=== PATIENT | female | born 1960 | race African-American/Black ===

== ENCOUNTER → 2020-07-08 13:52 | Outpatient (BNVA) | payer MEDICARE, SELFPAY | PROVIDERS: PCP Family Medicine; Referring Provider Family Medicine; Visit Provider Anesthesiology | DX: G89.4 Chronic pain syndrome (principal); M48.062 Spinal stenosis, lumbar region with neurogenic claudication; Z79.891 Long term (current) use of opiate analgesic | CPT/HCPCS: 99213 ==

== ENCOUNTER 2020-07-09 13:00 | Outpatient (RCR) | payer MEDICARE, SELFPAY ==
--- NOTE | 2020-07-09 13:33 | MHC.PT.OD ---
[facility] [place] [facility] [place] [facility] [employer] [facility] [address] Betzy Almanza [address] [phone] F: [phone] F: [phone] F: [phone] F: [phone] Physical Therapy Daily Note Diagnosis: Date of Surgery: Date of Evaluation: 07/07/20 Treatments to Date: 12 Cancellations to Date: No Shows to Date: Authorized Visits: 16 Insurance End Date: Precautions/ Contraindications:IE: PATIENT IS A 59 Y/O FEMALE WITH C/O OF DIFFICULTY WALKING AND POOR BALANCE. PATIENT DOES HAVE HX OF LEFT CVA WITH RIGHT SIDE WEAKNESS. 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 PATIENT DOES WEAR LET SHOE FOAM ORTHOSIS TO ADDRESS 1ST MTP WEIGHT SHIFT WELL A CUSTOM J BRACE WITH MEDIAL/LATERAL STABILITY. PATIENT LIVES AT HOME WITH ROOMMATE ON A 3RD FLOOR, WITH ELEVATOR ACCESS. PATIENT IS CURRENTLY WALKING WITH FWW FOR AMBULATION UP TO COMMUNITY DISTANCE WITH DIFFICULTY OF 500 FEET. PRIOR WALKING WITH SINGLE POINT CANE. PATIENT ALSO REPORTS HX OF FALLS. Subjective: PATIENT REPORTS BEING COMPLIANT WITH HEP AND WALKING PROGRAM AT HOME WITH HELP OF ELECTRONICS RECYCLER. PATIENT DOES REPORT PAIN DOES CHANGE IN FREQUENCY BUT IS MANAGED WITH USE OF MEDICATIONS AND ACTIVITY MANAGEMENT. PATIENT REPORTS HAVING FITTED FOR SHOES TO ADDRESS DIABETES. PATIENT DOES REPORT SHE HAS SEEN IMPROVEMENT WITH ADL'S WITH USE OF FWW AND ENERGY CONSERVATION TECHNIQUES. Pain Score: 7 Pain Location: LUMBAR Objective Flowsheet: Tests & Measures HIP GIRDLE MMT: ABDUCTION: 4-/5 BILATERAL ADDUCTION: 4/5 IR: RIGHT 4/5 LEFT 4-/5 ER: RIGHT 4/5 LEFT 4-/5 PATIENT ABLE TO WALK DISTANCE OF 100 FEET WITH REST BREAKS AND USE OF FWW KNEE EXTENSORS: 4+/5 BILATERAL KNEE FLEXORS: 4+/5 BILATERAL Exercises REVIEW AND PATIENT AND MATERIALS RECYCLER EDUCATION OF DISCHARGE PLAN OF CARE. D/C ASSESMENT Modalities TENS (LUMBAR, 100 PPS, 0 RAMP, 4.5 MA) Assessment: PATIENT PRESENTS WITHSAFE USE OF FWW WITH WALKING AND TRANSFERS. OVERALL IMPROVEMENT OF CORE CONTROL AND LE IS PRESENT ALLOWING FOR IMPROVED STATIC BALANCE AND STEPPING STRATEGIES OF 50%. PATIENT WILL BENEFIT FROM MOTORIZED SCOOTER FOR AMBULATION OF > 150 DUE TO FATIGUE, DECREASED PROPIOCEPTION AND DECREASED SENSATION. PT Plan: DYNAMIC STABILITY, BALANCE PROGRESSION, GAIT TRAINING, LE STRENGTHENING, INCREASED AROM, TE, MAN, TA, NR, GAIT, MODALITIES PRN Discharge Today? Yes Short Term Goals: 1. MET ( RIGHT: 10 LEFT: 9) 2. INDEPENDENT WITH HEP Radiagraph Operator Goals: 1. PATIENT WILL TOLERATE 15 MINUTES OF STANDING WITH USE OF FWW PRN (80% MET) 2. PATIENT WILL PRESENT WITH HEEL STRIKE ON LEFT FOOT 25% OF GAIT CYCLE. (MET WITH USE FWW) 3. INCREASE MMT TO LE BY 1 MM GRADE TO ASSIST WITH TRANSFERS AND GAIT (MET 4-/5) 4. PATIENT WILL PRESENT WITH 50% STEPPING STRATEGIES WITH WEIGHT SHIFT (MET) 5. PATIENT WILL PRESENT WITH SYMMETRICAL WEIGHT SHIFT THROUGH GAIT CYCLE 6. DECREASE PAIN AT WORST TO 5/10 (NOT MET) 7. INCREASE ACTIVITY TOLERANCE TO 20 MINUTES TO ASSIST WITH ADLS (75% MET) 8. PATIENT WILL BE ABLE TO TOLERATE AMBULATION OF COMMUNITY DISTANCES WITH PROPER AND SAFE USE OF AD
--- NOTE | 2020-07-09 13:42 | MHC.PT.DC ---
[facility] [place] [facility] [place] Office [place] Office [address] Betzy Almanza [address] [phone] F: [phone] F: [phone] F: [phone] F: [phone] Physical Therapy Discharge Report Diagnosis: LOWER BACK PAIN AND DIFFICULTY WITH WALKING Date of Surgery: Date of Evaluation: 04/28/20 Date of Discharge: 07/09/20 Treatments to Date: 12 Cancellations to Date: 3 No Shows to Date: Discharge Status: Independent with HEP Discharge Summary: PATIENT REPORTS BEING COMPLIANT WITH HEP AND WALKING PROGRAM AT HOME WITH HELP OF SOCIAL WORK ASSISTANT. PATIENT DOES REPORT PAIN DOES CHANGE IN FREQUENCY BUT IS MANAGED WITH USE OF MEDICATIONS AND ACTIVITY MANAGEMENT. PATIENT REPORTS HAVING FITTED FOR SHOES TO ADDRESS DIABETES. PATIENT DOES REPORT SHE HAS SEEN IMPROVEMENT WITH ADL'S WITH USE OF FWW AND ENERGY CONSERVATION TECHNIQUES. PATIENT TO CONTINUE WITH HEP TO MAINTAIN AND FURTHER PROGRESS STATUS. WILL WARRANT USE OF MOTORIZED SCOOTER FOR COMMUNITY DISTANCES. Please sign and return to therapist. Thank you for your referral.
== END 2020-07-30 08:40 | disposition other institution (70) ==
LOC: HO.PTWFD 13:00
PROVIDERS: PCP Family Medicine; Visit Provider Family Medicine
DX: R29.898 Other symptoms and signs involving the musculoskeletal system (principal); R26.81 Unsteadiness on feet; M79.606 Pain in leg, unspecified
CPT/HCPCS: 97014; 97110

== ENCOUNTER 2020-07-14 15:07 | Outpatient (REF) | payer MEDICARE, SELFPAY ==
--- NOTE | 2020-07-14 15:15 | MR_ITS ---
EXAMINATION: MR LUMBAR SPINE WITHOUT CONTRAST CLINICAL INFORMATION: Spinal stenosis. Neurogenic claudication. COMPARISON: No relevant prior imaging. TECHNIQUE: MRI of the lumbar spine was obtained using routine sequences without contrast. FINDINGS: There is transitional anatomy at the lumbosacral junction with partial lumbarization of S1. There is slight grade 1 anterolisthesis of L3 on L4 related to facet degenerative changes at this level. Alignment is otherwise normal. Vertebral heights are preserved. No acute bone marrow signal changes. There are mild type II degenerative endplate changes at L5-S1. Bone marrow signal intensity is otherwise unremarkable. There is slight loss of intervertebral disc height and T2 signal intensity at L5-S1. Disc desiccation at multiple additional levels. The tip of the conus medullaris is located at L1-L2. No mass effect on the conus. Visualized distal cord signal intensity is normal. At L1-L2 the annular contour is normal. No canal or neuroforaminal compromise. At L2-L3 the annular contour is normal. Bilateral facet degenerative change. No canal stenosis. No mass effect on the traversing or foraminal nerve root. At L2-L3 there is a pseudodisc bulge. Advanced facet degenerative change. Mild canal stenosis. No mass effect on the traversing or foraminal nerve root. At L4-L5 there is a diffusely bulging disc. Advanced bilateral facet degenerative change. Mild canal stenosis. No mass effect on the traversing or foraminal nerve roots. At L5-S1 there is a broad shallow right central protrusion superimposed upon a bulging disc that causes indentation of the thecal sac. Bilateral facet degenerative change. No canal stenosis. Partial effacement of perineural fat with no more than mild mass effect on the left L5 foraminal nerve roots. Limited visualization the retroperitoneal anatomy reveals no abnormal finding. Psoas and paraspinal muscle groups are symmetric. IMPRESSION: There is transitional spinal anatomy at the lumbosacral junction with partial lumbarization of S1. There is multilevel degenerative spondylosis of the lumbar spine with slight grade 1 anterolisthesis of L3 on L4. There is mild canal stenosis at L3-L4 and L4-L5. Otherwise no canal compromise. A bulging disc in conjunction with facet degenerative change at L5-S1 causes no more than mild mass effect on the left L5 foraminal nerve root.
== END 2020-07-14 15:08 | disposition home or self-care (01) ==
LOC: HO.MRI 15:07
PROVIDERS: Visit Provider Anesthesiology
DX: M48.062 Spinal stenosis, lumbar region with neurogenic claudication (principal)
CPT/HCPCS: 72148

== ENCOUNTER → 2020-07-31 12:34 | Outpatient (BNVA) | payer MEDICARE, SELFPAY | PROVIDERS: PCP Family Medicine; Referring Provider Family Medicine; Visit Provider Dietitian, Registered | DX: Z76.89 Persons encountering health services in other specified circumstances (principal) ==

== ENCOUNTER → 2020-08-06 13:51 | Outpatient (BNVA) | payer MEDICARE, SELFPAY | PROVIDERS: PCP Family Medicine; Referring Provider Family Medicine; Visit Provider Nurse Practitioner Gerontology | DX: E11.42 Type 2 diabetes mellitus with diabetic polyneuropathy (principal); E11.22 Type 2 diabetes mellitus with diabetic chronic kidney disease; I12.9 Hypertensive chronic kidney disease with stage 1 through stage 4 chronic kidney disease, or unspecified chronic kidney disease; N18.4 Chronic kidney disease, stage 4 (severe); Z79.4 Long term (current) use of insulin; E78.5 Hyperlipidemia, unspecified | CPT/HCPCS: 82947; 99212 ==

== ENCOUNTER → 2020-08-10 13:07 | Outpatient (BNVA) | payer MEDICARE, SELFPAY | PROVIDERS: PCP Family Medicine; Visit Provider Anesthesiology | DX: G89.4 Chronic pain syndrome (principal); M48.062 Spinal stenosis, lumbar region with neurogenic claudication; Z79.891 Long term (current) use of opiate analgesic | CPT/HCPCS: 99212 ==

== ENCOUNTER → 2020-09-16 13:54 | Outpatient (BNVA) | payer MEDICARE, SELFPAY | PROVIDERS: PCP Family Medicine; Visit Provider Dietitian, Registered | DX: Z76.89 Persons encountering health services in other specified circumstances (principal) ==

== ENCOUNTER → 2020-09-21 14:26 | Outpatient (BNVA) | payer MEDICARE, SELFPAY | PROVIDERS: PCP Family Medicine; Visit Provider Nurse Practitioner Gerontology | DX: Z13.89 Encounter for screening for other disorder (principal) | CPT/HCPCS: Q3014 ==

== ENCOUNTER 2020-09-28 12:26 | Outpatient (REF) | payer MEDICARE, SELFPAY ==
[2020-09-28 13:27] LABS: Basophils Absolute Auto 0.1 X10*3/uL (0.0-0.2); Basophils Percent Auto 0.5 % (0-2); Eosinophils Absolute Auto 0.3 X10*3/uL (0.0-0.4); Eosinophils Percent Auto 3.1 % (0-4); Hematocrit 26.8 % (37-47); Hemoglobin 8.4 g/dl (12.0-16.0); Imm Gran Abs Auto 0.04 X10*3/uL (0.00-0.03); Imm Gran Pct Auto 0.4 % (0.0-0.4); Immature Retic Fraction 37.4 % (3.0-15.9); Lymphocytes Absolute Auto 1.3 X10*3/uL (1.2-4.9); Lymphocytes Percent Auto 13.2 % (20-40); MANUAL DIFF FLAG SCAN; Mean Corpuscular HGB Conc 31.3 g/dl (31.0-35.0); Mean Corpuscular Volume 89.3 fL (80-98); Mean Platelet Volume 11.2 fL (9.4-12.3); Monocytes Absolute Auto 0.6 X10*3/uL (0.1-1.2); Monocytes Percent Auto 5.9 % (2-11); NRBC Pct Auto 0.2 /100WBC (0.0-0.2); Neutrophils Absolute Auto 7.5 X10*3/uL (2.0-8.3); Neutrophils Percent Auto 76.9 % (45-73); Platelet Count 299 X10*3/uL (160-400); Red Cell Distribution Width 20.9 % (11.0-16.0); Retic HGB Equivalent 31.3 pg (30.0-35.0); Reticulocyte Percent 5.9 % (0.5-1.8); Reticulocytes Absolute 0.176 X10*6/uL (0.026-0.095); SCAN SMEAR FLAG 1; White Blood Count 9.7 X10*3/uL (4.8-10.8)
[2020-09-28 13:53] LABS: Alanine Aminotransferase 13 U/L (0-31); Albumin Level 3.8 g/dL (3.5-5.0); Alkaline Phosphatase 101 U/L (39-117); Anion Gap 14 (12-20); Aspartate Amino Transferase 11 U/L (5-31); Bilirubin Total 0.3 mg/dL (0.0-1.0); Blood Urea Nitrogen 34 mg/dL (9-16); Calcium 8.8 mg/dL (8.4-10.2); Carbon Dioxide 27 mmol/L (22-29); Chloride 104 mmol/L (96-108); Estimated Glomerular Filt Rate 28; Glucose Random 251 mg/dL (60-115); Iron 64 mcg/dL (30-160); Percent Iron Saturation 27 % (15-50); Potassium 4.2 mmol/l (3.3-5.1); Sodium 141 mmol/L (135-145); Total Iron Binding Capacity 238 mcg/dL (228-428); Total Protein 6.7 g/dL (6.5-8.0); Unsaturated Iron Binding 174 ug/dL
[2020-09-28 13:59] LABS: B Type Natriuretic Peptide 273 pg/mL (<100)
[2020-09-28 14:08] LABS: SLIDE REVIEW VERIFIED
[2020-09-28 14:14] LABS: Ferritin 220 ng/mL (10-250)
[2020-09-28 14:30] LABS: Folate 8.7 ng/mL (> or = 4.0); Vitamin B12 456 pg/mL (200-900)
[2020-09-29 14:05] LABS: Microalbum/Creatinine Ratio Ur 27.9 ug/mg cr
[2020-10-03 14:13] LABS: Fructosamine 351 umol/L (205-285)
== END 2020-09-28 12:27 | disposition home or self-care (01) ==
LOC: HO.WFDLDS 12:26
PROVIDERS: Nurse Practitioner Gerontology; Visit Provider Family Medicine
DX: I50.9 Heart failure, unspecified (principal); D64.9 Anemia, unspecified; N17.9 Acute kidney failure, unspecified; E11.22 Type 2 diabetes mellitus with diabetic chronic kidney disease; E11.42 Type 2 diabetes mellitus with diabetic polyneuropathy
CPT/HCPCS: 36415; 80053; 82043; 82607; 82728; 82746; 82985; 83540; 83880; 85025; 85045

== ENCOUNTER 2020-09-29 | Outpatient (REF) | payer MEDICARE, SELFPAY | END 2020-09-29 00:01 | disposition home or self-care (01) | LOC: HO.LNP | PROVIDERS: Visit Provider Family Medicine | DX: Z13.89 Encounter for screening for other disorder (principal) ==

== ENCOUNTER 2020-10-09 12:10 | Outpatient (REF) | payer MEDICARE, SELFPAY ==
[2020-10-09 13:53] LABS: MANUAL DIFF FLAG NO
[2020-10-09 13:59] LABS: Basophils Absolute Auto 0.1 X10*3/uL (0.0-0.2); Basophils Percent Auto 0.5 % (0-2); Eosinophils Absolute Auto 0.3 X10*3/uL (0.0-0.4); Eosinophils Percent Auto 2.9 % (0-4); Hematocrit 28.8 % (37-47); Hemoglobin 8.6 g/dl (12.0-16.0); Imm Gran Abs Auto 0.05 X10*3/uL (0.00-0.03); Imm Gran Pct Auto 0.5 % (0.0-0.4); Lymphocytes Absolute Auto 1.6 X10*3/uL (1.2-4.9); Lymphocytes Percent Auto 15.7 % (20-40); Mean Corpuscular HGB Conc 29.9 g/dl (31.0-35.0); Mean Corpuscular Hemoglobin 27.9 pg (27.0-33.0); Mean Corpuscular Volume 93.5 fL (80-98); Mean Platelet Volume 11.1 fL (9.4-12.3); Monocytes Absolute Auto 0.8 X10*3/uL (0.1-1.2); Monocytes Percent Auto 7.6 % (2-11); Neutrophils Absolute Auto 7.4 X10*3/uL (2.0-8.3); Neutrophils Percent Auto 72.8 % (45-73); Platelet Count 346 X10*3/uL (160-400); Red Blood Count 3.08 X10*6/uL (4.20-5.50); Red Cell Distribution Width 21.2 % (11.0-16.0); White Blood Count 10.1 X10*3/uL (4.8-10.8)
[2020-10-09 14:29] LABS: Anion Gap 12 (12-20); Blood Urea Nitrogen 22 mg/dL (9-16); Calcium 8.5 mg/dL (8.4-10.2); Carbon Dioxide 28 mmol/L (22-29); Chloride 102 mmol/L (96-108); Estimated Glomerular Filt Rate 31; Glucose Random 192 mg/dL (60-115); Potassium 4.6 mmol/l (3.3-5.1); Sodium 137 mmol/L (135-145)
[2020-10-09 14:34] LABS: B Type Natriuretic Peptide 205 pg/mL (<100)
== END 2020-10-09 12:11 | disposition home or self-care (01) ==
LOC: HO.WFDLDS 12:10
PROVIDERS: Visit Provider Family Medicine
DX: I50.9 Heart failure, unspecified (principal); N17.9 Acute kidney failure, unspecified; D64.9 Anemia, unspecified
CPT/HCPCS: 36415; 80048; 83880; 85025

== ENCOUNTER → 2020-11-02 12:37 | Outpatient (BNVA) | payer MEDICARE, SELFPAY | PROVIDERS: PCP Family Medicine; Visit Provider Nurse Practitioner Gerontology | DX: Z13.89 Encounter for screening for other disorder (principal) | CPT/HCPCS: Q3014 ==

== ENCOUNTER → 2020-12-16 11:25 | Outpatient (BNVA) | payer MEDICARE, SELFPAY | PROVIDERS: PCP Family Medicine; Visit Provider Dietitian, Registered ==

== ENCOUNTER 2020-12-22 11:47 | Outpatient (REF) | payer MEDICARE, SELFPAY ==
[2020-12-23 08:36] LABS: HBsAGNum1 0.15 S/CO (0.00-0.99); HIV AB/AG Nonreactive (Nonreactive); HIV Num 1 0.06 S/CO (0.00-0.99); Hepatitis B Surface Antigen Negative (Negative)
[2020-12-23 08:45] LABS: Syphilis Screen Nonreactive (Nonreactive)
[2020-12-23 09:02] LABS: ~HepC Num1 0.11 S/CO (0.00-0.79); ~Hepatitis C Antibody Nonreactive (Nonreactive)
== END 2020-12-22 11:48 | disposition home or self-care (01) ==
LOC: HO.WFDLDS 11:47
PROVIDERS: Visit Provider Obstetrics & Gynecology
DX: Z11.3 Encounter for screening for infections with a predominantly sexual mode of transmission (principal); Z11.4 Encounter for screening for human immunodeficiency virus [HIV]
CPT/HCPCS: 36415; 86780; 86803; 87340; 87389

== ENCOUNTER 2021-01-01 12:19 | Outpatient (RCR) | payer MEDICARE, SELFPAY | END 2021-01-01 13:29 | disposition other institution (70) | LOC: HO.PTWFD 12:19 | PROVIDERS: Visit Provider Family Medicine | DX: S29.012A Strain of muscle and tendon of back wall of thorax, initial encounter (principal) ==

== ENCOUNTER 2021-01-07 10:24 | Outpatient (RCR) | payer MEDICARE, SELFPAY | END 2021-02-04 08:42 | disposition other institution (70) | LOC: HO.PTWFD 10:24 | PROVIDERS: Visit Provider Family Medicine | DX: S29.012A Strain of muscle and tendon of back wall of thorax, initial encounter (principal) | CPT/HCPCS: 97163; 97530 ==

== ENCOUNTER → 2021-02-08 11:11 | Outpatient (BNVA) | payer MEDICARE, SELFPAY | PROVIDERS: PCP Family Medicine; Visit Provider Nurse Practitioner Gerontology | DX: E11.42 Type 2 diabetes mellitus with diabetic polyneuropathy (principal); E11.22 Type 2 diabetes mellitus with diabetic chronic kidney disease; I12.9 Hypertensive chronic kidney disease with stage 1 through stage 4 chronic kidney disease, or unspecified chronic kidney disease; N18.9 Chronic kidney disease, unspecified; E78.5 Hyperlipidemia, unspecified | CPT/HCPCS: Q3014 ==

== ENCOUNTER → 2021-02-09 10:50 | Outpatient (BNVA) | payer MEDICARE, SELFPAY | PROVIDERS: PCP Family Medicine; Visit Provider Nurse Practitioner Family | DX: G47.30 Sleep apnea, unspecified (principal) | CPT/HCPCS: Q3014 ==

== ENCOUNTER 2021-02-12 13:52 | Outpatient (REF) | payer MEDICARE, SELFPAY ==
[2021-02-12 14:31] LABS: MANUAL DIFF FLAG NO
[2021-02-12 14:37] LABS: Basophils Percent Auto 0.4 % (0-2); Eosinophils Absolute Auto 0.4 X10*3/uL (0.0-0.4); Hematocrit 29.1 % (37-47); Imm Gran Abs Auto 0.04 X10*3/uL (0.00-0.03); Imm Gran Pct Auto 0.5 % (0.0-0.4); Lymphocytes Absolute Auto 1.5 X10*3/uL (1.2-4.9); Lymphocytes Percent Auto 20.7 % (20-40); Mean Corpuscular HGB Conc 30.9 g/dl (31.0-35.0); Mean Corpuscular Hemoglobin 27.3 pg (27.0-33.0); Mean Corpuscular Volume 88.2 fL (80-98); Monocytes Absolute Auto 0.6 X10*3/uL (0.1-1.2); Monocytes Percent Auto 8.3 % (2-11); Neutrophils Absolute Auto 4.9 X10*3/uL (2.0-8.3); Neutrophils Percent Auto 65.1 % (45-73); Platelet Count 381 X10*3/uL (160-400); Red Cell Distribution Width 16.4 % (11.0-16.0); White Blood Count 7.5 X10*3/uL (4.8-10.8)
[2021-02-12 14:44] LABS: Estimated Average Glucose 183 mg/dL; Hemoglobin A1C 149.6718 umol/L
[2021-02-12 14:58] LABS: Cholesterol 106 mg/dL; HDL Cholesterol 50 mg/dL; LDL Cholesterol Calculated 28 mg/dl; Triglycerides 142 mg/dL
[2021-02-12 15:22] LABS: Erythrocyte Sedimentation Rate 70 MM/HR (0-20)
[2021-02-13 14:07] LABS: CRP High Sensitivity >10.0 mg/L
[2021-02-16 05:12] LABS: Fructosamine 424 umol/L (205-285)
== END 2021-02-12 13:53 | disposition home or self-care (01) ==
LOC: HO.LAB 13:52
PROVIDERS: PCP Family Medicine; Visit Provider Nurse Practitioner Gerontology
DX: S29.012A Strain of muscle and tendon of back wall of thorax, initial encounter (principal); E11.42 Type 2 diabetes mellitus with diabetic polyneuropathy; E11.22 Type 2 diabetes mellitus with diabetic chronic kidney disease; N18.9 Chronic kidney disease, unspecified
CPT/HCPCS: 36415; 80061; 82985; 83036; 85025; 85652; 86141

== ENCOUNTER → 2021-03-24 12:50 | Outpatient (BNVA) | payer MEDICARE, SELFPAY | PROVIDERS: PCP Family Medicine; Visit Provider Dietitian, Registered | DX: E11.22 Type 2 diabetes mellitus with diabetic chronic kidney disease (principal); N18.4 Chronic kidney disease, stage 4 (severe); Z79.4 Long term (current) use of insulin | CPT/HCPCS: 97803 ==

== ENCOUNTER → 2021-04-02 12:56 | Outpatient (BNVA) | payer MEDICARE, SELFPAY | PROVIDERS: PCP Family Medicine; Visit Provider Nurse Practitioner Gerontology | DX: E11.65 Type 2 diabetes mellitus with hyperglycemia (principal); E11.22 Type 2 diabetes mellitus with diabetic chronic kidney disease; E11.21 Type 2 diabetes mellitus with diabetic nephropathy; E11.42 Type 2 diabetes mellitus with diabetic polyneuropathy; I12.9 Hypertensive chronic kidney disease with stage 1 through stage 4 chronic kidney disease, or unspecified chronic kidney disease; N18.9 Chronic kidney disease, unspecified; E78.5 Hyperlipidemia, unspecified; E66.09 Other obesity due to excess calories; Z68.33 Body mass index [BMI] 33.0-33.9, adult; Z88.8 Allergy status to other drugs, medicaments and biological substances; Z79.4 Long term (current) use of insulin; Z79.899 Other long term (current) drug therapy | CPT/HCPCS: 82947; 99212 ==

== ENCOUNTER 2021-05-04 11:17 | Outpatient (REF) | payer OTHER, SELFPAY ==
--- NOTE | ~2021-05-04 | XR_ITS ---
EXAMINATION: XR HAND, RIGHT XR HAND, LEFT CLINICAL INFORMATION: Elevated ESR. COMPARISON: None TECHNIQUE: 3 views each hand. FINDINGS: LEFT HAND: There is mild reduction of the PIP and DIP joint space. The MCP joint space is normal. There are no bony erosive changes, fracture or dislocation. There is mild soft tissue swelling of the PIP joint 2nd through 5th digits. RIGHT HAND: There is mild reduction in the PIP and DIP joint space. The MCP joint space is maintained. There is no visible acute fracture, dislocation or subluxation. No bony erosive changes. There is mild soft tissue swelling of the PIP joints 2nd through 5th digits. XR/XR hand LT min 3V IMPRESSION: Bilateral mild degenerative arthritic changes PIP and DIP joints. No osteopenia. No bony erosive changes. Mild soft tissue swelling PIP joints 2nd through 5th digits of both hands.
--- NOTE | ~2021-05-04 | XR_ITS ---
EXAMINATION: XR HAND, RIGHT XR HAND, LEFT CLINICAL INFORMATION: Elevated ESR. COMPARISON: None TECHNIQUE: 3 views each hand. FINDINGS: LEFT HAND: There is mild reduction of the PIP and DIP joint space. The MCP joint space is normal. There are no bony erosive changes, fracture or dislocation. There is mild soft tissue swelling of the PIP joint 2nd through 5th digits. RIGHT HAND: There is mild reduction in the PIP and DIP joint space. The MCP joint space is maintained. There is no visible acute fracture, dislocation or subluxation. No bony erosive changes. There is mild soft tissue swelling of the PIP joints 2nd through 5th digits. XR/XR hand RT min 3V IMPRESSION: Bilateral mild degenerative arthritic changes PIP and DIP joints. No osteopenia. No bony erosive changes. Mild soft tissue swelling PIP joints 2nd through 5th digits of both hands.
== END 2021-05-04 11:18 | disposition home or self-care (01) ==
LOC: HO.XRAY 11:17
PROVIDERS: PCP Family Medicine; Visit Provider Student in an Organized Health Care Education/Training Program
DX: R79.82 Elevated C-reactive protein (CRP) (principal); R70.0 Elevated erythrocyte sedimentation rate
CPT/HCPCS: 73130; 99202

== ENCOUNTER → 2021-05-11 10:37 | Outpatient (BNVA) | payer OTHER, SELFPAY | PROVIDERS: PCP Family Medicine; Visit Provider Nurse Practitioner Family | CPT/HCPCS: Q3014 ==

== ENCOUNTER 2021-05-14 13:31 | Outpatient (REF) | payer OTHER, SELFPAY ==
[2021-05-14 14:50] LABS: Anion Gap 13 (12-20); Blood Urea Nitrogen 26 mg/dL (9-16); Calcium 9.5 mg/dL (8.4-10.2); Carbon Dioxide 27 mmol/L (22-29); Chloride 100 mmol/L (96-108); Estimated Glomerular Filt Rate 26; Phosphorus 3.1 mg/dL (2.7-4.5); Potassium 4.3 mmol/L (3.3-5.1); Sodium 136 mmol/L (135-145)
[2021-05-14 15:13] LABS: Vitamin D 25-OH Total 18.7 ng/mL (>30)
[2021-05-17 13:01] LABS: Calcium (PTHI) 9.2 mg/dL (8.6-10.4); PTHI 167 pg/mL (14-64)
== END 2021-05-14 13:32 | disposition home or self-care (01) ==
LOC: HO.LAB 13:31
PROVIDERS: Absent Provider Internal Medicine Nephrology; PCP Family Medicine; Visit Provider Student in an Organized Health Care Education/Training Program
DX: I12.9 Hypertensive chronic kidney disease with stage 1 through stage 4 chronic kidney disease, or unspecified chronic kidney disease (principal); D63.1 Anemia in chronic kidney disease; N18.4 Chronic kidney disease, stage 4 (severe)
CPT/HCPCS: 36415; 80051; 82306; 82310; 82565; 83970; 84100; 84520

== ENCOUNTER → 2021-05-21 10:25 | Outpatient (BNVA) | payer OTHER, SELFPAY | PROVIDERS: Visit Provider Student in an Organized Health Care Education/Training Program ==

== ENCOUNTER → 2021-07-20 10:32 | Outpatient (BNVA) | payer OTHER, SELFPAY | PROVIDERS: PCP Family Medicine; Visit Provider Nurse Practitioner Gerontology | DX: Z13.89 Encounter for screening for other disorder (principal) | CPT/HCPCS: Q3014 ==

== ENCOUNTER 2021-08-31 10:36 | Outpatient (REF) | payer OTHER, SELFPAY ==
[2021-08-31 11:09] LABS: MANUAL DIFF FLAG NO
[2021-08-31 11:49] LABS: Basophils Percent Auto 0.5 % (0-2); Eosinophils Absolute Auto 0.2 X10*3/uL (0.0-0.4); Hematocrit 33.2 % (37.0-47.0); Imm Gran Abs Auto 0.02 X10*3/uL (0.00-0.03); Imm Gran Pct Auto 0.3 % (0.0-0.4); Lymphocytes Absolute Auto 1.4 X10*3/uL (1.2-4.9); Lymphocytes Percent Auto 18.4 % (20-40); Mean Corpuscular HGB Conc 30.1 g/dl (31.0-35.0); Mean Corpuscular Hemoglobin 24.6 pg (27.0-33.0); Mean Corpuscular Volume 81.6 fL (80.0-98.0); Mean Platelet Volume 10.8 fL (9.4-12.3); Monocytes Absolute Auto 0.6 X10*3/uL (0.1-1.2); Monocytes Percent Auto 8.1 % (2-11); Neutrophils Absolute Auto 5.2 x10*3/uL (2.0-8.3); Neutrophils Percent Auto 69.7 % (45-73); Platelet Count 337 X10*3/uL (160-400); Red Blood Count 4.07 X10*6/uL (4.20-5.50); Red Cell Distribution Width 26.1 % (11.0-16.0); White Blood Count 7.4 X10*3/uL (4.8-10.8)
[2021-08-31 12:15] LABS: Iron 40 mcg/dL (30-160); Percent Iron Saturation 13 % (15-50); Total Iron Binding Capacity 300 mcg/dL (228-428); Unsaturated Iron Binding 260 ug/dL
[2021-08-31 12:22] LABS: Alanine Aminotransferase 10 U/L (0-31); Albumin Level 3.9 g/dL (3.5-5.0); Alkaline Phosphatase 96 U/L (39-117); Anion Gap 17 (12-20); Aspartate Amino Transferase 10 U/L (5-31); Bilirubin Total 0.5 mg/dL (0.0-1.0); Blood Urea Nitrogen 28 mg/dL (9-16); C Reactive Protein 1.75 mg/dL (< or = 0.50); Calcium 9.7 mg/dL (8.4-10.2); Carbon Dioxide 24 mmol/L (22-29); Chloride 102 mmol/L (96-108); Estimated Glomerular Filt Rate 21; Glucose Random 160 mg/dL (60-115); Potassium 3.8 mmol/L (3.3-5.1); Rheumatoid Factor < 15.0 IU/mL (<15.0); Sodium 139 mmol/L (135-145); Total Protein 7.1 g/dL (6.5-8.0)
[2021-08-31 12:29] LABS: Erythrocyte Sedimentation Rate 40 MM/HR (0-20)
[2021-08-31 12:37] LABS: Vitamin D 25-OH Total 35.2 ng/mL (>30)
[2021-09-01 13:41] LABS: Calcium (PTHI) 9.3 mg/dL (8.6-10.4); PTHI 118 pg/mL (14-64)
[2021-09-02 13:53] LABS: Prot Elec - Albumin 3.7 g/dL (3.8-4.8); Prot Elec - Alpha1 0.4 g/dL (0.2-0.3); Prot Elec - Alpha2 0.9 g/dL (0.5-0.9); Prot Elec - Beta 1 0.4 g/dL (0.4-0.6); Prot Elec - Beta 2 0.4 g/dL (0.2-0.5); Prot Elec - Gamma 1.2 g/dL (0.8-1.7)
[2021-09-02 23:31] LABS: Cyclic Citrullinated Peptide <16 UNITS
[2021-09-07 15:51] LABS: IgA 294 mg/dL (47-310); IgG 1360 mg/dL (600-1640); IgM 69 mg/dL (50-300)
== END 2021-08-31 10:37 | disposition home or self-care (01) ==
LOC: HO.LAB 10:36
PROVIDERS: Student in an Organized Health Care Education/Training Program; PCP Family Medicine; Visit Provider Internal Medicine Nephrology
DX: I12.9 Hypertensive chronic kidney disease with stage 1 through stage 4 chronic kidney disease, or unspecified chronic kidney disease (principal); N18.30 Chronic kidney disease, stage 3 unspecified; E11.22 Type 2 diabetes mellitus with diabetic chronic kidney disease; D63.1 Anemia in chronic kidney disease; R70.0 Elevated erythrocyte sedimentation rate; R79.82 Elevated C-reactive protein (CRP)
CPT/HCPCS: 36415; 80053; 82306; 82784; 83540; 83970; 84100; 84165; 85025; 85652; 86140; 86200; 86334; 86431

== ENCOUNTER → 2021-09-28 11:41 | Outpatient (REF) | payer OTHER, SELFPAY ==
[2021-09-28 15:00] LABS: Influenza A PCR NEGATIVE (Negative); Influenza B PCR NEGATIVE (Negative); Resp Syncy Virus RNA Qual PCR NEGATIVE (Negative); SARS COV2 PCR INHOUSE NEGATIVE (Negative)
== END ==
LOC: HO.SL 11:41
PROVIDERS: Hospitalist; PCP Family Medicine; Visit Provider Nurse Practitioner Family
DX: G47.33 Obstructive sleep apnea (adult) (pediatric) (principal); J06.9 Acute upper respiratory infection, unspecified; J02.8 Acute pharyngitis due to other specified organisms; B97.89 Other viral agents as the cause of diseases classified elsewhere; I50.9 Heart failure, unspecified; D64.9 Anemia, unspecified; N17.9 Acute kidney failure, unspecified; E11.22 Type 2 diabetes mellitus with diabetic chronic kidney disease; E11.42 Type 2 diabetes mellitus with diabetic polyneuropathy; Z20.822 Contact with and (suspected) exposure to COVID-19
CPT/HCPCS: 0241U; 99211

== ENCOUNTER → 2021-10-04 14:04 | Outpatient (BNVA) | payer OTHER, SELFPAY | PROVIDERS: PCP Family Medicine; Visit Provider Dietitian, Registered | DX: E11.22 Type 2 diabetes mellitus with diabetic chronic kidney disease (principal); I12.9 Hypertensive chronic kidney disease with stage 1 through stage 4 chronic kidney disease, or unspecified chronic kidney disease; N18.4 Chronic kidney disease, stage 4 (severe) | CPT/HCPCS: 97803 ==

== ENCOUNTER 2021-10-12 10:37 | Outpatient (REF) | payer OTHER, SELFPAY ==
[2021-10-12 12:05] LABS: Estimated Average Glucose 148 mg/dL; Hemoglobin A1c % 6.8 %
[2021-10-12 12:18] LABS: Alanine Aminotransferase 10 U/L (0-31); Albumin Level 3.9 g/dL (3.5-5.0); Alkaline Phosphatase 93 U/L (39-117); Anion Gap 16 (12-20); Aspartate Amino Transferase 8 U/L (5-31); Bilirubin Total 0.6 mg/dL (0.0-1.0); Blood Urea Nitrogen 19 mg/dL (9-16); Calcium 9.5 mg/dL (8.4-10.2); Carbon Dioxide 25 mmol/L (22-29); Chloride 105 mmol/L (96-108); Estimated Glomerular Filt Rate 26; Glucose Fasting 156 mg/dL (60-99); Potassium 3.9 mmol/L (3.3-5.1); Sodium 142 mmol/L (135-145); Total Protein 7.5 g/dL (6.5-8.0)
== END 2021-10-12 10:38 | disposition home or self-care (01) ==
LOC: HO.WFDLDS 10:37
PROVIDERS: Visit Provider Family Medicine
DX: Z00.00 Encounter for general adult medical examination without abnormal findings (principal); R73.01 Impaired fasting glucose
CPT/HCPCS: 36415; 80053; 83036

== ENCOUNTER 2022-03-23 12:04 | Outpatient (REF) | payer OTHER, SELFPAY ==
[2022-03-23 13:56] LABS: Alanine Aminotransferase 7 U/L (0-31); Albumin Level 3.7 g/dL (3.5-5.0); Alkaline Phosphatase 137 U/L (39-117); Anion Gap 13 (12-20); Aspartate Amino Transferase 7 U/L (5-31); Bilirubin Total 0.5 mg/dL (0.0-1.0); Blood Urea Nitrogen 26 mg/dL (9-16); Calcium 9.2 mg/dL (8.4-10.2); Carbon Dioxide 25 mmol/L (22-29); Chloride 105 mmol/L (96-108); Estimated Glomerular Filt Rate 21; Glucose Random 161 mg/dL (60-115); Potassium 3.7 mmol/L (3.3-5.1); Sodium 139 mmol/L (135-145)
[2022-03-23 14:32] LABS: B Type Natriuretic Peptide 210 pg/mL (<100)
== END 2022-03-23 12:05 | disposition home or self-care (01) ==
LOC: HO.WFDLDS 12:04
PROVIDERS: Visit Provider Family Medicine
DX: N18.4 Chronic kidney disease, stage 4 (severe) (principal); I50.9 Heart failure, unspecified
CPT/HCPCS: 36415; 80053; 83880

== ENCOUNTER 2022-04-27 | Outpatient (REF) | payer OTHER, SELFPAY | END 2022-04-27 00:01 | disposition home or self-care (01) | LOC: HO.LNP | PROVIDERS: Visit Provider Family Medicine | DX: I11.0 Hypertensive heart disease with heart failure (principal); I50.9 Heart failure, unspecified; L73.2 Hidradenitis suppurativa | CPT/HCPCS: 87071; 87077; 87186; 87205 ==

== ENCOUNTER 2022-05-11 10:59 | Outpatient (REF) | payer OTHER, SELFPAY ==
[2022-05-11 13:40] LABS: MANUAL DIFF FLAG NO
[2022-05-11 13:45] LABS: Basophils Absolute Auto 0.1 X10*3/uL (0.0-0.2); Eosinophils Absolute Auto 0.2 X10*3/uL (0.0-0.4); Eosinophils Percent Auto 3.3 % (0-4); Imm Gran Abs Auto 0.01 X10*3/uL (0.00-0.03); Imm Gran Pct Auto 0.2 % (0.0-0.4); Lymphocytes Absolute Auto 1.1 X10*3/uL (1.2-4.9); Lymphocytes Percent Auto 20.9 % (20-40); Mean Corpuscular Hemoglobin 25.9 pg (27.0-33.0); Mean Corpuscular Volume 83.6 fL (80.0-98.0); Mean Platelet Volume 11.7 fL (9.4-12.3); Monocytes Absolute Auto 0.5 X10*3/uL (0.1-1.2); Monocytes Percent Auto 9.3 % (2-11); Neutrophils Absolute Auto 3.4 x10*3/uL (2.0-8.3); Neutrophils Percent Auto 65.3 % (45-73); Platelet Count 390 X10*3/uL (160-400); Red Blood Count 3.47 X10*6/uL (4.20-5.50); Red Cell Distribution Width 15.7 % (11.0-16.0); White Blood Count 5.2 X10*3/uL (4.8-10.8)
[2022-05-11 14:22] LABS: Alanine Aminotransferase 9 U/L (0-31); Albumin Level 3.5 g/dL (3.5-5.0); Alkaline Phosphatase 116 U/L (39-117); Anion Gap 13 (12-20); Aspartate Amino Transferase 12 U/L (5-31); Bilirubin Total 0.4 mg/dL (0.0-1.0); Blood Urea Nitrogen 34 mg/dL (9-16); Carbon Dioxide 23 mmol/L (22-29); Chloride 103 mmol/L (96-108); Estimated Glomerular Filt Rate 19; Glucose Random 218 mg/dL (60-115); Potassium 4.3 mmol/L (3.3-5.1); Sodium 135 mmol/L (135-145); Total Protein 6.8 g/dL (6.5-8.0)
[2022-05-11 14:35] LABS: B Type Natriuretic Peptide 156 pg/mL (<100)
== END 2022-05-11 11:00 | disposition home or self-care (01) ==
LOC: HO.WFDLDS 10:59
PROVIDERS: Visit Provider Family Medicine
DX: Z00.00 Encounter for general adult medical examination without abnormal findings (principal); L73.2 Hidradenitis suppurativa; I50.9 Heart failure, unspecified
CPT/HCPCS: 36415; 80053; 83880; 85025

== ENCOUNTER 2022-06-13 12:53 | Outpatient (REF) | payer OTHER, SELFPAY | END 2022-06-13 12:54 | disposition home or self-care (01) | LOC: HO.LNP 12:53 | PROVIDERS: Visit Provider Family Medicine | DX: L73.9 Follicular disorder, unspecified (principal); Z22.322 Carrier or suspected carrier of Methicillin resistant Staphylococcus aureus | CPT/HCPCS: 87071; 87077; 87186; 87205 ==

== ENCOUNTER → 2022-08-12 09:46 | Outpatient (BNVA) | payer OTHER, SELFPAY | PROVIDERS: PCP Family Medicine; Visit Provider Nurse Practitioner Family | DX: G47.33 Obstructive sleep apnea (adult) (pediatric) (principal); Z99.89 Dependence on other enabling machines and devices | CPT/HCPCS: 99202 ==

== ENCOUNTER → 2022-12-12 10:42 | Outpatient (BNVA) | payer OTHER, SELFPAY | PROVIDERS: PCP Family Medicine; Visit Provider Nurse Practitioner Family | DX: G47.33 Obstructive sleep apnea (adult) (pediatric) (principal); R40.0 Somnolence; Z99.89 Dependence on other enabling machines and devices | CPT/HCPCS: 99212 ==

== ENCOUNTER 2023-04-17 13:49 | Outpatient (AMB) | payer OTHER, SELFPAY ==
--- NOTE | 2023-04-17 13:57 | A.OFFPC_ITS ---
Vital Signs 04/17/23 14:00 Height 5 ft 6 in Weight 217 lb BMI 35.0 BP 138/72 Blood Pressure Location Lt brachial Position Sitting Pulse 80 Pulse Source Pulse Oximeter Pulse Oximetry (%) 100 Oxygen Delivery Method Room Air Intake Visit Reasons: f/u chronic conditions Intake Note: Patient is here to follow up on chronic conditions and complains of left foot swelling. Patient would like to talk about [employer] system. Allergies baclofen Allergy (Severe, Verified 04/17/23 14:02) can't move sulfacetamide Allergy (Severe, Verified 04/17/23 14:02) tongue swelling sulfur Allergy (Severe, Verified 04/17/23 14:02) tongue swelling Medication List - Last Reconciled 04/17/23 by Tommie Suarez MD acetaminophen 650 mg (2 x 325 mg) PO Q8H PRN albuterol sulfate 90 mcg/actuation (Ventolin HFA) 2 puffs PO QID PRN ammonium lactate 12% 1 appl topical BID 30 days aspirin 81 mg PO DAILY atorvastatin 40 mg PO DAILY blood sugar diagnostic (FreeStyle Lite Strips) USE DIRECTED TO TEST BLOOD SUGAR THREE TIMES DAILY blood-glucose meter (FreeStyle Cheshire Lite kit) As directed 3x/day bumetanide 0.75 mg (1.5 x 0.5 mg) PO DAILY 90 days bumetanide 2 mg (2 x 1 mg) PO DAILY 30 days bupropion HCl 150 mg PO QAM calcitriol 0.25 mcg PO DAILY cariprazine (Vraylar) 1.5 mg PO DAILY cariprazine (Vraylar) 1.5 mg PO DAILY 30 days carvedilol 6.25 mg PO BID clopidogrel 75 mg PO DAILY 90 days docusate sodium (Colace) 100 mg PO TID PRN 30 days dulaglutide (Trulicity) 4.5 mg (0.5 mL) subcut QWEEK epoetin sally (Procrit) 2,000 units IV 3XW ergocalciferol (vitamin D2) 1,250 mcg PO QWEEK famotidine 40 mg PO DAILY 90 days fluticasone propion-salmeterol 250-50 mcg/dose (Advair Diskus) 1 ea PO BID 30 days gabapentin 100 mg PO BID hydralazine 50 mg PO TID 30 days insulin aspart U-100 (Novolog FlexPen U-100 Insulin aspart) 8 units (0.08 mL) subcut DAILY 30 days insulin glargine (Lantus Solostar U-100 Insulin) 33 units (0.33 mL) subcut QAM 30 days isosorbide mononitrate ER 30 mg PO DAILY lactulose 20 grams (30 mL) PO DAILY PRN 1 month lurasidone (Latuda) 20 mg PO DAILY magnesium hydroxide (Dulcolax (magnesium hydroxide)) 5 mL PO DAILY PRN 30 days miscellaneous medical supply Disposable Absorbent Pads DX: Urinary incontinence As directed, 2 per night, duration 999 days, 30 day supply montelukast 10 mg PO DAILY pantoprazole 20 mg PO DAILY 90 days venlafaxine ER 225 mg PO DAILY Tobacco use date assessed: 02/01/23 Dental Screening Dental Screen Date: 04/17/23 Did you have a dental visit in the last 12 months?: Yes Did you have a dental problem in the last 6 months where you did not have access to dental care?: No Was dental information given to patient?: No HPI f/u chronic conditions HPI Details 62 y/o female presents to f/u chronic conditions such as diabetes, CHF and renal failure. Had increased her Lantus to 28 units as she was having some elevated morning blood sugars. Further increased Lantus to 30 units. A1c today 04/17/23 is 8.2% which has worsened. She also has complaints of L foot swelling. HPI Comments History of Present Illness Details Documentation assistance for Tommie Suarez MD, was provided by Sanjiv Nguyen,? Networking Administrator on 04/17/2023 2:44 PM MAYI. I, Dr. Suarez, have read, observed, and verified documentation.? [facility] Medical History Chronic kidney disease, stage 4 (severe) Chronic pain syndrome Chronic, continuous use of opioids CVA (cerebral vascular accident) Essential hypertension Hyperlipidemia LDL goal <70 Myocardial infarction Obesity due to excess calories Sleep apnea Spinal stenosis, lumbar region with neurogenic claudication Type 2 diabetes mellitus with diabetic polyneuropathy Surgical History History of abdominoplasty History of rotator cuff surgery Hx of toe surgery Status post breast reduction Family History Father No problems noted. Mother Diabetes Hypertension Sister No problems noted. Sister No problems noted. Son No problems noted. Social History Household Members: Friend(s) Household Members Other:: roomate Housing: Apartment Alcohol intake: never Patient Tobacco Use Status: Former Tobacco user Quit Date: 2019 Tobacco use type: Cigarette Cigarette Packs Per Day: 0.5 e-Cigarette/Vaping Use: Never Used Second Hand Smoke Exposure: No Advance Directives Date on File: 07/07/20 service: No Current occupational status: disabled Current occupational exposures/hazards: No Cognitive needs: No Hearing needs: No Vision needs: No Questionnaire Thrive Questionnaire Date Thrive assessed: 05/19/21 BRITT-7 AMB Questionnaire BRITT-7 Date BRITT - 7 assessed: 05/19/21 Source: Developed by Drs. Andre Hilario, Kasey Patel, Jose Rausch and colleagues, with an educational micha from [employer]. Physical exam (Primary Care) Vital Signs: Last Vital Signs Pulse 80 04/17/23 14:00 BP 138/72 04/17/23 14:00 Pulse Ox 100 04/17/23 14:00 Oxygen Delivery Method Room Air 04/17/23 14:00 BMI result Body Mass Index 35.0 Tobacco/Smoking Status: Tobacco use Status Tobacco use date assessed 02/01/23 04/17/23 13:59 Patient Tobacco Use Status Former Tobacco user 04/17/23 13:59 Tobacco use type Cigarette 04/17/23 13:59 e-Cigarette/Vaping Use Never Used 04/17/23 13:59 Thrive Assessment: Date of Thrive Assessment Date Thrive assessed 05/19/21 04/17/23 13:59 Results AMB Hemoglobin A1c AMB Hemoglobin A1c 8.2 % Last Edit by Kamryn Armenta CMA on 04/17/23 14:41 Assessment and Plan Assessment & Plan (1) Type 2 diabetes mellitus with diabetic chronic kidney disease: Code(s): E11.22 - Type 2 diabetes mellitus with diabetic chronic kidney disease Qualifiers: Diabetes mellitus termite treater helper insulin use: with jail use Plan: A1c worsened at a 8.2%. Goal is less than 7.0% Increase Lantus to 33 units daily and continue NovoLog with meals Will get her back in a month. Will likely need further adjustments. She had been doing better on a [employer] system. Referring her to the nurse navigator for additional diabetic teaching and to look in to further use of Jazmine continuous use monitoring Also has appointment with Nephrology a week from Monday (2) Essential hypertension: Code(s): I10 - Essential (primary) hypertension Plan: Fairly well controlled. Continue current medication (3) CHF (congestive heart failure): Code(s): I50.9 - Heart failure, unspecified Plan: Lungs are clear She is on carvedilol and bumetanide Continue current medication regimen Follow-up with Cardiology as recommended (4) Swelling of left foot: Code(s): M79.89 - Other specified soft tissue disorders Plan: Lower extremity swelling on the left which does not improve when foot is elevated or she is sleeping Checking D-dimer to rule out DVT Elevate leg Orders: Orders AMB Hemoglobin A1c Today Z13.9 - Encounter for screening, unspecified US venous duplex LE LT Today M79.89 - Other specified soft tissue disorders Referrals Nurse Navigator Referral E11.42 - Type 2 diabetes mellitus with diabetic polyneuropathy Medications: Changed From insulin aspart U-100 (Novolog FlexPen U-100 Insulin aspart) with dinner 8 units (0.08 mL) subcut DAILY 15 mL 1RF E11.42 - Type 2 diabetes mellitus with diabetic polyneuropathy To insulin aspart U-100 (Novolog FlexPen U-100 Insulin aspart) 4, 8 or 14 Units as directed, with meals 8 units (0.08 mL) subcut DAILY 15 mL 1RF 30 days E11.42 - Type 2 diabetes mellitus with diabetic polyneuropathy From insulin glargine (Lantus Solostar U-100 Insulin) 30 units (0.3 mL) subcut QAM 30 days 9 mL 6RF E11.42 - Type 2 diabetes mellitus with diabetic polyneuropathy To insulin glargine (Lantus Solostar U-100 Insulin) 33 units (0.33 mL) subcut QAM 12 mL 6RF 30 days E11.42 - Type 2 diabetes mellitus with diabetic polyneuropathy Coding Level of Care Code Est Pt Level 4 (13546) Diagnoses Type 2 diabetes mellitus with diabetic chronic kidney disease E11.22 Diabetes mellitus jail insulin use: with jail use Essential hypertension I10 CHF (congestive heart failure) I50.9 Swelling of left foot M79.89
[2023-04-17 14:00] VITALS: BP 138/72; PULSE 80; O2SAT 100; BMI 35.0
== END 2023-04-17 14:56 | disposition home or self-care (01) ==
PROVIDERS: Visit Provider Family Medicine
DX: E11.22 Type 2 diabetes mellitus with diabetic chronic kidney disease (principal); I13.0 Hypertensive heart and chronic kidney disease with heart failure and stage 1 through stage 4 chronic kidney disease, or unspecified chronic kidney disease; I50.9 Heart failure, unspecified; N18.4 Chronic kidney disease, stage 4 (severe); M79.89 Other specified soft tissue disorders
CPT/HCPCS: 83036; 99214

== ENCOUNTER 2023-04-18 13:44 | Outpatient (REF) | payer OTHER, SELFPAY ==
--- NOTE | ~2023-04-18 | US_ITS ---
EXAMINATION: US VENOUS ULTRASOUND WITH DOPPLER LOWER EXTREMITY, LEFT CLINICAL INFORMATION: Swelling of the left foot COMPARISON: None available. TECHNIQUE: Ultrasound of the deep veins is performed from the hip to the calf with compression sonography and color and pulse Doppler assessment. Spectral analysis with color-flow imaging is performed. FINDINGS: There is normal venous compression and respiratory variation and augmented flow. The visualized common femoral vein, superficial femoral vein, profunda femoral vein, popliteal vein, and the trifurcation region shows no evidence of deep venous thrombosis. There is no significant popliteal fossa cyst. If the patient's symptoms persist, followup ultrasound in 5 days 7 days might be of value to exclude proximal propagation from a non-visualized calf vein. US/US venous duplex LE IMPRESSION: No DVT demonstrated in the left lower extremity.
== END 2023-04-18 13:45 | disposition home or self-care (01) ==
LOC: HO.US 13:44
PROVIDERS: PCP Family Medicine; Visit Provider Family Medicine
DX: R60.0 Localized edema (principal)
CPT/HCPCS: 93971

== ENCOUNTER 2023-04-19 10:37 | Outpatient (AMB) | payer OTHER, SELFPAY ==
--- NOTE | 2023-04-19 10:46 | A.OFFVIS_ITS ---
Intake Vital Signs 04/19/23 11:01 BP 112/60 Blood Pressure Location Lt brachial Position Sitting Pulse 80 Pulse Source Pulse Oximeter Pulse Oximetry (%) 100 Oxygen Delivery Method Room Air Intake Visit Reasons: 4m f/u Obstructive sleep apnea-Confirmed Intake Note: F/U for JOHN, asking for new supplies for cpap Major Sales Associate Required: No Allergies baclofen Allergy (Severe, Verified 04/19/23 10:48) can't move sulfacetamide Allergy (Severe, Verified 04/19/23 10:48) tongue swelling sulfur Allergy (Severe, Verified 04/19/23 10:48) tongue swelling HPI HPI Comments History of Present Illness Details 62 y/o female patient presents for follow up of JOHN on CPAP. She states that she restarted using CPAP with new mask. New mask does not leak and she sleeps better with new mask. She using CPAP on an off, keep forgetting using it. The CPAP compliance and therapy response (01/18/23-04/17/23) reviewed with the patient. The usage days 36 days, the average usage hours 6 hrs 30 min. She is on CPAP at [id number], the AHI was 8.6/hr. Pt continues to endorse frequent arousals, and non refreshing sleep. She takes a nap 2-3 hours daily. Pt states that she is not physically active, mostly stays in bed during the day time. [facility] Medical History Chronic kidney disease, stage 4 (severe) Chronic pain syndrome Chronic, continuous use of opioids CVA (cerebral vascular accident) Essential hypertension Hyperlipidemia LDL goal <70 Myocardial infarction Obesity due to excess calories Sleep apnea Spinal stenosis, lumbar region with neurogenic claudication Type 2 diabetes mellitus with diabetic polyneuropathy Surgical History History of abdominoplasty History of rotator cuff surgery Hx of toe surgery Status post breast reduction Family History Father No problems noted. Mother Diabetes Hypertension Sister No problems noted. Sister No problems noted. Son No problems noted. Social History Household Members: Friend(s) Household Members Other:: roomate Housing: Apartment Alcohol intake: never Patient Tobacco Use Status: Former Tobacco user Quit Date: 2019 Tobacco use type: Cigarette Cigarette Packs Per Day: 0.5 e-Cigarette/Vaping Use: Never Used Second Hand Smoke Exposure: No Advance Directives Date on File: 07/07/20 service: No Current occupational status: disabled Current occupational exposures/hazards: No Cognitive needs: No Hearing needs: No Vision needs: No Review of Systems Const All systems reviewed & are unremarkable except as noted in HPI and below ENT Reports Normal hearing present Neuro Reports Normal hearing present Physical Exam Vital Signs: Last Vital Signs Pulse 80 04/19/23 11:01 BP 112/60 04/19/23 11:01 Pulse Ox 100 04/19/23 11:01 Oxygen Delivery Method Room Air 04/19/23 11:01 Const General: cooperative Nutritional Appearance: obese Orientation/consciousness: patient oriented x3 HEENT Throat: Yes other (mallampati grade 4) Neck Neck: Yes full ROM and Yes supple Resp Effort & Inspection: normal respiratory effort and able to speak in complete sentences Neuro General: patient oriented x3 and moves all extremities Cranial nerves: Yes Bilaterally intact EOM present, Yes Normal facial strength present, Yes Midline tongue present, Yes Symmetric palate elevation present, Yes Normal hearing present, Yes Ability to bilaterally rotate head present and Yes Ability to bilaterally elevate shoulders present Cognition (Neuro): normal cognition Gait exam (Neuro): Assisted gait required Gait assisted method: walker Psych Appearance: grossly normal Speech and movement: Slowed movement present (Neuro) Affect: normal affect Attitude: cooperative Assessment & Plan Assessment & Plan (1) Daytime sleepiness: Code(s): R40.0 - Somnolence (2) Obstructive sleep apnea: Comment: (Oct 2017): AHI 14/hr, REM AHI 31/hr, O2 nelida 81%, PLMS 7.4/hr, PLMS arousal index 1.8/hr. Code(s): G47.33 - Obstructive sleep apnea (adult) (pediatric) Plan CPAP pressure changed to [id number]. Stressed compliance, use CPAP every night and more than 4 hours. Advised patient to increase physical activity during daytime. Sleep hygiene education provided. Advised patient to have routine sleep schedule, avoid taking nap. Coding Level of Care Code Est Pt Level 3 (92584) Diagnoses Daytime sleepiness R40.0 Obstructive sleep apnea G47.33
[2023-04-19 11:01] VITALS: BP 112/60; PULSE 80; O2SAT 100
== END 2023-04-19 11:19 | disposition home or self-care (01) ==
PROVIDERS: Visit Provider Nurse Practitioner Family
DX: R40.0 Somnolence (principal); G47.33 Obstructive sleep apnea (adult) (pediatric)
CPT/HCPCS: 99213

== ENCOUNTER → 2023-04-19 10:37 | Outpatient (BNVA) | payer OTHER, SELFPAY | PROVIDERS: Visit Provider Nurse Practitioner Family | DX: G47.33 Obstructive sleep apnea (adult) (pediatric) (principal); R40.0 Somnolence | CPT/HCPCS: 99212 ==

== ENCOUNTER 2023-06-16 14:28 | Outpatient (REF) | payer OTHER, SELFPAY ==
--- NOTE | ~2023-06-16 | MM_ITS ---
EXAMINATION: MM SCREENING DIGITAL BREAST TOMOSYNTHESIS, BILATERAL CLINICAL INFORMATION: Screening. Asymptomatic. The patient has a history of prior bilateral breast reduction. COMPARISON: Mammography: No prior imaging is available for comparison despite attempts to obtain. TECHNIQUE: Digital breast tomosynthesis is performed in both the craniocaudal and mediolateral oblique views along with computer-aided detection (CAD). Synthesized 2D images are generated from the tomosynthesis. FINDINGS: There are scattered areas of fibroglandular density (ACR BI-RADS breast composition Category b). There are no significant masses, abnormal calcifications, or other abnormalities. Post reduction architectural changes are present in each breast. Bilateral benign coarse calcifications are also present in each breast. These are likely related to breast reduction. MM/MM tomosynthesis screening BI IMPRESSION: No mammographic evidence of malignancy. ASSESSMENT: BI-RADS BI-RADS 2 - Benign Findings RECOMMENDATION: Routine annual mammography screening. 1 year F/U This examination should not preclude the clinical evaluation of a suspicious palpable abnormality. This patient's information was entered into a reminder system with a target due date for their next mammogram.
== END 2023-06-16 14:29 | disposition home or self-care (01) ==
LOC: HO.MAMMO 14:28
PROVIDERS: Visit Provider Family Medicine
DX: Z12.31 Encounter for screening mammogram for malignant neoplasm of breast (principal)
CPT/HCPCS: 77063; 77067

== ENCOUNTER → 2023-06-16 15:00 | Outpatient (BNV) | payer OTHER, SELFPAY | PROVIDERS: Visit Provider Radiology Diagnostic Radiology | DX: Z12.31 Encounter for screening mammogram for malignant neoplasm of breast (principal) | CPT/HCPCS: 77063; 77067 ==

== ENCOUNTER → 2023-06-21 12:28 | Outpatient (REF) | payer OTHER, SELFPAY | LOC: HO.SL 12:28 | PROVIDERS: PCP Family Medicine; Visit Provider Nurse Practitioner Family | DX: G47.33 Obstructive sleep apnea (adult) (pediatric) (principal) | CPT/HCPCS: 95806 ==

== ENCOUNTER → 2023-06-21 13:24 | Outpatient (BNV) | payer OTHER, SELFPAY | PROVIDERS: PCP Family Medicine; Visit Provider Psychiatry & Neurology Neurology | DX: R06.83 Snoring (principal) | CPT/HCPCS: 95806 ==

== ENCOUNTER 2023-06-22 13:43 | Outpatient (AMB) | payer OTHER, SELFPAY ==
--- NOTE | 2023-06-22 13:51 | A.OFFPC_ITS ---
Vital Signs 06/22/23 13:52 Height 5 ft 6 in Weight 220 lb BMI 35.5 BP 128/68 Pulse 82 Pulse Source Pulse Oximeter Pulse Oximetry (%) 100 Oxygen Delivery Method Room Air Intake Visit Reasons: f/u diabetes and chronic conditions Intake Note: Patient is here for follow up on diabetes, and would like an order for bed pads. Patient would like to talk about physical therapy, and pain medication for her legs. She states tylenol does not help. Allergies baclofen Allergy (Severe, Verified 06/22/23 13:58) can't move sulfacetamide Allergy (Severe, Verified 06/22/23 13:58) tongue swelling sulfur Allergy (Severe, Verified 06/22/23 13:58) tongue swelling Medication List - Last Reconciled 06/22/23 by Tommie Suarez MD acetaminophen 650 mg (2 x 325 mg) PO Q8H PRN albuterol sulfate 90 mcg/actuation (Ventolin HFA) 2 puffs PO QID PRN aspirin 81 mg PO DAILY atorvastatin 40 mg PO DAILY blood sugar diagnostic (FreeStyle Lite Strips) USE DIRECTED TO TEST BLOOD SUGAR THREE TIMES DAILY blood-glucose meter (FreeStyle [place] Lite kit) As directed 3x/day bumetanide 2 mg (2 x 1 mg) PO DAILY 30 days bumetanide 2 mg PO BID bupropion HCl 150 mg PO QAM calcitriol 0.25 mcg PO DAILY cariprazine (Vraylar) 1.5 mg PO DAILY cariprazine (Vraylar) 1.5 mg PO DAILY 30 days carvedilol 6.25 mg PO BID clopidogrel 75 mg PO DAILY 90 days docusate sodium (Colace) 100 mg PO TID PRN 30 days dulaglutide (Trulicity) 4.5 mg (0.5 mL) subcut QWEEK dulaglutide (Trulicity) 4.5 mg subcut QWEEK epoetin sally (Procrit) 2,000 units IV 3XW ergocalciferol (vitamin D2) 1,250 mcg PO QWEEK famotidine 40 mg PO DAILY 90 days gabapentin 100 mg PO BID hydralazine 50 mg PO TID 30 days hydralazine 25 mg PO BID insulin aspart U-100 (Novolog FlexPen U-100 Insulin aspart) 8 units (0.08 mL) subcut DAILY 30 days insulin glargine (Lantus Solostar U-100 Insulin) 33 units (0.33 mL) subcut QAM 30 days isosorbide mononitrate ER 30 mg PO DAILY magnesium hydroxide (Dulcolax (magnesium hydroxide)) 5 mL PO DAILY PRN 30 days miscellaneous medical supply Disposable Absorbent Pads DX: Urinary incontinence As directed, 2 per night, duration 999 days, 30 day supply montelukast 10 mg PO DAILY pantoprazole 20 mg PO DAILY 90 days pen needle, diabetic As directed 4 times a day, 90 day supply venlafaxine ER 225 mg PO DAILY Tobacco use date assessed: 06/22/23 HPI f/u diabetes and chronic conditions HPI Details 62 y/o female presents to f/u diabetes a nd chronic conditions. Last A1c 04/17/23 was 8.2%. She reports morning blood sugars have been in the 200s. She reports R leg pain which started this month. [facility] Medical History Chronic kidney disease, stage 4 (severe) Chronic pain syndrome Chronic, continuous use of opioids CVA (cerebral vascular accident) Essential hypertension Hyperlipidemia LDL goal <70 Myocardial infarction Obesity due to excess calories Sleep apnea Spinal stenosis, lumbar region with neurogenic claudication Type 2 diabetes mellitus with diabetic polyneuropathy Surgical History History of abdominoplasty History of rotator cuff surgery Hx of toe surgery Status post breast reduction Family History Father No problems noted. Mother Diabetes Hypertension Sister No problems noted. Sister No problems noted. Son No problems noted. Social History Household Members: Friend(s) Household Members Other:: roomate Housing: Apartment Alcohol intake: never Patient Tobacco Use Status: Former Tobacco user Quit Date: 2019 Tobacco use type: Cigarette Cigarette Packs Per Day: 0.5 e-Cigarette/Vaping Use: Never Used Second Hand Smoke Exposure: No Advance Directives Date on File: 07/07/20 service: No Current occupational status: disabled Current occupational exposures/hazards: No Cognitive needs: No Hearing needs: No Vision needs: No Questionnaire Thrive Questionnaire Date Thrive assessed: 05/19/21 BRITT-7 AMB Questionnaire BRITT-7 Date BRITT - 7 assessed: 05/19/21 Source: Developed by Drs. Andre Hilario, Kasey Patel, Jose Rausch and colleagues, with an educational micha from [employer]. Review of Systems Const Denies chills, Denies fatigue, Denies fever(s), Denies headache(s) and Denies weakness ENT Denies dizziness and Denies headache(s) Card Denies dyspnea Resp Denies cough, Denies dyspnea, Denies wheezing and Denies other (shortness of breath) Musc Details: R leg pain Denies numbness and Denies tingling Neuro Denies dizziness, Denies headache(s), Denies numbness, Denies tingling and Denies weakness Psych Denies anxiety and Denies depression Endo Denies fatigue Aller/Immun Denies wheezing Physical exam (Primary Care) Vital Signs: Last Vital Signs Pulse 82 06/22/23 13:52 BP 128/68 06/22/23 13:52 Pulse Ox 100 06/22/23 13:52 Oxygen Delivery Method Room Air 06/22/23 13:52 BMI result Body Mass Index 35.5 Tobacco/Smoking Status: Tobacco use Status Tobacco use date assessed 06/22/23 06/22/23 13:59 Patient Tobacco Use Status Former Tobacco user 06/22/23 13:59 Tobacco use type Cigarette 06/22/23 13:59 e-Cigarette/Vaping Use Never Used 06/22/23 13:59 Thrive Assessment: Date of Thrive Assessment Date Thrive assessed 05/19/21 06/22/23 13:59 Const General: well developed; No acute distress Nutritional Appearance: well nourished Orientation/consciousness: patient oriented x3 HENMT Head: Yes normocephalic and Yes atraumatic Eyes General: appearance normal, both eyes and all related structures Pupils: Equal, round and reactive pupils present EOM: EOMs intact bilaterally Resp Effort & Inspection: normal respiratory effort Neuro General: patient oriented x3 and gait normal Cranial nerves: Yes Equal, round and reactive pupils present Psych Affect: normal affect Assessment and Plan Assessment & Plan (1) Type 2 diabetes mellitus with diabetic chronic kidney disease: Code(s): E11.22 - Type 2 diabetes mellitus with diabetic chronic kidney disease Qualifiers: Diabetes mellitus intermediate card tender insulin use: with fci use Plan: A1c had been high at last check in I increased her Lantus to 33 units q.h.s. She notes that her morning blood sugars are still between 200 and to 10 Will increase Lantus from 33 units q.h.s. to 36 units q.h.s. and continue her other medications as prescribed. (2) Leg pain: Code(s): M79.606 - Pain in leg, unspecified Plan: Patient has posterior right knee and thigh pain. Had previously had posterior left knee pain and ultrasound showed no DVT. Location of pain is directly at posterior hamstring muscles and not over femoral veins No cords palpated No calf swelling Doubt DVT. This appears to be a muscle strain. Ordered D-dimer to out thromboembolic cause. If positive, patient agrees she will need an ultrasound. She can also use diclofenac gel for leg pain and start physical therapy. Orders: Orders PT Evaluation and Treatment Today M79.606 - Pain in leg, unspecified Medications: New diclofenac sodium 1% apply to single elbow, wrist or hand; for hand includes palm/fingers/back of hand 4 grams topical TID PRN 100 grams 2RF pain 30 days Refilled blood sugar diagnostic (FreeStyle Lite Strips) USE DIRECTED TO TEST BLOOD SUGAR THREE TIMES DAILY 300 ea 10RF E11.65 - Type 2 diabetes mellitus with hyperglycemia, Z79.4 - long-term (current) use of insulin Coding Level of Care Code Est Pt Level 3 (13017) Diagnoses Type 2 diabetes mellitus with diabetic chronic kidney disease E11.22 Diabetes mellitus intermediate card tender insulin use: with intermediate card tender use Leg pain M79.606
[2023-06-22 13:52] VITALS: BP 128/68; PULSE 82; O2SAT 100; BMI 35.5
== END 2023-06-22 14:56 | disposition home or self-care (01) ==
PROVIDERS: PCP Family Medicine; Visit Provider Family Medicine
DX: E11.22 Type 2 diabetes mellitus with diabetic chronic kidney disease (principal); M79.606 Pain in leg, unspecified; N18.4 Chronic kidney disease, stage 4 (severe)
CPT/HCPCS: 99213

== ENCOUNTER 2023-07-06 10:18 | Outpatient (REF) | payer OTHER, SELFPAY | END 2023-07-06 10:19 | disposition home or self-care (01) | LOC: HO.WFDLDS 10:18 | PROVIDERS: Visit Provider Family Medicine | DX: Z00.00 Encounter for general adult medical examination without abnormal findings (principal); I50.9 Heart failure, unspecified | CPT/HCPCS: 36415; 80053; 83880; 85025 ==

== ENCOUNTER 2023-10-12 14:31 | Outpatient (AMB) | payer OTHER, SELFPAY ==
[2023-10-12 14:43] VITALS: BP 142/80; PULSE 91; O2SAT 98; BMI 36.2
--- NOTE | 2023-10-12 14:43 | HO.NEPHOV_ITS ---
HPI HPI Comments History of Present Illness Details I had the delight of seeing Ms. Cutler in the office in follow-up of her chronic kidney disease, hypertension and anemia. She denies any headache, visual disturbance, nausea, vomiting, diarrhea, chest pain, shortness of breath, worsening pedal edema or urinary symptoms. She denies any uremic symptoms. She claims to have her blood sugars better but was unsure about her readings lately. She had been getting Procrit in the past. She denies taking any hron-oof-ydjploa medications. She is on lipid-lowering agents. Her blood pressure control has not been optimal. She finds it difficult to lie flat in the bed due to breathing issues. She has not had any recent blood work. [facility] Medical History Chronic kidney disease, stage 4 (severe) Chronic pain syndrome Chronic, continuous use of opioids CVA (cerebral vascular accident) Essential hypertension Hyperlipidemia LDL goal <70 Myocardial infarction Obesity due to excess calories Sleep apnea Spinal stenosis, lumbar region with neurogenic claudication Type 2 diabetes mellitus with diabetic polyneuropathy Surgical History History of rotator cuff surgery History of abdominoplasty Status post breast reduction Hx of toe surgery Family History Father No problems noted. Mother Diabetes Hypertension Sister No problems noted. Sister No problems noted. Son No problems noted. Social History Household Members: Friend(s) Household Members Other:: roomate Housing: Apartment Alcohol intake: never Patient Tobacco Use Status: Former Tobacco user Quit Date: 2019 Tobacco use type: Cigarette Cigarette Packs Per Day: 0.5 e-Cigarette/Vaping Use: Never Used Second Hand Smoke Exposure: No Advance Directives Date on File: 07/07/20 service: No Current occupational status: disabled Current occupational exposures/hazards: No Cognitive needs: No Hearing needs: No Vision needs: No Vital Signs 10/12/23 14:43 Height 5 ft 6 in Weight 224 lb BMI 36.2 BP 142/80 H Blood Pressure Location Lt brachial Position Sitting Pulse 91 Pulse Source Pulse Oximeter Pulse Oximetry (%) 98 Oxygen Delivery Method Room Air Physical Exam Vital Signs: Last Vital Signs Pulse 91 10/12/23 14:43 BP 142/80 H 10/12/23 14:43 Pulse Ox 98 10/12/23 14:43 Oxygen Delivery Method Room Air 10/12/23 14:43 BMI result Body Mass Index 36.2 Const General: comfortable and no acute distress Orientation/consciousness: patient oriented x3 HEENT Head: Yes normocephalic Mouth: Normal oral and palatal mucosa present Eyes EOM: EOMs intact bilaterally Neck Neck: Yes supple Resp Auscultation: diminished lung sounds Cardio Jugular venous distension: no JVD Rate: regular rate GI Palpation (GI): Soft to palpation Auscultation: normal bowel sounds General: Yes no CVA tenderness Back/Spine/Pelvis Back: no CVA tenderness Skin General skin exam: no rashes or lesions noted Neuro General: patient oriented x3 and moves all extremities Extrem General: Yes no pedal edema Assessment & Plan Assessment & Plan (1) Chronic kidney disease, stage 4 (severe): Code(s): N18.4 - Chronic kidney disease, stage 4 (severe) (2) Type 2 diabetes mellitus with diabetic chronic kidney disease: Code(s): E11.22 - Type 2 diabetes mellitus with diabetic chronic kidney disease Qualifiers: Diabetes mellitus supervisor intermediates insulin use: with supervisor intermediates use Chronic kidney disease stage: stage 4 (severe) Qualified Code(s): E11.22 - Type 2 diabetes mellitus with diabetic chronic kidney disease; N18.4 - Chronic kidney disease, stage 4 (severe); 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 She had not been tolerating ALEJO-inhibitor but is on hydralazine and Imdur. Her previous renal ultrasound had shown thinning of renal cortex. She had extensive workup done which did not show any other etiology for her CKD. I increased her Imdur to 60 mg daily. She should continue on her current dose of diuretics. She should cut back sodium in the diet. She had iron deficiency and had received Venofer in the past. She also had been on Procrit. She has history of secondary hyperparathyroidism of renal origin. She had been on vitamin-D and calcitriol. I ordered all the follow-up blood work and shall arrange intravenous iron and or Procrit based on the lab data. If her GFR permits she will be a great candidate for his SGLT 2 inhibitor. Answered all questions. Follow-up given. Orders: Orders Calcium 10/12/23 N18.4 - Chronic kidney disease, stage 4 (severe) Phosphorus 10/12/23 N18.4 - Chronic kidney disease, stage 4 (severe) Complete Blood Count Auto Diff 10/12/23 N18.4 - Chronic kidney disease, stage 4 (severe) IRON PROFILE 10/12/23 N18.4 - Chronic kidney disease, stage 4 (severe) Ferritin 10/12/23 N18.4 - Chronic kidney disease, stage 4 (severe) Creatinine 10/12/23 N18.4 - Chronic kidney disease, stage 4 (severe) Blood Urea Nitrogen 10/12/23 N18.4 - Chronic kidney disease, stage 4 (severe) Electrolytes 10/12/23 N18.4 - Chronic kidney disease, stage 4 (severe) Parathyroid Hormone Intact 10/12/23 N18.4 - Chronic kidney disease, stage 4 (severe) Medications: Changed From isosorbide mononitrate ER 30 mg PO DAILY To isosorbide mononitrate ER 60 mg (2 x 30 mg) PO DAILY 60 tabs 3RF Coding Level of Care Code Est Pt Level 4 (41502) Diagnoses Chronic kidney disease, stage 4 (severe) N18.4 Type 2 diabetes mellitus with stage 4 chronic kidney disease, with long-term current use of insulin E11.22; N18.4; Z79.4 Diabetes mellitus supervisor intermediates insulin use: with mcfp use Chronic kidney disease stage: stage 4 (severe) Essential hypertension I10 Anemia in stage 4 chronic kidney disease N18.4; D63.1 Chronic kidney disease stage: stage 4 (severe) Secondary hyperparathyroidism (of renal origin) N25.81 Results Reviewed Nephrology Results: Hgb 10.2 g/dl (12.0-16.0) L 07/06/23 WBC 6.8 X10*3/uL (4.8-10.8) 07/06/23 Plt Count 371 X10*3/uL (160-400) 07/06/23 Sodium 135 mmol/L (135-145) 07/06/23 Potassium 3.6 mmol/L (3.3-5.1) 07/06/23 Chloride 98 mmol/L (96-108) 07/06/23 Carbon Dioxide 23 mmol/L (22-29) 07/06/23 BUN 29 mg/dL (9-16) H 07/06/23 Creatinine 2.55 mg/dL (0.5-1.4) H 07/06/23 Calcium 8.9 mg/dL (8.4-10.2) 07/06/23
== END 2023-10-12 15:20 | disposition home or self-care (01) ==
PROVIDERS: PCP Family Medicine; Visit Provider Internal Medicine Nephrology
DX: I12.9 Hypertensive chronic kidney disease with stage 1 through stage 4 chronic kidney disease, or unspecified chronic kidney disease (principal); N18.4 Chronic kidney disease, stage 4 (severe); E11.22 Type 2 diabetes mellitus with diabetic chronic kidney disease; Z79.4 Long term (current) use of insulin; D63.1 Anemia in chronic kidney disease; N25.81 Secondary hyperparathyroidism of renal origin
CPT/HCPCS: 99214

== ENCOUNTER → 2023-10-12 14:31 | Outpatient (BNVA) | payer OTHER, SELFPAY | PROVIDERS: PCP Family Medicine; Visit Provider Internal Medicine Nephrology | DX: E11.22 Type 2 diabetes mellitus with diabetic chronic kidney disease (principal); I12.9 Hypertensive chronic kidney disease with stage 1 through stage 4 chronic kidney disease, or unspecified chronic kidney disease; N18.4 Chronic kidney disease, stage 4 (severe); D63.1 Anemia in chronic kidney disease; Z79.4 Long term (current) use of insulin; N25.81 Secondary hyperparathyroidism of renal origin | CPT/HCPCS: 99212 ==

== ENCOUNTER 2023-10-27 11:16 | Outpatient (AMB) | payer OTHER, SELFPAY ==
--- NOTE | 2023-10-27 11:26 | MHC.PC.OV ---
Vital Signs 10/27/23 11:27 Height 5 ft 6 in BMI Reason not done Patient refused/unable BP 165/75 H Pulse 72 Pulse Source Pulse Oximeter Pulse Oximetry (%) 96 Oxygen Delivery Method Room Air Intake Visit Reasons: f/u diabetes and chronic conditions Intake Note: Patient is here to follow up on diabetes and is complaining of fluid build up today. Allergies baclofen Allergy (Severe, Verified 10/27/23 11:28) can't move sulfacetamide Allergy (Severe, Verified 10/27/23 11:28) tongue swelling sulfur Allergy (Severe, Verified 10/27/23 11:28) tongue swelling Tobacco use date assessed: 06/22/23 HPI f/u diabetes and chronic conditions HPI Details Patient?presents?to?follow-up?diabetes?and?hypertension. She?notes?that?she?is?having?chest?congestion?and?some?orthopnea.??She?notes?increased?weight?and?increase?fluid?in?her?feet?and?ankles. 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 A1c?today?8.0 Taking?Lantus?and?NovoLog?as?prescribed She?also?notes?bright?red?blood?per?rectum?on?[facility] Medical History Chronic kidney disease, stage 4 (severe) Chronic pain syndrome Chronic, continuous use of opioids CVA (cerebral vascular accident) Essential hypertension Hyperlipidemia LDL goal <70 Myocardial infarction Obesity due to excess calories Sleep apnea Spinal stenosis, lumbar region with neurogenic claudication Type 2 diabetes mellitus with diabetic polyneuropathy Surgical History History of rotator cuff surgery History of abdominoplasty Status post breast reduction Hx of toe surgery Family History Father No problems noted. Mother Diabetes Hypertension Sister No problems noted. Sister No problems noted. Son No problems noted. Social History Household Members: Friend(s) Household Members Other:: roomate Housing: Apartment Alcohol intake: never Patient Tobacco Use Status: Former Tobacco user Quit Date: 2019 Tobacco use type: Cigarette Cigarette Packs Per Day: 0.5 e-Cigarette/Vaping Use: Never Used Second Hand Smoke Exposure: No Advance Directives Date on File: 07/07/20 service: No Current occupational status: disabled Current occupational exposures/hazards: No Cognitive needs: No Hearing needs: No Vision needs: No Questionnaire Thrive Questionnaire Date Thrive assessed: 05/19/21 BRITT-7 AMB Questionnaire BRITT-7 Date BRITT - 7 assessed: 05/19/21 Source: Developed by Drs. Andre Hilario, Kasey Patel, Jose Rausch and colleagues, with an educational micha from [employer]. Review of Systems Const Denies chills, Denies fatigue, Denies fever(s), Denies headache(s) and Denies weakness ENT Denies dizziness and Denies headache(s) Card Denies chest pain, Denies lightheadedness, Denies dyspnea and Denies other (Palpitations) Resp Details: Chest?congestion,?orthopnea Denies cough, Denies dyspnea, Denies wheezing and Denies other ( shortness of breath) GI Details: Bright?red?blood?per?rectum?on?TTP Musc Denies numbness and Denies tingling Neuro Denies dizziness, Denies headache(s), Denies numbness, Denies tingling, Denies paresthesias and Denies weakness Psych Denies anxiety and Denies depression Endo Denies fatigue Maximino/Lymph Details: Lower?extremity?edema Aller/Immun Denies wheezing Physical exam (Primary Care) Vital Signs: Last Vital Signs Pulse 72 10/27/23 11:27 BP 165/75 H 10/27/23 11:27 Pulse Ox 96 10/27/23 11:27 Oxygen Delivery Method Room Air 10/27/23 11:27 Tobacco/Smoking Status: Tobacco use Status Tobacco use date assessed 06/22/23 10/27/23 11:29 Patient Tobacco Use Status Former Tobacco user 10/27/23 11:29 Tobacco use type Cigarette 10/27/23 11:29 e-Cigarette/Vaping Use Never Used 10/27/23 11:29 Thrive Assessment: Date of Thrive Assessment Date Thrive assessed 05/19/21 10/27/23 11:29 Assessment and Plan Assessment & Plan (1) Type 2 diabetes mellitus with diabetic polyneuropathy: Code(s): E11.42 - Type 2 diabetes mellitus with diabetic polyneuropathy Plan: A1c?8.0?and?goal?is?less?than?7.0% Increase?Lantus?to?40?units?daily?and?continue?NovoLog Patient?has?had?difficulty?getting?her?blood?sugars?under?control.??Will?refer?to?endocrinology (2) Anemia: Code(s): D64.9 - Anemia, unspecified Plan: History?of?anemia?and?she?has?rectal?bleeding. 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.??Referred?to?Cardiology?at[place] [place] (5) Edema: Code(s): R60.9 - Edema, unspecified Plan: As?above (6) Rectal bleeding: Code(s): K62.5 - Hemorrhage of anus and rectum Plan: Keep?stools?soft Referred?to?GI Check?CBC Orders: Orders XR chest 2V Today I50.9 - Heart failure, unspecified AMB Hemoglobin A1c Today Z13.9 - Encounter for screening, unspecified Complete Blood Count Auto Diff Today D64.9 - Anemia, unspecified, Z00.00 - Encounter for general adult medical examination without abnormal findings B Type Natriuretic Peptide Today I50.9 - Heart failure, unspecified Comprehensive Met. Panel Today I50.9 - Heart failure, unspecified Referrals Cardiology Referral I50.9 - Heart failure, unspecified Gastroenterology Referral K62.5 - Hemorrhage of anus and rectum Endocrinology Referral E11.22 - Type 2 diabetes mellitus with diabetic chronic kidney disease, N18.4 - Chronic kidney disease, stage 4 (severe), Z79.4 - [facility] (current) use of insulin Medications: New polyethylene glycol 3350 (Miralax) 17 grams PO DAILY 14 days 14 ea 0RF Changed From insulin glargine (Lantus Solostar U-100 Insulin) 33 units (0.33 mL) subcut QAM 30 days 12 mL 6RF E11. - Type 2 diabetes mellitus with diabetic polyneuropathy To insulin glargine (Lantus Solostar U-100 Insulin) 40 units (0.4 mL) subcut QAM 12 mL 6RF 30 days E11. - Type 2 diabetes mellitus with diabetic polyneuropathy Refilled bumetanide 2 mg PO BID 60 tabs 3RF E11. - Type 2 diabetes mellitus with diabetic chronic kidney disease, I50.9 - Heart failure, unspecified Coding Level of Care Code Est Pt Level 4 (21808) Diagnoses Type 2 diabetes mellitus with diabetic polyneuropathy E11 Anemia D64.9 Acute kidney injury N17.9 CHF (congestive heart failure) I50.9 Edema R60.9 Rectal bleeding K62.5
[2023-10-27 11:27] VITALS: BP 165/75; PULSE 72; O2SAT 96
== END 2023-10-27 12:46 | disposition home or self-care (01) ==
PROVIDERS: PCP Family Medicine; Visit Provider Family Medicine
DX: E11.42 Type 2 diabetes mellitus with diabetic polyneuropathy (principal); D64.9 Anemia, unspecified; N17.9 Acute kidney failure, unspecified; I50.9 Heart failure, unspecified; R60.9 Edema, unspecified; K62.5 Hemorrhage of anus and rectum
CPT/HCPCS: 99214

== ENCOUNTER 2023-10-27 12:30 | Outpatient (REF) | payer OTHER, SELFPAY ==
[2023-10-27 14:25] LABS: MANUAL DIFF FLAG NO
[2023-10-27 14:51] LABS: Basophils Absolute Auto 0.1 X10*3/uL (0.0-0.2); Basophils Percent Auto 0.6 % (0-2); Eosinophils Absolute Auto 0.2 X10*3/uL (0.0-0.4); Eosinophils Percent Auto 1.7 % (0-4); Hematocrit 29.2 % (37.0-47.0); Hemoglobin 9.2 g/dl (12.0-16.0); Imm Gran Abs Auto 0.05 X10*3/uL (0.00-0.03); Imm Gran Pct Auto 0.5 % (0.0-0.4); Lymphocytes Absolute Auto 0.7 X10*3/uL (1.2-4.9); Lymphocytes Percent Auto 6.9 % (20-40); Mean Corpuscular HGB Conc 31.5 g/dl (31.0-35.0); Mean Corpuscular Hemoglobin 27.5 pg (27.0-33.0); Mean Corpuscular Volume 87.2 fL (80.0-98.0); Mean Platelet Volume 12.2 fL (9.4-12.3); Monocytes Absolute Auto 0.8 X10*3/uL (0.1-1.2); Monocytes Percent Auto 7.5 % (2-11); Neutrophils Absolute Auto 8.6 x10*3/uL (2.0-8.3); Neutrophils Percent Auto 82.8 % (45-73); Platelet Count 312 X10*3/uL (160-400); Red Blood Count 3.35 X10*6/uL (4.20-5.50); Red Cell Distribution Width 14.9 % (11.0-16.0); White Blood Count 10.4 X10*3/uL (4.8-10.8)
[2023-10-27 15:10] LABS: B Type Natriuretic Peptide 336 pg/mL (<100)
[2023-10-27 15:13] LABS: Parathyroid Hormone Intact 293.5 pg/mL (8.7-77.1)
[2023-10-27 15:15] LABS: Alanine Aminotransferase 9 U/L (0-31); Albumin Level 3.2 g/dL (3.5-5.0); Alkaline Phosphatase 123 U/L (39-117); Anion Gap 13 (12-20); Aspartate Amino Transferase 9 U/L (5-31); Bilirubin Total 0.6 mg/dL (0.0-1.0); Blood Urea Nitrogen 21 mg/dL (9-16); Calcium 8.7 mg/dL (8.4-10.2); Carbon Dioxide 21 mmol/L (22-29); Chloride 109 mmol/L (96-108); Estimated Glomerular Filt Rate 21; Glucose Random 193 mg/dL (60-115); Iron 21 mcg/dL (30-160); Percent Iron Saturation 11 % (15-50); Phosphorus 2.2 mg/dL (2.7-4.5); Potassium 4.2 mmol/L (3.3-5.1); Sodium 139 mmol/L (135-145); Total Iron Binding Capacity 195 mcg/dL (228-428); Total Protein 6.8 g/dL (6.5-8.0); Unsaturated Iron Binding 174 ug/dL
[2023-10-27 15:32] LABS: Ferritin 40 ng/mL (10-250)
== END 2023-10-27 12:31 | disposition home or self-care (01) ==
LOC: HO.WFDLDS 12:30
PROVIDERS: Internal Medicine Nephrology; Visit Provider Family Medicine
DX: Z00.00 Encounter for general adult medical examination without abnormal findings (principal); N18.4 Chronic kidney disease, stage 4 (severe); I50.9 Heart failure, unspecified; D64.9 Anemia, unspecified
CPT/HCPCS: 36415; 80053; 82728; 83540; 83880; 83970; 84100; 85025

== ENCOUNTER 2023-11-09 13:21 | Outpatient (AMB) | payer OTHER, SELFPAY ==
[2023-11-09 13:36] VITALS: BP 140/72; PULSE 89; O2SAT 97; BMI 35.1
--- NOTE | 2023-11-09 13:36 | HO.NEPHOV_ITS ---
HPI HPI Comments History of Present Illness Details I had the delight of seeing Ms. Cutler in the office in follow-up of her chronic kidney disease, hypertension and anemia. She denies any headache, visual disturbance, nausea, vomiting, diarrhea, chest pain, shortness of breath, worsening pedal edema or urinary symptoms. She denies any uremic symptoms. She claims to have her blood sugars better . She had been getting Procrit in the past. She denies taking any sage-mrh-kwhbbiv medications. She is on lipid- lowering agents. Her blood pressure control has not been optimal. [facility] Medical History Chronic kidney disease, stage 4 (severe) Chronic pain syndrome Chronic, continuous use of opioids CVA (cerebral vascular accident) Essential hypertension Hyperlipidemia LDL goal <70 Myocardial infarction Obesity due to excess calories Sleep apnea Spinal stenosis, lumbar region with neurogenic claudication Type 2 diabetes mellitus with diabetic polyneuropathy Surgical History History of rotator cuff surgery History of abdominoplasty Status post breast reduction Hx of toe surgery Family History Father No problems noted. Mother Diabetes Hypertension Sister No problems noted. Sister No problems noted. Son No problems noted. Social History Household Members: Friend(s) Household Members Other:: roomate Housing: Apartment Alcohol intake: never Patient Tobacco Use Status: Former Tobacco user Quit Date: 2019 Tobacco use type: Cigarette Cigarette Packs Per Day: 0.5 e-Cigarette/Vaping Use: Never Used Second Hand Smoke Exposure: No Advance Directives Date on File: 07/07/20 service: No Current occupational status: disabled Current occupational exposures/hazards: No Cognitive needs: No Hearing needs: No Vision needs: No Vital Signs 11/09/23 13:36 Height 5 ft 6 in Weight 217 lb 6 oz BMI 35.1 BP 140/72 H Blood Pressure Location Lt brachial Position Sitting Pulse 89 Pulse Source Pulse Oximeter Pulse Oximetry (%) 97 Oxygen Delivery Method Room Air Physical Exam Vital Signs: Last Vital Signs Pulse 89 11/09/23 13:36 BP 140/72 H 11/09/23 13:36 Pulse Ox 97 11/09/23 13:36 Oxygen Delivery Method Room Air 11/09/23 13:36 BMI result Body Mass Index 35.1 Const General: comfortable and no acute distress Orientation/consciousness: patient oriented x3 HEENT Head: Yes normocephalic Mouth: Normal oral and palatal mucosa present Eyes EOM: EOMs intact bilaterally Neck Neck: Yes supple Resp Auscultation: clear to auscultation bilaterally Cardio Jugular venous distension: no JVD Rate: regular rate GI Palpation (GI): Soft to palpation Auscultation: normal bowel sounds General: Yes no CVA tenderness Back/Spine/Pelvis Back: no CVA tenderness Skin General skin exam: no rashes or lesions noted Neuro General: patient oriented x3 and moves all extremities Extrem General: Yes no pedal edema Assessment & Plan Assessment & Plan (1) Secondary hyperparathyroidism (of renal origin): Code(s): N25.81 - Secondary hyperparathyroidism of renal origin (2) Anemia in chronic kidney disease: Code(s): N18.9 - Chronic kidney disease, unspecified; D63.1 - Anemia in chronic kidney disease Qualifiers: Chronic kidney disease stage: stage 4 (severe) Qualified Code(s): N18.4 - Chronic kidney disease, stage 4 (severe); D63.1 - Anemia in chronic kidney disease (3) Chronic kidney disease, stage 4 (severe): Code(s): N18.4 - Chronic kidney disease, stage 4 (severe) (4) Essential hypertension: Code(s): I10 - Essential (primary) hypertension Plan 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 She had not been tolerating ALEJO-inhibitor but is on hydralazine and Imdur. Her previous renal ultrasound had shown thinning of renal cortex. She had extensive workup done which did not show any other etiology for her CKD. I increased her Imdur to 90 mg daily. She should continue on her current dose of diuretics. She should cut back sodium in the diet. She had iron deficiency and had received Venofer in the past. She also had been on Procrit. I administered [id number] U of procrit in the office today. She has history of secondary hyperparathyroidism of renal origin. She had been on vitamin-D and calcitriol. I ordered all the follow-up blood work and shall arrange intravenous iron and or Procrit based on the lab data. If her GFR permits she will be a great candidate for his SGLT 2 inhibitor. All questions answered Orders: Orders Calcium Today D63.1 - Anemia in chronic kidney disease, I10 - Essential (primary) hypertension, N18.4 - Chronic kidney disease, stage 4 (severe), N18.9 - Chronic kidney disease, unspecified, N25.81 - Secondary hyperparathyroidism of renal origin Complete Blood Count Auto Diff Today D63.1 - Anemia in chronic kidney disease, I10 - Essential (primary) hypertension, N18.4 - Chronic kidney disease, stage 4 (severe), N18.9 - Chronic kidney disease, unspecified, N25.81 - Secondary hyperparathyroidism of renal origin AMB Epoetin Injection Practice Supplied Today D63.1 - Anemia in chronic kidney disease, N18.9 - Chronic kidney disease, unspecified Electrolytes Today D63.1 - Anemia in chronic kidney disease, I10 - Essential (primary) hypertension, N18.4 - Chronic kidney disease, stage 4 (severe), N18.9 - Chronic kidney disease, unspecified, N25.81 - Secondary hyperparathyroidism of renal origin Blood Urea Nitrogen Today D63.1 - Anemia in chronic kidney disease, I10 - Essential (primary) hypertension, N18.4 - Chronic kidney disease, stage 4 (severe), N18.9 - Chronic kidney disease, unspecified, N25.81 - Secondary hyperparathyroidism of renal origin Creatinine Today D63.1 - Anemia in chronic kidney disease, I10 - Essential (primary) hypertension, N18.4 - Chronic kidney disease, stage 4 (severe), N18.9 - Chronic kidney disease, unspecified, N25.81 - Secondary hyperparathyroidism of renal origin Medications: New epoetin sally 20,000 units (2 mL) subcut ONCE 2 mL 0RF D63.1 - Anemia in chronic kidney disease, N18.9 - Chronic kidney disease, unspecified Changed From isosorbide mononitrate ER 60 mg (2 x 30 mg) PO DAILY 60 tabs 3RF To isosorbide mononitrate ER 90 mg (1.5 x 60 mg) PO DAILY 45 tabs 3RF 30 days Coding Level of Care Code Est Pt Level 4 (69124) Diagnoses Secondary hyperparathyroidism (of renal origin) N25.81 Anemia in stage 4 chronic kidney disease N18.4; D63.1 Chronic kidney disease stage: stage 4 (severe) Chronic kidney disease, stage 4 (severe) N18.4 Essential hypertension I10 Results Reviewed Nephrology Results: Hgb 9.2 g/dl (12.0-16.0) L 10/27/23 WBC 10.4 X10*3/uL (4.8-10.8) 10/27/23 Plt Count 312 X10*3/uL (160-400) 10/27/23 Sodium 139 mmol/L (135-145) 10/27/23 Potassium 4.2 mmol/L (3.3-5.1) 10/27/23 Chloride 109 mmol/L (96-108) H 10/27/23 Carbon Dioxide 21 mmol/L (22-29) L 10/27/23 BUN 21 mg/dL (9-16) H 10/27/23 Creatinine 2.30 mg/dL (0.5-1.4) H 10/27/23 Calcium 8.7 mg/dL (8.4-10.2) 10/27/23 Phosphorus 2.2 mg/dL (2.7-4.5) L 10/27/23 PTH Intact 293.5 pg/mL (8.7-77.1) H 10/27/23
== END 2023-11-09 14:23 | disposition home or self-care (01) ==
PROVIDERS: PCP Family Medicine; Visit Provider Internal Medicine Nephrology
DX: N25.81 Secondary hyperparathyroidism of renal origin (principal); I12.9 Hypertensive chronic kidney disease with stage 1 through stage 4 chronic kidney disease, or unspecified chronic kidney disease; N18.4 Chronic kidney disease, stage 4 (severe); D63.1 Anemia in chronic kidney disease
CPT/HCPCS: 99214

== ENCOUNTER → 2023-11-09 13:21 | Outpatient (BNVA) | payer OTHER, SELFPAY | PROVIDERS: PCP Family Medicine; Visit Provider Internal Medicine Nephrology | DX: N25.81 Secondary hyperparathyroidism of renal origin (principal); I12.9 Hypertensive chronic kidney disease with stage 1 through stage 4 chronic kidney disease, or unspecified chronic kidney disease; N18.4 Chronic kidney disease, stage 4 (severe); D63.1 Anemia in chronic kidney disease | CPT/HCPCS: 96372; 99212; Q5106 ==

== ENCOUNTER 2023-11-10 15:07 | Outpatient (AMB) | payer OTHER, SELFPAY ==
--- NOTE | 2023-11-10 15:08 | MHC.PC.OV ---
Vital Signs 11/10/23 15:09 Height 5 ft 6 in Weight 216 lb BMI 34.9 BP 140/82 H Blood Pressure Location Lt brachial Position Sitting Pulse 81 Pulse Source Pulse Oximeter Pulse Oximetry (%) 97 Oxygen Delivery Method Room Air Intake Visit Reasons: Follow-up?CHF Intake Note: Patient is here for follow up on CHF, she was seen at [facility]. Allergies baclofen Allergy (Severe, Verified 11/10/23 15:13) can't move sulfacetamide Allergy (Severe, Verified 11/10/23 15:13) tongue swelling sulfur Allergy (Severe, Verified 11/10/23 15:13) tongue swelling Medication List - Last Reconciled 11/10/23 by Tommie Suaerz MD acetaminophen 650 mg (2 x 325 mg) PO Q8H PRN albuterol sulfate 90 mcg/actuation (Ventolin HFA) 2 puffs PO QID PRN aspirin 81 mg PO DAILY atorvastatin 40 mg PO DAILY blood sugar diagnostic (OneTouch Verio test strips) Test Blood Sugar 3 times a day As directed, 90 days blood sugar diagnostic (FreeStyle Lite Strips) USE DIRECTED TO TEST BLOOD SUGAR THREE TIMES DAILY blood-glucose meter (FreeStyle Strang Lite kit) As directed 3x/day blood-glucose meter (OneTouch Verio Flex Meter) Test Blood sugar As directed, 999 days bumetanide 2 mg PO BID bumetanide 2 mg PO BID bupropion HCl 150 mg PO QAM calcitriol 0.25 mcg PO DAILY cariprazine (Vraylar) 1.5 mg PO DAILY 30 days carvedilol 6.25 mg PO BID clopidogrel 75 mg PO DAILY 90 days diclofenac sodium 1% 4 grams topical TID PRN 30 days docusate sodium (Colace) 100 mg PO TID PRN 30 days dulaglutide (Trulicity) 4.5 mg (0.5 mL) subcut QWEEK empagliflozin (Jardiance) 10 mg PO DAILY epoetin sally (Procrit) 2,000 units IV 3XW ergocalciferol (vitamin D2) 1,250 mcg PO QWEEK famotidine 40 mg PO DAILY 90 days ferrous sulfate (FeroSul) mg PO fluticasone propion-salmeterol 250-50 mcg/dose (Advair Diskus) 1 ea PO BID 30 days gabapentin 100 mg PO BID hydralazine 50 mg PO TID 30 days insulin aspart U-100 (Novolog FlexPen U-100 Insulin aspart) 8 units (0.08 mL) subcut DAILY 30 days insulin glargine (Lantus Solostar U-100 Insulin) 40 units (0.4 mL) subcut QAM 30 days iron sucrose (Venofer) 100 mg (5 mL) IV QWEEK 5 doses isosorbide mononitrate ER 90 mg (1.5 x 60 mg) PO DAILY 30 days lancets (Velostackuch Delica Plus Lancet) Test bood sugar 3 times a day, As directed, 90 days miscellaneous medical supply Disposable Absorbent Pads DX: Urinary incontinence As directed, 2 per night, duration 999 days, 30 day supply montelukast 10 mg PO DAILY pantoprazole 20 mg PO DAILY 90 days pen needle, diabetic As directed 4 times a day, 90 day supply polyethylene glycol 3350 (Miralax) 17 grams PO DAILY 14 days trazodone 250 mg PO BEDTIME venlafaxine ER 225 mg PO DAILY Tobacco use date assessed: 06/22/23 HPI Follow-up?CHF HPI Details 62 y/o female presents to f/u chronic conditions. Blood pressure today 140/82. She is on hydralazine t.i.d. along with carvedilol 6.25mg b.i.d. Pt admitted to emergency dept. with acute worsening of CHF secondary to medication noncompliance. She continues taking bumetanide as prescribed. A1c 8.0% last check. She notes blood sugars at home have been around 100. She has an appt. with endocrinology next week. [facility] Medical History Sleep apnea Myocardial infarction CVA (cerebral vascular accident) Type 2 diabetes mellitus with diabetic polyneuropathy Chronic kidney disease, stage 4 (severe) Essential hypertension Hyperlipidemia LDL goal <70 Obesity due to excess calories Chronic, continuous use of opioids Chronic pain syndrome Spinal stenosis, lumbar region with neurogenic claudication Surgical History History of rotator cuff surgery History of abdominoplasty Status post breast reduction Hx of toe surgery Family History Father No problems noted. Mother Diabetes Hypertension Sister No problems noted. Sister No problems noted. Son No problems noted. Social History Household Members: Friend(s) Household Members Other:: roomate Housing: Apartment Alcohol intake: never Patient Tobacco Use Status: Former Tobacco user Quit Date: 2019 Tobacco use type: Cigarette Cigarette Packs Per Day: 0.5 e-Cigarette/Vaping Use: Never Used Second Hand Smoke Exposure: No Advance Directives Date on File: 07/07/20 service: No Current occupational status: disabled Current occupational exposures/hazards: No Cognitive needs: No Hearing needs: No Vision needs: No Questionnaire Thrive Questionnaire Date Thrive assessed: 05/19/21 BRITT-7 AMB Questionnaire BRITT-7 Date BRITT - 7 assessed: 05/19/21 Source: Developed by Drs. Andre Hilario, Kasey Patel, Jose Rausch and colleagues, with an educational micha from [employer]. Review of Systems Const Denies chills, Denies fatigue, Denies fever(s), Denies headache(s) and Denies weakness ENT Denies dizziness and Denies headache(s) Card Denies chest pain, Denies lightheadedness, Denies dyspnea and Denies other (Palpitations) Resp Denies cough, Denies dyspnea, Denies wheezing and Denies other ( shortness of breath) Musc Denies numbness and Denies tingling Neuro Denies dizziness, Denies headache(s), Denies numbness, Denies tingling, Denies paresthesias and Denies weakness Psych Denies anxiety and Denies depression Endo Denies fatigue Aller/Immun Denies wheezing Physical exam (Primary Care) Vital Signs: Last Vital Signs Pulse 81 11/10/23 15:09 BP 140/82 H 11/10/23 15:09 Pulse Ox 97 11/10/23 15:09 Oxygen Delivery Method Room Air 11/10/23 15:09 BMI result Body Mass Index 34.9 Tobacco/Smoking Status: Tobacco use Status Tobacco use date assessed 06/22/23 11/10/23 15:19 Patient Tobacco Use Status Former Tobacco user 11/10/23 15:19 Tobacco use type Cigarette 11/10/23 15:19 e-Cigarette/Vaping Use Never Used 11/10/23 15:19 Thrive Assessment: Date of Thrive Assessment Date Thrive assessed 05/19/21 11/10/23 15:19 Const General: no acute distress and well developed Nutritional Appearance: well nourished Orientation/consciousness: patient oriented x3 HENMT Head: Yes normocephalic and Yes atraumatic Eyes General: appearance normal, both eyes and all related structures Pupils: Equal, round and reactive pupils present EOM: EOMs intact bilaterally Resp Effort & Inspection: normal respiratory effort Auscultation: clear to auscultation bilaterally Cardio Rate: regular rate Rhythm: regular rhythm Heart sounds: S1 normal heart sound present, S2 normal heart sound present, no gallops, no murmurs and no rubs Neuro General: patient oriented x3 and gait normal Cranial nerves: Yes Equal, round and reactive pupils present Psych Affect: normal affect Assessment and Plan Assessment & Plan (1) Essential hypertension: Code(s): I10 - Essential (primary) hypertension Plan: Blood?pressure?is?still?too?high. She?is?on?hydralazine?3?times?a?day?and?carvedilol?6.25?mg?b.i.d. Will?continue?hydralazine Increase?carvedilol?to?12.5?mg?a.m.?and?6.25?mg?p.m. She?will?let?me?know?if?she?is?having?any?trouble?with?this?regimen. (2) CHF (congestive heart failure): Code(s): I50.9 - Heart failure, unspecified Plan: Recent?CHF?exacerbation. She?was?hospitalized?and?diuresed. She?is?taking?bumetanide?as?prescribed. Advised?fluid?restriction Advised?watching?salt?and?sodium (3) Type 2 diabetes mellitus with diabetic chronic kidney disease: Code(s): E11.22 - Type 2 diabetes mellitus with diabetic chronic kidney disease Qualifiers: Chronic kidney disease stage: stage 4 (severe) Diabetes mellitus terminal superintendent insulin use: with terminal superintendent use Qualified Code(s): E11.22 - Type 2 diabetes mellitus with diabetic chronic kidney disease; N18.4 - Chronic kidney disease, stage 4 (severe); Z79.4 - long term care administrator (current) use of insulin Plan: A1c?was?8.0?at?last?check Blood?pressure?medications?were?revised?in?the?hospital.??She?is?now?on?Jardiance?as?well She?notes?that?her?blood?sugars?at?home?have?been?around?100 Continue?current?medication?regimen She?has?an?appointment?with?endocrinology?next?week Medications: Changed From carvedilol 6.25 mg PO BID 56 tabs 3RF To carvedilol 12.5 mg (2 tabs) AM and 6.25 mg (1 tab) PM 90 days 56 tabs 3RF Coding Level of Care Code Est Pt Level 4 (22280) Diagnoses Essential hypertension I10 CHF (congestive heart failure) I50.9 Type 2 diabetes mellitus with stage 4 chronic kidney disease, with long-term current use of insulin E11.22; N18.4; Z79.4 Chronic kidney disease stage: stage 4 (severe) Diabetes mellitus detention insulin use: with terminal superintendent use
[2023-11-10 15:09] VITALS: BP 140/82; PULSE 81; O2SAT 97; BMI 34.9
== END 2023-11-10 16:35 | disposition home or self-care (01) ==
PROVIDERS: PCP Family Medicine; Visit Provider Family Medicine
DX: E11.22 Type 2 diabetes mellitus with diabetic chronic kidney disease (principal); N18.4 Chronic kidney disease, stage 4 (severe); I50.9 Heart failure, unspecified; Z79.4 Long term (current) use of insulin; I12.9 Hypertensive chronic kidney disease with stage 1 through stage 4 chronic kidney disease, or unspecified chronic kidney disease
CPT/HCPCS: 99214

== ENCOUNTER 2023-12-21 09:47 | Outpatient (REF) | payer OTHER, SELFPAY ==
[2023-12-21 11:54] LABS: MANUAL DIFF FLAG NO
[2023-12-21 12:02] LABS: Basophils Absolute Auto 0.1 X10*3/uL (0.0-0.2); Basophils Percent Auto 0.7 % (0-2); Eosinophils Absolute Auto 0.3 X10*3/uL (0.0-0.4); Eosinophils Percent Auto 3.7 % (0-4); Hematocrit 31.3 % (37.0-47.0); Hemoglobin 9.5 g/dl (12.0-16.0); Imm Gran Abs Auto 0.02 X10*3/uL (0.00-0.03); Imm Gran Pct Auto 0.3 % (0.0-0.4); Lymphocytes Absolute Auto 1.1 X10*3/uL (1.2-4.9); Mean Corpuscular HGB Conc 30.4 g/dl (31.0-35.0); Mean Corpuscular Hemoglobin 25.9 pg (27.0-33.0); Mean Corpuscular Volume 85.3 fL (80.0-98.0); Mean Platelet Volume 10.9 fL (9.4-12.3); Monocytes Absolute Auto 0.6 X10*3/uL (0.1-1.2); Monocytes Percent Auto 8.4 % (2-11); Neutrophils Percent Auto 70.9 % (45-73); Platelet Count 410 X10*3/uL (160-400); Red Blood Count 3.67 X10*6/uL (4.20-5.50); Red Cell Distribution Width 16.4 % (11.0-16.0)
[2023-12-21 12:29] LABS: Anion Gap 15 (12-20); Blood Urea Nitrogen 25 mg/dL (9-16); Calcium 8.7 mg/dL (8.4-10.2); Carbon Dioxide 25 mmol/L (22-29); Chloride 104 mmol/L (96-108); Estimated Glomerular Filt Rate 20; Potassium 3.1 mmol/L (3.3-5.1); Sodium 141 mmol/L (135-145)
== END 2023-12-21 09:48 | disposition home or self-care (01) ==
LOC: HO.WFDLDS 09:47
PROVIDERS: Referring Provider Family Medicine; Visit Provider Internal Medicine Nephrology
DX: I12.9 Hypertensive chronic kidney disease with stage 1 through stage 4 chronic kidney disease, or unspecified chronic kidney disease (principal); N18.4 Chronic kidney disease, stage 4 (severe); D63.1 Anemia in chronic kidney disease; N25.81 Secondary hyperparathyroidism of renal origin
CPT/HCPCS: 36415; 80051; 82310; 82565; 84520; 85025

== ENCOUNTER 2024-01-02 14:42 | Outpatient (AMB) | payer OTHER, SELFPAY ==
[2024-01-02 14:56] VITALS: BP 130/70; PULSE 86; O2SAT 98; BMI 35.3
--- NOTE | 2024-01-02 14:56 | HO.NEPHOV ---
HPI HPI Comments History of Present Illness Details I had the delight of seeing Ms. Cutler in the office in follow-up of her chronic kidney disease, hypertension and anemia. She denies any headache, visual disturbance, nausea, vomiting, diarrhea, chest pain, shortness of breath, worsening pedal edema or urinary symptoms. She denies any uremic symptoms. She claims to have her blood sugars better . She had been getting Procrit in the past. She denies taking any veau-maj-wusukcf medications. She is on lipid-lowering agents. Her blood pressure is better controlled. She has been having left wrist pain and is due to have X ray tomorrow [facility] Medical History Sleep apnea Myocardial infarction CVA (cerebral vascular accident) Type 2 diabetes mellitus with diabetic polyneuropathy Chronic kidney disease, stage 4 (severe) Essential hypertension Hyperlipidemia LDL goal <70 Obesity due to excess calories Chronic, continuous use of opioids Chronic pain syndrome Spinal stenosis, lumbar region with neurogenic claudication Surgical History History of rotator cuff surgery History of abdominoplasty Status post breast reduction Hx of toe surgery Family History Father No problems noted. Mother Diabetes Hypertension Sister No problems noted. Sister No problems noted. Son No problems noted. Social History Household Members: Friend(s) Household Members Other:: roomate Housing: Apartment Alcohol intake: never Patient Tobacco Use Status: Former Tobacco user Quit Date: 2019 Tobacco use type: Cigarette Cigarette Packs Per Day: 0.5 e-Cigarette/Vaping Use: Never Used Second Hand Smoke Exposure: No Advance Directives Date on File: 07/07/20 service: No Current occupational status: disabled Current occupational exposures/hazards: No Cognitive needs: No Hearing needs: No Vision needs: No Vital Signs 01/02/24 14:56 Height 5 ft 6 in Weight 218 lb 8 oz BMI 35.3 BP 130/70 Blood Pressure Location Lt brachial Position Sitting Pulse 86 Pulse Source Pulse Oximeter Pulse Oximetry (%) 98 Oxygen Delivery Method Room Air Physical Exam Vital Signs: Last Vital Signs Pulse 86 04/02/24 14:56 BP 130/70 04/02/24 14:56 Pulse Ox 98 01/02/24 14:56 Oxygen Delivery Method Room Air 01/02/24 14:56 BMI result Body Mass Index 35.3 Const General: comfortable and no acute distress Orientation/consciousness: patient oriented x3 HEENT Head: Yes normocephalic Mouth: Normal oral and palatal mucosa present Eyes EOM: EOMs intact bilaterally Neck Neck: Yes supple Resp Auscultation: clear to auscultation bilaterally Cardio Jugular venous distension: no JVD Rate: regular rate GI Palpation (GI): Soft to palpation Auscultation: normal bowel sounds General: Yes no CVA tenderness Back/Spine/Pelvis Back: no CVA tenderness Skin General skin exam: no rashes or lesions noted Neuro General: patient oriented x3 and moves all extremities Office Meds epoetin sally-epbx 10,000 unit/mL injection solution Performing Provider: Lamonte Quiroga MD Performing Location: [facility] Administered by: Lamonte Quiroga MD on 01/02/24 15:21 Dose Route Admin Location Dispensed Lot Number Expiration Date [facility] [employer] 20,000 unit subcut Abdomen 2 mL [id number] 03/02/26 9220-9959-00 [employer] Assessment & Plan Assessment & Plan (1) Pain and swelling of left wrist: Code(s): M25.532 - Pain in left wrist; M25.432 - Effusion, left wrist (2) Secondary hyperparathyroidism (of renal origin): Code(s): N25.81 - Secondary hyperparathyroidism of renal origin (3) Anemia in chronic kidney disease: Code(s): N18.9 - Chronic kidney disease, unspecified; D63.1 - Anemia in chronic kidney disease Qualifiers: Chronic kidney disease stage: stage 4 (severe) Qualified Code(s): N18.4 - Chronic kidney disease, stage 4 (severe); D63.1 - Anemia in chronic kidney disease (4) Chronic kidney disease, stage 4 (severe): Code(s): N18.4 - Chronic kidney disease, stage 4 (severe) (5) Essential hypertension: Code(s): I10 - Essential (primary) hypertension Plan 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 She had not been tolerating ALEJO-inhibitor but is on hydralazine and Imdur. Her previous renal ultrasound had shown thinning of renal cortex. She had extensive workup done which did not show any other etiology for her CKD. She should continue on her current dose of diuretics. She should cut back sodium in the diet. She had iron deficiency and had received Venofer in the past, which I re ordered. She also had been on Procrit. I administered [id number] U of procrit in the office today. She has history of secondary hyperparathyroidism of renal origin. She had been on vitamin-D and calcitriol. Her left wrist pain is likely from gout. I gave her a dose of PO prednisone. She is on SGLT 2 inhibitor. All questions answered Orders: Orders AMB Epoetin Injection Practice Supplied Today D63.1 - Anemia in chronic kidney disease, N18.9 - Chronic kidney disease, unspecified Electrolytes Today D63.1 - Anemia in chronic kidney disease, M25.432 - Effusion, left wrist, M25.532 - Pain in left wrist, N18.4 - Chronic kidney disease, stage 4 (severe), N18.9 - Chronic kidney disease, unspecified, N25.81 - Secondary hyperparathyroidism of renal origin Phosphorus Today D63.1 - Anemia in chronic kidney disease, M25.432 - Effusion, left wrist, M25.532 - Pain in left wrist, N18.4 - Chronic kidney disease, stage 4 (severe), N18.9 - Chronic kidney disease, unspecified, N25.81 - Secondary hyperparathyroidism of renal origin Complete Blood Count Auto Diff Today D63.1 - Anemia in chronic kidney disease, M25.432 - Effusion, left wrist, M25.532 - Pain in left wrist, N18.4 - Chronic kidney disease, stage 4 (severe), N18.9 - Chronic kidney disease, unspecified, N25.81 - Secondary hyperparathyroidism of renal origin Calcium Today D63.1 - Anemia in chronic kidney disease, M25.432 - Effusion, left wrist, M25.532 - Pain in left wrist, N18.4 - Chronic kidney disease, stage 4 (severe), N18.9 - Chronic kidney disease, unspecified, N25.81 - Secondary hyperparathyroidism of renal origin Blood Urea Nitrogen Today D63.1 - Anemia in chronic kidney disease, M25.432 - Effusion, left wrist, M25.532 - Pain in left wrist, N18.4 - Chronic kidney disease, stage 4 (severe), N18.9 - Chronic kidney disease, unspecified, N25.81 - Secondary hyperparathyroidism of renal origin Creatinine Today D63.1 - Anemia in chronic kidney disease, M25.432 - Effusion, left wrist, M25.532 - Pain in left wrist, N18.4 - Chronic kidney disease, stage 4 (severe), N18.9 - Chronic kidney disease, unspecified, N25.81 - Secondary hyperparathyroidism of renal origin Calcium 6 Weeks D63.1 - Anemia in chronic kidney disease, M25.432 - Effusion, left wrist, M25.532 - Pain in left wrist, N18.4 - Chronic kidney disease, stage 4 (severe), N18.9 - Chronic kidney disease, unspecified, N25.81 - Secondary hyperparathyroidism of renal origin Parathyroid Hormone Intact Today D63.1 - Anemia in chronic kidney disease, M25.432 - Effusion, left wrist, M25.532 - Pain in left wrist, N18.4 - Chronic kidney disease, stage 4 (severe), N18.9 - Chronic kidney disease, unspecified, N25.81 - Secondary hyperparathyroidism of renal origin Medications: New prednisone 20 mg PO DAILY 7 tabs 0RF Refilled iron sucrose (Venofer) administer over 30 mins 100 mg (5 mL) IV QWEEK 5 doses Coding Level of Care Code Est Pt Level 4 (74496) Diagnoses Pain and swelling of left wrist M25.532; M25.432 Secondary hyperparathyroidism (of renal origin) N25.81 Anemia in stage 4 chronic kidney disease N18.4; D63.1 Chronic kidney disease stage: stage 4 (severe) Chronic kidney disease, stage 4 (severe) N18.4 Essential hypertension I10 Results Reviewed Nephrology Results: Hgb 9.5 g/dl (12.0-16.0) L 12/21/23 WBC 7.0 X10*3/uL (4.8-10.8) 12/21/23 Plt Count 410 X10*3/uL (160-400) H 12/21/23 Sodium 141 mmol/L (135-145) 12/21/23 Potassium 3.1 mmol/L (3.3-5.1) L 12/21/23 Chloride 104 mmol/L (96-108) 12/21/23 Carbon Dioxide 25 mmol/L (22-29) 12/21/23 BUN 25 mg/dL (9-16) H 12/21/23 Creatinine 2.45 mg/dL (0.5-1.4) H 12/21/23 Calcium 8.7 mg/dL (8.4-10.2) 12/21/23 Phosphorus 2.2 mg/dL (2.7-4.5) L 10/27/23 PTH Intact 293.5 pg/mL (8.7-77.1) H 10/27/23
== END 2024-01-02 15:29 | disposition home or self-care (01) ==
PROVIDERS: PCP Family Medicine; Visit Provider Internal Medicine Nephrology
DX: M25.532 Pain in left wrist (principal); M25.432 Effusion, left wrist; N25.81 Secondary hyperparathyroidism of renal origin; N18.4 Chronic kidney disease, stage 4 (severe); D63.1 Anemia in chronic kidney disease; I12.9 Hypertensive chronic kidney disease with stage 1 through stage 4 chronic kidney disease, or unspecified chronic kidney disease; N18.9 Chronic kidney disease, unspecified
CPT/HCPCS: 99214

== ENCOUNTER → 2024-01-02 14:42 | Outpatient (BNVA) | payer OTHER, SELFPAY | PROVIDERS: PCP Family Medicine; Visit Provider Internal Medicine Nephrology | DX: N25.81 Secondary hyperparathyroidism of renal origin (principal); M25.532 Pain in left wrist; M25.432 Effusion, left wrist; I12.9 Hypertensive chronic kidney disease with stage 1 through stage 4 chronic kidney disease, or unspecified chronic kidney disease; N18.4 Chronic kidney disease, stage 4 (severe); D63.1 Anemia in chronic kidney disease | CPT/HCPCS: 96372; 99212; Q5106 ==

== ENCOUNTER 2024-01-03 13:42 | Outpatient (REF) | payer OTHER, SELFPAY ==
--- NOTE | ~2024-01-03 | XR_ITS ---
EXAMINATION: XR CHEST CLINICAL INFORMATION: Heart failure COMPARISON: None available. TECHNIQUE: 2 views of the chest were obtained. FINDINGS: No significant abnormality is noted involving the heart, lungs, mediastinum, or soft tissues. Thoracic spine degenerative type changes. XR/XR chest 2V IMPRESSION: No acute cardiopulmonary disease.
--- NOTE | ~2024-01-03 | XR_ITS ---
EXAMINATION: XR WRIST, LEFT CLINICAL INFORMATION: Pain. COMPARISON: Radiographs dated 05/04/2021. TECHNIQUE: PA, lateral, and oblique views of the left wrist. FINDINGS: Bony alignment and mineralization are normal. There is a mild ulnar positive variance. No fracture, dislocation or bony erosive change is seen. The proximal and distal carpal rows are intact. There is narrowing of the radiocarpal interval. No focal soft tissue swelling, gas or foreign body is seen. There are atherosclerotic calcifications. XR/XR wrist LT min 3V IMPRESSION: There is degenerative change of the left radiocarpal joint. No fracture or dislocation is seen.
== END 2024-01-03 13:43 | disposition home or self-care (01) ==
LOC: HO.XRAY 13:42
PROVIDERS: PCP Family Medicine; Visit Provider Family Medicine
DX: I50.9 Heart failure, unspecified (principal); M25.532 Pain in left wrist; M25.432 Effusion, left wrist
CPT/HCPCS: 71046; 73110

== ENCOUNTER 2024-01-09 09:29 | Outpatient (REF) | payer OTHER, SELFPAY ==
[2024-01-09 11:39] LABS: MANUAL DIFF FLAG NO
[2024-01-09 11:42] LABS: Basophils Percent Auto 0.7 % (0-2); Eosinophils Absolute Auto 0.4 X10*3/uL (0.0-0.4); Eosinophils Percent Auto 6.8 % (0-4); Hemoglobin 9.5 g/dl (12.0-16.0); Imm Gran Abs Auto 0.03 X10*3/uL (0.00-0.03); Imm Gran Pct Auto 0.5 % (0.0-0.4); Lymphocytes Absolute Auto 1.3 X10*3/uL (1.2-4.9); Lymphocytes Percent Auto 22.8 % (20-40); Mean Corpuscular HGB Conc 30.6 g/dl (31.0-35.0); Mean Corpuscular Hemoglobin 26.1 pg (27.0-33.0); Mean Corpuscular Volume 85.2 fL (80.0-98.0); Mean Platelet Volume 10.9 fL (9.4-12.3); Monocytes Absolute Auto 0.7 X10*3/uL (0.1-1.2); Monocytes Percent Auto 12.8 % (2-11); Neutrophils Absolute Auto 3.2 x10*3/uL (2.0-8.3); Neutrophils Percent Auto 56.4 % (45-73); Platelet Count 403 X10*3/uL (160-400); Red Blood Count 3.64 X10*6/uL (4.20-5.50); Red Cell Distribution Width 17.1 % (11.0-16.0); White Blood Count 5.7 X10*3/uL (4.8-10.8)
[2024-01-09 12:26] LABS: Alanine Aminotransferase 11 U/L (0-31); Albumin Level 3.5 g/dL (3.5-5.0); Alkaline Phosphatase 132 U/L (39-117); Anion Gap 15 (12-20); Aspartate Amino Transferase 10 U/L (5-31); Bilirubin Total 0.4 mg/dL (0.0-1.0); Blood Urea Nitrogen 31 mg/dL (9-16); Calcium 8.4 mg/dL (8.4-10.2); Carbon Dioxide 23 mmol/L (22-29); Chloride 105 mmol/L (96-108); Estimated Glomerular Filt Rate 15; Glucose Fasting 211 mg/dL (60-99); Potassium 3.3 mmol/L (3.3-5.1); Sodium 140 mmol/L (135-145); Total Protein 7.4 g/dL (6.5-8.0)
== END 2024-01-09 09:30 | disposition home or self-care (01) ==
LOC: HO.WFDLDS 09:29
PROVIDERS: Visit Provider Family Medicine
DX: Z00.00 Encounter for general adult medical examination without abnormal findings (principal); E11.22 Type 2 diabetes mellitus with diabetic chronic kidney disease; N18.4 Chronic kidney disease, stage 4 (severe); D64.9 Anemia, unspecified; Z79.4 Long term (current) use of insulin
CPT/HCPCS: 36415; 80053; 85025

== ENCOUNTER 2024-01-12 12:39 | Outpatient (AMB) | payer OTHER, SELFPAY ==
[2024-01-12 12:47] VITALS: BP 128/60; PULSE 85; O2SAT 98; BMI 34.7
--- NOTE | 2024-01-12 12:47 | MHC.PC.OV ---
Vital Signs 01/12/24 12:47 Height 5 ft 6 in Weight 215 lb BMI 34.7 BP 128/60 Blood Pressure Location Lt brachial Position Sitting Pulse 85 Pulse Source Pulse Oximeter Pulse Oximetry (%) 98 Oxygen Delivery Method Room Air Intake Visit Reasons: f/u diabetes, chronic conditions-see comments Intake Note: Patient is here to follow up on diabetes and other chronic conditions. Patient is requesting prescription for bed pans and diabers, size L for 3 a day. Going to [facility]. Allergies baclofen Allergy (Severe, Verified 01/12/24 12:51) can't move sulfacetamide Allergy (Severe, Verified 01/12/24 12:51) tongue swelling sulfur Allergy (Severe, Verified 01/12/24 12:51) tongue swelling Medication List - Last Reconciled 01/12/24 by Tommie Suarez MD acetaminophen 650 mg (2 x 325 mg) PO Q8H PRN albuterol sulfate 90 mcg/actuation (Ventolin HFA) 2 puffs PO QID PRN aspirin 81 mg PO DAILY atorvastatin 40 mg PO DAILY blood sugar diagnostic (OneTouch Verio test strips) Test Blood Sugar 3 times a day As directed, 90 days blood sugar diagnostic (FreeStyle Lite Strips) USE DIRECTED TO TEST BLOOD SUGAR THREE TIMES DAILY blood-glucose meter (FreeStyle [place] Lite kit) As directed 3x/day blood-glucose meter (OneTouch Verio Flex Meter) Test Blood sugar As directed, 999 days bumetanide 2 mg PO BID bumetanide 2 mg PO BID bupropion HCl XL 150 mg PO QAM calcitriol 0.25 mcg PO DAILY cariprazine (Vraylar) 1.5 mg PO DAILY 30 days carvedilol 12.5 mg (2 tabs) AM and 6.25 mg (1 tab) PM 90 days clopidogrel 75 mg PO DAILY 90 days diclofenac sodium 1% 4 grams topical TID PRN 30 days docusate sodium (Colace) 100 mg PO TID PRN 30 days dulaglutide (Trulicity) 4.5 mg (0.5 mL) subcut QWEEK empagliflozin (Jardiance) 10 mg PO DAILY epoetin sally (Procrit) 2,000 units IV 3XW ergocalciferol (vitamin D2) 1,250 mcg PO QWEEK famotidine 40 mg PO DAILY 90 days ferrous sulfate (FeroSul) mg PO fluticasone propion-salmeterol 250-50 mcg/dose (Advair Diskus) 1 ea PO BID 30 days gabapentin 100 mg PO BID hydralazine 50 mg PO TID 30 days insulin aspart U-100 (Novolog FlexPen U-100 Insulin aspart) 8 units (0.08 mL) subcut DAILY 30 days insulin glargine (Lantus Solostar U-100 Insulin) 40 units (0.4 mL) subcut QAM 30 days iron sucrose (Venofer) 100 mg (5 mL) IV QWEEK 5 doses isosorbide mononitrate ER 90 mg (1.5 x 60 mg) PO DAILY 30 days lancets (PushPointuch Delica Plus Lancet) Test bood sugar 3 times a day, As directed, 90 days miscellaneous medical supply Disposable Absorbent Pads DX: Urinary incontinence As directed, 2 per night, duration 999 days, 30 day supply montelukast 10 mg PO DAILY pantoprazole 20 mg PO DAILY 90 days pen needle, diabetic As directed 4 times a day, 90 day supply polyethylene glycol 3350 (Miralax) 17 grams PO DAILY 14 days potassium chloride ER 10 mEq PO DAILY prednisone 20 mg PO DAILY trazodone 250 mg PO BEDTIME venlafaxine ER 225 mg PO DAILY Tobacco use date assessed: 01/12/24 Dental Screening Dental Screen Date: 01/12/24 Did you have a dental visit in the last 12 months?: Yes Did you have a dental problem in the last 6 months where you did not have access to dental care?: No Was dental information given to patient?: Patient has dentist HPI f/u diabetes, chronic conditions-see comments HPI Details 63 y/o female presents to f/u diabetes, chronic conditions. Had increased her carvedilol and continued hydralazine. Renal function does not tolerate other medications like ARB/ACEi. Follows up with neprology for chronic kidney disease. A1c today 01/12/24 is 7.0%. Blood pressure today 128/60. He is on hydralazine 50mg t.i.d., carvedilol. Pt reports she continues to get procrit shots for her anemia and f/u with nephrology for this. HPI Comments History of Present Illness Details Documentation assistance for Tommie Suarez MD, was provided by Sanjiv Nguyen,? Vascular Physician on 01/12/2024 1:19 PM EST. [place], Dr. Suarez, have read, observed, and verified documentation. [facility] Medical History (Reviewed 01/12/24 @ 12:52 by Kamryn Armenta [facility] [address]) Sleep apnea Myocardial infarction CVA (cerebral vascular accident) Type 2 diabetes mellitus with diabetic polyneuropathy Chronic kidney disease, stage 4 (severe) Essential hypertension Hyperlipidemia LDL goal <70 Obesity due to excess calories Chronic, continuous use of opioids Chronic pain syndrome Spinal stenosis, lumbar region with neurogenic claudication Surgical History History of rotator cuff surgery History of abdominoplasty Status post breast reduction Hx of toe surgery Family History Father No problems noted. Mother Diabetes Hypertension Sister No problems noted. Sister No problems noted. Son No problems noted. Social History Household Members: Friend(s) Household Members Other:: roomate Housing: Apartment Alcohol intake: never Patient Tobacco Use Status: Former Tobacco user Quit Date: 2019 Tobacco use type: Cigarette Cigarette Packs Per Day: 0.5 e-Cigarette/Vaping Use: Never Used Second Hand Smoke Exposure: No Advance Directives Date on File: 07/07/20 service: No Current occupational status: disabled Current occupational exposures/hazards: No Cognitive needs: No Hearing needs: No Vision needs: No Questionnaire PHQ-9 Over the last 2 weeks, how often have you been bothered by any of the following problems? 1. Little interest or pleasure in doing things: not at all 2. Feeling down, depressed, or hopeless: not at all 3. Trouble falling or staying asleep, or sleeping too much: not at all 4. Feeling tired or having little energy: not at all 5. Poor appetite or overeating: not at all 6. Feeling bad about yourself - or that you are a failure or have let yourself or your family down: not at all 7. Trouble concentrating on things, such as reading the newspaper or watching television: not at all 8. Moving or speaking so slowly that other people could have noticed. Or the opposite - being so fidgety or restless that you have been moving around a lot more than usual: not at all 9. Thoughts that you would be better off or of hurting yourself in some way: not at all Total score: 0 Depression Screening Interpretation: Negative Depression Screening Done: Yes 10336 - PHQ-9 Billing: Yes Source: Developed by Drs. Andre Hilario, Kasey Patel, Jose Rausch and colleagues, with an educational micha from [employer]. Thrive Questionnaire Date Thrive assessed: 01/12/24 I am a: Patient What is your living situation today?: I have a steady place to live Within the past 12 months, did the food you bought not last and you didn't have the money to get more?: Never true Within the past 12 months, did you worry whether your food would run out before you got money to buy more?: Never true Do you have trouble paying for medicines?: No Do you have trouble getting transportation to medical appointments?: No Do you have trouble paying your heating and electricity bill?: No Do you have trouble taking care of your child, family member or friend?: No Do you have trouble with day-to-day activities such as bathing, preparing meals, shopping, managing finances, etc.?: No Are you currently unemployed and looking for a job?: No Are you interested in more education?: No THRIVE Score: 0 BRITT-7 AMB Questionnaire BRITT-7 Date BRITT - 7 assessed: 01/12/24 Feeling nervous, anxious, or on edge: 0 = Not at all Not being able to stop or control worryin = Not at all Worrying too much about different things: 0 = Not at all Trouble relaxin = Not at all Being so restless that it is hard to sit still: 0 = Not at all Becoming easily annoyed or irritable: 0 = Not at all Feeling afraid as if something awful might happen: 0 = Not at all Total BRITT-7 score (0-4 normal; 5-9 mild; 10-14 moderate; 15-21 severe): 0 Source: Developed by Drs. Andre Hilario, Kasey Patel, Jose Rausch and colleagues, with an educational micha from [employer]. BRITT-7 Assessment Billing BRITT-7 Assessment Tool: BRITT-7 Assessment 50511 Review of Systems Const Denies chills, Denies fatigue, Denies fever(s), Denies headache(s) and Denies weakness ENT Denies dizziness and Denies headache(s) Card Denies chest pain, Denies lightheadedness, Denies dyspnea and Denies other (Palpitations) Resp Denies cough, Denies dyspnea, Denies wheezing and Denies other ( shortness of breath) Musc Denies numbness and Denies tingling Neuro Denies dizziness, Denies headache(s), Denies numbness, Denies tingling, Denies paresthesias and Denies weakness Psych Denies anxiety and Denies depression Endo Denies fatigue Aller/Immun Denies wheezing Physical exam (Primary Care) Vital Signs: Last Vital Signs Pulse 85 01/12/24 12:47 BP 128/60 01/12/24 12:47 Pulse Ox 98 01/12/24 12:47 Oxygen Delivery Method Room Air 01/12/24 12:47 BMI result Body Mass Index 34.7 Tobacco/Smoking Status: Tobacco use Status Tobacco use date assessed 01/12/24 01/12/24 12:55 Patient Tobacco Use Status Former Tobacco user 01/12/24 12:55 Tobacco use type Cigarette 01/12/24 12:55 e-Cigarette/Vaping Use Never Used 01/12/24 12:55 PHQ-9: PHQ-9 Score PHQ-9: Total score 0 01/12/24 13:12 Depression Screening Interpretation: Negative Thrive Assessment: Date of Thrive Assessment Date Thrive assessed 01/12/24 01/12/24 12:59 Const General: no acute distress and well developed Nutritional Appearance: well nourished Orientation/consciousness: patient oriented x3 [facility]: Yes normocephalic and Yes atraumatic Eyes General: appearance normal, both eyes and all related structures Pupils: Equal, round and reactive pupils present EOM: EOMs intact bilaterally Resp Effort & Inspection: normal respiratory effort Auscultation: clear to auscultation bilaterally Cardio Rate: regular rate Rhythm: regular rhythm Heart sounds: S1 normal heart sound present, S2 normal heart sound present, no gallops, no murmurs and no rubs Neuro General: patient oriented x3 and gait normal Cranial nerves: Yes Equal, round and reactive pupils present Psych Affect: normal affect Results AMB Hemoglobin A1c AMB Hemoglobin A1c 7.0 % Last Edit by Kamryn Armenta CMA on 01/12/24 13:11 Results Reviewed Results Reviewed: Laboratory Last Values Hgb A1c (Clinic) 7.0 % (4.0-6.0) H 01/12/24 13:07 Assessment and Plan Assessment & Plan (1) Essential hypertension: Code(s): I10 - Essential (primary) hypertension Plan: Blood?pressure?much?improved?after?adjusting?her?carvedilol?and?continuing?hydralazine. Goal?is?less?than?140/90 Continue?current?medication?regimen (2) Type 2 diabetes mellitus with diabetic chronic kidney disease: Code(s): E11.22 - Type 2 diabetes mellitus with diabetic chronic kidney disease Qualifiers: Chronic kidney disease stage: stage 4 (severe) Diabetes mellitus terminal supervisor insulin use: with correction use Qualified Code(s): E11.22 - Type 2 diabetes mellitus with diabetic chronic kidney disease; N18.4 - Chronic kidney disease, stage 4 (severe); Z79.4 - parts counterman (current) use of insulin Plan: A1c?7.0%?which?is?good?control?for?her.??Goal?is?7.0% Continue?current?medications Encouraged?diabetic?diet (3) Anemia in chronic kidney disease: Code(s): N18.9 - Chronic kidney disease, unspecified; D63.1 - Anemia in chronic kidney disease Qualifiers: Chronic kidney disease stage: stage 4 (severe) Qualified Code(s): N18.4 - Chronic kidney disease, stage 4 (severe); D63.1 - Anemia in chronic kidney disease Plan: Followed?by?Nephrology?and?receiving?Procrit?injection Follow-up?with?nephrology?as?recommended (4) Pain and swelling of left wrist: Code(s): M25.532 - Pain in left wrist; M25.432 - Effusion, left wrist Plan: Likely?gout?and?she?is?now?on?prednisone Finish?prednisone Check?uric?acid?with?next?set?of?labs (5) Urinary incontinence: Code(s): R32 - Unspecified urinary incontinence Plan: Ongoing?urinary?incontinence Refilled?scripts?for?pads?and?briefs Orders: Orders AMB Hemoglobin A1c Today Z13.9 - Encounter for screening, unspecified Uric Acid Today M25.432 - Effusion, left wrist, M25.532 - Pain in left wrist Referrals Ophthalmology Referral E11.42 - Type 2 diabetes mellitus with diabetic polyneuropathy Medications: New diaper,brief,adult,disposable (Comfort Shield Adult Diaper) Large. 3 times a day As directed, 90 days 270 ea 6RF R32 - Unspecified urinary incontinence Refilled miscellaneous medical supply Disposable Absorbent Pads DX: Urinary incontinence As directed, 2 per night, duration 999 days, 30 day supply 60 ea 11RF R32 - Unspecified urinary incontinence Coding Level of Care Code Est Pt Level 4 (72624) Diagnoses Essential hypertension I10 Type 2 diabetes mellitus with stage 4 chronic kidney disease, with long-term current use of insulin E11.22; N18.4; Z79.4 Chronic kidney disease stage: stage 4 (severe) Diabetes mellitus terminal supervisor insulin use: with correction use Anemia in stage 4 chronic kidney disease N18.4; D63.1 Chronic kidney disease stage: stage 4 (severe) Pain and swelling of left wrist M25.532; M25.432 Urinary incontinence R32 Additional Codes BRITT-7 Assessment Billing - BRITT-7 Assessment Tool: BRITT-7 Assessment 98999 ([id number])
== END 2024-01-12 13:43 | disposition home or self-care (01) ==
PROVIDERS: PCP Family Medicine; Visit Provider Family Medicine
DX: I12.9 Hypertensive chronic kidney disease with stage 1 through stage 4 chronic kidney disease, or unspecified chronic kidney disease (principal); E11.22 Type 2 diabetes mellitus with diabetic chronic kidney disease; N18.4 Chronic kidney disease, stage 4 (severe); Z79.4 Long term (current) use of insulin; D63.1 Anemia in chronic kidney disease; M25.532 Pain in left wrist; M25.432 Effusion, left wrist; R32 Unspecified urinary incontinence
CPT/HCPCS: 83036; 99214

== ENCOUNTER 2024-03-28 13:19 | Outpatient (AMB) | payer OTHER, SELFPAY ==
[2024-03-28 13:38] VITALS: BP 128/60; PULSE 92; O2SAT 100; BMI 29.9
--- NOTE | 2024-03-28 13:38 | HO.NEPHOV ---
Vital Signs 03/28/24 13:38 Height 5 ft 6 in Weight 185 lb 6 oz BMI 29.9 BP 128/60 Blood Pressure Location Lt brachial Position Sitting Pulse 92 Pulse Source Pulse Oximeter Pulse Oximetry (%) 100 Oxygen Delivery Method Room Air Intake Visit Reasons: R/S 01/02/2024/ Conf [place] [address] Required: No Accompanied by: Self / Same As Patient Allergies baclofen Allergy (Severe, Verified 03/28/24 13:40) can't move sulfacetamide Allergy (Severe, Verified 03/28/24 13:40) tongue swelling sulfur Allergy (Severe, Verified 03/28/24 13:40) tongue swelling HPI Comments Details: I had the delight of seeing Ms. Cutler in the office in follow-up of her chronic kidney disease, hypertension and anemia. She denies any headache, visual disturbance, nausea, vomiting, diarrhea, chest pain, shortness of breath, worsening pedal edema or urinary symptoms. She denies any uremic symptoms. She claims to have her blood sugars better . She had been getting Procrit in the past. She denies taking any dnoc-dkg-bjqrpta medications. She is on lipid-lowering agents. Her blood pressure is better controlled. She had flu and was in hospital and rehab. [facility] Medical History Sleep apnea Myocardial infarction CVA (cerebral vascular accident) Type 2 diabetes mellitus with diabetic polyneuropathy Chronic kidney disease, stage 4 (severe) Essential hypertension Hyperlipidemia LDL goal <70 Obesity due to excess calories Chronic, continuous use of opioids Chronic pain syndrome Spinal stenosis, lumbar region with neurogenic claudication Surgical History History of rotator cuff surgery History of abdominoplasty Status post breast reduction Hx of toe surgery Family History Father No problems noted. Mother Diabetes Hypertension Sister No problems noted. Sister No problems noted. Son No problems noted. Social History Household Members: Friend(s) Household Members Other:: roomate Housing: Apartment Alcohol intake: never Patient Tobacco Use Status: Former Tobacco user Tobacco use type: Cigarette Cigarette Packs Per Day: 0.5 e-Cigarette/Vaping Use: Never Used Second Hand Smoke Exposure: No Advance Directives Date on File: 07/07/20 service: No Current occupational status: disabled Current occupational exposures/hazards: No Cognitive needs: No Hearing needs: No Vision needs: No Physical Exam Const General: comfortable and no acute distress Orientation/consciousness: patient oriented x3 HEENT Head: Yes normocephalic Mouth: Normal oral and palatal mucosa present Eyes EOM: EOMs intact bilaterally Neck Neck: Yes supple Resp Auscultation: clear to auscultation bilaterally Cardio Jugular venous distension: no JVD Rate: regular rate GI Palpation (GI): Soft to palpation Auscultation: normal bowel sounds General: Yes no CVA tenderness Back/Spine/Pelvis Back: no CVA tenderness Skin General skin exam: no rashes or lesions noted Neuro General: patient oriented x3 and moves all extremities Extrem General: Yes no pedal edema Office Meds epoetin sally-epbx 10,000 unit/mL injection solution Performing Provider: Lamonte Quiroga MD Performing Location: [facility] Administered by: Lamonte Quiroga MD on 03/28/24 13:47 Dose Route Admin Location Dispensed Lot Number Expiration Date [facility] [employer] 20,000 unit subcut LUE 2 mL [id number] 09/01/25 [id number] [employer] [place] [employer] Results Reviewed Nephrology Results: Hgb 9.5 g/dl (12.0-16.0) L 01/09/24 WBC 5.7 X10*3/uL (4.8-10.8) 01/09/24 Plt Count 403 X10*3/uL (160-400) H 01/09/24 Sodium 140 mmol/L (135-145) 01/09/24 Potassium 3.3 mmol/L (3.3-5.1) 01/09/24 Chloride 105 mmol/L (96-108) 01/09/24 Carbon Dioxide 23 mmol/L (22-29) 01/09/24 BUN 31 mg/dL (9-16) H 01/09/24 Creatinine 3.10 mg/dL (0.5-1.4) H 01/09/24 Calcium 8.4 mg/dL (8.4-10.2) 01/09/24 Phosphorus 2.2 mg/dL (2.7-4.5) L 10/27/23 PTH Intact 293.5 pg/mL (8.7-77.1) H 10/27/23 Assessment & Plan Assessment & Plan (1) Secondary hyperparathyroidism (of renal origin): Code(s): N25.81 - Secondary hyperparathyroidism of renal origin Category: Medical (2) Anemia in chronic kidney disease: Code(s): N18.9 - Chronic kidney disease, unspecified; D63.1 - Anemia in chronic kidney disease Category: Medical Qualifiers: Chronic kidney disease stage: stage 4 (severe) Qualified Code(s): N18.4 - Chronic kidney disease, stage 4 (severe); D63.1 - Anemia in chronic kidney disease (3) Chronic kidney disease, stage 4 (severe): Code(s): N18.4 - Chronic kidney disease, stage 4 (severe) Category: Medical (4) Essential hypertension: Code(s): I10 - Essential (primary) hypertension Category: Medical Plan 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 She had not been tolerating ALEJO-inhibitor but is on hydralazine and Imdur. Her previous renal ultrasound had shown thinning of renal cortex. She had extensive workup done which did not show any other etiology for her CKD. She should continue on her current dose of diuretics. She should cut back sodium in the diet. She had iron deficiency and had received Venofer in the past, which I re ordered. She also had been on Procrit. I administered 95411 U of procrit in the office today. She has history of secondary hyperparathyroidism of renal origin. She had been on vitamin-D and calcitriol. She is on SGLT 2 inhibitor. All questions answered Orders: Orders Ferritin Today D63.1 - Anemia in chronic kidney disease, I10 - Essential (primary) hypertension, N18.4 - Chronic kidney disease, stage 4 (severe), N25.81 - Secondary hyperparathyroidism of renal origin IRON PROFILE Today D63.1 - Anemia in chronic kidney disease, I10 - Essential (primary) hypertension, N18.4 - Chronic kidney disease, stage 4 (severe), N25.81 - Secondary hyperparathyroidism of renal origin Complete Blood Count Auto Diff Today D63.1 - Anemia in chronic kidney disease, I10 - Essential (primary) hypertension, N18.4 - Chronic kidney disease, stage 4 (severe), N25.81 - Secondary hyperparathyroidism of renal origin Creatinine Today D63.1 - Anemia in chronic kidney disease, I10 - Essential (primary) hypertension, N18.4 - Chronic kidney disease, stage 4 (severe), N25.81 - Secondary hyperparathyroidism of renal origin Electrolytes Today D63.1 - Anemia in chronic kidney disease, I10 - Essential (primary) hypertension, N18.4 - Chronic kidney disease, stage 4 (severe), N25.81 - Secondary hyperparathyroidism of renal origin Phosphorus Today D63.1 - Anemia in chronic kidney disease, I10 - Essential (primary) hypertension, N18.4 - Chronic kidney disease, stage 4 (severe), N25.81 - Secondary hyperparathyroidism of renal origin AMB Epoetin Injection Practice Supplied Today D63.1 - Anemia in chronic kidney disease, N18.4 - Chronic kidney disease, stage 4 (severe) Blood Urea Nitrogen Today D63.1 - Anemia in chronic kidney disease, I10 - Essential (primary) hypertension, N18.4 - Chronic kidney disease, stage 4 (severe), N25.81 - Secondary hyperparathyroidism of renal origin Calcium Today D63.1 - Anemia in chronic kidney disease, I10 - Essential (primary) hypertension, N18.4 - Chronic kidney disease, stage 4 (severe), N25.81 - Secondary hyperparathyroidism of renal origin Coding Level of Care Code Est Pt Level 4 (75443) Diagnoses Secondary hyperparathyroidism (of renal origin) N25.81 Anemia in stage 4 chronic kidney disease N18.4; D63.1 Chronic kidney disease stage: stage 4 (severe) Chronic kidney disease, stage 4 (severe) N18.4 Essential hypertension I10
== END 2024-03-28 14:09 | disposition home or self-care (01) ==
PROVIDERS: PCP Family Medicine; Visit Provider Internal Medicine Nephrology
DX: N25.81 Secondary hyperparathyroidism of renal origin (principal); I12.9 Hypertensive chronic kidney disease with stage 1 through stage 4 chronic kidney disease, or unspecified chronic kidney disease; N18.4 Chronic kidney disease, stage 4 (severe); D63.1 Anemia in chronic kidney disease
CPT/HCPCS: 99214

== ENCOUNTER → 2024-03-28 13:19 | Outpatient (BNVA) | payer OTHER, SELFPAY | PROVIDERS: PCP Family Medicine; Visit Provider Internal Medicine Nephrology ==

== ENCOUNTER 2024-03-28 14:00 | Outpatient (REF) | payer OTHER, SELFPAY ==
[2024-03-28 17:53] LABS: MANUAL DIFF FLAG NO
[2024-03-28 18:07] LABS: Basophils Percent Auto 0.6 % (0-2); Eosinophils Absolute Auto 0.4 X10*3/uL (0.0-0.4); Eosinophils Percent Auto 5.1 % (0-4); Hematocrit 31.7 % (37.0-47.0); Hemoglobin 9.9 g/dl (12.0-16.0); Imm Gran Abs Auto 0.04 X10*3/uL (0.00-0.03); Imm Gran Pct Auto 0.6 % (0.0-0.4); Lymphocytes Absolute Auto 1.8 X10*3/uL (1.2-4.9); Lymphocytes Percent Auto 25.4 % (20-40); Mean Corpuscular HGB Conc 31.2 g/dl (31.0-35.0); Mean Corpuscular Hemoglobin 24.9 pg (27.0-33.0); Mean Corpuscular Volume 79.6 fL (80.0-98.0); Mean Platelet Volume 12.2 fL (9.4-12.3); Monocytes Absolute Auto 0.7 X10*3/uL (0.1-1.2); Monocytes Percent Auto 9.7 % (2-11); Neutrophils Absolute Auto 4.1 x10*3/uL (2.0-8.3); Neutrophils Percent Auto 58.6 % (45-73); Platelet Count 347 X10*3/uL (160-400); Red Blood Count 3.98 X10*6/uL (4.20-5.50); Red Cell Distribution Width 17.4 % (11.0-16.0); White Blood Count 6.9 X10*3/uL (4.8-10.8)
[2024-03-28 18:16] LABS: Anion Gap 13 (12-20); Blood Urea Nitrogen 50 mg/dL (9-16); Calcium 8.8 mg/dL (8.4-10.2); Carbon Dioxide 22 mmol/L (22-29); Chloride 103 mmol/L (96-108); Estimated Glomerular Filt Rate 17; Iron 49 mcg/dL (30-160); Percent Iron Saturation 38 % (15-50); Phosphorus 3.1 mg/dL (2.7-4.5); Potassium 3.3 mmol/L (3.3-5.1); Sodium 135 mmol/L (135-145); Total Iron Binding Capacity 129 mcg/dL (228-428); Unsaturated Iron Binding 80 ug/dL
[2024-03-28 18:29] LABS: Ferritin 124 ng/mL (10-250)
== END 2024-03-28 14:01 | disposition home or self-care (01) ==
LOC: HO.HKASLDS 14:00
PROVIDERS: Visit Provider Internal Medicine Nephrology
DX: N25.81 Secondary hyperparathyroidism of renal origin (principal); I12.9 Hypertensive chronic kidney disease with stage 1 through stage 4 chronic kidney disease, or unspecified chronic kidney disease; N18.4 Chronic kidney disease, stage 4 (severe); D63.1 Anemia in chronic kidney disease
CPT/HCPCS: 36415; 80051; 82310; 82565; 82728; 83540; 84100; 84520; 85025; 96372; 99212; Q5106

== ENCOUNTER 2024-04-09 15:14 | Outpatient (AMB) | payer OTHER, SELFPAY ==
[2024-04-09 15:40] VITALS: BP 130/58; PULSE 64; O2SAT 98; BMI 31.3
--- NOTE | 2024-04-09 15:40 | MHC.PC.OV ---
Vital Signs 04/09/24 15:40 Height 5 ft 6 in Weight 194 lb 4 oz BMI 31.3 BP 130/58 L Blood Pressure Location Lt brachial Position Sitting Pulse 64 Pulse Source Pulse Oximeter Pulse Oximetry (%) 98 Oxygen Delivery Method Room Air Intake Visit Reasons: f/u diabetes, chronic conditions Intake Note: Patient is here to follow up on diabetes today. Allergies baclofen Allergy (Severe, Verified 04/09/24 15:43) can't move sulfacetamide Allergy (Severe, Verified 04/09/24 15:43) tongue swelling sulfur Allergy (Severe, Verified 04/09/24 15:43) tongue swelling Medication List - Last Reconciled 04/09/24 by Tommie Suarez MD acetaminophen 325 mg PO Q4-6H PRN albuterol sulfate 90 mcg/actuation (Ventolin HFA) 2 puffs PO QID PRN aspirin 81 mg PO DAILY atorvastatin 40 mg PO DAILY bisacodyl 10 mg RI DAILY PRN blood sugar diagnostic (OneTouch Verio test strips) Test Blood Sugar 3 times a day As directed, 90 days blood sugar diagnostic (FreeStyle Lite Strips) USE DIRECTED TO TEST BLOOD SUGAR THREE TIMES DAILY blood-glucose meter (FreeStyle [place] Lite kit) As directed 3x/day blood-glucose meter (OneTouch Verio Flex Meter) Test Blood sugar As directed, 999 days bumetanide 0.5 mg PO DAILY 90 days bupropion HCl XL 150 mg PO QAM calcitriol 0.25 mcg PO DAILY calcitriol 0.25 mcg PO DAILY cariprazine (Vraylar) 1.5 mg PO DAILY 30 days carvedilol 12.5 mg (2 tabs) AM and 6.25 mg (1 tab) PM 90 days clopidogrel 75 mg PO DAILY 90 days dextrose 15 grams PO Q15M PRN diaper,brief,adult,disposable (Comfort Shield Adult Diaper) Large. 3 times a day As directed, 90 days docusate sodium (Colace) 100 mg PO TID PRN 30 days docusate sodium (Colace) 100 mg PO BID PRN doxycycline hyclate 100 mg PO BID dulaglutide (Trulicity) 4.5 mg (0.5 mL) subcut QWEEK empagliflozin (Jardiance) 10 mg PO DAILY epoetin sally (Procrit) 2,000 units IV 3XW ergocalciferol (vitamin D2) 1,250 mcg PO QWEEK famotidine 40 mg PO DAILY 90 days fluticasone propion-salmeterol 250-50 mcg/dose (Advair Diskus) 1 ea PO BID 30 days gabapentin 100 mg PO BID glucagon mg subcut hydralazine 50 mg PO TID 30 days insulin aspart U-100 (Novolog FlexPen U-100 Insulin aspart) 8 units (0.08 mL) subcut DAILY 30 days insulin glargine (Lantus Solostar U-100 Insulin) 40 units (0.4 mL) subcut QAM 30 days insulin lispro (Admelog U-100 Insulin lispro) 1 sliding scale dose subcut USEASDIRECTD iron sucrose (Venofer) 100 mg (5 mL) IV QWEEK 5 doses isosorbide mononitrate ER 30 mg PO DAILY 90 days lancets (R2integrateduch Delica Plus Lancet) Test bood sugar 3 times a day, As directed, 90 days miscellaneous medical supply Disposable Absorbent Pads DX: Urinary incontinence As directed, 2 per night, duration 999 days, 30 day supply montelukast 10 mg PO DAILY omeprazole 40 mg PO DAILY pen needle, diabetic As directed 4 times a day, 90 day supply polyethylene glycol 3350 (Miralax) 17 grams PO DAILY 14 days sennosides (Evac-U-Gen (sennosides)) 17.2 mg PO DAILY Tobacco use date assessed: 04/09/24 Dental Screening Dental Screen Date: 01/12/24 HPI f/u diabetes, chronic conditions HPI Details 63 y/o female presents to f/u diabetes, hypertension, chronic conditions. Last A1c 01/12/24 7.0%. A1c today 04/09/24 is 7.6%. She reports morning blood sugars have been low in the 50-60s but fluctuates up to 200s. Blood pressure today 130/58. She is on carvedilol, hydralazine 50mg t.i.d. HPI Comments History of Present Illness Details Documentation assistance for Tommie Suarez MD, was provided by Sanjiv Nguyen,? Country Printer Apprentice on 04/09/2024 at 4:03 PM EST. I, Dr. Suarez, have read, observed, and verified documentation. [facility] Medical History Sleep apnea Myocardial infarction CVA (cerebral vascular accident) Type 2 diabetes mellitus with diabetic polyneuropathy Chronic kidney disease, stage 4 (severe) Essential hypertension Hyperlipidemia LDL goal <70 Obesity due to excess calories Chronic, continuous use of opioids Chronic pain syndrome Spinal stenosis, lumbar region with neurogenic claudication Surgical History History of rotator cuff surgery History of abdominoplasty Status post breast reduction Hx of toe surgery Family History Father No problems noted. Mother Diabetes Hypertension Sister No problems noted. Sister No problems noted. Son No problems noted. Social History Household Members: Friend(s) Household Members Other:: roomate Housing: Apartment Alcohol intake: never Patient Tobacco Use Status: Former Tobacco user Tobacco use type: Cigarette Cigarette Packs Per Day: 0.5 e-Cigarette/Vaping Use: Never Used Second Hand Smoke Exposure: No Advance Directives Date on File: 07/07/20 service: No Current occupational status: disabled Current occupational exposures/hazards: No Cognitive needs: No Hearing needs: No Vision needs: No Questionnaire Thrive Questionnaire Date Thrive assessed: 01/12/24 BRITT-7 AMB Questionnaire BRITT-7 Date BRITT - 7 assessed: 01/12/24 Source: Developed by Drs. Andre Hilario, Kasey Patel, Jose Rausch and colleagues, with an educational micha from [employer]. Review of Systems Const Denies chills, Denies fatigue, Denies fever(s), Denies headache(s) and Denies weakness ENT Denies dizziness and Denies headache(s) Card Denies dyspnea Resp Denies cough, Denies dyspnea, Denies wheezing and Denies other (shortness of breath) Musc Denies numbness and Denies tingling Neuro Denies dizziness, Denies headache(s), Denies numbness, Denies tingling and Denies weakness Psych Denies anxiety and Denies depression Endo Denies fatigue Aller/Immun Denies wheezing Physical exam (Primary Care) Vital Signs: Last Vital Signs Pulse 64 04/09/24 15:40 BP 130/58 L 04/09/24 15:40 Pulse Ox 98 04/09/24 15:40 Oxygen Delivery Method Room Air 04/09/24 15:40 BMI result Body Mass Index 31.3 Tobacco/Smoking Status: Tobacco use Status Tobacco use date assessed 04/09/24 04/09/24 16:01 Patient Tobacco Use Status Former Tobacco user 04/09/24 16:01 Tobacco use type Cigarette 04/09/24 16:01 e-Cigarette/Vaping Use Never Used 04/09/24 16:01 Thrive Assessment: Date of Thrive Assessment Date Thrive assessed 01/12/24 04/09/24 16:01 Const General: well developed; No acute distress Nutritional Appearance: well nourished Orientation/consciousness: patient oriented x3 HENMT Head: Yes normocephalic and Yes atraumatic Eyes General: appearance normal, both eyes and all related structures Pupils: Equal, round and reactive pupils present EOM: EOMs intact bilaterally Resp Effort & Inspection: normal respiratory effort Neuro General: patient oriented x3 and gait normal Cranial nerves: Yes Equal, round and reactive pupils present Psych Affect: normal affect Results AMB Hemoglobin A1c AMB Hemoglobin A1c 7.6 % Last Edit by Kamryn Armenta CMA on 04/09/24 16:25 Assessment and Plan Assessment & Plan (1) Essential hypertension: Code(s): I10 - Essential (primary) hypertension Plan: Blood?pressure?is?controlled.??Goal?is?less?than?140/90 Continue?current?medication (2) Type 2 diabetes mellitus with diabetic chronic kidney disease: Code(s): E11.22 - Type 2 diabetes mellitus with diabetic chronic kidney disease Qualifiers: Chronic kidney disease stage: stage 4 (severe) Diabetes mellitus correction insulin use: with manager terminal use Qualified Code(s): E11.22 - Type 2 diabetes mellitus with diabetic chronic kidney disease; N18.4 - Chronic kidney disease, stage 4 (severe); Z79.4 - custodial (current) use of insulin Plan: A1c?has?climbed?from?7.0%?to 7.6% She?also?notes?some?low?blood?sugars?as?low?as?60 Has?been?on?some?prednisone?in?the?past Referred?back?to?endocrinology for?poorly?controlled?diabetes?with?low?blood?sugars. (3) Urinary incontinence: Code(s): R32 - Unspecified urinary incontinence Plan: Send?script?for?briefs Orders: Orders AMB Hemoglobin A1c Today Z13.9 - Encounter for screening, unspecified Referrals Endocrinology Referral E11.22 - Type 2 diabetes mellitus with diabetic chronic kidney disease, N18.4 - Chronic kidney disease, stage 4 (severe), Z79.4 - custodial (current) use of insulin Medications: New diaper,brief,adult,disposable (Fitted Briefs Large) 3 times a day As directed, 30 days 96 ea 3RF R32 - Unspecified urinary incontinence Coding Level of Care Code Est Pt Level 4 (86403) Diagnoses Essential hypertension I10 Type 2 diabetes mellitus with stage 4 chronic kidney disease, with long-term current use of insulin E11.22; N18.4; Z79.4 Chronic kidney disease stage: stage 4 (severe) Diabetes mellitus correction insulin use: with manager terminal use Urinary incontinence R32
== END 2024-04-09 16:39 | disposition home or self-care (01) ==
PROVIDERS: PCP Family Medicine; Visit Provider Family Medicine
DX: I12.9 Hypertensive chronic kidney disease with stage 1 through stage 4 chronic kidney disease, or unspecified chronic kidney disease (principal); E11.22 Type 2 diabetes mellitus with diabetic chronic kidney disease; N18.4 Chronic kidney disease, stage 4 (severe); Z79.4 Long term (current) use of insulin; R32 Unspecified urinary incontinence
CPT/HCPCS: 83036; 99214

== ENCOUNTER 2024-04-16 13:12 | Outpatient (AMB) | payer OTHER, SELFPAY ==
--- NOTE | 2024-04-16 13:22 | A.OFFVIS_ITS ---
Vital Signs 04/16/24 13:23 Height 5 ft 6 in Weight 194 lb BMI 31.3 Intake Visit Reasons: Follow Up Intake Note: Patient presents for follow up. patient still having daytime sleepiness Allergies baclofen Allergy (Severe, Verified 04/16/24 13:25) can't move sulfacetamide Allergy (Severe, Verified 04/16/24 13:25) tongue swelling sulfur Allergy (Severe, Verified 04/16/24 13:25) tongue swelling Medication List - Last Reconciled 04/16/24 by ABDULAZIZ Gee acetaminophen 325 mg PO Q4-6H PRN albuterol sulfate 90 mcg/actuation (Ventolin HFA) 2 puffs PO QID PRN aspirin 81 mg PO DAILY atorvastatin 40 mg PO DAILY bisacodyl 10 mg MO DAILY PRN blood sugar diagnostic (OneTouch Verio test strips) Test Blood Sugar 3 times a day As directed, 90 days blood sugar diagnostic (FreeStyle Lite Strips) USE DIRECTED TO TEST BLOOD SUGAR THREE TIMES DAILY blood-glucose meter (FreeStyle [place] Lite kit) As directed 3x/day blood-glucose meter (OneTouch Verio Flex Meter) Test Blood sugar As directed, 999 days bumetanide 0.5 mg PO DAILY 90 days bupropion HCl XL 150 mg PO QAM calcitriol 0.25 mcg PO DAILY calcitriol 0.25 mcg PO DAILY cariprazine (Vraylar) 1.5 mg PO DAILY 30 days carvedilol 12.5 mg (2 tabs) AM and 6.25 mg (1 tab) PM 90 days clopidogrel 75 mg PO DAILY 90 days dextrose 15 grams PO Q15M PRN diaper,brief,adult,disposable (Comfort Shield Adult Diaper) Large. 3 times a day As directed, 90 days diaper,brief,adult,disposable (Fitted Briefs Large) 3 times a day As directed, 30 days docusate sodium (Colace) 100 mg PO TID PRN 30 days docusate sodium (Colace) 100 mg PO BID PRN doxycycline hyclate 100 mg PO BID dulaglutide (Trulicity) 4.5 mg (0.5 mL) subcut QWEEK empagliflozin (Jardiance) 10 mg PO DAILY epoetin sally (Procrit) 2,000 units IV 3XW ergocalciferol (vitamin D2) 1,250 mcg PO QWEEK famotidine 40 mg PO DAILY 90 days fluticasone propion-salmeterol 250-50 mcg/dose (Advair Diskus) 1 ea PO BID 30 days gabapentin 100 mg PO BID glucagon mg subcut hydralazine 50 mg PO TID 30 days insulin aspart U-100 (Novolog FlexPen U-100 Insulin aspart) 8 units (0.08 mL) subcut DAILY 30 days insulin glargine (Lantus Solostar U-100 Insulin) 40 units (0.4 mL) subcut QAM 30 days insulin lispro (Admelog U-100 Insulin lispro) 1 sliding scale dose subcut USEASDIRECTD iron sucrose (Venofer) 100 mg (5 mL) IV QWEEK 5 doses isosorbide mononitrate ER 30 mg PO DAILY 90 days lancets (Veracyteuch Delica Plus Lancet) Test bood sugar 3 times a day, As directed, 90 days miscellaneous medical supply Disposable Absorbent Pads DX: Urinary incontinence As directed, 2 per night, duration 999 days, 30 day supply montelukast 10 mg PO DAILY omeprazole 40 mg PO DAILY pen needle, diabetic As directed 4 times a day, 90 day supply polyethylene glycol 3350 (Miralax) 17 grams PO DAILY 14 days sennosides (Evac-U-Gen (sennosides)) 17.2 mg PO DAILY HPI Comments Details: 63-yr-old female presents for follow-up visit of sleep apnea. Pt reports she has not been bale to use her CPAP machine as she does not have any CPAP supplies. She continues to have difficulty staying asleep, fragmented sleep, unrefreshing sleep, parasomnias- talking, hearing someone talking to her. She endorses excessive daytime sleep. States her memory is stable. Her HST in Jul 2023 showed AHI 0.8/hr and O2 nelida 84%. and thus has not rec'd new PAP supplies. An in-lab PSG was ordered to f/u on inconclusive HST results- however this was not completed. [facility]LY [facility], LAT[facility] Medical History Sleep apnea Myocardial infarction CVA (cerebral vascular accident) Type 2 diabetes mellitus with diabetic polyneuropathy Chronic kidney disease, stage 4 (severe) Essential hypertension Hyperlipidemia LDL goal <70 Obesity due to excess calories Chronic, continuous use of opioids Chronic pain syndrome Spinal stenosis, lumbar region with neurogenic claudication Surgical History History of rotator cuff surgery History of abdominoplasty Status post breast reduction Hx of toe surgery Family History Father No problems noted. Mother Diabetes Hypertension Sister No problems noted. Sister No problems noted. Son No problems noted. Social History Household Members: Friend(s) Household Members Other:: roomate Housing: Apartment Alcohol intake: never Patient Tobacco Use Status: Former Tobacco user Tobacco use type: Cigarette Cigarette Packs Per Day: 0.5 e-Cigarette/Vaping Use: Never Used Second Hand Smoke Exposure: No Advance Directives Date on File: 07/07/20 service: No Current occupational status: disabled Current occupational exposures/hazards: No Cognitive needs: No Hearing needs: No Vision needs: No Review of Systems Const All systems reviewed & are unremarkable except as noted in HPI and below Physical Exam Vital Signs: BMI result Body Mass Index 31.3 Const General: no acute distress Orientation/consciousness: patient oriented x3 HEENT Other: Mallampati stage Resp Effort & Inspection: normal respiratory effort and able to speak in complete sentences Auscultation: clear to auscultation bilaterally Cardio Rate: regular rate Rhythm: regular rhythm Neuro General: patient oriented x3 Psych Mental Status: mental status grossly normal Speech and movement: Clear speech present Attitude: cooperative Results Reviewed Results Reviewed: PAP compliance report- see HPI Assessment & Plan Assessment & Plan (1) Excessive daytime sleepiness: Code(s): G47.19 - Other hypersomnia Category: Medical (2) JOHN on CPAP: Code(s): G47.33 - Obstructive sleep apnea (adult) (pediatric) Category: Medical (3) Difficulty sleeping: Code(s): G47.9 - Sleep disorder, unspecified Category: Medical Plan Reviewed previous HST- results did not show sleep apnea. However, pt has a h/o JOHN and feels that she sleeps better with CPAP than without CPAP. Pt advised to undergo in-lab PSG to further assess status of sleep apnea. 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 If not, we will check with the hospital to see if there are transportation services pt may be eligible for. Orders: Orders RT PSG in-lab sleep study Today G47.19 - Other hypersomnia, G47.33 - Obstructive sleep apnea (adult) (pediatric) Coding Level of Care Code Est Pt Level 3 (73046) Diagnoses Excessive daytime sleepiness G47.19 JOHN on CPAP G47.33 Difficulty sleeping G47.9 [place] Sleepiness Scale Questions Sitting and reading: high chance of dozing Watching TV: high chance of dozing Sitting inactive in a theater, movie etc.: high chance of dozing As a passenger in a car for an hour without break: high chance of dozing Lying down in the afternoon when circumstances permit: high chance of dozing Sitting and talking to someone: would never doze Sitting quietly after lunch without alcohol: high chance of dozing In a car, while stopped for a few minutes in the traffic: would never doze ESS < 10: normal, ESS > 12: pathologic: 18
[2024-04-16 13:23] VITALS: BMI 31.3
== END 2024-04-16 14:16 | disposition home or self-care (01) ==
PROVIDERS: PCP Family Medicine; Visit Provider Nurse Practitioner Family
DX: G47.19 Other hypersomnia (principal); G47.33 Obstructive sleep apnea (adult) (pediatric); G47.9 Sleep disorder, unspecified
CPT/HCPCS: 99213

== ENCOUNTER → 2024-04-16 13:12 | Outpatient (BNVA) | payer OTHER, SELFPAY | PROVIDERS: PCP Family Medicine; Visit Provider Nurse Practitioner Family | DX: G47.33 Obstructive sleep apnea (adult) (pediatric) (principal); G47.19 Other hypersomnia | CPT/HCPCS: 99212 ==

== ENCOUNTER 2024-05-16 13:35 | Outpatient (AMB) | payer OTHER, SELFPAY ==
--- NOTE | 2024-05-16 14:13 | HO.NEPHOV_ITS ---
Vital Signs 05/16/24 14:16 Height 5 ft 6 in Weight 199 lb 2 oz BMI 32.1 BP 110/60 Blood Pressure Location Lt brachial Position Sitting Pulse 84 Pulse Source Pulse Oximeter Pulse Oximetry (%) 98 Oxygen Delivery Method Room Air Intake Visit Reasons: 2 mon follow up/ Conf Mule Developer Required: No Accompanied by: Self / Same As Patient Allergies baclofen Allergy (Severe, Verified 05/16/24 14:18) can't move sulfacetamide Allergy (Severe, Verified 05/16/24 14:18) tongue swelling sulfur Allergy (Severe, Verified 05/16/24 14:18) tongue swelling HPI Comments Details: I had the delight of seeing Ms. Cutler in the office in follow-up of her chronic kidney disease, hypertension and anemia. She denies any headache, visual disturbance, nausea, vomiting, diarrhea, chest pain, shortness of breath, worsening pedal edema or urinary symptoms. She denies any uremic symptoms. She claims to have her blood sugars better . She had been getting Procrit . She denies taking any unib-mfq-lbplcep medications. She is on lipid-lowering agents. Her blood pressure is better controlled. FORMERLY [facility], [facility] Medical History Sleep apnea Myocardial infarction CVA (cerebral vascular accident) Type 2 diabetes mellitus with diabetic polyneuropathy Chronic kidney disease, stage 4 (severe) Essential hypertension Hyperlipidemia LDL goal <70 Obesity due to excess calories Chronic, continuous use of opioids Chronic pain syndrome Spinal stenosis, lumbar region with neurogenic claudication Surgical History History of rotator cuff surgery History of abdominoplasty Status post breast reduction Hx of toe surgery Family History Father No problems noted. Mother Diabetes Hypertension Sister No problems noted. Sister No problems noted. Son No problems noted. Social History Household Members: Friend(s) Household Members Other:: roomate Housing: Apartment Alcohol intake: never Patient Tobacco Use Status: Former Tobacco user Tobacco use type: Cigarette Cigarette Packs Per Day: 0.5 e-Cigarette/Vaping Use: Never Used Second Hand Smoke Exposure: No Advance Directives Date on File: 07/07/20 service: No Current occupational status: disabled Current occupational exposures/hazards: No Cognitive needs: No Hearing needs: No Vision needs: No Review of Systems Const All systems reviewed & are unremarkable except as noted in HPI and below Physical Exam Vital Signs: Last Vital Signs Pulse 84 05/16/24 14:16 BP 110/60 05/16/24 14:16 Pulse Ox 98 05/16/24 14:16 Oxygen Delivery Method Room Air 05/16/24 14:16 BMI result Body Mass Index 32.1 Const General: comfortable and no acute distress Orientation/consciousness: patient oriented x3 HEENT Head: Yes normocephalic Mouth: Normal oral and palatal mucosa present Eyes EOM: EOMs intact bilaterally Neck Neck: Yes supple Resp Auscultation: clear to auscultation bilaterally Cardio Jugular venous distension: no JVD Rate: regular rate GI Palpation (GI): Soft to palpation Auscultation: normal bowel sounds General: Yes no CVA tenderness Back/Spine/Pelvis Back: no CVA tenderness Skin General skin exam: no rashes or lesions noted Neuro General: patient oriented x3 and moves all extremities Extrem General: Yes no pedal edema Office Meds epoetin sally-epbx 10,000 unit/mL injection solution Performing Provider: Lamonte Quiroga MD Performing Location: [facility] Administered by: Lamonte Quiroga MD on 05/16/24 14:48 Dose Route Admin Location Dispensed Lot Number Expiration Date [facility] [employer] 20,000 unit subcut lue 2 mL [id number] 09/01/25 [id number] [employer] Results Reviewed Nephrology Results: Hgb 9.9 g/dl (12.0-16.0) L 03/28/24 WBC 6.9 X10*3/uL (4.8-10.8) 03/28/24 Plt Count 347 X10*3/uL (160-400) 03/28/24 Sodium 135 mmol/L (135-145) 03/28/24 Potassium 3.3 mmol/L (3.3-5.1) 03/28/24 Chloride 103 mmol/L (96-108) 03/28/24 Carbon Dioxide 22 mmol/L (22-29) 03/28/24 BUN 50 mg/dL (9-16) H 03/28/24 Creatinine 2.76 mg/dL (0.5-1.4) H 03/28/24 Calcium 8.8 mg/dL (8.4-10.2) 03/28/24 Phosphorus 3.1 mg/dL (2.7-4.5) 03/28/24 Assessment & Plan Assessment & Plan (1) Secondary hyperparathyroidism (of renal origin): Code(s): N25.81 - Secondary hyperparathyroidism of renal origin Category: Medical (2) Anemia in chronic kidney disease: Code(s): N18.9 - Chronic kidney disease, unspecified; D63.1 - Anemia in chronic kidney disease Category: Medical Qualifiers: Chronic kidney disease stage: stage 4 (severe) Qualified Code(s): N18.4 - Chronic kidney disease, stage 4 (severe); D63.1 - Anemia in chronic kidney disease (3) Chronic kidney disease, stage 4 (severe): Code(s): N18.4 - Chronic kidney disease, stage 4 (severe) Category: Medical Plan 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 She had not been tolerating ALEJO-inhibitor but is on hydralazine and Imdur. Her previous renal ultrasound had shown thinning of renal cortex. She had extensive workup done which did not show any other etiology for her CKD. She should continue on her current dose of diuretics. She should cut back sodium in the diet. She had iron deficiency and had received Venofer in the past, which I re ordered. She also had been on Procrit. I administered [id number] U of procrit in the office today. She has history of secondary hyperparathyroidism of renal origin. She had been on vitamin-D and calcitriol. She is on SGLT 2 inhibitor. All questions answered Orders: Orders Calcium Today D63.1 - Anemia in chronic kidney disease, N18.4 - Chronic kidney disease, stage 4 (severe), N25.81 - Secondary hyperparathyroidism of renal origin Creatinine Today D63.1 - Anemia in chronic kidney disease, N18.4 - Chronic kidney disease, stage 4 (severe), N25.81 - Secondary hyperparathyroidism of renal origin Complete Blood Count Auto Diff Today D63.1 - Anemia in chronic kidney disease, N18.4 - Chronic kidney disease, stage 4 (severe), N25.81 - Secondary hyperparathyroidism of renal origin AMB Epoetin Injection Practice Supplied Today D63.1 - Anemia in chronic kidney disease, N18.4 - Chronic kidney disease, stage 4 (severe) Electrolytes 2 Months D63.1 - Anemia in chronic kidney disease, N18.4 - Chronic kidney disease, stage 4 (severe), N25.81 - Secondary hyperparathyroidism of renal origin Calcium 2 Months D63.1 - Anemia in chronic kidney disease, N18.4 - Chronic ki dney disease, stage 4 (severe), N25.81 - Secondary hyperparathyroidism of renal origin Blood Urea Nitrogen 2 Months D63.1 - Anemia in chronic kidney disease, N18.4 - Chronic kidney disease, stage 4 (severe), N25.81 - Secondary hyperparathyroidism of renal origin Creatinine 2 Months D63.1 - Anemia in chronic kidney disease, N18.4 - Chronic kidney disease, stage 4 (severe), N25.81 - Secondary hyperparathyroidism of renal origin Complete Blood Count Auto Diff 2 Months D63.1 - Anemia in chronic kidney disease, N18.4 - Chronic kidney disease, stage 4 (severe), N25.81 - Secondary hyperparathyroidism of renal origin Parathyroid Hormone Intact Today D63.1 - Anemia in chronic kidney disease, N18.4 - Chronic kidney disease, stage 4 (severe), N25.81 - Secondary hyperparathyroidism of renal origin Electrolytes Today D63.1 - Anemia in chronic kidney disease, N18.4 - Chronic kidney disease, stage 4 (severe), N25.81 - Secondary hyperparathyroidism of renal origin Blood Urea Nitrogen Today D63.1 - Anemia in chronic kidney disease, N18.4 - Chronic kidney disease, stage 4 (severe), N25.81 - Secondary hyperparathyroidism of renal origin Phosphorus Today D63.1 - Anemia in chronic kidney disease, N18.4 - Chronic kidney disease, stage 4 (severe), N25.81 - Secondary hyperparathyroidism of renal origin Coding Level of Care Code Est Pt Level 4 (83641) Diagnoses Secondary hyperparathyroidism (of renal origin) N25.81 Anemia in stage 4 chronic kidney disease N18.4; D63.1 Chronic kidney disease stage: stage 4 (severe) Chronic kidney disease, stage 4 (severe) N18.4
[2024-05-16 14:16] VITALS: BP 110/60; PULSE 84; O2SAT 98; BMI 32.1
== END 2024-05-16 15:12 | disposition home or self-care (01) ==
PROVIDERS: PCP Family Medicine; Visit Provider Internal Medicine Nephrology
DX: N25.81 Secondary hyperparathyroidism of renal origin (principal); N18.4 Chronic kidney disease, stage 4 (severe); D63.1 Anemia in chronic kidney disease
CPT/HCPCS: 99214

== ENCOUNTER → 2024-05-16 13:35 | Outpatient (BNVA) | payer OTHER, SELFPAY | PROVIDERS: PCP Family Medicine; Visit Provider Internal Medicine Nephrology ==

== ENCOUNTER 2024-05-16 14:56 | Outpatient (REF) | payer OTHER, SELFPAY ==
[2024-05-16 17:25] LABS: MANUAL DIFF FLAG NO
[2024-05-16 17:39] LABS: Basophils Absolute Auto 0.1 X10*3/uL (0.0-0.2); Basophils Percent Auto 0.9 % (0-2); Eosinophils Absolute Auto 0.5 X10*3/uL (0.0-0.4); Eosinophils Percent Auto 7.8 % (0-4); Hematocrit 30.2 % (37.0-47.0); Hemoglobin 9.7 g/dl (12.0-16.0); Imm Gran Abs Auto 0.02 X10*3/uL (0.00-0.03); Imm Gran Pct Auto 0.3 % (0.0-0.4); Lymphocytes Absolute Auto 1.3 X10*3/uL (1.2-4.9); Lymphocytes Percent Auto 20.9 % (20-40); Mean Corpuscular HGB Conc 32.1 g/dl (31.0-35.0); Mean Corpuscular Hemoglobin 26.7 pg (27.0-33.0); Mean Corpuscular Volume 83.2 fL (80.0-98.0); Mean Platelet Volume 11.2 fL (9.4-12.3); Monocytes Absolute Auto 0.6 X10*3/uL (0.1-1.2); Monocytes Percent Auto 9.7 % (2-11); Neutrophils Absolute Auto 3.9 x10*3/uL (2.0-8.3); Neutrophils Percent Auto 60.4 % (45-73); Platelet Count 360 X10*3/uL (160-400); Red Blood Count 3.63 X10*6/uL (4.20-5.50); Red Cell Distribution Width 17.9 % (11.0-16.0); White Blood Count 6.4 X10*3/uL (4.8-10.8)
[2024-05-16 17:47] LABS: Anion Gap 14 (12-20); Blood Urea Nitrogen 17 mg/dL (9-16); Calcium 9.2 mg/dL (8.4-10.2); Carbon Dioxide 22 mmol/L (22-29); Chloride 108 mmol/L (96-108); Estimated Glomerular Filt Rate 23; Phosphorus 2.8 mg/dL (2.7-4.5); Sodium 141 mmol/L (135-145)
[2024-05-16 18:00] LABS: Potassium 2.8 mmol/L (3.3-5.1)
[2024-05-17 05:26] LABS: Parathyroid Hormone Intact 235.5 pg/mL (8.7-77.1)
== END 2024-05-16 14:57 | disposition home or self-care (01) ==
LOC: HO.HKASLDS 14:56
PROVIDERS: Visit Provider Internal Medicine Nephrology
DX: N25.81 Secondary hyperparathyroidism of renal origin (principal); N18.4 Chronic kidney disease, stage 4 (severe); D63.1 Anemia in chronic kidney disease
CPT/HCPCS: 36415; 80051; 82310; 82565; 83970; 84100; 84520; 85025; 96372; 99212; Q5106

== ENCOUNTER 2024-06-04 15:50 | Outpatient (AMB) | payer OTHER, SELFPAY ==
--- NOTE | 2024-06-04 15:57 | MHC.PC.OV ---
Vital Signs 06/04/24 15:59 06/04/24 16:02 Height 5 ft 6 in Weight 204 lb 2 oz BMI 32.9 BP 191/83 H 182/64 H Blood Pressure Location Rt brachial Lt radial Position Sitting Sitting Respiration 12 Pulse 79 Pulse Source Pulse Oximeter Temp 97.7 F Temp Source Temporal Artery Scan Pulse Oximetry (%) 100 Oxygen Delivery Method Room Air Intake Visit Reasons: Swollen hand possible gout. Intake Note: rt hand swelling Allergies baclofen Allergy (Severe, Verified 06/04/24 15:57) can't move sulfacetamide Allergy (Severe, Verified 06/04/24 15:57) tongue swelling sulfur Allergy (Severe, Verified 06/04/24 15:57) tongue swelling Medication List - Last Reconciled 06/04/24 by Tommie Suarez MD acetaminophen 325 mg PO Q4-6H PRN albuterol sulfate 90 mcg/actuation (Ventolin HFA) 2 puffs PO QID PRN aspirin 81 mg PO DAILY atorvastatin 40 mg PO DAILY bisacodyl 10 mg WV DAILY PRN blood sugar diagnostic (OneTouch Verio test strips) Test Blood Sugar 3 times a day As directed, 90 days blood sugar diagnostic (FreeStyle Lite Strips) USE DIRECTED TO TEST BLOOD SUGAR THREE TIMES DAILY blood-glucose meter (FreeStyle [place] Lite kit) As directed 3x/day blood-glucose meter (OneTouch Verio Flex Meter) Test Blood sugar As directed, 999 days bumetanide 0.5 mg PO DAILY 90 days bupropion HCl XL 150 mg PO QAM calcitriol 0.25 mcg PO DAILY calcitriol 0.25 mcg PO DAILY cariprazine (Vraylar) 1.5 mg PO DAILY 30 days carvedilol 12.5 mg (2 tabs) AM and 6.25 mg (1 tab) PM 90 days clopidogrel 75 mg PO DAILY 90 days dextrose 15 grams PO Q15M PRN diaper,brief,adult,disposable (Fitted Briefs Large) 3 times a day As directed, 30 days diaper,brief,adult,disposable (Comfort Shield Adult Diaper) Large. 3 times a day As directed, 90 days docusate sodium (Colace) 100 mg PO TID PRN 30 days docusate sodium (Colace) 100 mg PO BID PRN doxycycline hyclate 100 mg PO BID dulaglutide (Trulicity) 4.5 mg (0.5 mL) subcut QWEEK empagliflozin (Jardiance) 10 mg PO DAILY epoetin sally (Procrit) 2,000 units IV 3XW ergocalciferol (vitamin D2) 1,250 mcg PO QWEEK famotidine 40 mg PO DAILY 90 days fluticasone propion-salmeterol 250-50 mcg/dose (Advair Diskus) 1 ea PO BID 30 days gabapentin 100 mg PO BID glucagon mg subcut hydralazine 50 mg PO TID 30 days insulin aspart U-100 (Novolog FlexPen U-100 Insulin aspart) 8 units (0.08 mL) subcut DAILY 30 days insulin glargine (Lantus Solostar U-100 Insulin) 40 units (0.4 mL) subcut QAM 30 days insulin lispro (Admelog U-100 Insulin lispro) 1 sliding scale dose subcut USEASDIRECTD iron sucrose (Venofer) 100 mg (5 mL) IV QWEEK 5 doses isosorbide mononitrate ER 30 mg PO DAILY 90 days lancets ([employer] Delica Plus Lancet) Test bood sugar 3 times a day, As directed, 90 days miscellaneous medical supply Disposable Absorbent Pads DX: Urinary incontinence As directed, 2 per night, duration 999 days, 30 day supply montelukast 10 mg PO DAILY pantoprazole 40 mg PO DAILY 30 days pen needle, diabetic As directed 4 times a day, 100 day supply polyethylene glycol 3350 (Miralax) 17 grams PO DAILY 14 days potassium chloride ER 20 mEq PO DAILY sennosides (Evac-U-Gen (sennosides)) 17.2 mg PO DAILY Tobacco use date assessed: 04/09/24 Dental Screening Dental Screen Date: 01/12/24 HPI Swollen hand possible gout. HPI Details 63 y/o female presents with complaints of R hand swelling, ? gout. They report symptoms started last Monday and nurse had also reported some weight gain and LE edema. They report swelling is painful. She notes last time she was treated for gout was 2 months ago. She denies any fevers/chills. HPI Comments History of Present Illness Details Documentation assistance for Tommie Suarez MD, was provided by Sanjiv Nguyen,? Patient Navigator on 06/04/2024 at 4:13 PM I, Dr. Suarez, have read, observed, and verified documentation. [facility] Medical History (Reviewed 01/12/24 @ 12:52 by Kamryn Armenta [facility]) Sleep apnea Myocardial infarction CVA (cerebral vascular accident) Type 2 diabetes mellitus with diabetic polyneuropathy Chronic kidney disease, stage 4 (severe) Essential hypertension Hyperlipidemia LDL goal <70 Obesity due to excess calories Chronic, continuous use of opioids Chronic pain syndrome Spinal stenosis, lumbar region with neurogenic claudication Surgical History History of rotator cuff surgery History of abdominoplasty Status post breast reduction Hx of toe surgery Family History Father No problems noted. Mother Diabetes Hypertension Sister No problems noted. Sister No problems noted. Son No problems noted. Social History Household Members: Friend(s) Household Members Other:: roomate Housing: Apartment Alcohol intake: never Patient Tobacco Use Status: Former Tobacco user Tobacco use type: Cigarette Cigarette Packs Per Day: 0.5 e-Cigarette/Vaping Use: Never Used Second Hand Smoke Exposure: No Advance Directives Date on File: 07/07/20 service: No Current occupational status: disabled Current occupational exposures/hazards: No Cognitive needs: No Hearing needs: No Vision needs: No Questionnaire Thrive Questionnaire Date Thrive assessed: 01/12/24 BRITT-7 AMB Questionnaire BRITT-7 Date BRITT - 7 assessed: 01/12/24 Source: Developed by Drs. Andre Hilario, Kasey Patel, Jose Rausch and colleagues, with an educational micha from [employer]. Review of Systems Const Denies chills, Denies fatigue, Denies fever(s), Denies headache(s) and Denies weakness ENT Denies dizziness and Denies headache(s) Card Denies dyspnea Resp Denies cough, Denies dyspnea, Denies wheezing and Denies other (shortness of breath) Musc Details: R hand swelling Denies numbness and Denies tingling Neuro Denies dizziness, Denies headache(s), Denies numbness, Denies tingling and Denies weakness Psych Denies anxiety and Denies depression Endo Denies fatigue Aller/Immun Denies wheezing Physical exam (Primary Care) Vital Signs: Last Vital Signs Temp 97.7 F 06/04/24 15:59 Pulse 79 06/04/24 15:59 Resp 12 06/04/24 15:59 BP 182/64 H 06/04/24 16:02 Pulse Ox 100 06/04/24 15:59 Oxygen Delivery Method Room Air 06/04/24 15:59 BMI result Body Mass Index 32.9 Tobacco/Smoking Status: Tobacco use Status Tobacco use date assessed 04/09/24 06/04/24 15:58 Patient Tobacco Use Status Former Tobacco user 06/04/24 15:58 Tobacco use type Cigarette 06/04/24 15:58 e-Cigarette/Vaping Use Never Used 06/04/24 15:58 Thrive Assessment: Date of Thrive Assessment Date Thrive assessed 01/12/24 06/04/24 15:58 Const General: well developed; No acute distress Nutritional Appearance: well nourished Orientation/consciousness: patient oriented x3 HENMT Head: Yes normocephalic and Yes atraumatic Eyes General: appearance normal, both eyes and all related structures Pupils: Equal, round and reactive pupils present EOM: EOMs intact bilaterally Resp Effort & Inspection: normal respiratory effort Auscultation: clear to auscultation bilaterally Cardio Rate: regular rate Rhythm: regular rhythm Heart sounds: S1 normal heart sound present, S2 normal heart sound present, no gallops, no murmurs and no rubs Neuro General: patient oriented x3 and gait normal Cranial nerves: Yes Equal, round and reactive pupils present Extrem Other: R hand swelling with tenderness and warmth Psych Affect: normal affect Assessment and Plan Assessment & Plan (1) Swelling of right hand: Code(s): M79.89 - Other specified soft tissue disorders Plan: Pain and?swelling?of?right?hand?with?mi?erythema?and?warmth. Denies?fevers?or?chills Had?ordered?CBC?to?check?white?count?and?also?uric?acid?level. Patient's?nurse?did?not?receive?lab?fax?so?I?do?not?have?this?information. Elevate?hand Will?send?script?for?prednisone?and?also?cephalexin. She?will?get?her?labs?drawn?as?soon?as?she?can?which?is?likely??and?we?will?follow-up?by?telemedicine?on?Monday. (2) CHF (congestive heart failure): Code(s): I50.9 - Heart failure, unspecified Plan: Patient?had?swelling?of?bilateral?lower?extremities?and?also?weight?gain Has?history?of?CHF I?had?increased?her?bumetanide?over?the?weekend?and?she?notes?that?these?symptoms?have?resolved. Lungs?are?clear to?auscultation?bilaterally This?appears?to?have?resolved Continue?to?watch?weight?and?watch?for?lower?extremity?edema?as?well?as?any?shortness?of?breath. Avoid?salt/sodium Continue?bumetanide?at?previously?prescribed?dose (3) Swelling of lower extremity: Code(s): M79.89 - Other specified soft tissue disorders Plan: As?above Medications: New prednisone 40 mg (2 x 20 mg) PO DAILY 5 days 10 tabs 0RF cephalexin 500 mg PO Q12H 10 days 20 caps 0RF Discontinued bumetanide Discontinued Reason: By Stop Date 1 mg PO DAILY 4 days 4 tabs 0RF Coding Level of Care Code Est Pt Level 3 (52874) Diagnoses Swelling of right hand M79.89 CHF (congestive heart failure) I50.9 Swelling of lower extremity M79.89
[2024-06-04 15:59] VITALS: BP 191/83; PULSE 79; RESP 12; TEMP 36.5; O2SAT 100; BMI 32.9
[2024-06-04 16:02] VITALS: BP 182/64
== END 2024-06-04 16:17 | disposition home or self-care (01) ==
LOC: HO.HMGFM 15:50
PROVIDERS: PCP Family Medicine; Visit Provider Family Medicine
DX: M79.89 Other specified soft tissue disorders (principal); I50.9 Heart failure, unspecified
CPT/HCPCS: 99213

== ENCOUNTER 2024-06-06 09:40 | Outpatient (REF) | payer OTHER, SELFPAY ==
[2024-06-06 11:18] LABS: MANUAL DIFF FLAG NO
[2024-06-06 11:35] LABS: B Type Natriuretic Peptide 312 pg/mL (<100)
[2024-06-06 11:37] LABS: Basophils Absolute Auto 0.1 X10*3/uL (0.0-0.2); Basophils Percent Auto 0.8 % (0-2); Eosinophils Absolute Auto 0.4 X10*3/uL (0.0-0.4); Eosinophils Percent Auto 6.7 % (0-4); Hematocrit 30.2 % (37.0-47.0); Hemoglobin 9.7 g/dl (12.0-16.0); Imm Gran Abs Auto 0.02 X10*3/uL (0.00-0.03); Imm Gran Pct Auto 0.3 % (0.0-0.4); Lymphocytes Absolute Auto 1.3 X10*3/uL (1.2-4.9); Lymphocytes Percent Auto 20.8 % (20-40); Mean Corpuscular HGB Conc 32.1 g/dl (31.0-35.0); Mean Corpuscular Hemoglobin 26.9 pg (27.0-33.0); Mean Corpuscular Volume 83.7 fL (80.0-98.0); Mean Platelet Volume 11.9 fL (9.4-12.3); Monocytes Absolute Auto 0.6 X10*3/uL (0.1-1.2); Monocytes Percent Auto 10.1 % (2-11); Neutrophils Absolute Auto 3.8 x10*3/uL (2.0-8.3); Neutrophils Percent Auto 61.3 % (45-73); Platelet Count 371 X10*3/uL (160-400); Red Blood Count 3.61 X10*6/uL (4.20-5.50); Red Cell Distribution Width 16.9 % (11.0-16.0); White Blood Count 6.2 X10*3/uL (4.8-10.8)
[2024-06-06 12:36] LABS: Alanine Aminotransferase 13 U/L (0-31); Alkaline Phosphatase 121 U/L (39-117); Anion Gap 15 (12-20); Aspartate Amino Transferase 15 U/L (5-31); Bilirubin Total 0.4 mg/dL (0.0-1.0); Blood Urea Nitrogen 16 mg/dL (9-16); Calcium 8.4 mg/dL (8.4-10.2); Carbon Dioxide 23 mmol/L (22-29); Chloride 104 mmol/L (96-108); Estimated Glomerular Filt Rate 20; Glucose Random 321 mg/dL (60-115); Potassium 2.6 mmol/L (3.3-5.1); Sodium 139 mmol/L (135-145); Total Protein 6.7 g/dL (6.5-8.0); Uric Acid 9.6 mg/dL (2.4-5.7)
== END 2024-06-06 09:41 | disposition home or self-care (01) ==
LOC: HO.WFDLDS 09:40
PROVIDERS: Visit Provider Family Medicine
DX: Z00.00 Encounter for general adult medical examination without abnormal findings (principal); M25.532 Pain in left wrist; M25.432 Effusion, left wrist; I50.9 Heart failure, unspecified
CPT/HCPCS: 36415; 80053; 83880; 84550; 85025

== ENCOUNTER 2024-06-19 14:32 | Outpatient (AMB) | payer OTHER, SELFPAY ==
--- NOTE | 2024-06-19 14:49 | A.OFFPC_ITS ---
Vital Signs 06/19/24 14:51 Height 5 ft 6 in Weight 196 lb 2 oz BMI 31.7 BP 120/56 L Blood Pressure Location Lt brachial Position Sitting Respiration 14 Pulse 82 Pulse Source Pulse Oximeter Temp 97.9 F Temp Source Tympanic Pulse Oximetry (%) 98 Oxygen Delivery Method Room Air Intake Visit Reasons: TCM /diabetes Intake Note: tcm low potassium Allergies baclofen Allergy (Severe, Verified 06/19/24 14:50) can't move sulfacetamide Allergy (Severe, Verified 06/19/24 14:50) tongue swelling sulfur Allergy (Severe, Verified 06/19/24 14:50) tongue swelling Tobacco use date assessed: 04/09/24 Dental Screening Dental Screen Date: 01/12/24 HPI TCM /diabetes HPI Details 63 y/o female presents to [facility]. Admitted 06/09, discharged 06/11 for hypokalemia. Potassium found to be 2.6. EKG showed non specific T wave changes. Chest imaging did show mild fluid overload. Was given increase bumex and mild potassium replacement. On discharge advised take increased bumex x3 days then resume normal dosing. Has an appt. with nephrology in July. TCM TCM Information Date of Discharge 06/11/24 Discharged From Other ([facility] ) Interactive Contact Date (Reference documentation from this date) 06/19/24 [facility] Medical History Sleep apnea Myocardial infarction CVA (cerebral vascular accident) Type 2 diabetes mellitus with diabetic polyneuropathy Chronic kidney disease, stage 4 (severe) Essential hypertension Hyperlipidemia LDL goal <70 Obesity due to excess calories Chronic, continuous use of opioids Chronic pain syndrome Spinal stenosis, lumbar region with neurogenic claudication Surgical History History of rotator cuff surgery History of abdominoplasty Status post breast reduction Hx of toe surgery Family History Father No problems noted. Mother Diabetes Hypertension Sister No problems noted. Sister No problems noted. Son No problems noted. Social History Household Members: Friend(s) Household Members Other:: roomate Housing: Apartment Alcohol intake: never Patient Tobacco Use Status: Former Tobacco user Tobacco use type: Cigarette Cigarette Packs Per Day: 0.5 e-Cigarette/Vaping Use: Never Used Second Hand Smoke Exposure: No Advance Directives Date on File: 07/07/20 service: No Current occupational status: disabled Current occupational exposures/hazards: No Cognitive needs: No Hearing needs: No Vision needs: No Questionnaire Thrive Questionnaire Date Thrive assessed: 01/12/24 BRITT-7 AMB Questionnaire BRITT-7 Date BRITT - 7 assessed: 01/12/24 Source: Developed by Drs. Andre Hilario, Kasey Patel, Jose Rausch and colleagues, with an educational micha from [employer]. Review of Systems Const Denies chills, Denies fatigue, Denies fever(s), Denies headache(s) and Denies weakness ENT Denies dizziness and Denies headache(s) Card Denies dyspnea Resp Denies cough, Denies dyspnea, Denies wheezing and Denies other (shortness of breath) Musc Denies numbness and Denies tingling Neuro Denies dizziness, Denies headache(s), Denies numbness, Denies tingling and Denies weakness Psych Denies anxiety and Denies depression Endo Denies fatigue Aller/Immun Denies wheezing Physical exam (Primary Care) Vital Signs: Last Vital Signs Temp 97.9 F 06/19/24 14:51 Pulse 82 06/19/24 14:51 Resp 14 06/19/24 14:51 BP 120/56 L 06/19/24 14:51 Pulse Ox 98 06/19/24 14:51 Oxygen Delivery Method Room Air 06/19/24 14:51 BMI result Body Mass Index 31.7 Tobacco/Smoking Status: Tobacco use Status Tobacco use date assessed 04/09/24 06/19/24 14:54 Patient Tobacco Use Status Former Tobacco user 06/19/24 14:54 Tobacco use type Cigarette 06/19/24 14:54 e-Cigarette/Vaping Use Never Used 06/19/24 14:54 Thrive Assessment: Date of Thrive Assessment Date Thrive assessed 01/12/24 06/19/24 14:54 Const General: well developed; No acute distress Nutritional Appearance: well nourished Orientation/consciousness: patient oriented x3 HENMT Head: Yes normocephalic and Yes atraumatic Eyes General: appearance normal, both eyes and all related structures Pupils: Equal, round and reactive pupils present EOM: EOMs intact bilaterally Resp Effort & Inspection: normal respiratory effort Neuro General: patient oriented x3 and gait normal Cranial nerves: Yes Equal, round and reactive pupils present Psych Affect: normal affect Assessment and Plan Assessment & Plan (1) Hypokalemia: Code(s): E87.6 - Hypokalemia Plan: Patient?was?sent?to?the?ED?for?hypokalemia. EKG?did?so?nonspecific?T-wave?changes. Chest?imaging?did?show?mild?fluid?overload She?was?given?increased?Bumex?and?mild?potassium?replacement. On?discharge?advised? to?take?increase?Bumex?times?3?days?then?resume?normal?Bumex?dosing. Will?check?renal?function,?potassium?level?and?also?BNP. Patient?is?breathing?easily?today Orders: Orders Basic Metabolic Panel Today E87.6 - Hypokalemia, Z00.00 - Encounter for general adult medical examination without abnormal findings B Type Natriuretic Peptide Today I50.9 - Heart failure, unspecified Coding Level of Care Code TCM High MDM <= 14 days Diagnoses Hypokalemia E87.6
[2024-06-19 14:51] VITALS: BP 120/56; PULSE 82; RESP 14; TEMP 36.6; O2SAT 98; BMI 31.7
== END 2024-06-19 16:28 | disposition home or self-care (01) ==
PROVIDERS: PCP Family Medicine; Visit Provider Family Medicine
DX: E87.6 Hypokalemia (principal)

== ENCOUNTER → 2024-06-19 14:32 | Outpatient (BNVA) | payer OTHER, SELFPAY | PROVIDERS: PCP Family Medicine; Visit Provider Family Medicine ==

== ENCOUNTER 2024-06-19 15:39 | Outpatient (REF) | payer OTHER, SELFPAY ==
[2024-06-19 18:17] LABS: Anion Gap 15 (12-20); Blood Urea Nitrogen 20 mg/dL (9-16); Calcium 9.5 mg/dL (8.4-10.2); Carbon Dioxide 23 mmol/L (22-29); Chloride 106 mmol/L (96-108); Estimated Glomerular Filt Rate 20; Glucose Random 209 mg/dL (60-115); Potassium 3.6 mmol/L (3.3-5.1); Sodium 140 mmol/L (135-145); Uric Acid 9.1 mg/dL (2.4-5.7)
[2024-06-19 18:21] LABS: B Type Natriuretic Peptide 417 pg/mL (<100)
== END 2024-06-19 15:40 | disposition home or self-care (01) ==
LOC: HO.WFDLDS 15:39
PROVIDERS: Visit Provider Family Medicine
DX: Z00.00 Encounter for general adult medical examination without abnormal findings (principal); E87.6 Hypokalemia; I50.9 Heart failure, unspecified; E11.9 Type 2 diabetes mellitus without complications; I10 Essential (primary) hypertension
CPT/HCPCS: 36415; 80048; 83880; 84550; 99212

== ENCOUNTER 2024-07-02 15:11 | Outpatient (AMB) | payer OTHER, SELFPAY ==
--- NOTE | 2024-07-02 15:47 | MHC.PC.OV ---
Vital Signs 07/02/24 15:51 Height 5 ft 6 in Weight 196 lb 6 oz BMI 31.7 BP 129/57 L Blood Pressure Location Rt brachial Position Sitting Respiration 16 Pulse 87 Pulse Source Pulse Oximeter Temp 98.0 F Temp Source Oral Pulse Oximetry (%) 98 Oxygen Delivery Method Room Air Intake Visit Reasons: f/u diabetes, htn, hypokalemia Intake Note: f/u for dm htn and hypokalemia last a1c 9.2 jun 09 2024 Allergies baclofen Allergy (Severe, Verified 07/02/24 15:49) can't move sulfacetamide Allergy (Severe, Verified 07/02/24 15:49) tongue swelling sulfur Allergy (Severe, Verified 07/02/24 15:49) tongue swelling Tobacco use date assessed: 04/09/24 Dental Screening Dental Screen Date: 01/12/24 HPI f/u diabetes, htn, hypokalemia HPI Details 63 y/o female presents to f/u diabetes, hypertension, hypokalemia. Labs drawn 06/19/24. Reviewed labs with pt. Potassium 3.6 and improved from 2.6. Uric acid 9.1. Blood pressure today 129/57, 87p. She is on carvedilol and hydralazine. They note blood pressure at home have been running high. Reports blood sugars in the 100s-130s during the day. Has recorded a 69 before. A1c today 07/02/24 9.2%. HPI Comments History of Present Illness Details Documentation assistance for Tommie Suarez MD, was provided by Sanjiv Nguyen, Nuclear Power Plant Engineer on 07/02/2024 at 4:33 PM EST. I, Dr. Suarez, have read, observed, and verified documentation. [facility] Medical History Sleep apnea Myocardial infarction CVA (cerebral vascular accident) Type 2 diabetes mellitus with diabetic polyneuropathy Chronic kidney disease, stage 4 (severe) Essential hypertension Hyperlipidemia LDL goal <70 Obesity due to excess calories Chronic, continuous use of opioids Chronic pain syndrome Spinal stenosis, lumbar region with neurogenic claudication Surgical History History of rotator cuff surgery History of abdominoplasty Status post breast reduction Hx of toe surgery Family History Father No problems noted. Mother Diabetes Hypertension Sister No problems noted. Sister No problems noted. Son No problems noted. Social History Household Members: Friend(s) Household Members Other:: roomate Housing: Apartment Alcohol intake: never Patient Tobacco Use Status: Former Tobacco user Tobacco use type: Cigarette Cigarette Packs Per Day: 0.5 e-Cigarette/Vaping Use: Never Used Second Hand Smoke Exposure: No Advance Directives Date on File: 07/07/20 service: No Current occupational status: disabled Current occupational exposures/hazards: No Cognitive needs: No Hearing needs: No Vision needs: No Questionnaire Thrive Questionnaire Date Thrive assessed: 01/12/24 BRITT-7 AMB Questionnaire BRITT-7 Date BRITT - 7 assessed: 01/12/24 Source: Developed by Drs. Andre Hilario, Kasey Patel, Jose Rausch and colleagues, with an educational micha from [employer]. Review of Systems Const Denies chills, Denies fatigue, Denies fever(s), Denies headache(s) and Denies weakness ENT Denies dizziness and Denies headache(s) Card Denies dyspnea Resp Denies cough, Denies dyspnea, Denies wheezing and Denies other (shortness of breath) Musc Denies numbness and Denies tingling Neuro Denies dizziness, Denies headache(s), Denies numbness, Denies tingling and Denies weakness Psych Denies anxiety and Denies depression Endo Denies fatigue Aller/Immun Denies wheezing Physical exam (Primary Care) Vital Signs: Last Vital Signs Temp 98.0 F 07/02/24 15:51 Pulse 87 07/02/24 15:51 Resp 16 07/02/24 15:51 BP 129/57 L 07/02/24 15:51 Pulse Ox 98 07/02/24 15:51 Oxygen Delivery Method Room Air 07/02/24 15:51 BMI result Body Mass Index 31.7 Tobacco/Smoking Status: Tobacco use Status Tobacco use date assessed 04/09/24 07/02/24 15:55 Patient Tobacco Use Status Former Tobacco user 07/02/24 15:55 Tobacco use type Cigarette 07/02/24 15:55 e-Cigarette/Vaping Use Never Used 07/02/24 15:55 Thrive Assessment: Date of Thrive Assessment Date Thrive assessed 01/12/24 07/02/24 15:55 Const General: well developed; No acute distress Nutritional Appearance: well nourished Orientation/consciousness: patient oriented x3 HENMT Head: Yes normocephalic and Yes atraumatic Eyes General: appearance normal, both eyes and all related structures Pupils: Equal, round and reactive pupils present EOM: EOMs intact bilaterally Resp Effort & Inspection: normal respiratory effort Neuro General: patient oriented x3 and gait normal Cranial nerves: Yes Equal, round and reactive pupils present Psych Affect: normal affect Coding Level of Care Code Est Pt Level 4 (82957) Diagnoses Type 2 diabetes mellitus with stage 4 chronic kidney disease, with long-term current use of insulin E11.22; N18.4; Z79.4 Chronic kidney disease stage: stage 4 (severe) 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 Still?getting?some?low?blood?sugars?down?to?around?69 Advised?her?to?contact?her?mixing technician?for?a?soon?appointment No?medication?changes?were?made?today (2) Essential hypertension: Code(s): I10 - Essential (primary) hypertension Category: Medical Plan: Blood?pressure?at?home?is?up?to?160?and?170?systolic Increasing?her?carvedilol; 25?mg?a.m.?and?6.25?mg?pm (3) Hypokalemia: Code(s): E87.6 - Hypokalemia Category: Medical Plan: Patient?did?not?get?her?labs?done?but?will?do?so?this?week Will?follow-up?at?next?appointment.??Will?call?her?if?action?is?required?sooner Orders: Referrals Cardiology Referral I50.9 - Heart failure, unspecified Medications: New carvedilol 25mg AM and 6.25mg PM 25 mg PO QAM 90 days 90 tabs 0RF Changed From carvedilol 12.5 mg (2 tabs) AM and 6.25 mg (1 tab) PM 90 days 270 tabs 3RF To carvedilol orally daily; 25mg AM and 6.25mg PM 90 days 90 tabs 3RF Refilled allopurinol 100 mg PO DAILY 30 days 30 tabs 2RF
[2024-07-02 15:51] VITALS: BP 129/57; PULSE 87; RESP 16; TEMP 36.7; O2SAT 98; BMI 31.7
== END 2024-07-02 16:35 | disposition home or self-care (01) ==
PROVIDERS: PCP Family Medicine; Visit Provider Family Medicine
DX: E11.22 Type 2 diabetes mellitus with diabetic chronic kidney disease (principal); N18.4 Chronic kidney disease, stage 4 (severe); Z79.4 Long term (current) use of insulin; I12.9 Hypertensive chronic kidney disease with stage 1 through stage 4 chronic kidney disease, or unspecified chronic kidney disease; E87.6 Hypokalemia

== ENCOUNTER → 2024-07-02 15:11 | Outpatient (BNVA) | payer OTHER, SELFPAY | PROVIDERS: PCP Family Medicine; Visit Provider Family Medicine | DX: I12.9 Hypertensive chronic kidney disease with stage 1 through stage 4 chronic kidney disease, or unspecified chronic kidney disease (principal); E11.22 Type 2 diabetes mellitus with diabetic chronic kidney disease; N18.4 Chronic kidney disease, stage 4 (severe); E87.6 Hypokalemia; Z79.4 Long term (current) use of insulin | CPT/HCPCS: 99212 ==

== ENCOUNTER 2024-07-09 09:55 | Outpatient (REF) | payer OTHER, SELFPAY ==
[2024-07-09 10:47] LABS: MANUAL DIFF FLAG NO
[2024-07-09 11:05] LABS: Basophils Absolute Auto 0.1 X10*3/uL (0.0-0.2); Basophils Percent Auto 0.7 % (0-2); Eosinophils Absolute Auto 0.4 X10*3/uL (0.0-0.4); Eosinophils Percent Auto 5.1 % (0-4); Hematocrit 32.2 % (37.0-47.0); Imm Gran Abs Auto 0.05 X10*3/uL (0.00-0.03); Imm Gran Pct Auto 0.7 % (0.0-0.4); Lymphocytes Absolute Auto 1.2 X10*3/uL (1.2-4.9); Lymphocytes Percent Auto 15.6 % (20-40); Mean Corpuscular HGB Conc 31.1 g/dl (31.0-35.0); Mean Corpuscular Hemoglobin 26.5 pg (27.0-33.0); Mean Corpuscular Volume 85.4 fL (80.0-98.0); Mean Platelet Volume 11.1 fL (9.4-12.3); Monocytes Absolute Auto 0.7 X10*3/uL (0.1-1.2); Monocytes Percent Auto 8.9 % (2-11); Neutrophils Absolute Auto 5.1 x10*3/uL (2.0-8.3); Platelet Count 400 X10*3/uL (160-400); Red Blood Count 3.77 X10*6/uL (4.20-5.50); Red Cell Distribution Width 16.1 % (11.0-16.0); White Blood Count 7.4 X10*3/uL (4.8-10.8)
[2024-07-09 11:23] LABS: Anion Gap 13 (12-20); Blood Urea Nitrogen 25 mg/dL (9-16); Calcium 9.1 mg/dL (8.4-10.2); Carbon Dioxide 23 mmol/L (22-29); Chloride 105 mmol/L (96-108); Estimated Glomerular Filt Rate 18; Phosphorus 3.5 mg/dL (2.7-4.5); Potassium 3.8 mmol/L (3.3-5.1); Sodium 137 mmol/L (135-145)
[2024-07-09 11:27] LABS: Parathyroid Hormone Intact 293.6 pg/mL (8.7-77.1)
[2024-07-09 11:38] LABS: Uric Acid 7.7 mg/dL (2.4-5.7)
== END 2024-07-09 09:56 | disposition home or self-care (01) ==
LOC: HO.WFDLDS 09:55
PROVIDERS: Referring Provider Family Medicine; Visit Provider Internal Medicine Nephrology
DX: N25.81 Secondary hyperparathyroidism of renal origin (principal); I12.9 Hypertensive chronic kidney disease with stage 1 through stage 4 chronic kidney disease, or unspecified chronic kidney disease; D63.1 Anemia in chronic kidney disease; N18.9 Chronic kidney disease, unspecified; N18.4 Chronic kidney disease, stage 4 (severe); M25.532 Pain in left wrist; M79.89 Other specified soft tissue disorders; M25.432 Effusion, left wrist
CPT/HCPCS: 36415; 80051; 82310; 82565; 83970; 84100; 84520; 84550; 85025

== ENCOUNTER 2024-07-11 13:30 | Outpatient (RCR) | payer OTHER, SELFPAY ==
[2024-06-06 12:50] VITALS: BP 165/66; PULSE 86; RESP 16; TEMP 37.4; O2SAT 98
[2024-06-06] MEDS: Iron Sucrose Complex 200 MG in 0.9 % Sodium Chloride 100 ML 440 MG IV (12:57)
[2024-06-13 12:43] VITALS: BP 175/60; PULSE 98; RESP 20; TEMP 37.1; O2SAT 97
[2024-06-13] MEDS: Iron Sucrose Complex 200 MG in 0.9 % Sodium Chloride 100 ML 440 MG IV (12:54)
[2024-06-20 13:29] VITALS: BP 172/73; PULSE 94; RESP 16; TEMP 37.2; O2SAT 99
[2024-06-20] MEDS: Iron Sucrose Complex 200 MG in 0.9 % Sodium Chloride 100 ML 440 MG IV (13:37)
[2024-06-27 13:22] VITALS: BP 142/77; PULSE 84; RESP 16; TEMP 36.8; O2SAT 99
[2024-06-27] MEDS: Iron Sucrose Complex 200 MG in 0.9 % Sodium Chloride 100 ML 440 MG IV (13:31)
[2024-07-11 13:20] VITALS: BP 192/77; PULSE 86; RESP 18; TEMP 36.3
[2024-07-11] MEDS: Iron Sucrose Complex 200 MG in 0.9 % Sodium Chloride 100 ML 440 MG IV (13:26)
[2024-07-11 13:42] VITALS: BP 157/75; PULSE 84
== END 2024-07-11 13:44 | disposition home or self-care (01) ==
LOC: HO.INF 13:30
PROVIDERS: Visit Provider Internal Medicine Nephrology
DX: E61.1 Iron deficiency (principal)
CPT/HCPCS: 96365; 96374; J1756

== ENCOUNTER 2024-07-16 15:26 | Outpatient (AMB) | payer OTHER, SELFPAY ==
[2024-07-16 15:43] VITALS: BP 126/70; PULSE 83; O2SAT 97; BMI 31.3
--- NOTE | 2024-07-16 15:43 | HO.NEPHOV ---
Vital Signs 07/16/24 15:43 Height 5 ft 6 in Weight 194 lb BMI 31.3 BP 126/70 Blood Pressure Location Rt brachial Position Sitting Pulse 83 Pulse Source Pulse Oximeter Pulse Oximetry (%) 97 Oxygen Delivery Method Room Air Intake Visit Reasons: 2 mo fu/ Conf Geneticist Required: No Accompanied by: Self / Same As Patient Allergies baclofen Allergy (Severe, Verified 07/16/24 15:45) can't move sulfacetamide Allergy (Severe, Verified 07/16/24 15:45) tongue swelling sulfur Allergy (Severe, Verified 07/16/24 15:45) tongue swelling HPI Comments Details: Ms. Cutler was seen in the office in follow-up of her chronic kidney disease, hypertension and anemia. She denies any headache, visual disturbance, nausea, vomiting, diarrhea, chest pain, shortness of breath, worsening pedal edema or urinary symptoms. She denies any uremic symptoms. She claims to have her blood sugars better . She had been getting Procrit . She denies taking any ywnp-hfn-dyzauyo medications. She is on lipid-lowering agents. Her blood pressure is better controlled. [facility] Medical History Sleep apnea Myocardial infarction CVA (cerebral vascular accident) Type 2 diabetes mellitus with diabetic polyneuropathy Chronic kidney disease, stage 4 (severe) Essential hypertension Hyperlipidemia LDL goal <70 Obesity due to excess calories Chronic, continuous use of opioids Chronic pain syndrome Spinal stenosis, lumbar region with neurogenic claudication Surgical History History of rotator cuff surgery History of abdominoplasty Status post breast reduction Hx of toe surgery Family History Father No problems noted. Mother Diabetes Hypertension Sister No problems noted. Sister No problems noted. Son No problems noted. Social History Household Members: Friend(s) Household Members Other:: roomate Housing: Apartment Alcohol intake: never Patient Tobacco Use Status: Former Tobacco user Tobacco use type: Cigarette Cigarette Packs Per Day: 0.5 e-Cigarette/Vaping Use: Never Used Second Hand Smoke Exposure: No Advance Directives Date on File: 10/06/20 service: No Current occupational status: disabled Current occupational exposures/hazards: No Cognitive needs: No Hearing needs: No Vision needs: No Review of Systems Const All systems reviewed & are unremarkable except as noted in HPI and below Physical Exam Vital Signs: Last Vital Signs Pulse 83 07/16/24 15:43 BP 126/70 07/16/24 15:43 Pulse Ox 97 07/16/24 15:43 Oxygen Delivery Method Room Air 07/16/24 15:43 BMI result Body Mass Index 31.3 Const General: comfortable and no acute distress Orientation/consciousness: patient oriented x3 HEENT Head: Yes normocephalic Mouth: Normal oral and palatal mucosa present Eyes EOM: EOMs intact bilaterally Neck Neck: Yes supple Resp Auscultation: clear to auscultation bilaterally Cardio Jugular venous distension: no JVD Rate: regular rate GI Palpation (GI): Soft to palpation Auscultation: normal bowel sounds General: Yes no CVA tenderness Back/Spine/Pelvis Back: no CVA tenderness Skin General skin exam: no rashes or lesions noted Neuro General: patient oriented x3 and moves all extremities Extrem General: Yes no pedal edema Office Meds epoetin sally-epbx 10,000 unit/mL injection solution Performing Provider: Lamonte Quiroga MD Performing Location: [facility] [place] [facility] Administered by: Lamonte Quiroga MD on 07/16/24 16:13 Dose Route Admin Location Dispensed Lot Number Expiration Date [facility] Veterinary Medicine Teacher 20,000 unit subcut 2 mL [id number] 01/30/26 9822-3203-02 [employer] Results Reviewed Nephrology Results: Hgb 10.0 g/dl (12.0-16.0) L 07/09/24 WBC 7.4 X10*3/uL (4.8-10.8) 07/09/24 Plt Count 400 X10*3/uL (160-400) 07/09/24 Sodium 137 mmol/L (135-145) 07/09/24 Potassium 3.8 mmol/L (3.3-5.1) 07/09/24 Chloride 105 mmol/L (96-108) 07/09/24 Carbon Dioxide 23 mmol/L (22-29) 07/09/24 BUN 25 mg/dL (9-16) H 07/09/24 Creatinine 2.70 mg/dL (0.5-1.4) H 07/09/24 Calcium 9.1 mg/dL (8.4-10.2) 07/09/24 Phosphorus 3.5 mg/dL (2.7-4.5) 07/09/24 PTH Intact 293.6 pg/mL (8.7-77.1) H 07/09/24 Assessment & Plan Assessment & Plan (1) Secondary hyperparathyroidism (of renal origin): Code(s): N25.81 - Secondary hyperparathyroidism of renal origin Category: Medical (2) Anemia in chronic kidney disease: Code(s): N18.9 - Chronic kidney disease, unspecified; D63.1 - Anemia in chronic kidney disease Category: Medical Qualifiers: Chronic kidney disease stage: stage 4 (severe) Qualified Code(s): N18.4 - Chronic kidney disease, stage 4 (severe); D63.1 - Anemia in chronic kidney disease (3) Chronic kidney disease, stage 4 (severe): Code(s): N18.4 - Chronic kidney disease, stage 4 (severe) Category: Medical (4) Essential hypertension: Code(s): I10 - Essential (primary) hypertension Category: Medical Plan 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 She had not been tolerating ALEJO-inhibitor but is on hydralazine and Imdur. Her previous renal ultrasound had shown thinning of renal cortex. She had extensive workup done which did not show any other etiology for her CKD. I reduced her Bumex to every other day. She should cut back sodium in the diet. She had iron deficiency and had received Venofer . She also had been on Procrit. I administered [id number] U of procrit in the office today. She has history of secondary hyperparathyroidism of renal origin. She had been on vitamin-D and calcitriol. She is on SGLT 2 inhibitor. All questions answered Orders: Orders Complete Blood Count Auto Diff 2 Months D63.1 - Anemia in chronic kidney disease, N18.4 - Chronic kidney disease, stage 4 (severe), N25.81 - Secondary hyperparathyroidism of renal origin Blood Urea Nitrogen 2 Months D63.1 - Anemia in chronic kidney disease, N18.4 - Chronic kidney disease, stage 4 (severe), N25.81 - Secondary hyperparathyroidism of renal origin Calcium 2 Months D63.1 - Anemia in chronic kidney disease, N18.4 - Chronic kidney disease, stage 4 (severe), N25.81 - Secondary hyperparathyroidism of renal origin AMB Epoetin Injection Practice Supplied Today D63.1 - Anemia in chronic kidney disease, N18.4 - Chronic kidney disease, stage 4 (severe) Creatinine 2 Months D63.1 - Anemia in chronic kidney disease, N18.4 - Chronic kidney disease, stage 4 (severe), N25.81 - Secondary hyperparathyroidism of renal origin Electrolytes 2 Months D63.1 - Anemia in chronic kidney disease, N18.4 - Chronic kidney disease, stage 4 (severe), N25.81 - Secondary hyperparathyroidism of renal origin Coding Level of Care Code Est Pt Level 4 (94364) Diagnoses Secondary hyperparathyroidism (of renal origin) N25.81 Anemia in stage 4 chronic kidney disease N18.4; D63.1 Chronic kidney disease stage: stage 4 (severe) Chronic kidney disease, stage 4 (severe) N18.4 Essential hypertension I10
== END 2024-07-16 16:20 | disposition home or self-care (01) ==
PROVIDERS: PCP Family Medicine; Visit Provider Internal Medicine Nephrology
DX: I12.9 Hypertensive chronic kidney disease with stage 1 through stage 4 chronic kidney disease, or unspecified chronic kidney disease (principal); N18.4 Chronic kidney disease, stage 4 (severe); D63.1 Anemia in chronic kidney disease; N25.81 Secondary hyperparathyroidism of renal origin
CPT/HCPCS: 99214

== ENCOUNTER → 2024-07-16 15:26 | Outpatient (BNVA) | payer OTHER, SELFPAY | PROVIDERS: PCP Family Medicine; Visit Provider Internal Medicine Nephrology | DX: I12.9 Hypertensive chronic kidney disease with stage 1 through stage 4 chronic kidney disease, or unspecified chronic kidney disease (principal); N18.4 Chronic kidney disease, stage 4 (severe); D63.1 Anemia in chronic kidney disease; N25.81 Secondary hyperparathyroidism of renal origin | CPT/HCPCS: 96372; 99212; Q5106 ==

== ENCOUNTER 2024-07-31 14:54 | Outpatient (AMB) | payer OTHER, SELFPAY ==
--- NOTE | 2024-07-31 15:10 | MHC.PC.OV ---
Vital Signs 07/31/24 15:16 Height 5 ft 6 in Weight 187 lb BMI 30.2 BP 135/62 Blood Pressure Location Rt brachial Position Sitting Respiration 14 Pulse 84 Pulse Source Pulse Oximeter Temp 97.7 F Temp Source Temporal Artery Scan Pulse Oximetry (%) 99 Oxygen Delivery Method Room Air Intake Visit Reasons: Follow-up?hypertension,?diabetes?and?hypokalemia Intake Note: f/u HTN and DM and hypokalemia Allergies baclofen Allergy (Severe, Verified 07/31/24 15:11) can't move sulfacetamide Allergy (Severe, Verified 07/31/24 15:11) tongue swelling sulfur Allergy (Severe, Verified 07/31/24 15:11) tongue swelling Medication List - Last Reconciled 07/31/24 by Tommie Suarez MD acetaminophen 325 mg PO Q4-6H PRN albuterol sulfate 90 mcg/actuation (Ventolin HFA) 2 puffs PO QID PRN allopurinol 100 mg PO DAILY 30 days aspirin 81 mg PO DAILY atorvastatin 40 mg PO DAILY bisacodyl 10 mg SD DAILY PRN blood sugar diagnostic (OneTouch Verio test strips) Test Blood Sugar 3 times a day As directed, 90 days blood sugar diagnostic (FreeStyle Lite Strips) USE DIRECTED TO TEST BLOOD SUGAR THREE TIMES DAILY blood-glucose meter (FreeStyle [place] Lite kit) As directed 3x/day blood-glucose meter (OneTouch Verio Flex Meter) Test Blood sugar As directed, 999 days bumetanide 0.5 mg PO DAILY 90 days bupropion HCl XL 150 mg PO QAM calcitriol 0.25 mcg PO DAILY calcitriol 0.25 mcg PO DAILY cariprazine (Vraylar) 1.5 mg PO DAILY 30 days carvedilol orally daily; 25mg AM and 6.25mg PM 90 days carvedilol 25 mg PO QAM 90 days clopidogrel 75 mg PO DAILY 90 days dextrose 15 grams PO Q15M PRN diaper,brief,adult,disposable (Fitted Briefs Large) 3 times a day As directed, 30 days diaper,brief,adult,disposable (Comfort Shield Adult Diaper) Large. 3 times a day As directed, 90 days docusate sodium (Colace) 100 mg PO TID PRN 30 days docusate sodium (Colace) 100 mg PO BID PRN dulaglutide (Trulicity) 4.5 mg (0.5 mL) subcut QWEEK empagliflozin (Jardiance) 10 mg PO DAILY epoetin sally (Procrit) 2,000 units IV 3XW ergocalciferol (vitamin D2) 1,250 mcg PO QWEEK famotidine 40 mg PO DAILY 90 days fluticasone propion-salmeterol 250-50 mcg/dose (Advair Diskus) 1 ea PO BID 30 days gabapentin 100 mg PO BID glucagon mg subcut glucagon 3 mg/actuation (Baqsimi) 3 mg intranasal ONCE PRN 30 days hydralazine 50 mg PO TID 30 days insulin aspart U-100 (Novolog FlexPen U-100 Insulin aspart) 8 units (0.08 mL) subcut DAILY 30 days insulin glargine (Lantus Solostar U-100 Insulin) 40 units (0.4 mL) subcut QAM 30 days insulin lispro (Admelog U-100 Insulin lispro) 1 sliding scale dose subcut USEASDIRECTD iron sucrose (Venofer) 100 mg (5 mL) IV QWEEK 5 doses isosorbide mononitrate ER 30 mg PO DAILY 90 days lancets (OneTouch Delica Plus Lancet) Test bood sugar 3 times a day, As directed, 90 days miscellaneous medical supply Disposable Absorbent Pads DX: Urinary incontinence As directed, 2 per night, duration 999 days, 30 day supply montelukast 10 mg PO DAILY pantoprazole 40 mg PO DAILY 30 days pen needle, diabetic As directed 4 times a day, 100 day supply polyethylene glycol 3350 (Miralax) 17 grams PO DAILY 14 days potassium chloride ER 20 mEq PO DAILY 30 days sennosides (Evac-U-Gen (sennosides)) 17.2 mg PO DAILY Tobacco use date assessed: 04/09/24 Dental Screening Dental Screen Date: 01/12/24 HPI Follow-up?hypertension,?diabetes?and?hypokalemia HPI Details 63 y/o female presents to f/u hypertension, diabetes, hypokalemia. Blood pressure today 135/62, 84p. She is on carvedilol. Recent A1c in 06/09/24 9.2%. She states she has an appt. with Endocrinology tomorrow. Continues taking potassium supplements. Had seen nephrology and had decreased her Bumex to every other day. Reports nail avulsion of L 5th toe. [facility] Medical History Sleep apnea Myocardial infarction CVA (cerebral vascular accident) Type 2 diabetes mellitus with diabetic polyneuropathy Chronic kidney disease, stage 4 (severe) Essential hypertension Hyperlipidemia LDL goal <70 Obesity due to excess calories Chronic, continuous use of opioids Chronic pain syndrome Spinal stenosis, lumbar region with neurogenic claudication Surgical History History of rotator cuff surgery History of abdominoplasty Status post breast reduction Hx of toe surgery Family History Father No problems noted. Mother Diabetes Hypertension Sister No problems noted. Sister No problems noted. Son No problems noted. Social History Household Members: Friend(s) Household Members Other:: roomate Housing: Apartment Alcohol intake: never Patient Tobacco Use Status: Former Tobacco user Tobacco use type: Cigarette Cigarette Packs Per Day: 0.5 e-Cigarette/Vaping Use: Never Used Second Hand Smoke Exposure: No Advance Directives Date on File: 07/07/20 service: No Current occupational status: disabled Current occupational exposures/hazards: No Cognitive needs: No Hearing needs: No Vision needs: No Questionnaire PHQ-9 Over the last 2 weeks, how often have you been bothered by any of the following problems? 1. Little interest or pleasure in doing things: not at all 2. Feeling down, depressed, or hopeless: not at all 3. Trouble falling or staying asleep, or sleeping too much: not at all 4. Feeling tired or having little energy: not at all 5. Poor appetite or overeating: not at all 6. Feeling bad about yourself - or that you are a failure or have let yourself or your family down: not at all 7. Trouble concentrating on things, such as reading the newspaper or watching television: not at all 8. Moving or speaking so slowly that other people could have noticed. Or the opposite - being so fidgety or restless that you have been moving around a lot more than usual: not at all 9. Thoughts that you would be better off or of hurting yourself in some way: not at all Total score: 0 Source: Developed by Drs. Andre Hilario, Jose Tineo and colleagues, with an educational micha from [employer]. Thrive Questionnaire Date Thrive assessed: 01/12/24 I am a: Patient What is your living situation today?: I have a steady place to live Within the past 12 months, did the food you bought not last and you didn't have the money to get more?: Never true Within the past 12 months, did you worry whether your food would run out before you got money to buy more?: Never true Do you have trouble paying for medicines?: No Do you have trouble getting transportation to medical appointments?: No Do you have trouble paying your heating and electricity bill?: No Do you have trouble taking care of your child, family member or friend?: No Do you have trouble with day-to-day activities such as bathing, preparing meals, shopping, managing finances, etc.?: Yes Are you currently unemployed and looking for a job?: No Are you interested in more education?: No Please select the resources that you would like help with: None Currently or been in a relationship where the following occur: No concerns reported THRIVE Score: 0 AUDIT C Alcohol Use Questionnaire (AUDIT-C) 1. How often do you have a drink containing alcohol?: Never Total Score: 0 BRITT-7 AMB Questionnaire BRITT-7 Date BRITT - 7 assessed: 01/12/24 Feeling nervous, anxious, or on edge: 0 = Not at all Not being able to stop or control worryin = Not at all Worrying too much about different things: 0 = Not at all Trouble relaxin = Not at all Being so restless that it is hard to sit still: 0 = Not at all Becoming easily annoyed or irritable: 0 = Not at all Feeling afraid as if something awful might happen: 0 = Not at all Total BRITT-7 score (0-4 normal; 5-9 mild; 10-14 moderate; 15-21 severe): 0 Source: Developed by Kasey Bautista Kurt Kroenke and colleagues, with an educational micha from [employer]. Review of Systems Const Denies chills, Denies fatigue, Denies fever(s), Denies headache(s) and Denies weakness ENT Denies dizziness and Denies headache(s) Card Denies dyspnea Resp Denies cough, Denies dyspnea, Denies wheezing and Denies other (shortness of breath) Musc Denies numbness and Denies tingling Neuro Denies dizziness, Denies headache(s), Denies numbness, Denies tingling and Denies weakness Psych Denies anxiety and Denies depression Endo Denies fatigue Aller/Immun Denies wheezing Physical exam (Primary Care) Vital Signs: Last Vital Signs Temp 97.7 F 07/31/24 15:16 Pulse 84 07/31/24 15:16 Resp 14 07/31/24 15:16 BP 135/62 07/31/24 15:16 Pulse Ox 99 07/31/24 15:16 Oxygen Delivery Method Room Air 07/31/24 15:16 BMI result Body Mass Index 30.2 Tobacco/Smoking Status: Tobacco use Status Tobacco use date assessed 04/09/24 07/31/24 15:18 Patient Tobacco Use Status Former Tobacco user 07/31/24 15:18 Tobacco use type Cigarette 07/31/24 15:18 e-Cigarette/Vaping Use Never Used 07/31/24 15:18 PHQ-9: PHQ-9 Score PHQ-9: Total score 0 07/31/24 15:46 Thrive Assessment: Date of Thrive Assessment Date Thrive assessed 01/12/24 07/31/24 15:18 Currently or been in a relationship where the following occur: No concerns reported Const General: well developed; No acute distress Nutritional Appearance: well nourished Orientation/consciousness: patient oriented x3 [facility] Head: Yes normocephalic and Yes atraumatic Eyes General: appearance normal, both eyes and all related structures Pupils: Equal, round and reactive pupils present EOM: EOMs intact bilaterally Resp Effort & Inspection: normal respiratory effort Auscultation: clear to auscultation bilaterally Cardio Rate: regular rate Rhythm: regular rhythm Heart sounds: S1 normal heart sound present, S2 normal heart sound present, no gallops, no murmurs and no rubs Neuro General: patient oriented x3 and gait normal Cranial nerves: Yes Equal, round and reactive pupils present Psych Affect: normal affect Coding Level of Care Code Est Pt Level 4 (37550) Diagnoses Essential hypertension I10 Type 2 diabetes mellitus with stage 4 chronic kidney disease, with long-term current use of insulin E11.22; N18.4; Z79.4 Chronic kidney disease stage: stage 4 (severe) Diabetes mellitus shelter insulin use: with superintendent terminal use Hypokalemia E87.6 Infection of toe L08.9 Chronic renal failure N18.9 Assessment & Plan Assessment & Plan (1) Essential hypertension: Code(s): I10 - Essential (primary) hypertension Category: Medical Plan: Blood?pressure?is?fairly?well?controlled. Goal?is?less?than?140/90 Continue?current?medication (2) Type 2 diabetes mellitus with diabetic chronic kidney disease: Code(s): E11.22 - Type 2 diabetes mellitus with diabetic chronic kidney disease Category: Medical Qualifiers: Chronic kidney disease stage: stage 4 (severe) Diabetes mellitus superintendent terminal insulin use: with shelter use Qualified Code(s): E11.22 - Type 2 diabetes mellitus with diabetic chronic kidney disease; N18.4 - Chronic kidney disease, stage 4 (severe); Z79.4 - longterm (current) use of insulin Plan: A1c?showed?poor?control?at?last?visit?however?she?noted?that?she?had?been?having?low?blood?sugars?as?well She?has?an?appointment?with?endocrinology?tomorrow No?medication?changes?made?today (3) Hypokalemia: Code(s): E87.6 - Hypokalemia Category: Medical Plan: She?had?had?hypokalemia?and?is?taking?potassium?as?prescribed Potassium?at?last?check?was?okay Will?continue?to?monitor (4) Infection of toe: Code(s): L08.9 - Local infection of the skin and subcutaneous tissue, unspecified Category: Medical Plan: Avulsion?of?left?5th?toenail?and?this?appears?infected Will?give?her?a?script?for (5) Chronic renal failure: Code(s): N18.9 - Chronic kidney disease, unspecified Category: Medical Plan: Worsening?renal?failure Nephrology?has?eased?up?on?bumetanide Creatinine?continues?to?rise Rechecking?this Orders: Orders Comprehensive Met. Panel Today E87.6 - Hypokalemia Complete Blood Count Auto Diff Today L08.9 - Local infection of the skin and subcutaneous tissue, unspecified, Z00.00 - Encounter for general adult medical examination without abnormal findings B Type Natriuretic Peptide Today I50.9 - Heart failure, unspecified Referrals Podiatry Referral E11.42 - Type 2 diabetes mellitus with diabetic polyneuropathy, L08.9 - Local infection of the skin and subcutaneous tissue, unspecified, S91.209A - Unspecified open wound of unspecified toe(s) with damage to nail, initial encounter Medications: New doxycycline hyclate 100 mg PO BID 10 days 20 tabs 0RF
[2024-07-31 15:16] VITALS: BP 135/62; PULSE 84; RESP 14; TEMP 36.5; O2SAT 99; BMI 30.2
== END 2024-07-31 16:03 | disposition home or self-care (01) ==
LOC: HO.HMCFM 14:55
PROVIDERS: PCP Family Medicine; Visit Provider Family Medicine
DX: I12.9 Hypertensive chronic kidney disease with stage 1 through stage 4 chronic kidney disease, or unspecified chronic kidney disease (principal); E11.22 Type 2 diabetes mellitus with diabetic chronic kidney disease; N18.4 Chronic kidney disease, stage 4 (severe); Z79.4 Long term (current) use of insulin; E87.6 Hypokalemia; L08.9 Local infection of the skin and subcutaneous tissue, unspecified; N18.9 Chronic kidney disease, unspecified

== ENCOUNTER → 2024-07-31 14:54 | Outpatient (BNVA) | payer OTHER, SELFPAY | PROVIDERS: PCP Family Medicine; Visit Provider Family Medicine | DX: I12.9 Hypertensive chronic kidney disease with stage 1 through stage 4 chronic kidney disease, or unspecified chronic kidney disease (principal); E11.22 Type 2 diabetes mellitus with diabetic chronic kidney disease; N18.4 Chronic kidney disease, stage 4 (severe); Z79.4 Long term (current) use of insulin; E87.6 Hypokalemia; L08.9 Local infection of the skin and subcutaneous tissue, unspecified | CPT/HCPCS: 96127; 99212 ==

== ENCOUNTER → 2024-08-02 23:59 | Outpatient (BNV) | payer OTHER, SELFPAY | PROVIDERS: PCP Family Medicine; Visit Provider Family Medicine | DX: I50.20 Unspecified systolic (congestive) heart failure (principal); E11.22 Type 2 diabetes mellitus with diabetic chronic kidney disease; F32.A Depression, unspecified; N18.4 Chronic kidney disease, stage 4 (severe) | CPT/HCPCS: G0179 ==

== ENCOUNTER 2024-08-06 09:41 | Outpatient (REF) | payer OTHER, SELFPAY ==
[2024-08-06 11:13] LABS: MANUAL DIFF FLAG NO
[2024-08-06 11:23] LABS: Basophils Absolute Auto 0.1 X10*3/uL (0.0-0.2); Basophils Percent Auto 0.9 % (0-2); Eosinophils Absolute Auto 0.5 X10*3/uL (0.0-0.4); Eosinophils Percent Auto 7.6 % (0-4); Hemoglobin 10.4 g/dl (12.0-16.0); Imm Gran Abs Auto 0.03 X10*3/uL (0.00-0.03); Imm Gran Pct Auto 0.5 % (0.0-0.4); Lymphocytes Absolute Auto 1.4 X10*3/uL (1.2-4.9); Lymphocytes Percent Auto 21.1 % (20-40); Mean Corpuscular HGB Conc 31.5 g/dl (31.0-35.0); Mean Corpuscular Hemoglobin 26.7 pg (27.0-33.0); Mean Corpuscular Volume 84.6 fL (80.0-98.0); Mean Platelet Volume 10.6 fL (9.4-12.3); Monocytes Absolute Auto 0.5 X10*3/uL (0.1-1.2); Monocytes Percent Auto 7.7 % (2-11); Neutrophils Percent Auto 62.2 % (45-73); Platelet Count 392 X10*3/uL (160-400); Red Cell Distribution Width 16.2 % (11.0-16.0); White Blood Count 6.5 X10*3/uL (4.8-10.8)
[2024-08-06 12:15] LABS: B Type Natriuretic Peptide 104 pg/mL (<100)
[2024-08-06 12:37] LABS: Alanine Aminotransferase 8 U/L (0-31); Albumin Level 3.4 g/dL (3.5-5.0); Anion Gap 17 (12-20); Aspartate Amino Transferase 16 U/L (5-31); Bilirubin Total 0.5 mg/dL (0.0-1.0); Blood Urea Nitrogen 23 mg/dL (9-16); Calcium 9.4 mg/dL (8.4-10.2); Carbon Dioxide 20 mmol/L (22-29); Chloride 103 mmol/L (96-108); Estimated Glomerular Filt Rate 20; Glucose Random 203 mg/dL (60-115); Potassium 3.7 mmol/L (3.3-5.1); Sodium 136 mmol/L (135-145); Total Protein 7.6 g/dL (6.5-8.0)
[2024-08-06 12:47] LABS: Alkaline Phosphatase 148 U/L (39-117)
== END 2024-08-06 09:42 | disposition home or self-care (01) ==
LOC: HO.WFDLDS 09:41
PROVIDERS: Visit Provider Family Medicine
DX: Z00.00 Encounter for general adult medical examination without abnormal findings (principal); E87.6 Hypokalemia; L08.9 Local infection of the skin and subcutaneous tissue, unspecified; I50.9 Heart failure, unspecified
CPT/HCPCS: 36415; 80053; 83880; 85025

== ENCOUNTER 2024-10-04 10:21 | Outpatient (REF) | payer OTHER, SELFPAY ==
--- OUTSIDE RECORDS SUMMARY | 2024-10-04 11:44 | XMS_ITS ---
Author Name [facility] Organization Unknown History of Medication Use Medication Directions Dispensed Refills Start Date End Date Status albuterol (PROVENTIL HFA; VENTOLIN HFA) 108 (90 Base) MCG/ACT inhaler Inhale 2 puffs 4 times daily (every 6 hours) as needed for wheezing. 4 active buPROPion (WELLBUTRIN XL) 150 MG 24 hr tablet Take 1 tablet (150 mg total) by mouth every morning. Swallow whole; do not crush, chew, or divide. 4 active insulin lispro (HumaLOG KWIKPEN) 100 UNIT/ML pen injection Inject 0.2 mL (20 Units total) under the skin 3 (three) times a day before meals. 4 active magnesium oxide 400 (241.3 Mg) MG Tab tablet Take 1 tablet (400 mg total) by mouth daily. 4 active carvedilol (COREG) 6.25 MG tablet TAKE 2 TABLETS(12.5 MG) BY MOUTH TWICE DAILY WITH MEALS 4 active traZODone (DESYREL) 50 MG tablet Take 1 tablet (50 mg total) by mouth nightly. 4 active LANTUS SOLOSTAR 100 UNIT/ML pen injection INJECT SUBCUTANEOUSLY 20 UNITS DAILY 4 active SUPPLY DME MISC Pressure relieving cushion 4 active PANTOprazole (PROTONIX) 40 MG EC tablet TAKE 1 TABLET(40 MG) BY MOUTH EVERY MORNING BEFORE BREAKFAST 4 active dulaglutide (TRULICITY) 0.75 MG/0.5ML subcutaneous injection Inject 0.5 mL (0.75 mg total) under the skin once a week. 4 active polyethylene glycol-electrolytes (NuLYTELY, TRILYTE) 420 g solution MIX AND DRINK UTD 4 active meclizine (ANTIVERT) 12.5 MG tablet Take 1 tablet (12.5 mg total) by mouth 3 (three) times a day as needed for dizziness. 4 active triamcinolone (KENALOG) 0.1 % cream Apply topically 2 (two) times a day as needed for rash. To dry areas on ears. 4 active lisinopril (PRINIVIL,ZeSTRIL) 40 MG tablet Take 1 tablet (40 mg total) by mouth daily. 4 active amLODIPine (NORVASC) 10 MG tablet Take 1 tablet (10 mg total) by mouth daily. 4 active hydrochlorothiazide (HYDRODIURIL) 12.5 MG tablet Take 1 tablet (12.5 mg total) by mouth daily. 4 active montelukast (SINGULAIR) 10 MG tablet Take 1 tablet (10 mg total) by mouth nightly. 4 active lidocaine (XYLOCAINE) 4 % external solution Apply topically 4 (four) times a day as needed for mild pain. Do not apply more than 4 times daily. 4 active atorvastatin (LIPITOR) 40 MG tablet Take 1 tablet (40 mg total) by mouth daily. 4 active Continuous Blood Gluc Sensor (FREESTYLE EMILE 14 DAY SENSOR) [facility] Apply 1 Device topically continuous. Apply new sensor every 14 days 4 active aspirin enteric coated (ECOTRIN LOW STRENGTH) 81 MG EC tablet Take 81 mg by mouth daily. 4 active fluticasone-salmeterol (ADVAIR DISKUS) 250-50 mcg/inh diskus inhaler Inhale 1 puff 2 (two) times a day. 4 active oxyCODONE-acetaminophen (PERCOCET) 5-325 mg per tablet Take 1 tablet by mouth 2 (two) times a day as needed for severe pain. Max Daily Amount: 2 tablets 4 active epoetin sally (EPOGEN,PROCRIT) 04277 UNIT/ML injection Inject 2 mL (20,000 Units total) under the skin every 14 days (2 weeks). 4 active PANTOprazole (PROTONIX) 40 MG EC tablet Take 1 tablet (40 mg total) by mouth daily. 4 active calcitRIOL (ROCALTROL) 0.25 MCG capsule Take 1 capsule (0.25 mcg total) by mouth daily. 4 active furosemide (LASIX) 40 MG tablet Take 40 mg by mouth daily. 4 active DULoxetine (CYMBALTA) 60 MG capsule Take 1 capsule (60 mg total) by mouth daily. 4 active gabapentin (NEURONTIN) 600 MG tablet Take 1 tablet (600 mg total) by mouth 3 (three) times a day. 4 active ferrous Sulfate dried (SLOW IRON) 160 (50 Fe) MG Tab CR Take 1 tablet (160 mg total) by mouth every morning with breakfast. 4 active Problems Problem Status Onset Date Problem Type Date of Resoluti on Source Depression active 2018-12-24 ProblemAct [facility] Uncontrolled type 2 diabetes mellitus with peripheral neuropathy active 2017-11-10 ProblemAct [facility] Pure hypercholesterolemia active 2018-08-15 ProblemAct [facility] Speech disturbance active 2019-01-07 ProblemAct [facility] Rigidity (muscles) active 2019-01-07 ProblemAct [facility] Weakness active 2018-12-24 ProblemAct [facility] Vitamin D deficiency active 2017-06-26 ProblemAct [facility] Osteomyelitis of toe of left foot active 2017-12-26 ProblemAct [facility] Trigger ring finger of right hand active 2018-07-19 ProblemAct [facility] Essential hypertension active 2017-06-13 ProblemAct [facility] Gastroesophageal reflux disease active 2018-09-13 ProblemAct [facility] FCI prescription opiat e use active 2018-08-15 ProblemAct [facility] Moderate persistent asthma active 2018-07-19 ProblemAct [facility] Acute pain of right shoulder active 2018-07-19 ProblemAct [facility] Anemia due to chronic kidney disease active 2017-07-18 ProblemAct [facility] 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
--- OUTSIDE RECORDS SUMMARY | 2024-10-04 11:44 | XMS_ITS | Continuity of Care Document ---
Author Organization [facility] [address] [place] [address] Phone [phone] Care Team Providers Care Flue Tile Press Operator Name Role Phone Tommie Suarez MD Care Team Information Physician Anesthesiologist [phone] Problems Active Problems Provider Date Type 2 diabetes mellitus ELENO Robins Onse t: 11/23/2023 Chronic kidney disease stage 4 Tonia Robins Onset: 11/23/2023 CVA - cerebrovascular accide nt due to cerebral artery occlusion ELENO Robins Onset: 11/23/2023 Myocardial infarction ELENO Robins Onset: 11/23/2023 Obstructive sleep apnea syndrome ELENO Robins Onset: 11/23/2023 Social History Type Date Description Comments Sex Unknown ETOH Use Denies alcohol use Tobacco Use Start: Unknown End: Unknown Patient is a former smoker Allergies and adverse reactions Active Allergies Criticality Reaction Severity Comments Date Sulfamethoxazole Unable to assess criticality 11/23/2023 Baclofen Unable to assess criticality 11/23/2023 Medications Active Medications SIG Qnty Indications Order ing Provider Date Onetouch VerioStrips Use One Strip To Check Glucose 3 To 4 Times Daily (Bulk) 200units E11.22 Leann Staton M.D. 12/29/2023 Freestyle Jazmine 2/[place]/Flash Glucose Monitoring Soxwsd7Iipkql Device use as directed with sensors dx: e11. 1units E11Ashley Staton M.D. 11/23/2023 Freestyle Jazmine 2/Sensor/Flash Glucose Monitoring [id number] Misc 1 sensor every 14 days dx: e11.22 3units Ashley Staton M.D. 11/23/2023 Lanrivera ArroyoIgedwvbf546Dkcz/ML Solution Pen-Inject Lazaro Suarez MD Montelukast Irojlk43yz Tablets 1 by mouth every day 30tabs Tommie Suarez MD Trulicity4.5mg/0.5ML Solution Pen-Inject inject 4.5mg into skin every week 6ml Tommie Suarez MD Vitamin D (Ergocalciferol)1.25m g (56646 Ut) Capsules Tommie Suarez MD Atorvastatin Wzanduc77oz Tablets 1 by mouth every day 90tabs Tommie Suarez MD Aspirin Low Cqyb92zj Tablets DR 1 by mouth every day Tommie Suarez MD Albuterol Sulfate VKI476(90Base) mcg/Act Aerosol Tommie Suarez MD Ggfwysidzq024ky Capsules 1 capsule by twice daily 180caps Tommie Suarez MD Mmbtioafxf0bo Tablets 1 tab by mouth twice a day Tommie Suarez MD Pantoprazole Juuaze06hx Tablets DR 1 by mouth every day 90tabs Tommie Suarez MD Vital Signs Date Vital Result Comment 08/01/2024 3:22pm BP Systolic 130 mmHg BP Diastolic 64 mmHg Heart Rate 87 /min Height 66 inches 5'6 Weight 194.00 lb BMI (Body Mass Index) 31.3 kg/m2 Results Test Acquired Date Facility Test Result H/L [facility] [place] Laboratory test finding 08/01/2024 Inhouse Glucose Fingerstick 150 Hemoglobin A1c 7.6% Laboratory test finding 05/01/2024 Inhouse Glucose Fingerstick 257 Laboratory test finding 12/29/2023 Inhouse Glucose Fingerstick 74 Hemoglobin A1c 6.7% Laboratory test finding 11/23/2023 Inhouse Glucose Fingerstick 190 Procedures Date Code Description Status 08/01/2024 53539 Glucose Monitoring Interpeta tion And Report Completed Medical Devices Description No Information Available Encounters Type Date Location Provider Dx Diagnosis Office Visit 08/01/2024 2:45p Main Office ELENO Robins 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 E11.42 Type 2 diabetes mila itus with diabetic polyneuropathy N18.4 Chronic kidney disea se, stage 4 (severe) Z79.4 retirement (current) use of insulin D63.1 Anemia in chronic ki dney disease E66.9 Obesity, unspecified Z68.31 Body mass index [BMI ] 31.0-31.9, adult Assessments Date Code Description Provider 08/01/2024 E11.22 Type 2 diabetes mellitus with diabetic chronic kidney disease ELENO Robins 08/01/2024 E11.42 Type 2 diabetes mellitus with diabetic polyneuropathy ELENO Robins 08/01/2024 N18.4 Chronic kidney disease, stag e 4 (severe) ELENO Robins 08/01/2024 Z79.4 retirement (current) use of i nsulin ELENO Robins 08/01/2024 D63.1 Anemia in chronic kidney dis ease ELENO Robins 08/01/2024 E66.9 Obesity, unspecified ELENO Robins 08/01/2024 Z68.31 Body mass index [BMI] 31.0-3 1.9, adult ELENO Robins Plan of Treatment Future Appointment(s):* 11/15/2024 2:45 pm - ELENO Robins at Main Office 05/01/2024 - ELENO Robins* E11.22 Type 2 diabetes mellitus with diabetic chronic kidney disease * E11.42 Type 2 diabetes mellitus with diabetic polyneuropathy * N18.4 Chronic kidney disease, stage 4 (severe) * Z79.4 retirement (current) use of insulin * E66.9 Obesity, unspecified * D63.1 Anemia in chronic kidney disease * Z68.31 Body mass index [BMI] 31.0-31.9, adult Functional Status Description No Information Available Mental Status Description No Information Available Referrals Description No Information Available
[2024-10-04 14:07] LABS: MANUAL DIFF FLAG NO
[2024-10-04 14:11] LABS: Basophils Absolute Auto 0.1 X10*3/uL (0.0-0.2); Basophils Percent Auto 0.8 % (0-2); Eosinophils Absolute Auto 0.3 X10*3/uL (0.0-0.4); Eosinophils Percent Auto 4.7 % (0-4); Hematocrit 35.6 % (37.0-47.0); Hemoglobin 10.9 g/dl (12.0-16.0); Imm Gran Abs Auto 0.03 X10*3/uL (0.00-0.03); Imm Gran Pct Auto 0.5 % (0.0-0.4); Lymphocytes Absolute Auto 1.2 X10*3/uL (1.2-4.9); Lymphocytes Percent Auto 19.8 % (20-40); Mean Corpuscular HGB Conc 30.6 g/dl (31.0-35.0); Mean Corpuscular Hemoglobin 27.2 pg (27.0-33.0); Mean Corpuscular Volume 88.8 fL (80.0-98.0); Mean Platelet Volume 11.2 fL (9.4-12.3); Monocytes Absolute Auto 0.7 X10*3/uL (0.1-1.2); Monocytes Percent Auto 11.7 % (2-11); Neutrophils Absolute Auto 3.7 x10*3/uL (2.0-8.3); Neutrophils Percent Auto 62.5 % (45-73); Platelet Count 306 X10*3/uL (160-400); Red Blood Count 4.01 X10*6/uL (4.20-5.50); Red Cell Distribution Width 17.2 % (11.0-16.0)
[2024-10-04 14:36] LABS: Anion Gap 13 (12-20); Blood Urea Nitrogen 27 mg/dL (9-16); Calcium 9.6 mg/dL (8.4-10.2); Carbon Dioxide 24 mmol/L (22-29); Chloride 107 mmol/L (96-108); Estimated Glomerular Filt Rate 15; Potassium 4.5 mmol/L (3.3-5.1); Sodium 139 mmol/L (135-145)
== END 2024-10-04 10:22 | disposition home or self-care (01) ==
LOC: HO.WFDLDS 10:21
PROVIDERS: Visit Provider Internal Medicine Nephrology
DX: N25.81 Secondary hyperparathyroidism of renal origin (principal); N18.4 Chronic kidney disease, stage 4 (severe); D63.1 Anemia in chronic kidney disease
CPT/HCPCS: 36415; 80051; 82310; 82565; 84520; 85025

== ENCOUNTER 2024-11-21 14:07 | Outpatient (AMB) | payer OTHER, SELFPAY ==
--- NOTE | 2024-11-21 14:34 | HO.NEPHOV ---
Vital Signs 11/21/24 14:36 Height 5 ft 6 in Weight 194 lb BMI 31.3 BP 142/80 H Blood Pressure Location Rt brachial Position Sitting Intake Visit Reasons: R/s from 09/17/24-Conf Customer Service Teller Required: No Accompanied by: Self / Same As Patient Allergies baclofen Allergy (Severe, Verified 11/21/24 14:36) can't move sulfacetamide Allergy (Severe, Verified 11/21/24 14:36) tongue swelling sulfur Allergy (Severe, Verified 11/21/24 14:36) tongue swelling HPI Comments Details: Ms. Cutler was seen in the office in follow-up of her chronic kidney disease, hypertension and anemia. She denies any headache, visual disturbance, nausea, vomiting, diarrhea, chest pain, shortness of breath, worsening pedal edema or urinary symptoms. She denies any uremic symptoms. She claims to have her blood sugars better .She denies taking any qeqv-sxi-mqpwxen medications. She is on lipid-lowering agents. Her blood pressure is better controlled. [facility] Medical History Sleep apnea Myocardial infarction CVA (cerebral vascular accident) Type 2 diabetes mellitus with diabetic polyneuropathy Chronic kidney disease, stage 4 (severe) Essential hypertension Hyperlipidemia LDL goal <70 Obesity due to excess calories Chronic, continuous use of opioids Chronic pain syndrome Spinal stenosis, lumbar region with neurogenic claudication Surgical History History of rotator cuff surgery History of abdominoplasty Status post breast reduction Hx of toe surgery Family History Father No problems noted. Mother Diabetes Hypertension Sister No problems noted. Sister No problems noted. Son No problems noted. Social History Household Members: Friend(s) Household Members Other:: roomate Housing: Apartment Alcohol intake: never Patient Tobacco Use Status: Former Tobacco user Tobacco use type: Cigarette Cigarette Packs Per Day: 0.5 e-Cigarette/Vaping Use: Never Used Second Hand Smoke Exposure: No Advance Directives Date on File: 07/07/20 service: No Current occupational status: disabled Current occupational exposures/hazards: No Cognitive needs: No Hearing needs: No Vision needs: No Review of Systems Const All systems reviewed & are unremarkable except as noted in HPI and below Physical Exam Vital Signs: Last Vital Signs BP 142/80 H 11/21/24 14:36 BMI result Body Mass Index 31.3 Const General: comfortable and no acute distress Orientation/consciousness: patient oriented x3 HEENT Head: Yes normocephalic Mouth: Normal oral and palatal mucosa present Eyes EOM: EOMs intact bilaterally Neck Neck: Yes supple Resp Auscultation: clear to auscultation bilaterally Cardio Jugular venous distension: no JVD Rate: regular rate GI Palpation (GI): Soft to palpation Auscultation: normal bowel sounds General: Yes no CVA tenderness Back/Spine/Pelvis Back: no CVA tenderness Skin General skin exam: no rashes or lesions noted Neuro General: patient oriented x3 and moves all extremities Extrem General: Yes no pedal edema Results Reviewed Nephrology Results: Hgb 10.9 g/dl (12.0-16.0) L 10/04/24 WBC 6.0 X10*3/uL (4.8-10.8) 10/04/24 Plt Count 306 X10*3/uL (160-400) 10/04/24 Sodium 139 mmol/L (135-145) 10/04/24 Potassium 4.5 mmol/L (3.3-5.1) 10/04/24 Chloride 107 mmol/L (96-108) 10/04/24 Carbon Dioxide 24 mmol/L (22-29) 10/04/24 BUN 27 mg/dL (9-16) H 10/04/24 Creatinine 3.05 mg/dL (0.5-1.4) H 10/04/24 Calcium 9.6 mg/dL (8.4-10.2) 10/04/24 Phosphorus 3.5 mg/dL (2.7-4.5) 07/09/24 PTH Intact 293.6 pg/mL (8.7-77.1) H 07/09/24 Assessment & Plan Assessment & Plan (1) Anemia in chronic kidney disease: Code(s): N18.9 - Chronic kidney disease, unspecified; D63.1 - Anemia in chronic kidney disease Category: Medical Qualifiers: Chronic kidney disease stage: stage 4 (severe) Qualified Code(s): N18.4 - Chronic kidney disease, stage 4 (severe); D63.1 - Anemia in chronic kidney disease (2) Secondary hyperparathyroidism (of renal origin): Code(s): N25.81 - Secondary hyperparathyroidism of renal origin Category: Medical (3) Chronic kidney disease, stage 4 (severe): Code(s): N18.4 - Chronic kidney disease, stage 4 (severe) Category: Medical (4) Essential hypertension: Code(s): I10 - Essential (primary) hypertension Category: Medical Plan 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 She had not been tolerating ALEJO-inhibitor but is on hydralazine and Imdur. Her previous renal ultrasound had shown thinning of renal cortex. She had extensive workup done which did not show any other etiology for her CKD. She could continue Bumex every other day. She should cut back sodium in the diet. She had iron deficiency and had received Venofer . She also had been on Procrit. She is on Jardiance. She has history of secondary hyperparathyroidism of renal origin. She had been on vitamin-D and calcitriol. All questions answered Orders: Orders Blood Urea Nitrogen 3 Months D63.1 - Anemia in chronic kidney disease, I10 - Essential (primary) hypertension, N18.4 - Chronic kidney disease, stage 4 (severe), N25.81 - Secondary hyperparathyroidism of renal origin Electrolytes 3 Months D63.1 - Anemia in chronic kidney disease, I10 - Essential (primary) hypertension, N18.4 - Chronic kidney disease, stage 4 (severe), N25.81 - Secondary hyperparathyroidism of renal origin Calcium 3 Months D63.1 - Anemia in chronic kidney disease, I10 - Essential (primary) hypertension, N18.4 - Chronic kidney disease, stage 4 (severe), N25.81 - Secondary hyperparathyroidism of renal origin Complete Blood Count Auto Diff 3 Months D63.1 - Anemia in chronic kidney disease, I10 - Essential (primary) hypertension, N18.4 - Chronic kidney disease, stage 4 (severe), N25.81 - Secondary hyperparathyroidism of renal origin Ferritin 3 Months D63.1 - Anemia in chronic kidney disease, I10 - Essential (primary) hypertension, N18.4 - Chronic kidney disease, stage 4 (severe), N25.81 - Secondary hyperparathyroidism of renal origin Creatinine 3 Months D63.1 - Anemia in chronic kidney disease, I10 - Essential (primary) hypertension, N18.4 - Chronic kidney disease, stage 4 (severe), N25.81 - Secondary hyperparathyroidism of renal origin Phosphorus 3 Months D63.1 - Anemia in chronic kidney disease, I10 - Essential (primary) hypertension, N18.4 - Chronic kidney disease, stage 4 (severe), N25.81 - Secondary hyperparathyroidism of renal origin Parathyroid Hormone Intact 3 Months D63.1 - Anemia in chronic kidney disease, I10 - Essential (primary) hypertension, N18.4 - Chronic kidney disease, stage 4 (severe), N25.81 - Secondary hyperparathyroidism of renal origin IRON PROFILE 3 Months D63.1 - Anemia in chronic kidney disease, I10 - Essential (primary) hypertension, N18.4 - Chronic kidney disease, stage 4 (severe), N25.81 - Secondary hyperparathyroidism of renal origin Coding Level of Care Code Est Pt Level 4 (20970) Diagnoses Anemia in stage 4 chronic kidney disease N18.4; D63.1 Chronic kidney disease stage: stage 4 (severe) Secondary hyperparathyroidism (of renal origin) N25.81 Chronic kidney disease, stage 4 (severe) N18.4 Essential hypertension I10
[2024-11-21 14:36] VITALS: BP 142/80; BMI 31.3
--- OUTSIDE RECORDS SUMMARY | 2024-11-21 15:10 | XMS_ITS | Encounter Summary ---
Author Organization Former[facility] Address [address] [place] [address] Care Team Providers Care Officer Captain Name Role Phone Gayatri George APRN Primary Care Provider [phone] Neva Velásquez RN Unavailable Albaro Kellogg MD Unavailable Aging, [facility] Unavailable Ralph Wilcox MD Unavailable [phone] Otilia Paulson OD Unavailable [phone] Roselia Abernathy MD Unavailable [phone] Gayatri George APRN Primary Care Provider Encounter Details Date Type Department Care Team (Late st Contact Info) Description 09/18/2019 Scanned Document [address] [place] [phone] Gayatri George APRN [address] [place] [address] Social History Tobacco Use Types Packs/Day Years Used Date Smoking Tobacco: Some Days Cigarettes Last attempted to quit: 2014 Smokeless Tobacco: Never Alcohol Use Standard Drinks/Week Comments Yes 0 (1 standard drink = 0.6 oz pur e alcohol) very rare, special occasion Sex and Gender Information Value Date Recorded Sex Assigned at Not on file Gender Identity Not on file Sexual Orientation Not on file documented as of this encounter Plan of Treatment Not on file documented as of this encounter Visit Diagnoses Not on filedocumented in this encounter Care Teams Officer Captain Relationship Specialty Start Date End Date Gayatri George APRN PCP - General Family Medicine 07/17/18 11/17/20 Gayatri George APRN PCP - General Family Medicine 11/25/20 01/20/21 Neva Velásquez, JAMAR [address] [facility] [address] [place] [address] [facility] Community Container Washer 11/29/18 08/15/21 Albaro Kellogg MD [address] [place] [address] Physician Endocrinology 08/01/19 11/17/20 [facility], [facility] 02/04/20 Ralph Wilcox MD [address] [place] [address] Gastroenterology 11/25/20 Otilia Paulson OD [facility] [place] [address] Consulting Provider Optometry 11/25/20 [place] [address] Obstetrics and Gynecology 11/25/20 documented as of this encounter
--- OUTSIDE RECORDS SUMMARY | 2024-11-21 15:10 | XMS_ITS | Encounter Summary ---
Author Organization [facility] Address [address] [place] [address] Care Team Providers Care Medical Anthropology Director Name Role Phone Alison Aguirre APRN Primary Care Provider Soila Pineda Unavailable [phone] Gayatri George APRN Primary Care Provider Neva Velásquez RN Unavailable Albaro Kellogg MD Unavailable Aging, [place] [facility] Unavailable [phone] Ralph Wilcox MD Unavailable [phone] Otilia Paulson OD Unavailable [phone] Roselia Abernathy MD Unavailable [phone] Gayatri George APRN Primary Care Provider Gayatri George APRN Unavailable [phone] Encounter Details Date Type Department Care Team (Late st Contact Info) Description 12/21/2017 Telephone [facility] [address] [place] [address] Juan Miguel Pollard MD [address] [place] [id number] Social History Tobacco Use Types Packs/Day Years Used Date Smoking Tobacco: Former Cigarettes Q uit: 2015 Smokeless Tobacco: Never Comments:quit smoking x 2yrs ago Alcohol Use Standard Drinks/Week Comments Yes 0 (1 standard drink = 0.6 oz pur e alcohol) socially Sex and Gender Information Value Date Recorded Sex Assigned at Not on file Gender Identity Not on file Sexual Orientation Not on file documented as of this encounter Plan of Treatment Not on file documented as of this encounter Visit Diagnoses Not on filedocumented in this encounter Care Teams Medical Anthropology Director Relationship Specialty Start Date End Date Alison Aguirre APRN PCP - General Internal Medicine 10/24/17 07/16/18 Gayatri George, BIT SHAVER [address] [place] [address] PCP - General Family Medicine 07/17/18 11/17/20 Gayatri George, BIT SHAVER [address] [id number] PCP - General Family Medicine 11/25/20 01/20/21 Gayatri George, BIT SHAVER [address] [place] [address] PCP - [employer] Attributed 03/02/19 06/01/19 Soila Pineda, ARRANGER ASSEMBLER [address] [place] [address] [facility] PCM+ Seal Delivery Vehicle Team Technician 05/08/18 11/26/18 Neva Velásquez, RN [address] [place] [address] [facility] Community Laboratory Worker 11/29/18 08/15/21 Albaro Kellogg MD [address] [place] [address] Physician Endocrinology 08/01/19 11/17/20 [facility], [facility] 02/04/20 Ralph Wilcox MD [address] [place] [address] Gastroenterology 11/25/20 Otilia Paulson OD [address] [place] [address] Consulting Provider Optometry 11/25/20 [place] [address] Obstetrics and Gynecology 11/25/20 documented as of this encounter
--- OUTSIDE RECORDS SUMMARY | 2024-11-21 15:10 | XMS_ITS | Encounter Summary ---
Author Organization [facility] Address [address] [place] [address] Care Team Providers Care Intake Nurse Name Role Phone Gayatri George APRN Primary Care Provider [phone] Neva Velásquez RN Unavailable Albaro Kellogg MD Unavailable Aging, [facility] Unavailable Ralph Wilcox MD Unavailable Otilia Paulson OD Unavailable [phone] Roselia Abernathy MD Unavailable [phone] Gayatri George APRN Primary Care Provider Gayatri George APRN Unavailable [phone] Encounter Details Date Type Department Care Team (Late st Contact Info) Description 05/01/2019 Scanned Document [facility] Endocrinology [address] [phone] Qi Aponte PA [address] [place] [phone] Social History Tobacco Use Types Packs/Day Years [...] on filedocumented in this encounter Care Teams Intake Nurse Relationship Specialty Start Date End Date Gayatri George APRN PCP - General Family Medicine 07/17/18 11/17/20 Gayatri Geroge APRN PCP - General Family Medicine 11/25/20 01/20/21 Gayatri George APRN [address] [place] [address] PCP - [employer] Attributed 03/02/19 06/01/19 Neva Velásquez, RN [address] [address] [facility] Community Dial Screw Assembler 11/29/18 08/15/21 Albaro Kellogg MD [address] [place] [address] Physician Endocrinology 08/01/19 11/17/20 Aging, [facility] 02/04/20 Ralph Wilcox MD [address] [place] [address] Gastroenterology 11/25/20 Otilia Paulson OD [address] [place] [address] Consulting Provider Optometry 11/25/20 [place] [address] Obstetrics and Gynecology 11/25/20 documented as of this encounter
--- OUTSIDE RECORDS SUMMARY | 2024-11-21 15:10 | XMS_ITS | Encounter Summary ---
Author Organization [facility] Address [address] [place] [address] Care Team Providers Care Senior Loan Processor Name Role Phone Gayatri George APRN Primary Care Provider [phone] Neva Velásquez RN Unavailable Albaro Kellogg MD Unavailable Aging, [facility] Unavailable [phone] Ralph Wilcox MD Unavailable [phone] Otilia Paulson OD Unavailable [phone] Roselia Abernathy MD Unavailable [phone] Gayatri George APRN Primary Care Provider Encounter Details Date Type Department Care Team (Late st Contact Info) Description 09/11/2019 Scanned Document [address] [place] [id number] Gayatri George APRN [address] [place] [address] Social History Tobacco Use Types Packs/Day Years [...] on filedocumented in this encounter Care Teams Senior Loan Processor Relationship Specialty Start Date End Date Gayatri George APRN PCP - General Family Medicine 07/17/18 11/17/20 Gayatri George APRN PCP - General Family Medicine 11/25/20 01/20/21 Neva Velásquez, JAMAR [address] [facility] [address] [place] [address] [facility] Community Final Inspection Supervisor 11/29/18 08/15/21 Albaro Kellogg MD [address] [place] [address] Physician Endocrinology 08/01/19 11/17/20 [facility], [facility] 02/04/20 Ralph Wilcox MD [address] [place] [address] Gastroenterology 11/25/20 Otilia Paulson OD [facility] [place] [address] Consulting Provider Optometry 11/25/20 [place] [address] Obstetrics and Gynecology 11/25/20 documented as of this encounter
--- OUTSIDE RECORDS SUMMARY | 2024-11-21 15:10 | XMS_ITS | Encounter Summary ---
Author Organization [facility] Address [address] [place] [address] Care Team Providers Care Newspaper Carrier Name Role Phone Gayatri George APRN Primary Care Provider [phone] Neva Velásquez RN Unavailable Albaro Kellogg MD Unavailable Aging, [facility] Unavailable Ralph Wilcox MD Unavailable [phone] Otilia Paulson OD Unavailable [phone] Roselia Abernathy MD Unavailable [phone] Gayatri George APRN Primary Care Provider Gayatri George APRN Unavailable [phone] Encounter Details Date Type Department Care Team (Late st Contact Info) Description 05/03/2019 Scanned Document [facility] Endocrinology [address] [phone] Qi Aponte PA [address] [place] [address] [id number] Social History Tobacco Use Types Packs/Day Years [...] on filedocumented in this encounter Care Teams Newspaper Carrier Relationship Specialty Start Date End Date Gayatri George APRN PCP - General Family Medicine 07/17/18 11/17/20 Gayatri George APRN PCP - General Family Medicine 11/25/20 01/20/21 Gayatri George APRN [address] [place] [address] PCP - [employer] Medicare Attributed 03/02/19 06/01/19 Neva Velásquez, RN [address] [address] [facility] Community Half Backer 11/29/18 08/15/21 Albaro Kellogg MD [address] [place] [address] Physician Endocrinology 08/01/19 11/17/20 Aging, [facility] 02/04/20 Ralph Wilcox MD [address] [place] [address] Gastroenterology 11/25/20 Otilia Paulson OD [address] [place] [phone] Consulting Provider Optometry 11/25/20 [place] [address] Obstetrics and Gynecology 11/25/20 documented as of this encounter
--- OUTSIDE RECORDS SUMMARY | 2024-11-21 15:10 | XMS_ITS | Encounter Summary ---
Author Organization [facility] Address [address] [place] [address] Care Team Providers Care Bar Waiter/Waitress Name Role Phone Soila Pineda Unavailable [phone] Gayatri George APRN Primary Care Provider [phone] Neva Velásquez RN Unavailable Albaro Kellogg MD Unavailable Aging, [facility] Unavailable [phone] Ralph Wilcox MD Unavailable [phone] Otilia Paulson OD Unavailable [phone] Roselia Abernathy MD Unavailable [phone] Gayatri George APRN Primary Care Provider [phone] Gayatri George APRN Unavailable [phone] Encounter Details Date Type Department Care Team (Late st Contact Info) Description 09/11/2018 Scanned Document [facility] [address] [place] [phone] Provider, Generic Social History Tobacco Use Types Packs/Day Years [...] on filedocumented in this encounter Care Teams Bar Waiter/Waitress Relationship Specialty Start Date End Date Gayatri George, ANA [address] [facility] 4 [place] [address] PCP - General Family Medicine 07/17/18 11/17/20 Gayatri George, LIVESTOCK FARM MANAGER [address] [address] PCP - General Family Medicine 11/25/20 01/20/21 Gayatri George, LIVESTOCK FARM MANAGER [address] [place] [address] PCP - [employer] Attributed 03/02/19 06/01/19 Soila Pineda, WOOL SAMPLER [address] [facility] 4 [place] [address] ICP PCMH+ Circulation Director 05/08/18 11/26/18 Neva Velásquez, RN [address] [facility] 4 [place] [address] [facility] Community Grants Manager 11/29/18 08/15/21 Albaro Kellogg MD [address] [place] [address] Physician Endocrinology 08/01/19 11/17/20 Aging, [facility] 02/04/20 Ralhp Wilcox MD [address] [place] [address] Gastroenterology 11/25/20 Otilia Paulson OD [address] [place] [address] Consulting Provider Optometry 11/25/20 Ros[place] [address] Obstetrics and Gynecology 11/25/20 documented as of this encounter
--- OUTSIDE RECORDS SUMMARY | 2024-11-21 15:10 | XMS_ITS | Clinical Summary ---
Author Organization [facility] Address [address] [place] [address] Care Team Providers Care Etl Programmer Name Role Phone [facility] Unavailable [phone] Ralph Wilcox MD Unavailable [phone] Otilia Paulson OD Unavailable [phone] Roselia Abernathy MD Unavailable [phone] Allergies Active Allergy Reactions Criticality Noted Date Comments Baclofen Other (See Comments) 02/18/2019 Aphasia Sulfa Antibiotics Swelling Medium 06/12/2017 Medications Medication Sig Dispensed Refills Start Date End Date Status albuterol (PROVENTIL HFA; VENTOLIN HFA) 108 (90 Base) MCG/ACT inhaler Inhale 2 puffs 4 times daily (every 6 hours) as needed for wheezing. Active aspirin enteric coated (ECOTRIN LOW STRENGTH) 81 MG EC tablet Take 81 mg by mouth daily. Active furosemide (LASIX) 40 MG tablet Take 40 mg by mouth daily. Active Blood Glucose Monitoring Suppl KitIndications:Controlle d type 2 diabetes mellitus with diabetic polyneuropathy, with long-term current use of insulin (HCC) USE TO CHECK FSBG 2 X DAILY. 1 kit 01/15/20 19 Active Lancets Thin Misc LancetIndications:Contro lled type 2 diabetes mellitus with diabetic polyneuropathy, with long-term current use of insulin (HCC) Use to check FSBG 2 X daily. 200 lancet 01/17/20 Active lidocaine (XYLOCAINE) 4 % external solutionIndications:Diab etic polyneuropathy associated with type 2 diabetes mellitus ([facility]) Apply topically 4 (four) times a day as needed for mild pain. Do not apply more than 4 times daily. 50 mL 02/01/20 Active magnesium oxide 400 (241.3 Mg) MG Tab tabletIndications:Hypoma gnesemia Take 1 tablet (400 mg total) by mouth daily. 90 tablet 02/16/20 Active Insulin Pen Needle 32G X 4 MM MiscIndications:Type II or unspecified type diabetes mellitus with neurological manifestations, uncontrolled(250.62) ([facility]) Once nightly injection 120 pen needle 11 03/13/20 Active ACCU-CHEK ABNER PLUS stripIndications:Type II or unspecified type diabetes mellitus with neurological manifestations, uncontrolled(250.62) ([facility]) 4 times daily. 120 test strip 11 03/13/20 Active Continuous Blood Gluc Swimming Pool Maintenance (FREESTYLE EMILE 14 DAY READER) DeviceIndications:Type II or unspecified type diabetes mellitus with neurological manifestations, uncontrolled(250.62) ([facility]) Apply 1 Device topically continuous. 1 Device 03/26/20 Active glucose blood (ACCU-CHEK ABNER PLUS) test stripIndications:Control led type 2 diabetes mellitus with diabetic polyneuropathy, with long-term current use of insulin ([facility]) TEST TWICE DAILY 200 test strip 04/11/20 Active polyethylene glycol-electrolytes (NuLYTELY, TRILYTE) 420 g solution MIX AND DRINK UTD 0 03/20/20 Active Insulin Syringe-Needle U-100 (INSULIN SYRINGE 1CC/31GX5/16 ) 31G X 5 1 ML Misc U WITH EPOGEN Q 14 DAYS 1 04/08/20 Active SUPPLY DME MISCIndications:Stage 2 skin ulcer of sacral region ([facility]) Pressure relieving cushion 1 supply 04/17/20 Active Continuous Blood Gluc Sensor (FREESTYLE EMILE 14 DAY SENSOR) MiscIndications:Type II or unspecified type diabetes mellitus with neurological manifestations, uncontrolled(250.62) ([facility]) Apply 1 Device topically continuous. Apply new sensor every 14 days 6 each 3 04/30/20 Active amLODIPine (NORVASC) 10 MG tabletIndications:Essent ial hypertension Take 1 tablet (10 mg total) by mouth daily. 90 tablet 3 05/01/20 Active gabapentin (NEURONTIN) 600 MG tabletIndications:Diabet ic polyneuropathy associated with type 2 diabetes mellitus (HCC) Take 1 tablet (600 mg total) by mouth 3 (three) times a day. 270 tablet 2 05/01/20 Active lisinopril (PRINIVIL,ZeSTRIL) 40 MG tabletIndications:Essent ial hypertension Take 1 tablet (40 mg total) by mouth daily. 90 tablet 3 05/01/20 Active hydrochlorothiazide (HYDRODIURIL) 12.5 MG tabletIndications:Essent ial hypertension Take 1 tablet (12.5 mg total) by mouth daily. 90 tablet 3 05/01/20 Active montelukast (SINGULAIR) 10 MG tabletIndications:Modera te persistent asthma, unspecified whether complicated Take 1 tablet (10 mg total) by mouth nightly. 90 tablet 3 05/01/20 Active PANTOprazole (PROTONIX) 40 MG EC tabletIndications:Gastro esophageal reflux disease, esophagitis presence not specified Take 1 tablet (40 mg total) by mouth daily. 90 tablet 3 05/01/20 Active traZODone (DESYREL) 50 MG tabletIndications:Insomn ia, unspecified type Take 1 tablet (50 mg total) by mouth nightly. 90 tablet 3 05/01/20 Active atorvastatin (LIPITOR) 40 MG tabletIndications:Pure hypercholesterolemia Take 1 tablet (40 mg total) by mouth daily. 90 tablet 3 05/01/20 Active oxyCODONE-acetaminophen (PERCOCET) 5-325 mg per tabletIndications:Arthri tis Take 1 tablet by mouth 2 (two) times a day as needed for severe pain. Max Daily Amount: 2 tablets 30 tablet 05/01/20 Active ferrous Sulfate dried (SLOW IRON) 160 (50 Fe) MG Tab CRIndications:Anemia due to stage 3 chronic kidney disease (HCC) Take 1 tablet (160 mg total) by mouth every morning with breakfast. 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 90 capsule 3 05/07/20 Active meclizine (ANTIVERT) 12.5 MG tabletIndications:Vertig o Take 1 tablet (12.5 mg total) by mouth 3 (three) times a day as needed for dizziness. 30 tablet 05/17/20 Active insulin lispro (HumaLOG KWIKPEN) 100 UNIT/ML pen injectionIndications:Unc ontrolled type 2 diabetes mellitus with peripheral neuropathy Inject 0.2 mL (20 Units total) under the skin 3 (three) times a day before meals. 20 pen 3 07/04/20 Active epoetin sally (EPOGEN,PROCRIT) 37923 UNIT/ML injectionIndications:Ane loy, chronic renal failure, stage 4 (severe) ([facility]) Inject 2 mL (20,000 Units total) under the skin every 14 days (2 weeks). 14 mL 1 07/08/20 Active SYRINGE-NEEDLE, DISP, 3 ML (B-D 3CC LUER-LUCRETIA SYR 25GX1/2 ) 25G X 1-1/2 3 ML MiscIndications:Anemia, chronic renal failure, stage 4 (severe) ([facility]) Please use to inject Procrit Q 14 days. 14 Syringe 1 07/08/20 Active PANTOprazole (PROTONIX) 40 MG EC tabletIndications:Gastro esophageal reflux disease, esophagitis presence not specified TAKE 1 TABLET(40 MG) BY MOUTH EVERY MORNING BEFORE BREAKFAST 90 tablet 07/12/20 Active fluticasone-salmeterol (ADVAIR DISKUS) 250-50 mcg/inh diskus inhalerIndications:Moder ate persistent asthma, unspecified whether complicated Inhale 1 puff 2 (two) times a day. 3 Inhaler 3 07/12/20 Active triamcinolone (KENALOG) 0.1 % creamIndications:Dermati tis Apply topically 2 (two) times a day as needed for rash. To dry areas on ears. 30 g 07/19/20 Active buPROPion (WELLBUTRIN XL) 150 MG 24 hr tabletIndications:Renée tang mild episode of major depressive disorder without prior episode Take 1 tablet (150 mg total) by mouth every morning. Swallow whole; do not crush, chew, or divide. 90 tablet 3 07/19/20 Active LANTUS SOLOSTAR 100 UNIT/ML pen injectionIndications:Typ e II or unspecified type diabetes mellitus with neurological manifestations, uncontrolled(250.62) ([facility]) INJECT SUBCUTANEOUSLY 20 UNITS DAILY 10 pen 3 08/20/20 Active dulaglutide (TRULICITY) 0.75 MG/0.5ML subcutaneous injectionIndications:Con trolled type 2 diabetes mellitus with diabetic polyneuropathy, with long-term current use of insulin ([facility]) Inject 0.5 mL (0.75 mg total) under the skin once a week. 4 pen 3 08/19/20 19 Active carvedilol (COREG) 6.25 MG tabletIndications:Essent ial hypertension TAKE 2 TABLETS(12.5 MG) BY MOUTH TWICE DAILY WITH MEALS 360 tablet 10/07/19 Active DULoxetine (CYMBALTA) 60 MG capsuleIndications:Diabe tic polyneuropathy associated with type 2 diabetes mellitus ([facility]) Take 1 capsule (60 mg total) by mouth daily. 90 capsule 1 10/17/19 Active Active Problems Problem Noted Date Diagnosed Date Speech disturbance 01/07/2019 Rigidity (muscles) 01/07/2019 Weakness 12/24/2018 Assessment & Plan (12/24/2018 1:27 PM EDT): I think that she would benefit from home PT and nursing services. Referral to home care placed. Follow up in 2 months. Depression 12/24/2018 Assessment & Plan (06/14/2019 1:00 PM EDT): Mood has been stable. Continue with Wellbutrin 150 mg daily and duloxetine 60 mg daily. Follow-up in 4 months. Assessment & Plan (02/20/2019 3:33 PM EDT): Followed by psychiatry, recently started on Wellbutrin. Continue with this and sertraline 200 mg daily. Assessment & Plan (12/24/2018 1:27 PM EDT): She is followed by psychiatry and therapy, has an upcoming appointment with them. She will discussed starting Wellbutrin with her psychiatrist. Diabetic polyneuropathy asso ciated with type 2 diabetes mellitus 11/23/2018 Assessment & Plan (06/14/2019 12:56 PM EDT): Some improvement since starting Cymbalta, continue with 60 mg daily. Mood also seems okay on this. Follow-up in 4 months. Assessment & Plan (05/17/2019 4:50 PM EDT): She is only been on the Cymbalta for about 2 weeks now, she is willing to give it more time. Increase to 60 mg daily. She is leaving for [place] next week, will be gone for 1 month. She will follow-up with me when she returns. Assessment & Plan (05/01/2019 3:41 PM EDT): Neurology recommended a trial of Cymbalta. Tapering instructions given for Zoloft. After tapered start Cymbalta 30 mg daily. She is leaving for [place] on 05/21 for 1 month, follow-up prior to this. Assessment & Plan (02/20/2019 3:34 PM EDT): Followed by neurology. Continue with lower dose of baclofen and gabapentin 600 mg 3 times daily. Assessment & Plan (12/24/2018 1:28 PM EDT): She is not noticing much improvement with the increase in gabapentin, discussed increasing this further but she has an appointment with neurology on Monday. She will further discuss this with them. Assessment & Plan (11/23/2018 12:49 PM EST): She is currently taking the gabapentin only twice daily, increase to 600 mg 3 times daily. She is also interested in seeing a neurologist because she was seeing one when she lived in [place]. She states that she had an EMG at one point. I placed a referral to neurology for further evaluation. Gastroesophageal reflux disease 09/13/2018 Assessment & Plan (11/08/2018 5:49 PM EST): Continue with pantoprazole 40 mg daily and follow-up with GI. Assessment & Plan (09/13/2018 12:45 PM EST): Start pantoprazole 40 mg daily. Referred to GI for further evaluation. F/u in 2 months. CKD stage 3 due to type 2 diabetes mellitus 09/01 Assessment & Plan (07/19/2019 12:10 PM EDT): Followed by Dr. Baum. Assessment & Plan (04/18/2019 7:30 AM EDT): Followed by nephrology. Pure hypercholesterolemia 08/15/2018 Assessment & Plan (06/14/2019 12:58 PM EDT): Continue with atorvastatin 40 mg daily, check labs. Assessment & Plan (08/15/2018 6:09 PM EST): Continue with Atorvastatin, cholesterol well controlled. Arthritis 08/15/2018 Assessment & Plan (05/01/2019 3:41 PM EDT): She is requesting a refill on her oxycodone, lower back has been bothersome. She uses this very sparingly. Last filled in November. Rx sent. Assessment & Plan (08/15/2018 6:08 PM EST): Generalized arthritic pain and pain in her right shoulder. I am limited as to what I can give her for pain due to her kidney function. She uses the pain medication sparingly. [employer] reviewed. She is willing to try Tramadol instead of Percocet. Follow up in 1 month. Shortness of breath 08/15/2018 Assessment & Plan (08/15/2018 6:10 PM EST): Shortness of breath specifically after eating. Order placed for a barium swallow to screen for a hiatal hernia. [facility] prescription opiate use 08/15/2018 Moderate persistent asthma 07/19/2018 Assessment & Plan (08/15/2018 6:02 PM EST): Some improvement with the addition of Singular. She has been on Advair in the past but stopped taking this. She will resume the Advair. F/u in 1 month, I will consider a PFT at that time. Assessment & Plan (07/19/2018 6:00 PM EDT): Currently using her rescue inhaler multiple times a day. Add Trini, follow up in a couple of week. Will reassess and consider PFT and possibly referral to pulmonary at that time. Acute pain of right shoulder 07/19/2018 Assessment & Plan (07/19/2018 6:02 PM EDT): Patient states that she has an order for PT. X-ray order placed due to the severity of her pain and decreased ROM after falling. Percocet refilled for her to use as needed for severe pain, she is using the sparingly. Trigger ring finger of right hand 07/19/2018 Assessment & Plan (07/19/2018 6:01 PM EDT): Referred to the hand specialist for evaluation. Osteomyelitis of toe of left foot 12/26/2017 Uncontrolled type 2 diabetes mellitus with peripheral neuropathy 11/10/2017 Overview (04/18/2019): Followed by Dr. Kellogg Assessment & Plan (07/19/2019 12:10 PM EDT): Followed by endocrinology, she has an upcoming appointment on 08/02. Assessment & Plan (06/14/2019 12:57 PM EDT): Followed by Dr. Kellogg, she ran out of her insulin while she was away on vacation. She has since resumed this. Highest blood sugar readings have been in the 350s. I recommend she touch base with Dr. Kellogg, continue with current medications. Assessment & Plan (04/18/2019 7:32 AM EDT): Followed by endocrinology. Assessment & Plan (02/20/2019 3:34 PM EDT): She has an appointment with endocrine on 03/13. I am concerned due to her episodes of hypoglycemia. Decrease evening NPH dose to 20 units. Decrease morning NPH dose to 40 units if blood sugar is over 150. A1c today is 6.8. Await endocrinology recommendations. Follow-up in 6 weeks. Assessment & Plan (12/24/2018 1:28 PM EDT): Continue to work on diet, she has an upcoming appointment with the television maintenance man. Repeat A1c due in January. Assessment & Plan (11/23/2018 12:51 PM EST): She is planning for a colonoscopy in November. Recommend taking the morning dose of insulin the day prior to her colonoscopy and holding the evening dose. Day of colonoscopy take morning dose with first meal after procedure. She states understanding. Assessment & Plan (11/08/2018 5:50 PM EST): A1c was 6.8 when it was last checked in July, repeat labs. Assessment & Plan (08/15/2018 6:01 PM EST): Continue with current insulin regimen, A1C well controlled. 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 Baum, he recently placed an order for iron infusions. Patient reports she has not heard back about this. I had one of our nurses reach out to the infusion center, they scheduled her an appointment for Monday at 1 PM. Assessment & Plan (04/18/2019 7:31 AM EDT): Her french instructor ordered repeat blood work, await these results. 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 Assessment & Plan (02/20/2019 3:32 PM EDT): Her french instructor ordered repeat labs, anemia noted to be worse. He is increasing her Epogen. She has follow-up with him in April. Assessment & Plan (12/24/2018 1:27 PM EDT): Followed by nephrology, had recent labs. Epogen dosing was increased. She has follow-up at the end of December. Assessment & Plan (09/13/2018 12:49 PM EST): Patient had blood work done that was ordered by her french instructor. Noted to be iron deficient, she will start 325 mg of ferrous sulfate daily. Assessment & Plan (08/15/2018 6:09 PM EST): Check iron panel, if this is normal I will start Epogen. Her french instructor is in agreement. Vitamin D deficiency 06/26/2017 Abnormal iron saturation 06/26/2017 Anemia 06/26/2017 Assessment & Plan (06/14/2019 1:00 PM EDT): Followed by Dr. Baum, our nursing staff set up an iron infusion appt for her. Hgb currently stable. Assessment & Plan (05/01/2019 3:42 PM EDT): Dr. Baum recently got blood work, ordered IV iron infusions. Patient will call to get these set up. Also recommend oral iron if she can tolerate it. She will follow-up with Dr. Baum in June. Assessment & Plan (11/23/2018 12:51 PM EST): She has finished 5 iron infusions, hemoglobin is slightly improved today. Has an upper endoscopy and colonoscopy scheduled with GI. Follow-up with me in 1 month. Assessment & Plan (11/08/2018 5:48 PM EST): He baseline hgb is around 9. She is currently on Epogen injections twice a month and oral iron daily. Hgb in office today was 7.7. She denies any shortness of breath. She will go for a full set of labs today to confirm this hemoglobin as well as check her iron levels. I also spoke with [facility] and she has an appointment with them on November 15. If I need to initiate IV iron infusions in the meantime I can. I will follow-up with her tomorrow when her blood work is resulted. Essential hypertension 06/13/2017 Overview (02/20/2019): Followed by Dr. Tony. Assessment & Plan (04/18/2019 7:31 AM EDT): Followed by Dr. Tony, blood pressure borderline high today. Repeat at next visit in 2 weeks. Assessment & Plan (02/20/2019 3:32 PM EDT): Followed by Dr. Tony. BP well controlled carvedilol twice daily, furosemide 40 mg daily, hydrochlorothiazide 12.5 mg daily, amlodipine 10 mg daily, and lisinopril 40 mg daily. Assessment & Plan (11/08/2018 5:49 PM EST): Blood pressure well controlled on amlodipine 10 mg daily, carvedilol 6.25 mg twice daily, lisinopril 40 mg daily and hydrochlorothiazide 12.5 mg daily. Assessment & Plan (07/19/2018 6:01 PM EDT): BP borderline high on exam, will repeat at follow up in a couple of weeks. Continue with current medication at this time. 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 Resolved Problems Problem Noted Date Diagnosed Date Resolved Date Stage 2 skin ulcer of sacral region 04/18/2019 06/14/2019 Assessment & Plan (05/01/2019 3:41 PM EDT): Much improved, almost completely healed. Continue with topical zinc daily. Assessment & Plan (04/18/2019 7:30 AM EDT): Prescription for pressure relieving pad given to patient. Also recommend applying [id number] zinc oxide twice daily. Follow-up in 2 weeks for reassessment. Follow-up surgery care 01/13/201802/20 Sexual dysfunction in females 01/11/2018 02/20/2019 Encounters Date Type Department Care Team Description 11/05/2024 Telephone [facility] [address] [id number] Garry Chung 09/26/2024 Telephone [facility] [address] [address] Garry Chung 08/21/2024 Telephone [facility] [address] [place] [address] Garry Chung from Last 3 Months Family History Medical History Relation Name Comments COPD Mother Diabetes Mother at 70 Heart attack Mother 60's x3 Hypertension Mother Stroke Mother 60's x5 Colon cancer Paternal Grandmother Relation Name Status Comments Mother Paternal Grandmother mi d 70s Social History Tobacco Use Types Packs/Day Years Used Date Smoking Tobacco: Some Days Cigarettes Last attempted to quit: 2014 Smokeless Tobacco: Never Tobacco Cessation:Ready to Q uit: No; Counseling Given: Yes Alcohol Use Standard Drinks/Week Comments Yes 0 (1 standard drink = 0.6 oz pur e alcohol) very rare, special occasion Sex and Gender Information Value Date Recorded Sex Assigned at Not on file Gender Identity Not on file Sexual Orientation Not on file Last Filed Vital Signs Vital Sign Reading Time Taken Comments Blood Pressure 157/83 08/02/2019 2:47 PM EDT Pulse 78 08/02/2019 2:47 PM EDT Temperature 36.8 ??C (98.3 ??F) 07/19/2019 11:01 AM E DT Respiratory Rate 18 07/19/2019 11:01 AM EDT Oxygen Saturation 99% 07/19/2019 11:01 AM EDT Inhaled Oxygen Concentration - - Weight 96.2 kg (212 lb) 08/02/2019 2:47 PM EDT Height 167.6 cm (5' 6 ) 08/02/2019 2:47 PM EDT Body Mass Index 34.22 08/02/2019 2:47 PM EDT Plan of Treatment Health Maintenance Due Date Last Done Comments Hepatitis C Virus Screening 1960 Microalbumin/Creatinine Ratio Urine 1978 DTaP/Tdap/Td Vaccines (1 - Tdap) 1979 Pneumococcal Vaccines 50+ (1 of 2 - PCV) 1979 Zoster (Shingles) Vaccine (1 of 2) 2010 Mammogram 06/12/2019 06/12/2018 Hemoglobin A1C 10/31/2019 04/30/2019, 0511/2018, 11/08/2018, Additional history exists Ophthalmology Exam 04/02/2020 04/02/2019 (P reviously Completed), 04/02/2019 Creatinine with GFR 04/22/2020 04/22/2019, 01/08/2019, 01/06/2019, Additional history exists Foot Exam 07/09/2020 07/09/2019 (Prev iously Completed), 03/13/2019, 08/14/2018 (Previously Completed), Additional history exists Lipid Panel 07/09/2020 07/09/2019, 1005/2019, 07/24/2018, Additional history exists RSV Vaccine 60 years and older and Patients (1 - Risk 60-74 years 1-dose series) 2020 Pap Smear (Ages 21-65) 05/02/2021 05/02/2018 Influenza Vaccine 05/02/2024 COVID-19 Vaccine (2023- season) 2024 Colonoscopy 12/10/2028 12/10/2018 HIV Screening Completed 06/13/2017 Hepatitis B Vaccines Aged Out No long er eligible based on patient's age to complete this topic Procedures Procedure Name Priority Date/Time Associated Diagnosis Comments LIPID PANEL REFLEX DIRECT LDL Routine 07/09/2019 10:45 AM EDT Coronary artery disease due to lipid rich plaque POCT GLYCOSYLATED HEMOGLOBIN (HGB A1C) Routine 04/30/2019 8:51 AM EDT Uncontrolled type 2 diabetes mellitus with peripheral neuropathy (HCC) BASIC METABOLIC PANEL Routine 04/22/2019 1:11 PM EDT CKD stage 3 due to type 2 diabetes mellitus (HCC) HX OPHTHALMOLOGY TESTING PROCEDURES Routine 04/02/2019 HX GASTROENTEROLOGY COLONOSCOPY-SCAN Routine 12/10/2018 MM MAMMO SCREENING W/ TOMOSYNTHESIS BILATERAL Routine 06/12/2018 9:04 AM EDT Breast screening THINPREP PAP TEST (BLOCK HANDLER) WITH HPV REFLEX Routine 05/02/2018 12:00 AM EDT HIV 1/2 AG/AB CMIA REFLEX TO CONFIRMATION Routine 06/13/2017 9:51 AM EDT Encounter to establish care from Last 3 Months or Most Recently Relevant to Health Maintenance Results * (ABNORMAL) Lipid Panel Reflex Direct LDL ([facility]) (07/09/2019 10:45 AM EDT) Cholesterol, Total 83 <200 mg/dL [facility] Cholesterol, HDL 41(L) >50 mg/dL [facility] Triglycerides 128 <150 mg/dL [facility] LDL Cholesterol 21 mg/dL (calc) [facility] Comment: Reference range: <100 Desirable range <100 mg/dL for primary prevention; ?? <70 mg/dL for patients with CHD or diabetic patients with > or = 2 CHD risk factors. LDL-C is now calculated using the Mumtaz-Urvashi calculation, which is a validated novel method providing better accuracy than the Friedewald equation in the estimation of LDL-C. Mumtaz SS et al. MILAN. 2013;310(64): 2975-6054 (http://education.Slicethepie/faq/KPX838) Cholesterol/HDL Ratio 2.0 <5.0 (calc) [facility] Non HDL Chol. (LDL+VLDL) 42 <130 mg/dL (calc) [facility] Comment: For patients with diabetes plus 1 major ASCVD risk factor, treating to a non-HDL-C goal of <100 mg/dL (LDL-C of <70 mg/dL) is considered a therapeutic option. Blood specimen (specimen) 07/09/2019 10:45 AM EDT 07/09/2019 10:45 AM EDT Narrative [facility] - 07/10/2019 12:49 AM EDT FASTING:YES FASTING: YES Resulting Agency Comment Performing Organization Information: ?Site ID: [id number] ?Name: [employer] ?Address: [address] [place] [address], [place] [address] ?Director: Shawn Goel MD Brenda Tony MD LAB BLOOD ORDERABLES [facility] [address], [place] [address] * (ABNORMAL) POCT Glycosylated Hemoglobin (Hb A1C) (04/30/2019 8:51 AM EDT) Hemoglobin A1C 7.6(A) 4.0 - 6.0 % Lot Number 1 Open Die Inspector Pass Pass Blood specimen (specimen) 04/30/2019 8:51 AM EDT Albaro Kellogg MD POINT OF CARE TEST O RDERABLES * (ABNORMAL) Basic Metabolic Panel (04/22/2019 1:11 PM EDT) Glucose 331(H) 65 - 99 mg/dL [facility] Comment: ? Fasting reference interval For someone without known diabetes, a glucose value >125 mg/dL indicates that they may have diabetes and this should be confirmed with a follow-up test. Blood Urea Nitrogen (BUN) 50(H) 7 - 25 mg/dL [facility] Creatinine 2.05(H) 0.50 - 1.05 mg/dL [facility] Comment: For patients >49 years of age, the reference limit for Creatinine is approximately 13% higher for people identified as -[place]. eGFR Non- 26(L) > OR = 60 mL/min/1. 73m2 [facility] eGFR 30(L) > OR = 60 mL/min/1. 73m2 [facility] BUN/Creatinine Ratio 24(H) 6 - 22 (calc) [facility] Sodium 135 135 - 146 mmol/L [facility] Potassium 5.0 3.5 - 5.3 mmol/L [facility] Chloride 100 98 - 110 mmol/L [facility] CO2 23 20 - 32 mmol/L [facility] Calcium 9.5 8.6 - 10.4 mg/dL [facility] Blood specimen (specimen) 04/22/2019 1:11 PM EDT 04/22/2019 1:11 PM EDT Narrative Resulting Agency Comment Performing Organization Information: ?Site ID: [id number] ?Name: [facility] ?Address: [address] [place] [address], [place] [address] ?Director: Shawn Goel MD Gurjit Baum MD LAB BLOOD ORDERABLES [facility] [address] [facility] 3rd Floor, [place] [address] * OPHTHALMOLOGY TESTING PROCEDURES (04/02/2019) External Provider HX AMB PROCEDURES * HX GASTROENTEROLOGY COLONOSCOPY-SCAN (12/10/2018) Gayatri George APRN HX AMB PROCEDURES * MM Breast tomosynthesis screening-Bilateral (06/12/2018 9:04 AM EDT) Anatomical Region Laterality Modality Breast Bilateral Mammography 06/12/2018 9:16 AM EDT Impressions 06/12/2018 9:18 AM EDT No mammographic evidence of malignancy. ?? In the absence of clinical findings, next routine screening mammogram would be recommended in one year. ?? BI-RADS 2: BENIGN. ?? nd ?? Narrative 06/12/2018 9:18 AM EDT MM MAMMO SCREENING W/ TOMOSYNTHESIS BILATERAL: 06/12/2018 8:43 AM MAMMOGRAPHY WITH STANDARD DIGITAL VIEWS AND TOMOSYNTHESIS. TECHNIQUE: Digital views were obtained. ??Digital breast tomosynthesis was also performed. ??Computer aided detection performed. ?? CLINICAL HISTORY: Screening. Breast screening COMPARISON: None. This is a new baseline exam. FINDINGS: There are scattered areas of fibroglandular density. No suspicious mass, suspicious architectural distortion, or suspicious calcium. ??Benign findings. ?? Roselia Abernathy MD IMG MAMMOGRAPHY O RDERABLES * ThinPrep Pap Test (Railroad Firer/Fireman) with HPV Reflex (05/02/2018 12:00 AM EDT) Clinical Information [facility] Comment:Normal exam LMP: NA [facility] Previous PAP: NA [facility] Previous Biopsy NA [facility] Source: Cervix [facility] Statement of Adequacy: [facility] Comment: Satisfactory for evaluation. Endocervical/transformation zone component absent. Interpretation/Resu lt: [facility] Comment:Negative for intraep ithelial lesion or malignancy. Comment: [facility] Comment: This Pap test has been evaluated with computer assisted technology. Hand Finisher: [facility] Comment: [place], CT(ASCP) CT screening location: [address] ??[address] Comment [facility] Comment: EXPLANATORY NOTE: The Pap is a screening test for cervical cancer. It is not a diagnostic test and is subject to false negative and false positive results. It is most reliable when a satisfactory sample, regularly obtained, is submitted with relevant clinical findings and history, and when the Pap result is evaluated along with historic and current clinical information. 05/02/2018 05/03/2018 11: 36 PM EDT Narrative Resulting Agency Comment Performing Organization Information: ?Site ID: [id number] ?Name: [facility] ?Address: [address] [place] [address], [place] [address] ?Director: Shawn Goel MD Roselia Abernathy MD PATHOLOGY/CYTOLOG Y ORDERABLES Performing Organization Address [facility] Co de Phone Number [employer] [address], [place] [address] * HIV 1/2 Ag/Ab CMIA Reflex to Confirmation (06/13/2017 9:51 AM EDT) HIV 1/2 Ag/Ab CMIA Negative Negative [facility] Comment: Results show no evidence of infection by HIV 1/2. If clinically indicated, repeat CMIA or test by nucleic acid amplification. Performed at [facility], [place], [place] ??CT License [id number] ??CLIA [id number] Blood specimen (specimen) 06/13/2017 9:51 AM EDT 06/13/2017 1:00 PM EDT Alison Aguirre CAR PACKER LAB BLOOD [facility]AB [facility] from Last 3 Months or Most Recently Relevant to Health Maintenance Advance Directives * Full Code (Latest Code Status on File) Date Activated Date Inactivated Comments 01/07/2019 10:11 AM * Full Code Date Activated Date Inactivated Comments 12/26/2017 3:41 PM 02/06/2018 1:44 PM Question Answer Comments Decision Thoroughly Discussed with: Patient Care Teams Etl Programmer Relationship Specialty Start Date End Date [facility] 02/04/20 Ralph Wilcox MD [address] [place] [address] Gastroenterology 11/25/20 Otilia Paulson OD [address] [place] [address] Consulting Provider Optometry 11/25/20 [place] [address] Obstetrics and Gynecology 11/25/20
--- OUTSIDE RECORDS SUMMARY | 2024-11-21 15:10 | XMS_ITS | Encounter Summary ---
Author Organization [facility] Address [address] [place] [address] Care Team Providers Care Theater Teacher Name Role Phone Soila Pineda MSW Unavailable Gayatri George APRN Primary Care Provider [phone] Neva Velásquez RN Unavailable Albaro Kellogg MD Unavailable Aging, [place] [facility] Unavailable Ralph Wilocx MD Unavailable Otilia Paulson OD Unavailable [phone] Roselia Abernathy MD Unavailable Gayatri George APRN Primary Care Provider [phone] Gayatri George APRN Unavailable [phone] Encounter Details Date Type Department Care Team (Late st Contact Info) Description 09/11/2018 Scanned Document [address] [place] [phone] Provider, External, [address] [place] [address] Social History Tobacco Use Types Packs/Day Years [...] on filedocumented in this encounter Care Teams Theater Teacher Relationship Specialty Start Date End Date Gayatri George, ETHICS MANAGER [address] [place] [address] PCP - General Family Medicine 07/17/18 11/17/20 Gayatri George, ETHICS MANAGER [address] [address] PCP - General Family Medicine 11/25/20 01/20/21 Gayatri George, ETHICS MANAGER [address] [place] [address] PCP - United Medicare Attributed 03/02/19 06/01/19 Soila Pineda, SORT LINE [address] [place] [address] [facility] PCM+ Deliver Driver 05/08/18 11/26/18 Neva Velásquez, RN [address] [place] [address] [facility] Community Medical Transcription Radiology 11/29/18 08/15/21 Albaro Kellogg MD [address] [place] [address] Physician Endocrinology 08/01/19 11/17/20 Aging, [place] [facility] 02/04/20 Ralph Wilcox MD [address] [place] [address] Gastroenterology 11/25/20 Otilia Paulson OD [address] [place] [address] Consulting Provider Optometry 11/25/20 [place] [address] Obstetrics and Gynecology 11/25/20 documented as of this encounter
--- OUTSIDE RECORDS SUMMARY | 2024-11-21 15:10 | XMS_ITS | Encounter Summary ---
Author Organization [facility] Address [address] [place] [address] Care Team Providers Care Corporate Trainer Name Role Phone Gayatri George APRN Primary Care Provider [phone] Neva Velásquez RN Unavailable Albaro Kellogg MD Unavailable A[facility], [facility] Unavailable [phone] Ralph Wilcox MD Unavailable Otilia Paulson OD Unavailable [phone] Roselia Abernathy MD Unavailable Gayatri George SITE ADMINISTRATOR Primary Care Provider [phone] Gayatri George APRN Unavailable [phone] Reason for Visit * Reason Comments Medication Refill Encounter Details Date Type Department Care Team (Late st Contact Info) Description 01/28/[address] [place] [phone] Gayatri George, SITE ADMINISTRATOR [address] [place] [address] Insomnia, unspecified type Social History Tobacco Use Types Packs/Day Years [...] documented as of this encounter Visit Diagnoses Diagnosis Insomnia, unspecified type documented in this encounter Care Teams Corporate Trainer Relationship Specialty Start Date End Date Gayatri George APRN PCP - General Family Medicine 07/17/18 11/17/20 Gayatri George APRN PCP - General Family Medicine 11/25/20 01/20/21 Gayatri George APRN [address] [place] [address] PCP - United Medicare Attributed 03/02/19 06/01/19 Neva Velásquez, JAMAR [address] [facility] 4 [place] [address] [facility] Community Metal Mover 11/29/18 08/15/21 Albaro Kellogg MD [address] [place] [address] Physician Endocrinology 08/01/19 11/17/20 [facility] [place] [facility] 02/04/20 Ralph Wilcox MD [address] [place] [address] Gastroenterology 11/25/20 Otilia Paulson OD [address] [place] [address] Consulting Provider Optometry 11/25/20 [place] [address] Obstetrics and Gynecology 11/25/20 documented as of this encounter
--- OUTSIDE RECORDS SUMMARY | 2024-11-21 15:10 | XMS_ITS | Encounter Summary ---
Author Organization [facility] Address [address] [place] [address] Care Team Providers Care Felt Finishing Supervisor Name Role Phone Soila Pineda MSW Unavailable [phone] Gayatri George APRN Primary Care Provider [phone] Neva Velásquez RN Unavailable Albaro Kellogg MD Unavailable Aging, [place] [facility] Unavailable [phone] Ralph Wilcox MD Unavailable Otilia Paulson OD Unavailable [phone] Roselia Abernathy MD Unavailable Gayatri George APRN Primary Care Provider [phone] Gayatri George APRN Unavailable [phone] Encounter Details Date Type Department Care Team (Late st Contact Info) Description 08/13/2018 Scanned Document [address] [place] [phone] Provider, External, [address] [place] [address] Social History Tobacco Use Types Packs/Day Years [...] on filedocumented in this encounter Care Teams Felt Finishing Supervisor Relationship Specialty Start Date End Date Gayatri George, FARM MACHINE TENDER [address] [place] [address] PCP - General Family Medicine 07/17/18 11/17/20 Gayatri George, FARM MACHINE TENDER [address] [address] PCP - General Family Medicine 11/25/20 01/20/21 Gayatri George, FARM MACHINE TENDER [address] [place] [address] PCP - United Medicare Attributed 03/02/19 06/01/19 Soila Pineda, FOOD ORDER DELIVERY RUNNER [address] [place] [address] [facility] PCM+ Wellness Guide 05/08/18 11/26/18 Neva Velásquez, RN [address] [place] [address] [facility] Community Director Health 11/29/18 08/15/21 Albaro Kellogg MD [address] [place] [address] Physician Endocrinology 08/01/19 11/17/20 Aging, [place] [facility] 02/04/20 Ralph Wilcox MD [address] [place] [address] Gastroenterology 11/25/20 Otilia Paulson OD [address] [place] [address] Consulting Provider Optometry 11/25/20 [place] [address] Obstetrics and Gynecology 11/25/20 documented as of this encounter
--- OUTSIDE RECORDS SUMMARY | 2024-11-21 15:10 | XMS_ITS | Encounter Summary ---
Author Organization [facility] Address [address] [place] [address] Care Team Providers Care Sample Room Supervisor Name Role Phone Gayatri George APRN Primary Care Provider [phone] Neva Velásquez RN Unavailable Albaro Kellogg MD Unavailable Aging, [facility] Unavailable Ralph Wilcox MD Unavailable [phone] Otilia Paulson OD Unavailable [phone] Roselia Abernathy MD Unavailable [phone] Gayatri George APRN Primary Care Provider Gayatri George APRN Unavailable [phone] Encounter Details Date Type Department Care Team (Late st Contact Info) Description 05/01/2019 Scanned Document [facility] Endocrinology [address] [phone] Qi Aponte PA [address] [place] [address] [phone] Social History Tobacco Use Types Packs/Day Years [...] on filedocumented in this encounter Care Teams Sample Room Supervisor Relationship Specialty Start Date End Date Gayatri George APRN PCP - General Family Medicine 07/17/18 11/17/20 Gayatri George APRN PCP - General Family Medicine 11/25/20 01/20/21 Gayatri George APRN [address] [place] [address] PCP - United Medicare Attributed 03/02/19 06/01/19 Neva Velásquez, RN [address] [address] [facility] Community Intranet Support 11/29/18 08/15/21 Albaro Kellogg MD [address] [place] [address] Physician Endocrinology 08/01/19 11/17/20 Aging, [facility] 02/04/20 Ralph Wilcox MD [address] [place] [address] Gastroenterology 11/25/20 Otilia Paulson OD [address] [place] [address] Consulting Provider Optometry 11/25/20 [place] [address] Obstetrics and Gynecology 11/25/20 documented as of this encounter
--- OUTSIDE RECORDS SUMMARY | 2024-11-21 15:11 | XMS_ITS | Encounter Summary ---
Author Organization [facility] Address [address] [place] [address] Care Team Providers Care Teacher Selection Specialist Name Role Phone Gayatri George APRN Primary Care Provider [phone] Neva Velásquez RN Unavailable Albaro Kellogg MD Unavailable Aging, [facility] Unavailable [phone] Ralph Wilcox MD Unavailable Otilia Paulson OD Unavailable [phone] Roselia Abernathy MD Unavailable [phone] Gayatri George APRN Primary Care Provider Gayatri George APRN Unavailable [phone] Encounter Details Date Type Department Care Team (Late st Contact Info) Description 01/15/2019 Telephone [facility] Medical [facility] Neurology [address] [id number] [place] 462 [facility] [address] [place], [place] [phone] Social History Tobacco Use Types Packs/Day Years [...] on file documented as of this encounter Miscellaneous Notes * Telephone Encounter - ELENO Crane - 01/21/2019 9:20 AM EDT I have tried to contact her multiple times this morning, however have not been able to get through,if she calls back please let me know and I will speak with her. In the meantime please see if we can move up her appointment so I can see her again a bit sooner. Thank you * Telephone Encounter - Ciara Gann MA - 01/15/2019 12:13 PM EDT PT CAME INTO THE OFFICE REGARDING BACLIFEN PT STATED THAT SHE HAD A BAD REACTION TO THIS MEDICATIONPT STATED THAT THE HOSPITAL LOWERED THE DOSE TO 5MG 3 TIMES DAILY PT STATED TO MUCH MEDICATION SO PATIENT SCORED MEDICATION AND TOOK HALF 2.5MG 3 TIMES DAILY SHE IS STILL UNCOMFORTABLE WITH THIS MEDICATION AND WOULD LIKE TO DICUSS THIS AND OTHER MEDICATION OPTIONS WITH YOU. PT CONTACT INFORMATION IS FOLLOWS [phone] PLEASE CALL YOU DO NOT HAVE AN APT UNTIL 01/31/2019 documented in this encounter Plan of Treatment Not on file documented as of this encounter Visit Diagnoses Not on filedocumented in this encounter Care Teams Teacher Selection Specialist Relationship Specialty Start Date End Date Gayatri George APRN PCP - General Family Medicine 07/17/18 11/17/20 Gayatri George APRN PCP - General Family Medicine 11/25/20 01/20/21 Gayatri George APRN [address] [place] [address] PCP - United Medicare Attributed 03/02/19 06/01/19 Neva Velásquez, RN [address] [facility] 4 [place] [address] [facility] Community Manager Agricultural 11/29/18 08/15/21 Albaro Kellogg MD [address] [place] [address] Physician Endocrinology 08/01/19 11/17/20 Aging, [facility] 02/04/20 Ralph Wilcox MD [address] [place] [address] Gastroenterology 11/25/20 Otilia Paulson OD [address] [place] [address] Consulting Provider Optometry 11/25/20 [place] [address] Obstetrics and Gynecology 11/25/20 documented as of this encounter
--- OUTSIDE RECORDS SUMMARY | 2024-11-21 15:11 | XMS_ITS | Encounter Summary ---
Author Organization [facility] Address [address] [place] [address] Care Team Providers Care Washcloth Folder Name Role Phone Alison Aguirre APRN Primary Care Provider [phone] Gurjit Baum MD Primary Care Provider [phone] Alison Aguirre APRN Primary Care Provider [phone] Soila Pineda Unavailable [phone] Gayatri George APRN Primary Care Provider Neva Velásquez RN Unavailable Albaro Kellogg MD Unavailable Aging, [facility] Unavailable [phone] Ralph Wilcox MD Unavailable [phone] Otilia Paulson OD Unavailable [phone] Roselia Abernathy MD Unavailable [phone] Gayatri George APRN Primary Care Provider [phone] Gayatri George APRN Unavailable [phone] Encounter Details Date Type Department Care Team (Late st Contact Info) Description 07/11/2017 Scanned Document [address] [phone] Alison Aguirre APRN [address] [place] [address] Social History Tobacco Use Types Packs/Day Years Used Date Smoking Tobacco: Former Smokeless Tobacco: Never Comments:quit smoking x 2yrs [...] on filedocumented in this encounter Care Teams Washcloth Folder Relationship Specialty Start Date End Date Alison Aguirre APRN PCP - General Internal Medicine 06/06/17 10/15/17 Gurjit Baum MD [address] [place] [address] PCP - General Internal Medicine 10/16/17 10/23/17 Alison Aguirre APRN PCP - General Internal Medicine 10/24/17 07/16/18 Gayatri George APRN [address] [place] [address] PCP - General Family Medicine 07/17/18 11/17/20 Gayatri George APRN [address] [place] [address] PCP - General Family Medicine 11/25/20 01/20/21 Gayatri George APRN [address] [place] [address] PCP - United Medicare Attributed 03/02/19 06/01/19 Soila Pineda, STRIPPER SHOVEL OPERATOR [address] [place] [address] [facility] PCMH+ E Commerce Analyst 05/08/18 11/26/18 Neva Velásquez, RN [address] [place] [address] [facility] Community Wash Driller 11/29/18 08/15/21 Albaro Kellogg MD [address] [place] [address] Physician Endocrinology 08/01/19 11/17/20 Aging, [facility] 02/04/20 Ralph Wilcox MD [address] [place] [address] Gastroenterology 11/25/20 Otilia Paulson OD [address] [place] [address] Consulting Provider Optometry 11/25/20 [place] [address] Obstetrics and Gynecology 11/25/20 documented as of this encounter
--- OUTSIDE RECORDS SUMMARY | 2024-11-21 15:11 | XMS_ITS | Encounter Summary ---
Author Organization [facility] Address [address] [place] [address] Care Team Providers Care Insurance Writer Name Role Phone Alison Aguirre APRN Primary Care Provider [phone] Gurjit Baum MD Primary Care Provider [phone] Alison Aguirre APRN Primary Care Provider [phone] Soila Pineda Unavailable [phone] Gayatri George APRN Primary Care Provider Neva Velásquez RN Unavailable Albaro Kellogg MD Unavailable Aging, [facility] Unavailable [phone] Ralph Wilcox MD Unavailable [phone] Otilia Paulson OD Unavailable [phone] Roselia Abernathy MD Unavailable [phone] Gayatri George APRN Primary Care Provider [phone] Gayatri George APRN Unavailable [phone] Encounter Details Date Type Department Care Team (Late st Contact Info) Description 06/28/2017 Scanned Document [address] [phone] Alison Aguirre APRN [address] [place] [address] Social History Tobacco Use Types Packs/Day Years [...] on filedocumented in this encounter Care Teams Insurance Writer Relationship Specialty Start Date End Date Alison Aguirre APRN PCP - General Internal Medicine 06/06/17 10/15/17 Gurjit Baum MD [address] [place] [address] PCP - General Internal Medicine 10/16/17 10/23/17 Alison Aguirre APRN PCP - General Internal Medicine 10/24/17 07/16/18 Gayatri George APRN [address] [place] [address] PCP - General Family Medicine 07/17/18 11/17/20 Gayatri George APRN [address] [place] [address] PCP - General Family Medicine 11/25/20 01/20/21 Gayatri George APRN [address] [place] [address] PCP - United Medicare Attributed 03/02/19 06/01/19 Soila Pineda, COMMERCIAL RELATIONSHIP MANAGER [address] [place] [address] ICP PCMH+ Artillery Maintenance Supervisor 05/08/18 11/26/18 Neva Velásquez, RN [address] [place] [address] [facility] Community Operations Asst 11/29/18 08/15/21 Albaro Kellogg MD [address] [place] [address] Physician Endocrinology 08/01/19 11/17/20 Aging, [facility] 02/04/20 Ralph Wilcox MD [address] [place] [address] Gastroenterology 11/25/20 Otilia Paulson OD [address] [address] Consulting Provider Optometry 11/25/20 [place] [address] Obstetrics and Gynecology 11/25/20 documented as of this encounter
--- OUTSIDE RECORDS SUMMARY | 2024-11-21 15:11 | XMS_ITS | Data Portability ---
Author Organization [place] - [facility] Address [address] [place] [phone] Care Team Providers Care Entry Driver Operator Name Role Phone KACIE GARCIA Primary Care Provider [phone] Assessment Encounter Date Assessment Date Assessment LastModified by Organization Details LastModified Time 12/10/2021 12/10/2021 Overview/History : 61 yo F with onset of sore throat x 1 week. Pain has progressed with swelling to left face extending under neck and painful mass to the anterior to the left ear. Swelling began to spread 2 days ago and is worsening. She denies any difficulty breathing. There have been no fevers, cough, and no dental pain. Saw the PA at the doctor office yesterday who wanted the patient to f/u with an ENT. Exam: Constitutional: General Appearance: well-developed, overweight. NAD. Ambulation: ambulation with walker Psychiatric: good judgement. Normal mood, normal affect. Head: normocephalic, atraumatic Eyes: Conjunctivae is non-injected, no discharge, swelling to left upper lid. Sclera are non-icteric. ENMT: Ears: EACs clear, TM opacified. Nose: nares patent, no sinus tenderness, no nasal discharge Oropharynx: moist mucous membranes, no erythema, no exudates Neck: trachea midline, under neck mainly over left side of neck extending up to the left ear. There is a mass anterior to the left ear that is consolidated and very painful when touched. There is left submandibular swelling and pain as well. Pulmonary: Respiratory effort: no dyspne. LCTA no wheezing, no rales/crackles, no rhonchi Cardiovascular: RRR, normal S1, normal S2, no murmurs, no rubs, no gallops MSK: normal movement of all extremities, no bony abnormalities. Extremities: no cyanosis, no edema Neurologic: A &O x 3. Recent and remote memory normal. Cranial Nerve Testing: cranial nerves II-XII Intact, normal speech without dysarthria DDx considered, but not limited to: Lane's angina, dental abscess, parotitis Work up/Results: None Plan/Discussion: Plans to transport herself to [facility]. Proper Personal Protective Equipment (PPE), including gloves, eye protection and masks were donned and doffed appropriately and all equipment cleaned using approved technique with germicidal disposable wipes prior to and after care of this patient according to [facility]'s infection prevention protocols. Time On Scene with Patient: 03:00:09 [email or web address] Not available 12/22/2021 03:07:34 01/06/2022 01/06/2022 Overview/History :61 YO F new to provider but known to DH She is being seen today for left facial swelling This has actually been ongoing for a few weeks Was seen by our service about 3 weeks ago for same issue She is seen in the presence of her roomate She and her roomate report that it seems to be worsening over last few days She has had some issues w/ eating and she has not eaten today d/t this. She denies any issues breathing at this point She was recc to go to the ER last time she was seen by us but she reports she did not end up going. She almost ended up going today but wanted to see us first Denies fever, chills, breathing diff at this time, cp, abd pain, N.V/D, numbness/tinglin g, changes to her vision. She does have sig pain, cannot fully open her mouth, and feels it is warm. Exam: Vitals: VSS, slight HTN but asx, afebrile Constitutional: 61 yo F who apepars slightly older than stated age. Sif L facial edema, see below. She is not currently in any cute distress and she is not acutely toxic. Eyes: PERRL at 4mm, EOM's intact, No swelling, no discharge, sclera / conjunctiva clear ENT: L side of face w/ some significanlt edema, hard to palpation, slight warmth to palpation, very tender, entirety of oropharynx cannot be visualized, uvula appears midline but L side is becoming occluded, R side appears patent. Of note full oral examination is diff secondary to patient not being able to fully open mouth d/t her edema. no nasal discharge, moist mucous membranes CV: Normal HR, reg rhyhtm, no rubs/ murmurs/ gallops heard, 2+ radial pulses bilaterally, no edema and no calf tenderness BL Pulm: breath sounds clear and equal bilaterally, no wheeze/ rhonchi or rales on auscultation. Speaks in full sentences, no increased work of breathing. GI: Soft, non-tender to palpation. No masses, normal bowel sounds. MS: Self ambulatory patient w/ assistance adn w/ her walker, moves all limbs without deficit, no evidence of trauma Neuro: No focal deficits, A&O x4, CN? s II-XII grossly normal, equal strength BL, gait is not ataxic, no pronator drift Skin: No rash, see facial desctription for abcess description above Psych: Calm, cooperative, non-manic. Pleasant. DDx considered, but not limited to: Dental Abcess w/ airway involvement -believe this most likely given location and involvement Parotitis - think above more likely based on location and involvement Lane's Angina - no woody edema to floor of mouth Work up/Results: N/A Plan/Discussion: Suspeced Dental abscess w/ some airway involvemnet: -Sig sized abscess to L side of face acutely worsening over last couple days per pt and her roomate -Was seen a few weeks ago fr similar issue, unclear how much worse it is since that time -No s/s of systemic toxicity as of yet -Concern for airway involvement today as L side of throat cannot be visualized, anscess seems to be invading L side of throatand concern is that this could progress and occlude airway -Pt understands this and is willing to go to ER, roomate thanks us greatly as she has been attempting to get patient to go for weeks now -Discussed case w/ Dr Kaplan who is in agreement w/ fact that if full airway cannot be visualised pt warrants escalation for possible airway management -Pt going to [facility], expect called to ED and patient handed off to [facility] Pt and roomate is on agreement and verbalizes understanding with the above plans at this time. Pt and roomate has no other questions or concerns at this time. All questiosn are answered to the best of my ability. Pt and roomate thanks us for our visit today. In order to obtain further information and compare any laboratory results/values, I have accessed old patient records. This information was pertinent in my medical decision making today. [email or web address] Not available 01/06/2022 14:03:17 Plan of Treatment Reminders Order Date Submit Date Provider Last Modified By Organization Details Last Modified Time Details Appointments None record ed. Lab None record ed. Referral None record ed. Procedures None record ed. Surgeries None record ed. Imaging None record ed. Medication Orders None record ed. Patient TargetsNo targets recorded. Patient InstructionsNo instructions recorded. Reason for Referral None Reported. Procedures Surgical History Date Name Laterality Status Provider Name and Address Organization Details Recorded Time Breast reduction completed Amy tobias, LOOM FIXER SUPERVISOR [address], [place], [address], [place] [facility] 12/10/2021 16:07:36 amputation of toe completed Amy sweet, LOOM FIXER SUPERVISOR [address], [place], [address], [place] [facility] 12/10/2021 16:07:46 abdominoplasty completed Amy Yoder , LOOM FIXER SUPERVISOR [address], [place], [address], [place] [facility] 12/10/2021 16:07:55 Imaging Results None recorded. Procedure Notes None recorded. Medical Equipment None Reported. Allergies Allergen ID Allergen Name Allergen Category Reaction Reaction Severity Criticality Documentation Date Start Date Code Code System Note Provider Name and Address Organization Details Recorded Time 212351 baclofen medicatio n Not available Not available Not available 12/10/2021 1292 RxNorm Amy Yoder, MARLENI [address] [place] [address], [place] [facility] 15:58:42 [id number] Substance with sulfonami de structure and antibacte rial mechanism of action (substanc e) medicatio n Not available Not available Not available 01/06/2022 05093 8003 SNOMED ELENO Urena [address] [place], [address], [place] [facility] 13:01:26 Medications Name Sig Start Date Stop Date Status Note LastModified by Organization Details LastModified Time delivery fee 12/10 completed Not Available Not Available Not Available cyclobenzapri ne 10 mg tablet 12/10 completed Not Available Not Available Not Available atorvastatin 40 mg tablet active Not Available Not Available Not Available fluticasone 250 mcg-salmetero l 50 mcg/dose blistr powdr for inhalation active Not Available Not Available N ot Available acetaminophen 325 mg tablet active Not Available Not Availabl e Not Available carvedilol 6.25 mg tablet active Not Available Not Available Not Available gabapentin 600 mg tablet 12/10 completed Not Available Not Available Not Available ammonium lactate 12 % lotion 12/10 completed Not Available Not Available Not Available FreeStyle Lancets 28 gauge active Not Available Not Available Not Available famotidine 40 mg tablet 12/10 completed Not Available Not Available Not Available hydralazine 25 mg tablet active Not Available Not Available Not Available aspirin 81 mg tablet,delaye d release active Not Available Not Available No t Available pantoprazole 20 mg tablet,delaye d release active Not Available Not Available No t Available trazodone 100 mg tablet active Not Available Not Available No t Available pantoprazole 40 mg tablet,delaye d release 12/10 completed Not Available Not Available Not Available isosorbide dinitrate 20 mg tablet active Not Available Not Available No t Available trazodone 300 mg tablet 12/10 completed Not Available Not Available Not Available docusate sodium 100 mg capsule active Not Available Not Available Not Available gabapentin 300 mg capsule active Not Available Not Available Not Available bumetanide 1 mg tablet TAKE 1 TABLET BY MOUTH EVERY DAY active Not Available Not Available No t Available montelukast 10 mg tablet active Not Available Not Available Not Available ammonium lactate 12 % topical cream active Not Available Not Availabl e Not Available ergocalcifero l (vitamin D2) 1,250 mcg (50,000 unit) capsule active Not Available Not Available Not Available doxycycline hyclate 100 mg tablet 12/10 completed Not Available Not Available Not Available calcitriol 0.25 mcg capsule active Not Available Not Available Not Available Ventolin HFA 90 mcg/actuation aerosol inhaler active Not Available Not Available Not Available aripiprazole 10 mg tablet 12/10 completed Not Available Not Available Not Available Novolog FlexPen U-100 Insulin aspart 100 unit/mL (3 mL) subcutaneous active Not Available Not Available Not Available aripiprazole 5 mg tablet 12/10 completed Not Available Not Available Not Available bupropion HCl XL 150 mg 24 hr tablet, extended release active Not Available Not Available Not Available lactulose 10 gram/15 mL oral solution active Not Available Not Availabl e Not Available aripiprazole 2 mg tablet 12/10 completed Not Available Not Available Not Available FreeStyle Lite Strips active Not Available Not Available Not Available FeroSul 325 mg (65 mg iron) tablet TAKE 1 TABLET BY MOUTH TWICE DAILY 12/10 completed Not Available Not Available Not Available Lantus Solostar U-100 Insulin 100 unit/mL (3 mL) subcutaneous pen active Not Available Not Available Not Available FreeStyle Jennings Lite kit active Not Available Not Available Not Available desvenlafaxin e succinate ER 100 mg tablet,extend ed release 24 hr 12/10 completed Not Available Not Available Not Available diclofenac 1 % topical gel active Not Available Not Availabl e Not Available Unifine Pentips 32 gauge x 5/32 needle active Not Available Not Available Not Available Vraylar 1.5 mg capsule active Not Available Not Available N ot Available Trulicity 4.5 mg/0.5 mL subcutaneous pen injector active Not Available Not Available Not Available Vitals Date Recorded Oxygen saturation Oxygen saturation in Arterial blood by Pulse oximetry Body temperature Respiratory rate Heart rate Systolic blood pressure Diastolic blood pressure Provider Name and Address Organization Details Last Updated DateTime 2 99 % 99 % 98.2 [degF] 18 /min 82 /min 136 mm[Hg] 84 mm[Hg] Not Available [facility] 16:02:29 Date Recorded Heart rate Respiratory rate Oxygen saturation Oxygen saturation in Arterial blood by Pulse oximetry Body temperature Systolic blood pressure Diastolic blood pressure Provider Name and Address Organization Details Last Updated DateTime 2 90 /min 16 /min 97 % 97 % 99.8 [degF] 162 mm[Hg] 66 mm[Hg] Not Available [facility] 13:04:31 Social History Question Answer Notes LastModified by Organizat ion Details LastModified Time Tobacco Smoking Status Former Smoker Amy Yoder NP [address], [place], [address], [place] [facility] 12/10/2021 16:07:13 Do You Have An Advance Directive? No Information not available 12/10/2021 What Is Your Level Of Alcohol Consumption? None Information not available 12/10/2021 Excessive Alcohol Or Drug Use No Information not available 12/10/2021 Does This Patient Have A PCP? Yes Information not available 12/10/2021 Do You Use Any Illicit Or Recreational Drugs? No Information not available 12/10/2021 How Many Years Have You Smoked Tobacco? 16 Information not available 12/10/2021 Do You Or Have You Ever Used Any Other Forms Of Tobacco Or Nicotine? No Information not available 12/10/2021 Sex: Unknown Functional Status None recorded. Mental Status None recorded. Family History Relationship Description Onset Age of this Age Resolved Age Notes LastModified by Organization Details LastModified Time Mother Heart disease [email or web address] Not available 2021 13:00:52 Maternal Aunt Malignant neoplastic disease crumplik Not available 2021 13:01:08 Medical History Condition Response Diabetes Y Coronary Artery Disease Y CHF Y High Cholesterol Y Hypertension Y Stroke Y Asthma Y Depression Y Gynecological HistoryNo gynecological history recorded. Obstetrics History GPAL:G 0 P 0 0 0 0 Past Encounters Encounter ID Performer Location Encounter Start Date Encounter Closed Date Diagnosis/Indication Diagnosis SNOMED-CT Code Diagnosis ICD10 Code Diagnosis Note [id number] Amy Yoder NP [facility] [address] [place] [address] 12/10/2021 15:57:24 01/10/2022 18:29:44 [id number] ELENO Rosario [facility] [address] [place] [address] 01/06/2022 12:06:10 01/07/2022 11:10:14 Abscess of skin and/or subcutaneous tissue 92581485 L02.91 dental abscess w/ some suspected airway involvemen t. also pt getting to point where she cannot eat. waranting escaltion at this time. see above Health Concerns Section Related Observation LastModified by Organization Detai ls LastModified Time None Recorded Concern Status LastModified by Organization Details LastModified Time None Recorded Advance Directives Directive N: Payers Encounter Date Sequence Insurance Name Policy Number Policy Conde Covered Member ID Conde Member ID Guarantor Name 12/10/2021 2 [place] [facility] Natalie Cutler [id number] Natalie Cutler 12/10/2021 1 [facility] PRIOR TO 2022 - DUAL ELIGIBLE (MEDICARE REPLACEMENT/AD VANTAGE - HMO) Natalie Cutler [id number] Natalie Cutler 01/06/2022 2 [place] [facility] Natalie Cutler [id number] Natalie Cutler 01/06/2022 1 [facility] PRIOR TO 2022 - DUAL ELIGIBLE (MEDICARE REPLACEMENT/AD VANTAGE - HMO) Natalie Cutler [id number] Natalie Cutler Notes Date Note Type Note Provider Name and Address Organization Details Recorded Time 12/10/2021 text/html 61 yo F with onset of sore throat x 1 week. Pain has progressed with swelling to left face extending under neck and painful mass to the anterior to the left ear. Swelling began to spread 2 days ago and is worsening. She denies any difficulty breathing. There have been no fevers, cough, and no dental pain. Saw the PA at the doctor office yesterday who wanted the patient to f/u with an ENT. Amy Yoder NP [address] [place] [address], [address], [place] [facility] 01/08/2022 17:51:27 01/06/2022 text/html 61 YO F new to provider [facility] for left facial swellingThis has actually been ongoing for a few weeksWas seen by our service about 3 weeks ago for same issueShe is seen in the presence of her roomateShe and her roomate report that it seems to be worsening over last few daysShe has had some issues w/ eating and she has not eaten today d/t this. She denies any issues breathing at this pointShe was recc to go to the ER last time she was seen by us but she reports she did not end up going. She almost ended up going today but wanted to see us first Denies fever, chills, breathing diff at this time, cp, abd pain, N.V/D, numbness/tingling , changes to her vision.She does have sig pain, cannot fully open her mouth, and feels it is warm. ELENO Jarrell [address], [place], [address], [place] [facility] 01/06/2022 14:04:29 OBGyn Episode No OBEpisode recorded.
--- OUTSIDE RECORDS SUMMARY | 2024-11-21 15:11 | XMS_ITS | Encounter Summary ---
Author Organization Formerly [facility] Address [address] [place] [address] Care Team Providers Care Lead Driver Name Role Phone Gayatri George APRN Primary Care Provider [phone] Neva Velásquez RN Unavailable Albaro Kellogg MD Unavailable Aging, [facility] Unavailable [phone] Ralph Wilcox MD Unavailable [phone] Otilia Paulson OD Unavailable [phone] Roselia Abernathy MD Unavailable [phone] Gayatri George APRN Primary Care Provider Gayatri George APRN Unavailable [phone] Encounter Details Date Type Department Care Team (Late st Contact Info) Description 03/13/2019 Scanned Document [facility] Endocrinology [address] [phone] Qi Aponte PA [address] [place] [address] [phone] Social History Tobacco Use Types Packs/Day Years [...] on filedocumented in this encounter Care Teams Lead Driver Relationship Specialty Start Date End Date Gayatri George APRN PCP - General Family Medicine 07/17/18 11/17/20 Gayatri George APRN PCP - General Family Medicine 11/25/20 01/20/21 Gayatri George APRN [address] [place] [address] PCP - [employer] Medicare Attributed 03/02/19 06/01/19 Neva Velásquez, RN [address] [address] [facility] Community Associate Creative Director 11/29/18 08/15/21 Albaro Kellogg MD [address] [place] [address] Physician Endocrinology 08/01/19 11/17/20 Aging, [facility] 02/04/20 Ralph Wilcox MD [address] [place] [address] Gastroenterology 11/25/20 Otilia Paulson OD [address] [place] [address] Consulting Provider Optometry 11/25/20 [place] [address] Obstetrics and Gynecology 11/25/20 documented as of this encounter
--- OUTSIDE RECORDS SUMMARY | 2024-11-21 15:11 | XMS_ITS | Encounter Summary ---
Author Organization [facility] Address [address] [place] [address] Care Team Providers Care Scooper Name Role Phone Gayatri George APRN Primary Care Provider [phone] Neva Velásquez RN Unavailable Albaro Kellogg MD Unavailable Aging, [place] [facility] Unavailable [phone] Ralph Wilcox MD Unavailable Otilia Paulson OD Unavailable [phone] Roselia Abernathy MD Unavailable [phone] Gayatri George APRN Primary Care Provider Reason for Visit * Reason Comments Medication Refill Encounter Details Date Type Department Care Team (Late st Contact Info) Description 08/17/2019 Refill [facility] Medical [facility] Endocrinology [address] [phone] Albaro Kellogg MD [address] [place] [phone] Type II or unspecified type diabetes mellitus with neurological manifestations, uncontrolled(250.62) (HCC) Social History Tobacco Use Types Packs/Day Years [...] as of this encounter Visit Diagnoses Diagnosis Type II or unspecified type diabetes mellitus with neurological manifestations, 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, uncontrolled documented in this encounter Care Teams Scooper Relationship Specialty Start Date End Date Gayatri George APRN PCP - General Family Medicine 07/17/18 11/17/20 Gayatri George APRN PCP - General Family Medicine 11/25/20 01/20/21 Neva Velásquez, JAMAR [address] [facility] [address] [place] [address] [facility] Community Garage Laborer 11/29/18 08/15/21 Albaro Kellogg MD [address] [place] [address] Physician Endocrinology 08/01/19 11/17/20 [facility], [facility] 02/04/20 Ralph Wilcox MD [address] [address] Gastroenterology 11/25/20 Otilia Paulson OD [facility] [place] [address] Consulting Provider Optometry 11/25/20 [place] [address] Obstetrics and Gynecology 11/25/20 documented as of this encounter
--- OUTSIDE RECORDS SUMMARY | 2024-11-21 15:11 | XMS_ITS | Encounter Summary ---
Author Organization Formerly [facility] Address [address] [place] [address] Care Team Providers Care Conveyor Belt Installer Name Role Phone Soila Pineda Unavailable [phone] Gayatri George APRN Primary Care Provider [phone] Neva Velásquez RN Unavailable Albaro Kellogg MD Unavailable Aging, [place] [facility] Unavailable [phone] Ralph Wilcox MD Unavailable [phone] Otilia Paulson OD Unavailable [phone] Roselia Abernathy MD Unavailable [phone] Gayatri George APRN Primary Care Provider [phone] Gayatri George APRN Unavailable [phone] Encounter Details Date Type Department Care Team (Late st Contact Info) Description 10/10/2018 Scanned Document [facility] [address] [place] [address] Pulmonary, Scan Social History Tobacco Use Types Packs/Day Years [...] on filedocumented in this encounter Care Teams Conveyor Belt Installer Relationship Specialty Start Date End Date Gayatri George, ANA [address] [facility] [address] [place] [address] PCP - General Family Medicine 07/17/18 11/17/20 Gayatri George, SUMMER BABYSITTER [address] [address] PCP - General Family Medicine 11/25/20 01/20/21 Gayatri George, SUMMER BABYSITTER [address] [place] [address] PCP - [employer] Attributed 03/02/19 06/01/19 Soila Pineda, CLIENT EVALUATOR [address] [facility] [address] [place] [address] [facility] 05/08/18 11/26/18 Neva Velásquez, RN [address] [facility] [address] [place] [address] [facility] Community Net Manager 11/29/18 08/15/21 Albaro Kellogg MD [address] [place] [address] Physician Endocrinology 08/01/19 11/17/20 Aging, [facility] 02/04/20 Ralph Wilcox MD [address] [place] [address] Gastroenterology 11/25/20 Otilia Paulson OD [address] [place] [address] Consulting Provider Optometry 11/25/20 Roselia Abernathy MD [facility] [place] [address] Obstetrics and Gynecology 11/25/20 documented as of this encounter
--- OUTSIDE RECORDS SUMMARY | 2024-11-21 15:11 | XMS_ITS | Encounter Summary ---
Author Organization [facility] Address [address] [place] [address] Care Team Providers Care Svp Business Development Name Role Phone [facility], [place] [facility] Unavailable [phone] Ralph Wilcox MD Unavailable [phone] Otilia Paulson OD Unavailable [phone] Roselia Abernathy MD Unavailable [phone] Encounter Details Date Type Department Care Team (Late st Contact Info) Description 09/26/2024 Telephone CTGI [facility] [address] [place] [id number] Garry Chung Social History Tobacco Use Types Packs/Day Years [...] encounter Miscellaneous Notes * Telephone Encounter - Garry Chung - 09/26/2024 9:09 AM EST LVM Colon recall DH OCS documented in this encounter Plan of Treatment Not on file documented as of this encounter Visit Diagnoses Not on filedocumented in this encounter Care Teams Svp Business Development Relationship Specialty Start Date End Date [facility], [facility] 02/04/20 Ralph Wilcox MD [address] [place] [address] Gastroenterology 11/25/20 Otilia Paulson OD [address] [place] [address] Consulting Provider Optometry 11/25/20 [place] [address] Obstetrics and Gynecology 11/25/20 documented as of this encounter
--- OUTSIDE RECORDS SUMMARY | 2024-11-21 15:11 | XMS_ITS | Encounter Summary ---
Author Organization [facility] Address [address] [place] [address] Care Team Providers Care Animal Care Service Worker Name Role Phone [facility], [place] [facility] [place] [facility] Unavailable [phone] Ralph Wilcox MD Unavailable [phone] Otilia Paulson OD Unavailable [phone] Roselia Abernathy MD Unavailable [phone] Encounter Details Date Type Department Care Team (Late st Contact Info) Description 08/21/2024 Telephone CTGI [facility] [address] [place] [id number] Garry Chung Social History Tobacco Use Types [...] * Telephone Encounter - Garry Chung - 08/21/2024 10:01 AM EST LVM Colon recall DH OCS documented in this encounter Plan of Treatment Not on file documented as of this encounter Visit Diagnoses Not on filedocumented in this encounter Care Teams Animal Care Service Worker Relationship Specialty Start Date End Date [facility], [facility] [place] [facility] 02/04/20 Ralph Wilcox MD [address] [place] [address] Gastroenterology 11/25/20 Otilia Paulson OD [address] [place] [address] Consulting Provider Optometry 11/25/20 [place] [address] Obstetrics and Gynecology 11/25/20 documented as of this encounter
--- OUTSIDE RECORDS SUMMARY | 2024-11-21 15:11 | XMS_ITS | Encounter Summary ---
Author Organization [facility] Address [address] [place] [address] Care Team Providers Care Back Shoe Operator Name Role Phone Gayatri Geroge APRN Primary Care Provider Neva Velásquez RN Unavailable Albaro Kellogg MD Unavailable Aging, [place] For [facility] Unavailable [phone] Ralph Wilcox MD Unavailable [phone] Otilia Paulson OD Unavailable [phone] Roselia Abernathy MD Unavailable [phone] Gayatri George APRN Primary Care Provider + [phone] Gayatri George APRN Unavailable [phone] Encounter Details Date Type Department Care Team (Late st Contact Info) Description 12/19/2018 Scanned Document [facility] OPTHALMOLOGY SCAN Social History Tobacco Use Types Packs/Day Years Used Date Smoking Tobacco: Former Cigarettes Q uit: 2015 Smokeless Tobacco: Never Alcohol Use Standard Drinks/Week [...] on filedocumented in this encounter Care Teams Back Shoe Operator Relationship Specialty Start Date End Date Gayatri George APRN PCP - General Family Medicine 07/17/18 11/17/20 Gayatri George APRN PCP - General Family Medicine 11/25/20 01/20/21 Gayatri George APRN [address] [place] [address] PCP - United Medicare Attributed 03/02/19 06/01/19 Neva Velásquez, JAMAR [address] [facility] 4 [place] [address] [facility] Community Social Professionals 11/29/18 08/15/21 Albaro Kellogg MD [address] [place] [address] Physician Endocrinology 08/01/19 11/17/20 Aging, [facility] 02/04/20 Ralph Wilcox MD [address] [place] [address] Gastroenterology 11/25/20 Otilia Paulson OD [address] [place] [address] Consulting Provider Optometry 11/25/20 [place] [address] Obstetrics and Gynecology 11/25/20 documented as of this encounter
--- OUTSIDE RECORDS SUMMARY | 2024-11-21 15:11 | XMS_ITS | Encounter Summary ---
Author Organization [facility] Address [address] [place] [address] Care Team Providers Care Avionics Systems Repairer Name Role Phone Gayatri George APRN Primary Care Provider [phone] Neva Velásquez RN Unavailable Albaro Kellogg MD Unavailable Aging, [facility] Unavailable Ralph Wilcox MD Unavailable Otilia Paulson OD Unavailable [phone] Roselia Abernathy MD Unavailable Gayatri George APRN Primary Care Provider [phone] Gayatri George APRN Unavailable [phone] Encounter Details Date Type Department Care Team (Late st Contact Info) Description 02/14/2019 Scanned Document [facility]GI [facility] [address] [place] [phone] Ralph [place] MD [address] [place] [address], [place] [address] Social History Tobacco Use Types Packs/Day Years [...] on file documented as of this encounter Procedures Procedure Name Priority Date/Time Associated Diagnosis Comments PATHOLOGY REPORT 02/14/2019 12:0 0 AM EDT documented in this encounter Results * (REPORT) PATHOLOGY REPORT (02/14/2019 12:00 AM EDT) Ralph Wilcox MD PATHOLOGY/CYTOLOGY O RDERABLES documented in this encounter Visit Diagnoses Not on filedocumented in this encounter Care Teams Avionics Systems Repairer Relationship Specialty Start Date End Date Gayatri George, ANA PCP - General Family Medicine 07/17/18 11/17/20 Gayatri George, CLAIM INSPECTOR PCP - General Family Medicine 11/25/20 01/20/21 Gayatri George, CLAIM INSPECTOR [address] [place] [address] PCP - United Medicare Attributed 03/02/19 06/01/19 Neva Velásquez, JAMAR [address] [facility] 4 [place] [address] [facility] Community Reflexologist 11/29/18 08/15/21 Albaro Kellogg MD [address] [place] [address] Physician Endocrinology 08/01/19 11/17/20 Aging, [place] [facility] 02/04/20 Ralph Wilcox MD [address] [place] [address] Gastroenterology 11/25/20 Otilia Paulson OD [address] [place] [address] Consulting Provider Optometry 11/25/20 [place] [address] Obstetrics and Gynecology 11/25/20 documented as of this encounter
--- OUTSIDE RECORDS SUMMARY | 2024-11-21 15:11 | XMS_ITS | Encounter Summary ---
Author Organization [facility] Address [address] [place] [address] Care Team Providers Care Area Mechanic Name Role Phone Alison Aguirre APRN Primary Care Provider [phone] Soila Pineda Unavailable [phone] Gayatri George APRN Primary Care Provider Neva Velásquez RN Unavailable Albaro Kellogg MD Unavailable Aging, [place] For [facility] Unavailable [phone] Ralph Wilcox MD Unavailable [phone] Otilia Paulson OD Unavailable [phone] Roselia Abernathy MD Unavailable [phone] Gayatri George APRN Primary Care Provider + [phone] Gayatri George APRN Unavailable [phone] Encounter Details Date Type Department Care Team (Late st Contact Info) Description 11/09/2017 Scanned Document [facility] Heart & Vascular [place] [facility] - Cardiology [address] [place] [address] Brenda Tony MD [address] [place] [address] Social History Tobacco Use Types Packs/Day Years [...] on filedocumented in this encounter Care Teams Area Mechanic Relationship Specialty Start Date End Date Alison Aguirre APRN PCP - General Internal Medicine 10/24/17 07/16/18 Gayatri George, SLEEVE IRONER [address] [place] [address] PCP - General Family Medicine 07/17/18 11/17/20 Gayatri George, SLEEVE IRONER [address] [employer] [address] [id number] PCP - General Family Medicine 11/25/20 01/20/21 Gayatri George, SLEEVE IRONER [address] [place] [address] PCP - United Medicare Attributed 03/02/19 06/01/19 Soila Pineda, VISUAL EFFECTS ARTIST [address] [facility] [address] [place] [address] [facility] PCM+ Rigger Apprentice 05/08/18 11/26/18 Neva Velásquez, RN [address] [employer] [address] [address] [facility] Community Log Cutter 11/29/18 08/15/21 Albaro Kellogg MD [address] [place] [address] Physician Endocrinology 08/01/19 11/17/20 [facility], [facility] 02/04/20 Ralph Wilcox MD [address] [place] [address] Gastroenterology 11/25/20 tOilia Paulson OD [address] [place] [address] Consulting Provider Optometry 11/25/20 [place] [address] Obstetrics and Gynecology 11/25/20 documented as of this encounter
--- OUTSIDE RECORDS SUMMARY | 2024-11-21 15:11 | XMS_ITS | Encounter Summary ---
Author Organization [facility] Address [address] [place] [address] Care Team Providers Care Media Operator Name Role Phone Alison Aguirre APRN Primary Care Provider [phone] Gurjit Baum MD Primary Care Provider [phone] Alison Aguirre APRN Primary Care Provider [phone] Soila Pineda Unavailable [phone] Gayatri George APRN Primary Care Provider Neva Velásquez RN Unavailable Albaro Kellogg MD Unavailable Aging, [facility] Unavailable [phone] Ralph Wilcox MD Unavailable [phone] Otilia Paulson OD Unavailable [phone] Roselia Abernathy MD Unavailable [phone] Gayatri George APRN Primary Care Provider [phone] Gayatri George APRN Unavailable [phone] Encounter Details Date Type Department Care Team (Late st Contact Info) Description 07/24/2017 Scanned Document [address] [phone] Alison Aguirre APRN [address] [place] [address] Social History Tobacco Use Types Packs/Day Years [...] on filedocumented in this encounter Care Teams Media Operator Relationship Specialty Start Date End Date Alison Aguirre APRN PCP - General Internal Medicine 06/06/17 10/15/17 Gurjit Baum MD [address] [place] [address] PCP - General Internal Medicine 10/16/17 10/23/17 Alison Aguirre APRN PCP - General Internal Medicine 10/24/17 07/16/18 Gayatri George APRN [address] [place] [address] PCP - General Family Medicine 07/17/18 11/17/20 Gayatri George APRN [address] [place] [address] PCP - General Family Medicine 11/25/20 01/20/21 Gayatri George APRN [address] [place] [address] PCP - United Medicare Attributed 03/02/19 06/01/19 Soila Pineda, SAND BLASTER [address] [employer] [address] [place] [address] [facility] PCMH+ Author Agent 05/08/18 11/26/18 Neva Velásquez, RN [address] [employer] [address] [place] [address] [facility] Community Health Technician Hearing 11/29/18 08/15/21 Albaro Kellogg MD [address] [place] [address] Physician Endocrinology 08/01/19 11/17/20 Aging, [facility] 02/04/20 Ralph Wilcox MD [address] [place] [address] Gastroenterology 11/25/20 Otilia Paulson OD [address] [place] [address] Consulting Provider Optometry 11/25/20 [place] [address] Obstetrics and Gynecology 11/25/20 documented as of this encounter
--- OUTSIDE RECORDS SUMMARY | 2024-11-21 15:11 | XMS_ITS | Encounter Summary ---
Author Organization [facility] Address [address] [place] [address] Care Team Providers Care Monument Installer Name Role Phone Alison Aguirre APRN Primary Care Provider [phone] Gurjit Baum MD Primary Care Provider [phone] Alison Aguirre APRN Primary Care Provider [phone] Soila Pineda Unavailable [phone] Gayatri George APRN Primary Care Provider Neva Velásquez RN Unavailable Albaro Kellogg MD Unavailable Aging, [place] For [facility] Unavailable [phone] Ralph Wilcox MD Unavailable [phone] Otilia Paulson OD Unavailable [phone] Roselia Abernathy MD Unavailable [phone] Gayatri George APRN Primary Care Provider [phone] Gayatri George APRN Unavailable [phone] Reason for Visit * Reason Comments Medication Refill Encounter Details Date Type Department Care Team (Late st Contact Info) Description 07/15/[address] [phone] Alison Aguirre APRN [address] [place] [address] Hypertension, unspecified type Social History Tobacco Use Types [...] as of this encounter Visit Diagnoses Diagnosis Hypertension, unspecified type documented in this encounter Care Teams Monument Installer Relationship Specialty Start Date End Date Alison Aguirre APRN PCP - General Internal Medicine 06/06/17 10/15/17 Gurjit Baum MD [address] [place] [address] PCP - General Internal Medicine 10/16/17 10/23/17 Alison Aguirre APRN PCP - General Internal Medicine 10/24/17 07/16/18 Gayatri George APRN [address] [address] PCP - General Family Medicine 07/17/18 11/17/20 Gayatri George APRN [address] [place], [place] [id number] PCP - General Family Medicine 11/25/20 01/20/21 Gayatri George APRN [address] [place] [address] PCP - United Medicare Attributed 03/02/19 06/01/19 Soila Pineda, COMMUNITY RESOURCE OFFICER [address] [place] [address] ICP PCMH+ J2Ee Java Developer 05/08/18 11/26/18 Neva Velásquez, RN [address] [place] [address] ICP Community Pe Manager 11/29/18 08/15/21 Albaro Kellogg MD [address] [place] [address] Physician Endocrinology 08/01/19 11/17/20 Aging, [facility] 02/04/20 Ralph Wilcox MD [address] [place] [address] Gastroenterology 11/25/20 Otilia Paulson OD [address] [place] [address] Consulting Provider Optometry 11/25/20 [place] [address] Obstetrics and Gynecology 11/25/20 documented as of this encounter
--- OUTSIDE RECORDS SUMMARY | 2024-11-21 15:11 | XMS_ITS | Encounter Summary ---
Author Organization [facility] Address [address] [place] [address] Care Team Providers Care Medical Unit Secretary Name Role Phone Alison Aguirre APRN Primary Care Provider [phone] Gurjit Baum MD Primary Care Provider [phone] Alison Aguirre APRN Primary Care Provider [phone] Soila Pineda Unavailable [phone] Gayatri George APRN Primary Care Provider Neva Velásquez RN Unavailable Albaro Kellogg MD Unavailable Aging, [facility] Unavailable [phone] Ralph Wilcox MD Unavailable [phone] Otilia Paulson OD Unavailable [phone] Roselia Abernathy MD Unavailable [phone] Gayatri George APRN Primary Care Provider [phone] Gayatri George APRN Unavailable [phone] Encounter Details Date Type Department Care Team (Late st Contact Info) Description 09/12/2017 Scanned Document [address] [address] Alison Aguirre APRN [address] [place] [address] Social History Tobacco Use Types Packs/Day Years [...] filedocumented in this encounter Care Teams Medical Unit Secretary Relationship Specialty Start Date End Date Alison Aguirre APRN PCP - General Internal Medicine 06/06/17 10/15/17 Gurjit Baum MD [address] [place] [address] PCP - General Internal Medicine 10/16/17 10/23/17 Alison Aguirre APRN PCP - General Internal Medicine 10/24/17 07/16/18 Gayatri George APRN [address] [place] [address] PCP - General Family Medicine 07/17/18 11/17/20 Gayatri George APRN [address] [place] [address] PCP - General Family Medicine 11/25/20 01/20/21 Gayatri George APRN [address] [place] [address] PCP - United Medicare Attributed 03/02/19 06/01/19 Soila Pineda, ELECTRONIC TECHNOLOGIST [address] [employer] [address] [place] [address] ICP PCMH+ Steeplechase Jockey 05/08/18 11/26/18 Neva Velásquez, RN [address] [facility] [address] [place] [address] [facility] Community Lumber Racker 11/29/18 08/15/21 Albaro Kellogg MD [address] [place] [address] Physician Endocrinology 08/01/19 11/17/20 Aging, [facility] 02/04/20 Ralph Wilcox MD [address] [place] [address] Gastroenterology 11/25/20 Otilia Paulson OD [address] [place] [address] Consulting Provider Optometry 11/25/20 [place] [address] Obstetrics and Gynecology 11/25/20 documented as of this encounter
--- OUTSIDE RECORDS SUMMARY | 2024-11-21 15:11 | XMS_ITS | Encounter Summary ---
Author Organization [facility] Address [address] [place] [address] Care Team Providers Care Director Graphics Name Role Phone Alison Aguirre APRN Primary Care Provider [phone] Gurjit Baum MD Primary Care Provider [phone] Alison Aguirre APRN Primary Care Provider [phone] Soila Pineda Unavailable [phone] Gayatri George APRN Primary Care Provider Neva Velásquez RN Unavailable Albaro Kellogg MD Unavailable Aging, [facility] Unavailable +[phone] Ralph Wilcox MD Unavailable [phone] Otilia Paulson OD Unavailable Roselia Abernathy MD Unavailable [phone] Gayatri George APRN Primary Care Provider [phone] Gayatri George APRN Unavailable [phone] Encounter Details Date Type Department Care Team (Late st Contact Info) Description 10/10/2017 Telephone [facility] [address] [place] [phone] Juan Miguel Pollard MD [address] [place] [address] Social History Tobacco Use Types Packs/Day Years [...] on filedocumented in this encounter Care Teams Director Graphics Relationship Specialty Start Date End Date Alison Aguirre APRN PCP - General Internal Medicine 06/06/17 10/15/17 Gurjit Baum MD [address] [place] [address] PCP - General Internal Medicine 10/16/17 10/23/17 Alison Aguirre APRN PCP - General Internal Medicine 10/24/17 07/16/18 Gayatri George APRN [address] [place] [address] PCP - General Family Medicine 07/17/18 11/17/20 Gayatri George APRN [address] [place] [address] PCP - General Family Medicine 11/25/20 01/20/21 Gayatri George APRN [address] [place] [address] PCP - United Medicare Attributed 03/02/19 06/01/19 Soila Pineda, PROBATE LAWYER [address] [facility] [address] [place] [address] [facility] PCMH+ Disaster Recovery Consultant 05/08/18 11/26/18 Neva Velásquez, RN [address] [facility] [address] [place] [address] [facility] Community Chief Drafter 11/29/18 08/15/21 Albaro Kellogg MD [address] [place] [address] Physician Endocrinology 08/01/19 11/17/20 Aging, [facility] 02/04/20 Ralph Wilcox MD [address] [place] [address] Gastroenterology 11/25/20 Otilia Paulson OD [address] [place] [address] Consulting Provider Optometry 11/25/20 [place] [address] Obstetrics and Gynecology 11/25/20 documented as of this encounter
--- OUTSIDE RECORDS SUMMARY | 2024-11-21 15:11 | XMS_ITS | Encounter Summary ---
Author Organization [facility] Address [address] [place] [address] Care Team Providers Care Credit Office Manager Name Role Phone Alison Aguirre APRN Primary Care Provider Soila Pineda INK JET OPERATOR Unavailable [phone] Gayatri George APRN Primary Care Provider Neva Velásquez RN Unavailable Albaro Kellogg MD Unavailable Aging, [place] For [facility] Unavailable [phone] Ralph Wilcox MD Unavailable [phone] Otilia Paulson OD Unavailable [phone] Roselia Abernathy MD Unavailable Gayatri George APRN Primary Care Provider Gayatri George APRN Unavailable [phone] Encounter Details Date Type Department Care Team (Late st Contact Info) Description 11/28/2017 Scanned Document [address] [phone] Alison Aguirre APRN [address] [place] [address] Social History Tobacco Use Types Packs/Day Years [...] on filedocumented in this encounter Care Teams Credit Office Manager Relationship Specialty Start Date End Date Alison Aguirre APRN PCP - General Internal Medicine 10/24/17 07/16/18 Gayatri George, ANA [address] [place] [address] PCP - General Family Medicine 07/17/18 11/17/20 Gayatri George, BALLOON PILOT [address] [employer] [address] [id number] PCP - General Family Medicine 11/25/20 01/20/21 Gayatri George, BALLOON PILOT [address] [place] [address] PCP - United Medicare Attributed 03/02/19 06/01/19 Soila Pineda MSW [address] [employer] [address] [place] [address] [facility]+ Field Horticultural Specialty Grower 05/08/18 11/26/18 Neva Velásquez, RN [address] [employer] [address] [address] [facility] Community Salt Plant Operator 11/29/18 08/15/21 Albaro Kellogg MD [address] [place] [address] Physician Endocrinology 08/01/19 11/17/20 [facility], [facility] 02/04/20 Ralph Wilcox MD [address] [place] [address] Gastroenterology 11/25/20 Otilia Paulson OD [address] [place] [address] Consulting Provider Optometry 11/25/20 [place] [address] Obstetrics and Gynecology 11/25/20 documented as of this encounter
--- OUTSIDE RECORDS SUMMARY | 2024-11-21 15:11 | XMS_ITS | Encounter Summary ---
Author Organization [facility] Address [address] [place] [address] Care Team Providers Care Process Laboratory Specialist Name Role Phone Alison Aguirre APRN Primary Care Provider [phone] Gurjit Baum MD Primary Care Provider [phone] Alison Aguirre APRN Primary Care Provider [phone] Soila Pineda Unavailable [phone] Gayatri George APRN Primary Care Provider Neva Velásquez RN Unavailable Albaro Kellogg MD Unavailable A[facility], [facility] Unavailable [phone] Ralph Wilcox MD Unavailable [phone] Otilia Paulson OD Unavailable [phone] Roselia Abernathy MD Unavailable [phone] Gayatri George APRN Primary Care Provider Gayatri George APRN Unavailable [phone] Encounter Details Date Type Department Care Team (Late st Contact Info) Description 08/07/2017 Scanned Document [address] [address] Alison Aguirre APRN [address] [place] [address] Social History Tobacco Use Types Packs/Day Years [...] on filedocumented in this encounter Care Teams Process Laboratory Specialist Relationship Specialty Start Date End Date Alison Aguirre APRN PCP - General Internal Medicine 06/06/17 10/15/17 Gurjit Baum MD [address] [place] [address] PCP - General Internal Medicine 10/16/17 10/23/17 Alison Aguirre APRN PCP - General Internal Medicine 10/24/17 07/16/18 Gayatri George APRN [address] [place] [address] PCP - General Family Medicine 07/17/18 11/17/20 Gayatri George APRN [address] [place] [address] PCP - General Family Medicine 11/25/20 01/20/21 Gayatri George APRN [address] [place] [address] PCP - United Medicare Attributed 03/02/19 06/01/19 Soila Pineda, POLISHING WHEEL SETTER [address] [place] [address] ICP PCMH+ Peoplesoft Fscm Developer 05/08/18 11/26/18 Neva Velásquez, RN [address] [place] [address] [facility] Community Clothing Trades Workers 11/29/18 08/15/21 Albaro Kellogg MD [address] [place] [address] Physician Endocrinology 08/01/19 11/17/20 Aging, [facility] 02/04/20 Ralph Wilcox MD [address] [place] [address] Gastroenterology 11/25/20 Otilia Paulson OD [address] [place] [address] Consulting Provider Optometry 11/25/20 [place] [address] Obstetrics and Gynecology 11/25/20 documented as of this encounter
--- OUTSIDE RECORDS SUMMARY | 2024-11-21 15:11 | XMS_ITS | Encounter Summary ---
Author Organization [facility] Address [address] [place] [address] Care Team Providers Care Wanigan Clerk Name Role Phone Gayatri George APRN Primary Care Provider [phone] Neva Velásquez RN Unavailable Albaro Kellogg MD Unavailable A[facility], [facility] Unavailable Ralph Wilcox MD Unavailable [phone] Otilia Paulson OD Unavailable [phone] Roselia Abernathy MD Unavailable [phone] Gayatri George BORING MACHINE SET UP OPERATOR Primary Care Provider [phone] Gayatri George APRN Unavailable [phone] Reason for Visit * Reason Comments Medication Refill Encounter Details Date Type Department Care Team (Late st Contact Info) Description 03/18/[address] [place] [phone] Gayatri George, BORING MACHINE SET UP OPERATOR [address] [place] [address] Moderate persistent asthma, unspecified whether complicated Social History Tobacco Use Types Packs/Day Years [...] as of this encounter Visit Diagnoses Diagnosis Moderate persistent asthma, unspecified whether complicated documented in this encounter Care Teams Wanigan Clerk Relationship Specialty Start Date End Date Gayatri George APRN PCP - General Family Medicine 07/17/18 11/17/20 Gayatri George APRN PCP - General Family Medicine 11/25/20 01/20/21 Gayatri George APRN 30 [place] [address] PCP - United Medicare Attributed 03/02/19 06/01/19 Neva Velásquez, RN [address] [facility] 4 [place] [address] [facility] Community Flume Tender 11/29/18 08/15/21 Albaro Kellogg MD [address] [place] [address] Physician Endocrinology 08/01/19 11/17/20 Aging, [place] [facility] 02/04/20 Ralph Wilcox MD [address] [place] [address] Gastroenterology 11/25/20 Otilia Paulson OD [facility] [place] [address] Consulting Provider Optometry 11/25/20 [place] [address] Obstetrics and Gynecology 11/25/20 documented as of this encounter
--- OUTSIDE RECORDS SUMMARY | 2024-11-21 15:11 | XMS_ITS | Encounter Summary ---
Author Organization [facility] Address [address] [place] [address] Care Team Providers Care Driver Lifter Of Sanitation Truck Name Role Phone Gayatri George APRN Primary Care Provider [phone] Neva Velásquez RN Unavailable Albaro Kellogg MD Unavailable A[facility], [facility] Unavailable Ralph Wilcox MD Unavailable [phone] Otilia Paulson OD Unavailable [phone] Roselia Abernathy MD Unavailable Gayatri George APRN Primary Care Provider [phone] Gayatri George APRN Unavailable [phone] Encounter Details Date Type Department Care Team (Late st Contact Info) Description 12/10/2018 Scanned Document [facility]3] [address] [place] [id number] Ralph Wilcox MD [address] [place] [address], [place] [address] Social History Tobacco Use Types Packs/Day Years [...] Priority Date/Time Associated Diagnosis Comments PATHOLOGY REPORT 12/10/2018 12:00 AM EDT documented in this encounter Results * (REPORT) PATHOLOGY REPORT (12/10/2018 12:00 AM EDT) Ralph Wilcox MD PATHOLOGY/CYTOLOGY O RDERABLES documented in this encounter Visit Diagnoses Not on filedocumented in this encounter Care Teams Driver Lifter Of Sanitation Truck Relationship Specialty Start Date End Date Gayatri George, ANA PCP - General Family Medicine 07/17/18 11/17/20 Gayatri George, HYDRAULIC TECHNICIAN PCP - General Family Medicine 11/25/20 01/20/21 Gayatri George, HYDRAULIC TECHNICIAN 30 [place] [address] PCP - United Medicare Attributed 03/02/19 06/01/19 Neva Velásquez, RN [address] [facility] 4 [place] [address] ICP Community Run Boat Operator 11/29/18 08/15/21 Albaro Kellogg MD [address] [place] [address] Physician Endocrinology 08/01/19 11/17/20 Aging, [facility] 02/04/20 Ralph Wilcox MD [address] [place] [address] Gastroenterology 11/25/20 Otilia Paulson OD [facility][note 3]3 [place] [address] Consulting Provider Optometry 11/25/20 Roselia Abernathy MD [facility] [place] [address] Obstetrics and Gynecology 11/25/20 documented as of this encounter
--- OUTSIDE RECORDS SUMMARY | 2024-11-21 15:11 | XMS_ITS | Encounter Summary ---
Author Organization [facility] Address [address] [place] [address] Care Team Providers Care Internal Medicine Nurse Practitioner Name Role Phone Alison Aguirre APRN Primary Care Provider Soila Pineda Unavailable [phone] Gayatri George APRN Primary Care Provider [phone] Neva Velásquez RN Unavailable Albaro Kellogg MD Unavailable [facility] [place] [facility] Unavailable [phone] Ralph Wilcox MD Unavailable [phone] Otilia Paulson OD Unavailable [phone] Roselia Abernathy MD Unavailable [phone] Gayatri George APRN Primary Care Provider Gayatri George APRN Unavailable [phone] Reason for Visit * Reason Comments Medication Refill Encounter Details Date Type Department Care Team (Late st Contact Info) Description 05/31/2018 Refill [facility] [place] [facility] - Cardiology [address] [place] [address] Brenda Tony MD [address] [place] [address], [place] [address] Medication Refill Social History Tobacco Use Types Packs/Day Years Used Date Smoking Tobacco: Former Cigarettes Q uit: 2014 Smokeless Tobacco: Never Comments:quit smoking x 2yrs ago Alcohol Use Standard Drinks/Week Comments Yes 0 (1 standard drink = 0.6 oz pur e alcohol) socially Sex and Gender Information Value Date Recorded Sex Assigned at Not on file Gender Identity Not on file Sexual Orientation Not on file documented as of this encounter Miscellaneous Notes * Telephone Encounter - Aniyah Dumas RN - 06/01/2018 9:48 AM EDT Last visit 03/06/2018 Refill request was for Lasix 40 mg tablets daily. Lasix dose on last visit noted to be at 80 mg. All but one other provider noted it to be at 40 mg. Chart review does not reveal a note where lasix was increased or decreased. Attempted to reach patient to verify. Caller not taking calls. Refilled the 40 mg lasix daily. Will verify next visit. Next visit 09/11/2018 documented in this encounter Plan of Treatment Not on file documented as of this encounter Visit Diagnoses Diagnosis Essential hypertension- Primary Unspecified essential hypertension documented in this encounter Care Teams Internal Medicine Nurse Practitioner Relationship Specialty Start Date End Date Alison Aguirre APRN PCP - General Internal Medicine 10/24/17 07/16/18 Gayatri George APRN [address] [address] PCP - General Family Medicine 07/17/18 11/17/20 Gayatri George APRN [address] [address] PCP - General Family Medicine 11/25/20 01/20/21 Gayatri George APRN 30 [place] [address] PCP - United Medicare Attributed 03/02/19 06/01/19 Soila Pineda, DRAWBENCH OPERATOR [address] [place] [address] ICP PCMH+ Pediatrics Hospitalist 05/08/18 11/26/18 Neva Velásquez, RN [address] [place] [address] ICP Community Special Agent Group Insurance 11/29/18 08/15/21 Albaro Kellogg MD [address] [place] [address] Physician Endocrinology 08/01/19 11/17/20 Aging, [place] [facility] 02/04/20 Ralph Wilcox MD [address] [place] [address] Gastroenterology 11/25/20 Otilia Paulson OD [address] [place] [address] Consulting Provider Optometry 11/25/20 [place] [address] Obstetrics and Gynecology 11/25/20 documented as of this encounter
--- OUTSIDE RECORDS SUMMARY | 2024-11-21 15:11 | XMS_ITS | Encounter Summary ---
Author Organization [facility] Address [address] [place] [address] Care Team Providers Care Stick Puller Name Role Phone Gayatri George APRN Primary Care Provider [phone] Neva Velásquez RN Unavailable Albaro Kellogg MD Unavailable Aging, [place] [facility] Unavailable [phone] Ralph Wilcox MD Unavailable [phone] Otilia Paulson OD Unavailable [phone] Roselia Abernathy MD Unavailable [phone] Gayatri George APRN Primary Care Provider Encounter Details Date Type Department Care Team (Late st Contact Info) Description 08/14/2019 Scanned Document [facility] INTERNAL MED SCAN Gayatri George APRN [address] [place] [address] Social History Tobacco Use Types Packs/Day Years [...] on filedocumented in this encounter Care Teams Stick Puller Relationship Specialty Start Date End Date Gayatri George APRN PCP - General Family Medicine 07/17/18 11/17/20 Gayatri George APRN PCP - General Family Medicine 11/25/20 01/20/21 Neva Velásquez, JAMAR [address] [facility] 4 [place] [address] [facility] Community Clinical Informatics Director 11/29/18 08/15/21 Albaro Kellogg MD [address] [place] [address] Physician Endocrinology 08/01/19 11/17/20 [facility], [place] [facility] 02/04/20 Ralph Wilcox MD [address] [place] [address] Gastroenterology 11/25/20 Otilia Paulson OD [facility] [place] [address] Consulting Provider Optometry 11/25/20 [place] [address] Obstetrics and Gynecology 11/25/20 documented as of this encounter
--- OUTSIDE RECORDS SUMMARY | 2024-11-21 15:11 | XMS_ITS | Encounter Summary ---
Author Organization [facility] Address [address] [place] [address] Care Team Providers Care Bindery Machine Setter/Set Up Operator Name Role Phone Alison Aguirre APRN Primary Care Provider [phone] Gurjit Baum MD Primary Care Provider [phone] Alison Aguirre APRN Primary Care Provider [phone] Soila Pineda Unavailable [phone] Gayatri George APRN Primary Care Provider Neva Velásquez RN Unavailable Albaro Kellogg MD Unavailable A[facility], [facility] Unavailable [phone] Ralph Wilcox MD Unavailable [phone] Otilia Paulson OD Unavailable [phone] Roselia Abernathy MD Unavailable [phone] Gayatri George APRN Primary Care Provider [phone] Gayatri George APRN Unavailable [phone] Encounter Details Date Type Department Care Team (Late st Contact Info) Description 07/21/2017 Scanned Document [address] [address] Alison Aguirre APRN [address] [place] [place] [address] Social History Tobacco Use Types Packs/Day Years [...] on filedocumented in this encounter Care Teams Bindery Machine Setter/Set Up Operator Relationship Specialty Start Date End Date Alison Aguirre APRN PCP - General Internal Medicine 06/06/17 10/15/17 Gurjit Baum MD [address] [place] [address] PCP - General Internal Medicine 10/16/17 10/23/17 Alison Aguirre APRN PCP - General Internal Medicine 10/24/17 07/16/18 Gayatri George APRN [address] [place] [address] PCP - General Family Medicine 07/17/18 11/17/20 Gayatri George APRN [address] [place] [address] PCP - General Family Medicine 11/25/20 01/20/21 Gayatri George APRN [address] [place] [address] PCP - United Medicare Attributed 03/02/19 06/01/19 Soila Pineda, DRAMA CRITIC [address] [place] [address] ICP PCMH+ Experience Planning Strategist 05/08/18 11/26/18 Neva Velásquez, RN [address] [place] [address] [facility] Community Rug Measurer 11/29/18 08/15/21 Albaro Kellogg MD [address] [place] [address] Physician Endocrinology 08/01/19 11/17/20 Aging, [facility] 02/04/20 Ralph Wilcox MD [address] [place] [address] Gastroenterology 11/25/20 Otilia Paulson OD [address] [place] [address] Consulting Provider Optometry 11/25/20 [place] [address] Obstetrics and Gynecology 11/25/20 documented as of this encounter
--- OUTSIDE RECORDS SUMMARY | 2024-11-21 15:11 | XMS_ITS | Encounter Summary ---
Author Organization [facility] Address [address] [place] [address] Care Team Providers Care Motor Coach Tour Operator Name Role Phone Alison Aguirre APRN Primary Care Provider [phone] Gurjit Baum MD Primary Care Provider [phone] Alison Aguirre APRN Primary Care Provider [phone] Soila Pineda Unavailable [phone] Gayatri George APRN Primary Care Provider Neva Velásquez RN Unavailable Albaro Kellogg MD Unavailable Aging, [facility] Unavailable [phone] Ralph Wilcox MD Unavailable [phone] Otilia Paulson OD Unavailable [phone] Roselia Abernathy MD Unavailable [phone] Gayatri George APRN Primary Care Provider [phone] Gayatri George APRN Unavailable [phone] Encounter Details Date Type Department Care Team (Late st Contact Info) Description 08/16/2017 Scanned Document [address] [address] Alison Aguirre APRN [address] [place] [address] Social History Tobacco Use Types Packs/Day Years [...] on filedocumented in this encounter Care Teams Motor Coach Tour Operator Relationship Specialty Start Date End Date Alison Aguirre APRN PCP - General Internal Medicine 06/06/17 10/15/17 Gurjit Baum MD [address] [place] [address] PCP - General Internal Medicine 10/16/17 10/23/17 Alison Aguirre APRN PCP - General Internal Medicine 10/24/17 07/16/18 Gayatri George APRN [address] [place] [address] PCP - General Family Medicine 07/17/18 11/17/20 Gayatri George APRN [address] [place] [address] PCP - General Family Medicine 11/25/20 01/20/21 Gayatri George APRN [address] [place] [address] PCP - United Medicare Attributed 03/02/19 06/01/19 Soila Pineda, DIRECTOR OF STRATEGIC SALES [address] [place] [address] ICP PCMH+ Codifier 05/08/18 11/26/18 Neva Velásquez, RN [address] [place] [address] [facility] Community Almond Cutting Machine Tender 11/29/18 08/15/21 Albaro Kellogg MD [address] [place] [address] Physician Endocrinology 08/01/19 11/17/20 Aging, [facility] 02/04/20 Ralph Wilcox MD [address] [place] [address] Gastroenterology 11/25/20 Otilia Paulson OD [address] [place] [address] Consulting Provider Optometry 11/25/20 [place] [address] Obstetrics and Gynecology 11/25/20 documented as of this encounter
--- OUTSIDE RECORDS SUMMARY | 2024-11-21 15:11 | XMS_ITS | Encounter Summary ---
Author Organization [facility] Address [address] [place] [address] Care Team Providers Care Boiler Tube Reamer Name Role Phone Gayatri George APRN Primary Care Provider [phone] Neva Velásquez RN Unavailable Albaro Kellogg MD Unavailable A[facility], [facility] Unavailable Ralph Wilcox MD Unavailable Otilia Paulson OD Unavailable [phone] Roselia Abernathy MD Unavailable Gayatri George APRN Primary Care Provider [phone] Gayatri George APRN Unavailable [phone] Reason for Visit * Reason Comments Medication Refill Encounter Details Date Type Department Care Team (Late st Contact Info) Description 01/15/[address] [place] [phone] Gayatri George, ANA [address] [place] [address] Gastroesophageal reflux disease, esophagitis presence not specified; Moderate persistent asthma, unspecified whether complicated Social [...] as of this encounter Visit Diagnoses Diagnosis Gastroesophageal reflux disease, esophagitis presence not specified Moderate persistent asthma, unspecified whether complicated documented in this encounter Care Teams Boiler Tube Reamer Relationship Specialty Start Date End Date Gayatri George APRN PCP - General Family Medicine 07/17/18 11/17/20 Gayatri George APRN PCP - General Family Medicine 11/25/20 01/20/21 Gayatri George APRN 30 [place] [address] PCP - United Medicare Attributed 03/02/19 06/01/19 Neva Velásquez, RN [address] [address] [facility] Community Accounting Recruiter 11/29/18 08/15/21 Albaro Kellogg MD [address] [place] [address] Physician Endocrinology 08/01/19 11/17/20 Aging, [facility] 02/04/20 Ralph Wilcox MD [address] [place] [address] Gastroenterology 11/25/20 Otilia Paulson OD [facility] [place] [address] Consulting Provider Optometry 11/25/20 [place] [address] Obstetrics and Gynecology 11/25/20 documented as of this encounter
--- OUTSIDE RECORDS SUMMARY | 2024-11-21 15:11 | XMS_ITS | Encounter Summary ---
Author Organization [facility] Address [address] [place] [address] Care Team Providers Care Identification Clerk Name Role Phone Soila Pineda Unavailable [phone] Gayatri George APRN Primary Care Provider [phone] Neva Velásquez RN Unavailable Albaro Kellogg MD Unavailable Aging, [place] [facility] Unavailable [phone] Ralph Wilcox MD Unavailable [phone] Otilia Paulson OD Unavailable [phone] Roselia Abernathy MD Unavailable [phone] Gayatri George APRN Primary Care Provider [phone] Gayatri George APRN Unavailable [phone] Encounter Details Date Type Department Care Team (Late st Contact Info) Description 08/30/2018 Scanned Document [facility] [place] [address] [facility] [address] [place] [address] Delilah Domingo, DPM [address] [facility] [address] [place] [address] Social History Tobacco Use Types Packs/Day Years [...] on filedocumented in this encounter Care Teams Identification Clerk Relationship Specialty Start Date End Date Gayatri George, SYSTEM ENGINEER [address] [place] [address] PCP - General Family Medicine 07/17/18 11/17/20 Gayatri George, SYSTEM ENGINEER [address] [address] PCP - General Family Medicine 11/25/20 01/20/21 Gayatri George, SYSTEM ENGINEER [address] [place] [address] PCP - [place] Medicare Attributed 03/02/19 06/01/19 Soila Pineda, TEST CENTER ADMINISTRATOR [address] [place] [address] [facility] PCMH+ Tree And Shrub Technician 05/08/18 11/26/18 Neva Velásquez, JAMAR [address] [place] [address] [facility] Community Jewelry Setter 11/29/18 08/15/21 Albaro Kellogg MD [address] [place] [address] Physician Endocrinology 08/01/19 11/17/20 [facility] 02/04/20 Ralph Wilcox MD [address] [place] [address] Gastroenterology 11/25/20 Otilia Paulson OD [address] [place] [address] Consulting Provider Optometry 11/25/20 [place] [address] Obstetrics and Gynecology 11/25/20 documented as of this encounter
--- OUTSIDE RECORDS SUMMARY | 2024-11-21 15:11 | XMS_ITS | Encounter Summary ---
Author Organization [facility] Address [address] [place] [address] Care Team Providers Care Produce Laborer Name Role Phone Gurjit Baum MD Primary Care Provider [phone] Alison Aguirre APRN Primary Care Provider +[phone] Soila Pineda FLEET MAINTENANCE FOREMAN Unavailable +[phone] Gayatri eGorge APRN Primary Care Provider + [phone] Neva Velásquez RN Unavailable Albaro Kellogg MD Unavailable Aging, [place] For [facility] Unavailable +[phone] Ralph Wilcox MD Unavailable +[phone] Otilia Paulson OD Unavailable [phone] Roselia Abernathy MD Unavailable [phone] Gayatri George APRN Primary Care Provider + [phone] Gayatri George APRN Unavailable [phone] Encounter Details Date Type Department Care Team (Late st Contact Info) Description 10/19/2017 Scanned Document [facility] [address] [place] [address] Provider, Generic Social History Tobacco Use Types [...] on filedocumented in this encounter Care Teams Produce Laborer Relationship Specialty Start Date End Date Gurjit Baum MD [address] [place], [place] [id number] PCP - General Internal Medicine 10/16/17 10/23/17 Alison Aguirre APRN [address] [place] [address] PCP - General Internal Medicine 10/24/17 07/16/18 Gayatri George, INTRANET DEVELOPER [address] [address] PCP - General Family Medicine 07/17/18 11/17/20 Gayatri George, ANA [address] [address] PCP - General Family Medicine 11/25/20 01/20/21 Gayatri George, INTRANET DEVELOPER [address] [place] [address] PCP - United Medicare Attributed 03/02/19 06/01/19 Soila Pineda, FLEET MAINTENANCE FOREMAN [address] [place] [address] ICP PCMH+ Yard Supervisor 05/08/18 11/26/18 Neva Velásquez, RN [address] [place] [address] ICP Community Clip Baker 11/29/18 08/15/21 Albaro Kellogg MD [address] [place] [address] Physician Endocrinology 08/01/19 11/17/20 Aging, [facility] 02/04/20 Ralph Wilcox MD [address] [place] [address], [place] [address] Gastroenterology 11/25/20 Otilia Paulson OD [address] [place] [address] Consulting Provider Optometry 11/25/20 [place] [address] Obstetrics and Gynecology 11/25/20 documented as of this encounter
--- OUTSIDE RECORDS SUMMARY | 2024-11-21 15:11 | XMS_ITS | Encounter Summary ---
Author Organization [facility] Address [address] [place] [address] Care Team Providers Care Genetic Counsellor Name Role Phone Alison Aguirre APRN Primary Care Provider [phone] Soila Pineda Unavailable [phone] Gayatri George APRN Primary Care Provider [phone] Neva Velásquez RN Unavailable Albaro Kellogg MD Unavailable Aging, [place] For [facility] Unavailable +[phone] Ralph Wilcox MD Unavailable [phone] Otilia Paulson OD Unavailable [phone] Roselia Abernathy MD Unavailable +[phone] Gayatri George APRN Primary Care Provider + [phone] Gayatri George APRN Unavailable [phone] Encounter Details Date Type Department Care Team (Late st Contact Info) Description 02/01/2018 Scanned Document [address] [place] [address] Provider, Generic Social History Tobacco Use Types [...] on filedocumented in this encounter Care Teams Genetic Counsellor Relationship Specialty Start Date End Date Alison Aguirre APRN PCP - General Internal Medicine 10/24/17 07/16/18 Gayatri George, ANA [address] [place] [address] PCP - General Family Medicine 07/17/18 11/17/20 Gayatri George, FORGING DIE FINISHER [address] [address] PCP - General Family Medicine 11/25/20 01/20/21 Gayatri George, FORGING DIE FINISHER [address] [place] [address] PCP - United Medicare Attributed 03/02/19 06/01/19 Soila Pineda, PICKER AND PACKER [address] [place] [address] [facility] PCM+ Clock Smith 05/08/18 11/26/18 Neva Velásquez, JAMAR [address] [place] [address] [facility] Community Division Plant Engineer 11/29/18 08/15/21 Albaro Kellogg MD [address] [place] [address] Physician Endocrinology 08/01/19 11/17/20 Aging, [facility] 02/04/20 Ralph Wilcox MD [address] [address] Gastroenterology 11/25/20 Otilia Paulson OD [facility] [place] [address] Consulting Provider Optometry 11/25/20 [place] [address] Obstetrics and Gynecology 11/25/20 documented as of this encounter
--- OUTSIDE RECORDS SUMMARY | 2024-11-21 15:11 | XMS_ITS | Encounter Summary ---
Author Organization [facility] Address [address] [place] [address] Care Team Providers Care State Historical Society Director Name Role Phone Alison Aguirre APRN Primary Care Provider Soila Pineda Unavailable [phone] Gayatri George APRN Primary Care Provider Neva Velásquez RN Unavailable Albaro Kellogg MD Unavailable Aging, [place] For [facility] Unavailable [phone] Ralph Wilcox MD Unavailable [phone] Otilia Paulson OD Unavailable [phone] Roselia Abernathy MD Unavailable Gayatri George APRN Primary Care Provider Gayatri George APRN Unavailable [phone] Encounter Details Date Type Department Care Team (Late st Contact Info) Description 03/13/2018 Infusion [facility] Cancer [place] [facility]: Outpatient Infusion Center [address] [place] [address] Gurjit Baum MD [address] [address] Social History Tobacco Use Types Packs/Day Years [...] on filedocumented in this encounter Care Teams State Historical Society Director Relationship Specialty Start Date End Date Alison Aguirre APRN PCP - General Internal Medicine 10/24/17 07/16/18 Gayatri George APRN [address] [place] [address] PCP - General Family Medicine 07/17/18 11/17/20 Gayatri George, FIRMWARE SOFTWARE VERIFICATION ENGINEER [address] [address] PCP - General Family Medicine 11/25/20 01/20/21 Gayatri George, ANA [address] [place] [address] PCP - United Medicare Attributed 03/02/19 06/01/19 Soila Pineda MSW [address] [place] [address] [facility]+ Supervisor [employer] 05/08/18 11/26/18 Neva Velásquez, RN [address] [address] ICP Community Mice Raiser 11/29/18 08/15/21 Albaro Kellogg MD [address] [place] [address] Physician Endocrinology 08/01/19 11/17/20 [facility], [facility] [place] [facility] 02/04/20 Ralph Wilcox MD [address] [place] [address] Gastroenterology 11/25/20 Otilia Paulson OD [address] [place] [address] Consulting Provider Optometry 11/25/20 [place] [address] Obstetrics and Gynecology 11/25/20 documented as of this encounter
--- OUTSIDE RECORDS SUMMARY | 2024-11-21 15:11 | XMS_ITS | Encounter Summary ---
Author Organization [facility] Address [address] [place] [address] Care Team Providers Care Nib Finisher Name Role Phone Alison Aguirre APRN Primary Care Provider [phone] Gurjit Baum MD Primary Care Provider [phone] Alison Aguirre APRN Primary Care Provider [phone] Soila Pineda Unavailable [phone] Gayatri George APRN Primary Care Provider Neva Velásquez RN Unavailable Albaro Kellogg MD Unavailable Aging, [place] For [facility] Unavailable [phone] Ralph Wilcox MD Unavailable [phone] Otilia Paulson OD Unavailable [phone] Roselia Abernathy MD Unavailable [phone] Gayatri George APRN Primary Care Provider + [phone] Gayatri George APRN Unavailable [phone] Reason for Visit * Reason Comments Medication Refill Encounter Details Date Type Department Care Team (Late st Contact Info) Description 10/04/[address] [phone] Alison Aguirre APRN [address] [place] [address] Hypertension, unspecified type Social History Tobacco Use [...] type documented in this encounter Care Teams Nib Finisher Relationship Specialty Start Date End Date Alison Aguirre APRN PCP - General Internal Medicine 06/06/17 10/15/17 Gurjit Baum MD [address] [place] [address] PCP - General Internal Medicine 10/16/17 10/23/17 Alison Aguirre APRN PCP - General Internal Medicine 10/24/17 07/16/18 Gayatri George APRN [address] [address] PCP - General Family Medicine 07/17/18 11/17/20 Gayatri George APRN [address] [address] PCP - General Family Medicine 11/25/20 01/20/21 Gayatri George APRN 30 [place] [address] PCP - United Medicare Attributed 03/02/19 06/01/19 Soila Pineda, GENERAL MILLING SUPERINTENDENT [address] 4 [place] [address] ICP PCMH+ Handyperson 05/08/18 11/26/18 Neva Velásquez, RN [address] [place] [address] ICP Community Intel Recruiter 11/29/18 08/15/21 Albaro Kellogg MD [address] [place] [address] Physician Endocrinology 08/01/19 11/17/20 Aging, [facility] 02/04/20 Ralph Wilcox MD [address] [place] [address] Gastroenterology 11/25/20 Otilia Paulson OD [address] [place] [address] Consulting Provider Optometry 11/25/20 [place] [address] Obstetrics and Gynecology 11/25/20 documented as of this encounter
--- OUTSIDE RECORDS SUMMARY | 2024-11-21 15:11 | XMS_ITS | Encounter Summary ---
Author Organization [facility] Address [address] [place] [address] Care Team Providers Care Retail Asset Protection Specialist Name Role Phone Gayatri George APRN Primary Care Provider [phone] Neva Velásquez RN Unavailable Albaro Kellogg MD Unavailable Aging, [facility] Unavailable Ralph Wilcox MD Unavailable Otilia Paulson OD Unavailable [phone] Roselia Abernathy MD Unavailable [phone] Gayatri George BONSAI TENDER Primary Care Provider Gayatri George APRN Unavailable [phone] Reason for Visit * Reason Comments Medication Refill Encounter Details Date Type Department Care Team (Late st Contact Info) Description 03/23/[address] [place] [phone] Gayatri George, BONSAI TENDER [address] [place] [address] Depression, unspecified depression type (Primary Dx) Social History Tobacco Use Types Packs/Day Years [...] as of this encounter Visit Diagnoses Diagnosis Depression, unspecified depression type- Primary documented in this encounter Care Teams Retail Asset Protection Specialist Relationship Specialty Start Date End Date Gayatri George APRN PCP - General Family Medicine 07/17/18 11/17/20 Gayatri George APRN PCP - General Family Medicine 11/25/20 01/20/21 Gayatri George APRN 30 [place] [address] PCP - United Medicare Attributed 03/02/19 06/01/19 Neva Velásquez, RN [address] [address] [facility] Community Photogrammetric Technician 11/29/18 08/15/21 Albaro Kellogg MD [address] [place] [address] Physician Endocrinology 08/01/19 11/17/20 Aging, [place] For [facility] 02/04/20 Ralph Wilcox MD [address] [place] [address] Gastroenterology 11/25/20 Otilia Paulson OD [address] [place] [address] Consulting Provider Optometry 11/25/20 [place] [address] Obstetrics and Gynecology 11/25/20 documented as of this encounter
--- OUTSIDE RECORDS SUMMARY | 2024-11-21 15:11 | XMS_ITS | Encounter Summary ---
Author Organization [facility] Address [address] [place] [address] Care Team Providers Care Life Advisor Name Role Phone Alison Aguirre APRN Primary Care Provider Soila Pineda Unavailable [phone] Gayatri George APRN Primary Care Provider Neva Velásquez RN Unavailable Albaro Kellogg MD Unavailable Aging, [place] For [place] [facility] Unavailable [phone] Ralph Wilcox MD Unavailable [phone] Otilia Paulson OD Unavailable [phone] Roselia Abernathy MD Unavailable [phone] Gayatri George APRN Primary Care Provider Gayatri George APRN Unavailable [phone] Encounter Details Date Type Department Care Team (Late st Contact Info) Description 02/27/2018 Scanned Document [facility] Podiatric Surgery [place] [address] [facility] [address] [place] [address] Jorge Quiñones, ROSHAN 201 [facility] [address] [place] [address] Social History Tobacco Use Types Packs/Day Years [...] on filedocumented in this encounter Care Teams Life Advisor Relationship Specialty Start Date End Date Alison Aguirre APRN PCP - General Internal Medicine 10/24/17 07/16/18 Gayatri George, ANA [address] [place] [address] PCP - General Family Medicine 07/17/18 11/17/20 Gayatri George, SENIOR NET APPLICATION DEVELOPER [address] [employer] [address] [id number] PCP - General Family Medicine 11/25/20 01/20/21 Gayatri George, SENIOR NET APPLICATION DEVELOPER [address] [place] [address] PCP - United Medicare Attributed 03/02/19 06/01/19 Soila Pineda, SORTER PACKER [address] [employer] [address] [place] [address] [facility]+ Payloader Operator 05/08/18 11/26/18 Neva Velásquez, RN [address] [place] [address] [facility] Community Welder Tool And Die 11/29/18 08/15/21 Albaro Kellogg MD [address] [place] [address] Physician Endocrinology 08/01/19 11/17/20 [facility], [facility] 02/04/20 Ralph Wilcox MD [address] [place] [address] Gastroenterology 11/25/20 Otilia Paulson OD [address] [place] [address] Consulting Provider Optometry 11/25/20 [place] [address] Obstetrics and Gynecology 11/25/20 documented as of this encounter
--- OUTSIDE RECORDS SUMMARY | 2024-11-21 15:11 | XMS_ITS | Encounter Summary ---
Author Organization [facility] Address [address] [place] [address] Care Team Providers Care Order Checker Packer Processer Name Role Phone Gurjit Baum MD Primary Care Provider [phone] Alison Aguirre APRN Primary Care Provider [phone] Soila Pineda PLATE FINISHER Unavailable [phone] Gayatri George APRN Primary Care Provider + [phone] Neva Velásquez RN Unavailable Albaro Kellogg MD Unavailable Aging, [place] For [facility] Unavailable [phone] Ralph Wilcox MD Unavailable [phone] Otilia Paulson OD Unavailable [phone] Roselia Abernathy MD Unavailable [phone] Gayatri George APRN Primary Care Provider + [phone] Gayatri George APRN Unavailable [phone] Encounter Details Date Type Department Care Team (Late st Contact Info) Description 10/16/2017 Scanned Document [address] [address] Gurjit Baum MD [address] [place] [address] Social History Tobacco Use Types Packs/Day Years [...] on filedocumented in this encounter Care Teams Order Checker Packer Processer Relationship Specialty Start Date End Date Gurjit Baum MD [address] [place], [place] [address] PCP - General Internal Medicine 10/16/17 10/23/17 Alison Aguirre APRN [address] [place] [address] PCP - General Internal Medicine 10/24/17 07/16/18 Gayatri George, ANA [address] [address] PCP - General Family Medicine 07/17/18 11/17/20 Gayatri George, COUNCIL MEMBER [address] [place] [address] PCP - General Family Medicine 11/25/20 01/20/21 Gayatri George, ANA 30 [place] [address] PCP - United Medicare Attributed 03/02/19 06/01/19 Soila Pineda, PLATE FINISHER [address] [facility] 4 [place] [address] [facility] PCMH+ Soiled Linen Distributor 05/08/18 11/26/18 Neva Velásquez, RN [address] [place] [address] [facility] Community Natural Resources Faculty Member 11/29/18 08/15/21 Albaro Kellogg MD [address] [place] [address] Physician Endocrinology 08/01/19 11/17/20 Aging, [facility] 02/04/20 Ralph Wilcox MD [address] [place] [address] Gastroenterology 11/25/20 Otilia Paulson, HERBIE [address] [place] [address] Consulting Provider Optometry 11/25/20 [place] [address] Obstetrics and Gynecology 11/25/20 documented as of this encounter
--- OUTSIDE RECORDS SUMMARY | 2024-11-21 15:12 | XMS_ITS | Encounter Summary ---
Author Organization [facility] Address [address] [place] [address] Care Team Providers Care Pet Food Deboner Name Role Phone Alison Aguirre APRN Primary Care Provider Soila Pineda DIRECTOR OF CHANNEL MARKETING Unavailable [phone] Gayatri George APRN Primary Care Provider Neva Velásquez RN Unavailable Albaro Kellogg MD Unavailable Aging, [place] For [facility] Unavailable [phone] Ralph Wilcox MD Unavailable [phone] Otilia Paulson OD Unavailable [phone] Roselia Abernathy MD Unavailable Gayatri George APRN Primary Care Provider Gayatri George APRN Unavailable [phone] Encounter Details Date Type Department Care Team (Late st Contact Info) Description 06/13/2018 Scanned Document [address] [phone] Alison Aguirre APRN [address] [place] [address] Social History Tobacco Use Types Packs/Day Years [...] on filedocumented in this encounter Care Teams Pet Food Deboner Relationship Specialty Start Date End Date Alison Aguirre APRN PCP - General Internal Medicine 10/24/17 07/16/18 Gayatri George, ANA [address] [place] [address] PCP - General Family Medicine 07/17/18 11/17/20 Gayatri George, BROTHEL KEEPER [address] [id number] PCP - General Family Medicine 11/25/20 01/20/21 Gayatri George, BROTHEL KEEPER 30 [place] [address] PCP - [place] Medicare Attributed 03/02/19 06/01/19 Soila Pineda MSW [address] [place] [address] [facility]+ Drift Miner 05/08/18 11/26/18 Neva Velásquez, RN [address] [address] [facility] Community Settlement Worker 11/29/18 08/15/21 Albaro Kellogg MD [address] [place] [address] Physician Endocrinology 08/01/19 11/17/20 [facility], [facility] 02/04/20 Ralph Wilcox MD [address] [place] [address] Gastroenterology 11/25/20 Otilia Paulson OD [address] [place] [address] Consulting Provider Optometry 11/25/20 [place] [address] Obstetrics and Gynecology 11/25/20 documented as of this encounter
--- OUTSIDE RECORDS SUMMARY | 2024-11-21 15:12 | XMS_ITS | Encounter Summary ---
Author Organization [facility] Address [address] [place] [address] Care Team Providers Care School Inspector Name Role Phone Alison Aguirre APRN Primary Care Provider [phone] Gurjit Baum MD Primary Care Provider [phone] Alison Aguirre APRN Primary Care Provider [phone] Soila Pineda Unavailable [phone] Gayatri George APRN Primary Care Provider Neva Velásquez RN Unavailable Albaro Kellogg MD Unavailable Aging, [facility] Unavailable [phone] Ralph Wilcox MD Unavailable [phone] Otilia Paulson OD Unavailable [phone] Roselia Abernathy MD Unavailable [phone] Gayatri George APRN Primary Care Provider [phone] Gayatri George APRN Unavailable [phone] Encounter Details Date Type Department Care Team (Late st Contact Info) Description 09/18/2017 Scanned Document [address] [place] [address] Provider, Generic Social History Tobacco Use Types [...] on filedocumented in this encounter Care Teams School Inspector Relationship Specialty Start Date End Date Alison Aguirre APRN PCP - General Internal Medicine 06/06/17 10/15/17 Gurjit Baum MD [address] [place] [address] PCP - General Internal Medicine 10/16/17 10/23/17 Alison Aguirre APRN PCP - General Internal Medicine 10/24/17 07/16/18 Gayatri George APRN [address] [place] [address] PCP - General Family Medicine 07/17/18 11/17/20 Gayatri George APRN [address] 4 [place] [address] PCP - General Family Medicine 11/25/20 01/20/21 Gayatri George APRN 30 [place] [address] PCP - United Medicare Attributed 03/02/19 06/01/19 Soila Pineda, DIRT CONTRACTOR [address] [place] [address] ICP PCMH+ Grain Farmworker 05/08/18 11/26/18 Neva Velásquez, RN [address] [place] [address] ICP Community Director Of Sales 11/29/18 08/15/21 Albaro Kellogg MD [address] [place] [address] Physician Endocrinology 08/01/19 11/17/20 Aging, [facility] 02/04/20 Ralph Wilcox MD [address] [place] [address] Gastroenterology 11/25/20 Otilia Paulson OD [address] [place] [address] Consulting Provider Optometry 11/25/20 [place] [address] Obstetrics and Gynecology 11/25/20 documented as of this encounter
--- OUTSIDE RECORDS SUMMARY | 2024-11-21 15:13 | XMS_ITS | Clinical Summary ---
Author Organization [facility] Address [address] [facility] [address] [place] [address] Phone Care Team Providers Care Windows 7 Deployment Lead Name Role Phone Tommie Suarez MD Primary Care Provider Allergies Active Allergy Reactions Criticality Noted Date Comments Baclofen Other (see comments) 02/18/2019 Aphasia Sulfa Antibiotics Other (see comments),Swelling Medium 06/12/2017 Medications albuterol HFA (PROVENTIL HFA;VENTOLIN HFA) 108 (90 Base) MCG/ACT inhaler Active aspirin (ST ISABELLA) 81 MG EC tablet Take 1 tablet by mouth 1 (one) time each day Active atorvastatin (LIPITOR) 40 MG tablet Take 1 tablet by mouth 1 (one) time each day Active buPROPion XL (WELLBUTRIN XL) 150 MG 24 hr tablet Take 1 tablet by mouth 1 (one) time each day Active carvedilol (COREG) 6.25 MG tablet Take 1 tablet by mouth 2 (two) times a day Active desvenlafaxine (PRISTIQ) 100 MG 24 hr tablet Take 1 tablet by mouth 1 (one) time each day Active fluticasone-salm eterol (ADVAIR DISKUS) 250-50 MCG/DOSE diskus inhaler Active insulin aspart (NovoLOG) 100 UNIT/ML injection Active insulin glargine (LANTUS) 100 UNIT/ML injection Active montelukast (SINGULAIR) 10 MG tablet Take 1 tablet by mouth 1 (one) time each day Active venlafaxine 225 MG 24 hr tablet Take 1 tablet by mouth 1 (one) time each day Active cyclobenzaprine (FLEXERIL) 10 MG tablet Take 1 tablet by mouth if needed 1 Active ergocalciferol (VITAMIN D2) 1.25 MG (45747 UT) capsule @@TAKE 1 CAPSULE BY MOUTH ONCE A MONTH 1 capsule 1 Active famotidine (PEPCID) 40 MG tablet Take 1 tablet by mouth 1 (one) time each day 1 Active calcitriol (ROCALTROL) 0.25 MCG capsule 1 Active docusate sodium (COLACE) 100 MG capsule Take 100 mg by mouth 1 (one) time each day Active lurasidone (LATUDA) 20 MG tablet Take 20 mg by mouth 1 (one) time each day with breakfast Active traZODone (DESYREL) 100 MG tablet Take 250 mg by mouth every night 1 Active Trulicity 4.5 MG/0.5ML solution pen-injector 1 Active Diclofenac Sodium 1 % gel 1 Active Vraylar 1.5 MG capsule 1 Active ammonium lactate (AMLACTIN) 12 % cream 1 Active acetaminophen (TYLENOL) 325 MG tablet 1 Active FREESTYLE LITE test strip 1 Active lactulose (CHRONULAC) 10 GM/15ML solution 1 Active pantoprazole (PROTONIX) 20 MG EC tablet Take 1 tablet by mouth 1 (one) time each day 1 Active clopidogrel (PLAVIX) 75 MG tablet Take 75 mg by mouth 1 (one) time each day 3 Active gabapentin (NEURONTIN) 100 MG capsule Take 1 capsule by mouth in the morning and 1 capsule in the evening. 3 Active isosorbide mononitrate (IMDUR) 30 MG 24 hr tablet Take 1 tablet by mouth 1 (one) time each day 3 Active hydrALAZINE 50 MG tablet Take 1 tablet by mouth in the morning and 1 tablet in the evening and 1 tablet before bedtime. 3 Active bumetanide (BUMEX) 2 MG tablet Take 1 tablet (2 mg total) by mouth 1 (one) time each day 60 tablet 3 4 Active potassium chloride (MICRO-K) 10 MEQ CR capsule 4 Active Hospital, Clinic, or Other Facility Administered Medication Ordered Dose Route Frequency Start Date End Date Status Epoetin Sally-epbx solution 10,000 UnitsIndications:Anemi a in chronic kidney disease 85260 Units IJ Weekly 11/12/2020 Active ferumoxytol (FERAHEME) injection 510 mgIndications:Other iron deficiency anemia 510 mg IV Once in dialysis 07/05/2021 Active Epoetin Sally-epbx solution 40,000 UnitsIndications:Anemi a in chronic kidney disease,Chronic kidney disease stage 4 (HCC),Hypertensive renal disease 11704 Units IJ Every 7 days 07/15/2021 Active epoetin sally (EPOGEN,PROCRIT) injection 10,000 UnitsIndications:Anemi a due to Renal Failure 85601 Units IV Every 14 days 09/20/2022 Active Active Problems Problem Noted Date Diagnosed Date Stage 3b chronic kidney disease 06/26/2023 Other iron deficiency anemia 03/13/2023 Renal osteodystrophy 02/01/2022 Secondary hyperparathyroidism of renal origin Hypertension 08/11/2021 Chronic kidney disease stage 4 12/22/2020 Hypertensive renal disease 12/22/2020 Chronic kidney disease stage 3 due to type 2 diabetes mellitus 09/10/2018 Overview (02/24/2021): Last Assessment & Plan: Followed by Dr. Baum. Anemia in chronic kidney disease 07/18/2017 Overview (12/22/2020): Last Assessment & Plan: Followed by Dr. Baum, he recently placed an order for iron infusions. Patient reports she has not heard back about this. I had one of our nurses reach out to the infusion center, they scheduled her an appointment for Monday at 1 PM. Anemia 06/26/2017 Overview (12/22/2020): Last Assessment & Plan: Followed by Dr. Baum, our nursing staff set up an iron infusion appt for her. Hgb currently stable. Essential hypertension 06/13/2017 Overview (12/22/2020): Followed by Dr. Tony. Last Assessment & Plan: Followed by Dr. Tony, blood pressure borderline high today. Repeat at next visit in 2 weeks. Resolved Problems Problem Noted Date Diagnosed Date Resolved Date Asthma without status asthmaticus 11/01/2021 11/01/2021 Chronic pain syndrome 11/01/20212021 Disorder due to type 2 diabetes mellitus 11/01/2021 11/01/2021 Heart failure 11/01/2021 11/01/2021 Obstructive sleep apnea syndrome 11/01/2021 11/01/2021 Recurrent major depression 11/01/2021 0 11/01/2021 Muscle rigidity 01/07/2019 12/22/2020 Speech disturbance 01/07/2019 Depressive disorder 12/24/2018 12/23/19 Overview (12/22/2020): Last Assessment & Plan: Mood has been stable. Continue with Wellbutrin 150 mg daily and duloxetine 60 mg daily. Follow-up in 4 months. Weakness 12/24/2018 12/22/2020 Overview (12/22/2020): Last Assessment & Plan: I think that she would benefit from home PT and nursing services. Referral to home care placed. Follow up in 2 months. Polyneuropathy due to type 2 diabetes mellitus 11/23/2018 12/22/2020 Overview (12/22/2020): Last Assessment & Plan: Some improvement since starting Cymbalta, continue with 60 mg daily. Mood also seems okay on this. Follow-up in 4 months. Gastroesophageal reflux disease 09/13/2018 12/22/2020 Overview (12/22/2020): Last Assessment & Plan: Continue with pantoprazole 40 mg daily and follow-up with GI. Arthritis 08/15/2018 12/22/2020 Overview (12/22/2020): Last Assessment & Plan: She is requesting a refill on her oxycodone, lower back has been bothersome. She uses this very sparingly. Last filled in November. Rx sent. Pure hypercholesterolemia 08/15/2018 Overview (12/22/2020): Last Assessment & Plan: Continue with atorvastatin 40 mg daily, check labs. Shortness of breath 08/15/2018 11/01/19 22 Overview (02/24/2021): Last Assessment & Plan: Shortness of breath specifically after eating. Order placed for a barium swallow to screen for a hiatal hernia. Moderate persistent asthma 07/19/2018 0 12/22/2020 Overview (12/22/2020): Last Assessment & Plan: Some improvement with the addition of Singular. She has been on Advair in the past but stopped taking this. She will resume the Advair. F/u in 1 month, I will consider a PFT at that time. Shoulder pain 07/19/2018 12/22/2020 Overview (12/22/2020): Last Assessment & Plan: Patient states that she has an order for PT. X-ray order placed due to the severity of her pain and decreased ROM after falling. Percocet refilled for her to use as needed for severe pain, she is using the sparingly. Triggering of digit 07/19/2018 12/23/19 21 Overview (12/22/2020): Last Assessment & Plan: Referred to the hand specialist for evaluation. Osteomyelitis 12/26/2017 12/22/2020 Uncontrolled type 2 diabetes mellitus 11/10/2017 12/22/2020 Overview (07/02/2024): Followed by Dr. Kellogg Last Assessment & Plan: Followed by endocrinology, she has an upcoming appointment on 08/02. Replacing diagnoses that were inactivated after the 07/02/24 Regulatory Import Ulcer of toe 11/10/2017 12/22/2020 Incontinence of feces 10/25/20172020 Finding of abnormal level of heavy metal in blood 06/26/2017 12/22/2020 Vitamin D deficiency 06/26/2017 021 Family History Relation Status Comments Father Mother Social History Tobacco Use Types Packs/Day Years Used Date Smoking Tobacco: Former Smokeless Tobacco: Former Tobacco Cessation:Counseling Given: Not Answered Alcohol Use Standard Drinks/Week Comments No 0 (1 standard drink = 0.6 oz pur e alcohol) Comments Unknown Sex and Gender Information Value Date Recorded Sex Assigned at Not on file Legal Sex Female 4:56 PM EST Gender Identity Not on file Sexual Orientation Not on file Last Filed Vital Signs Vital Sign Reading Time Taken Comments Blood Pressure 158/60 07/18/2023 3:06 PM EDT Pulse 89 06/26/2023 3:09 PM EDT Temperature - - Respiratory Rate 20 05/30/2023 2:37 PM EDT Oxygen Saturation 99% 06/26/2023 3:09 PM EDT Inhaled Oxygen Concentration - - Weight 101 kg (222 lb 6.4 oz) 06/26/2023 3:09 PM EDT Height 167.6 cm (5' 6 ) 06/01/2022 1:55 PM EDT Body Mass Index 35.9 06/01/2022 1:55 PM EDT Plan of Treatment Health Maintenance Due Date Last Done Comments Breast Cancer Screening 1960 Pneumococcal Vaccine: Pediat rics (0 to 5 Years) and At-Risk Patients (6 to 64 Years) (1 of 2 - PCV) 1966 Colorectal Cancer Screening: Annual FOBT 2009 Colorectal Cancer Screening: Colonoscopy 2009 Colorectal Cancer Screening: Sigmoidoscopy 2009 Diabetes: Hemoglobin A1C 10/30/2020 Diabetes: Ophthalmology Exam 10/30/2020 Diabetes: Pedal Pulse Checked 10/30/2020 Diabetes: Sensory Foot Exam 10/30/2020 Diabetes: Visual Foot Exam 10/30/2020 Influenza Vaccine (#1) 2024 Hepatitis B Vaccine Aged Out No longe r eligible based on patient's age to complete this topic Insurance [facility] ([id number]) [facility] ([id number]) Care Teams Windows 7 Deployment Lead Relationship Specialty Start Date End Date Tommie Suarez MD [address] [phone] PCP - General 10/12/20
--- OUTSIDE RECORDS SUMMARY | 2024-11-21 15:13 | XMS_ITS | Clinical Summary ---
Author Organization [facility] [[email or web address]] Address [address] [place] [address] Care Team Providers Care Tennis Racket Repairer Name Role Phone Tommie Suarez MD Primary Care Provider [phone] Surgical History Surgery Date Site/Laterality Comments BYPASS GRAFT PROCEDURE: NM AMPUTATION TOE METATARSOPHALANGEAL JOINT; COMMENT: x3 OTHER SURGICAL HISTORY PROCEDURE: ---- OTHER ----; COMMENT: Reduction mammoplasty OTHER SURGICAL HISTORY PROCEDURE: ---- OTHER ----; COMMENT: Abdominoplasty Medical History Medical History Date Comments Asthma DX:Asthma Diastolic CHF (CMS/HCC) DX:Diast olic CHF ([facility]) HTN (hypertension) DX:HTN (hyper tension) HLD (hyperlipidemia) DX:HLD (hyp erlipidemia) Diabetes mellitus (CMS/HCC) DX:D iabetes mellitus (HCC) Diabetic neuropathy (CMS/HCC) DX :Diabetic neuropathy (HCC) CKD (chronic kidney disease) , stage IV (CMS/HCC) DX:CKD (chronic kidney disea se), stage IV ([facility]); COMMENT: baseline creatinine 2.4 History of CVA (cerebrovascu lar accident) DX:History of CVA (cerebrova scular accident) GERD (gastroesophageal reflux disease) DX:GERD (gastroesophageal reflux disease) Constipation DX:Constipation Depression with anxiety DX:Depre ssion with anxiety Insomnia DX:Insomnia Spinal stenosis DX:Spinal stenos is Osteoarthritis DX:Osteoarthriti s; COMMENT: affecting multiple joints Gait instability DX:Gait instabi lity Obesity DX:Obesity Abscess of neck 03/07/2022 DX:Abscess of ne ck QT prolongation DX:QT prolongati on Anemia DX:Anemia T2DM (type 2 diabetes mellit us) (CMS/HCC) DX:T2DM (type 2 diabetes rena litus) ([facility]) Acute kidney injury superimp osed on chronic kidney disease (CMS/HCC) DX:Acute kidney injur y superimposed on chronic kidney disease (HCC) JOHN (obstructive sleep apnea) DX :JOHN (obstructive sleep apnea) DVT prophylaxis DX:DVT prophylax is Severe anemia DX:Severe anemia COPD (chronic obstructive pu lmonary disease) ([facility]) DX:COPD (chronic obstructive pulmonary disease) ([facility]); COMMENT: not oxygen dependent Family History Medical History Relation Name Comments Diabetes Mother Heart failure Mother of [place] in her 70s Hypertension Mother Relation Name Status Comments Mother Social History Tobacco Use Types Packs/Day Years Used Date Smoking Tobacco: Former Smokeless Tobacco: Never Alcohol Use Standard Drinks/Week Comments Yes 0 (1 standard drink = 0.6 oz pur e alcohol) Comments Unknown Sex and Gender Information Value Date Recorded Sex Assigned at Not on file Legal Sex Female 8:47 PM EST Gender Identity Not on file Sexual Orientation Not on file Obstetrics History Last Filed Vital Signs Vital Sign Reading Time Taken Comments Blood Pressure 124/70 01/11/2023 11:24 AM EDT Sitting L Arm Pulse 80 01/11/2023 11:24 AM EDT Temperature - - Respiratory Rate - - Oxygen Saturation - - Inhaled Oxygen Concentration - - Weight 93.5 kg (206 lb 3.2 oz) 01/11/2023 11:24 AM EDT Height 167.6 cm (5' 6 ) 01/11/2023 11:2 4 AM EDT Body Mass Index 33.28 01/11/2023 11:24 AM EDT Plan of Treatment Health Maintenance Due Date Last Done Comments Breast Cancer Screening 1960 Diabetes: Annual GFR (Glomer ular Filtration Rate) 1960 Diabetes: Annual Foot Exam 1970 Diabetes: Annual Retina Eye Exam 1970 DTaP,Tdap,and Td Vaccines (1 - Tdap) 1979 Pneumococcal Vaccine: 50+ Ye ars (1 of 2 - PCV) 1979 Pneumococcal Vaccine: Pediat rics (0 to 5 Years) and At-Risk Patients (6 to 64 Years) (1 of 2 - PCV) 1979 Cervical Cancer Screening: P ap Smear 1981 Zoster Vaccines (1 of 2) 2010 RSV Immunization Patients 60 + Years Old (1 - Risk 60-74 years 1-dose series) 2020 Cholesterol Screening (Lipid Panel) 09/03/2022 Colorectal Cancer Screening: Colonoscopy 09/03/2022 Depression Screening 09/03/2022 HIV Screening 09/03/2022 Hepatitis C Screening 09/03/2022 Social Influencers of Health Screening 09/03/2022 Hypertension/CHF/CAD Annual BMP Blood Test 09/11/2022 Diabetes: Annual Urine Albumin-Creatinine Ratio (uACR) 09/14/2022 Diabetes: Blood Sugar Contro l Test (HGBA1C) 09/14/2022 COVID-19 Vaccine (2023-2 5 season) 2024 Influenza Vaccine (#1) 2024 HIB Vaccines Aged Out No longer eligi ble based on patient's age to complete this topic HPV Vaccines Aged Out No longer eligi ble based on patient's age to complete this topic Hepatitis A Vaccines Aged Out No long er eligible based on patient's age to complete this topic Hepatitis B Vaccines Aged Out No long er eligible based on patient's age to complete this topic IPV Vaccines Aged Out No longer eligi ble based on patient's age to complete this topic MMR Vaccines Aged Out No longer eligi ble based on patient's age to complete this topic Meningococcal ACWY Vaccine Aged Out N o longer eligible based on patient's age to complete this topic Meningococcal B Vacine Aged Out No lo nger eligible based on patient's age to complete this topic RSV Immunization Patients Un bertram 20 months Aged Out No longer eligible b ased on patient's age to complete this topic Varicella Vaccines Aged Out No longer eligible based on patient's age to complete this topic Advance Directives Documents on File Type Date Recorded Patient Wedding Day Coordinator Expl anation Health Care Decision (hx) 01/16/2022 AD OLIVIER DIRECTIVE Health Care Decision (hx) 01/15/2022 AD OLIVIER DIRECTIVE Health Care Decision (hx) 07/26/2021 AD OLIVIER DIRECTIVE Health Care Decision (hx) 07/26/2021 AD OLIVIER DIRECTIVE Health Care Decision (hx) 07/26/2021 AD OLIVIER DIRECTIVE Health Care Decision (hx) 07/26/2021 AD OLIVIER DIRECTIVE Health Care Decision (hx) 07/26/2021 AD OLIVIER DIRECTIVE Health Care Decision (hx) 07/26/2021 AD OLIVIER DIRECTIVE Health Care Decision (hx) 07/26/2021 AD OLIVIER DIRECTIVE Health Care Decision (hx) 07/26/2021 AD OLIVIER DIRECTIVE Health Care Decision (hx) 07/24/2021 AD OLIVIER DIRECTIVE Health Care Decision (hx) 07/24/2021 AD OLIVIER DIRECTIVE Health Care Decision (hx) 07/24/2021 AD OLIVIER DIRECTIVE Health Care Decision (hx) 07/24/2021 AD OLIVIER DIRECTIVE Care Teams Tennis Racket Repairer Relationship Specialty Start Date End Date Tommie Suarez MD [address] [place] [address] [place] PCP - General 11/09/20
--- OUTSIDE RECORDS SUMMARY | 2024-11-21 15:13 | XMS_ITS | Encounter Summary ---
Author Organization [facility] Address [address] [facility] [address] [place] [address] Phone Care Team Providers Care Business Planning Analyst Name Role Phone Tommie Suarez MD Primary Care Provider [phone] Encounter Details Date Type Department Care Team (Late st Contact Info) Description 01/27/2021 Orders Only [facility] [address] [facility] [address] [place] [phone] Leann Molina RN Social History Tobacco Use Types Packs/Day Years Used Date Smoking Tobacco: Every Day Smokeless Tobacco: Current Alcohol Use Standard Drinks/Week Comments No 0 [...] on filedocumented in this encounter Care Teams Business Planning Analyst Relationship Specialty Start Date End Date Tommie Suarez MD 10 [facility] [address] [place] [id number] PCP - General 10/12/20 documented as of this encounter
--- OUTSIDE RECORDS SUMMARY | 2024-11-21 15:13 | XMS_ITS | Data Portability ---
Author Organization [employer] User [place] Address [address] [place] [address] Care Team Providers Care Seed Cleaning Manager Name Role Phone HIM CCA OTHER Assessment Encounter Date Assessment Date Assessment LastModified by Organization Details LastModified Time 01/12/2023 01/12/2023 62 YOF being seen for nausea, fevers, fatigue, diarrhea, requesting covid testing. COVID negative. -Abdominal exam without concerning findings. Discussed increased PO intake, red flag symptoms that should prompt ED visit. [email or web address] Not available 01/12/2023 15:58:18 03/02/2023 03/02/2023 I have reviewed and agree with the Assessment and Plan as documented by the Oracle Adf Developer. I provided real-time medical direction via phone for this encounter, and was available for additional phone based assistance as needed. Patient with hx of CHF seen for LE L>R swelling and weight gain. AVSS and reasonably well appearing per medic. Denies worsening BEGUM or orthopnea. Denies fevers or chills. No calf pain / TTP to suggest DVT. Pt reports sxs c/f prior episodes of worsening volume overload for which her home diuretics are typically increased (doubled). Advised doubling home bumex x3 days with daily weights and close symptom monitoring and close care team follow up. Red flags for callback vs. ED presentation reviewed and pt voices understanding. [email or web address] Not available 03/10/2023 08:51:00 01/16/2024 01/16/2024 I provided real -time medical direction via phone for this encounter and was available for additional phone-based assistance as needed. I have reviewed and agree with the Assessment and Plan as documented by the Oracle Adf Developer. Patient given the opportunity to ask questions. Our service contacted for an assessment of: upper respiratory tract symptoms and fever As per above, patient With approximately 24 hours of acute onset of congestion primarily of the lungs and a small amount of nasal congestion. Nonproductive cough, fever and chills. Took Tylenol this morning for low-grade temperature. Has been able to eat and drink normally. Denies chest pain or shortness of breath. Per orthopedics pediatric physician on the scene, Patient is leaning forward but not tripoding. She states that she normally breathes this way. She is not in distress but does appear uncomfortable. There is no increased work of breathing. Exam is not a warming to orthopedics pediatric physician on the scene. Her vital signs are stable and her O2 sat on room air is 93%. Her COVID and flu are negative. There are other flu cases in the apartment complex that she lives in. Fever currently is 101. again no evidence of toxicity. Impression: Febrile illness Plan: suspicion for flu given the fact that it is present in the complex in which she lives in. Will send flu, COVID, RSV for PCR testing. Likely given the duration is a viral illness. We will follow-up on these results. Otherwise red flags discussed and I would have her call this service back or seek a higher level of care depending on her time course over the next 24 hours. Additionally we are going to have her take Tylenol every 4 to 6 hours around the clock at a low dose to keep her fever down. Patient agreement with the plan and all questions answered. We discussed the diagnostic uncertainty of home visits and the risk associated with this. In this case, the patient and I felt this to be an acceptable and reasonable amount of risk given the benefit of avoiding an ED visit. We discussed the need to seek care urgently/emergen tly in the setting of any new or worsening serious symptoms Not available 01/16/2024 17:53:57 06/09/2024 06/09/2024 I provided real -time medical direction via phone for this encounter and was available for additional phone-based assistance as needed. I have reviewed and agree with the Assessment and Plan as documented by the Oracle Adf Developer. Patient given the opportunity to ask questions. As per above, patient with hypokalemia unresponsive to oral supplements. Per orthopedics pediatric physician on the scene, VSS, no symptoms. K is 2.6. Cr is 1.8. Impression: Hypokalemia - repeated critical values in the setting of CKD without ability to recheck and frequently monitor in this setting. Additionally unable to evaluate for low mag which could be contributing. Discussed with patient and she agrees given the urgency of the situation. Plan: Transported to [place] ED. Expect call made. Not available 06/09/2024 10:12:54 Plan of Treatment Reminders Order Date Submit Date Provider Last Modified By Organization Details Last Modified Time Details Appointments None recorded . Lab BMP, serum or plasma 2023 024 [facility], [address] [place] [address], [id number], 4 19:48:59 BMP, serum or plasma 2023 024 [facility], [address] [place] [address], [id number], 4 08:14:39 rapid flu (A+B) 2023 024 [facility], [address] [place] [address], [id number], 4 18:27:02 rapid SARS CoV 2 Ag, QL IA, respirat ory specimen 2023 024 [facility], [address] [place] [address], [id number], 4 18:27:18 respirat ory pathogen s DNA + RNA panel, ANITA+prob e, nasophar ynx 2023 024 [facility], [address] [place] [address], [id number], 4 18:05:53 rapid SARS CoV 2 Ag, QL IA, respirat ory specimen 2022 023 [email or web address] [facility], [address] [place] [address], [id number], 3 15:56:56 Referral None recorded . Procedures None recorded . Surgeries None recorded . Imaging None recorded . Medication Orders potsonyau m chloride ER 20 mEq tablet,e xtended release 2023 024 [facility], [address] [place] [address], [address], 23:08:22 Patient TargetsNo targets recorded. Patient InstructionsNo instructions recorded. Reason for Referral None Reported. Results Created Date Observation Date Name Description Value Unit Range Abnormal Flag Note LastModifiedBy Organization Detail LastModifiedTime 01/13/2001/12/2023 rapid SARS CoV 2 Ag, QL IA, respi rator y speci men rapid SARS CoV 2 Ag, QL IA, respiratory specimen negati ve Not Available [facility] ed [address] [place] [address], [phone], 01/12/2023 15:56:47 01/16/20 24 01/17/2024 COVID -19, FLU A+B AND RSV sars-cov-2, ANITA Not Detect ed not detect ed Not Available [facility] ([facility]) [address] [place], [address], 01/17/2024 18:05:53 01/16/20 24 01/17/2024 COVID -19, FLU A+B AND RSV influenza A, ANITA Detect ed not detect ed abnormal Not Available [facility] ([facility]) [address] [place], [address], 01/17/2024 18:05:53 01/16/20 24 01/17/2024 COVID -19, FLU A+B AND RSV influenza B, ANITA Not Detect ed not detect ed Not Available [facility] ([facility]) [address] [place], [address], 01/17/2024 18:05:53 01/16/20 24 01/17/2024 COVID -19, FLU A+B AND RSV RSV, ANITA Not Detect ed not detect ed Not Available [facility] ([facility]) [address] [place], [address], 01/17/2024 18:05:53 01/16/20 24 01/17/2024 COVID -19, FLU A+B AND RSV test information: Commen t This nucle ic acid ampli ficat ion test was devel oped and its perfo rmanc e birgit cteri stics deter mined by [facility]. Nucle ic acid ampli ficat ion tests inclu de RT-PC R and TMA. This test has not been FDA clear ed or appro eden. This test has been autho rized by FDA under an Emerg ency Use Autho rizat ion (EUA) . This test is only autho rized for the durat ion of time the decla ratio n that circu mstan kassy exist justi fying the autho rizat ion of the emerg ency use of in vitro diagn ostic tests for detec tion of SARS- CoV-2 virus and/o r diagn osis of COVID -19 infec tion under secti on 564(b )(1) of the Act, 21 U.S.C . 360bb b-3(b ) (1), unles s the autho rizat ion is termi nated or revok ed soone r. When diagn ostic testi ng is negat josie, the possi bilit y of a false negat josie resul t shoul d be consi dered in the china xt of a patie nt's recen t expos ures and the prese nce of clini michelle signs and sympt oms consi stent with COVID -19. An indiv idual witho ut sympt oms of COVID -19 and who is not eric ing SARS- CoV-2 virus would expec t to have a negat josie (not detec loni) resul t in this assay . Not Available [facility] ([facility]) [address] [facility], [place], [address], 01/17/2024 18:05:53 01/16/20 24 01/16/2024 rapid SARS CoV 2 Ag, QL IA, respi rator y speci men rapid SARS CoV 2 Ag, QL IA, respiratory specimen negati ve Not Available [facility] [address] [facility], [place], [phone], 01/16/2024 15:11:23 01/16/20 24 01/16/2024 rapid flu (A+B) Flu negati ve Not Available [facility] - [facility] [address] [facility], [place], [address], 01/16/2024 15:11:17 Result Notes None recorded. Medical Equipment None Reported. Medications Name Sig Start Date Stop Date Status Note LastModified by Organization Details LastModified Time delivery fee active Not Available Not Available Not Available cyclobenzaprine 10 mg tablet active Not Available Not Available Not Available atorvastatin 40 mg tablet active Not Available Not Available No t Available fluticasone 250 mcg-salmeterol 50 mcg/dose blistr powdr for inhalation active Not Available Not Available N ot Available acetaminophen 325 mg tablet active Not Available Not Availabl e Not Available carvedilol 6.25 mg tablet active Not Available Not Available No t Available gabapentin 600 mg tablet active Not Available Not Available No t Available trazodone 50 mg tablet active Not Available Not Available Not Available FreeStyle Lancets 28 gauge active Not Available Not Avail able Not Available famotidine 40 mg tablet active Not Available Not Available Not Available isosorbide mononitrate ER 30 mg tablet,extended release 24 hr active Not Available Not Availabl e Not Available Lantus U-100 Insulin 100 unit/mL subcutaneous solution active Not Available Not Available Not Available hydralazine 25 mg tablet active Not Available Not Available No t Available aspirin 81 mg tablet,delayed release active Not Available Not Available Not Available pantoprazole 20 mg tablet,delayed release active Not Available Not Available Not Available hydromorphone 2 mg tablet active Not Available Not Available No t Available linezolid 600 mg tablet active Not Available Not Available Not Available trazodone 100 mg tablet active Not Available Not Available Not Available cephalexin 500 mg capsule active Not Available Not Available N ot Available pantoprazole 40 mg tablet,delayed release active Not Available Not Available Not Available isosorbide dinitrate 20 mg tablet active Not Available Not Available Not Available bumetanide 0.5 mg tablet active Not Available Not Available No t Available trazodone 300 mg tablet active Not Available Not Available Not Available docusate sodium 100 mg capsule active Not Available Not Availab le Not Available gabapentin 300 mg capsule active Not Available Not Available N ot Available bumetanide 1 mg tablet TAKE 1 TABLET BY MOUTH EVERY DAY active Not Available Not Available No t Available montelukast 10 mg tablet active Not Available Not Available No t Available ammonium lactate 12 % topical cream active Not Available Not Available Not Available hydralazine 50 mg tablet active Not Available Not Available No t Available gabapentin 100 mg capsule active Not Available Not Available N ot Available ergocalciferol (vitamin D2) 1,250 mcg (50,000 unit) capsule active Not Available Not Available Not Available doxycycline hyclate 100 mg tablet active Not Available Not Available Not Available calcitriol 0.25 mcg capsule active Not Available Not Available Not Available amoxicillin 500 mg-potassium clavulanate 125 mg tablet TAKE 1 TABLET BY MOUTH TWICE DAILY active Not Available Not Available No t Available Ventolin HFA 90 mcg/actuation aerosol inhaler active Not Available Not Availa ble Not Available Novolog FlexPen U-100 Insulin aspart 100 unit/mL (3 mL) subcutaneous active Not Available Not Available Not Available bupropion HCl XL 150 mg 24 hr tablet, extended release active Not Available Not Available Not Available Diabetic Tussin DM 10 mg-200 mg/5 mL oral liquid TAKE 5ML BY MOUTH EVERY 4-6 HOURS NEEDED X 10 DAYS active Not Available Not Available No t Available lactulose 10 gram/15 mL oral solution active Not Available Not Available Not Available FreeStyle Lite Strips active Not Available Not Available Not Available FeroSul 325 mg (65 mg iron) tablet TAKE 1 TABLET BY MOUTH TWICE DAILY active Not Available Not Available No t Available Lantus Solostar U-100 Insulin 100 unit/mL (3 mL) subcutaneous pen active Not Available Not Available Not Available FreeStyle Dixie Lite kit active Not Available Not Avail able Not Available diclofenac 1 % topical gel active Not Available Not Available Not Available Unifine Pentips 32 gauge x 5/32 needle active Not Available Not Available Not Available Vraylar 1.5 mg capsule active Not Available Not Available Not Available Trulicity 4.5 mg/0.5 mL subcutaneous pen injector active Not Available Not Available Not Available Vitals Date Recorded Heart rate Body weight Respiratory rate Oxygen saturation Oxygen saturation in Arterial blood by Pulse oximetry Body height Body temperature Systolic blood pressure Diastolic blood pressure Provider Name and Address Organization Details Last Updated DateTime 3 80 /min 544623 g 14 /min 96 % 96 % 162.56 cm 97.4 [degF] 150 mm[Hg] 65 mm[Hg] Not Available [facility] 3 13:52:48 Date Recorded Body temperature Body weight Respiratory rate Oxygen saturation Oxygen saturation in Arterial blood by Pulse oximetry Heart rate Systolic blood pressure Diastolic blood pressure Provider Name and Address Organization Details Last Updated DateTime 4 101 [degF] 65922.3 2 g 22 /min 93 % 93 % 102 /min 132 mm[Hg] 76 mm[Hg] Not Available [facility] 4 15:07:43 Date Recorded Heart rate Body weight Respiratory rate Oxygen saturation Oxygen saturation in Arterial blood by Pulse oximetry Body temperature Systolic blood pressure Diastolic blood pressure Provider Name and Address Organization Details Last Updated DateTime 4 86 /min 90762.8 08 g 16 /min 97 % 97 % 97.8 [degF] 176 mm[Hg] 80 mm[Hg] Not Available [facility] 4 12:47:36 Date Recorded Oxygen saturation Oxygen saturation in Arterial blood by Pulse oximetry Respiratory rate Body temperature Heart rate Systolic blood pressure Diastolic blood pressure Provider Name and Address Organization Details Last Updated DateTime 4 99 % 99 % 16 /min 98.1 [degF] 88 /min 182 mm[Hg] 90 mm[Hg] Not Available [facility] 4 09:00:34 Date Recorded Body temperature Heart rate Body weight Respiratory rate Oxygen saturation Oxygen saturation in Arterial blood by Pulse oximetry Body temperature Heart rate Respiratory rate Oxygen saturation Oxygen saturation in Arterial blood by Pulse oximetry Body weight Systolic blood pressure Diastolic blood pressure Systolic blood pressure Diastolic blood pressure Provider Name and Address Organization Details Last Updated DateTime 3 100.5 [degF] 92 /min 21746.1 76 g 14 /min 100 % 100 % 100.5 [degF] 92 /min 14 /min 100 % 100 % 63270.1 76 g 135 mm[Hg] 80 mm[Hg] 135 mm[Hg] 80 mm[Hg] Not Available [facility] 3 15:55:09 Social History None recorded. Functional Status None recorded. Mental Status None recorded. Family History Nothing Reported. Medical History No medical history recorded. Gynecological HistoryNo gynecological history recorded. Obstetrics History GPAL:G 0 P 0 0 0 0 Past Encounters Encounter ID Performer Location Encounter Start Date Encounter Closed Date Diagnosis/Indication Diagnosis SNOMED-CT Code Diagnosis ICD10 Code Diagnosis Note [id number] Junaid Felix MD [facility] - [facility] [address] [place], [place] [id number] 0 12/01/2021 15:12:14 06/02/2022 15:19:20 Nasal congestion 72284159 R09.81 Congestion of nasal sinus 72609510 R09.81 [id number] Dez Carrillo MD [facility] - [facility] [address] [place] [address] 0 12/02/2021 12:18:57 07/17/2022 14:20:33 [id number] Easton Monahan MD [facility] - [facility] [address] [place] [address] 0 02/01/2022 16:35:18 06/09/2022 14:47:07 Congestive heart failure 48553786 I50.9 Patient presents with edema attriuted to CHF. She had already been seen in clinic earlier in the day and bumex dose was increased. There was no dyspnea or acute symptoms to merit IV loop diuretic administra tion at home. [id number] Rancho Polo MD [facility] - [facility] [address] [place], [place] [id number] 0 03/18/2022 16:59:05 06/07/2022 12:12:53 Exposure to SARS-CoV-2 238512997 Z20.822 [id number] Junaid Felix MD Main - [facility] [address] [place], [place] [phone] 05/30/2022 15:02:11 06/09/2022 12:57:37 Dyspnea on exertion 94693263 R06.09 [id number] Beba Rios MD Main - [facility] [address] [place] [phone] 10/05/2022 17:31:55 10/07/2022 10:24:22 Acute viral bronchitis 627926123 J20.8 [id number] Junaid Felix MD Main - [facility] [address] [place] [phone] 01/12/2023 15:54:12 01/17/2023 10:30:44 Viral gastroenteritis 850374466 A08.4 [id number] Rancho Polo MD Main - [facility] [address] [place] [phone] 03/02/2023 13:52:40 03/10/2023 10:46:13 Peripheral edema 191296665 R60.9 [id number] Rosetta Zhang MD Main - [address] [phone] 01/16/2024 15:07:33 01/16/2024 22:27:10 Fever 532587382 R50.9 [id number] Xiao Guerrero MD Main - [address] [phone] 06/07/2024 12:44:50 06/10/2024 22:12:37 Hypokalemia 76592023 E87.6 I provided real -time medical direction via phone for this encounter, and was available for additional phone based assistance as needed. I have reviewed and agree with the Assessment and Plan as documented by the Oracle Adf Developer. Patient given the opportunit y to ask questions. 63 yo seen yesterday in ED for hypokalemi a to 2.5, now being seen by [facility] for close follow up. Just started taking K supplments a few hours ago this am. Unclear the dose as these pills were placed in a pill pack (unable to separate/c larify dose per orthopedics pediatric physician) .Repeat lab 2.6. Will administer 80mEq and advised her to continue taking prescribed supplement al K. will request follow up with [facility] for POC labs on Saturday 06/09. Reviewed warning signs/sx. [id number] Rosetta Zhang MD Main - [address] [phone] 06/09/2024 09:00:29 06/10/2024 22:41:56 Hypokalemia 52709998 E87.6 Health Concerns Section Related Observation LastModified by Organization Detai ls LastModified Time None Recorded Concern Status LastModified by Organization Details LastModified Time None Recorded Advance Directives Directive None Recorded Payers Encounter Date Sequence Insurance Name Policy Number Policy Conde Covered Member ID Conde Member ID Guarantor Name 01/12/2023 1 [facility] - DOS PRIOR TO 2022 - DUAL ELIGIBLE (MEDICARE REPLACEMENT/AD VANTAGE - HMO) Natalie Cutler [id number] Natalie Cutler 03/02/2023 1 [facility] - DOS ON OR AFTER 2022 - DUAL ELIGIBLE - [facility] OPTIONS AND ONE CARE (MEDICARE REPLACEMENT/AD VANTAGE - HMO) Natalie Jones [id number] Natalie Cutler 01/16/2024 1 [facility] - DOS ON OR AFTER 2022 - DUAL ELIGIBLE - [facility] OPTIONS AND ONE CARE (MEDICARE REPLACEMENT/AD VANTAGE - HMO) Natalie Jones [id number] Natalie E Cutler 06/07/2024 1 [facility] - DOS ON OR AFTER 2022 - DUAL ELIGIBLE - [facility] OPTIONS AND ONE CARE (MEDICARE REPLACEMENT/AD VANTAGE - HMO) Natalie Jones [id number] Nataliejune Cutler 06/09/2024 1 [facility] - DOS ON OR AFTER 2022 - DUAL ELIGIBLE - [facility] OPTIONS AND ONE CARE (MEDICARE REPLACEMENT/AD VANTAGE - HMO) Nataliejune Cutler [id number] Nataliejune Cutler Notes Date Note Type Note Provider Name and Address Organization Details Recorded Time 01/12/2023 text/html [facility] Nursing Assessment: Reason For Request: Low grade fever, feeling nausea. Pt states symptoms onset around early this morning. pt is looking for COVID-19 testing. Chief Complaints: Fever/Chills, Nausea/Vomiting PMH: Diabetes, Heart Disease, Hypertension, COPD/Asthma Comments: Member calling in to place a referral, identified via /name. Member has vague complaints of sob, in no distress during triage, no congestion or cough, she does have some nausea and diarrhea. She did have an axillary temp of 100.2 this morning. Denies any sick contacts,\. Member would like to be evaluated. Junaid Felix MD [address] [facility],[address], [place], [address], [employer] 01/12/2023 15:58:30 03/02/2023 text/html [facility] Nursing Assessment: Reason For Request: Pt is a heart failure pt, edema bilaterally moreso on the left>appears to be a 6lb weight gain, refuses to go to ED, no reported respiratory distress. Chief Complaints: CHF, Edema PMH: Diabetes, Heart Disease, Hypertension, COPD/Asthma Comments: Members VNA calling in to place a referral, member verified via /name. Member with hx of CHF, on daily Bumex, had a 5lb weight gain overnight, 203-208lbs this morning, does have BLE edema L .................... .................... .................... .................... .................... .................... .................... . Oracle Adf Developer Note From Ramses Aguila: Pt caox3 in chair. Pt reports her left foot started swelling x7 days ago, got worse last night. Pt denies trauma, pain, difficulty breathing, dizziness or headache. [place] warm and dry, +1 pedal edema left foot (normal temperature, no blisters). Secondary exam unremarkable. No increased work of breathing, lung sounds clear. MC orders ot to double her bumex, from 2mg per day to 4mg until Monday. Pt advised to follow up with PCP SAL Red flags and pt education discussed. .................... .................... .................... .................... .................... .................... .................... . Disposition: Fulfilled Rancho Polo MD [address] [facility],[address], [place], [address], LALITHA - BREANNE MTZ 03/10/2023 08:51:17 01/16/2024 text/html [facility] Nurse Triage Notes (Dionna Martinez): Reason For Request: Franklyn reporting a cold>cold>jackman sputum>wheezing throughout her lungs Chief Complaints: URI PMH: Diabetes, Heart Disease, Hypertension, COPD/Asthma, CHF Comments: Verified identity/address/ Member is a 63 yr old female, a/o3PMH DM, HTN, CHF. COPD, no home o2. The member has been having URI symptoms: a cough with jackman sputum and LS wheezing in all bases. The member has had a cough for one day and all other symptoms for two to three days, temp 99. Member is not taking anything OTC but has used inhalers, no nebs . Member denies any sob Rosetta Zhang MD [address] [facility],[address], [place], [address], [facility] [place] [employer] 01/16/2024 17:54:07 06/07/2024 text/html [facility] Nurse Triage Notes (Anne Malave): Reason For Request: pt's VNA reporting lab work done on monday, 2.5 potassium, was told to go to ED>looking for more lab work Chief Complaints: Electrolyte Imbalance PMH: Diabetes, Heart Disease, Hypertension, COPD/Asthma, CHF Other Allergies: baclofen, sulfur Comments: Members VNA calling in to place a referral, member identified via name and DON. PMHx- DM, HTN, COPD, CHF. ALLERGIES- baclofen and sulfur. Member who had labs done earlier this week, K+ 2.5 and uric acid 10, PCP recommended ED, and member declined, VNA already saw member this morning, and is unable to go back out to draw repeat labs, and member still declining ED. Per VNA member is completely asymptomatic and all vital signs WNL. Member denies chest pain, no palpitations, no sob, cramps or weakness. Member does take a diuretic. [facility] Adf Developer Organization Information for Ben[employer]o [employer] Legal Name: [facility] Transportation Address: [address] [place] [address], [place] [address], Ear Machine Operator: Damian Taylor MD CLIA No.: [id number] Oracle Adf Developer POC Test Results from [facility] (13:27:22) pH: 7.388 pH units pCO2: 38.9 mmHg pO2: 54.6 mmHg Na: 138 mmol/L K: 2.6 mmol/L iCa: 1.10 mmol/L Cl: 100 mmol/L TCO2: 23.3 mEq/L Hct: 33 % Hb: 11.2 g/dL Glu: 505 mg/dL Lac: 4.20 mmol/L Cr: 1.77 mg/dL BUN: 17 mg/dL A .................... .................... .................... .................... .................... .................... .................... . Oracle Adf Developer Note From Benigno Monique: Pt sts no complaints today. Sts feels fine. Sent to recheck POc bloodwork. Pt started K this morning prescribed by her pcp. Pt denies dizziness , weakness, cp, sob , headache, NVD. Pt says she had Dr niels Monday and they called her and said K was low and had gout. Baseline vitals assessed, POc bloodwork k 2.6. Lungs clear. [facility] contacted and 80 ml/eq po given. [facility] scheduling Follow up POc bloodwork for Monday or Monday. Pt education on signs indicating the ER. Pt advised to follow up with pcp. .................... .................... .................... .................... .................... .................... .................... . Disposition: Fulfilled Xiao Guerrero MD [address] [facility],[address], [place], [address], [facility] [place] [employer] 06/07/2024 23:08:29 06/09/2024 text/html CRC Nurse Triage Notes (Anne Malave): Reason For Request: Revisit Chief Complaints: Electrolyte Imbalance PMH: Diabetes, Heart Disease, Hypertension, COPD/Asthma, CHF Other Allergies: baclofen and sulfur Comments: [facility] Remarksneeds follow up for POC istat (potassium check) on monday06/09/2024. Thanks!06/07 Triage: Members [facility] calling in to place a referral, member identified via name and DON. PMHx- DM, HTN, COPD, CHF. ALLERGIES- baclofen and sulfur. Member who had labs done earlier this week, K+ 2.5 and uric acid 10, PCP recommended ED, and member declined, VNA already saw member this morning, and is unable to go back out to draw repeat labs, and member still declining ED. Per VNA member is completely asymptomatic and all vital signs WNL. Member denies chest pain, no palpitations, no sob, cramps or weakness. Member does take a diuretic. Member agreeable to an [facility] visit. Oracle Adf Developer Organization Information for Nish Beyer [place] Legal Name: [facility] Transportation Address: [address] [place] [address], [place] [address], Ear Machine Operator: Damian Taylor MD CLIA No.: [id number] Oracle Adf Developer POC Test Results from [facility] (08:56:03) pH: 7.41 pH units pCO2: 36.3 mmHg pO2: 33.4 mmHg Na: 142 mmol/L K: 2.6 mmol/L iCa: 1.08 mmol/L Cl: 107 mmol/L TCO2: 22.6 mEq/L Hct: 34 % Hb: 11.5 g/dL Glu: 213 mg/dL Lac: 2.5 mmol/L Cr: 1.8 mg/dL BUN: 22 mg/dL A .................... .................... .................... .................... .................... .................... .................... . Oracle Adf Developer Note From Nish Beyer: Today? s visit is a f/u to recheck potassium levels. Pt? s K was 2.5 on Monday, she was treated with oral potassium and given a prescription for oral potassium which she has been taking as directed. Pt denies any complaints including CP, SOB, palpitations, KRAMER, dizziness, f/n/v/d. Pt is alert, NAD. VSS. Afebrile. Non focal neuro exam. Normal gait. Today? s potassium is 2.6. [facility] contacted and recommended the pt be seen in the ED. Pt agreeable to ambulance transport to [place] ED. [facility] to [facility]. .................... .................... .................... .................... .................... .................... .................... . Disposition: Fulfilled Rosetta Zhang MD [address] [facility],[address], [place], [address], BREANNE TYSON 06/09/2024 10:13:32 OBGyn Episode No OBEpisode recorded.
--- OUTSIDE RECORDS SUMMARY | 2024-11-21 15:13 | XMS_ITS | Encounter Summary ---
Author Organization [facility] Address [address] [place] [address] Care Team Providers Care Certified Teacher Assistant Name Role Phone Alison Aguirre APRN Primary Care Provider Soila Pineda SENIOR RADIATION PROTECTION TECHNICIAN Unavailable [phone] Gayatri George APRN Primary Care Provider Neva Velásquez RN Unavailable Albaro Kellogg MD Unavailable Aging, [place] For [facility] Unavailable [phone] Ralph Wilcox MD Unavailable [phone] Otilia Paulson OD Unavailable [phone] Roselia Abernathy MD Unavailable Gayatri George APRN Primary Care Provider Gayatri George APRN Unavailable [phone] Encounter Details Date Type Department Care Team (Late st Contact Info) Description 10/31/2017 Scanned Document [address] [phone] Alison Aguirre APRN [address] [place] [address] Social History Tobacco Use Types Packs/Day Years [...] on filedocumented in this encounter Care Teams Certified Teacher Assistant Relationship Specialty Start Date End Date Alison Aguirre APRN PCP - General Internal Medicine 10/24/17 07/16/18 Gayatri George, ANA [address] [place] [address] PCP - General Family Medicine 07/17/18 11/17/20 Gayatri George, RESEARCH INTERN [address] [place] [address] [id number] PCP - General Family Medicine 11/25/20 01/20/21 Gayatri George, RESEARCH INTERN [address] [place] [address] PCP - United Medicare Attributed 03/02/19 06/01/19 Soila Pineda MSW [address] [place] [place] [address] [facility]+ Dietetics Director 05/08/18 11/26/18 Neva Velásquez, RN [address] [place] [address] [address] [facility] Community Ore Fielder 11/29/18 08/15/21 Albaro Kellogg MD [address] [place] [address] Physician Endocrinology 08/01/19 11/17/20 [facility], [facility] [place] 02/04/20 Ralph Wilcox MD [address] [place] [address] Gastroenterology 11/25/20 Otilia Paulson OD [address] [place] [address] Consulting Provider Optometry 11/25/20 [place] [address] Obstetrics and Gynecology 11/25/20 documented as of this encounter
--- OUTSIDE RECORDS SUMMARY | 2024-11-21 15:13 | XMS_ITS | Encounter Summary ---
Author Organization [facility] Address [address] [place] [address] Care Team Providers Care Tan Room Supervisor Name Role Phone Alison Aguirre APRN Primary Care Provider [phone] Soila Pineda Unavailable [phone] Gayatri George APRN Primary Care Provider [phone] Neva Velásquez RN Unavailable Albaro Kellogg MD Unavailable Aging, [place] For [facility] Unavailable [phone] Ralph Wilcox MD Unavailable [phone] Otilia Paulson OD Unavailable Roselia Abernathy MD Unavailable [phone] Gayatri George APRN Primary Care Provider [phone] Gayatri George APRN Unavailable [phone] Encounter Details Date Type Department Care Team (Late st Contact Info) Description 11/07/2017 Scanned Document [facility] [address] [facility] [address] [place] [address] Provider, Generic Social History Tobacco Use Types [...] on filedocumented in this encounter Care Teams Tan Room Supervisor Relationship Specialty Start Date End Date Alison Aguirre APRN PCP - General Internal Medicine 10/24/17 07/16/18 Gayatri George, SOFTWARE CLERK [address] [place] [address] PCP - General Family Medicine 07/17/18 11/17/20 Gayatri George, SOFTWARE CLERK [address] [address] PCP - General Family Medicine 11/25/20 01/20/21 Gayatri George, SOFTWARE CLERK [address] [place] [address] PCP - [employer] Medicare Attributed 03/02/19 06/01/19 Soila Pineda, STONE RIGGER [address] [place] [address] [facility] PCM+ Thermometer Maker 05/08/18 11/26/18 Neva Velásquez, RN [address] [place] [address] [facility] Community Assistant Designer 11/29/18 08/15/21 Albaro Kellogg MD [address] [address] Physician Endocrinology 08/01/19 11/17/20 Aging, [facility] 02/04/20 Ralph Wilcox MD [address] [address] Gastroenterology 11/25/20 Otilia Paulson OD [address] [place] [address] Consulting Provider Optometry 11/25/20 [place] [address] Obstetrics and Gynecology 11/25/20 documented as of this encounter
--- OUTSIDE RECORDS SUMMARY | 2024-11-21 15:13 | XMS_ITS | Encounter Summary ---
Author Organization [facility] Address [address] [place] [address] Care Team Providers Care Clip Coater Name Role Phone Alison Aguirre APRN Primary Care Provider Soila Pineda BARK FITTER Unavailable [phone] Gayatri George APRN Primary Care Provider Neva Velásquez RN Unavailable Albaro Kellogg MD Unavailable Aging, [place] For [facility] Unavailable [phone] Ralph Wilcox MD Unavailable [phone] Otilia Paulson OD Unavailable [phone] Roselia Abernathy MD Unavailable Gayatri George APRN Primary Care Provider Gayatri George APRN Unavailable [phone] Encounter Details Date Type Department Care Team (Late st Contact Info) Description 11/01/2017 Scanned Document [address] [phone] Alison Aguirre APRN [address] [place] [address] Social History Tobacco Use Types Packs/Day Years [...] on filedocumented in this encounter Care Teams Clip Coater Relationship Specialty Start Date End Date Alison Aguirre APRN PCP - General Internal Medicine 10/24/17 07/16/18 Gayatri George, ANA [address] [place] [address] PCP - General Family Medicine 07/17/18 11/17/20 Gayatri George, DIRECTOR WORK [address] [id number] PCP - General Family Medicine 11/25/20 01/20/21 Gayatri George, DIRECTOR WORK [address] [place] [address] PCP - [employer] Medicare Attributed 03/02/19 06/01/19 Soila Pineda MSW [address] [place] [address] [facility]+ Finance Associate 05/08/18 11/26/18 Neva Velásquez, RN [address] [address] [facility] Community Real Estate Coordinator 11/29/18 08/15/21 Albaro Kellogg MD [address] [place] [address] Physician Endocrinology 08/01/19 11/17/20 [facility], [facility] 02/04/20 Ralph Wilcox MD [address] [place] [address] Gastroenterology 11/25/20 Otilia Paulson OD [address] [place] [address] Consulting Provider Optometry 11/25/20 [place] [address] Obstetrics and Gynecology 11/25/20 documented as of this encounter
--- OUTSIDE RECORDS SUMMARY | 2024-11-21 15:13 | XMS_ITS | Encounter Summary ---
Author Organization [facility] Address [address] [place] [address] Care Team Providers Care Sales Support Advisor Name Role Phone [facility], [place] [facility] Unavailable [phone] Ralph Wilcox MD Unavailable [phone] Otilia Paulson OD Unavailable [phone] Roselia Abernathy MD Unavailable [phone] Encounter Details Date Type Department Care Team (Late st Contact Info) Description 11/05/2024 Telephone [facility] [address] [place] [phone] Garry Chung Social History Tobacco Use Types [...] * Telephone Encounter - Garry Chung - 11/05/2024 1:39 PM EST LVM Colon recall DH OCS documented in this encounter Plan of Treatment Not on file documented as of this encounter Visit Diagnoses Not on filedocumented in this encounter Care Teams Sales Support Advisor Relationship Specialty Start Date End Date [facility], [facility] 02/04/20 Ralph Wilcox MD [address] [place] [address] Gastroenterology 11/25/20 Otilia Paulson OD [address] [place] [address] Consulting Provider Optometry 11/25/20 [place] [address] Obstetrics and Gynecology 11/25/20 documented as of this encounter
== END 2024-11-21 14:59 | disposition home or self-care (01) ==
PROVIDERS: PCP Family Medicine; Visit Provider Internal Medicine Nephrology
DX: I12.9 Hypertensive chronic kidney disease with stage 1 through stage 4 chronic kidney disease, or unspecified chronic kidney disease (principal); N18.4 Chronic kidney disease, stage 4 (severe); D63.1 Anemia in chronic kidney disease; N25.81 Secondary hyperparathyroidism of renal origin
CPT/HCPCS: 99214

== ENCOUNTER → 2024-11-21 14:07 | Outpatient (BNVA) | payer OTHER, SELFPAY | PROVIDERS: PCP Family Medicine; Visit Provider Internal Medicine Nephrology | DX: I12.9 Hypertensive chronic kidney disease with stage 1 through stage 4 chronic kidney disease, or unspecified chronic kidney disease (principal); N18.4 Chronic kidney disease, stage 4 (severe); D63.1 Anemia in chronic kidney disease; N25.81 Secondary hyperparathyroidism of renal origin | CPT/HCPCS: 99212 ==

== ENCOUNTER 2024-12-04 13:35 | Outpatient (AMB) | payer OTHER, SELFPAY ==
--- NOTE | 2024-12-04 13:59 | A.OFFVIS_ITS ---
Vital Signs 12/04/24 14:00 Height 5 ft 6 in Weight 192 lb BMI 31.0 BP 128/68 Blood Pressure Location Lt brachial Position Sitting Pulse 78 Pulse Source Monitor Intake Visit Reasons: N/P/Daniela/Heart Failure Allergies baclofen Allergy (Severe, Verified 11/21/24 14:36) can't move sulfacetamide Allergy (Severe, Verified 11/21/24 14:36) tongue swelling sulfur Allergy (Severe, Verified 11/21/24 14:36) tongue swelling Medication List - Last Reconciled 12/04/24 by Kalia Amaro MD acetaminophen 325 mg PO Q4-6H PRN albuterol sulfate 90 mcg/actuation (Ventolin HFA) 2 puffs PO QID PRN allopurinol 100 mg PO DAILY 30 days aspirin 81 mg PO DAILY atorvastatin 40 mg PO DAILY blood sugar diagnostic (OneTouch Verio test strips) Test Blood Sugar 3 times a day As directed, 90 days blood sugar diagnostic (FreeStyle Lite Strips) USE DIRECTED TO TEST BLOOD SUGAR THREE TIMES DAILY blood-glucose meter (FreeStyle [place] Lite kit) As directed 3x/day blood-glucose meter (OneTouch Verio Flex Meter) Test Blood sugar As directed, 999 days bumetanide 0.5 mg PO DAILY 90 days bupropion HCl XL 150 mg PO QAM calcitriol 0.25 mcg PO DAILY cariprazine (Vraylar) 1.5 mg PO DAILY 30 days carvedilol orally daily; 25mg AM and 6.25mg PM 90 days carvedilol 25 mg PO QAM 90 days clopidogrel 75 mg PO DAILY 90 days dextrose 15 grams PO Q15M PRN diaper,brief,adult,disposable (Fitted Briefs Large) 3 times a day As directed, 30 days diaper,brief,adult,disposable (Comfort Shield Adult Diaper) Large. 3 times a day As directed, 90 days docusate sodium (Colace) 100 mg PO TID PRN 30 days doxycycline hyclate 100 mg PO BID 10 days dulaglutide (Trulicity) 4.5 mg (0.5 mL) subcut QWEEK empagliflozin (Jardiance) 10 mg PO DAILY epoetin sally (Procrit) 2,000 units IV 3XW ergocalciferol (vitamin D2) 1,250 mcg PO QWEEK famotidine 40 mg PO DAILY 90 days fluticasone propion-salmeterol 250-50 mcg/dose (Advair Diskus) 1 ea PO BID 30 days gabapentin 100 mg PO BID glucagon 3 mg/actuation (Baqsimi) 3 mg intranasal ONCE PRN 30 days hydralazine 50 mg PO TID 30 days insulin aspart U-100 (Novolog FlexPen U-100 Insulin aspart) 8 units (0.08 mL) subcut DAILY 30 days insulin glargine (Lantus Solostar U-100 Insulin) 40 units (0.4 mL) subcut QAM 30 days insulin lispro (Admelog U-100 Insulin lispro) 1 sliding scale dose subcut USEASDIRECTD iron sucrose (Venofer) 100 mg (5 mL) IV QWEEK 5 doses isosorbide mononitrate ER 30 mg PO DAILY 90 days lancets (AdiCyteuch Delica Plus Lancet) Test bood sugar 3 times a day, As directed, 90 days miscellaneous medical supply Disposable Absorbent Pads DX: Urinary incontinence As directed, 2 per night, duration 999 days, 30 day supply montelukast 10 mg PO DAILY pantoprazole 40 mg PO DAILY 30 days pen needle, diabetic As directed 4 times a day, 100 day supply polyethylene glycol 3350 (Miralax) 17 grams PO DAILY 14 days sennosides (Evac-U-Gen (sennosides)) 17.2 mg PO DAILY HPI Comments Details: Natalie is here for cardiac consultation. She has been seen by Cardiology at [facility] last year. According to their note, it seems that she has congestive heart failure history. Echocardiogram previously had shown LVEF of 40-45%; hypokinesis of apex, mid to apical anteroseptal wall and basal inferior wall. However, she declined any invasive therapy at this time. In that note, there is mention of her being seen at [facility]. Hence not clear if she has been seen by different cardiology groups. However, patient states she is not actively followed by anyone right now. Within limits of her activity, she seems she is okay. Denies any active shortness of breath although doubt she is truly very active. No clear-cut angina. Otherwise, she feels okay. Many comorbidities including diabetes, hypertension, dyslipidemia, chronic kidney disease. [facility] Medical History Sleep apnea Myocardial infarction CVA (cerebral vascular accident) Type 2 diabetes mellitus with diabetic polyneuropathy Chronic kidney disease, stage 4 (severe) Essential hypertension Hyperlipidemia LDL goal <70 Obesity due to excess calories Chronic, continuous use of opioids Chronic pain syndrome Spinal stenosis, lumbar region with neurogenic claudication Surgical History History of rotator cuff surgery History of abdominoplasty Status post breast reduction Hx of toe surgery Family History Father No problems noted. Mother Diabetes Hypertension Sister No problems noted. Sister No problems noted. Son No problems noted. Social History Household Members: Friend(s) Household Members Other:: roomate Housing: Apartment Alcohol intake: never Patient Tobacco Use Status: Former Tobacco user Tobacco use type: Cigarette Cigarette Packs Per Day: 0.5 e-Cigarette/Vaping Use: Never Used Second Hand Smoke Exposure: No Advance Directives Date on File: 07/07/20 service: No Current occupational status: disabled Current occupational exposures/hazards: No Cognitive needs: No Hearing needs: No Vision needs: No Review of Systems Const Denies weakness ENT Denies dizziness Card Denies chest pain, Denies chest pain with activity, Denies syncope, Denies rapid heart rate, Denies pedal edema, Denies edema, Denies leg edema, Denies lightheadedness, Denies palpitations, Denies dyspnea, Denies dyspnea on exertion and Denies orthopnea Resp Denies cough, Denies dyspnea and Denies dyspnea on exertion GI Denies hematochezia and Denies change in stool character Musc Denies abnormal gait, Denies muscle cramps, Denies muscle weakness, Denies numbness, Denies radiating pain into limb and Denies tingling Neuro Denies abnormal gait, Denies dizziness, Denies syncope, Denies numbness, Denies tingling and Denies weakness Endo Denies palpitations Physical Exam Vital Signs: Last Vital Signs Pulse 78 12/04/24 14:00 BP 128/68 12/04/24 14:00 BMI result Body Mass Index 31.0 Const General: comfortable and no acute distress Orientation/consciousness: patient oriented x3 HEENT Other: Unremarkable Head: Yes normal to inspection Neck Neck: Yes normal visual inspection Chest Chest palpation & inspection: normal inspection of the chest Resp Auscultation: clear to auscultation bilaterally Cardio Palpation: normal PMI Heart sounds: S1 normal heart sound present, S2 normal heart sound present, no gallops, no murmurs and no rubs GI Palpation (GI): Soft to palpation Back/Spine/Pelvis Other: unremarkable Skin General skin exam: no rashes or lesions noted Neuro General: patient oriented x3 Extrem General: Yes normal to inspection Psych Mental Status: mental status grossly normal Office Procedures EKG Details: EKG with underlying sinus rhythm at 78/Min; inferior as well as anterolateral T inversions. [id number], Complete Assessment & Plan Assessment & Plan (1) CHF (congestive heart failure): Code(s): I50.9 - Heart failure, unspecified Category: Medical (2) Chronic kidney disease, stage 4 (severe): Code(s): N18.4 - Chronic kidney disease, stage 4 (severe) Category: Medical Plan Per prior notes, echocardiogram with LVEF of 40-45% with LAD wall motion abnormalities. Apparently recommended cardiac catheterization but refused. She has no overt symptoms, but most likely has underlying coronary disease. We will repeat echocardiogram to assess cardiac function/wall motion abnormalities. Possibly consider pharmacological stress test based on the above but if she were to go for diagnostic catheterization, would be high likelihood of contrast induced nephropathy. We will need to be decided. For cardiac medications, she is mainly on carvedilol. Not on ALEJO inhibitors or ARB or Entresto presumably from advanced kidney disease. Blood pressure is stable on the current regimen. Orders: Orders CA echo transthoracic complete Today I50.9 - Heart failure, unspecified Coding Level of Care Code New Pt Level 4 (19421) Complex EM visit Add On G2211 Diagnoses CHF (congestive heart failure) I50.9 Chronic kidney disease, stage 4 (severe) N18.4 CPT Codes EKG - CPT: 39926-[id number], Complete ([id number])
[2024-12-04 14:00] VITALS: BP 128/68; PULSE 78; BMI 31.0
--- OUTSIDE RECORDS SUMMARY | 2024-12-04 16:09 | XMS_ITS | Patient Health Record ---
Author Organization [facility] Address [address] [place] [address] Care Team Providers Care Inhalation Therapist Name Role Phone RADHA KACIE Primary Care Provider Unavailab BRANDYN Jones Unavailable [phone] Allergies Allergen (clinical drug ingredient) Drug/Non Drug Allergy documented on EMR Reaction Allergy Type Onset Date Status baclofen Baclofen Cannot Move Drug Allergy Activ e Substance with sulfonamide structure and antibacterial mechanism of action (substance) Sulfa Antibiotics Tongue Swells Drug Allergy Active Reason For Referral No Information Medications Medication SIG (Take, Route, Frequency, Duration) Notes Start Date End Date Status Atorvastatin Calcium 40 MG 1 tablet Oral ly Once a day Active Albuterol Sulfate HFA 108 (90 Base) MCG/ACT 2 puff as needed Inhalation qid Active Ergocalciferol 1.25 MG (32109 UT) 1 capsule Orally once a month Active Docusate Sodium 100 MG 1 capsule as need ed Orally Once a day Active Montelukast Sodium 10 MG 1 tablet Orally Once a day Active hydrALAZINE HCl 25 MG 1 tablet Orally Th ree times a day Active Desvenlafaxine ER 100 MG 1 tablet Orally Once a day Active Acetaminophen 325 MG as directed Orally q 8 hrs Active traZODone HCl 300 MG 1 tablet at bedtime Orally Once a day Active Bumetanide 1 MG as directed Orally bid Active Venlafaxine HCl ER 225 MG 1 capsule with food Orally Once a day Active Isosorbide Dinitrate 20 MG 1 tablet Oral ly Twice a day Active Dulaglutide 4.5 MG/0.5ML as directed Sub cutaneous weekly Active buPROPion HCl ER (XL) 150 MG 1 tablet in the morning Orally Once a day Active Fluticasone-Salmeterol Active Lantus SoloStar 100 UNIT/ML as directed Subcutaneous q evening Active Gabapentin 600 MG 1 tablet Orally tid Active Pantoprazole Sodium 40 MG 1 tablet Orall y Once a day Active Lurasidone HCl 20 MG 1 tablet Orally Onc e a day Active Ammonium Lactate 12 % 1 application Exte rnally Twice a day Active Albuterol Sulfate 108 (90 Base) MCG/ACT as directed Inhalation qid Active Calcitriol 0.25 MCG 1 capsule Orally Onc e a day Active NovoLOG FlexPen 100 UNIT/ML as directed Subcutaneous tid Active Social History Tobacco Use: Social History Observation Description Date Details (start date - stop date) Former Smoker NA - NA Tobacco Use/Smoking Question Answer Notes Are you a former smoker Alcohol Screen (Audit-C) Question Answer Notes Did you have a drink contain ing alcohol in the past year? Yes How often did you have a dri nk containing alcohol in the past year? Monthly or less (1 point) How many drinks did you have on a typical day when you were drinking in the past year? 1 or 2 drinks (0 point) Points 1 Interpretation Negative Tobacco use other than smoking: Question Answer Notes Are you an other tobacco user? No Problems Problem Type SNOMED Code ICD Code Onset Dates Problem Status W/U Status Risk Notes Problem Essential hypertension (14135556) Essential (primary) hypertension (I10) Active confirmed Problem Disorder due to type 2 diabetes mellitus (842373977) Type 2 diabetes mellitus with unspecified complications (E11.8) Active confirmed Problem Recurrent major depression (36108561) Major depressive disorder, recurrent, unspecified (F33.9) Active confirmed Problem Obstructive sleep apnea syndrome (disorder) (13571229) Obstructive sleep apnea (adult) (pediatric) (G47.33) Active confirmed Problem Chronic pain syndrome (382077951) Chronic pain syndrome (G89.4) Active confirmed Problem Heart failure (62925089) Heart failure, unspecified (I50.9) Active confirmed Problem Uncomplicated asthma (disorder) (048603574) Unspecified asthma, uncomplicated (J45.909) Active confirmed Problem Gastro-esophageal reflux disease without esophagitis (599383285) Gastro-esophageal reflux disease without esophagitis (K21.9) Active confirmed Problem Chronic kidney disease (599374322) Chronic kidney disease, unspecified (N18.9) Active confirmed Plan Of Treatment Pending Test Test Name Order Date ANTI-HEPATITIS C 12/07/2020 HEP. B SURF. AG 12/07/2020 SYPHILIS TESTING 12/07/2020 HIV AB-AG 4TH GENERATION 12/07/2020 MM Digital Screening Mammogram 3D 2020 Insurance Providers Payer Name Payer Address Payer Phone Subscriber Number Group Number Insured Name Patient Relationship to Insured Coverage Start Date Coverage End Date [facility] [address] [address] [place] [address] [id number] VIET BLAKE Self - patient is the insured Medical (General) History Medical History History ICD Code Essential (primary) hypertension I10 Unspecified asthma, uncomplicated J45.90 9 Type 2 diabetes mellitus with unspecifie d complications E11.8 Chronic kidney disease, unspecified N18. 9 Obstructive sleep apnea (adult) (pediatr ic) G47.33 Chronic pain syndrome G89.4 Spinal stenosis, lumbar region with neur ogenic claudication M48.062 Gastro-esophageal reflux disease without esophagitis K21.9 Heart failure, unspecified I50.9 Major depressive disorder, recurrent, un specified F33.9 Surgical History Surgery Date(Month/Year) Breast Reduction 1976 Ariela Wheeler 2001 Toe Amputation Hospitalization History Reason Date(Month/Year) CHF & [facility] 2020
--- OUTSIDE RECORDS SUMMARY | 2024-12-04 16:09 | XMS_ITS | Clinical Summary ---
Author Organization [facility] Address [address] [place] [address] Care Team Providers Care Health And Fitness Instructor Name Role Phone [facility] Unavailable [phone] Ralph Wilcox MD Unavailable [phone] Otilia Paulson OD Unavailable [phone] Roselia Abernathy MD Unavailable [phone] Allergies Active Allergy Reactions Criticality Noted Date [...] associated with type 2 diabetes mellitus ([facility]) Apply topically 4 (four) times a day [...] diabetes mellitus with neurological manifestations, uncontrolled(250.62) ([facility]) Once nightly injection 120 pen needle 11 03/13/20 Active ACCU-CHEK ABNER PLUS stripIndications:Type II or unspecified type diabetes mellitus with neurological manifestations, uncontrolled(250.62) ([facility]) 4 times daily. 120 test strip 11 03/13/20 Active Continuous Blood Gluc Rail Walker (FREESTYLE EMILE 14 DAY READER) DeviceIndications:Type II or unspecified type diabetes mellitus with neurological manifestations, uncontrolled(250.62) ([facility]) Apply 1 Device topically continuous. 1 Device 03/26/20 Active glucose blood (ACCU-CHEK ABNER PLUS) test stripIndications:Control led type 2 diabetes mellitus with diabetic polyneuropathy, with long-term current use of insulin ([facility]) TEST TWICE DAILY 200 test strip 04/11/20 Active polyethylene glycol-electrolytes (NuLYTELY, TRILYTE) 420 g solution MIX AND DRINK UTD 0 03/20/20 Active Insulin Syringe-Needle U-100 (INSULIN SYRINGE 1CC/31GX5/16 ) 31G X 5 1 ML Misc U WITH EPOGEN Q 14 DAYS 1 04/08/20 Active SUPPLY DME MISCIndications:Stage 2 skin ulcer of sacral region ([facility]) Pressure relieving cushion 1 supply 04/17/20 Active Continuous Blood Gluc Sensor (FREESTYLE EMILE 14 DAY SENSOR) MiscIndications:Type II or unspecified type diabetes mellitus with neurological manifestations, uncontrolled(250.62) ([facility]) Apply 1 Device topically continuous. Apply new [...] pen 3 07/04/20 Active epoetin sally (EPOGEN,PROCRIT) 73242 UNIT/ML injectionIndications:Ane loy, chronic renal failure, stage 4 (severe) ([facility]) Inject 2 mL (20,000 Units total) under the skin every 14 days (2 weeks). 14 mL 1 07/08/20 Active SYRINGE-NEEDLE, DISP, 3 ML (B-D 3CC LUER-LUCRETIA SYR 25GX1/2 ) 25G X 1-1/2 3 ML MiscIndications:Anemia, chronic renal failure, stage 4 (severe) ([facility]) Please use to inject Procrit Q 14 [...] diabetes mellitus with neurological manifestations, uncontrolled(250.62) ([facility]) INJECT SUBCUTANEOUSLY 20 UNITS DAILY 10 pen 3 08/20/20 Active dulaglutide (TRULICITY) 0.75 MG/0.5ML subcutaneous injectionIndications:Con trolled type 2 diabetes mellitus with diabetic polyneuropathy, with long-term current use of insulin ([facility]) Inject 0.5 mL (0.75 mg total) under the skin once a week. 4 pen 3 08/19/20 19 Active carvedilol (COREG) 6.25 MG tabletIndications:Essent ial hypertension TAKE 2 TABLETS(12.5 MG) BY MOUTH TWICE DAILY WITH MEALS 360 tablet 10/07/19 Active DULoxetine (CYMBALTA) 60 MG capsuleIndications:Diabe tic polyneuropathy associated with type 2 diabetes mellitus ([facility]) Take 1 capsule (60 mg total) by [...] 60 mg daily. She is leaving for [place] next week, will be gone for 1 month. She will follow-up with me when she returns. Assessment & Plan (05/01/2019 3:41 PM EDT): Neurology recommended a trial of Cymbalta. Tapering instructions given for Zoloft. After tapered start Cymbalta 30 mg daily. She is leaving for [place] on 05/21 for 1 month, follow-up prior [...] was seeing one when she lived in [place]. She states that she had an EMG [...] function. She uses the pain medication sparingly. DIMENSION QUARRY SUPERVISOR reviewed. She is willing to try Tramadol instead of Percocet. Follow up in 1 month. Shortness of breath 08/15/2018 Assessment & Plan (08/15/2018 6:10 PM EST): Shortness of breath specifically after eating. Order placed for a barium swallow to screen for a hiatal hernia. longterm prescription opiate use 08/15/2018 Moderate persistent asthma [...] she has an upcoming appointment with the jackerman. Repeat A1c due in January. Assessment & [...] & Plan (04/18/2019 7:31 AM EDT): Her hydraulic lift driver ordered repeat blood work, await these results. 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 Assessment & Plan (02/20/2019 3:32 PM EDT): Her hydraulic lift driver ordered repeat labs, anemia noted to be worse. He is increasing her Epogen. She has follow-up with him in April. Assessment & Plan (12/24/2018 1:27 PM EDT): Followed by nephrology, had recent labs. Epogen dosing was increased. She has follow-up at the end of December. Assessment & Plan (09/13/2018 12:49 PM EST): Patient had blood work done that was ordered by her hydraulic lift driver. Noted to be iron deficient, she will start 325 mg of ferrous sulfate daily. Assessment & Plan (08/15/2018 6:09 PM EST): Check iron panel, if this is normal I will start Epogen. Her hydraulic lift driver is in agreement. Vitamin D deficiency 06/26/2017 [...] her iron levels. I also spoke with [facility] and she has an appointment with [...] time. She is due to see her plating inspector in September. Resolved Problems Problem Noted Date Diagnosed Date Resolved Date Stage 2 skin ulcer of sacral region 04/18/2019 06/14/2019 Assessment & Plan (05/01/2019 3:41 PM EDT): Much improved, almost completely healed. Continue with topical zinc daily. Assessment & Plan (04/18/2019 7:30 AM EDT): Prescription for pressure relieving pad given to patient. Also recommend applying lcds-ozg-opltlcl zinc oxide twice daily. Follow-up in 2 weeks for reassessment. Follow-up surgery care 01/13/201802/20 Sexual dysfunction in females 01/11/2018 02/20/2019 Encounters Date Type Department Care Team Description 11/27/2024 Telephone [facility] [address] [address]ND [place] [phone] Ralph Wilcox MD Results Request 11/05/2024 Telephone [facility]3] [address] [place] [address] Garry Chung 09/26/2024 Telephone [facility] [address] [place] [address] Garry Chung from Last 3 [...] Mammogram 06/12/2019 06/12/2018 Hemoglobin A1C 10/31/2019 04/30/2019, 05/2 11/2018, 11/08/2018, Additional history exists Ophthalmology Exam 04/02/2020 04/02/2019 (P reviously Completed), 04/02/2019 Creatinine with GFR 04/22/2020 04/22/2019, 01/08/2019, 01/06/2019, Additional history exists Foot Exam 07/09/2020 07/09/2019 (Prev iously Completed), 03/13/2019, 08/14/2018 (Previously Completed), Additional history exists Lipid Panel 07/09/2020 07/09/2019, 05/2019, 07/24/2018, Additional history exists RSV Vaccine 60 [...] AM EDT Breast screening THINPREP PAP TEST (PIPELINES SUPERINTENDENT) WITH HPV REFLEX Routine 05/02/2018 12:00 AM [...] factors. LDL-C is now calculated using the Deya calculation, which is a validated novel method providing better accuracy than the Friedewald equation in the estimation of LDL-C. Mumtaz SS et al. MILAN. 2013;310(92): 0793-0310 (http://education.Operatix/faq/WLV039) Cholesterol/HDL Ratio 2.0 <5.0 (calc) [facility] [...] Performing Organization Information: ?Site ID: [id number] ?Name: [facility] ?Address: [address] [place] [address], [facility] [place] [address] ?Director: Shawn Goel MD Brenda Tony MD LAB BLOOD ORDERABLES [facility] [address], [place] [address] * (ABNORMAL) POCT Glycosylated Hemoglobin (Hb A1C) (04/30/2019 8:51 AM EDT) Hemoglobin A1C 7.6(A) 4.0 - 6.0 % Lot Number 1 Lead Php Developer Pass Pass Blood specimen (specimen) 04/30/2019 8:51 [...] approximately 13% higher for people identified as -Kosovan. eGFR Non- 26(L) > OR = 60 [...] Performing Organization Information: ?Site ID: [id number] ?Name: [facility] ?Address: [address] [place] [address], [facility] [place] [address] ?Director: Shawn Goel MD Gurjit Baum MD LAB BLOOD ORDERABLES [facility] [address] [facility] 3rd Floor, [place] [address] * OPHTHALMOLOGY TESTING PROCEDURES (04/02/2019) External Provider [...] MAMMOGRAPHY O RDERABLES * ThinPrep Pap Test (Ticket Agent) with HPV Reflex (05/02/2018 12:00 AM EDT) [...] has been evaluated with computer assisted technology. Instrument Maintenance Supervisor: JENNY FELICIANO NL1 Comment: [place], CT(ASCP) CT screening location: [facility] [address] [place], [place] ??[address] Comment [facility] Comment: EXPLANATORY NOTE: [...] Performing Organization Information: ?Site ID: [id number] ?Name: [facility] ?Address: [address] [place] [address], [place] [address] ?Director: Shawn Goel MD Roselia Abernathy MD LAB AMB PATH/CYTO ORDERABLES Performing Organization Address [facility] de Phone Number CELIO [employer] [facility] [place] [address], [place] [address] * HIV 1/2 Ag/Ab CMIA Reflex to Confirmation (06/13/2017 9:51 AM EDT) HIV 1/2 Ag/Ab CMIA Negative Negative HOSPITAL LAB Comment: Results show no evidence of infection by HIV 1/2. If clinically indicated, repeat CMIA or test by nucleic acid amplification. Performed at [facility], [place], [place] ??CT License [id number] ??CLIA [id number] Blood specimen (specimen) 06/13/2017 9:51 AM EDT 06/13/2017 1:00 PM EDT Alison Aguirre APRN LAB BLOOD ORDERAB [facility] from Last 3 Months or Most Recently Relevant to Health Maintenance Advance Directives * Full Code (Latest Code Status on File) Date Activated Date Inactivated Comments 01/07/2019 10:11 AM * Full Code Date Activated Date Inactivated Comments 12/26/2017 3:41 PM 02/06/2018 1:44 PM Question Answer Comments Decision Thoroughly Discussed with: Patient Care Teams Health And Fitness Instructor Relationship Specialty Start Date End Date [facility], [facility] 02/04/20 Ralph Wilcox MD [address] [place] [address] Gastroenterology 11/25/20 Otilia Paulson OD [facility] [place] [address] Consulting Provider Optometry 11/25/20 [place] [address] Obstetrics and Gynecology 11/25/20
--- OUTSIDE RECORDS SUMMARY | 2024-12-04 16:10 | XMS_ITS | Encounter Summary ---
Author Organization [facility] Address [address] [place] [address] Care Team Providers Care Conductor Road Freight Name Role Phone Gayatri George APRN Primary Care Provider [phone] Neva Velásquez RN Unavailable Albaro Kellogg MD Unavailable Aging, [facility] Unavailable [phone] Ralph Wilcox MD Unavailable Otilia Paulson OD Unavailable [phone] Roselia Abernathy MD Unavailable [phone] Gayatri George APRN Primary Care Provider Encounter Details Date Type Department Care Team (Late st Contact Info) Description 09/18/2019 Scanned Document [address] [place] [phone] Gayatri George APRN [address] [place] [address] Social History Tobacco Use Types Packs/Day Years [...] on filedocumented in this encounter Care Teams Conductor Road Freight Relationship Specialty Start Date End Date Gayatri George APRN PCP - General Family Medicine 07/17/18 11/17/20 Gayatri George APRN PCP - General Family Medicine 11/25/20 01/20/21 Neva Velásquez, JAMAR [address] [facility] 4 [place] [address] [facility] Community Polymerization Supervisor 11/29/18 08/15/21 Albaro Kellogg MD [address] [place] [address] Physician Endocrinology 08/01/19 11/17/20 [facility], [facility] 02/04/20 Ralph Wilcox MD [address] [place] [address] Gastroenterology 11/25/20 Otilia Paulson OD [facility] [place] [address] Consulting Provider Optometry 11/25/20 [place] [address] Obstetrics and Gynecology 11/25/20 documented as of this encounter
--- OUTSIDE RECORDS SUMMARY | 2024-12-04 16:10 | XMS_ITS | Encounter Summary ---
Author Organization [facility] Address [address] [place] [address] Care Team Providers Care Academic Intern Name Role Phone Gayatri George APRN Primary Care Provider [phone] Neva Velásquez RN Unavailable Albaro Kellogg MD Unavailable Aging, [facility] Unavailable Ralph Wilcox MD Unavailable Otilia Paulson OD Unavailable [phone] Roselia Abernathy MD Unavailable [phone] Gayatri George APRN Primary Care Provider Reason for Visit * Reason Comments Medication Refill Encounter Details Date Type Department Care Team (Late st Contact Info) Description 08/17/2019 Refill [facility] [address] [phone] Albaro Kellogg MD [address] [place] [phone] Type II or unspecified type diabetes mellitus [...] uncontrolled documented in this encounter Care Teams Academic Intern Relationship Specialty Start Date End Date Gayatri George APRN PCP - General Family Medicine 07/17/18 11/17/20 Gayatri George APRN PCP - General Family Medicine 11/25/20 01/20/21 Neva Velásquez, JAMAR [address] [facility] 4 [place] [address] [facility] Community Warp Trucker 11/29/18 08/15/21 Albaro Kellogg MD [address] [place] [address] Physician Endocrinology 08/01/19 11/17/20 Aging, [facility] 02/04/20 Ralph Wilcox MD [address] [address] Gastroenterology 11/25/20 Otilia Paulson OD [facility] [place] [address] Consulting Provider Optometry 11/25/20 [place] [address] Obstetrics and Gynecology 11/25/20 documented as of this encounter
--- OUTSIDE RECORDS SUMMARY | 2024-12-04 16:10 | XMS_ITS | Encounter Summary ---
Author Organization [facility] Address [address] [place] [address] Care Team Providers Care Manufacture Specialist Name Role Phone Alison Aguirre APRN Primary Care Provider [phone] Soila Pineda Unavailable [phone] Gayatri George APRN Primary Care Provider Neva Velásquez RN Unavailable Albaro Kellogg MD Unavailable Aging, [place] [facility] Unavailable [phone] Ralph Wilcox MD Unavailable [phone] Otilia Paulson OD Unavailable [phone] Roselia Abernathy MD Unavailable [phone] Gayatri George APRN Primary Care Provider [phone] Gayatri George APRN Unavailable [phone] Encounter Details Date Type Department Care Team (Late st Contact Info) Description 11/09/2017 Scanned Document [facility] Heart & Vascular Sarah [facility] at [facility] - Cardiology [address] [place] [address] Brenda Tony MD [address] [place] [address] Social History Tobacco Use Types Packs/Day Years [...] on filedocumented in this encounter Care Teams Manufacture Specialist Relationship Specialty Start Date End Date Alison Aguirre APRN PCP - General Internal Medicine 10/24/17 07/16/18 Gayatri George, BUSHING AND BROACH OPERATOR [address] [place] [address] PCP - General Family Medicine 07/17/18 11/17/20 Gayatri George, BUSHING AND BROACH OPERATOR [address] [employer] [address] [id number] PCP - General Family Medicine 11/25/20 01/20/21 Gayatri George, BUSHING AND BROACH OPERATOR [address] [place] [address] PCP - [employer] Medicare Attributed 03/02/19 06/01/19 Soila Pineda, LICENSED CHEMICAL SPRAY TECHNICIAN [address] [employer] [address] [place] [address] [facility] PCM+ Proof Coins Inspector 05/08/18 11/26/18 Neva Velásquez, RN [address] [employer] [address] [address] [facility] Community Activity Aid 11/29/18 08/15/21 Albaro Kellogg MD [address] [place] [address] Physician Endocrinology 08/01/19 11/17/20 [facility], [facility] 02/04/20 Ralph Wilcox MD [address] [place] [address] Gastroenterology 11/25/20 Otilia Paulson OD [address] [place] [address] Consulting Provider Optometry 11/25/20 [place] [address] Obstetrics and Gynecology 11/25/20 documented as of this encounter
--- OUTSIDE RECORDS SUMMARY | 2024-12-04 16:10 | XMS_ITS | Encounter Summary ---
Author Organization [facility] Address [address] [place] [address] Care Team Providers Care Commercial Energy Auditor Name Role Phone Gayatri George APRN Primary Care Provider [phone] Neva Velásquez RN Unavailable Albaro Kellogg MD Unavailable Aging, [facility] Unavailable Ralph Wilcox MD Unavailable Otilia Paulson OD Unavailable [phone] Roselia Abernathy MD Unavailable Gayatri George DISASTER RECOVERY ANALYST Primary Care Provider Gayatri George APRN Unavailable [phone] Reason for Visit * Reason Comments Medication Refill Encounter Details Date Type Department Care Team (Late st Contact Info) Description 01/28/[address] [place] [phone] Gayatri George, DISASTER RECOVERY ANALYST [address] [place] [address] Insomnia, unspecified type Social History Tobacco Use [...] type documented in this encounter Care Teams Commercial Energy Auditor Relationship Specialty Start Date End Date Gayatri George APRN PCP - General Family Medicine 07/17/18 11/17/20 Gayatri George APRN PCP - General Family Medicine 11/25/20 01/20/21 Gayatri George APRN [address] [place] [address] PCP - [employer] Medicare Attributed 03/02/19 06/01/19 Neva Velásquez, JAMAR [address] [facility] 4 [place] [address] [facility] Community Lead Inspector 11/29/18 08/15/21 Albaro Kellogg MD [address] [place] [address] Physician Endocrinology 08/01/19 11/17/20 [facility], [facility] 02/04/20 Ralph Wilcox MD [address] [place] [address] Gastroenterology 11/25/20 Otilia Paulson OD [address] [place] [address] Consulting Provider Optometry 11/25/20 [place] [address] Obstetrics and Gynecology 11/25/20 documented as of this encounter
--- OUTSIDE RECORDS SUMMARY | 2024-12-04 16:10 | XMS_ITS | Encounter Summary ---
Author Organization [facility] Address [address] [place] [address] Care Team Providers Care Night Baker Name Role Phone Alison Aguirre APRN Primary Care Provider [phone] Gurjit Baum MD Primary Care Provider [phone] Alison Aguirre APRN Primary Care Provider [phone] Soila Pineda Unavailable [phone] Gayatri George APRN Primary Care Provider Neva Velásquez RN Unavailable Albaro Kellogg MD Unavailable Aging, [facility] Unavailable [phone] Ralph Wilcox MD Unavailable [phone] Otilia Paulson OD Unavailable [phone] Roselia Abernathy MD Unavailable [phone] Gayatri George APRN Primary Care Provider Gayatri George APRN Unavailable [phone] Encounter Details Date Type Department Care Team (Late st Contact Info) Description 07/11/2017 Scanned Document [address] [phone] Alison Aguirre APRN [address] [place] [address] Social History Tobacco Use Types Packs/Day Years [...] on filedocumented in this encounter Care Teams Night Baker Relationship Specialty Start Date End Date Alison Aguirre APRN PCP - General Internal Medicine 06/06/17 10/15/17 Gurjit Baum MD [address] [place] [address] PCP - General Internal Medicine 10/16/17 10/23/17 Alison Aguirre APRN PCP - General Internal Medicine 10/24/17 07/16/18 Gayatri George APRN [address] [place] [address] PCP - General Family Medicine 07/17/18 11/17/20 Gayatri George APRN [address] [place] [address] PCP - General Family Medicine 11/25/20 01/20/21 Gayatri George APRN [address] [place] [address] PCP - United Medicare Attributed 03/02/19 06/01/19 Soila Pineda, FRONT ELEVATOR OPERATOR [address] [place] [address] ICP PCMH+ Rope Coiling Machine Operator 05/08/18 11/26/18 Neva Velásquez, RN [address] [place] [address] [facility] Community Foam Rubber Fabricator 11/29/18 08/15/21 Albaro Kellogg MD [address] [place] [address] Physician Endocrinology 08/01/19 11/17/20 Aging, [facility] 02/04/20 Ralph Wilcox MD [address] [place] [address] Gastroenterology 11/25/20 Otilia Paulson OD [address] [place] [address] Consulting Provider Optometry 11/25/20 [place] [address] Obstetrics and Gynecology 11/25/20 documented as of this encounter
--- OUTSIDE RECORDS SUMMARY | 2024-12-04 16:10 | XMS_ITS | Encounter Summary ---
Author Organization [facility] Address [address] [place] [address] Care Team Providers Care Fundraiser Name Role Phone Soila Pineda Unavailable [phone] Gayatri George APRN Primary Care Provider [phone] Neva Velásquez RN Unavailable Albaro Kellogg MD Unavailable Aging, [place] [facility] Unavailable [phone] Ralph Wilcox MD Unavailable [phone] Otilia Paulson OD Unavailable [phone] Roselia Abernathy MD Unavailable [phone] Gayatri George APRN Primary Care Provider [phone] Gayatri George APRN Unavailable [phone] Encounter Details Date Type Department Care Team (Late st Contact Info) Description 09/11/2018 Scanned Document [facility] [address] [place] [address] Provider, Generic Social History Tobacco Use Types [...] on filedocumented in this encounter Care Teams Fundraiser Relationship Specialty Start Date End Date Gayatri George, ANA [address] [facility] 4 [place] [address] PCP - General Family Medicine 07/17/18 11/17/20 Gayatri George, NUCLEAR INSTRUCTOR [address] [address] PCP - General Family Medicine 11/25/20 01/20/21 Gayatri George, NUCLEAR INSTRUCTOR 30 [place] [address] PCP - United Medicare Attributed 03/02/19 06/01/19 Soila Pineda, ENGINEER CONDUCTOR [address] [facility] 4 [place] [address] ICP PCMH+ Spray Blender 05/08/18 11/26/18 Neva Velásquez, RN [address] [facility] 4 [place] [address] ICP Community Preliminary School Psychologist 11/29/18 08/15/21 Albaro Kellogg MD [address] [place] [address] Physician Endocrinology 08/01/19 11/17/20 [facility], [facility] 02/04/20 Ralph Wilcox MD [address] [place] [address] Gastroenterology 11/25/20 Otilia Paulson OD [address] [place] [address] Consulting Provider Optometry 11/25/20 Roselia Abernathy [place] [address] Obstetrics and Gynecology 11/25/20 documented as of this encounter
--- OUTSIDE RECORDS SUMMARY | 2024-12-04 16:10 | XMS_ITS | Encounter Summary ---
Author Organization [facility] Address [address] [place] [address] Care Team Providers Care Shirt Ironer Name Role Phone Soila Pineda Unavailable [phone] Gayatri George APRN Primary Care Provider [phone] Neva Velásquez RN Unavailable Albaro Kellogg MD Unavailable Aging, [place] [facility] [place] Unavailable [phone] Ralph Wilcox MD Unavailable [phone] Otilia Paulson OD Unavailable [phone] Roselia Abernathy MD Unavailable [phone] Gayatri George APRN Primary Care Provider [phone] Gayatri George APRN Unavailable [phone] Encounter Details Date Type Department Care Team (Late st Contact Info) Description 08/30/2018 Scanned Document [facility] [place] [address] [facility] [address] [place] [address] Delilah Domingo, DPM [address] [facility] [address] [place] [address] Social History Tobacco Use Types Packs/Day Years [...] on filedocumented in this encounter Care Teams Shirt Ironer Relationship Specialty Start Date End Date Gayatri George, RETAIL SHIFT MANAGER [address] [place] [address] PCP - General Family Medicine 07/17/18 11/17/20 Gayatri George, RETAIL SHIFT MANAGER [address] [address] PCP - General Family Medicine 11/25/20 01/20/21 Gayatri George, RETAIL SHIFT MANAGER 30 [place] [address] PCP - United Medicare Attributed 03/02/19 06/01/19 Soila Pineda, SUPERVISOR MATRIX [address] [place] [address] [facility] PCMH+ Engraver Copperplate 05/08/18 11/26/18 Neva Velásquez, JAMAR [address] 4 [place] [address] [facility] Community Director Zone 11/29/18 08/15/21 Albaro Kellogg MD [address] [place] [address] Physician Endocrinology 08/01/19 11/17/20 [facility], [facility] 02/04/20 Ralph Wilcox MD [address] [place] [address] Gastroenterology 11/25/20 Otilia Paulson OD [address] [place] [address] Consulting Provider Optometry 11/25/20 [place] [address] Obstetrics and Gynecology 11/25/20 documented as of this encounter
--- OUTSIDE RECORDS SUMMARY | 2024-12-04 16:10 | XMS_ITS | Encounter Summary ---
Author Organization [facility] Address [address] [place] [address] Care Team Providers Care Software Development Specialist Name Role Phone Alison Aguirre APRN Primary Care Provider Soila Pineda Unavailable [phone] Gayatri George APRN Primary Care Provider Neva Velásquez RN Unavailable Albaro Kellogg MD Unavailable [facility], [place] [facility] Unavailable [phone] Ralph Wilcox MD Unavailable [phone] Otilia Paulson OD Unavailable [phone] Roselia Abernathy MD Unavailable [phone] Gayatri George APRN Primary Care Provider Gayatri George APRN Unavailable [phone] Encounter Details Date Type Department Care Team (Late st Contact Info) Description 12/21/2017 Telephone [facility] [address] [place] [address] Juan Miguel Pollard MD [address] [place] [address] Social History Tobacco Use Types Packs/Day Years [...] on filedocumented in this encounter Care Teams Software Development Specialist Relationship Specialty Start Date End Date Alison Aguirre APRN PCP - General Internal Medicine 10/24/17 07/16/18 Gayatri George, CHRISTIAN SCIENCE NURSE [address] [place] [address] PCP - General Family Medicine 07/17/18 11/17/20 Gayatri George, CHRISTIAN SCIENCE NURSE [address] [employer] [address] [id number] PCP - General Family Medicine 11/25/20 01/20/21 Gayatri George, CHRISTIAN SCIENCE NURSE 30 [place] [address] PCP - United Medicare Attributed 03/02/19 06/01/19 Soila Pineda, CUFF CUTTER [address] [employer] [address] [place] [address] [facility] PCM+ Director Risk 05/08/18 11/26/18 Neva Velásquez, RN [address] [employer] [address] [place] [address] [facility] Community Manager Physical 11/29/18 08/15/21 Albaro Kellogg MD [address] [place] [address] Physician Endocrinology 08/01/19 11/17/20 [facility], [facility] 02/04/20 Ralph Wilcox MD [address] [place] [address] Gastroenterology 11/25/20 Otilia Paulson OD [address] [place] [address] Consulting Provider Optometry 11/25/20 [place] [address] Obstetrics and Gynecology 11/25/20 documented as of this encounter
--- OUTSIDE RECORDS SUMMARY | 2024-12-04 16:10 | XMS_ITS | Encounter Summary ---
Author Organization [facility] Address [address] [place] [address] Care Team Providers Care Transportation Officer Name Role Phone Gayatri George APRN Primary Care Provider [phone] Neva Velásquez RN Unavailable Albaro Kellogg MD Unavailable Aging, [facility] Unavailable Ralph Wilcox MD Unavailable [phone] Otilia Paulson OD Unavailable [phone] Roselia Abernathy MD Unavailable [phone] Gayatri George APRN Primary Care Provider Gayatri George APRN Unavailable [phone] Encounter Details Date Type Department Care Team (Late st Contact Info) Description 05/03/2019 Scanned Document [facility] Endocrinology [address] [phone] Qi Aponte PA [address] [place] [address] [phone] Social History Tobacco Use Types Packs/Day Years [...] on filedocumented in this encounter Care Teams Transportation Officer Relationship Specialty Start Date End Date Gayatri George APRN PCP - General Family Medicine 07/17/18 11/17/20 Gayatri George APRN PCP - General Family Medicine 11/25/20 01/20/21 Gayatri George APRN 30 [place] [address] PCP - United Medicare Attributed 03/02/19 06/01/19 Neva Velásquez, RN [address] [address] [facility] Community Silk Finisher 11/29/18 08/15/21 Albaro Kellogg MD [address] [place] [address] Physician Endocrinology 08/01/19 11/17/20 Aging, [facility] 02/04/20 Ralph Wilcox MD [address] [place] [address] Gastroenterology 11/25/20 Otilia Paulson OD [address] [place] [address] Consulting Provider Optometry 11/25/20 [place] [address] Obstetrics and Gynecology 11/25/20 documented as of this encounter
--- OUTSIDE RECORDS SUMMARY | 2024-12-04 16:10 | XMS_ITS | Encounter Summary ---
Author Organization [facility] Address [address] [place] [address] Care Team Providers Care Demolitionist Name Role Phone Soila Pineda MSW Unavailable [phone] Gayatri George APRN Primary Care Provider [phone] Neva Velásquez RN Unavailable Albaro Kellogg MD Unavailable Aging, [place] [facility] Unavailable Ralph Wilcox MD Unavailable Otilia Paulson OD Unavailable [phone] Roselia Abernathy MD Unavailable Gayatri George APRN Primary Care Provider [phone] Gayatri George APRN Unavailable [phone] Encounter Details Date Type Department Care Team (Late st Contact Info) Description 08/13/2018 Scanned Document [address] [place] [phone] Provider, External, [address] [place] [address] Social History Tobacco Use Types Packs/Day Years [...] on filedocumented in this encounter Care Teams Demolitionist Relationship Specialty Start Date End Date Gayatri George, NANOELECTRONICS ENGINEER [address] [place] [address] PCP - General Family Medicine 07/17/18 11/17/20 Gayatri George, NANOELECTRONICS ENGINEER [address] [address] PCP - General Family Medicine 11/25/20 01/20/21 Gayatri George, NANOELECTRONICS ENGINEER 30 [place] [address] PCP - United Medicare Attributed 03/02/19 06/01/19 Soila Pineda, CONFERENCE SERVICE COORDINATOR [address] [place] [address] [facility] PCM+ Community Relations Manager 05/08/18 11/26/18 Neva Velásquez, RN [address] [place] [address] [facility] Community Taximeter Repairer 11/29/18 08/15/21 Albaro Kellogg MD [address] [place] [address] Physician Endocrinology 08/01/19 11/17/20 Aging, [place] [facility] 02/04/20 Ralph Wilcox MD [address] [place] [address] Gastroenterology 11/25/20 Otilia Paulson OD [address] [place] [address] Consulting Provider Optometry 11/25/20 [place] [address] Obstetrics and Gynecology 11/25/20 documented as of this encounter
--- OUTSIDE RECORDS SUMMARY | 2024-12-04 16:10 | XMS_ITS | Encounter Summary ---
Author Organization [facility] Address [address] [place] [address] Care Team Providers Care Pipe Organ Mechanic Apprentice Name Role Phone Soila Pineda MSW Unavailable [phone] Gayatri George APRN Primary Care Provider [phone] Neva Velásquez RN Unavailable Albaro Kellogg MD Unavailable Aging, [place] [facility] Unavailable Ralph Wilcox MD Unavailable [phone] Otilia Paulson OD Unavailable [phone] Roselia Abernathy MD Unavailable Gayatri George APRN Primary Care Provider [phone] Gayatri George APRN Unavailable [phone] Encounter Details Date Type Department Care Team (Late st Contact Info) Description 09/11/2018 Scanned Document [address] [place] [phone] Provider, External, [address] [place] [address] Social History Tobacco Use Types Packs/Day Years [...] on filedocumented in this encounter Care Teams Pipe Organ Mechanic Apprentice Relationship Specialty Start Date End Date Gayatri George, DIRECTOR ENERGY [address] [place] [address] PCP - General Family Medicine 07/17/18 11/17/20 Gayatri George, DIRECTOR ENERGY [address] [address] PCP - General Family Medicine 11/25/20 01/20/21 Gayatri George, DIRECTOR ENERGY 30 [place] [address] PCP - United Medicare Attributed 03/02/19 06/01/19 Soila Pineda, RETAIL BEAUTY SPECIALIST [address] [place] [address] [facility] PCM+ Supercharger Repair Supervisor 05/08/18 11/26/18 Neva Velásquez, RN [address] [place] [address] [facility] Community Director Of Anesthesia Services 11/29/18 08/15/21 Albaro Kellogg MD [address] [place] [address] Physician Endocrinology 08/01/19 11/17/20 Aging, [place] [facility] 02/04/20 Ralph Wilcox MD [address] [place] [address] Gastroenterology 11/25/20 Otilia Paulson OD [address] [place] [address] Consulting Provider Optometry 11/25/20 [place] [address] Obstetrics and Gynecology 11/25/20 documented as of this encounter
--- OUTSIDE RECORDS SUMMARY | 2024-12-04 16:10 | XMS_ITS | Encounter Summary ---
Author Organization [facility] Address [address] [place] [address] Care Team Providers Care Tower Control Operator Name Role Phone Gayatri George APRN Primary Care Provider [phone] Neva Velásquez RN Unavailable Albaro Kellogg MD Unavailable Aging, [facility] Unavailable Ralph Wilcox MD Unavailable Otilia Paulson OD Unavailable [phone] Roselia Abernathy MD Unavailable [phone] Gayatri George APRN Primary Care Provider Gayatri George APRN Unavailable [phone] Encounter Details Date Type Department Care Team (Late st Contact Info) Description 05/01/2019 Scanned Document [facility] Endocrinology [address] [phone] Qi Aponte PA [address] [place] [phone] Social History Tobacco Use Types Packs/Day Years [...] on filedocumented in this encounter Care Teams Tower Control Operator Relationship Specialty Start Date End Date Gayatri George APRN PCP - General Family Medicine 07/17/18 11/17/20 Gayatri George APRN PCP - General Family Medicine 11/25/20 01/20/21 Gayatri George APRN 30 [place] [address] PCP - United Medicare Attributed 03/02/19 06/01/19 Neva Velásquez, RN [address] [address] [facility] Community Division Manager 11/29/18 08/15/21 Albaro Kellogg MD [address] [place] [address] Physician Endocrinology 08/01/19 11/17/20 Aging, [facility] 02/04/20 Ralph Wilcox MD [address] [place] [address] Gastroenterology 11/25/20 Otilia Paulson OD [address] [place] [address] Consulting Provider Optometry 11/25/20 [place] [address] Obstetrics and Gynecology 11/25/20 documented as of this encounter
--- OUTSIDE RECORDS SUMMARY | 2024-12-04 16:10 | XMS_ITS | Encounter Summary ---
Author Organization [facility] Address [address] [place] [address] Care Team Providers Care Payroll Tax Analyst Name Role Phone Alison Aguirre APRN Primary Care Provider Soila Pineda AQUA AMMONIA OPERATOR Unavailable [phone] Gayatri George APRN Primary Care Provider Neva Velásquez RN Unavailable Albaro Kellogg MD Unavailable Aging, [place] [facility] Unavailable [phone] Ralph Wilcox MD Unavailable [phone] Otilia Paulson OD Unavailable [phone] Roselia Abernathy MD Unavailable [phone] Gayatri George APRN Primary Care Provider Gayatri George APRN Unavailable [phone] Encounter Details Date Type Department Care Team (Late st Contact Info) Description 11/28/2017 Scanned Document [address] [phone] Alison Aguirre APRN [address] [place] [address] Social History Tobacco Use Types Packs/Day Years [...] on filedocumented in this encounter Care Teams Payroll Tax Analyst Relationship Specialty Start Date End Date Alison Aguirre APRN PCP - General Internal Medicine 10/24/17 07/16/18 Gayatri George, ANA [address] [place] [address] PCP - General Family Medicine 07/17/18 11/17/20 Gayatri George, WAREHOUSE INSULATION WORKER [address] [phone] PCP - General Family Medicine 11/25/20 01/20/21 Gayatri George, WAREHOUSE INSULATION WORKER 30 [place] [address] PCP - United Medicare Attributed 03/02/19 06/01/19 Soila Pineda MSW [address] [place] [address] [facility]+ Pet Care Assistant 05/08/18 11/26/18 Neva Velásquez, RN [address] [address] [facility] Community Dolphin Trainer 11/29/18 08/15/21 Albaro Kellogg MD [address] [place] [address] Physician Endocrinology 08/01/19 11/17/20 [facility], [facility] 02/04/20 aRlph Wilcox MD [address] [place] [address] Gastroenterology 11/25/20 Otilia Paulson OD [address] [place] [address] Consulting Provider Optometry 11/25/20 [place] [address] Obstetrics and Gynecology 11/25/20 documented as of this encounter
--- OUTSIDE RECORDS SUMMARY | 2024-12-04 16:10 | XMS_ITS | Encounter Summary ---
Author Organization [facility] Address [address] [place] [address] Care Team Providers Care Welding Lead Burner Name Role Phone Gayatri George APRN Primary Care Provider [phone]- [phone] Neva Velásquez RN Unavailable Albaro Kellogg MD Unavailable Aging, [facility] Unavailable [phone] Ralph Wilcox MD Unavailable Otilia Paulson OD Unavailable [phone] Roselia Abernathy MD Unavailable [phone] Gayatri George APRN Primary Care Provider Gayatri George APRN Unavailable [phone] Encounter Details Date Type Department Care Team (Late st Contact Info) Description 01/15/[address] [facility] Medical [facility] Neurology [address] 6[address] Any Devine PA 462 [facility] 201 [place], [place] [phone] Social History Tobacco Use Types Packs/Day Years [...] WITH YOU. PT CONTACT INFORMATION IS FOLLOWS [phone] PLEASE CALL YOU DO NOT HAVE AN APT UNTIL 01/31/2019 documented in this encounter Plan of Treatment Not on file documented as of this encounter Visit Diagnoses Not on filedocumented in this encounter Care Teams Welding Lead Burner Relationship Specialty Start Date End Date Gayatri George APRN PCP - General Family Medicine 07/17/18 11/17/20 Gayatri George APRN PCP - General Family Medicine 11/25/20 01/20/21 Gayatri George APRN [address] [place] [address] PCP - [place] Medicare Attributed 03/02/19 06/01/19 Neva Velásquez, RN [address] [facility] 4 [place] [address] [facility] Community Publications Sales Representative 11/29/18 08/15/21 Albaro Kellogg MD [address] [place] [address] Physician Endocrinology 08/01/19 11/17/20 Aging, [facility] 02/04/20 Ralph Wilcox MD [address] [place] [address] Gastroenterology 11/25/20 Otilia Paulson OD [address] [place] [address] Consulting Provider Optometry 11/25/20 [place] [address] Obstetrics and Gynecology 11/25/20 documented as of this encounter
--- OUTSIDE RECORDS SUMMARY | 2024-12-04 16:10 | XMS_ITS | Encounter Summary ---
Author Organization [facility] Address [address] [place] [address] Care Team Providers Care Appliquer Name Role Phone Gayatri George APRN Primary Care Provider [phone] Neva Velásquez RN Unavailable Albaro Kellogg MD Unavailable Aging, [place] [facility] Unavailable [phone] Ralph Wilcox MD Unavailable [phone] Otilia Paulson OD Unavailable [phone] Roselia Abernathy MD Unavailable [phone] Gayatri George APRN Primary Care Provider Encounter Details Date Type Department Care Team (Late st Contact Info) Description 08/14/[address] [facility] INTERNAL MED SCAN Gayatri George APRN [address] [place] [address] Social History Tobacco Use Types Packs/Day Years [...] on filedocumented in this encounter Care Teams Appliquer Relationship Specialty Start Date End Date Gayatri George APRN PCP - General Family Medicine 07/17/18 11/17/20 Gayatri George APRN PCP - General Family Medicine 11/25/20 01/20/21 Neva Velásquez, JAMAR [address] [facility] 4 [place] [address] [facility] Community Pool Nurse 11/29/18 08/15/21 Albaro Kellogg MD [address] [place] [address] Physician Endocrinology 08/01/19 11/17/20 [facility], [place] [facility] 02/04/20 Ralph Wilcox MD [address] [place] [address] Gastroenterology 11/25/20 Otilia Paulson OD [facility] [place] [address] Consulting Provider Optometry 11/25/20 [place] [address] Obstetrics and Gynecology 11/25/20 documented as of this encounter
--- OUTSIDE RECORDS SUMMARY | 2024-12-04 16:10 | XMS_ITS | Encounter Summary ---
Author Organization [facility], Located [facility] Address [address] [place] [address] Care Team Providers Care Public Relations Associate Name Role Phone [facility] Unavailable Ralph Wilcox MD Unavailable Otilia Paulson OD Unavailable [phone] Roselia Abernathy MD Unavailable Reason for Visit * Reason Comments Results Request Encounter Details Date Type Department Care Team (Late st Contact Info) Description 11/27/[address] [facility] [address] [phone] Ralph Wilcox MD [address] [id number] Results Request Social History Tobacco Use Types Packs/Day Years [...] encounter Miscellaneous Notes * Telephone Encounter - Sakshi Abreu - 11/27/2024 9:40 AM EST Emelia from [facility] PCP call lvm on overflow to check status of medical record she requested. Call Emelia and tell her to call medical record dept.. Phone number provided. documented in this encounter Plan of Treatment Not on file documented as of this encounter Visit Diagnoses Not on filedocumented in this encounter Care Teams Public Relations Associate Relationship Specialty Start Date End Date [facility]ging, [facility] 02/04/20 Ralph Wilcox MD [address] [place] [address] Gastroenterology 11/25/20 Otilia Paulson OD [facility] [place] [address] Consulting Provider Optometry 11/25/20 [place] [address] Obstetrics and Gynecology 11/25/20 documented as of this encounter
--- OUTSIDE RECORDS SUMMARY | 2024-12-04 16:10 | XMS_ITS | Encounter Summary ---
Author Organization [facility] Address [address] [place] [address] Care Team Providers Care Motor Vehicle Lecturer Name Role Phone Gayatri George APRN Primary Care Provider [phone] Neva Velásquez RN Unavailable Albaro Kellogg MD Unavailable Aging, [facility] Unavailable [phone] Ralph Wilcox MD Unavailable Otilia Paulson OD Unavailable Roselia Abernathy MD Unavailable Gayatri George APRN Primary Care Provider [phone] Gayatri George APRN Unavailable [phone] Reason for Visit * Reason Comments Medication Refill Encounter Details Date Type Department Care Team (Late st Contact Info) Description 01/15/[address] [place] [phone] Gayatri George, ANA [address] [place] [address] Gastroesophageal reflux disease, esophagitis presence not specified; [...] complicated documented in this encounter Care Teams Motor Vehicle Lecturer Relationship Specialty Start Date End Date Gayatri George APRN PCP - General Family Medicine 07/17/18 11/17/20 Gayatri George APRN PCP - General Family Medicine 11/25/20 01/20/21 Gayatri George APRN 30 [place] [address] PCP - United Medicare Attributed 03/02/19 06/01/19 Neva Velásquez, RN [address] [address] [facility] Community Residential Leasing Agent 11/29/18 08/15/21 Albaro Kellogg MD [address] [place] [address] Physician Endocrinology 08/01/19 11/17/20 Aging, [facility] 02/04/20 Ralph Wilcox MD [address] [place] [address] Gastroenterology 11/25/20 Otilia Paulson OD [facility] [place] [address] Consulting Provider Optometry 11/25/20 [place] [address] Obstetrics and Gynecology 11/25/20 documented as of this encounter
--- OUTSIDE RECORDS SUMMARY | 2024-12-04 16:10 | XMS_ITS | Encounter Summary ---
Author Organization [facility] Address [address] [place] [address] Care Team Providers Care Mill Tender Warm Up Name Role Phone Gayatri George APRN Primary Care Provider [phone] Neva Velásquez RN Unavailable Albaro Kellogg MD Unavailable Aging, [facility] Unavailable [phone] Ralph Wilcox MD Unavailable Otilia Paulson OD Unavailable [phone] Roselia Abernathy MD Unavailable [phone] Gayatri George APRN Primary Care Provider Encounter Details Date Type Department Care Team (Late st Contact Info) Description 09/11/2019 Scanned Document [address] [place] [phone] Gayatri George APRN [address] [place] [address] Social History Tobacco Use Types Packs/Day Years [...] on filedocumented in this encounter Care Teams Mill Tender Warm Up Relationship Specialty Start Date End Date Gayatri George APRN PCP - General Family Medicine 07/17/18 11/17/20 Gayatri George APRN PCP - General Family Medicine 11/25/20 01/20/21 Neva Velásquez, JAMAR 1290 [facility] 4 [place] [address] [facility] Community Wind Turbine Electrical Engineer 11/29/18 08/15/21 Albaro Kellogg MD [address] [place] [address] Physician Endocrinology 08/01/19 11/17/20 [facility], [facility] 02/04/20 Ralph Wilcox MD [address] [place] [address] Gastroenterology 11/25/20 Otilia Paulson OD [facility] [place] [address] Consulting Provider Optometry 11/25/20 [place] [address] Obstetrics and Gynecology 11/25/20 documented as of this encounter
--- OUTSIDE RECORDS SUMMARY | 2024-12-04 16:10 | XMS_ITS | Encounter Summary ---
Author Organization [facility] Address [address] [place] [address] Care Team Providers Care Detailer Name Role Phone Gayatri George APRN Primary Care Provider [phone] Neva Velásquez RN Unavailable Albaro Kellogg MD Unavailable Aging, [facility] Unavailable Ralph Wilcox MD Unavailable [phone] Otilia Paulson OD Unavailable [phone] Roselia Abernathy MD Unavailable [phone] Gayatri George APRN Primary Care Provider Gayatri George APRN Unavailable [phone] Encounter Details Date Type Department Care Team (Late st Contact Info) Description 05/01/2019 Scanned Document [facility] Endocrinology [address] [phone] Qi Aponte PA [address] [place] [phone] Social History Tobacco Use Types Packs/Day Years [...] on filedocumented in this encounter Care Teams Detailer Relationship Specialty Start Date End Date Gayatri George APRN PCP - General Family Medicine 07/17/18 11/17/20 Gayatri George APRN PCP - General Family Medicine 11/25/20 01/20/21 Gayatri George APRN 30 [place] [address] PCP - United Medicare Attributed 03/02/19 06/01/19 Neva Velásquez, RN [address] [address] [facility] Community Petrol Tanker Driver 11/29/18 08/15/21 Albaro Kellogg MD [address] [place] [address] Physician Endocrinology 08/01/19 11/17/20 Aging, [facility] 02/04/20 Ralph Wilcox MD [address] [place] [address] Gastroenterology 11/25/20 Otilia Paulson OD [address] [place] [address] Consulting Provider Optometry 11/25/20 [place] [address] Obstetrics and Gynecology 11/25/20 documented as of this encounter
--- OUTSIDE RECORDS SUMMARY | 2024-12-04 16:11 | XMS_ITS | Encounter Summary ---
Author Organization [facility] Address [address] [place] [address] Care Team Providers Care Lime Boiler Name Role Phone Alison Aguirre APRN Primary Care Provider [phone] Gurjit Baum MD Primary Care Provider [phone] Alison Aguirre APRN Primary Care Provider [phone] Soila Pineda Unavailable [phone] Gayatri George APRN Primary Care Provider Neva Velásquez RN Unavailable Albaro Kellogg MD Unavailable Aging, [facility] Unavailable [phone] Ralph Wilcox MD Unavailable [phone] Otilia Paulson OD Unavailable [phone] Roselia Abernathy MD Unavailable [phone] Gayatri George APRN Primary Care Provider [phone] Gayatri George APRN Unavailable [phone] Encounter Details Date Type Department Care Team (Late st Contact Info) Description 09/12/2017 Scanned Document [address] [phone] Alison Aguirre APRN [address] [place] [address] Social History Tobacco Use Types Packs/Day Years [...] on filedocumented in this encounter Care Teams Lime Boiler Relationship Specialty Start Date End Date Alison Aguirre APRN PCP - General Internal Medicine 06/06/17 10/15/17 Gurjit Baum MD [address] [place] [address] PCP - General Internal Medicine 10/16/17 10/23/17 Alison Aguirre APRN PCP - General Internal Medicine 10/24/17 07/16/18 Gayatri George APRN [address] [place] [address] PCP - General Family Medicine 07/17/18 11/17/20 Gayatri George APRN [address] [place] [address] PCP - General Family Medicine 11/25/20 01/20/21 Gayatri George APRN [address] [place] [address] PCP - United Medicare Attributed 03/02/19 06/01/19 Soila Pineda, CLAY CASTER [address] [employer] [address] [address] [place] [address] ICP PCMH+ Soil Analyst 05/08/18 11/26/18 Neva Velásquez, RN [address] [employer] [address] [place] [address] [facility] Community One Piece Expansion Maker Hand 11/29/18 08/15/21 Albaro Kellogg MD [address] [place] [address] Physician Endocrinology 08/01/19 11/17/20 Aging, [facility] 02/04/20 Ralph Wilcox MD [address] [place] [address] Gastroenterology 11/25/20 Otilia Paulson OD [address] [place] [address] Consulting Provider Optometry 11/25/20 [place] [address] Obstetrics and Gynecology 11/25/20 documented as of this encounter
--- OUTSIDE RECORDS SUMMARY | 2024-12-04 16:11 | XMS_ITS | Encounter Summary ---
Author Organization [facility] Address [address] [place] [address] Care Team Providers Care Mail Courier Name Role Phone [facility], [facility] Unavailable [phone] Ralph Wilcox MD Unavailable [phone] Otilia Paulson OD Unavailable [phone] Roselia Abernathy MD Unavailable [phone] Encounter Details Date Type Department Care Team (Late st Contact Info) Description 09/26/2024 Telephone [facility] [address] [place] [phone] Garry Chung Social History Tobacco Use Types [...] on filedocumented in this encounter Care Teams Mail Courier Relationship Specialty Start Date End Date [facility], [facility] 02/04/20 Ralph Wilcox MD [address] [place] [address] Gastroenterology 11/25/20 Otilia Paulson OD [address] [place] [address] Consulting Provider Optometry 11/25/20 [place] [address] Obstetrics and Gynecology 11/25/20 documented as of this encounter
--- OUTSIDE RECORDS SUMMARY | 2024-12-04 16:11 | XMS_ITS | Encounter Summary ---
Author Organization [facility] Address [address] [place] [address] Care Team Providers Care Litigation Paralegal Name Role Phone Gurjit Baum MD Primary Care Provider [phone] Alison Aguirre APRN Primary Care Provider [phone] Soila Pineda DIRECTOR OF PERIOPERATIVE SERVICES Unavailable [phone] Gayatri George APRN Primary Care Provider + [phone] Neva Velásquez RN Unavailable Albaro Kellogg MD Unavailable Aging, [place] [facility] Unavailable [phone] Ralph Wilcox MD Unavailable [phone] Otilia Paulson OD Unavailable [phone] Roselia Abernathy MD Unavailable [phone] Gayatri George APRN Primary Care Provider + [phone] Gayatri George APRN Unavailable [phone] Encounter Details Date Type Department Care Team (Late st Contact Info) Description 10/19/2017 Scanned Document [facility] 40 [place] [address] Provider, Generic Social History Tobacco Use Types [...] on filedocumented in this encounter Care Teams Litigation Paralegal Relationship Specialty Start Date End Date Gurjit Baum MD [address] [place], [place] [phone] PCP - General Internal Medicine 10/16/17 10/23/17 Alison Aguirre APRN [address] [place] [address] PCP - General Internal Medicine 10/24/17 07/16/18 Gayatri George, CLINICAL MASSAGE THERAPIST [address] [address] PCP - General Family Medicine 07/17/18 11/17/20 Gayatri George, ANA [address] [address] PCP - General Family Medicine 11/25/20 01/20/21 Gayatri George, CLINICAL MASSAGE THERAPIST 30 [place] [address] PCP - United Medicare Attributed 03/02/19 06/01/19 Soila Pineda, DIRECTOR OF PERIOPERATIVE SERVICES [address] [place] [address] ICP PCMH+ Cash Management Clerk 05/08/18 11/26/18 Neva Velásquez, RN [address] [place] [address] ICP Community Rehab Consultant 11/29/18 08/15/21 Albaro Kellogg MD [address] [place] [address] Physician Endocrinology 08/01/19 11/17/20 Aging, [facility] 02/04/20 Ralph Wilcox MD [address] [place] [address], [place] [address] Gastroenterology 11/25/20 Otilia Paulson OD [address] [place] [address] Consulting Provider Optometry 11/25/20 [place] [address] Obstetrics and Gynecology 11/25/20 documented as of this encounter
--- OUTSIDE RECORDS SUMMARY | 2024-12-04 16:11 | XMS_ITS | Encounter Summary ---
Author Organization [facility] Address [address] [place] [address] Care Team Providers Care Furnace Utility Operator Name Role Phone Alison Aguirre APRN Primary Care Provider [phone] Gurjit Baum MD Primary Care Provider [phone] Alison Aguirre APRN Primary Care Provider [phone] Soila Pineda Unavailable [phone] Gayatri George APRN Primary Care Provider [phone] Neva Velásquez RN Unavailable Albaro Kellogg MD Unavailable Aging, [facility] Unavailable [phone] Ralph Wilcox MD Unavailable [phone] Otilia Paulson OD Unavailable [phone] Roselia Abernathy MD Unavailable [phone] Gayatri George APRN Primary Care Provider Gayatri George APRN Unavailable [phone] Encounter Details Date Type Department Care Team (Late st Contact Info) Description 08/07/2017 Scanned Document [address] [phone] Alison Aguirre APRN [address] [place] [address] Social History Tobacco Use Types Packs/Day Years [...] on filedocumented in this encounter Care Teams Furnace Utility Operator Relationship Specialty Start Date End Date Alison Aguirre APRN PCP - General Internal Medicine 06/06/17 10/15/17 Gurjit Baum MD [address] [place] [address] PCP - General Internal Medicine 10/16/17 10/23/17 Alison Aguirre APRN PCP - General Internal Medicine 10/24/17 07/16/18 Gayatri George APRN [address] [place] [address] PCP - General Family Medicine 07/17/18 11/17/20 Gayatri George APRN [address] [place] [address] PCP - General Family Medicine 11/25/20 01/20/21 Gayatri George APRN [address] [place] [address] PCP - United Medicare Attributed 03/02/19 06/01/19 Soila Pineda, SCRIPT SUPERVISOR [address] [place] [address] ICP PCMH+ X Ray Tech 05/08/18 11/26/18 Neva Velásquez, RN [address] [place] [address] [facility] Community Administrative Assistant Data Entry 11/29/18 08/15/21 Albaro Kellogg MD [address] [place] [address] Physician Endocrinology 08/01/19 11/17/20 Aging, [facility] 02/04/20 Ralph Wilcox MD [address] [place] [address] Gastroenterology 11/25/20 Otilia Paulson OD [address] [place] [address] Consulting Provider Optometry 11/25/20 [place] [address] Obstetrics and Gynecology 11/25/20 documented as of this encounter
--- OUTSIDE RECORDS SUMMARY | 2024-12-04 16:11 | XMS_ITS | Encounter Summary ---
Author Organization [facility] Address [address] [place] [address] Care Team Providers Care Commercial Pest Control Representative Name Role Phone Alison Aguirre APRN Primary Care Provider Soila Pineda Unavailable [phone] Gayatri George APRN Primary Care Provider Neva Velásquez RN Unavailable Albaro Kellogg MD Unavailable Aging, [place] [facility] Unavailable [phone] Ralph Wilcox MD Unavailable [phone] Otilia Paulson OD Unavailable [phone] Roselia Abernathy MD Unavailable [phone] Gayatri George APRN Primary Care Provider Gayatri George APRN Unavailable [phone] Encounter Details Date Type Department Care Team (Late st Contact Info) Description 02/27/2018 Scanned Document [facility] Podiatric Surgery [place] [address] [facility] [address] [place] [address] Jorge Quiñones, ROSHAN 201 [facility] [address] [place] [address] Social History Tobacco Use Types Packs/Day Years [...] on filedocumented in this encounter Care Teams Commercial Pest Control Representative Relationship Specialty Start Date End Date Alison Aguirre APRN PCP - General Internal Medicine 10/24/17 07/16/18 Gayatri George, ANA [address] [employer] [address] PCP - General Family Medicine 07/17/18 11/17/20 Gayatri George, RESEARCH AND DEVELOPMENT CHEMIST [address] [facility] [address] [id number] PCP - General Family Medicine 11/25/20 01/20/21 Gayatri George, RESEARCH AND DEVELOPMENT CHEMIST 30 [place] [address] PCP - United Medicare Attributed 03/02/19 06/01/19 Soila Pineda, TAP BUILDER [address] [facility] [address] 4 [place] [address] [facility]+ Stained Glass Artist 05/08/18 11/26/18 Neva Velásquez, RN [address] [place] [address] [facility] Community Social Media Community Manager 11/29/18 08/15/21 Albaro Kellogg MD [address] [place] [address] Physician Endocrinology 08/01/19 11/17/20 [facility], [facility] 02/04/20 Ralph Wilcox MD [address] [place] [address] Gastroenterology 11/25/20 Otilia Paulson OD [address] [place] [address] Consulting Provider Optometry 11/25/20 [place] [address] Obstetrics and Gynecology 11/25/20 documented as of this encounter
--- OUTSIDE RECORDS SUMMARY | 2024-12-04 16:11 | XMS_ITS | Encounter Summary ---
Author Organization [facility] Address [address] [place] [address] Care Team Providers Care Computer Sciences Professor Name Role Phone Gayatri George APRN Primary Care Provider [phone] Neva Velásquez RN Unavailable Albaro Kellogg MD Unavailable Aging, [facility] Unavailable [phone] Ralph Wilcox MD Unavailable [phone] Otilia Paulson OD Unavailable [phone] Roselia Abernathy MD Unavailable [phone] Gayatri George APRN Primary Care Provider Gayatri George APRN Unavailable [phone] Encounter Details Date Type Department Care Team (Late st Contact Info) Description 03/13/2019 Scanned Document [facility] Endocrinology [address] [phone] Qi Aponte PA [address] [place] [phone] Social History Tobacco Use Types Packs/Day Years [...] on filedocumented in this encounter Care Teams Computer Sciences Professor Relationship Specialty Start Date End Date Gayatri George APRN PCP - General Family Medicine 07/17/18 11/17/20 Gayatri George APRN PCP - General Family Medicine 11/25/20 01/20/21 Gayatri George APRN 30 [place] [address] PCP - United Medicare Attributed 03/02/19 06/01/19 Neva Velásquez, RN [address] [address] [facility] Community Security Trainer 11/29/18 08/15/21 Albaro Kellogg MD [address] [place] [address] Physician Endocrinology 08/01/19 11/17/20 Aging, [facility] 02/04/20 Ralph Wilcox MD [address] [place] [address] Gastroenterology 11/25/20 Otilia Paulson OD [address] [place] [address] Consulting Provider Optometry 11/25/20 [place] [address] Obstetrics and Gynecology 11/25/20 documented as of this encounter
--- OUTSIDE RECORDS SUMMARY | 2024-12-04 16:11 | XMS_ITS | Encounter Summary ---
Author Organization [facility] Address [address] [place] [address] Care Team Providers Care Flanging Roll Operator Name Role Phone Gayatri George APRN Primary Care Provider [phone] Neva Velásquez RN Unavailable Albaro Kellogg MD Unavailable Aging, [facility] Unavailable Ralph Wilcox MD Unavailable Otilia Paulson OD Unavailable [phone] Roselia Abernathy MD Unavailable Gayatri George VALVE SEATER OPERATOR Primary Care Provider [phone] Gayatri George APRN Unavailable [phone] Reason for Visit * Reason Comments Medication Refill Encounter Details Date Type Department Care Team (Late st Contact Info) Description 03/18/[address] [place] [phone] Gayatri George, VALVE SEATER OPERATOR [address] [place] [address] Moderate persistent asthma, unspecified whether complicated Social [...] complicated documented in this encounter Care Teams Flanging Roll Operator Relationship Specialty Start Date End Date Gayatri George APRN PCP - General Family Medicine 07/17/18 11/17/20 Gayatri George APRN PCP - General Family Medicine 11/25/20 01/20/21 Gayatri George APRN 30 [place] [address] PCP - United Medicare Attributed 03/02/19 06/01/19 Neva Velásquez, RN [address] [facility] 4 [place] [address] [facility] Community Box Blank Machine Operator Helper 11/29/18 08/15/21 Albaro Kellogg MD [address] [place] [address] Physician Endocrinology 08/01/19 11/17/20 Aging, [place] [facility] 02/04/20 Ralph Wilcox MD [address] [place] [address] Gastroenterology 11/25/20 Otilia Paulson OD [facility] [place] [address] Consulting Provider Optometry 11/25/20 [place] [address] Obstetrics and Gynecology 11/25/20 documented as of this encounter
--- OUTSIDE RECORDS SUMMARY | 2024-12-04 16:11 | XMS_ITS | Encounter Summary ---
Author Organization [facility] Address [address] [place] [address] Care Team Providers Care Interlocking And Signal Mechanic Name Role Phone Soila Pineda Unavailable [phone] Gayatri George APRN Primary Care Provider [phone] Neva Velásquez RN Unavailable Albaro Kellogg MD Unavailable Aging, [place] [facility] Unavailable [phone] Ralph Wilcox MD Unavailable [phone] Otilia Paulson OD Unavailable [phone] Roselia Abernathy MD Unavailable [phone] Gayatri George APRN Primary Care Provider Gayatri George APRN Unavailable [phone] Encounter Details Date Type Department Care Team (Late st Contact Info) Description 10/10/[address] [facility] [address] [place] [address] Pulmonary, Scan Social History Tobacco Use Types [...] on filedocumented in this encounter Care Teams Interlocking And Signal Mechanic Relationship Specialty Start Date End Date Gayatri George, ANA [address] [facility] 4 [place] [address] PCP - General Family Medicine 07/17/18 11/17/20 Gayatri George, WHEELCHAIR RENTAL CLERK [address] [address] PCP - General Family Medicine 11/25/20 01/20/21 Gayatri George, WHEELCHAIR RENTAL CLERK [address] [place] [address] PCP - United Medicare Attributed 03/02/19 06/01/19 Soila Pineda, LICENSING MANAGER [address] [facility] 4 [place] [address] ICP PCMH+ Testing Coordinator 05/08/18 11/26/18 Neva Velásquez, RN [address] [facility] 4 [place] [address] ICP Community Program Development Manager 11/29/18 08/15/21 Albaro Kellogg MD [address] [place] [address] Physician Endocrinology 08/01/19 11/17/20 [facility], [facility] 02/04/20 Ralph Wilcox MD [address] [place] [address] Gastroenterology 11/25/20 Otilia Paulson OD [address] [place] [address] Consulting Provider Optometry 11/25/20 [place] [address] Obstetrics and Gynecology 11/25/20 documented as of this encounter
--- OUTSIDE RECORDS SUMMARY | 2024-12-04 16:11 | XMS_ITS | Encounter Summary ---
Author Organization [facility] Address [address] [place] [address] Care Team Providers Care Charge Entry Clerk Name Role Phone Alison Aguirre APRN Primary Care Provider [phone] Gurjit Baum MD Primary Care Provider [phone] Alison Aguirre APRN Primary Care Provider +[phone] Soila Pineda Unavailable +[phone] Gayatri George APRN Primary Care Provider Neva Velásquez RN Unavailable Albaro Kellogg MD Unavailable Aging, [facility] Unavailable +[phone] Ralph Wilcox MD Unavailable [phone] Otilia Paulson OD Unavailable [phone] Roselia Abernathy MD Unavailable [phone] Gayatri George APRN Primary Care Provider [phone] Gayatri George APRN Unavailable [phone] Encounter Details Date Type Department Care Team (Late st Contact Info) Description 07/24/2017 Scanned Document [address] [address] Alison Aguirre APRN [address] [place] [address] Social History Tobacco Use Types Packs/Day Years [...] on filedocumented in this encounter Care Teams Charge Entry Clerk Relationship Specialty Start Date End Date Alison Aguirre APRN PCP - General Internal Medicine 06/06/17 10/15/17 Gurjit Baum MD [address] [place] [address] PCP - General Internal Medicine 10/16/17 10/23/17 Alison Aguirre APRN PCP - General Internal Medicine 10/24/17 07/16/18 Gayatri George APRN [address] [place] [address] PCP - General Family Medicine 07/17/18 11/17/20 Gayatri George APRN [address] 4 [place] [address] PCP - General Family Medicine 11/25/20 01/20/21 Gayatri George APRN [address] [place] [address] PCP - United Medicare Attributed 03/02/19 06/01/19 Soila Pineda, SCHOOL AGE PROGRAM TEACHER [address] [place] [address] ICP PCMH+ Instructor Extension Work 05/08/18 11/26/18 Neva Velásquez, RN [address] [place] [address] [facility] Community Md Ophthalmologist 11/29/18 08/15/21 Albaro Kellogg MD [address] [place] [address] Physician Endocrinology 08/01/19 11/17/20 Aging, [facility] 02/04/20 Ralph Wilcox MD [address] [place] [address] Gastroenterology 11/25/20 Otilia Paulson OD [address] [place] [address] Consulting Provider Optometry 11/25/20 [place] [address] Obstetrics and Gynecology 11/25/20 documented as of this encounter
--- OUTSIDE RECORDS SUMMARY | 2024-12-04 16:11 | XMS_ITS | Encounter Summary ---
Author Organization [facility] Address [address] [place] [address] Care Team Providers Care Operations Research Engineer Name Role Phone Alison Aguirre APRN Primary Care Provider [phone] Gurjit Baum MD Primary Care Provider [phone] Alison Aguirre APRN Primary Care Provider [phone] Soila Pineda Unavailable [phone] Gayatri George APRN Primary Care Provider Neva Velásquez RN Unavailable Albaro Kellogg MD Unavailable Aging, [place] For [facility] Unavailable +[phone] Ralph Wilcox MD Unavailable [phone] Otilia Paulson OD Unavailable [phone] Roselia Abernathy MD Unavailable [phone] Gayatri George APRN Primary Care Provider + [phone] Gayatri George APRN Unavailable [phone] Reason for Visit * Reason Comments Medication Refill Encounter Details Date Type Department Care Team (Late st Contact Info) Description 10/04/[address] [id number] Alison Aguirre APRN [address] [place] [address] Hypertension, unspecified type Social History Tobacco Use [...] type documented in this encounter Care Teams Operations Research Engineer Relationship Specialty Start Date End Date Alison Aguirre APRN PCP - General Internal Medicine 06/06/17 10/15/17 Gurjit Baum MD [address] [place] [address] PCP - General Internal Medicine 10/16/17 10/23/17 Alison Aguirre APRN PCP - General Internal Medicine 10/24/17 07/16/18 Gayatri George APRN [address] [address] PCP - General Family Medicine 07/17/18 11/17/20 Gayatri George APRN [address] [address] PCP - General Family Medicine 11/25/20 01/20/21 Gayatri George APRN 30 [place] [address] PCP - United Medicare Attributed 03/02/19 06/01/19 Soila Pineda, SLAT TWISTER [address] 4 [place] [address] ICP PCMH+ Cryogenics Repairer 05/08/18 11/26/18 Neva Velásquez, RN [address] [place] [address] ICP Community Weigher Production 11/29/18 08/15/21 Albaro Kellogg MD [address] [place] [address] Physician Endocrinology 08/01/19 11/17/20 Aging, [facility] 02/04/20 Ralph Wilcox MD [address] [place] [address] Gastroenterology 11/25/20 Otilia Paulson OD [address] [place] [address] Consulting Provider Optometry 11/25/20 [place] [address] Obstetrics and Gynecology 11/25/20 documented as of this encounter
--- OUTSIDE RECORDS SUMMARY | 2024-12-04 16:11 | XMS_ITS | Encounter Summary ---
Author Organization [facility] Address [address] [place] [address] Care Team Providers Care Cannon Crewmember Name Role Phone Alison Aguirre APRN Primary Care Provider Soila Pineda Unavailable [phone] Gayatri George APRN Primary Care Provider Neva Velásquez RN Unavailable Albaro Kellogg MD Unavailable Aging, [place] For [facility] Unavailable [phone] Ralph Wilcox MD Unavailable [phone] Otilia Paulson OD Unavailable [phone] Roselia Abernathy MD Unavailable Gayatri Geroge APRN Primary Care Provider Gayatri George APRN Unavailable [phone] Encounter Details Date Type Department Care Team (Late st Contact Info) Description 03/13/[address] [facility] Cancer [place] [facility]: Outpatient Infusion Center [address] [place] [address] Gurjit Baum MD [address] [address] Social History Tobacco Use Types Packs/Day Years [...] on filedocumented in this encounter Care Teams Cannon Crewmember Relationship Specialty Start Date End Date Alison Aguirre APRN PCP - General Internal Medicine 10/24/17 07/16/18 Gayatri George APRN [address] [place] [address] PCP - General Family Medicine 07/17/18 11/17/20 Gayatri George, MOLD MAINTENANCE TECHNICIAN [address] [address] PCP - General Family Medicine 11/25/20 01/20/21 Gayatri George, ANA 30 [place] [address] PCP - United Medicare Attributed 03/02/19 06/01/19 Soila Pineda MSW [address] 4 [place] [address] [facility]+ Geosciences Professor 05/08/18 11/26/18 Neva Velásquez, RN [address] [place] [address] [address] ICP Community Head Charrer 11/29/18 08/15/21 Albaro Kellogg MD [address] [place] [address] Physician Endocrinology 08/01/19 11/17/20 [facility], [facility] 02/04/20 Ralph Wilcox MD [address] [place] [address] Gastroenterology 11/25/20 Otilia Paulson OD [address] [place] [address] Consulting Provider Optometry 11/25/20 [place] [address] Obstetrics and Gynecology 11/25/20 documented as of this encounter
--- OUTSIDE RECORDS SUMMARY | 2024-12-04 16:11 | XMS_ITS | Encounter Summary ---
Author Organization [facility] Address [address] [place] [address] Care Team Providers Care Film Color Tester Name Role Phone Alison Aguirre APRN Primary Care Provider [phone] Gurjit Baum MD Primary Care Provider [phone] Alison Aguirre APRN Primary Care Provider [phone] Soila Pineda Unavailable [phone] Gayatri George APRN Primary Care Provider Neva Velásquez RN Unavailable Albaro Kellogg MD Unavailable Aging, [facility] Unavailable [phone] Ralph Wilcox MD Unavailable [phone] Otilia Paulson OD Unavailable [phone] Roselia Abernathy MD Unavailable [phone] Gayatri George APRN Primary Care Provider [phone] Gayatri George APRN Unavailable [phone] Encounter Details Date Type Department Care Team (Late st Contact Info) Description 08/16/2017 Scanned Document [address] [address] Alison Aguirre APRN [address] [place] [address] Social History Tobacco Use Types Packs/Day Years [...] on filedocumented in this encounter Care Teams Film Color Tester Relationship Specialty Start Date End Date Alison Aguirre APRN PCP - General Internal Medicine 06/06/17 10/15/17 Gurjit Baum MD [address] [place] [address] PCP - General Internal Medicine 10/16/17 10/23/17 Alison Aguirre APRN PCP - General Internal Medicine 10/24/17 07/16/18 Gayatri George APRN [address] [place] [address] PCP - General Family Medicine 07/17/18 11/17/20 Gayatri George APRN [address] [place] [address] PCP - General Family Medicine 11/25/20 01/20/21 Gayatri George APRN [address] [place] [address] PCP - United Medicare Attributed 03/02/19 06/01/19 Soila Pineda, REMOTE ENCODING CENTER MANAGER [address] [place] [address] ICP PCMH+ Adult Family Home Program Manager 05/08/18 11/26/18 Neva Velásquez, RN [address] [place] [address] [facility] Community Lawyer Criminal 11/29/18 08/15/21 Albaro Kellogg MD [address] [place] [address] Physician Endocrinology 08/01/19 11/17/20 Aging, [facility] 02/04/20 Ralph Wilcox MD [address] [place] [address] Gastroenterology 11/25/20 Otilia Paulson OD [address] [place] [address] Consulting Provider Optometry 11/25/20 [place] [address] Obstetrics and Gynecology 11/25/20 documented as of this encounter
--- OUTSIDE RECORDS SUMMARY | 2024-12-04 16:11 | XMS_ITS | Encounter Summary ---
Author Organization [facility] Address [address] [place] [address] Care Team Providers Care Comber Setter Name Role Phone Gurjit Baum MD Primary Care Provider [phone] Alison Aguirre APRN Primary Care Provider [phone] Soila Pineda MOLD SHAKER Unavailable [phone] Gayatri George APRN Primary Care Provider + [phone] Neva Velásquez RN Unavailable Albaro Kellogg MD Unavailable Aging, [place] For [facility] Unavailable [phone] Ralph Wilcox MD Unavailable [phone] Otilia Paulson OD Unavailable [phone] Roselia Abernathy MD Unavailable [phone] Gayatri George APRN Primary Care Provider + [phone] Gayatri George APRN Unavailable [phone] Encounter Details Date Type Department Care Team (Late st Contact Info) Description 10/16/2017 Scanned Document [address] [address] Gurjit Baum MD [address] [place] [address] Social History Tobacco Use Types Packs/Day Years [...] on filedocumented in this encounter Care Teams Comber Setter Relationship Specialty Start Date End Date Gurjit Baum MD [address] [place], [place] [address] PCP - General Internal Medicine 10/16/17 10/23/17 Alison Aguirre APRN [address] [place] [address] PCP - General Internal Medicine 10/24/17 07/16/18 Gayatri George, ANA [address] [address] PCP - General Family Medicine 07/17/18 11/17/20 Gayatri George, BEADER TENDER [address] 4 [place] [address] PCP - General Family Medicine 11/25/20 01/20/21 Gayatri George, ANA [address] [place] [address] PCP - United Medicare Attributed 03/02/19 06/01/19 Soila Pineda, MOLD SHAKER [address] [facility] 4 [place] [address] [facility] PCMH+ Beautician Apprentice 05/08/18 11/26/18 Neva Velásquez, RN [address] [place] [address] [facility] Community Rn Cvor 11/29/18 08/15/21 Albaro Kellogg MD [address] [place] [address] Physician Endocrinology 08/01/19 11/17/20 Aging, [facility] 02/04/20 Ralph Wilcox MD [address] [place] [address] Gastroenterology 11/25/20 Otilia Paulson, HERBIE [address] [place] [address] Consulting Provider Optometry 11/25/20 [place] [address] Obstetrics and Gynecology 11/25/20 documented as of this encounter
--- OUTSIDE RECORDS SUMMARY | 2024-12-04 16:11 | XMS_ITS | Encounter Summary ---
Author Organization [facility] Address [address] [place] [address] Care Team Providers Care Sewing Techniques Demonstrator Name Role Phone Gayatri George APRN Primary Care Provider [phone] Neva Velásquez RN Unavailable Albaro Kellogg MD Unavailable Aging, [facility] Unavailable Ralph Wilcox MD Unavailable Otilia Paulson OD Unavailable [phone] Roselia Abernathy MD Unavailable Gayatri George APRN Primary Care Provider [phone] Gayatri George APRN Unavailable [phone] Encounter Details Date Type Department Care Team (Late st Contact Info) Description 12/10/2018 Scanned Document [facility] [address] [place] [id number] Ralph Wilcox MD [address] [place] [address], [place] [address] Social History Tobacco Use Types Packs/Day Years [...] on filedocumented in this encounter Care Teams Sewing Techniques Demonstrator Relationship Specialty Start Date End Date Gayatri George, ANA PCP - General Family Medicine 07/17/18 11/17/20 Gayatri George, DRIVERS LICENSE EXAMINER PCP - General Family Medicine 11/25/20 01/20/21 Gayatri George, DRIVERS LICENSE EXAMINER 30 [place] [address] PCP - [place] Medicare Attributed 03/02/19 06/01/19 Neva Velásquez, RN [address] [facility] 4 [place] [address] ICP Community Citrus Fruit Packer 11/29/18 08/15/21 Albaro Kellogg MD [address] [place] [address] Physician Endocrinology 08/01/19 11/17/20 Aging, [facility] 02/04/20 Ralph Wilcox MD [address] [place] [address] Gastroenterology 11/25/20 Otilia Paulson OD [facility] [place] [address] Consulting Provider Optometry 11/25/20 Roselia Abernathy MD [facility] [place] [address] Obstetrics and Gynecology 11/25/20 documented as of this encounter
--- OUTSIDE RECORDS SUMMARY | 2024-12-04 16:11 | XMS_ITS | Encounter Summary ---
Author Organization [facility] Address [address] [place] [address] Care Team Providers Care Tree Cutter Name Role Phone Alison Aguirre APRN Primary Care Provider [phone] Gurjit Baum MD Primary Care Provider [phone] Alison Aguirre APRN Primary Care Provider [phone] Soila Pineda Unavailable +[phone] Gayatri George APRN Primary Care Provider Neva Velásquez RN Unavailable Albaro Kellogg MD Unavailable Aging, [facility] Unavailable [phone] Ralph Wilcox MD Unavailable [phone] Otilia Paulson OD Unavailable [phone] Roselia Abernathy MD Unavailable [phone] Gayatri George APRN Primary Care Provider [phone] Gayatri George APRN Unavailable [phone] Encounter Details Date Type Department Care Team (Late st Contact Info) Description 06/28/2017 Scanned Document [address] [address] Alison Aguirre APRN [address] [place] [address] Social History Tobacco Use Types Packs/Day Years [...] on filedocumented in this encounter Care Teams Tree Cutter Relationship Specialty Start Date End Date Alison Aguirre APRN PCP - General Internal Medicine 06/06/17 10/15/17 Gurjit Baum MD [address] [place] [address] PCP - General Internal Medicine 10/16/17 10/23/17 Alison Aguirre APRN PCP - General Internal Medicine 10/24/17 07/16/18 Gayatri George APRN [address] [place] [address] PCP - General Family Medicine 07/17/18 11/17/20 Gayatri George APRN [address] [place] [address] PCP - General Family Medicine 11/25/20 01/20/21 Gayatri George APRN [address] [place] [address] PCP - United Medicare Attributed 03/02/19 06/01/19 Soila Pineda, LEAD POURER [address] [place] [address] ICP PCMH+ Production Planner Scheduler 05/08/18 11/26/18 Neva Velásquez, RN [address] [place] [address] [facility] Community Chief Specialist [place] 11/29/18 08/15/21 Albaro Kellogg MD [address] [place] [address] Physician Endocrinology 08/01/19 11/17/20 Aging, [facility] 02/04/20 Ralph Wilcox MD [address] [place] [address] Gastroenterology 11/25/20 Otilia Paulson OD [address] [place] [address] Consulting Provider Optometry 11/25/20 [place] [address] Obstetrics and Gynecology 11/25/20 documented as of this encounter
--- OUTSIDE RECORDS SUMMARY | 2024-12-04 16:11 | XMS_ITS | Encounter Summary ---
Author Organization [facility] Address [address] [place] [address] Care Team Providers Care Manager Competitive Intelligence Name Role Phone Alison Aguirre APRN Primary Care Provider Soila Pineda Unavailable [phone] Gayatri George APRN Primary Care Provider [phone] Neva Velásquez RN Unavailable Albaro Kellogg MD Unavailable [facility] [place] [facility] Unavailable +[phone] Ralph Wilcox MD Unavailable [phone] Otilia Paulson OD Unavailable [phone] Roselia Abernathy MD Unavailable [phone] Gayatri George APRN Primary Care Provider Gayatri George APRN Unavailable [phone] Reason for Visit * Reason Comments Medication Refill Encounter Details Date Type Department Care Team (Late st Contact Info) Description 05/31/2018 Refill [facility] Heart & Vascular [place] [facility] - Cardiology [address] [place] [address] Brenda Tony MD [address] [place] [address], [place] [address] Medication Refill Social History Tobacco Use Types [...] hypertension documented in this encounter Care Teams Manager Competitive Intelligence Relationship Specialty Start Date End Date Alison Aguirre APRN PCP - General Internal Medicine 10/24/17 07/16/18 Gayatri George APRN [address] [address] PCP - General Family Medicine 07/17/18 11/17/20 Gayatri George APRN [address] [address] PCP - General Family Medicine 11/25/20 01/20/21 Gayatri George APRN 30 [place] [address] PCP - United Medicare Attributed 03/02/19 06/01/19 Soila Pineda, INVESTIGATIVE ASSISTANT [address] 4 [place] [address] ICP PCMH+ Garage Door Installer 05/08/18 11/26/18 Neva Velásquez, RN [address] 4 [place] [address] ICP Community Copywriting Intern 11/29/18 08/15/21 Albaro Kellogg MD [address] [place] [address] Physician Endocrinology 08/01/19 11/17/20 Aging, [place] [facility] 02/04/20 Ralph Wilcox MD [address] [place] [address] Gastroenterology 11/25/20 Otilia Paulson OD [address] [place] [address] Consulting Provider Optometry 11/25/20 [place] [address] Obstetrics and Gynecology 11/25/20 documented as of this encounter
--- OUTSIDE RECORDS SUMMARY | 2024-12-04 16:11 | XMS_ITS | Encounter Summary ---
Author Organization [facility] Address [address] [place] [address] Care Team Providers Care Graphic Editor Name Role Phone Alison Aguirre APRN Primary Care Provider [phone] Gurjit Baum MD Primary Care Provider [phone] Alison Aguirre APRN Primary Care Provider [phone] Soila Pineda Unavailable [phone] Gayatri George APRN Primary Care Provider Neva Velásquez RN Unavailable Albaro Kellogg MD Unavailable Aging, [facility] Unavailable +[phone] Ralph Wilcox MD Unavailable [phone] Otilia Paulson OD Unavailable [phone] Roselia Abernathy MD Unavailable [phone] Gayatri George APRN Primary Care Provider [phone] Gayatri George APRN Unavailable [phone] Encounter Details Date Type Department Care Team (Late st Contact Info) Description 07/21/2017 Scanned Document [address] [address] Alison Aguirre APRN [address] [place] [address] Social History Tobacco Use Types Packs/Day Years [...] on filedocumented in this encounter Care Teams Graphic Editor Relationship Specialty Start Date End Date Alison Aguirre APRN PCP - General Internal Medicine 06/06/17 10/15/17 Gurjit Baum MD [address] [place] [address] PCP - General Internal Medicine 10/16/17 10/23/17 Alison Aguirre APRN PCP - General Internal Medicine 10/24/17 07/16/18 Gayatri George APRN [address] [place] [address] PCP - General Family Medicine 07/17/18 11/17/20 Gayatri George APRN [address] [place] [address] PCP - General Family Medicine 11/25/20 01/20/21 Gayatri George APRN [address] [place] [address] PCP - United Medicare Attributed 03/02/19 06/01/19 Soila Pineda, MATH INSTRUCTOR [address] [place] [address] ICP PCMH+ Filters Assembler 05/08/18 11/26/18 Neva Velásquez, RN [address] [place] [address] [facility] Community Candy Polisher 11/29/18 08/15/21 Albaro Kellogg MD [address] [place] [address] Physician Endocrinology 08/01/19 11/17/20 Aging, [facility] 02/04/20 Ralph Wilcox MD [address] [place] [address] Gastroenterology 11/25/20 Otilia Paulson OD [address] [place] [address] Consulting Provider Optometry 11/25/20 [place] [address] Obstetrics and Gynecology 11/25/20 documented as of this encounter
--- OUTSIDE RECORDS SUMMARY | 2024-12-04 16:11 | XMS_ITS | Encounter Summary ---
Author Organization [facility] Address [address] [place] [address] Care Team Providers Care Bowl Topper Name Role Phone Alison Aguirre APRN Primary Care Provider [phone] Soila Pineda Unavailable [phone] Gayatri George APRN Primary Care Provider Neva Velásquez RN Unavailable Albaro Kellogg MD Unavailable Aging, [place] For [facility] Unavailable [phone] Ralph Wilcox MD Unavailable [phone] Otilia Paulson OD Unavailable [phone] Roselia Abernathy MD Unavailable [phone] Gayatri George APRN Primary Care Provider + [phone] Gayatri George APRN Unavailable [phone] Encounter Details Date Type Department Care Team (Late st Contact Info) Description 02/01/2018 Scanned Document [address] [place] [address] Provider, Generic Social History Tobacco [...] on filedocumented in this encounter Care Teams Bowl Topper Relationship Specialty Start Date End Date Alison Aguirre APRN PCP - General Internal Medicine 10/24/17 07/16/18 Gayatri George, ANA [address] [place] [address] PCP - General Family Medicine 07/17/18 11/17/20 Gayatri George, BAKER PAINT [address] [address] PCP - General Family Medicine 11/25/20 01/20/21 Gayatri George, BAKER PAINT [address] [place] [address] PCP - United Medicare Attributed 03/02/19 06/01/19 Soila Pineda, PRODUCTION MANAGER [address] [place] [address] [facility] PCM+ Highway Patrol Commander 05/08/18 11/26/18 Neva Velásquez, JAMAR [address] [place] [address] [facility] Community Process Mold Technician 11/29/18 08/15/21 Albaro Kellogg MD [address] [place] [address] Physician Endocrinology 08/01/19 11/17/20 Aging, [facility] 02/04/20 Ralph Wilcox MD [address] [address] Gastroenterology 11/25/20 Otilia Paulson OD [facility] [place] [address] Consulting Provider Optometry 11/25/20 [place] [address] Obstetrics and Gynecology 11/25/20 documented as of this encounter
--- OUTSIDE RECORDS SUMMARY | 2024-12-04 16:11 | XMS_ITS | Encounter Summary ---
Author Organization [facility] Address [address] [place] [address] Care Team Providers Care Manager Managed Care Name Role Phone Gayatri George APRN Primary Care Provider [phone] Neva Velásquez RN Unavailable Albaro Kellogg MD Unavailable Aging, [facility] Unavailable [phone] Ralph Wilcox MD Unavailable Otilia Paulson OD Unavailable [phone] Roselia Abernathy MD Unavailable [phone] Gayatri George PRINTING PRESS OPERATOR APPRENTICE Primary Care Provider Gayatri George APRN Unavailable [phone] Reason for Visit * Reason Comments Medication Refill Encounter Details Date Type Department Care Team (Late st Contact Info) Description 03/23/[address] [place] [phone] Gayatri George, PRINTING PRESS OPERATOR APPRENTICE [address] [place] [address] Depression, unspecified depression type (Primary Dx) Social [...] Primary documented in this encounter Care Teams Manager Managed Care Relationship Specialty Start Date End Date Gayatri George APRN PCP - General Family Medicine 07/17/18 11/17/20 Gayatri George APRN PCP - General Family Medicine 11/25/20 01/20/21 Gayatri George APRN 30 [place] [address] PCP - United Medicare Attributed 03/02/19 06/01/19 Neva Velásquez, RN [address] [address] [facility] Community Armor Senior Sergeant 11/29/18 08/15/21 Albaro Kellogg MD [address] [place] [address] Physician Endocrinology 08/01/19 11/17/20 Aging, [place] For [facility] 02/04/20 Ralph Wilcox MD [address] [place] [address] Gastroenterology 11/25/20 Otilia Paulson OD [address] [place] [address] Consulting Provider Optometry 11/25/20 [place] [address] Obstetrics and Gynecology 11/25/20 documented as of this encounter
--- OUTSIDE RECORDS SUMMARY | 2024-12-04 16:11 | XMS_ITS | Encounter Summary ---
Author Organization [facility] Address [address] [place] [address] Care Team Providers Care Cafeteria Supervisor Name Role Phone [facility], [place] [facility] Unavailable [phone] Ralph Wilcox MD Unavailable [phone] Otilia Paulson OD Unavailable Roselia Abernathy MD Unavailable [phone] Encounter Details Date Type Department Care Team (Late st Contact Info) Description 08/21/2024 Telephone [facility] [address] [place] [phone] Garry Chung Social History Tobacco Use Types [...] on filedocumented in this encounter Care Teams Cafeteria Supervisor Relationship Specialty Start Date End Date [facility] 02/04/20 Ralph Wilcox MD [address] [place] [address] Gastroenterology 11/25/20 Otilia Paulson OD [address] [place] [address] Consulting Provider Optometry 11/25/20 [place] [address] Obstetrics and Gynecology 11/25/20 documented as of this encounter
--- OUTSIDE RECORDS SUMMARY | 2024-12-04 16:11 | XMS_ITS | Encounter Summary ---
Author Organization [facility] Address [address] [place] [address] Care Team Providers Care Teacher Of The Deaf Name Role Phone Alison Aguirre APRN Primary Care Provider [phone] Gurjit Baum MD Primary Care Provider [phone] Alison Aguirre APRN Primary Care Provider [phone] Soila Pineda Unavailable [phone] Gayatri George APRN Primary Care Provider Neva Velásquez RN Unavailable Albaro Kellogg MD Unavailable Aging, [place] For [facility] Unavailable [phone] Ralph Wilcox MD Unavailable [phone] Otilia Paulson OD Unavailable [phone] Roselia Abernathy MD Unavailable [phone] Gayatri George APRN Primary Care Provider + [phone] Gayatri George APRN Unavailable [phone] Reason for Visit * Reason Comments Medication Refill Encounter Details Date Type Department Care Team (Late st Contact Info) Description 07/15/[address] [phone] Alison Aguirre APRN [address] [place] [address] Hypertension, unspecified type Social History Tobacco Use [...] type documented in this encounter Care Teams Teacher Of The Deaf Relationship Specialty Start Date End Date Alison Aguirre APRN PCP - General Internal Medicine 06/06/17 10/15/17 Gurjit Baum MD [address] [place] [address] PCP - General Internal Medicine 10/16/17 10/23/17 Alison Aguirre APRN PCP - General Internal Medicine 10/24/17 07/16/18 Gayatri George APRN [address] [address] PCP - General Family Medicine 07/17/18 11/17/20 Gayatri George APRN [address] [place], [place] [id number] PCP - General Family Medicine 11/25/20 01/20/21 Gayatri George APRN 30 [place] [address] PCP - United Medicare Attributed 03/02/19 06/01/19 Soila Pineda, BUSINESS PERFORMANCE ADVISOR [address] [place] [address] [facility] PCMH+ Optical Engineering Technician 05/08/18 11/26/18 Neva Velásquez, RN [address] [place] [address] [facility] Community Tool Liaison 11/29/18 08/15/21 Albaro Kellogg MD [address] [place] [address] Physician Endocrinology 08/01/19 11/17/20 Aging, [facility] 02/04/20 Ralph Wilcox MD [address] [place] [address] Gastroenterology 11/25/20 Otilia Paulson OD [address] [place] [address] Consulting Provider Optometry 11/25/20 [place] [address] Obstetrics and Gynecology 11/25/20 documented as of this encounter
--- OUTSIDE RECORDS SUMMARY | 2024-12-04 16:11 | XMS_ITS | Encounter Summary ---
Author Organization [facility] Address [address] [place] [address] Care Team Providers Care Clinical Trial Data Manager Name Role Phone Alison Aguirre APRN Primary Care Provider [phone] Gurjit Baum MD Primary Care Provider [phone] Alison Aguirre APRN Primary Care Provider [phone] Soila Pineda Unavailable [phone] Gayatri George APRN Primary Care Provider Neva Velásquez RN Unavailable Albaro Kellogg MD Unavailable Aging, [facility] Unavailable [phone] Ralph Wilcox MD Unavailable [phone] Otilia Paulson OD Unavailable [phone] Roselia Abernathy MD Unavailable [phone] Gayatri George APRN Primary Care Provider [phone] Gayatri George APRN Unavailable [phone] Encounter Details Date Type Department Care Team (Late st Contact Info) Description 10/10/2017 Telephone [facility] [address] [place] [phone] Juan Migule Pollard MD [address] [place] [address] Social History Tobacco Use Types Packs/Day Years [...] on filedocumented in this encounter Care Teams Clinical Trial Data Manager Relationship Specialty Start Date End Date Alison Aguirre APRN PCP - General Internal Medicine 06/06/17 10/15/17 Gurjit aBum MD [address] [place] [address] PCP - General Internal Medicine 10/16/17 10/23/17 Alison Aguirre APRN PCP - General Internal Medicine 10/24/17 07/16/18 Gayatri George APRN [address] [place] [address] PCP - General Family Medicine 07/17/18 11/17/20 Gayatri George APRN [address] [place] [address] PCP - General Family Medicine 11/25/20 01/20/21 Gayatri George APRN [address] [place] [address] PCP - United Medicare Attributed 03/02/19 06/01/19 Soila Pineda, CASHIER SELF SERVICE GASOLINE [address] [place] [address] [facility] PCMH+ Veneer Production Machine Operator 05/08/18 11/26/18 Neva Velásquez, RN [address] [place] [address] [facility] Community Infantryman 11/29/18 08/15/21 Albaro Kellogg MD [address] [place] [address] Physician Endocrinology 08/01/19 11/17/20 Aging, [facility] 02/04/20 Ralph Wilcox MD [address] [place] [address] Gastroenterology 11/25/20 Otilia Paulson OD [address] [place] [address] Consulting Provider Optometry 11/25/20 [place] [address] Obstetrics and Gynecology 11/25/20 documented as of this encounter
--- OUTSIDE RECORDS SUMMARY | 2024-12-04 16:11 | XMS_ITS | Encounter Summary ---
Author Organization [facility] Address [address] [place] [address] Care Team Providers Care Carton Catcher Name Role Phone Gayatri George APRN Primary Care Provider [phone] Neva Velásquez RN Unavailable Albaro Kellogg MD Unavailable Aging, [facility] Unavailable [phone] Ralph Wilcox MD Unavailable Otilia Paulson OD Unavailable [phone] Roselia Abernathy MD Unavailable Gayatri George APRN Primary Care Provider [phone] Gayatri George APRN Unavailable [phone] Encounter Details Date Type Department Care Team (Late st Contact Info) Description 02/14/2019 Scanned Document [facility] [address] [place] [phone] Ralph Wilcox MD [address] [place] [address], [place] [address] Social History Tobacco Use Types Packs/Day Years [...] on filedocumented in this encounter Care Teams Carton Catcher Relationship Specialty Start Date End Date Gayatri George, ANA PCP - General Family Medicine 07/17/18 11/17/20 Gayatri George, MULTIMEDIA TECHNICIAN PCP - General Family Medicine 11/25/20 01/20/21 Gayatri George, MULTIMEDIA TECHNICIAN [address] [place] [address] PCP - United Medicare Attributed 03/02/19 06/01/19 Neva Velásquez, JAMAR [address] [facility] 4 [place] [address] [facility] Community Wetlands Technician 11/29/18 08/15/21 Albaro Kellogg MD [address] [place] [address] Physician Endocrinology 08/01/19 11/17/20 Aging, [place] For [facility] 02/04/20 Ralph Wilcox MD [address] [place] [address] Gastroenterology 11/25/20 Otilia Paulson OD [address] [place] [address] Consulting Provider Optometry 11/25/20 [place] [address] Obstetrics and Gynecology 11/25/20 documented as of this encounter
--- OUTSIDE RECORDS SUMMARY | 2024-12-04 16:13 | XMS_ITS | Encounter Summary ---
Author Organization [facility] Address [address] [place] [address] Care Team Providers Care Gear Tester Name Role Phone Alison Aguirre APRN Primary Care Provider Soila Pineda MAKEUP INSTRUCTOR Unavailable [phone] Gayatri George APRN Primary Care Provider Neva Velásquez RN Unavailable Albaro Kellogg MD Unavailable Aging, [place] For [facility] Unavailable [phone] Ralph Wilcox MD Unavailable [phone] Otilia Paulson OD Unavailable [phone] Roselia Abernathy MD Unavailable Gayatri George APRN Primary Care Provider Gayatri George APRN Unavailable [phone] Encounter Details Date Type Department Care Team (Late st Contact Info) Description 11/01/2017 Scanned Document [address] [place] [address] [phone] Alison Aguirre APRN [address] [place] [address] Social History Tobacco Use Types Packs/Day Years [...] on filedocumented in this encounter Care Teams Gear Tester Relationship Specialty Start Date End Date Alison Aguirre APRN PCP - General Internal Medicine 10/24/17 07/16/18 Gayatri George, ANA [address] [address] PCP - General Family Medicine 07/17/18 11/17/20 Gayatri George, MARINE HABITAT RESOURCE SPECIALIST [address] [phone] PCP - General Family Medicine 11/25/20 01/20/21 Gayatri George, MARINE HABITAT RESOURCE SPECIALIST [address] [place] [address] PCP - United Medicare Attributed 03/02/19 06/01/19 Soila Pineda MSW [address] [place] [address] [address] [facility]+ Registered Private Duty Nurse 05/08/18 11/26/18 Neva Velásquez, RN [address] [address] [facility] Community Factory Engineer 11/29/18 08/15/21 Albaro Kellogg MD [address] [place] [address] Physician Endocrinology 08/01/19 11/17/20 [facility], [facility] 02/04/20 Ralph Wilcox MD [address] [place] [address] Gastroenterology 11/25/20 Otilia Paulson OD [address] [place] [address] Consulting Provider Optometry 11/25/20 [place] [address] Obstetrics and Gynecology 11/25/20 documented as of this encounter
--- OUTSIDE RECORDS SUMMARY | 2024-12-04 16:13 | XMS_ITS | Encounter Summary ---
Author Organization [facility] Address [address] [place] [address] Care Team Providers Care Child Advocate Name Role Phone Gayatri George APRN Primary Care Provider Neva Velásquez RN Unavailable Albaro Kellogg MD Unavailable Aging, [place] For [facility] Unavailable [phone] Ralph Wilcox MD Unavailable [phone] Otilia Paulson OD Unavailable [phone] Roselia Abernathy MD Unavailable [phone] Gayatri George APRN Primary Care Provider + [phone] Gayatri George APRN Unavailable [phone] Encounter Details Date Type Department Care Team (Late st Contact Info) Description 12/19/2018 Scanned Document [facility] OPTH[facility] Social History Tobacco [...] on filedocumented in this encounter Care Teams Child Advocate Relationship Specialty Start Date End Date Gayatri George APRN PCP - General Family Medicine 07/17/18 11/17/20 Gayatri George APRN PCP - General Family Medicine 11/25/20 01/20/21 Gayatri George APRN 30 [place] [address] PCP - United Medicare Attributed 03/02/19 06/01/19 Neva Velásquez, JAMAR [address] [facility] 4 [place] [address] [facility] Community Sanding Machine Operator 11/29/18 08/15/21 Albaro Kellogg MD [address] [place] [address] Physician Endocrinology 08/01/19 11/17/20 Aging, [facility] 02/04/20 Ralph Wilcox MD [address] [place] [address] Gastroenterology 11/25/20 Otilia Paulson OD [address] [place] [address] Consulting Provider Optometry 11/25/20 [place] [address] Obstetrics and Gynecology 11/25/20 documented as of this encounter
--- OUTSIDE RECORDS SUMMARY | 2024-12-04 16:13 | XMS_ITS | Encounter Summary ---
Author Organization [facility] Address [address] [place] [address] Care Team Providers Care Game Warden Name Role Phone Alison Aguirre APRN Primary Care Provider Soila Pineda INFORMATICS PHYSICIAN LIAISON Unavailable [phone] Gayatri George APRN Primary Care Provider Neva Velásquez RN Unavailable Albaro Kellogg MD Unavailable Aging, [place] For [facility] Unavailable [phone] Ralph Wilcox MD Unavailable [phone] Otilia Paulson OD Unavailable [phone] Roselia Abernathy MD Unavailable [phone] Gayatri George APRN Primary Care Provider Gayatri George APRN Unavailable [phone] Encounter Details Date Type Department Care Team (Late st Contact Info) Description 06/13/2018 Scanned Document [address] [phone] Alison Aguirre APRN [address] [place] [address] Social History Tobacco Use Types Packs/Day Years [...] on filedocumented in this encounter Care Teams Game Warden Relationship Specialty Start Date End Date Alison Aguirre APRN PCP - General Internal Medicine 10/24/17 07/16/18 Gayatri George, ANA [address] [place] [address] PCP - General Family Medicine 07/17/18 11/17/20 Gayatri George, FIXED WING PILOT [address] [phone] PCP - General Family Medicine 11/25/20 01/20/21 Gayatri George, FIXED WING PILOT 30 [place] [address] PCP - United Medicare Attributed 03/02/19 06/01/19 Soila Pineda MSW [address] [place] [address] [facility]+ Morning Nanny 05/08/18 11/26/18 Neva Velásquez, RN [address] [address] [facility] Community Direct Mail Marketer 11/29/18 08/15/21 Albaro Kellogg MD [address] [place] [address] Physician Endocrinology 08/01/19 11/17/20 [facility], [facility] 02/04/20 Ralph Wilcox MD [address] [place] [address] Gastroenterology 11/25/20 Otilia Paulson OD [address] [place] [address] Consulting Provider Optometry 11/25/20 [place] [address] Obstetrics and Gynecology 11/25/20 documented as of this encounter
--- OUTSIDE RECORDS SUMMARY | 2024-12-04 16:13 | XMS_ITS | Encounter Summary ---
Author Organization [facility] Address [address] [facility] [address] [place] [address] Phone Care Team Providers Care Route Specialist Name Role Phone Tommie Suarez MD Primary Care Provider Encounter Details Date Type Department Care Team (Late st Contact Info) Description 01/27/2021 Orders Only [facility] [address] [place] [phone] Leann Molina RN Social History Tobacco Use [...] on filedocumented in this encounter Care Teams Route Specialist Relationship Specialty Start Date End Date Tommie Suarez MD [address] [facility] [address] [place] [address] PCP - General 10/12/20 documented as of this encounter
--- OUTSIDE RECORDS SUMMARY | 2024-12-04 16:13 | XMS_ITS | Continuity of Care Document ---
Author Organization [facility] Address [address] [facility] [address] [place] [address] Phone [phone] Care Team Providers Care Environmental Science Technician Name Role Phone Tommie Suarez MD Care Team Information Payroll And Benefits Assistant [phone] Problems Active Problems Provider Date Type 2 [...] SIG Qnty Indications Order ing Provider Date Nomfrvait06fd Tablets Take One Tablet By Mouth Every Morning ^1R1 90tabs Leann Staton M.D. 11/15/2024 Onetouch VerioStrips Use One Strip To Check Glucose 3 To 4 Times Daily (Bulk) 200units E11.22 Leann Staton M.D. 12/29/2023 Freestyle Jazmine 2/Murchison/Flash Glucose Monitoring Ithlca4Xbwady Device use as directed with sensors dx: e11.22 1units E11.22 Leann Staton M.D. 11/23/2023 Freestyle Jazmine 2/Sensor/Flash Glucose Monitoring Svakwj4Ohydqu [facility] Use 1 Sensor Every 14 Days as Directed (Bulk) 3units E11.22 Leann Staton M.D. 11/23/2023 Lantus Fjciqkrv664Eeky/ML Solution Pen-Inject Lazaro Suarez MD Montelukast Nbkgih65kb Tablets 1 by mouth every day 30tabs Tommie Suarez MD Trulicity4.5mg/0.5ML Solution Pen-Inject inject 4.5mg into skin every week 6ml Tommie Suarez MD Vitamin D (Ergocalciferol)1.25m g (93251 Ut) Capsules Tommie Suarez MD Atorvastatin Ihlveqs18kn Tablets 1 by mouth every day 90tabs Tommie Suarez MD Aspirin Low Cofc40mt Tablets DR 1 by mouth every day Tommie Suarez MD Albuterol Sulfate ECY945(90Base) mcg/Act Aerosol Tommie Suarez MD Dvyawrhgny998xj Capsules 1 capsule by twice daily 180caps Tommie Suarez MD Tswvtiafmk9od Tablets 1 tab by mouth twice a day Tommie Suarez MD Pantoprazole Xfbmoa91za Tablets DR 1 by mouth every day 90tabs Tommie Suarez MD Novolog Txmounj301Vyvn/ML Solution Pen-Inject Lazaro Suarez MD Vital Signs Date Vital Result Comment 11/15/2024 3:07pm BP Systolic 130 mmHg BP Diastolic 88 mmHg Heart Rate 87 /min Height 66 inches 5'6 Weight 186.25 lb BMI (Body Mass Index) 30.1 kg/m2 Results Test Acquired Date Facility Test Result H/L Range N ote Laboratory test finding 11/15/2024 Inhouse Glucose Fingerstick 203 Hemoglobin A1c 8.0% Laboratory test finding 08/01/2024 Inhouse Glucose Fingerstick 150 Hemoglobin A1c 7.6% Laboratory test finding 05/01/2024 Inhouse Glucose Fingerstick 257 Laboratory test finding 12/29/2023 Inhouse Glucose Fingerstick 74 Hemoglobin A1c 6.7% Laboratory test finding 11/23/2023 Inhouse Glucose Fingerstick 190 Procedures Date Code Description Status 11/15/2024 52763 Glucose Monitoring Interpeta tion And Report Completed 08/01/2024 99951 Glucose Monitoring Interpeta tion And Report Completed Medical Devices Description No Information Available Encounters Type Date Location Provider Dx Diagnosis Office Visit 11/15/2024 2:45p Main Office [facility]ins 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 E11.42 Type 2 diabetes mila itus with diabetic polyneuropathy Z79.4 penitentiary (current) use of insulin D63.1 Anemia in chronic ki dney disease Assessments Date Code Description Provider 11/15/2024 E11.22 Type 2 diabetes mellitus with diabetic chronic kidney disease ELENO Robins 11/15/2024 E11.42 Type 2 diabetes mellitus with diabetic polyneuropathy EL[facility] Robins 11/15/2024 Z79.4 penitentiary (current) use of i nsulin ELENO Robins 11/15/2024 D63.1 Anemia in chronic kidney dis ease ELENO Robins Plan of Treatment Future Appointment(s):* 02/13/2025 2:15 pm - ELENO Robins at Main Office 11/15/2024 - [facility] Robins* E11.22 Type 2 diabetes mellitus with diabetic chronic kidney disease * E11.42 Type 2 diabetes mellitus with diabetic polyneuropathy * Z79.4 extermination inspector (current) use of insulin * D63.1 Anemia in chronic kidney disease * Functional Status Description No Information Available Mental Status Description No Information Available Referrals Description No Information Available
--- OUTSIDE RECORDS SUMMARY | 2024-12-04 16:13 | XMS_ITS | Encounter Summary ---
Author Organization [facility] Address [address] [place] [address] Care Team Providers Care Chief Operating Engineer Name Role Phone Alison Aguirre APRN Primary Care Provider [phone] Soila Pineda Unavailable [phone] Gayatri George APRN Primary Care Provider [phone] Neva Velásquez RN Unavailable Albaro Kellogg MD Unavailable Aging, [place] For [facility] Unavailable [phone] Ralph Wilcox MD Unavailable [phone] Otilia Paulson OD Unavailable [phone] Roselia Abernathy MD Unavailable [phone] Gayatri George APRN Primary Care Provider [phone] Gayatri George APRN Unavailable [phone] Encounter Details Date Type Department Care Team (Late st Contact Info) Description 11/07/2017 Scanned Document [facility] 80 [facility] [address] [place] [address] Provider, Generic Social History Tobacco [...] on filedocumented in this encounter Care Teams Chief Operating Engineer Relationship Specialty Start Date End Date Alison Aguirre APRN PCP - General Internal Medicine 10/24/17 07/16/18 Gayatri George, LIQUOR RECTIFIER [address] [place] [address] PCP - General Family Medicine 07/17/18 11/17/20 Gayatri George, LIQUOR RECTIFIER [address] [address] PCP - General Family Medicine 11/25/20 01/20/21 Gayatri George, LIQUOR RECTIFIER [address] [place] [address] PCP - United Medicare Attributed 03/02/19 06/01/19 Soila Pineda, LAB SUPPORT TECH [address] [place] [address] [facility] PCM+ Tacking Machine Operator 05/08/18 11/26/18 Neva Velásquez, RN [address] [place] [address] [facility] Community Atmospheric Drier Tender 11/29/18 08/15/21 Albaro Kellogg MD [address] [address] Physician Endocrinology 08/01/19 11/17/20 Aging, [facility] 02/04/20 Ralph Wilcox MD [address] [address] Gastroenterology 11/25/20 Otilia Paulson OD [address] [place] [address] Consulting Provider Optometry 11/25/20 [place] [address] Obstetrics and Gynecology 11/25/20 documented as of this encounter
--- OUTSIDE RECORDS SUMMARY | 2024-12-04 16:13 | XMS_ITS | Clinical Summary ---
Author Organization [facility] Address [address] [place] [address] Care Team Providers Care Processing Technologist Name Role Phone Tommie Suarez MD Primary Care Provider Surgical History Surgery Date Site/Laterality Comments BYPASS GRAFT PROCEDURE: ND AMPUTATION TOE METATARSOPHALANGEAL JOINT; COMMENT: x3 OTHER SURGICAL HISTORY PROCEDURE: ---- OTHER ----; COMMENT: Reduction mammoplasty OTHER SURGICAL HISTORY PROCEDURE: ---- OTHER ----; COMMENT: Abdominoplasty Medical History Medical History Date Comments Asthma DX:Asthma Diastolic CHF (CMS/HCC) DX:Diast olic CHF ([facility]) HTN (hypertension) DX:HTN (hyper tension) HLD (hyperlipidemia) DX:HLD (hyp erlipidemia) Diabetes mellitus (CMS/HCC) DX:D iabetes mellitus (HCC) Diabetic neuropathy (CMS/HCC) DX :Diabetic neuropathy (HCC) CKD (chronic kidney disease) , stage IV (CMS/HCC) DX:CKD (chronic kidney disea se), stage IV ([facility]); COMMENT: baseline creatinine 2.4 History of CVA [...] (CMS/HCC) DX:T2DM (type 2 diabetes rena litus) ([facility]) Acute kidney injury superimp osed on chronic kidney disease (CMS/HCC) DX:Acute kidney injur y superimposed on chronic kidney disease (HCC) JOHN (obstructive sleep apnea) DX :JOHN (obstructive sleep apnea) DVT prophylaxis DX:DVT prophylax is Severe anemia DX:Severe anemia COPD (chronic obstructive pu lmonary disease) ([facility]) DX:COPD (chronic obstructive pulmonary disease) ([facility]); COMMENT: not oxygen dependent Family History Medical History Relation Name Comments Diabetes Mother Heart failure Mother of [place] in her 70s Hypertension Mother Relation Name [...] Documents on File Type Date Recorded Patient Jewelry Sales Representative Expl anation Health Care Decision (hx) 01/16/2022 [...] (hx) 07/24/2021 AD OLIVIER DIRECTIVE Care Teams Processing Technologist Relationship Specialty Start Date End Date Tommie Suarez MD [address] [place] [address] [place] PCP - General 11/09/20
--- OUTSIDE RECORDS SUMMARY | 2024-12-04 16:13 | XMS_ITS | Encounter Summary ---
Author Organization [facility] Address [address] [place] [address] Care Team Providers Care Rectifying Operator Name Role Phone Alison Aguirre APRN Primary Care Provider Soila Pineda PLASTER PATTERNMAKER Unavailable [phone] Gayatri George APRN Primary Care Provider Neva Velásquez RN Unavailable Albaro Kellogg MD Unavailable Aging, [place] For [facility] Unavailable [phone] Ralph Wilcox MD Unavailable [phone] Otilia Paulson OD Unavailable [phone] Roselia Abernathy MD Unavailable [phone] Gayatri George APRN Primary Care Provider Gayatri George APRN Unavailable [phone] Encounter Details Date Type Department Care Team (Late st Contact Info) Description 10/31/2017 Scanned Document [address] [phone] Alison Aguirre APRN [address] [place] [address] Social History Tobacco Use Types Packs/Day Years [...] on filedocumented in this encounter Care Teams Rectifying Operator Relationship Specialty Start Date End Date Alison Aguirre APRN PCP - General Internal Medicine 10/24/17 07/16/18 Gayatri George, ANA [address] [employer] [place] [address] PCP - General Family Medicine 07/17/18 11/17/20 Gayatri George, UNIX SYSTEM ADMINISTRATOR [address] [employer] [address] [id number] PCP - General Family Medicine 11/25/20 01/20/21 Gayatri George, UNIX SYSTEM ADMINISTRATOR [address] [place] [address] PCP - United Medicare Attributed 03/02/19 06/01/19 Soila Pineda MSW [address] [employer] [address] [place] [address] [facility]+ Director Internal Communications 05/08/18 11/26/18 Neva Velásquez, RN [address] [employer] [address] [address] [facility] Community Certified Flex Endoscope Reprocessor 11/29/18 08/15/21 Albaro Kellogg MD [address] [place] [address] Physician Endocrinology 08/01/19 11/17/20 [facility] 02/04/20 Ralph Wilcox MD [address] [place] [address] Gastroenterology 11/25/20 Otilia Paulson OD [address] [place] [address] Consulting Provider Optometry 11/25/20 [place] [address] Obstetrics and Gynecology 11/25/20 documented as of this encounter
--- OUTSIDE RECORDS SUMMARY | 2024-12-04 16:13 | XMS_ITS | Encounter Summary ---
Author Organization [facility] Address [address] [place] [address] Care Team Providers Care Wood Patternmaker Name Role Phone [facility], [place] For [facility] Unavailable [phone] Ralph Wilcox MD Unavailable [phone] Otilia Paulson OD Unavailable [phone] Roselia Abernathy MD Unavailable [phone] Encounter Details Date Type Department Care Team (Late st Contact Info) Description 11/05/[address] [facility] [address] [place] [phone] Garry Chung Social History Tobacco Use Types [...] on filedocumented in this encounter Care Teams Wood Patternmaker Relationship Specialty Start Date End Date [facility], [facility] 02/04/20 Ralph Wilcox MD [address] [place] [address] Gastroenterology 11/25/20 Otilia Paulson OD [address] [place] [address] Consulting Provider Optometry 11/25/20 [place] [address] Obstetrics and Gynecology 11/25/20 documented as of this encounter
--- OUTSIDE RECORDS SUMMARY | 2024-12-04 16:13 | XMS_ITS | Data Portability ---
Author Organization [employer] [email or web address] Address [address] [place] [address] Care Team Providers Care Director Quality Assurance Name Role Phone HIM CCA OTHER Assessment [...] Assessment and Plan as documented by the Wireless Communications Engineer. I provided real-time medical direction via phone [...] Assessment and Plan as documented by the Wireless Communications Engineer. Patient given the opportunity to ask questions. [...] chest pain or shortness of breath. Per strip cutting machine operator on the scene, Patient is leaning forward but not tripoding. She states that she normally breathes this way. She is not in distress but does appear uncomfortable. There is no increased work of breathing. Exam is not a warming to strip cutting machine operator on the scene. Her vital signs are [...] Assessment and Plan as documented by the Wireless Communications Engineer. Patient given the opportunity to ask questions. As per above, patient with hypokalemia unresponsive to oral supplements. Per strip cutting machine operator on the scene, VSS, no symptoms. K is 2.6. Cr is 1.8. Impression: Hypokalemia - repeated critical values in the setting of CKD without ability to recheck and frequently monitor in this setting. Additionally unable to evaluate for low mag which could be contributing. Discussed with patient and she agrees given the urgency of the situation. Plan: Transported to [place] ED. Expect call made. Not available 06/09/2024 10:12:54 Plan of Treatment Reminders Order Date Submit Date Provider Last Modified By Organization Details Last Modified Time Details Appointments None recorded . Lab BMP, serum or plasma 2023 024 [facility], [address] [place] [address], [id number], 4 19:48:59 BMP, serum or plasma 2023 024 [facility], [address] [place] [address], [id number], 4 08:14:39 rapid flu (A+B) 2023 024 [facility], [address] [place] [address], [id number], 4 18:27:02 rapid SARS CoV 2 Ag, QL IA, respirat ory specimen 2023 024 [facility], [address] [place] [address], [id number], 4 18:27:18 respirat ory pathogen s DNA + RNA panel, ANITA+prob e, nasophar ynx 2023 024 [facility] (Centralized Electronic Ordering - All Locations), Patient Can Go To The Location Of Their Choice, [address] 4 18:05:53 rapid SARS CoV 2 Ag, QL IA, respirat ory specimen [email or web address] [place] [address], [address] [place] [address], [id number], 3 15:56:56 Referral None recorded . Procedures None recorded . Surgeries None recorded . Imaging None recorded . Medication Orders tacho m chloride ER 20 mEq tablet,e xtended release 2023 024 [facility], [address] [place] [address], [address], 23:08:22 Patient TargetsNo targets recorded. Patient InstructionsNo instructions recorded. Reason for Referral None Reported. Results Created Date Observation Date Name Description Value Unit Range Abnormal Flag Note LastModifiedBy Organization Detail LastModifiedTime 01/13/2001/12/2023 rapid SARS CoV 2 Ag, QL IA, respi rator y speci men rapid SARS CoV 2 Ag, QL IA, respiratory specimen negati ve Not Available [facility] ed [address] [place] [address], [phone], 01/12/2023 15:56:47 01/16/20 24 01/17/2024 COVID -19, FLU A+B AND RSV sars-cov-2, ANITA Not Detect ed not detect ed Not Available [facility] ([facility]) [address] [place], [address], 01/17/2024 18:05:53 01/16/20 24 01/17/2024 COVID -19, FLU A+B AND RSV influenza A, ANITA Detect ed not detect ed abnormal Not Available [facility] ([facility]) [address] [place], [address], 01/17/2024 18:05:53 01/16/20 24 01/17/2024 COVID -19, FLU A+B AND RSV influenza B, ANITA Not Detect ed not detect ed Not Available [facility] ([facility]) [address] [place], [address], 01/17/2024 18:05:53 01/16/20 24 01/17/2024 COVID -19, FLU A+B AND RSV RSV, ANITA Not Detect ed not detect ed Not Available [facility] ([facility]) [address] [place], [address], 01/17/2024 18:05:53 01/16/20 24 01/17/2024 COVID -19, [...] in this assay . Not Available [facility] ([facility]) [address] [facility], [place], [address], 01/17/2024 18:05:53 01/16/20 24 01/16/2024 rapid SARS CoV 2 Ag, QL IA, respi rator y speci men rapid SARS CoV 2 Ag, QL IA, respiratory specimen negati ve Not Available Main [facility] Inst [facility] [address] [place] [address], [place], [address], 01/16/2024 15:11:23 01/16/20 24 01/16/2024 rapid flu (A+B) Flu negati ve Not Available Main - Inst [facility] [address] [facility], [place], [address], 01/16/2024 15:11:17 Result Notes None recorded. Medical [...] Not Available Not Available Not Available [employer] [place] Lite kit active Not Available Not Avail [...] Details Last Updated DateTime 3 80 /min 446871 g 14 /min 96 % 96 % 162.56 cm 97.4 [degF] 150 mm[Hg] 65 mm[Hg] Not Available [facility] - production 3 13:52:48 Date Recorded Body temperature Body weight Respiratory rate Oxygen saturation Oxygen saturation in Arterial blood by Pulse oximetry Heart rate Systolic blood pressure Diastolic blood pressure Provider Name and Address Organization Details Last Updated DateTime 4 101 [degF] 18189.3 2 g 22 /min 93 % 93 % 102 /min 132 mm[Hg] 76 mm[Hg] Not Available [facility] 4 15:07:43 Date Recorded Heart rate Body weight Respiratory rate Oxygen saturation Oxygen saturation in Arterial blood by Pulse oximetry Body temperature Systolic blood pressure Diastolic blood pressure Provider Name and Address Organization Details Last Updated DateTime 4 86 /min 63645.8 08 g 16 /min 97 % 97 % 97.8 [degF] 176 mm[Hg] 80 mm[Hg] Not Available [facility] 4 12:47:36 Date Recorded Oxygen saturation Oxygen saturation in Arterial blood by Pulse oximetry Respiratory rate Body temperature Heart rate Systolic blood pressure Diastolic blood pressure Provider Name and Address Organization Details Last Updated DateTime 4 99 % 99 % 16 /min 98.1 [degF] 88 /min 182 mm[Hg] 90 mm[Hg] Not Available [facility] 4 09:00:34 Date Recorded Body temperature Heart [...] Updated DateTime 3 100.5 [degF] 92 /min 52005.1 76 g 14 /min 100 % 100 % 100.5 [degF] 92 /min 14 /min 100 % 100 % 06770.1 76 g 135 mm[Hg] 80 mm[Hg] 135 mm[Hg] 80 mm[Hg] Not Available [facility] 3 15:55:09 Social History None recorded. Functional [...] 278 Junaid Felix MD Main - [facility] [address] [place] [address] 12/01/2021 15:12:14 06/02/2022 15:19:20 Nasal congestion 75952545 R09.81 Congestion of nasal sinus 59739098 R09.81 293 Dez Carrillo MD Main - [facility] [address] [place] [address] 0 12/02/2021 12:18:57 07/17/2022 14:20:33 1331 Easton Monahan MD Main - [facility] [address] [place] [address] 0 02/01/2022 16:35:18 06/09/2022 14:47:07 Congestive heart failure 71188167 I50.9 Patient presents with edema attriuted to CHF. She had already been seen in clinic earlier in the day and bumex dose was increased. There was no dyspnea or acute symptoms to merit IV loop diuretic administra tion at home. 2194 Rancho Polo MD Main - [facility] [address] [place], [place] [address] 0 03/18/2022 16:59:05 06/07/2022 12:12:53 Exposure to SARS-CoV-2 378416395 Z20.822 3618 Junaid Felix MD Main - [facility] [address] [place], [place] [phone] 05/30/2022 15:02:11 06/09/2022 12:57:37 Dyspnea on exertion 35680726 R06.09 6744 Beba Rios MD Main - [facility] [address] [place] [phone] 10/05/2022 17:31:55 10/07/2022 10:24:22 Acute viral bronchitis 528386993 J20.8 9412 Junaid Felix MD Main - [facility] [address] [place] [address] 01/12/2023 15:54:12 01/17/2023 10:30:44 Viral gastroenteritis 037471965 A08.4 51480 Rancho Polo MD Main - [facility] [address] [place] [address] 03/02/2023 13:52:40 03/10/2023 10:46:13 Peripheral edema 922913264 R60.9 [address]61 Rosetta Zhang MD Main - [address] [address] 01/16/2024 15:07:33 01/16/2024 22:27:10 Fever 956264235 R50.9 [address]3653 Xiao Guerrero MD Main - [address] [address] 06/07/2024 12:44:50 06/10/2024 22:12:37 Hypokalemia 19030989 E87.6 I provided real -time medical direction via phone for this encounter, and was available for additional phone based assistance as needed. I have reviewed and agree with the Assessment and Plan as documented by the Wireless Communications Engineer. Patient given the opportunit y to ask questions. 63 yo seen yesterday in ED for hypokalemi a to 2.5, now being seen by [facility] for close follow up. Just started taking K supplments a few hours ago this am. Unclear the dose as these pills were placed in a pill pack (unable to separate/c larify dose per strip cutting machine operator) .Repeat lab 2.6. Will administer 80mEq and advised her to continue taking prescribed supplement al K. will request follow up with [facility] for POC labs on Saturday 06/09. Reviewed warning signs/sx. 28469 Rosetta Zhang MD Main - [address] [address] 06/09/2024 09:00:29 06/10/2024 22:41:56 Hypokalemia 91982422 E87.6 Health Concerns Section Related Observation LastModified by Organization Detai ls LastModified Time None Recorded Concern Status LastModified by Organization Details LastModified Time None Recorded Advance Directives Directive None Recorded Payers Encounter Date Sequence Insurance Name Policy Number Policy Conde Covered Member ID Conde Member ID Guarantor Name 01/12/2023 1 [facility] - DOS PRIOR TO 2022 - DUAL ELIGIBLE (MEDICARE REPLACEMENT/AD VANTAGE - HMO) Natalie Cutler [id number] Natalie Cutler 03/02/2023 1 [facility] - DOS ON OR AFTER 2022 - DUAL ELIGIBLE - SKILLED NURSING OPTIONS AND ONE CARE (MEDICARE REPLACEMENT/AD VANTAGE - HMO) Natalie Cutler [id number] Natalie Cutler 01/16/2024 1 [facility] - DOS ON OR AFTER 2022 - DUAL ELIGIBLE - SKILLED NURSING OPTIONS AND ONE CARE (MEDICARE REPLACEMENT/AD VANTAGE - HMO) Natalie Cutler [id number] Natalie Cutler 06/07/2024 1 [facility] - DOS ON OR AFTER 2022 - DUAL ELIGIBLE - SKILLED NURSING OPTIONS AND ONE CARE (MEDICARE REPLACEMENT/AD VANTAGE - HMO) Natalie Cutler [id number] Natalie Cutler 06/09/2024 1 [facility] - DOS ON OR AFTER 2022 - DUAL ELIGIBLE - SKILLED NURSING OPTIONS AND ONE CARE (MEDICARE REPLACEMENT/AD VANTAGE - HMO) Natalie Cutler [id number] Natalie Bhupendra Cutler Notes Date Note Type Note Provider [...] to be evaluated. Junaid Felix MD [address] [facility],[address], [place], [address], [employer] 01/12/2023 15:58:30 03/02/2023 text/html CRC Nursing Assessment: [...] .................... .................... .................... .................... .................... .................... . Wireless Communications Engineer Note From Ramses Aguila: Pt caox3 in chair. Pt reports her left foot started swelling x7 days ago, got worse last night. Pt denies trauma, pain, difficulty breathing, dizziness or headache. [place] warm and dry, +1 pedal edema left [...] . Disposition: Fulfilled Rancho Polo MD [address] [facility],[address], [place], [address], [employer]NE GONZALEZ 03/10/2023 08:51:17 01/16/2024 text/html CRC Nurse Triage Notes (Dionna Martinez): Reason For Request: [employer] reporting a cold>cold>jackman sputum>wheezing throughout her lungs [...] denies any sob Rosetta Zhang MD [address] [facility],[address], [place], [address], [facility] - [employer] 01/16/2024 17:54:07 06/07/2024 text/html CRC Nurse Triage [...] take a diuretic. Member agreeable to an [facility] visit. Wireless Communications Engineer Organization Information for Benigno Monique Business Legal Name: [facility] Address: [address] [place] [address], [place] [address], Cinder Crane Operator: Damian Taylor MD CLIA No.: [id number] Wireless Communications Engineer POC Test Results from Benigno Monique [facility] (13:27:22) pH: 7.388 pH units pCO2: 38.9 mmHg pO2: 54.6 mmHg Na: 138 mmol/L K: 2.6 mmol/L iCa: 1.10 mmol/L Cl: 100 mmol/L TCO2: 23.3 mEq/L Hct: 33 % Hb: 11.2 g/dL Glu: 505 mg/dL Lac: 4.20 mmol/L Cr: 1.77 mg/dL BUN: 17 mg/dL A .................... .................... .................... .................... .................... .................... .................... . Wireless Communications Engineer Note From Benigno Monique: Pt sts no [...] assessed, POc bloodwork k 2.6. Lungs clear. [facility] [place] and 80 ml/eq po given. [facility] [place] Follow up POc bloodwork for Monday or Monday. Pt education on signs indicating the ER. Pt advised to follow up with pcp. .................... .................... .................... .................... .................... .................... .................... . Disposition: Fulfilled Xiao Guerrero MD [address] [facility],[address], [place], [address], [facility] - [employer] 06/07/2024 23:08:29 06/09/2024 text/html CRC Nurse Triage Notes (Anne Malave): Reason For Request: Revisit Chief Complaints: Electrolyte Imbalance PMH: Diabetes, Heart Disease, Hypertension, COPD/Asthma, CHF Other Allergies: baclofen and sulfur Comments: [facility] [place] Remarksneeds follow up for POC istat (potassium [...] take a diuretic. Member agreeable to an [facility] visit. Wireless Communications Engineer Organization Information for Nish Beyer Business Legal Name: [facility] Address: [address] [place] [address], [place] [address], Cinder Crane Operator: Damian Taylor MD CLIA No.: [id number] Wireless Communications Engineer POC Test Results from Nish Beyer [employer] [facility] (08:56:03) pH: 7.41 pH units pCO2: 36.3 mmHg pO2: 33.4 mmHg Na: 142 mmol/L K: 2.6 mmol/L iCa: 1.08 mmol/L Cl: 107 mmol/L TCO2: 22.6 mEq/L Hct: 34 % Hb: 11.5 g/dL Glu: 213 mg/dL Lac: 2.5 mmol/L Cr: 1.8 mg/dL BUN: 22 mg/dL A .................... .................... .................... .................... .................... .................... .................... . Wireless Communications Engineer Note From Nish Beyer: Today? s visit [...] Normal gait. Today? s potassium is 2.6. [facility] [place] and recommended the pt be seen in the ED. Pt agreeable to ambulance transport to [place] ED. SBAR to [facility]. .................... .................... .................... .................... .................... .................... .................... . Disposition: Fulfilled Rosetta Zhang MD [address] [facility],[address], [place], [address], BREANNE TYSON 06/09/2024 10:13:32 OBGyn Episode No OBEpisode recorded.
--- OUTSIDE RECORDS SUMMARY | 2024-12-04 16:13 | XMS_ITS | Encounter Summary ---
Author Organization [facility] Address [address] [place] [address] Care Team Providers Care Piping Blocker Name Role Phone Alison Aguirre APRN Primary Care Provider [phone] Gurjit Baum MD Primary Care Provider [phone] Alison Aguirre APRN Primary Care Provider [phone] Soila Pineda Unavailable [phone] Gaaytri George APRN Primary Care Provider Neva Velásquez RN Unavailable Albaro Kellogg MD Unavailable Aging, [facility] Unavailable [phone] Ralph Wilcox MD Unavailable [phone] Otilia Paulson OD Unavailable [phone] Roselia Abernathy MD Unavailable [phone] Gayatri George APRN Primary Care Provider [phone] Gayatri George APRN Unavailable [phone] Encounter Details Date Type Department Care Team (Late st Contact Info) Description 09/18/2017 Scanned Document [address] [place] [address] Provider, Generic Social History Tobacco Use Types [...] on filedocumented in this encounter Care Teams Piping Blocker Relationship Specialty Start Date End Date Alison Aguirre APRN PCP - General Internal Medicine 06/06/17 10/15/17 Gurjit Baum MD [address] [place] [address] PCP - General Internal Medicine 10/16/17 10/23/17 Alison Aguirre APRN PCP - General Internal Medicine 10/24/17 07/16/18 Gayatri George APRN [address] [place] [address] PCP - General Family Medicine 07/17/18 11/17/20 Gayatri George APRN [address] 4 [place] [address] PCP - General Family Medicine 11/25/20 01/20/21 Gayatri George APRN [address] [place] [address] PCP - United Medicare Attributed 03/02/19 06/01/19 Soila Pineda, BARGE MASTER [address] [place] [address] ICP PCMH+ Apartment Assistant Manager 05/08/18 11/26/18 Neva Velásquez, RN [address] [place] [address] ICP Community City Planning Engineer 11/29/18 08/15/21 Albaro Kellogg MD [address] [place] [address] Physician Endocrinology 08/01/19 11/17/20 Aging, [facility] 02/04/20 Ralph Wilcox MD [address] [place] [address] Gastroenterology 11/25/20 Otilia Paulson OD [address] [place] [address] Consulting Provider Optometry 11/25/20 [place] [address] Obstetrics and Gynecology 11/25/20 documented as of this encounter
--- OUTSIDE RECORDS SUMMARY | 2024-12-04 16:13 | XMS_ITS | Clinical Summary ---
Author Organization [facility] Address [address] [facility] [address] [place] [address] Phone Care Team Providers Care Box Office Agent Name Role Phone Tommie Suarez MD Primary [...] 1 Active ergocalciferol (VITAMIN D2) 1.25 MG (91031 UT) capsule @@TAKE 1 CAPSULE BY MOUTH [...] 10,000 UnitsIndications:Anemi a in chronic kidney disease 46786 Units IJ Weekly 11/12/2020 Active ferumoxytol (FERAHEME) injection 510 mgIndications:Other iron deficiency anemia 510 mg IV Once in dialysis 07/05/2021 Active Epoetin Sally-epbx solution 40,000 UnitsIndications:Anemi a in chronic kidney disease,Chronic kidney disease stage 4 (HCC),Hypertensive renal disease 80926 Units IJ Every 7 days 07/15/2021 Active epoetin sally (EPOGEN,PROCRIT) injection 10,000 UnitsIndications:Anemi a due to Renal Failure 20222 Units IV Every 14 days 09/20/2022 Active [...] patient's age to complete this topic Insurance [facility] ([id number]) [facility] ([id number]) Care Teams Box Office Agent Relationship Specialty Start Date End Date Tommie Suarez MD [address] [id number] PCP - General 10/12/20
== END 2024-12-04 14:35 | disposition home or self-care (01) ==
PROVIDERS: PCP Family Medicine; Visit Provider Internal Medicine
DX: I50.9 Heart failure, unspecified (principal); N18.4 Chronic kidney disease, stage 4 (severe)
CPT/HCPCS: 93010; 99204; G2211

== ENCOUNTER → 2024-12-04 13:35 | Outpatient (BNVA) | payer OTHER, SELFPAY | PROVIDERS: PCP Family Medicine; Visit Provider Internal Medicine | DX: I50.9 Heart failure, unspecified (principal); N18.4 Chronic kidney disease, stage 4 (severe) | CPT/HCPCS: 93005; 99202 ==

== ENCOUNTER → 2025-01-01 12:56 | Outpatient (REF) | payer OTHER, SELFPAY ==
--- NOTE | 2025-01-01 12:59 | CA_ITS ---
Transthoracic Echocardiogram Patient (Last, First, Middle): Natalie Cutler, Gender: Female Date of : 1960 Age: 64 Procedure Date: 01/01/2025 Procedure Type: Transthoracic Echocardiogram Location: OP Height: 167.64 cm Weight: 91.63 kg BSA: 2.01 m2 Heart Rate: bpm BP: 152 / 82 mmHg Dress Operator: TO Referring MD: Kalia Amaro MD Symptoms: I50.9 - Heart failure, unspecified Study Quality: Technically Difficult, no IV access ECG Rhythm: Sinus with PVCs Conclusions: - LVEF appears mildly reduced. Cannot quantify. - Wall motion difficult to assess. Possible inferior/ inferoseptal and some inferolateral hypokinesis. - No obvious valvular pathology seen on this study. Findings Left Ventricle Normal left ventricular cavity size. Diastolic function is normal for age. There is severe septal asymmetric hypertrophy. Due to lack of IV access, could not use contrast. Wall motion difficult to assess. Possible inferior/ inferoseptal and some inferolateral hypokinesis. LVEF appears mildly reduced. Cannot quantify. Wall Motion Rest Echo Findings The mid inferior and mid inferoseptal segments are hypokinetic. Right Ventricle The right ventricle was not well visualized. Normal right ventricular cavity size. Atria Both atria are normal in size. Aortic Valve There is a normal trileaflet aortic valve. There is mild calcification of the aortic valve. There is no aortic valve stenosis. There is no aortic valve regurgitation. Mitral Valve The mitral valve appears normal. There is no mitral valve regurgitation. There is no mitral valve stenosis. Pulmonic Valve The pulmonic valve is likely normal. Tricuspid Valve There is no tricuspid valve regurgitation. Tricuspid regurgitation envelope is inadequate for calculation of right ventricular systolic pressure. Great Vessels The asc aorta is normal in size. Venous The inferior vena cava was not well visualized. The inferior vena cava is normal in size and collapses greater than 50% with inspiration. Pericardium/Pleural There is no evidence of pericardial effusion. Prior Study Comparison No prior study available for comparison. Recommendations, Care & Conclusions No obvious valvular pathology seen on this study. Measurements 2D Linear Measurements IVSd: 1.60 0.6-0.9/0.6-1.0 cm LVIDd: 4.04 3.9-5.3/4.2-5.9 cm LVIDd Index: 2.01 2.4-3.2/2.2-3.1 cm/m2 LVIDs: 3.12 2.0-3.6 cm LVPWd: 1.06 0.7-1.1 cm LA Diam: 3.60 2.7-3.8/3.0-4.0 cm LAIDs Index: 1.79 1.5-2.3 cm/m2 LV Mass: 244.22 67-162/88-224 g LV Mass Index: 121.50 43-95/49-115 g/m2 LVOT Diam: 2.30 3.0+(-)1.3 cm Mitral Valve MV Pk E: 0.64 MV PK A: 1.08 MV Decel Time: 131.00 E/A: 0.60 E'Lateral: 4.08 E'Medial: 5.11 E/E' Med: 12.50 E/E' Lat: 15.60 PHT: 38.00 MVA PHT: 5.79 Decel Laurens: 4.88 Aortic Valve AoV Pk Rodolfo: 1.09 AoV Pk Grad: 5.00 LVOT LVOT Pk Rodolfo: 0.68 LVOT Mn Rodolfo: 0.46 LVOT VTI: 0.13 LVOT Pk Grad: 2.00 LVOT Mn Grad: 1.00 LVOT Diam: 2.30 LVOT Area: 4.15 Diastolic Function MV Pk E: 0.64 MV Pk A: 1.08 E/A: 0.60 E'Medial: 5.11 E/E' Med: 12.50 E' Laterial: 4.08 E/E' Lat: 15.60 Great Vessels Aorta Sinus of Valsalva: 3.38 2.0-3.5 cm Ao Asc: 3.10 2.1-3.4 cm Updated in Other Vendor System with Status of Final Kalia Amaro MD electronically signed on 01/03/2025 12:42:21 PM with status of Final
--- OUTSIDE RECORDS SUMMARY | 2025-01-01 15:28 | XMS_ITS | Encounter Summary ---
Author Organization [facility] Address [address] [place] [address] Care Team Providers Care Acid Condenser Name Role Phone Soila Pineda Unavailable [phone] Gayatri George APRN Primary Care Provider [phone] Neva Velásquez RN Unavailable Albaro Kellogg MD Unavailable Aging, [place] [facility] Unavailable [phone] Ralph Wilcox MD Unavailable [phone] Otilia Paulson OD Unavailable [phone] Roselia Abernathy MD Unavailable [phone] Gayatri George APRN Primary Care Provider [phone] Gayatri George APRN Unavailable [phone] Encounter Details Date Type Department Care Team (Late st Contact Info) Description 09/11/2018 Scanned Document [facility] [address] [place] [address] Provider, Generic Social History Tobacco Use Types [...] on filedocumented in this encounter Care Teams Acid Condenser Relationship Specialty Start Date End Date Gayatri George, ANA [address] [facility] 4 [place] [address] PCP - General Family Medicine 07/17/18 11/17/20 Gayatri George, PHOTOCOMPOSING KEYBOARD OPERATOR [address] [address] PCP - General Family Medicine 11/25/20 01/20/21 Gayatri George, PHOTOCOMPOSING KEYBOARD OPERATOR 30 [place] [address] PCP - United Medicare Attributed 03/02/19 06/01/19 Soila Pineda, BACTERIOLOGIST SOIL [address] [facility] 4 [place] [address] ICP PCMH+ Soda Worker 05/08/18 11/26/18 Neva Velásquez, RN [address] [facility] 4 [place] [address] ICP Community Bias Binding Folder 11/29/18 08/15/21 Albaro Kellogg MD [address] [place] [address] Physician Endocrinology 08/01/19 11/17/20 Aging, [facility] 02/04/20 Ralph Wilcox MD [address] [place] [address] Gastroenterology 11/25/20 Otilia Paulson OD [address] [place] [address] Consulting Provider Optometry 11/25/20 Roselia Abernathy MD [address] [place] [address], [place] [address] Obstetrics and Gynecology 11/25/20 documented as of this encounter
--- OUTSIDE RECORDS SUMMARY | 2025-01-01 15:28 | XMS_ITS | Encounter Summary ---
Author Organization [facility] Address [address] [place] [address] Care Team Providers Care Cupola Melter Name Role Phone Soila Pineda MSW Unavailable [phone] Gayatri George APRN Primary Care Provider [phone] Neva Velásquez RN Unavailable Albaro Kellogg MD Unavailable Aging, [place] [facility] Unavailable Ralph Wilcox MD Unavailable Otilia Paulson OD Unavailable [phone] Roselia Abernathy MD Unavailable Gayatri George APRN Primary Care Provider [phone] Gayatri George APRN Unavailable [phone] Encounter Details Date Type Department Care Team (Late st Contact Info) Description 08/13/2018 Scanned Document [address] [place] [phone] Provider, External, [address] [place] [address] Social History Tobacco Use Types Packs/Day Years [...] on filedocumented in this encounter Care Teams Cupola Melter Relationship Specialty Start Date End Date Gayatri George, PUMP HOUSE TECHNICIAN [address] [place] [address] PCP - General Family Medicine 07/17/18 11/17/20 Gayatri George, PUMP HOUSE TECHNICIAN [address] [address] PCP - General Family Medicine 11/25/20 01/20/21 Gayatri George, PUMP HOUSE TECHNICIAN 30 [place] [address] PCP - [place] Medicare Attributed 03/02/19 06/01/19 Soila Pineda, RUBY ON RAILS WEB DEVELOPER [address] [place] [address] [facility] PCM+ Stope Miner 05/08/18 11/26/18 Neva Velásquez, RN [address] [place] [address] [facility] Community Exchange Operator 11/29/18 08/15/21 Albaro Kellogg MD [address] [place] [address] Physician Endocrinology 08/01/19 11/17/20 Aging, [place] [facility] 02/04/20 Ralph Wilcox MD [address] [place] [address] Gastroenterology 11/25/20 Otilia Paulson OD [address] [place] [address] Consulting Provider Optometry 11/25/20 Roselia Abernathy MD [address] [place] [address] Obstetrics and Gynecology 11/25/20 documented as of this encounter
--- OUTSIDE RECORDS SUMMARY | 2025-01-01 15:28 | XMS_ITS | Encounter Summary ---
Author Organization [facility] Address [address] [place] [address] Care Team Providers Care Gas Shovel Operator Name Role Phone Soila Pineda MSW Unavailable [phone] Gayatri George APRN Primary Care Provider [phone] Neva Velásquez RN Unavailable Albaro Kellogg MD Unavailable Aging, [place] [facility] Unavailable Ralph Wilcox MD Unavailable Otilia Paulson OD Unavailable [phone] Roselia Abernathy MD Unavailable Gayatri George APRN Primary Care Provider [phone] Gayatri George APRN Unavailable [phone] Encounter Details Date Type Department Care Team (Late st Contact Info) Description 09/11/2018 Scanned Document [address] [place] [phone] Provider, External, [address] [place] [address] Social History Tobacco Use Types Packs/Day Years [...] on filedocumented in this encounter Care Teams Gas Shovel Operator Relationship Specialty Start Date End Date Gayatri George, UTILITY DRIVER [address] [place] [address] PCP - General Family Medicine 07/17/18 11/17/20 Gayatri George, UTILITY DRIVER [address] [address] PCP - General Family Medicine 11/25/20 01/20/21 Gayatri George, UTILITY DRIVER [address] [place] [address] PCP - [place] Medicare Attributed 03/02/19 06/01/19 Soila Pineda, QM NURSE [address] [place] [address] [facility] PCM+ Auto Polisher 05/08/18 11/26/18 Neva Velásquez, RN [address] [place] [address] [facility] Community Custom Grinder 11/29/18 08/15/21 Albaro Kellogg MD [address] [place] [address] Physician Endocrinology 08/01/19 11/17/20 Aging, [place] [facility] 02/04/20 Ralph Wilcox MD [address] [place] [address] Gastroenterology 11/25/20 Otilia Paulson OD [address] [place] [address] Consulting Provider Optometry 11/25/20 Roselia Abernathy MD [address] [place] [address] Obstetrics and Gynecology 11/25/20 documented as of this encounter
--- OUTSIDE RECORDS SUMMARY | 2025-01-01 15:28 | XMS_ITS | Encounter Summary ---
Author Organization [facility] Address [address] [place] [address] Care Team Providers Care Power Lineman Technician Name Role Phone Gayatri George APRN Primary Care Provider [phone] Neva Velásquez RN Unavailable Albaro Kellogg MD Unavailable Aging, [facility] Unavailable Ralph Wilcox MD Unavailable Otilia Paulson OD Unavailable [phone] Roselia Abernathy MD Unavailable [phone] Gayatri George APRN Primary Care Provider Gayatri George APRN Unavailable [phone] Encounter Details Date Type Department Care Team (Late st Contact Info) Description 05/03/2019 Scanned Document [facility] Endocrinology [address] [phone] Qi Aponte PA [address] [place] [address] [phone] Social History Tobacco Use Types Packs/Day Years [...] on filedocumented in this encounter Care Teams Power Lineman Technician Relationship Specialty Start Date End Date Gayatri George APRN PCP - General Family Medicine 07/17/18 11/17/20 Gayatri George APRN PCP - General Family Medicine 11/25/20 01/20/21 Gayatri George APRN 30 [place] [address] PCP - [place] Medicare Attributed 03/02/19 06/01/19 Neva Velásquez, RN [address] [address] [facility] Community Elementary Educator 11/29/18 08/15/21 Albaro Kellogg MD [address] [place] [address] Physician Endocrinology 08/01/19 11/17/20 Aging, [facility] 02/04/20 Ralph Wilcox MD [address] [place] [address] Gastroenterology 11/25/20 Otilia Paulson OD [address] [place] [address] Consulting Provider Optometry 11/25/20 Roselia Abernathy MD [address] [place] [address] Obstetrics and Gynecology 11/25/20 documented as of this encounter
--- OUTSIDE RECORDS SUMMARY | 2025-01-01 15:28 | XMS_ITS | Encounter Summary ---
Author Organization [facility] Address [address] [place] [address] Care Team Providers Care Clutch Inspector Name Role Phone Gayatri George APRN Primary Care Provider [phone] Neva Velásquez RN Unavailable Albaro Kellogg MD Unavailable Aging, [place] [facility] Unavailable [phone] Ralph Wilcox MD Unavailable [phone] Otilia Paulson OD Unavailable [phone] Roselia Abernathy MD Unavailable [phone] Gayatri George APRN Primary Care Provider Encounter Details Date Type Department Care Team (Late st Contact Info) Description 08/14/2019 Scanned Document [facility] INTERNAL MED SCAN Gayatri George APRN [address] [place] [address] Social History Tobacco Use Types Packs/Day Years [...] on filedocumented in this encounter Care Teams Clutch Inspector Relationship Specialty Start Date End Date Gayatri George APRN PCP - General Family Medicine 07/17/18 11/17/20 Gayatri George APRN PCP - General Family Medicine 11/25/20 01/20/21 Neva Velásquez, JAMAR [address] [facility] 4 [place] [address] [facility] Community Campaign Management Senior Manager 11/29/18 08/15/21 Albaro Kellogg MD [address] [place] [address] Physician Endocrinology 08/01/19 11/17/20 [facility] [place] [facility] 02/04/20 Ralph Wilcox MD [address] [address] Gastroenterology 11/25/20 Otilia Paulson OD [address] [place] [address] Consulting Provider Optometry 11/25/20 Roselia Abernathy MD [address] [place] [address] Obstetrics and Gynecology 11/25/20 documented as of this encounter
--- OUTSIDE RECORDS SUMMARY | 2025-01-01 15:28 | XMS_ITS | Encounter Summary ---
Author Organization [facility] Address [address] [place] [address] Care Team Providers Care Hydroelectric Powerplant Supervisor Name Role Phone Gayatri George APRN Primary Care Provider [phone] Neva Velásquez RN Unavailable Albaro Kellogg MD Unavailable Aging, [facility] Unavailable [phone] Ralph Wilcox MD Unavailable Otilia Paulson OD Unavailable [phone] Roselia Abernathy MD Unavailable Gayatri George APRN Primary Care Provider [phone] Gayatri George APRN Unavailable [phone] Reason for Visit * Reason Comments Medication Refill Encounter Details Date Type Department Care Team (Late st Contact Info) Description 01/15/[address] [place] [phone] Gayatri George, ANA [address] [place] [address] Gastroesophageal reflux disease, esophagitis presence not specified; [...] complicated documented in this encounter Care Teams Hydroelectric Powerplant Supervisor Relationship Specialty Start Date End Date Gayatri George APRN PCP - General Family Medicine 07/17/18 11/17/20 Gayatri George APRN PCP - General Family Medicine 11/25/20 01/20/21 Gayatri George APRN 30 [place] [address] PCP - [place] Medicare Attributed 03/02/19 06/01/19 Neva Velásquez, RN [address] [address] [facility] Community Intellectual Property Lawyer 11/29/18 08/15/21 Albaro Kellogg MD [address] [place] [address] Physician Endocrinology 08/01/19 11/17/20 Aging, [facility] 02/04/20 Ralph Wilcox MD [address] [place] [address] Gastroenterology 11/25/20 Otilia Paulson OD [address] [place] [address] Consulting Provider Optometry 11/25/20 Roselia Abernathy MD [address] [place] [address] Obstetrics and Gynecology 11/25/20 documented as of this encounter
--- OUTSIDE RECORDS SUMMARY | 2025-01-01 15:28 | XMS_ITS | Encounter Summary ---
Author Organization [facility] Address [address] [place] [address] Care Team Providers Care Merchandising Team Lead Name Role Phone Alison Aguirre APRN Primary Care Provider [phone] Soila Pineda Unavailable [phone] Gayatri George APRN Primary Care Provider Neva Velásquez RN Unavailable Albaro Kellogg MD Unavailable Aging, [place] [facility] Unavailable [phone] Ralph Wilcox MD Unavailable [phone] Otilia Paulson OD Unavailable [phone] Roselia Abernathy MD Unavailable [phone] Gayatri George APRN Primary Care Provider + [phone] Gayatri George APRN Unavailable [phone] Encounter Details Date Type Department Care Team (Late st Contact Info) Description 11/09/2017 Scanned Document [facility] Heart & Vascular [place] at [facility] - Cardiology [address] [place] [address] Brenda Tony MD [address] [place] [address] Social History Tobacco Use Types Packs/Day Years [...] on filedocumented in this encounter Care Teams Merchandising Team Lead Relationship Specialty Start Date End Date Alison Aguirre APRN PCP - General Internal Medicine 10/24/17 07/16/18 Gayatri George, DIRECTOR OF VIDEO ANALYTICS [address] [place] [address] PCP - General Family Medicine 07/17/18 11/17/20 Gayatri George, DIRECTOR OF VIDEO ANALYTICS [address] [id number] PCP - General Family Medicine 11/25/20 01/20/21 Gayatri George, DIRECTOR OF VIDEO ANALYTICS 30 [place] [address] PCP - [place] Medicare Attributed 03/02/19 06/01/19 Soila Pineda, CAR AND YARD SUPERVISOR [address] [place] [address] [facility] PCM+ Monument Installer 05/08/18 11/26/18 Neva Velásquez, RN [address] [address] [facility] Community Insole Rasper 11/29/18 08/15/21 Albaro Kellogg MD [address] [place] [address] Physician Endocrinology 08/01/19 11/17/20 [facility] 02/04/20 Ralph Wilcox MD [address] [place] [address] Gastroenterology 11/25/20 Otilia Paulson OD [address] [place] [address] Consulting Provider Optometry 11/25/20 Roselia Abernathy MD [address] [place] [address] Obstetrics and Gynecology 11/25/20 documented as of this encounter
--- OUTSIDE RECORDS SUMMARY | 2025-01-01 15:28 | XMS_ITS | Encounter Summary ---
Author Organization [facility] Address [address] [place] [address] Care Team Providers Care Information Technology Architect Name Role Phone Gayatri George APRN Primary Care Provider [phone] Neva Velásquez RN Unavailable Albaro Kellogg MD Unavailable Aging, [facility] Unavailable Ralph Wilcox MD Unavailable Otilia Paulson OD Unavailable [phone] Roselia Abernathy MD Unavailable [phone] Gayatri George APRN Primary Care Provider Gayatri George APRN Unavailable [phone] Encounter Details Date Type Department Care Team (Late st Contact Info) Description 05/01/2019 Scanned Document [facility] Endocrinology [address] [phone] Qi Aponte PA [address] [place] [id number] Social History Tobacco Use Types Packs/Day Years [...] on filedocumented in this encounter Care Teams Information Technology Architect Relationship Specialty Start Date End Date Gayatri George APRN PCP - General Family Medicine 07/17/18 11/17/20 Gayatri George APRN PCP - General Family Medicine 11/25/20 01/20/21 Gayatri George APRN 30 [place] [address] PCP - [place] Medicare Attributed 03/02/19 06/01/19 Neva Velásquez, RN [address] [address] [facility] Community Railroad Car Letterer 11/29/18 08/15/21 Albaro Kellogg MD [address] [place] [address] Physician Endocrinology 08/01/19 11/17/20 Aging, [facility] 02/04/20 Ralph Wilcox MD [address] [place] [address] Gastroenterology 11/25/20 Otilia Paulson OD [address] [place] [address] Consulting Provider Optometry 11/25/20 Roselia Abernathy MD [address] [place] [address] Obstetrics and Gynecology 11/25/20 documented as of this encounter
--- OUTSIDE RECORDS SUMMARY | 2025-01-01 15:28 | XMS_ITS | Clinical Summary ---
Author Organization [facility] Address [address] [place] [address] Care Team Providers Care Brim Pouncing Machine Operator Name Role Phone [facility] Unavailable [phone] Ralph Wilcox MD Unavailable [phone] Otilia Paulson OD Unavailable [phone] Roselia Abernathy MD Unavailable [phone] Allergies Active Allergy Reactions Criticality Noted Date [...] polyneuropathy associated with type 2 diabetes mellitus ([facility]) Apply topically 4 (four) times a day [...] type diabetes mellitus with neurological manifestations, uncontrolled(250.62) ([facility]) Once nightly injection 120 pen needle 11 03/13/20 Active ACCU-CHEK ABNER PLUS stripIndications:Type II or unspecified type diabetes mellitus with neurological manifestations, uncontrolled(250.62) ([facility]) 4 times daily. 120 test strip 11 03/13/20 Active Continuous Blood Gluc Logging Tractor Operator Swamp (FREESTYLE EMILE 14 DAY READER) DeviceIndications:Type II or unspecified type diabetes mellitus with neurological manifestations, uncontrolled(250.62) ([facility]) Apply 1 Device topically continuous. 1 Device 03/26/20 Active glucose blood (ACCU-CHEK ABNER PLUS) test stripIndications:Control led type 2 diabetes mellitus with diabetic polyneuropathy, with long-term current use of insulin ([facility]) TEST TWICE DAILY 200 test strip 04/11/20 Active polyethylene glycol-electrolytes (NuLYTELY, TRILYTE) 420 g solution MIX AND DRINK UTD 0 03/20/20 Active Insulin Syringe-Needle U-100 (INSULIN SYRINGE 1CC/31GX5/16 ) 31G X 5 1 ML Misc U WITH EPOGEN Q 14 DAYS 1 04/08/20 Active SUPPLY DME MISCIndications:Stage 2 skin ulcer of sacral region ([facility]) Pressure relieving cushion 1 supply 04/17/20 Active Continuous Blood Gluc Sensor (FREESTYLE EMILE 14 DAY SENSOR) MiscIndications:Type II or unspecified type diabetes mellitus with neurological manifestations, uncontrolled(250.62) ([facility]) Apply 1 Device topically continuous. Apply new [...] pen 3 07/04/20 Active epoetin sally (EPOGEN,PROCRIT) 62029 UNIT/ML injectionIndications:Ane loy, chronic renal failure, stage 4 (severe) ([facility]) Inject 2 mL (20,000 Units total) under the skin every 14 days (2 weeks). 14 mL 1 07/08/20 Active SYRINGE-NEEDLE, DISP, 3 ML (B-D 3CC LUER-LUCRETIA SYR 25GX1/2 ) 25G X 1-1/2 3 ML MiscIndications:Anemia, chronic renal failure, stage 4 (severe) ([facility]) Please use to inject Procrit Q 14 [...] type diabetes mellitus with neurological manifestations, uncontrolled(250.62) ([facility]) INJECT SUBCUTANEOUSLY 20 UNITS DAILY 10 pen 3 08/20/20 Active dulaglutide (TRULICITY) 0.75 MG/0.5ML subcutaneous injectionIndications:Con trolled type 2 diabetes mellitus with diabetic polyneuropathy, with long-term current use of insulin ([facility]) Inject 0.5 mL (0.75 mg total) under the skin once a week. 4 pen 3 08/19/20 19 Active carvedilol (COREG) 6.25 MG tabletIndications:Essent ial hypertension TAKE 2 TABLETS(12.5 MG) BY MOUTH TWICE DAILY WITH MEALS 360 tablet 10/07/19 Active DULoxetine (CYMBALTA) 60 MG capsuleIndications:Diabe tic polyneuropathy associated with type 2 diabetes mellitus ([facility]) Take 1 capsule (60 mg total) by [...] 60 mg daily. She is leaving for [place] next week, will be gone for 1 month. She will follow-up with me when she returns. Assessment & Plan (05/01/2019 3:41 PM EDT): Neurology recommended a trial of Cymbalta. Tapering instructions given for Zoloft. After tapered start Cymbalta 30 mg daily. She is leaving for [place] on 05/21 for 1 month, follow-up prior [...] was seeing one when she lived in [place]. She states that she had an EMG [...] function. She uses the pain medication sparingly. HEAD OF ART reviewed. She is willing to try Tramadol instead of Percocet. Follow up in 1 month. Shortness of breath 08/15/2018 Assessment & Plan (08/15/2018 6:10 PM EST): Shortness of breath specifically after eating. Order placed for a barium swallow to screen for a hiatal hernia. [facility] prescription opiate use 08/15/2018 Moderate persistent asthma [...] she has an upcoming appointment with the chairman & chief executive officer. Repeat A1c due in January. Assessment & [...] & Plan (04/18/2019 7:31 AM EDT): Her industrial hire sales assistant ordered repeat blood work, await these results. 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 Assessment & Plan (02/20/2019 3:32 PM EDT): Her industrial hire sales assistant ordered repeat labs, anemia noted to be worse. He is increasing her Epogen. She has follow-up with him in April. Assessment & Plan (12/24/2018 1:27 PM EDT): Followed by nephrology, had recent labs. Epogen dosing was increased. She has follow-up at the end of December. Assessment & Plan (09/13/2018 12:49 PM EST): Patient had blood work done that was ordered by her industrial hire sales assistant. Noted to be iron deficient, she will start 325 mg of ferrous sulfate daily. Assessment & Plan (08/15/2018 6:09 PM EST): Check iron panel, if this is normal I will start Epogen. Her industrial hire sales assistant is in agreement. Vitamin D deficiency 06/26/2017 [...] her iron levels. I also spoke with [facility] and she has an appointment with [...] time. She is due to see her ase master mechanic in September. Resolved Problems Problem Noted Date Diagnosed Date Resolved Date Stage 2 skin ulcer of sacral region 04/18/2019 06/14/2019 Assessment & Plan (05/01/2019 3:41 PM EDT): Much improved, almost completely healed. Continue with topical zinc daily. Assessment & Plan (04/18/2019 7:30 AM EDT): Prescription for pressure relieving pad given to patient. Also recommend applying akyi-tcu-mgsuzxq zinc oxide twice daily. Follow-up in 2 weeks for reassessment. Follow-up surgery care 01/13/201802/20 Sexual dysfunction in females 01/11/2018 02/20/2019 Encounters Date Type Department Care Team Description 11/27/2024 Telephone [facility] [address] [facility] [address] [place] [phone] Ralph Wilcox MD Results Request 11/05/2024 Telephone [facility] [address] [facility] [address] [place] [address] Garry Chung from Last 3 [...] Mammogram 06/12/2019 06/12/2018 Hemoglobin A1C 10/31/2019 04/30/2019, 01/31, 11/08/2018, Additional history exists Ophthalmology Exam 04/02/2020 [...] AM EDT Breast screening THINPREP PAP TEST (CONSTRUCTION LABORER) WITH HPV REFLEX Routine 05/02/2018 12:00 AM EDT HIV 1/2 AG/AB CMIA REFLEX TO CONFIRMATION Routine 06/13/2017 9:51 AM EDT Encounter to establish care from Last 3 Months or Most Recently Relevant to Health Maintenance Results * (ABNORMAL) Lipid Panel Reflex Direct LDL ([facility]) (07/09/2019 10:45 AM EDT) Cholesterol, Total 83 <200 mg/dL [facility] Cholesterol, HDL 41(L) >50 mg/dL [...] of LDL-C. Mumtaz SS et al. MILAN. 2013;310(69): 5753-6072 (http://education.Sulfagenix/faq/THD372) Cholesterol/HDL Ratio 2.0 <5.0 (calc) [facility] Non HDL Chol. (LDL+VLDL) 42 <130 mg/dL (calc) [facility] Comment: For patients with diabetes plus 1 major ASCVD risk factor, treating to a non-HDL-C goal of <100 mg/dL (LDL-C of <70 mg/dL) is considered a therapeutic option. Blood specimen (specimen) 07/09/2019 10:45 AM EDT 07/09/2019 10:45 AM EDT [facility] - 07/10/2019 12:49 AM EDT FASTING:YES FASTING: YES Resulting Agency Comment Performing Organization Information: ?Site ID: [id number] ?Name: [facility] ?Address: [address] [place] [address], [place] [address] ?Director: Shawn Goel MD Brenda Tony MD LAB BLOOD ORDERABLES [facility] [address] [place] [address], [place] [address] * (ABNORMAL) POCT Glycosylated Hemoglobin (Hb A1C) (04/30/2019 8:51 AM EDT) [facility] Hemoglobin A1C 7.6(A) 4.0 - 6.0 % Lot Number 1 Plant Pathologist Pass Pass Blood specimen (specimen) 04/30/2019 8:51 [...] approximately 13% higher for people identified as -Monegasque. eGFR Non- 26(L) > [place] = 60 [...] Performing Organization Information: ?Site ID: [id number] ?Name: [facility] ?Address: [address] [place] [address], [place] [address] ?Director: Shawn Goel MD Gurjit Baum MD LAB BLOOD ORDERABLES [facility] [address] [facility] 3rd Floor, [place] [address] * OPHTHALMOLOGY TESTING PROCEDURES (04/02/2019) External Provider HX AMB PROCEDURES * HX GASTROENTEROLOGY COLONOSCOPY-SCAN (12/10/2018) Gayatri George IT SUPPORT SPECIALIST HX AMB PROCEDURES * MM Breast tomosynthesis [...] MAMMOGRAPHY O RDERABLES * ThinPrep Pap Test (Plant Tender) with HPV Reflex (05/02/2018 12:00 AM EDT) [...] has been evaluated with computer assisted technology. Swine Genetics Researcher: JENNY [facility]unch [facility] Comment: [place], [place](ASCP) CT screening location: [address] ??[address] Comment [facility] Comment: EXPLANATORY NOTE: The Pap is [...] Performing Organization Information: ?Site ID: [id number] ?Name: [facility] ?Address: [address] [place] [address], [place] [address] ?Director: Shawn Goel MD Roselia Abernathy MD LAB AMB PATH/CYTO ORDERABLES Performing Organization Address [facility]/ZIP Co de Phone Number [facility] [address] [place] [address], [place] [address] * HIV 1/2 Ag/Ab CMIA Reflex to Confirmation (06/13/2017 9:51 AM EDT) HIV 1/2 Ag/Ab CMIA Negative Negative HOSPITAL LAB Comment: Results show no evidence of infection by HIV 1/2. If clinically indicated, repeat CMIA or test by nucleic acid amplification. Performed at [facility], [place], [place] ??CT License 0385 ??CLIA [id number] Blood specimen (specimen) 06/13/2017 9:51 AM EDT [...] Decision Thoroughly Discussed with: Patient Care Teams Brim Pouncing Machine Operator Relationship Specialty Start Date End Date Aging, [facility] 02/04/20 Ralph Wilcox MD [address] [place] [address] Gastroenterology 11/25/20 Otilia Paulson OD [address] [place] [address] Consulting Provider Optometry 11/25/20 Roselia Abernathy MD [address] [place] [address] Obstetrics and Gynecology 11/25/20
--- OUTSIDE RECORDS SUMMARY | 2025-01-01 15:28 | XMS_ITS | Encounter Summary ---
Author Organization [facility] Address [address] [place] [address] Care Team Providers Care J2Ee Android Developer Name Role Phone Gayatri George APRN Primary Care Provider [phone] Neva Velásquez RN Unavailable Albaro Kellogg MD Unavailable Aging, [facility] Unavailable Ralph Wilcox MD Unavailable [phone] Otilia Paulson OD Unavailable [phone] Roselia Abernathy MD Unavailable [phone] Gayatri George APRN Primary Care Provider Gayatri George APRN Unavailable [phone] Encounter Details Date Type Department Care Team (Late st Contact Info) Description 05/01/2019 Scanned Document [facility] Endocrinology [address] [phone] Qi Aponte PA [address] [place] [address] [id number] Social History Tobacco Use Types Packs/Day Years [...] on filedocumented in this encounter Care Teams J2Ee Android Developer Relationship Specialty Start Date End Date Gayatri George APRN PCP - General Family Medicine 07/17/18 11/17/20 Gayatri George APRN PCP - General Family Medicine 11/25/20 01/20/21 Gayatri George APRN [address] [place] [address] PCP - [place] Medicare Attributed 03/02/19 06/01/19 Neva Velásquez, RN [address] [address] [facility] Community Coating Supervisor 11/29/18 08/15/21 Albaro Kellogg MD [address] [place] [address] Physician Endocrinology 08/01/19 11/17/20 Aging, [facility] 02/04/20 Ralph Wilcox MD [address] [place] [address] Gastroenterology 11/25/20 Otilia Paulson OD [address] [place] [address] Consulting Provider Optometry 11/25/20 Roselia Abernathy MD [address] [place] [address] Obstetrics and Gynecology 11/25/20 documented as of this encounter
--- OUTSIDE RECORDS SUMMARY | 2025-01-01 15:28 | XMS_ITS | Encounter Summary ---
Author Organization [facility] Address [address] [place] [address] Care Team Providers Care Chip Silo Tender Name Role Phone Gayatri George APRN Primary Care Provider [phone] Neva Velásquez RN Unavailable Albaro Kellogg MD Unavailable A[facility], [facility] Unavailable Ralph Wilcox MD Unavailable [phone] Otilia Paulson OD Unavailable [phone] Roselia Abernathy MD Unavailable [phone] Gayatri George APRN Primary Care Provider Gayatri George APRN Unavailable [phone] Encounter Details Date Type Department Care Team (Late st Contact Info) Description 01/15/2019 Telephone [facility] Medical [facility] Neurology [address] [address] Any Devine PA 462 [facility] [address] [place], [place] [phone] Social History Tobacco Use Types Packs/Day Years [...] WITH YOU. PT CONTACT INFORMATION IS FOLLOWS [phone] PLEASE CALL YOU DO NOT HAVE AN APT UNTIL 01/31/2019 documented in this encounter Plan of Treatment Not on file documented as of this encounter Visit Diagnoses Not on filedocumented in this encounter Care Teams Chip Silo Tender Relationship Specialty Start Date End Date Gayatri George APRN PCP - General Family Medicine 07/17/18 11/17/20 Gayatri George APRN PCP - General Family Medicine 11/25/20 01/20/21 Gayatri George APRN [address] [place] [address] PCP - United Medicare Attributed 03/02/19 06/01/19 Neva Velásquez, RN [address] [facility] 4 [place] [address] [facility] Community Knifer Up 11/29/18 08/15/21 Albaro Kellogg MD [address] [place] [address] Physician Endocrinology 08/01/19 11/17/20 Aging, [facility] 02/04/20 Ralph Wilcox MD [address] [address] Gastroenterology 11/25/20 Otilia Paulson OD [address] [place] [address] Consulting Provider Optometry 11/25/20 Roselia Abernathy MD [address] [place] [address] Obstetrics and Gynecology 11/25/20 documented as of this encounter
--- OUTSIDE RECORDS SUMMARY | 2025-01-01 15:28 | XMS_ITS | Encounter Summary ---
Author Organization [facility] Address [address] [place] [address] Care Team Providers Care Events Administrative Assistant Name Role Phone Alison Aguirre APRN Primary Care Provider Soila Pineda Unavailable [phone] Gayatri George APRN Primary Care Provider Neva Velásquez RN Unavailable Albaro Kellogg MD Unavailable Aging, [employer] [facility] Unavailable [phone] Ralph Wilcox MD Unavailable [phone] Otilia Paulson OD Unavailable [phone] Roselia Abernathy MD Unavailable [phone] Gayatri George APRN Primary Care Provider [phone] Gayatri George APRN Unavailable [phone] Encounter Details Date Type Department Care Team (Late st Contact Info) Description 12/21/2017 Telephone [facility] [address] [place] [address] Juan Miguel Pollard MD [address] [place] [address] Social History Tobacco Use Types Packs/Day Years [...] on filedocumented in this encounter Care Teams Events Administrative Assistant Relationship Specialty Start Date End Date Alison Aguirre APRN PCP - General Internal Medicine 10/24/17 07/16/18 Gayatri George, BLOCK PILER [address] [place] [address] PCP - General Family Medicine 07/17/18 11/17/20 Gayatri George, BLOCK PILER [address] [place] [address] [phone] PCP - General Family Medicine 11/25/20 01/20/21 Gayatri George, BLOCK PILER [address] [place] [address] PCP - [place] Medicare Attributed 03/02/19 06/01/19 Soila Pineda, LAW PROFESSOR [address] [place] [place] [address] [facility] PCM+ Cleaning And Maintenance Worker 05/08/18 11/26/18 Neva Velásquez, RN [address] [place] [address] [place] [address] [facility] Community Bark Peeler 11/29/18 08/15/21 Albaro Kellogg MD [address] [place] [address] Physician Endocrinology 08/01/19 11/17/20 [facility] 02/04/20 Ralph Wilcox MD [address] [place] [address] Gastroenterology 11/25/20 Otilia Paulson OD [address] [place] [address] Consulting Provider Optometry 11/25/20 Roselia Abernathy MD [address] [place] [address] Obstetrics and Gynecology 11/25/20 documented as of this encounter
--- OUTSIDE RECORDS SUMMARY | 2025-01-01 15:28 | XMS_ITS | Encounter Summary ---
Author Organization [facility] Address [address] [place] [address] Care Team Providers Care Buffing Line Set Up Worker Name Role Phone Gayatri George APRN Primary Care Provider [phone] Neva Velásquez RN Unavailable Albaro Kellogg MD Unavailable Aging, [facility] Unavailable Ralph Wilcox MD Unavailable Otilia Paulson OD Unavailable Roselia Abernathy MD Unavailable [phone] Gayatri George APRN Primary Care Provider Encounter Details Date Type Department Care Team (Late st Contact Info) Description 09/11/2019 Scanned Document [address] [place] [phone] Gayatri George APRN [address] [place] [address] Social History Tobacco Use Types Packs/Day Years [...] on filedocumented in this encounter Care Teams Buffing Line Set Up Worker Relationship Specialty Start Date End Date Gayatri George APRN PCP - General Family Medicine 07/17/18 11/17/20 Gayatri George APRN PCP - General Family Medicine 11/25/20 01/20/21 Neva Velásquez, JAMAR 1290 [facility] 4 [place] [address] [facility] Community Calender Wind Up Tender 11/29/18 08/15/21 Albaro Kellogg MD [address] [place] [address] Physician Endocrinology 08/01/19 11/17/20 [facility] 02/04/20 Ralph Wilcox MD [address] [address] Gastroenterology 11/25/20 Otilia Paulson OD [address] [place] [address] Consulting Provider Optometry 11/25/20 Roselia Abernathy MD [address] [place] [address] Obstetrics and Gynecology 11/25/20 documented as of this encounter
--- OUTSIDE RECORDS SUMMARY | 2025-01-01 15:28 | XMS_ITS | Patient Health Record ---
Author Organization [facility] Address [address] [facility] [address] [place] [address] Care Team Providers Care Battery Vent Plug Inserter Name Role Phone RADHAKACIE PETERS Primary Care Provider Unavailab BRANDYN Jones Unavailable [phone] Allergies Allergen (clinical drug ingredient) Drug/Non Drug [...] needed Inhalation qid Active Ergocalciferol 1.25 MG (93579 UT) 1 capsule Orally once a month [...] W/U Status Risk Notes Problem Essential hypertension (77171878) Essential (primary) hypertension (I10) Active confirmed Problem 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) Type 2 diabetes mellitus with unspecified complications (E11.8) Active confirmed Problem Recurrent major depression (02112110) Major depressive disorder, recurrent, unspecified (F33.9) Active confirmed Problem Obstructive sleep apnea syndrome (disorder) (36679854) Obstructive sleep apnea (adult) (pediatric) (G47.33) Active confirmed Problem Chronic pain syndrome (555071427) Chronic pain syndrome (G89.4) Active confirmed Problem Heart failure (07384211) Heart failure, unspecified (I50.9) Active confirmed Problem Uncomplicated asthma (disorder) (790898417) Unspecified asthma, uncomplicated (J45.909) Active confirmed Problem Gastro-esophageal reflux disease without esophagitis (508787787) Gastro-esophageal reflux disease without esophagitis (K21.9) Active confirmed Problem Chronic kidney disease (881003761) Chronic kidney disease, unspecified (N18.9) Active confirmed Plan Of Treatment Pending Test Test Name Order Date ANTI-HEPATITIS C 12/07/2020 HEP. B SURF. AG 12/07/2020 SYPHILIS TESTING 12/07/2020 HIV AB-AG 4TH GENERATION 12/07/2020 MM Digital Screening Mammogram 3D 2020 Insurance Providers Payer Name Payer Address Payer Phone Subscriber Number Group Number Insured Name Patient Relationship to Insured Coverage Start Date Coverage End Date [facility] [address] [address] [place] [address] [id number] VIET BLAKE Self - patient is the [...] Amputation Hospitalization History Reason Date(Month/Year) [place]F & [place] 2020
--- OUTSIDE RECORDS SUMMARY | 2025-01-01 15:28 | XMS_ITS | Encounter Summary ---
Author Organization [facility] Address [address] [place] [address] Care Team Providers Care Chocolate Coater Name Role Phone Gayatri George APRN Primary Care Provider [phone] Neva Velásquez RN Unavailable Albaro Kellogg MD Unavailable Aging, [facility] Unavailable Ralph Wilcox MD Unavailable [phone] Otilia Paulson OD Unavailable [phone] Roselia Abernathy MD Unavailable [phone] Gayatri George APRN Primary Care Provider Encounter Details Date Type Department Care Team (Late st Contact Info) Description 09/18/2019 Scanned Document [address] [place] [phone] Gayatri George APRN [address] [place] [address] Social History Tobacco Use Types Packs/Day Years [...] on filedocumented in this encounter Care Teams Chocolate Coater Relationship Specialty Start Date End Date Gayatri George APRN PCP - General Family Medicine 07/17/18 11/17/20 Gayatri George APRN PCP - General Family Medicine 11/25/20 01/20/21 Neva Velásquez, JAMAR 1290 [facility] 4 [place] [address] [facility] Community Golf Club Head Inspector 11/29/18 08/15/21 Albaro Kellogg MD [address] [place] [address] Physician Endocrinology 08/01/19 11/17/20 [facility] [place] [facility] 02/04/20 Ralph Wilcox MD [address] [address] Gastroenterology 11/25/20 Otilia Paulson OD [address] [place] [address] Consulting Provider Optometry 11/25/20 Roselia Abernathy MD [address] [place] [address] Obstetrics and Gynecology 11/25/20 documented as of this encounter
--- OUTSIDE RECORDS SUMMARY | 2025-01-01 15:28 | XMS_ITS | Encounter Summary ---
Author Organization [facility] Address [address] [place] [address] Care Team Providers Care Rv Detailer Name Role Phone Gayatri George APRN Primary Care Provider [phone] Neva Velásquez RN Unavailable Albaro Kellogg MD Unavailable Aging, [facility] Unavailable [phone] Ralph Wilcox MD Unavailable [phone] Otilia Paulson OD Unavailable [phone] Roselia Abernathy MD Unavailable [phone] Gayatri George ADULT CAREGIVER Primary Care Provider Gayatri George APRN Unavailable [phone] Reason for Visit * Reason Comments Medication Refill Encounter Details Date Type Department Care Team (Late st Contact Info) Description 01/28/[address] [place] [address] [phone] Gayatri George, ADULT CAREGIVER [address] [place] [address] Insomnia, unspecified type Social History Tobacco Use [...] type documented in this encounter Care Teams Rv Detailer Relationship Specialty Start Date End Date Gayatri George APRN PCP - General Family Medicine 07/17/18 11/17/20 Gayatri George APRN PCP - General Family Medicine 11/25/20 01/20/21 Gayatri George APRN 30 [place] [address] PCP - United Medicare Attributed 03/02/19 06/01/19 Neva Velásquez, JAMAR [address] [facility] 4 [place] [address] [facility] Community Fruit I Farmworker 11/29/18 08/15/21 Albaro Kellogg MD [address] [place] [address] Physician Endocrinology 08/01/19 11/17/20 [facility], [place] [facility] 02/04/20 Ralph Wilcox MD [address] [place] [address] Gastroenterology 11/25/20 Otilia Paulson OD [address] [place] [address] Consulting Provider Optometry 11/25/20 Roselia Abernathy MD [address] [place] [address] Obstetrics and Gynecology 11/25/20 documented as of this encounter
--- OUTSIDE RECORDS SUMMARY | 2025-01-01 15:29 | XMS_ITS | Encounter Summary ---
Author Organization [facility] Address [address] [place] [address] Care Team Providers Care Stave Cutting Supervisor Name Role Phone Alison Aguirre APRN Primary Care Provider Soila Pineda COPPER ROLLER HANDLER PRINTING Unavailable [phone] Gayatri George APRN Primary Care Provider Neva Velásquez RN Unavailable Albaro Kellogg MD Unavailable Aging, [place] For [facility] Unavailable [phone] Ralph Wilcox MD Unavailable [phone] Otilia Paulson OD Unavailable [phone] Roselia Abernathy MD Unavailable [phone] Gayatri George APRN Primary Care Provider Gayatri George APRN Unavailable [phone] Encounter Details Date Type Department Care Team (Late st Contact Info) Description 06/13/2018 Scanned Document [address] [phone] Alison Aguirre APRN [address] [place] [address] Social History Tobacco Use Types Packs/Day Years [...] on filedocumented in this encounter Care Teams Stave Cutting Supervisor Relationship Specialty Start Date End Date Alison Aguirre APRN PCP - General Internal Medicine 10/24/17 07/16/18 Gayatri George, ANA [address] [address] PCP - General Family Medicine 07/17/18 11/17/20 Gayatri George, TAILOR GARMENT FITTER [address] [employer] [address] [id number] PCP - General Family Medicine 11/25/20 01/20/21 Gayatri George, TAILOR GARMENT FITTER 30 [place] [address] PCP - United Medicare Attributed 03/02/19 06/01/19 Soila Pineda MSW [address] [employer] [address] [place] [address] [facility]+ Deaf Interpreter 05/08/18 11/26/18 Neva Velásquez, RN [address] [employer] [address] [address] [facility] Community Pottery Machine Operator 11/29/18 08/15/21 Albaro Kellogg MD [address] [place] [address] Physician Endocrinology 08/01/19 11/17/20 [facility], [facility] 02/04/20 Ralhp Wilcox MD [address] [address] Gastroenterology 11/25/20 Otilia Paulson OD [address] [place] [address] Consulting Provider Optometry 11/25/20 Roselia Abernathy MD [address] [place] [address] Obstetrics and Gynecology 11/25/20 documented as of this encounter
--- OUTSIDE RECORDS SUMMARY | 2025-01-01 15:29 | XMS_ITS | Encounter Summary ---
Author Organization [facility] Address [address] [place] [address] Care Team Providers Care Paraffiner Name Role Phone Alison Aguirre APRN Primary Care Provider Soila Pineda CRM CAMPAIGN MANAGER Unavailable [phone] Gayatri George APRN Primary Care Provider Neva Velásquez RN Unavailable Albaro Kellogg MD Unavailable Aging, [place] [facility] Unavailable [phone] Ralph Wilcox MD Unavailable [phone] Otilia Paulson OD Unavailable [phone] Roselia Abernathy MD Unavailable [phone] Gayatri George APRN Primary Care Provider Gayatri George APRN Unavailable [phone] Encounter Details Date Type Department Care Team (Late st Contact Info) Description 11/28/2017 Scanned Document [address] [phone] Alison Aguirre APRN [address] [place] [address] Social History Tobacco Use Types Packs/Day Years [...] on filedocumented in this encounter Care Teams Paraffiner Relationship Specialty Start Date End Date Alison Aguirre APRN PCP - General Internal Medicine 10/24/17 07/16/18 Gayatri George, ANA [address] [place] [address] PCP - General Family Medicine 07/17/18 11/17/20 Gayatri George, BLACK ASH WORKER [address] [employer] [address] [phone] PCP - General Family Medicine 11/25/20 01/20/21 Gayatri George, BLACK ASH WORKER 30 [place] [address] PCP - United Medicare Attributed 03/02/19 06/01/19 Soila Pineda MSW [address] [employer] [address] [place] [address] [facility]+ Senior Specialist 05/08/18 11/26/18 Neva Velásquez, RN [address] [employer] [address] [address] [facility] Community Mason Liner 11/29/18 08/15/21 Albaro Kellogg MD [address] [place] [address] Physician Endocrinology 08/01/19 11/17/20 [facility], [facility] 02/04/20 Ralph Wilcox MD [address] [address] Gastroenterology 11/25/20 Otilia Paulson OD [address] [place] [address] Consulting Provider Optometry 11/25/20 Roselia Abernathy MD [address] [place] [address] Obstetrics and Gynecology 11/25/20 documented as of this encounter
--- OUTSIDE RECORDS SUMMARY | 2025-01-01 15:29 | XMS_ITS | Encounter Summary ---
Author Organization [facility] Address [address] [place] [address] Care Team Providers Care Armature Winder Repair Helper Name Role Phone Alison Aguirre APRN Primary Care Provider [phone] Gurjit Baum MD Primary Care Provider [phone] Alison Aguirre APRN Primary Care Provider [phone] Soila Pineda Unavailable [phone] Gayatri George APRN Primary Care Provider [phone] Neva Velásquez RN Unavailable Albaro Kellogg MD Unavailable Aging, [facility] Unavailable [phone] Ralph Wilcox MD Unavailable [phone] Otilia Paulson OD Unavailable [phone] Roselia Abernathy MD Unavailable [phone] Gayatri George APRN Primary Care Provider Gayatri George APRN Unavailable [phone] Encounter Details Date Type Department Care Team (Late st Contact Info) Description 08/07/2017 Scanned Document [address] [phone] Alison Aguirre APRN [address] [place] [address] Social History Tobacco Use Types Packs/Day Years [...] on filedocumented in this encounter Care Teams Armature Winder Repair Helper Relationship Specialty Start Date End Date Alison Aguirre APRN PCP - General Internal Medicine 06/06/17 10/15/17 Gurjit Baum MD [address] [place] [address] PCP - General Internal Medicine 10/16/17 10/23/17 Alison Aguirre APRN PCP - General Internal Medicine 10/24/17 07/16/18 Gayatri George APRN [address] [place] [address] PCP - General Family Medicine 07/17/18 11/17/20 Gayatri George APRN [address] [place] [address] PCP - General Family Medicine 11/25/20 01/20/21 Gayatri George APRN [address] [place] [address] PCP - United Medicare Attributed 03/02/19 06/01/19 Soila Pineda, MAGAZINE JOURNALIST [address] [employer] [address] [place] [address] [facility]+ Shingler 05/08/18 11/26/18 Neva Velásquez, RN [address] [employer] [address] [place] [address] [facility] Community Security Operations Center Operator 11/29/18 08/15/21 Albaro Kellogg MD [address] [place] [address] Physician Endocrinology 08/01/19 11/17/20 Aging, [facility] 02/04/20 Ralph Wilcox MD [address] [place] [address] Gastroenterology 11/25/20 Otilia Paulson OD [address] [place] [address] Consulting Provider Optometry 11/25/20 Roselia Abernathy MD [address] [place] [address] Obstetrics and Gynecology 11/25/20 documented as of this encounter
--- OUTSIDE RECORDS SUMMARY | 2025-01-01 15:29 | XMS_ITS | Encounter Summary ---
Author Organization [facility] Address [address] [place] [address] Care Team Providers Care Calender Machine Operator Helper Name Role Phone Soila Pineda Unavailable [phone] Gayatri George APRN Primary Care Provider [phone] Neva Velásquez RN Unavailable Albaro Kellogg MD Unavailable Aging, [place] [facility] Unavailable [phone] Ralph Wilcox MD Unavailable [phone] Otilia Paulson OD Unavailable [phone] Roselia Abernathy MD Unavailable [phone] Gayatri George APRN Primary Care Provider Gayatri George APRN Unavailable [phone] Encounter Details Date Type Department Care Team (Late st Contact Info) Description 10/10/2018 Scanned Document [facility] [address] [place] [address] Pulmonary, Scan Social History Tobacco Use Types [...] on filedocumented in this encounter Care Teams Calender Machine Operator Helper Relationship Specialty Start Date End Date Gayatri George, ANA [address] [facility] 4 [place] [address] PCP - General Family Medicine 07/17/18 11/17/20 Gayatri George, RUG UNDERLAY MACHINE OPERATOR [address] [address] PCP - General Family Medicine 11/25/20 01/20/21 Gayatri George, RUG UNDERLAY MACHINE OPERATOR 30 [place] [address] PCP - United Medicare Attributed 03/02/19 06/01/19 Soila Pineda, FISHER QUAHOG [address] [facility] 4 [place] [address] ICP PCMH+ Nursing Coordinator 05/08/18 11/26/18 Neva Velásquez, RN [address] [facility] 4 [place] [address] ICP Community Wastewater Plant Civil Engineer 11/29/18 08/15/21 Albaro Kellogg MD [address] [place] [address] Physician Endocrinology 08/01/19 11/17/20 Aging, [facility] 02/04/20 Ralph Wilcox MD [address] [place] [address] Gastroenterology 11/25/20 Otilia Paulson OD [address] [place] [address] Consulting Provider Optometry 11/25/20 Roselia Abernathy MD [address] [place] [address], [place] [address] Obstetrics and Gynecology 11/25/20 documented as of this encounter
--- OUTSIDE RECORDS SUMMARY | 2025-01-01 15:29 | XMS_ITS | Encounter Summary ---
Author Organization [facility] Address [address] [place] [address] Care Team Providers Care Medical Communication Specialist Name Role Phone [facility], [place] [facility] Unavailable [phone] Ralph Wilcox MD Unavailable [phone] Otilia Paulson OD Unavailable [phone] Roselia Abernathy MD Unavailable [phone] Encounter Details Date Type Department Care Team (Late st Contact Info) Description 09/26/2024 Telephone [facility] [address] [place] [phone] Garry Chung Social History Tobacco Use Types [...] filedocumented in this encounter Care Teams Medical Communication Specialist Relationship Specialty Start Date End Date [facility], [facility] 02/04/20 Ralph Wilcox MD [address] [place] [address] Gastroenterology 11/25/20 Otilia Paulson OD [address] [place] [address] Consulting Provider Optometry 11/25/20 Roselia Abernathy MD [address] [place] [address] Obstetrics and Gynecology 11/25/20 documented as of this encounter
--- OUTSIDE RECORDS SUMMARY | 2025-01-01 15:29 | XMS_ITS | Encounter Summary ---
Author Organization [facility] Address [address] [place] [address] Care Team Providers Care Operational Risk Manager Name Role Phone Alison Aguirre APRN Primary Care Provider [phone] Soila Pineda Unavailable [phone] Gayatri George APRN Primary Care Provider Neva Velásquez RN Unavailable Albaro Kellogg MD Unavailable Aging, [place] [facility] Unavailable [phone] Ralph Wilcox MD Unavailable [phone] Otilia Paulson OD Unavailable [phone] Roselia Abernathy MD Unavailable [phone] Gayatri George APRN Primary Care Provider Gayatri George APRN Unavailable [phone] Encounter Details Date Type Department Care Team (Late st Contact Info) Description 02/27/2018 Scanned Document [facility] [place] [address] [facility] [address] [place] [address] Jorge Quiñones, ROSHAN 201 [facility] [address] [place] [address] Social History Tobacco Use Types Packs/Day Years [...] on filedocumented in this encounter Care Teams Operational Risk Manager Relationship Specialty Start Date End Date Alison Aguirre APRN PCP - General Internal Medicine 10/24/17 07/16/18 Gayatri George, ANA [address] [place] [address] PCP - General Family Medicine 07/17/18 11/17/20 Gayatri George, DOOR AND ARRIVAL ATTENDANT [address] [id number] PCP - General Family Medicine 11/25/20 01/20/21 Gayatri George, DOOR AND ARRIVAL ATTENDANT 30 [place] [address] PCP - United Medicare Attributed 03/02/19 06/01/19 Soila Pineda, FOUNDATION ASSISTANT [address] [place] [address] [facility]+ Food Critic 05/08/18 11/26/18 Neva Velásquez, RN [address] [place] [address] [facility] Community Paper Cutter 11/29/18 08/15/21 Albaro Kellogg MD [address] [place] [address] Physician Endocrinology 08/01/19 11/17/20 [facility], [facility] 02/04/20 Ralph Wilcox MD [address] [place] [address] Gastroenterology 11/25/20 Otilia Paulson OD [address] [place] [address] Consulting Provider Optometry 11/25/20 Roselia Abernathy MD [address] [place] [address] Obstetrics and Gynecology 11/25/20 documented as of this encounter
--- OUTSIDE RECORDS SUMMARY | 2025-01-01 15:29 | XMS_ITS | Encounter Summary ---
Author Organization [facility] Address [address] [place] [address] Care Team Providers Care Steward/Stewardess Lounge Name Role Phone Alison Aguirre APRN Primary Care Provider [phone] Gurjit Baum MD Primary Care Provider [phone] Alison Aguirre APRN Primary Care Provider [phone] Soila Pineda Unavailable [phone] Gayatri George APRN Primary Care Provider Neva Velásquez RN Unavailable Albaro Kellogg MD Unavailable Aging, [facility] Unavailable [phone] Ralph Wilcox MD Unavailable [phone] Otilia Paulson OD Unavailable [phone] Roselia Abernathy MD Unavailable [phone] Gayatri George APRN Primary Care Provider [phone] Gayatri George APRN Unavailable [phone] Encounter Details Date Type Department Care Team (Late st Contact Info) Description 09/18/2017 Scanned Document [address] [place] [address] Provider, Generic Social History Tobacco Use Types [...] on filedocumented in this encounter Care Teams Steward/Stewardess Lounge Relationship Specialty Start Date End Date Alison Aguirre APRN PCP - General Internal Medicine 06/06/17 10/15/17 Gurjit Baum MD [address] [place] [address] PCP - General Internal Medicine 10/16/17 10/23/17 Alison Aguirre APRN PCP - General Internal Medicine 10/24/17 07/16/18 Gayatri George APRN [address] [place] [address] PCP - General Family Medicine 07/17/18 11/17/20 Gayatri George APRN [address] 4 [place] [address] PCP - General Family Medicine 11/25/20 01/20/21 Gayatri George APRN 30 [place] [address] PCP - United Medicare Attributed 03/02/19 06/01/19 Soila Pineda, FIELD SALES REPRESENTATIVE [address] [place] [address] ICP PCMH+ Dairy Quality Assurance Officer 05/08/18 11/26/18 Neva Velásquez, RN [address] [place] [address] ICP Community Fence Erector 11/29/18 08/15/21 Albaro Kellogg MD [address] [place] [address] Physician Endocrinology 08/01/19 11/17/20 Aging, [facility] 02/04/20 Ralph Wilcox MD [address] [place] [address] Gastroenterology 11/25/20 Otilia Paulson OD [address] [place] [address] Consulting Provider Optometry 11/25/20 Roselia Abernathy MD [address] [place] [address] Obstetrics and Gynecology 11/25/20 documented as of this encounter
--- OUTSIDE RECORDS SUMMARY | 2025-01-01 15:29 | XMS_ITS | Encounter Summary ---
Author Organization [facility] Address [address] [place] [address] Care Team Providers Care Fare Register Repairer Name Role Phone Gayatri George APRN Primary Care Provider [phone] Neva Velásquez RN Unavailable Albaro Kellogg MD Unavailable Aging, [facility] Unavailable Ralph Wilcox MD Unavailable Otilia Paulson OD Unavailable [phone] Roselia Abernathy MD Unavailable [phone] Gayatri George INFORMATION SYSTEMS PROFESSOR Primary Care Provider Gayatri George APRN Unavailable [phone] Reason for Visit * Reason Comments Medication Refill Encounter Details Date Type Department Care Team (Late st Contact Info) Description 03/23/[address] [place] [phone] Gayatri George, INFORMATION SYSTEMS PROFESSOR [address] [place] [address] Depression, unspecified depression type (Primary Dx) Social [...] Primary documented in this encounter Care Teams Fare Register Repairer Relationship Specialty Start Date End Date Gayatri George APRN PCP - General Family Medicine 07/17/18 11/17/20 Gayatri George APRN PCP - General Family Medicine 11/25/20 01/20/21 Gayatri George APRN 30 [place] [address] PCP - United Medicare Attributed 03/02/19 06/01/19 Neva Velásquez, RN [address] [address] [facility] Community Mail Carrier And Clerk 11/29/18 08/15/21 Albaro Kellogg MD [address] [place] [address] Physician Endocrinology 08/01/19 11/17/20 Aging, [place] [facility] 02/04/20 Ralph Wilcox MD [address] [place] [address] Gastroenterology 11/25/20 Otilia Paulson OD [address] [place] [address] Consulting Provider Optometry 11/25/20 Roselia Abernathy MD [address] [place] [address] Obstetrics and Gynecology 11/25/20 documented as of this encounter
--- OUTSIDE RECORDS SUMMARY | 2025-01-01 15:29 | XMS_ITS | Encounter Summary ---
Author Organization [facility] Address [address] [place] [address] Care Team Providers Care Magnet Placer Name Role Phone Gayatri George APRN Primary Care Provider [phone] Neva Velásquez RN Unavailable Albaro Kellogg MD Unavailable Aging, [facility] Unavailable Ralph Wilcox MD Unavailable [phone] Otilia Paulson OD Unavailable [phone] Roselia Abernathy MD Unavailable [phone] Gayatri George APRN Primary Care Provider [phone] Gayatri George APRN Unavailable [phone] Encounter Details Date Type Department Care Team (Late st Contact Info) Description 02/14/2019 Scanned Document [facility] [address] [place] [phone] Ralph Wilcox MD [address] [place] [address], [place] [address] Social History Tobacco Use Types Packs/Day Years [...] on filedocumented in this encounter Care Teams Magnet Placer Relationship Specialty Start Date End Date Gayatri George, ANA PCP - General Family Medicine 07/17/18 11/17/20 Gayatri George, DIVIDING MACHINE OPERATOR HELPER PCP - General Family Medicine 11/25/20 01/20/21 Gayatri George, DIVIDING MACHINE OPERATOR HELPER [address] [place] [address] PCP - United Medicare Attributed 03/02/19 06/01/19 Neva Velásquez, JAMAR [address] [facility] 4 [place] [address] [facility] Community Unit Operator 11/29/18 08/15/21 Albaro Kellogg MD [address] [place] [address] Physician Endocrinology 08/01/19 11/17/20 Aging, [place] [facility] 02/04/20 Ralph Wilcox MD [address] [address] Gastroenterology 11/25/20 Otilia Paulosn OD [address] [place] [address] Consulting Provider Optometry 11/25/20 Roselia Abernathy MD [address] [place] [address] Obstetrics and Gynecology 11/25/20 documented as of this encounter
--- OUTSIDE RECORDS SUMMARY | 2025-01-01 15:29 | XMS_ITS | Encounter Summary ---
Author Organization [facility] Address [address] [place] [address] Care Team Providers Care Drug Discovery Informatics Specialist Name Role Phone Eli Dill Primary Care Provider Reason for Visit * Reason Comments Establish Care gerd Encounter Details Date Type Department Care Team ([facility] st Contact Info) Description 12/30/2024 1:20 PM EDT Consult Gastroenterology - [address] [place] [id number] Gabriela Fisher PA 299 [facility] [address] [place], [place] [id number] History of colon polyps (Primary Dx); Gastroesophageal reflux disease, unspecified whether esophagitis present; Iron deficiency anemia, unspecified iron deficiency anemia type Social History Tobacco Use Types Packs/Day Years Used Date Smoking Tobacco: Former Smokeless Tobacco: Never Alcohol Use Standard Drinks/Week Comments Never 0 (1 standard drink = 0.6 oz pur e alcohol) Comments Unknown Sex and Gender Information Value Date Recorded Sex Assigned at Not on file Legal Sex Female 8:47 PM EST Gender Identity Not on file Sexual Orientation Not on file documented as of this encounter Last Filed Vital Signs Vital Sign Reading Time Taken Comments Blood Pressure - - Pulse - - Temperature - - Respiratory Rate - - Oxygen Saturation - - Inhaled Oxygen Concentration - - Weight 91.6 kg (202 lb) 12/30/2024 1:09 PM EDT Height 167.6 cm (5' 6 ) 12/30/2024 1:09 PM EDT Body Mass Index 32.6 12/30/2024 1:09 PM EDT documented in this encounter Progress Notes * ELENO Catalan - 12/30/2024 1:20 PM EDT Subjective Last Colononscopy/EGD: Colon/EGD3/2018 - [place], [place] repeat Colon 01/2019 due to prep 11/2018 - TA x1 5mm& serrated polyp x1 5mm (5yr); Capsule endoscopy 03/2019 - small bowel AVMs HPI: Natalie Cutler is a 64 y.o. old female who was referred to us by Ronaldo Anderson presents to the gastroenterology department today for anemia and GERD. She has a history of chronic iron deficient anemia felt to be multifactorial in origin. She had a thorough workup in 2018 including capsule endoscopy. 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 She had 2 small colon polypsremoved and a 5-year follow-up colonoscopy was recommended. The capsule endoscopy noted small bowelAVMs. She feels that her reflux is stable on pantoprazole 40 mg once a day. She has longstanding constipation. She takes a generic form of MiraLAX approximately once a week. This has been working well for her. She is followed for her chronic kidney disease. She is due to have cardiac echo on January 01 due to her history of CHF. Overall she believes that she is stable from both renal and cardiac standpoint. She is an insulin-dependent diabetic. She denied a family history of colon cancer or colon polyps. She denied hematochezia and melena. She denied unintentional weight loss or dysphagia. Review of Systems Constitutional: Negative. Respiratory: Negative. Cardiovascular: Negative. Gastrointestinal: Positive for constipation. Genitourinary: Negative. PROBLEM LIST: There is no problem list on file for this patient. PAST MEDICAL HISTORY: Past Medical History: Diagnosis Date Abscess of neck 03/07/2022 DX:Abscess of neck Acute kidney injury superimposed on chronic kidney disease (CMS/HCC) DX:Acute kidney injury superimposed on chronic kidney disease (HCC) Anemia DX:Anemia Asthma DX:Asthma CKD (chronic kidney disease), stage IV (CMS/HCC) DX:CKD (chronic kidney disease), stage IV (HCC); COMMENT: baseline creatinine 2.4 Constipation DX:Constipation COPD (chronic obstructive pulmonary disease) (CMS/HCC) DX:COPD (chronic obstructive pulmonary disease) (HCC); COMMENT: not oxygen dependent Depression with anxiety DX:Depression with anxiety Diabetes mellitus (CMS/HCC) DX:Diabetes mellitus (HCC) Diabetic neuropathy (CMS/HCC) DX:Diabetic neuropathy ([facility]) Diastolic CHF ([facility]) DX:Diastolic CHF ([facility]) DVT prophylaxis DX:DVT prophylaxis Gait instability DX:Gait instability GERD (gastroesophageal reflux disease) DX:GERD (gastroesophageal reflux disease) History of CVA (cerebrovascular accident) DX:History of CVA (cerebrovascular accident) HLD (hyperlipidemia) DX:HLD (hyperlipidemia) HTN (hypertension) DX:HTN (hypertension) Insomnia DX:Insomnia Obesity DX:Obesity JOHN (obstructive sleep apnea) DX:JOHN (obstructive sleep apnea) Osteoarthritis DX:Osteoarthritis; COMMENT: affecting multiple joints QT prolongation DX:QT prolongation Severe anemia DX:Severe anemia Spinal stenosis DX:Spinal stenosis T2DM (type 2 diabetes mellitus) ([facility]) DX:T2DM (type 2 diabetes mellitus) ([facility]) PAST SURGICAL HISTORY: Past Surgical History: Procedure Laterality Date BYPASS GRAFT PROCEDURE: MI AMPUTATION TOE METATARSOPHALANGEAL JOINT; COMMENT: x3 OTHER SURGICAL HISTORY PROCEDURE: ---- OTHER ----; COMMENT: Reduction mammoplasty OTHER SURGICAL HISTORY PROCEDURE: ---- OTHER ----; COMMENT: Abdominoplasty SOCIAL HISTORY: Social History Tobacco Use Smoking status: Former Smokeless tobacco: Never Substance Use Topics Alcohol use: Never FAMILY HISTORY: Family History Problem Relation Name Age of Onset Diabetes Mother Heart failure Mother of [place] in her 70s Hypertension Mother ACTIVE MEDICATIONS: Current Outpatient Medications Medication Sig Dispense Refill acetaminophen (TYLENOL) 325 mg tablet Take 2 tablets (650 mg total) by mouth. aspirin 81 mg EC tablet Take 1 tablet (81 mg total) by mouth. atorvastatin (LIPITOR) 40 mg tablet Take 1 tablet (40 mg total) by mouth. bumetanide (BUMEX) 2 mg tablet Take 1 tablet (2 mg total) by mouth 1 (one) time each day. buPROPion XL (WELLBUTRIN XL) 150 mg 24 hr tablet Take 1 tablet (150 mg total) by mouth. calcitrioL (ROCALTROL) 0.25 mcg capsule Take 1 capsule (0.25 mcg total) by mouth 1 (one) time each day. cariprazine (Vraylar) 1.5 mg capsule Take 1 capsule (1.5 mg total) by mouth 1 (one) time each day. carvediloL (COREG) 6.25 mg tablet Take 1 tablet (6.25 mg total) by mouth. clopidogreL (PLAVIX) 75 mg tablet Take 1 tablet (75 mg total) by mouth 1 (one) time each day. cyclobenzaprine (FLEXERIL) 10 mg tablet Take 1 tablet (10 mg total) by mouth 3 (three) times a day if needed. desvenlafaxine 100 mg tablet extended release 24 hr Take 100 mg by mouth. docusate sodium (COLACE) 100 mg capsule Take 1 capsule (100 mg total) by mouth. dulaglutide (Trulicity) 4.5 mg/0.5 mL pen injector injection Inject under the skin. ferrous sulfate 325 mg (65 mg elemental iron) tablet Take 1 tablet (325 mg total) by mouth 2 (two) times a day. fluticasone-salmeterol (ADVAIR DISKUS) 250-50 mcg/dose diskus inhaler Inhale 1 puff by mouth. gabapentin (NEURONTIN) 100 mg capsule Take 1 capsule (100 mg total) by mouth 2 (two) times a day. gabapentin (NEURONTIN) 600 mg tablet Take 1 tablet (600 mg total) by mouth. hydrALAZINE (APRESOLINE) 25 mg tablet Take 1 tablet (25 mg total) by mouth. insulin glargine (LANTUS) 100 unit/mL injection Inject under the skin. isosorbide mononitrate (IMDUR) 30 mg 24 hr tablet TAKE ONE TABLET BY MOUTH EVERY DAY ^1R1 lurasidone (LATUDA) 20 mg tablet Take by mouth 1 (one) time each day. montelukast (SINGULAIR) 10 mg tablet Take 1 tablet (10 mg total) by mouth at bedtime. pantoprazole (PROTONIX) 40 mg EC tablet Take 1 tablet (40 mg total) by mouth 1 (one) time each day. venlafaxine 225 mg 24 hr tablet Take 1 tablet (225 mg total) by mouth 1 (one) time each day. diclofenac (VOLTAREN) 1 % topical gel Apply topically. (Patient not taking: Reported on 12/30/2024) lactulose (CHRONULAC) solution Take 15 mL (10 g total) by mouth. (Patient not taking: Reported on 12/30/2024) traZODone (DESYREL) 100 mg tablet Take 1 tablet (100 mg total) by mouth. (Patient not taking: Reported on 12/30/2024) No current facility-administered medications for this visit. ALLERGIES: Allergies Allergen Reactions Sulfa (Sulfonamide Antibiotics) Other and Swelling Baclofen Other Aphasia Aphasia Wt Readings from Last 1 Encounters: 12/30/24 1309 91.6 kg (202 lb) Physical Exam Constitutional: Appearance: Normal appearance. Comments: Examined in chair Pt with walker for support HENT: Head: Normocephalic. Cardiovascular: Rate and Rhythm: Normal rate and regular rhythm. Pulmonary: Effort: Pulmonary effort is normal. Breath sounds: Normal breath sounds. Abdominal: General: Bowel sounds are normal. There is no distension. Palpations: Abdomen is soft. There is no mass. Tenderness: There is no abdominal tenderness. There is no guarding or rebound. Skin: General: Skin is warm. Neurological: Mental Status: She is alert and oriented to person, place, and time. Psychiatric: Mood and Affect: Mood normal. Behavior: Behavior normal. IMPRESSION: 1. History of colon polyps 2. Gastroesophageal reflux disease, unspecified whether esophagitis present 3. Iron deficiency anemia, unspecified iron deficiency anemia type Assessment/Plan Assessment & Plan History of colon polyps Last colon 2019 [place], [place] Surveillance due Gastroesophageal reflux disease, unspecified whether esophagitis present Stable with pantoprazole 40 mg qd Iron deficiency anemia, unspecified iron deficiency anemia type Chronic. Work-up 2019 [place], [place] Colon polyps x2 (5mm)/EGD unremarkable/small bowel AVMs on capsule without active bleeding Colon/EGD - hx polyps/GERD/chronic anemia [facility] 1/2 dose Lantus day prior Skip Trulicity 7 days prior Hold clopidogrel 7 days prior 09 pt Colonoscopy and EGD reviewed with patient. Risks discussed including bleeding, perforation and missed lesions. There is always a chance surgery or transfusion could be required. Prep discussed with patient. Risks of anesthesia reviewed. Patient advised will need a ride home, not to have liquids forat least 3 hours prior to the procedure. ELENO Catalan 5:21 PM EDT documented in this encounter Plan of Treatment Upcoming Encounters Date Type Department Care Team (Late st Contact Info) Description 03/03/2025 12:30 PM EDT Appointment [facility] Endoscopy [address] [place] [address] Corina Muse MD 299 [facility] [address] [place] [address] documented as of this encounter Visit Diagnoses Diagnosis History of colon polyps- Primary Gastroesophageal reflux disease, unspecified whether esophagitis present Iron deficiency anemia, unspecified iron deficiency anemia type documented in this encounter Care Teams Drug Discovery Informatics Specialist Relationship Specialty Start Date End Date Eli Dill PA 36[address] [facility] [address] [place] [address] PCP - General Cardiology 12/09/24 documented as of this encounter
--- OUTSIDE RECORDS SUMMARY | 2025-01-01 15:29 | XMS_ITS | Encounter Summary ---
Author Organization [facility] Address [address] [place] [address] Care Team Providers Care Skeiner Name Role Phone Alison Aguirre APRN Primary Care Provider [phone] Gurjit Baum MD Primary Care Provider [phone] Alison Aguirre APRN Primary Care Provider [phone] Soila Pineda Unavailable [phone] Gayatri George APRN Primary Care Provider Neva Velásquez RN Unavailable Albaro Kellogg MD Unavailable Aging, [facility] Unavailable [phone] Ralph Wilcox MD Unavailable [phone] Otilia Paulson OD Unavailable [phone] Roselia Abernathy MD Unavailable [phone] Gayatri George APRN Primary Care Provider [phone] Gayatri George APRN Unavailable [phone] Encounter Details Date Type Department Care Team (Late st Contact Info) Description 08/16/2017 Scanned Document [address] [phone] Alison Aguirre APRN [address] [place] [address] Social History Tobacco Use Types Packs/Day Years [...] on filedocumented in this encounter Care Teams Skeiner Relationship Specialty Start Date End Date Alison Aguirre APRN PCP - General Internal Medicine 06/06/17 10/15/17 Gurjit Baum MD [address] [place] [address] PCP - General Internal Medicine 10/16/17 10/23/17 Alison Aguirre APRN PCP - General Internal Medicine 10/24/17 07/16/18 Gayatri Geogre APRN [address] [place] [address] PCP - General Family Medicine 07/17/18 11/17/20 Gayatri George APRN [address] [place] [address] PCP - General Family Medicine 11/25/20 01/20/21 Gayatri George APRN [address] [place] [address] PCP - [employer] Medicare Attributed 03/02/19 06/01/19 Soila Pineda, POSTAL SUPERINTENDENT [address] [place] [address] ICP PCMH+ Launderette Attendant 05/08/18 11/26/18 Neva Velásquez, RN [address] [place] [address] [facility] Community Acting Manager 11/29/18 08/15/21 Albaro Kellogg MD [address] [place] [address] Physician Endocrinology 08/01/19 11/17/20 Aging, [facility] 02/04/20 Ralph Wilcox MD [address] [place] [address] Gastroenterology 11/25/20 Otilia Paulson OD [address] [place] [address] Consulting Provider Optometry 11/25/20 Roselia Abernathy MD [address] [place] [address] Obstetrics and Gynecology 11/25/20 documented as of this encounter
--- OUTSIDE RECORDS SUMMARY | 2025-01-01 15:29 | XMS_ITS | Encounter Summary ---
Author Organization [facility] Address [address] [place] [address] Care Team Providers Care Shot Dropper Name Role Phone Alison Aguirre APRN Primary Care Provider [phone] Gurjit Baum MD Primary Care Provider [phone] Alison Aguirre APRN Primary Care Provider [phone] Soila Pineda Unavailable [phone] Gayatri George APRN Primary Care Provider Neva Velásquez RN Unavailable Albaro Kellogg MD Unavailable Aging, [facility] Unavailable [phone] Ralph Wilcox MD Unavailable [phone] Otilia Paulson OD Unavailable [phone] Roselia Abernathy MD Unavailable [phone] Gayatri George APRN Primary Care Provider Gayatri George APRN Unavailable [phone] Encounter Details Date Type Department Care Team (Late st Contact Info) Description 07/24/2017 Scanned Document [address] [phone] Alison Aguirre APRN [address] [place] [address] Social History Tobacco Use Types Packs/Day Years [...] on filedocumented in this encounter Care Teams Shot Dropper Relationship Specialty Start Date End Date Alison Aguirre APRN PCP - General Internal Medicine 06/06/17 10/15/17 Gurjit Baum MD [address] [place] [address] PCP - General Internal Medicine 10/16/17 10/23/17 Alison Aguirre APRN PCP - General Internal Medicine 10/24/17 07/16/18 Gayatri George APRN [address] [place] [address] PCP - General Family Medicine 07/17/18 11/17/20 Gayatri George APRN [address] [place] [address] PCP - General Family Medicine 11/25/20 01/20/21 Gayatri George APRN [address] [place] [address] PCP - [employer] Medicare Attributed 03/02/19 06/01/19 Soila Pineda, ADVISORY APPLICATION DEVELOPER [address] [place] [address] ICP PCMH+ Appeals Specialist 05/08/18 11/26/18 Neva Velásquez, RN [address] [place] [address] [facility] Community Fleet Mechanic 11/29/18 08/15/21 Albaro Kellogg MD [address] [place] [address] Physician Endocrinology 08/01/19 11/17/20 Aging, [facility] 02/04/20 Ralph Wilcox MD [address] [place] [address] Gastroenterology 11/25/20 Otilia Paulson OD [address] [place] [address] Consulting Provider Optometry 11/25/20 Roselia Abernathy MD [address] [place] [address] Obstetrics and Gynecology 11/25/20 documented as of this encounter
--- OUTSIDE RECORDS SUMMARY | 2025-01-01 15:29 | XMS_ITS | Encounter Summary ---
Author Organization [facility] Address [address] [place] [address] Care Team Providers Care Dye Range Operator Name Role Phone Alison Aguirre APRN Primary Care Provider [phone] Gurjit Baum MD Primary Care Provider [phone] Alison Aguirre APRN Primary Care Provider [phone] Soila Pineda Unavailable [phone] Gayatri George APRN Primary Care Provider Neva Velásquez RN Unavailable Albaro Kellogg MD Unavailable Aging, [place] [facility] Unavailable [phone] Ralph Wilcox MD Unavailable [phone] Otilia Paulson OD Unavailable [phone] Roselia Abernathy MD Unavailable [phone] Gayatri George APRN Primary Care Provider [phone] Gayatri George APRN Unavailable [phone] Reason for Visit * Reason Comments Medication Refill Encounter Details Date Type Department Care Team (Late st Contact Info) Description 07/15/[address] [phone] Alison Aguirre APRN [address] [place] [address] Hypertension, unspecified type Social History Tobacco Use [...] type documented in this encounter Care Teams Dye Range Operator Relationship Specialty Start Date End Date Alison Aguirre APRN PCP - General Internal Medicine 06/06/17 10/15/17 Gurjit Baum MD [address] [place] [address] PCP - General Internal Medicine 10/16/17 10/23/17 Alison Aguirre APRN PCP - General Internal Medicine 10/24/17 07/16/18 Gayatri George APRN [address] [address] PCP - General Family Medicine 07/17/18 11/17/20 Gayatri George APRN [address] [place], [place] [address] PCP - General Family Medicine 11/25/20 01/20/21 Gayatri George APRN [address] [place] [address] PCP - [employer] Medicare Attributed 03/02/19 06/01/19 Soila Pineda, BENDING FRAME OPERATOR [address] [place] [address] ICP PCMH+ Portable Feed Mill Operator 05/08/18 11/26/18 Neva Velásquez, RN [address] [place] [address] ICP Community Chemistry Faculty Member 11/29/18 08/15/21 Albaro Kellogg MD [address] [place] [address] Physician Endocrinology 08/01/19 11/17/20 Aging, [facility] 02/04/20 Ralph Wilcox MD [address] [place] [address] Gastroenterology 11/25/20 Otilia Paulson OD [address] [place] [address] Consulting Provider Optometry 11/25/20 Roselia Abernathy MD [address] [place] [address] Obstetrics and Gynecology 11/25/20 documented as of this encounter
--- OUTSIDE RECORDS SUMMARY | 2025-01-01 15:29 | XMS_ITS | Encounter Summary ---
Author Organization [facility] Address [address] [place] [address] Care Team Providers Care Cab Supervisor Name Role Phone Soila Pineda Unavailable [phone] Gayatri George APRN Primary Care Provider [phone] Neva Velásquez RN Unavailable Albaro Kellogg MD Unavailable Aging, [place] [facility] Unavailable [phone] Ralph Wilcox MD Unavailable [phone] Otilia Paulson OD Unavailable [phone] Roselia Abernathy MD Unavailable [phone] Gayatri eGorge APRN Primary Care Provider [phone] Gayatri George APRN Unavailable [phone] Encounter Details Date Type Department Care Team (Late st Contact Info) Description 08/30/2018 Scanned Document [facility] Podiatric Surgery [place] [address] [facility] [address] [place] [address] Delilah Domingo, DPM [address] [facility] [address] [place] [address] Social History Tobacco Use Types Packs/Day Years [...] on filedocumented in this encounter Care Teams Cab Supervisor Relationship Specialty Start Date End Date Gayatri George, NURSE DISCHARGE PLANNER [address] [place] [address] PCP - General Family Medicine 07/17/18 11/17/20 Gayatri George, NURSE DISCHARGE PLANNER [address] [address] PCP - General Family Medicine 11/25/20 01/20/21 Gayatri George, NURSE DISCHARGE PLANNER [address] [place] [address] PCP - [employer] Medicare Attributed 03/02/19 06/01/19 Soila Pineda, TOY TRAINS AND ACCESSORIES SALESPERSON [address] [place] [address] [facility] PCMH+ Crm Analyst 05/08/18 11/26/18 Neva Velásquez, JAMAR [address] [place] [address] [facility] Community Stock Driver 11/29/18 08/15/21 Albaro Kellogg MD [address] [place] [address] Physician Endocrinology 08/01/19 11/17/20 [facility], [facility] 02/04/20 Ralph Wilcox MD [address] [place] [address] Gastroenterology 11/25/20 Otilia Paulson OD [address] [place] [address] Consulting Provider Optometry 11/25/20 Roselia Abernathy MD [address] [place] [address] Obstetrics and Gynecology 11/25/20 documented as of this encounter
--- OUTSIDE RECORDS SUMMARY | 2025-01-01 15:29 | XMS_ITS | Encounter Summary ---
Author Organization [facility] Address [address] [place] [address] Care Team Providers Care Pick Out Hand Name Role Phone Alison Aguirre APRN Primary Care Provider [phone] Gurjit Baum MD Primary Care Provider [phone] Alison Aguirre APRN Primary Care Provider [phone] Soila Pineda Unavailable [phone] Gayatri George APRN Primary Care Provider Neva Velásquez RN Unavailable Albaro Kellogg MD Unavailable Aging, [facility] Unavailable [phone] Ralph Wilcox MD Unavailable [phone] Otilia Paulson OD Unavailable [phone] Roselia Abernathy MD Unavailable [phone] Gayatri George APRN Primary Care Provider [phone] Gayatri George APRN Unavailable [phone] Encounter Details Date Type Department Care Team (Late st Contact Info) Description 10/10/2017 Telephone [facility] [address] [place] [phone] Juan Miguel Pollard MD [address] [place] [address] Social History Tobacco Use Types Packs/Day Years [...] on filedocumented in this encounter Care Teams Pick Out Hand Relationship Specialty Start Date End Date Alison Aguirre APRN PCP - General Internal Medicine 06/06/17 10/15/17 Gurjit Baum MD [address] [place] [address] PCP - General Internal Medicine 10/16/17 10/23/17 Alison Aguirre APRN PCP - General Internal Medicine 10/24/17 07/16/18 Gayatri George APRN [address] [place] [address] PCP - General Family Medicine 07/17/18 11/17/20 Gayatri George APRN [address] [place] [address] PCP - General Family Medicine 11/25/20 01/20/21 Gayatri George APRN [address] [place] [address] PCP - United Medicare Attributed 03/02/19 06/01/19 Soila Pineda, PARTS COUNTER SPECIALIST [address] [place] [address] [facility] PCMH+ Manager Life Sciences 05/08/18 11/26/18 Neva Velásquez, RN [address] [place] [address] [facility] Community 1St Grade Teacher 11/29/18 08/15/21 Albaro Kellogg MD [address] [place] [address] Physician Endocrinology 08/01/19 11/17/20 Aging, [facility] 02/04/20 Ralph Wilcox MD [address] [place] [address] Gastroenterology 11/25/20 Otilia Paulson OD [address] [place] [address] Consulting Provider Optometry 11/25/20 Roselia Abernathy MD [address] [place] [address] Obstetrics and Gynecology 11/25/20 documented as of this encounter
--- OUTSIDE RECORDS SUMMARY | 2025-01-01 15:29 | XMS_ITS | Encounter Summary ---
Author Organization [facility] Address [address] [place] [address] Care Team Providers Care Breakfast Server Name Role Phone Alison Aguirre APRN Primary Care Provider [phone] Gurjit Baum MD Primary Care Provider [phone] Alison Aguirre APRN Primary Care Provider [phone] Soila Pineda Unavailable [phone] Gayatri George APRN Primary Care Provider Neva Velásquez RN Unavailable Albaro Kellogg MD Unavailable Aging, [facility] Unavailable +[phone] Ralph Wilcox MD Unavailable [phone] Otilia Paulson OD Unavailable [phone] Roselia Abernathy MD Unavailable [phone] Gayatri George APRN Primary Care Provider Gayatri George APRN Unavailable [phone] Encounter Details Date Type Department Care Team (Late st Contact Info) Description 07/11/2017 Scanned Document [address] [address] Alison Aguirre APRN [address] [place] [address] Social History Tobacco Use Types Packs/Day Years [...] on filedocumented in this encounter Care Teams Breakfast Server Relationship Specialty Start Date End Date Alison Aguirre APRN PCP - General Internal Medicine 06/06/17 10/15/17 Gurjit Baum MD [address] [place] [address] PCP - General Internal Medicine 10/16/17 10/23/17 Alison Aguirre APRN PCP - General Internal Medicine 10/24/17 07/16/18 Gayatri George APRN [address] [place] [address] PCP - General Family Medicine 07/17/18 11/17/20 Gayatri George APRN [address] [place] [address] PCP - General Family Medicine 11/25/20 01/20/21 Gayatri George APRN [address] [place] [address] PCP - United Medicare Attributed 03/02/19 06/01/19 Soila Pineda, ARTIST CONSULTANT [address] [place] [address] ICP PCMH+ Tool Sharpener 05/08/18 11/26/18 Neva Velásquez, RN [address] [place] [address] [facility] Community Deputy Director Of Nursing 11/29/18 08/15/21 Albaro Kellogg MD [address] [place] [address] Physician Endocrinology 08/01/19 11/17/20 Aging, [facility] 02/04/20 Ralph Wilcox MD [address] [place] [address] Gastroenterology 11/25/20 Otilia Paulson OD [address] [place] [address] Consulting Provider Optometry 11/25/20 Roselia Abernathy MD [address] [place] [address] Obstetrics and Gynecology 11/25/20 documented as of this encounter
--- OUTSIDE RECORDS SUMMARY | 2025-01-01 15:29 | XMS_ITS | Encounter Summary ---
Author Organization [facility] Address [address] [place] [address] Care Team Providers Care Aboriginal Ceremonial Celebrant Name Role Phone Gayatri George APRN Primary Care Provider [phone] Neva Velásquez RN Unavailable Albaro Kellogg MD Unavailable Aging, [facility] Unavailable [phone] Ralph Wilcox MD Unavailable Otilia Paulson OD Unavailable [phone] Roselia Abernathy MD Unavailable Gayatri George APRN Primary Care Provider [phone] Gayatri George APRN Unavailable [phone] Encounter Details Date Type Department Care Team (Late st Contact Info) Description 12/10/2018 Scanned Document [facility] [address] [place] [id number] Ralph Wilcox MD [address] [place] [address], [place] [address] Social History Tobacco Use Types Packs/Day Years [...] on filedocumented in this encounter Care Teams Aboriginal Ceremonial Celebrant Relationship Specialty Start Date End Date Gayatri George, ANA PCP - General Family Medicine 07/17/18 11/17/20 Gayatri George, IP ATTORNEY PCP - General Family Medicine 11/25/20 01/20/21 Gayatri George, IP ATTORNEY [address] [place] [address] PCP - United Medicare Attributed 03/02/19 06/01/19 Neva Velásquez, RN [address] [facility] 4 [place] [address] ICP Community Healthcare Account Manager 11/29/18 08/15/21 Albaro Kellogg MD [address] [place] [address] Physician Endocrinology 08/01/19 11/17/20 Aging, [facility] 02/04/20 Ralph Wilcox MD [address] [place] [address] Gastroenterology 11/25/20 Otilia Paulson OD [address] [place] [address] Consulting Provider Optometry 11/25/20 Roselia Abernathy MD 1 [place] [address] Obstetrics and Gynecology 11/25/20 documented as of this encounter
--- OUTSIDE RECORDS SUMMARY | 2025-01-01 15:29 | XMS_ITS | Encounter Summary ---
Author Organization [facility] Address [address] [place] [address] Care Team Providers Care Oracle Analyst Name Role Phone Gayatri George APRN Primary Care Provider Neva Velásquez RN Unavailable Albaro Kellogg MD Unavailable Aging, [place] [facility] Unavailable [phone] Ralph Wilcox MD Unavailable [phone] Otilia Paulson OD Unavailable [phone] Roselia Abernathy MD Unavailable [phone] Gayatri George APRN Primary Care Provider + [phone] Gayatri George APRN Unavailable [phone] Encounter Details Date Type Department Care Team (Late st Contact Info) Description 12/19/2018 Scanned Document [facility] OPTHALMOLOGY SCAN Social History Tobacco Use Types [...] on filedocumented in this encounter Care Teams Oracle Analyst Relationship Specialty Start Date End Date Gayatri George APRN PCP - General Family Medicine 07/17/18 11/17/20 Gayatri George APRN PCP - General Family Medicine 11/25/20 01/20/21 Gayatri George APRN [address] [place] [address] PCP - United Medicare Attributed 03/02/19 06/01/19 Neva Velásquez, JAMAR [address] [place] [address] [address] [facility] Community Compliance Examiner 11/29/18 08/15/21 Albaro Kellogg MD [address] [place] [address] Physician Endocrinology 08/01/19 11/17/20 Aging, [facility] 02/04/20 Ralph Wilcox MD [address] [place] [address] Gastroenterology 11/25/20 Otilia Paulson OD [address] [place] [address] Consulting Provider Optometry 11/25/20 Roselia Abernathy MD [address] [place] [address] Obstetrics and Gynecology 11/25/20 documented as of this encounter
--- OUTSIDE RECORDS SUMMARY | 2025-01-01 15:29 | XMS_ITS | Continuity of Care Document ---
Author Organization [facility] 2 [facility] [address] [place] [address] Phone [phone] Care Team Providers Care Double End Trimmer Name Role Phone Tommie Suarez MD Care Team Information Airplane Inspector [phone] Problems Active Problems Provider Date Type 2 [...] SIG Qnty Indications Order ing Provider Date Sphpwbxto24ij Tablets Take One Tablet By Mouth Every Morning ^1R1 90tabs Leann Staton M.D. 11/15/2024 Onetouch VerioStrips Use One Strip To Check Glucose 3 To 4 Times Daily (Bulk) 100units E11.22 Leann Staton M.D. 12/29/2023 Freestyle Jazmine 2/Mills/Flash Glucose Monitoring Lyeuaa5Ukfyfx Device use as directed with sensors dx: e11.22 1units E11.22 Leann Staton M.D. 11/23/2023 Freestyle Jazmine 2/Sensor/Flash Glucose Monitoring Iyivqs1Cijbbj [facility] Use 1 Sensor Every 14 Days as Directed (Bulk) 3units E11.22 Leann Staton M.D. 11/23/2023 Lantus Tcwkzbmn004Xlis/ML Solution Pen-Inject Lazaro Suarez MD Montelukast Sewhid16ao Tablets 1 by mouth every day 30tabs Tommie Suarez MD Trulicity4.5mg/0.5ML Solution Pen-Inject inject 4.5mg into skin every week 6ml Tommie Suarez MD Vitamin D (Ergocalciferol)1.25m g (44410 Ut) Capsules Tommie Suarez MD Atorvastatin Cczlbfg43wg Tablets 1 by mouth every day 90tabs Tommie Suraez MD Aspirin Low Urxj83ql Tablets DR 1 by mouth every day Tommie Suarez MD Albuterol Sulfate EON409(90Base) mcg/Act Aerosol Tommie Suarez MD Vwqgnmbgbd971vz Capsules 1 capsule by twice daily 180caps Tommie Suarez MD Stzvtvuplr6yg Tablets 1 tab by mouth twice a day Tommie Suarez MD Pantoprazole Necixh65jc Tablets DR 1 by mouth every day 90tabs Tommie Suarez MD Novolog Aiygqtp599Cvau/ML Solution Pen-Inject Lazaro Suarez MD Vital Signs Date Vital Result Comment 11/15/2024 3:07pm BP Systolic 130 mmHg BP Diastolic 88 mmHg Heart Rate 87 /min Height 66 inches 5'6 Weight 186.25 lb BMI (Body Mass Index) 30.1 kg/m2 Results Test Acquired Date Facility Test Result H/L Range N ote Glucose Fingerstick 11/15/2024 Inhouse Glucose Fingerstick 203 Hemoglobin A1c 11/15/2024 Inhouse Hemoglobin A1c 8.0% Glucose Fingerstick 08/01/2024 Inhouse Glucose Fingerstick 150 Hemoglobin A1c 08/01/2024 Inhouse Hemoglobin A1c 7.6% Glucose Fingerstick 05/01/2024 Inhouse Glucose Fingerstick 257 Glucose Fingerstick 12/29/2023 Inhouse Glucose Fingerstick 74 Hemoglobin A1c 12/29/2023 Inhouse Hemoglobin A1c 6.7% Glucose Fingerstick 11/23/2023 Inhouse Glucose Fingerstick 190 Procedures Date Code Description Status 11/15/2024 14890 Glucose Monitoring Interpeta tion And Report Completed 08/01/2024 07844 Glucose Monitoring Interpeta tion And Report Completed Medical Devices Description No Information Available Encounters Type Date Location Provider Dx Diagnosis Office Visit 11/15/2024 2:45p Main Office [facility] 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 E11.42 Type 2 diabetes mila itus with diabetic polyneuropathy 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 D63.1 Anemia in chronic ki dney disease Assessments Date Code Description Provider 11/15/2024 E11.22 Type 2 diabetes mellitus with diabetic chronic kidney disease ELENO Robins 11/15/2024 E11.42 Type 2 diabetes mellitus with diabetic polyneuropathy EL[facility] Robins 11/15/2024 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
--- OUTSIDE RECORDS SUMMARY | 2025-01-01 15:29 | XMS_ITS | Encounter Summary ---
Author Organization [facility] Address [address] [place] [address] Care Team Providers Care Spot Remover Name Role Phone Alison Aguirre APRN Primary Care Provider [phone] Soila Pineda Unavailable [phone] Gayatri George APRN Primary Care Provider Neva Velásquez RN Unavailable Albaro Kellogg MD Unavailable Aging, [place] [facility] Unavailable [phone] Ralph Wilcox MD Unavailable [phone] Otilia Paulson OD Unavailable [phone] Roselia Abernathy MD Unavailable [phone] Gayatri George APRN Primary Care Provider + [phone] Gayatri George APRN Unavailable [phone] Encounter Details Date Type Department Care Team (Late st Contact Info) Description 02/01/2018 Scanned Document [address] [place] [address] Provider, Generic Social History Tobacco [...] on filedocumented in this encounter Care Teams Spot Remover Relationship Specialty Start Date End Date Alison Aguirre APRN PCP - General Internal Medicine 10/24/17 07/16/18 Gayatri George, ANA [address] [place] [address] PCP - General Family Medicine 07/17/18 11/17/20 Gayatri George, RAILCAR SWITCHMAN [address] [address] PCP - General Family Medicine 11/25/20 01/20/21 Gayatri George, RAILCAR SWITCHMAN [address] [place] [address] PCP - United Medicare Attributed 03/02/19 06/01/19 Soila Pineda, ULTRASONIC SOLDERER [address] [place] [address] [facility] PCM+ Agent Ticketing Gate 05/08/18 11/26/18 Neva Velásquez, JAMAR [address] [place] [address] [facility] Community Floor Coverings Installer 11/29/18 08/15/21 Albaro Kellogg MD [address] [place] [address] Physician Endocrinology 08/01/19 11/17/20 Aging, [facility] 02/04/20 Ralph Wilcox MD [address] [address] Gastroenterology 11/25/20 Otilia Paulson OD [address] [place] [address] Consulting Provider Optometry 11/25/20 Roselia Abernathy MD 1 [place] [address] Obstetrics and Gynecology 11/25/20 documented as of this encounter
--- OUTSIDE RECORDS SUMMARY | 2025-01-01 15:29 | XMS_ITS | Encounter Summary ---
Author Organization [facility] Address [address] [place] [address] Care Team Providers Care Vinyl Installer Name Role Phone Gurjit Baum MD Primary Care Provider [phone] Alison Aguirre APRN Primary Care Provider [phone] Soila Pineda DIGESTER CAPPER Unavailable [phone] Gayatri George APRN Primary Care Provider + [phone] Neva Veálsquez RN Unavailable Albaro Kellogg MD Unavailable Aging, [place] [facility] Unavailable [phone] Ralph Wilcox MD Unavailable [phone] Otilia Paulson OD Unavailable [phone] Roselia Abernathy MD Unavailable [phone] Gayatri George APRN Primary Care Provider + [phone] Gayatri George APRN Unavailable [phone] Encounter Details Date Type Department Care Team (Late st Contact Info) Description 10/19/2017 Scanned Document [facility] [address] [place] [address] Provider, Generic Social History Tobacco Use Types [...] on filedocumented in this encounter Care Teams Vinyl Installer Relationship Specialty Start Date End Date Gurjit Baum MD [address] [place], [place] [address] PCP - General Internal Medicine 10/16/17 10/23/17 Alison Aguirre APRN [address] [place] [address] PCP - General Internal Medicine 10/24/17 07/16/18 Gayatri George, PRESCRIPTIONIST [address] [address] PCP - General Family Medicine 07/17/18 11/17/20 Gayatri George, ANA [address] [address] PCP - General Family Medicine 11/25/20 01/20/21 Gayatri George, PRESCRIPTIONIST 30 [place] [address] PCP - United Medicare Attributed 03/02/19 06/01/19 Soila Pineda, DIGESTER CAPPER [address] [place] [address] ICP PCMH+ Title Attorney 05/08/18 11/26/18 Neva Velásquez, RN [address] [place] [address] ICP Community Supervisor Sandblaster 11/29/18 08/15/21 Albaro Kellogg MD [address] [place] [address] Physician Endocrinology 08/01/19 11/17/20 Aging, [facility] 02/04/20 Ralph Wilcox MD [address] [place] [address], [place] [address] Gastroenterology 11/25/20 [place] [address] [place] [address] Consulting Provider Optometry 11/25/20 Roselia Abernathy MD [address] [place] [address] Obstetrics and Gynecology 11/25/20 documented as of this encounter
--- OUTSIDE RECORDS SUMMARY | 2025-01-01 15:29 | XMS_ITS | Encounter Summary ---
Author Organization [facility] Address [address] [place] [address] Care Team Providers Care Lay Out Carpenter Name Role Phone Alison Aguirre APRN Primary Care Provider [phone] Gurjit Baum MD Primary Care Provider [phone] Alison Aguirre APRN Primary Care Provider [phone] Soila Pineda Unavailable [phone] Gayatri George APRN Primary Care Provider Neva Velásquez RN Unavailable Albaro Kellogg MD Unavailable Aging, [facility] Unavailable [phone] Ralph Wilcox MD Unavailable [phone] Otilia Paulson OD Unavailable [phone] Roselia Abernathy MD Unavailable [phone] Gayatri George APRN Primary Care Provider [phone] Gayatri George APRN Unavailable [phone] Encounter Details Date Type Department Care Team (Late st Contact Info) Description 09/12/2017 Scanned Document [address] [address] Alison Aguirre APRN [address] [place] [address] Social History Tobacco Use Types Packs/Day Years [...] on filedocumented in this encounter Care Teams Lay Out Carpenter Relationship Specialty Start Date End Date Alison Aguirre APRN PCP - General Internal Medicine 06/06/17 10/15/17 Gurjit Baum MD [address] [place] [address] PCP - General Internal Medicine 10/16/17 10/23/17 Alison Aguirre APRN PCP - General Internal Medicine 10/24/17 07/16/18 Gayatri George APRN [address] [place] [address] PCP - General Family Medicine 07/17/18 11/17/20 Gayatri George APRN [address] [place] [address] PCP - General Family Medicine 11/25/20 01/20/21 Gayatri George APRN [address] [place] [address] PCP - United Medicare Attributed 03/02/19 06/01/19 Soila Pineda, CASER IN [address] [place] [address] ICP PCMH+ Truck Service Manager 05/08/18 11/26/18 Neva Velásquez, RN [address] [place] [address] [facility] Community Manager Ems 11/29/18 08/15/21 Albaro Kellogg MD [address] [place] [address] Physician Endocrinology 08/01/19 11/17/20 Aging, [facility] 02/04/20 Ralph Wilcox MD [address] [place] [address] Gastroenterology 11/25/20 Otilia Paulson OD [address] [place] [address] Consulting Provider Optometry 11/25/20 Roselia Abernathy MD [address] [place] [address] Obstetrics and Gynecology 11/25/20 documented as of this encounter
--- OUTSIDE RECORDS SUMMARY | 2025-01-01 15:29 | XMS_ITS | Encounter Summary ---
Author Organization [facility] Address [address] [place] [address] Care Team Providers Care Barn Boss Name Role Phone Alison Aguirre APRN Primary Care Provider [phone] Soila Pineda Unavailable [phone] Gayatri George APRN Primary Care Provider Neva Velásquez RN Unavailable Albaro Kellogg MD Unavailable [place], [place] [facility] Unavailable +[phone] Ralph Wilcox MD Unavailable [phone] Otilia Paulson OD Unavailable [phone] Roselia Abernathy MD Unavailable [phone] Gayatri George APRN Primary Care Provider + [phone] Gayatri George APRN Unavailable [phone] Reason for Visit * Reason Comments Medication Refill Encounter Details Date Type Department Care Team (Late st Contact Info) Description 05/31/2018 Refill [facility] Heart & Vascular [place] [facility] - Cardiology [address] [place] [address] Brenda Tony MD [address] [place] [address], [place] [address] Medication Refill Social History Tobacco Use Types [...] hypertension documented in this encounter Care Teams Barn Boss Relationship Specialty Start Date End Date Alison Aguirre APRN PCP - General Internal Medicine 10/24/17 07/16/18 Gayatri George APRN [address] [address] PCP - General Family Medicine 07/17/18 11/17/20 Gayatri George APRN [address] [address] PCP - General Family Medicine 11/25/20 01/20/21 Gayatri George APRN [address] [place] [address] PCP - United Medicare Attributed 03/02/19 06/01/19 Soila Pineda, FURNITURE INSPECTOR [address] [place] [address] ICP PCMH+ Electronics Worker 05/08/18 11/26/18 Neva Velásquez, RN [address] [place] [address] ICP Community Sub Acute Care Nurse 11/29/18 08/15/21 Albaro Kellogg MD [address] [place] [address] Physician Endocrinology 08/01/19 11/17/20 Aging, [facility] 02/04/20 Ralph Wilcox MD [address] [place] [address] Gastroenterology 11/25/20 Otilia Paulson OD [address] [place] [address] Consulting Provider Optometry 11/25/20 Roselia Abernathy MD [address] [place] [address] Obstetrics and Gynecology 11/25/20 documented as of this encounter
--- OUTSIDE RECORDS SUMMARY | 2025-01-01 15:29 | XMS_ITS | Encounter Summary ---
Author Organization [facility] Address [address] [place] [address] Care Team Providers Care Epidemiology Investigator Name Role Phone Alison Aguirre APRN Primary Care Provider [phone] Soila Pineda Unavailable [phone] Gayatri George APRN Primary Care Provider Neva Velásquez RN Unavailable Albaro Kellogg MD Unavailable Aging, [place] [facility] Unavailable [phone] Ralph Wilcox MD Unavailable [phone] Otilia Paulson OD Unavailable [phone] Roselia Abernathy MD Unavailable [phone] Gayatri George APRN Primary Care Provider Gayatri George APRN Unavailable [phone] Encounter Details Date Type Department Care Team (Late st Contact Info) Description 03/13/2018 Infusion [facility] [place] [facility]: Outpatient Infusion Center [address] [place] [address] Gurjit Baum MD [address] [address] Social History Tobacco Use Types Packs/Day Years [...] on filedocumented in this encounter Care Teams Epidemiology Investigator Relationship Specialty Start Date End Date Alison Aguirre APRN PCP - General Internal Medicine 10/24/17 07/16/18 Gayatri George APRN [address] [place] [address] PCP - General Family Medicine 07/17/18 11/17/20 Gayatri George, AGRICULTURE INSTRUCTOR [address] [address] PCP - General Family Medicine 11/25/20 01/20/21 Gayatri George, ANA [address] [place] [address] PCP - United Medicare Attributed 03/02/19 06/01/19 Soila Pineda MSW [address] [place] [address] [facility]+ Bonding Agent 05/08/18 11/26/18 Neva Velásquez, RN [address] [place] [address] [address] ICP Community Hotel Controller 11/29/18 08/15/21 Albaro Kellogg MD [address] [place] [address] Physician Endocrinology 08/01/19 11/17/20 [facility] 02/04/20 Ralph Wilcox MD [address] [address] Gastroenterology 11/25/20 Otilia Paulson OD [address] [place] [address] Consulting Provider Optometry 11/25/20 Roselia Abernathy MD [address] [place] [address] Obstetrics and Gynecology 11/25/20 documented as of this encounter
--- OUTSIDE RECORDS SUMMARY | 2025-01-01 15:29 | XMS_ITS | Encounter Summary ---
Author Organization [facility] Address [address] [place] [address] Care Team Providers Care Fisherman Helper Name Role Phone Gurjit Baum MD Primary Care Provider [phone] Alison Aguirre APRN Primary Care Provider +[phone] Soila Pineda SPRAY RIG OPERATOR Unavailable [phone] Gayatri George APRN Primary Care Provider + [phone] Neva Velásquez RN Unavailable Albaro Kellogg MD Unavailable Aging, [place] [facility] Unavailable [phone] Ralph Wilcox MD Unavailable [phone] Otilia Paulson OD Unavailable [phone] Roselia Abernathy MD Unavailable [phone] Gayatri George APRN Primary Care Provider + [phone] Gayatri George APRN Unavailable [phone] Encounter Details Date Type Department Care Team (Late st Contact Info) Description 10/16/2017 Scanned Document [address] [phone] Gurjit Baum MD [address] [place] [address] Social History Tobacco Use Types Packs/Day Years [...] on filedocumented in this encounter Care Teams Fisherman Helper Relationship Specialty Start Date End Date Gurjit Baum MD [address] [place], [place] [phone] PCP - General Internal Medicine 10/16/17 10/23/17 Alison Aguirre APRN [address] [place] [address] PCP - General Internal Medicine 10/24/17 07/16/18 Gayatri George, ANA [address] [address] PCP - General Family Medicine 07/17/18 11/17/20 Gayatri George, COURT SUPERVISOR [address] [place] [address] PCP - General Family Medicine 11/25/20 01/20/21 Gayatri George, ANA 30 [place] [address] PCP - United Medicare Attributed 03/02/19 06/01/19 Soila Pineda, SPRAY RIG OPERATOR [address] [place] [address] [facility] PCMH+ Annual Giving Officer 05/08/18 11/26/18 Neva Velásquez, RN [address] [place] [address] [facility] Community Patient Care Associate 11/29/18 08/15/21 Albaro Kellogg MD [address] [place] [address] Physician Endocrinology 08/01/19 11/17/20 Aging, [facility] 02/04/20 aRlph [place] MD [address] [place] [address] Gastroenterology 11/25/20 Otilia Paulson, HERBIE [address] [place] [address] Consulting Provider Optometry 11/25/20 Roselia Abernathy MD [address] [place] [address] Obstetrics and Gynecology 11/25/20 documented as of this encounter
--- OUTSIDE RECORDS SUMMARY | 2025-01-01 15:29 | XMS_ITS | Encounter Summary ---
Author Organization [facility] Address [address] [place] [address] Care Team Providers Care Metal Worker Name Role Phone Gayatri George APRN Primary Care Provider [phone] Neva Velásquez RN Unavailable Albaro Kellogg MD Unavailable Aging, [facility] Unavailable [phone] Ralph Wilcox MD Unavailable Otilia Paulson OD Unavailable [phone] Roselia Abernathy MD Unavailable Gayatri George GREENSKEEPER SUPERVISOR Primary Care Provider [phone] Gayatri George APRN Unavailable [phone] Reason for Visit * Reason Comments Medication Refill Encounter Details Date Type Department Care Team (Late st Contact Info) Description 03/18/[address] [place] [address] [phone] Gayatri George, GREENSKEEPER SUPERVISOR [address] [place] [address] Moderate persistent asthma, unspecified whether complicated Social [...] complicated documented in this encounter Care Teams Metal Worker Relationship Specialty Start Date End Date Gayatri George APRN PCP - General Family Medicine 07/17/18 11/17/20 Gayatri George APRN PCP - General Family Medicine 11/25/20 01/20/21 Gayatri George APRN 30 [place] [address] PCP - United Medicare Attributed 03/02/19 06/01/19 Neva Velásquez, RN [address] [facility] 4 [place] [address] [facility] Community Master Esthetician 11/29/18 08/15/21 Albaro Kellogg MD [address] [place] [address] Physician Endocrinology 08/01/19 11/17/20 Aging, [place] [facility] 02/04/20 Ralph [place] MD [address] [place] [address] Gastroenterology 11/25/20 Otilia Paulson OD [facility]3 [place] [address] Consulting Provider Optometry 11/25/20 Roselia Abernathy MD [address] [place] [address] Obstetrics and Gynecology 11/25/20 documented as of this encounter
--- OUTSIDE RECORDS SUMMARY | 2025-01-01 15:29 | XMS_ITS | Encounter Summary ---
Author Organization [facility] Address [address] [place] [address] Care Team Providers Care Social Welfare Administrator Name Role Phone Gayatri George APRN Primary Care Provider [phone] Neva Velásquez RN Unavailable Albaro Kellogg MD Unavailable Aging, [place] [facility] Unavailable [phone] Ralph Wilcox MD Unavailable +[phone] Otilia Paulson OD Unavailable [phone] Roselia Abernathy MD Unavailable [phone] Gayatri George APRN Primary Care Provider Reason for Visit * Reason Comments Medication Refill Encounter Details Date Type Department Care Team (Late st Contact Info) Description 08/17/2019 Refill [facility] Medical [facility] Endocrinology [address] [phone] Albaro Kellogg MD [address] [place] [phone] Type II or unspecified type diabetes mellitus [...] uncontrolled documented in this encounter Care Teams Social Welfare Administrator Relationship Specialty Start Date End Date Gayatri George APRN PCP - General Family Medicine 07/17/18 11/17/20 Gayatri George APRN PCP - General Family Medicine 11/25/20 01/20/21 Neva Velásquez, JAMAR [address] [facility] 4 [place] [address] [facility] Community Welfare Service Aide 11/29/18 08/15/21 Albaro Kellogg MD [address] [place] [address] Physician Endocrinology 08/01/19 11/17/20 Aging, [facility] 02/04/20 Ralph Wilcox MD [address] [address] Gastroenterology 11/25/20 Otilia Paulson OD [facility]3 [place] [address] Consulting Provider Optometry 11/25/20 Roselia Abernathy MD [address] [place] [place] [address] Obstetrics and Gynecology 11/25/20 documented as of this encounter
--- OUTSIDE RECORDS SUMMARY | 2025-01-01 15:29 | XMS_ITS | Encounter Summary ---
Author Organization [facility] Address [address] [place] [address] Care Team Providers Care Grubber Name Role Phone Alison Aguirre APRN Primary Care Provider [phone] Gurjit Baum MD Primary Care Provider [phone] Alison Aguirre APRN Primary Care Provider [phone] Soila Pineda Unavailable [phone] Gayatri George APRN Primary Care Provider Neva Velásquez RN Unavailable Albaro Kellogg MD Unavailable Aging, [facility] Unavailable [phone] Ralph Wilcox MD Unavailable [phone] Otilia Paulson OD Unavailable [phone] Roselia Abernathy MD Unavailable [phone] Gayatri George APRN Primary Care Provider [phone] Gayatri George APRN Unavailable [phone] Encounter Details Date Type Department Care Team (Late st Contact Info) Description 07/21/2017 Scanned Document [address] [phone] Alison Aguirre APRN [address] [place] [address] Social History Tobacco Use Types Packs/Day Years [...] on filedocumented in this encounter Care Teams Grubber Relationship Specialty Start Date End Date Alison Aguirre APRN PCP - General Internal Medicine 06/06/17 10/15/17 Gurjit Baum MD [address] [place] [address] PCP - General Internal Medicine 10/16/17 10/23/17 Alison Aguirre APRN PCP - General Internal Medicine 10/24/17 07/16/18 Gayatri George APRN [address] [place] [address] PCP - General Family Medicine 07/17/18 11/17/20 Gayatri George APRN [address] [place] [address] PCP - General Family Medicine 11/25/20 01/20/21 Gayatri George APRN [address] [place] [address] PCP - United Medicare Attributed 03/02/19 06/01/19 Soila Pineda, CONE CHOCOLATE DIPPER [address] [place] [address] [facility] PCMH+ Nail Making Machine Tender 05/08/18 11/26/18 Neva Velásquez, RN [address] [place] [address] [facility] Community Honing Machine Operator Tool 11/29/18 08/15/21 Albaro Kellogg MD [address] [place] [address] Physician Endocrinology 08/01/19 11/17/20 Aging, [facility] 02/04/20 Ralph Wilcox MD [address] [place] [address] Gastroenterology 11/25/20 Otilia Paulson OD [address] [place] [address] Consulting Provider Optometry 11/25/20 Roselia Abernathy MD [address] [place] [address] Obstetrics and Gynecology 11/25/20 documented as of this encounter
--- OUTSIDE RECORDS SUMMARY | 2025-01-01 15:29 | XMS_ITS | Encounter Summary ---
Author Organization [facility] Address [address] [place] [address] Care Team Providers Care Ceramic Tile Mechanic Name Role Phone [facility], [place] [facility] Unavailable [phone] Ralph Wilcox MD Unavailable [phone] Otilia Paulson OD Unavailable [phone] Roselia Abernathy MD Unavailable [phone] Encounter Details Date Type Department Care Team (Late st Contact Info) Description 08/21/2024 Telephone [facility] [address] [place] [phone] Garry Chung Social History Tobacco Use Types [...] on filedocumented in this encounter Care Teams Ceramic Tile Mechanic Relationship Specialty Start Date End Date [facility], [facility] 02/04/20 Ralph Wilcox MD [address] [place] [address] Gastroenterology 11/25/20 Otilia Paulson OD [address] [place] [address] Consulting Provider Optometry 11/25/20 Roselia Abernathy MD [address] [place] [address] Obstetrics and Gynecology 11/25/20 documented as of this encounter
--- OUTSIDE RECORDS SUMMARY | 2025-01-01 15:29 | XMS_ITS | Encounter Summary ---
Author Organization [facility] Address [address] [place] [address] Care Team Providers Care Research Engineer Name Role Phone Alison Aguirre APRN Primary Care Provider [phone] Gurjit Baum MD Primary Care Provider [phone] Alison Aguirre APRN Primary Care Provider [phone] Soila Pineda Unavailable [phone] Gayatri George APRN Primary Care Provider [phone] Neva Velásquez RN Unavailable Albaro Kellogg MD Unavailable Aging, [place] [facility] Unavailable [phone] Ralph Wilcox MD Unavailable [phone] Otilia Paulson OD Unavailable [phone] Roselia Abernathy MD Unavailable [phone] Gayatri George APRN Primary Care Provider + [phone] Gayatri George APRN Unavailable [phone] Reason for Visit * Reason Comments Medication Refill Encounter Details Date Type Department Care Team (Late st Contact Info) Description 10/04/[address] [phone] Alison Aguirre APRN [address] [place] [address] Hypertension, unspecified type Social History Tobacco Use [...] type documented in this encounter Care Teams Research Engineer Relationship Specialty Start Date End Date Alison Aguirre APRN PCP - General Internal Medicine 06/06/17 10/15/17 Gurjit Baum MD [address] [place] [address] PCP - General Internal Medicine 10/16/17 10/23/17 Alison Aguirre APRN PCP - General Internal Medicine 10/24/17 07/16/18 Gayatri George APRN [address] [address] PCP - General Family Medicine 07/17/18 11/17/20 Gayatri George APRN [address] [address] PCP - General Family Medicine 11/25/20 01/20/21 Gayatri George APRN 30 [place] [address] PCP - United Medicare Attributed 03/02/19 06/01/19 Soila Pineda, DIRECT MARKETING INTERN [address] [place] [address] [facility] PCMH+ Golf Course Ranger 05/08/18 11/26/18 Neva Velásquez, RN [address] Blood cell [address] [place] [address] [facility] Community Powder Room Attendant 11/29/18 08/15/21 Albaro Kellogg MD [address] [place] [address] Physician Endocrinology 08/01/19 11/17/20 Aging, [place] [facility] 02/04/20 Ralph Wilcox MD [address] [place] [address] Gastroenterology 11/25/20 Otilia Paulson OD [address] [place] [address] Consulting Provider Optometry 11/25/20 Roselia Abernathy MD [address] [place] [address] Obstetrics and Gynecology 11/25/20 documented as of this encounter
--- OUTSIDE RECORDS SUMMARY | 2025-01-01 15:29 | XMS_ITS | Encounter Summary ---
Author Organization [facility] Address [address] [place] [address] Care Team Providers Care Transportation Analyst Name Role Phone Alison Aguirre APRN Primary Care Provider [phone] Gurjit Baum MD Primary Care Provider [phone] Alison Aguirre APRN Primary Care Provider [phone] Soila Pineda Unavailable [phone] Gayatri George APRN Primary Care Provider Neva Velásquez RN Unavailable Albaro Kellogg MD Unavailable Aging, [facility] Unavailable +[phone] Ralph Wilcox MD Unavailable [phone] Otilia Paulson OD Unavailable [phone] Roselia Abernathy MD Unavailable [phone] Gayatri George APRN Primary Care Provider Gayatri George APRN Unavailable [phone] Encounter Details Date Type Department Care Team (Late st Contact Info) Description 06/28/2017 Scanned Document [address] [phone] Alison Aguirre APRN [address] [place] [address] Social History Tobacco Use Types Packs/Day Years [...] filedocumented in this encounter Care Teams Transportation Analyst Relationship Specialty Start Date End Date Alison Aguirre APRN PCP - General Internal Medicine 06/06/17 10/15/17 Gurjit Baum MD [address] [place] [address] PCP - General Internal Medicine 10/16/17 10/23/17 Alison Aguirre APRN PCP - General Internal Medicine 10/24/17 07/16/18 Gayatri George APRN [address] [place] [address] PCP - General Family Medicine 07/17/18 11/17/20 Gayatri George APRN [address] [place] [address] PCP - General Family Medicine 11/25/20 01/20/21 Gayatri George APRN [address] [place] [address] PCP - United Medicare Attributed 03/02/19 06/01/19 Soila Pineda, ULTRASOUND SONOGRAPHER [address] [place] [address] [facility] PCMH+ Diamond Assorter 05/08/18 11/26/18 Neva Velásquez, RN [address] [place] [address] [facility] Community Waiter/Waitress Informal 11/29/18 08/15/21 Albaro Kellogg MD [address] [place] [address] Physician Endocrinology 08/01/19 11/17/20 Aging, [facility] 02/04/20 Ralph [place] MD [address] [place] [address] Gastroenterology 11/25/20 Otilia Paulson OD [address] [place] [address] Consulting Provider Optometry 11/25/20 Roselia Abernathy MD [address] [place] [address] Obstetrics and Gynecology 11/25/20 documented as of this encounter
--- OUTSIDE RECORDS SUMMARY | 2025-01-01 15:29 | XMS_ITS | Encounter Summary ---
Author Organization [facility] Address [address] [place] [address] Care Team Providers Care Ship Keeper Name Role Phone Gayatri George APRN Primary Care Provider [phone] Neva Velásquez RN Unavailable Albaro Kellogg MD Unavailable Aging, [facility] Unavailable [phone] Ralph Wilcox MD Unavailable Otilia Paulson OD Unavailable [phone] Roselia Abernathy MD Unavailable [phone] Gayatri George APRN Primary Care Provider Gayatri George APRN Unavailable [phone] Encounter Details Date Type Department Care Team (Late st Contact Info) Description 03/13/2019 Scanned Document [facility] Endocrinology [address] [phone] Qi Aponte PA [address] [place] [phone] Social History Tobacco Use Types Packs/Day Years [...] on filedocumented in this encounter Care Teams Ship Keeper Relationship Specialty Start Date End Date Gayatri George APRN PCP - General Family Medicine 07/17/18 11/17/20 Gayatri George APRN PCP - General Family Medicine 11/25/20 01/20/21 Gayatri George APRN 30 [place] [address] PCP - United Medicare Attributed 03/02/19 06/01/19 Neva Velásquez, RN [address] [address] [facility] Community Supervisor Modern Languages 11/29/18 08/15/21 Albaro Kellogg MD [address] [place] [address] Physician Endocrinology 08/01/19 11/17/20 Aging, [facility] 02/04/20 Ralph [place] MD [address] [place] [address] Gastroenterology 11/25/20 Otilia Paulson OD [address] [place] [address] Consulting Provider Optometry 11/25/20 Roselia Abernathy MD [address] [place] [address] Obstetrics and Gynecology 11/25/20 documented as of this encounter
--- OUTSIDE RECORDS SUMMARY | 2025-01-01 15:30 | XMS_ITS | Encounter Summary ---
Author Organization [facility] Address [address] [place] [address] Care Team Providers Care Television Presenter Name Role Phone Alison Aguirre APRN Primary Care Provider [phone] Soila Pineda Unavailable [phone] Gayatri George APRN Primary Care Provider [phone] Neva Velásquez RN Unavailable Albaro Kellogg MD Unavailable Aging, [place] [facility] Unavailable [phone] Ralph Wilcox MD Unavailable [phone] Otilia Paulson OD Unavailable [phone] Roselia Abernathy MD Unavailable [phone] Gayatri George APRN Primary Care Provider Gayatri George APRN Unavailable [phone] Encounter Details Date Type Department Care Team (Late st Contact Info) Description 11/07/2017 Scanned Document [facility] [address] [facility] [address] [place] [address] Provider, Generic Social History Tobacco [...] on filedocumented in this encounter Care Teams Television Presenter Relationship Specialty Start Date End Date Alison Aguirre APRN PCP - General Internal Medicine 10/24/17 07/16/18 Gayatri George, DISULFURIZER TENDER [address] [place] [address] PCP - General Family Medicine 07/17/18 11/17/20 Gayatri George, DISULFURIZER TENDER [address] [address] PCP - General Family Medicine 11/25/20 01/20/21 Gayatri George, DISULFURIZER TENDER 30 [place] [address] PCP - United Medicare Attributed 03/02/19 06/01/19 Soila Pineda, OPTICAL GOODS DRILLING MACHINE OPERATOR [address] [place] [address] [facility] PCM+ Linoleum Printer 05/08/18 11/26/18 Neva Velásquez, RN [address] [place] [address] [facility] Community Director Regulatory Compliance 11/29/18 08/15/21 Albaro Kellogg MD [address] [place] [address] Physician Endocrinology 08/01/19 11/17/20 Aging, [facility] 02/04/20 Ralph Wilcox MD [address] [address] Gastroenterology 11/25/20 Otilia Paulson OD [address] [place] [address] Consulting Provider Optometry 11/25/20 Roselia Abernathy MD 1 [place] [address] Obstetrics and Gynecology 11/25/20 documented as of this encounter
--- OUTSIDE RECORDS SUMMARY | 2025-01-01 15:31 | XMS_ITS | Encounter Summary ---
Author Organization [facility] Address [address] [place] [address] Care Team Providers Care Power Plant Operators Supervisor Name Role Phone Alison Aguirre APRN Primary Care Provider Soila Pineda OBSTETRICS NURSE PRACTITIONER Unavailable [phone] Gayatri George APRN Primary Care Provider Neva Velásquez RN Unavailable Albaro Kellogg MD Unavailable Aging, [place] [facility] Unavailable [phone] Ralph Wilcox MD Unavailable [phone] Otilia Paulson OD Unavailable [phone] Roselia Abernathy MD Unavailable [phone] Gayatri George APRN Primary Care Provider Gayatri George APRN Unavailable [phone] Encounter Details Date Type Department Care Team (Late st Contact Info) Description 11/01/2017 Scanned Document [address] [phone] Alison Aguirre APRN [address] [place] [address] Social History Tobacco Use Types Packs/Day Years [...] filedocumented in this encounter Care Teams Power Plant Operators Supervisor Relationship Specialty Start Date End Date Alison Aguirre APRN PCP - General Internal Medicine 10/24/17 07/16/18 Gayatri George, ANA [address] [employer] [place] [address] PCP - General Family Medicine 07/17/18 11/17/20 Gayatri George, PAROLE BOARD MEMBER [address] [employer] [address] [id number] PCP - General Family Medicine 11/25/20 01/20/21 Gayatri George, PAROLE BOARD MEMBER 30 [place] [address] PCP - United Medicare Attributed 03/02/19 06/01/19 Soila Pineda MSW [address] [employer] [address] [place] [address] [facility]+ Cupola Hoist Operator 05/08/18 11/26/18 Neva Velásquez, RN [address] [employer] [address] [address] [facility] Community Building Construction Supervisor 11/29/18 08/15/21 Albaro Kellogg MD [address] [place] [address] Physician Endocrinology 08/01/19 11/17/20 [facility], [facility] 02/04/20 Ralph Wilcox MD [address] [address] Gastroenterology 11/25/20 Otilia Paulson OD [address] [place] [address] Consulting Provider Optometry 11/25/20 Roselia Abernathy MD [address] [place] [address] Obstetrics and Gynecology 11/25/20 documented as of this encounter
--- OUTSIDE RECORDS SUMMARY | 2025-01-01 15:31 | XMS_ITS | Encounter Summary ---
Author Organization Formerly [facility] Address [address] [place] [address] Care Team Providers Care Design Specialist Name Role Phone Alison Aguirre APRN Primary Care Provider Soila Pineda ESCAPE WHEEL TOOTH CUTTER Unavailable [phone] Gayatri George APRN Primary Care Provider Neva Velásquez RN Unavailable Albaro Kellogg MD Unavailable Aging, Ages [facility] Unavailable [phone] Ralph Wilcox MD Unavailable [phone] Otilia Paulson OD Unavailable [phone] Roselia Abernathy MD Unavailable [phone] Gayatri George APRN Primary Care Provider Gayatri George APRN Unavailable [phone] Encounter Details Date Type Department Care Team (Late st Contact Info) Description 10/31/2017 Scanned Document [address] [phone] Alison Aguirre APRN [address] [place] [address] Social History Tobacco Use Types Packs/Day Years [...] on filedocumented in this encounter Care Teams Design Specialist Relationship Specialty Start Date End Date Alison Aguirre APRN PCP - General Internal Medicine 10/24/17 07/16/18 Gayatri George, ANA [address] [place] [address] PCP - General Family Medicine 07/17/18 11/17/20 Gayatri George, PLUGGER WORKER [address] [id number] PCP - General Family Medicine 11/25/20 01/20/21 Gayatri George, PLUGGER WORKER [address] [place] [address] PCP - [employer] Medicare Attributed 03/02/19 06/01/19 Soila Pineda MSW [address] [place] [address] [address] [facility] Refrigeration Technician 05/08/18 11/26/18 Neva Velásquez, RN [address] [address] [facility] Community Six Pack Packer 11/29/18 08/15/21 Albaro Kellogg MD [address] [place] [address] Physician Endocrinology 08/01/19 11/17/20 [facility] 02/04/20 Ralph Wilcox MD [address] [address] Gastroenterology 11/25/20 Otilia Paulson OD [address] [place] [address] Consulting Provider Optometry 11/25/20 Roselia Abernathy MD [address] [place] [address] Obstetrics and Gynecology 11/25/20 documented as of this encounter
--- OUTSIDE RECORDS SUMMARY | 2025-01-01 15:32 | XMS_ITS | Encounter Summary ---
Author Organization [facility] Address [address] [place] [address] Care Team Providers Care Brim Plater Name Role Phone [facility] Unavailable [phone] Ralph Wilcox MD Unavailable [phone] Otilia Paulson OD Unavailable [phone] Roselia Abernathy MD Unavailable [phone] Encounter Details Date Type Department Care Team (Late st Contact Info) Description 11/05/2024 Telephone [facility] [address] [place] [phone] Garry Chung Social History Tobacco Use Types [...] on filedocumented in this encounter Care Teams Brim Plater Relationship Specialty Start Date End Date [facility] 02/04/20 Ralph Wilcox MD [address] [place] [address] Gastroenterology 11/25/20 Otilia Paulson OD [address] [place] [address] Consulting Provider Optometry 11/25/20 Roselia Abernathy MD [address] [place] [address] Obstetrics and Gynecology 11/25/20 documented as of this encounter
--- OUTSIDE RECORDS SUMMARY | 2025-01-01 15:32 | XMS_ITS | Clinical Summary ---
Author Organization [facility] Address [address] [facility] [address] [place] [address] Phone Care Team Providers Care Antenna Installer Name Role Phone Tommie Suarez MD Primary [...] 1 Active ergocalciferol (VITAMIN D2) 1.25 MG (77994 UT) capsule @@TAKE 1 CAPSULE BY MOUTH [...] 10,000 UnitsIndications:Anemi a in chronic kidney disease 28075 Units IJ Weekly 11/12/2020 Active ferumoxytol (FERAHEME) injection 510 mgIndications:Other iron deficiency anemia 510 mg IV Once in dialysis 07/05/2021 Active Epoetin Sally-epbx solution 40,000 UnitsIndications:Anemi a in chronic kidney disease,Chronic kidney disease stage 4 (HCC),Hypertensive renal disease [address]366 Units IJ Every 7 days 07/15/2021 Active epoetin sally (EPOGEN,PROCRIT) injection 10,000 UnitsIndications:Anemi a due to Renal Failure 59039 Units IV Every 14 days 09/20/2022 Active [...] patient's age to complete this topic Insurance [facility] ([id number]) [facility] ([id number]) Care Teams Antenna Installer Relationship Specialty Start Date End Date Tommie Suarez MD [address] [id number] PCP - General 10/12/20
--- OUTSIDE RECORDS SUMMARY | 2025-01-01 15:32 | XMS_ITS | Encounter Summary ---
Author Organization [facility] Address [address] [facility] [facility] [address] [place] [address] Phone Care Team Providers Care Crew Attendant Name Role Phone Tommie Suarez MD Primary Care Provider Encounter Details Date Type Department Care Team (Late st Contact Info) Description 01/27/2021 Orders Only [facility] [address] [place] [phone] Leann Molina RN Social History Tobacco Use [...] on filedocumented in this encounter Care Teams Crew Attendant Relationship Specialty Start Date End Date Tommie Suarez MD 10 [facility] [address] [place] [address] PCP - General 10/12/20 documented as of this encounter
--- OUTSIDE RECORDS SUMMARY | 2025-01-01 15:32 | XMS_ITS | Clinical Summary ---
Author Organization [address] [facility] Address [address] [place] [address] Phone Care Team Providers Care Ship Superintendent Name Role Phone Eli Dill Primary Care Provider Allergies Active Allergy Reactions Criticality Noted Date Comments Baclofen Other 02/18/2019 Aphasia Aphasia Sulfa (Sulfonamide Antibiotics) Other,Swelling Medium 06/12/2017 Medications venlafaxine 225 mg 24 hr tablet Take 1 tablet (225 mg total) by mouth 1 (one) time each day. Active traZODone (DESYREL) 100 mg tablet Take 1 tablet (100 mg total) by mouth. Active pantoprazole (PROTONIX) 40 mg EC tablet Take 1 tablet (40 mg total) by mouth 1 (one) time each day. Active montelukast (SINGULAIR) 10 mg tablet Take 1 tablet (10 mg total) by mouth at bedtime. Active lurasidone (LATUDA) 20 mg tablet Take by mouth 1 (one) time each day. Active lactulose (CHRONULAC) solution Take 15 mL (10 g total) by mouth. Active isosorbide mononitrate (IMDUR) 30 mg 24 hr tablet TAKE ONE TABLET BY MOUTH EVERY DAY ^1R1 05/12/2023 Active insulin glargine (LANTUS) 100 unit/mL injection Inject under the skin. Active hydrALAZINE (APRESOLINE) 25 mg tablet Take 1 tablet (25 mg total) by mouth. 03/08/2022 Active gabapentin (NEURONTIN) 600 mg tablet Take 1 tablet (600 mg total) by mouth. Active gabapentin (NEURONTIN) 100 mg capsule Take 1 capsule (100 mg total) by mouth 2 (two) times a day. Active fluticasone-salm eterol (ADVAIR DISKUS) 250-50 mcg/dose diskus inhaler Inhale 1 puff by mouth. Active ferrous sulfate 325 mg (65 mg elemental iron) tablet Take 1 tablet (325 mg total) by mouth 2 (two) times a day. Active dulaglutide (Trulicity) 4.5 mg/0.5 mL pen injector injection Inject under the skin. Active docusate sodium (COLACE) 100 mg capsule Take 1 capsule (100 mg total) by mouth. Active diclofenac (VOLTAREN) 1 % topical gel Apply topically. Active desvenlafaxine 100 mg tablet extended release 24 hr Take 100 mg by mouth. Active cyclobenzaprine (FLEXERIL) 10 mg tablet Take 1 tablet (10 mg total) by mouth 3 (three) times a day if needed. Active clopidogreL (PLAVIX) 75 mg tablet Take 1 tablet (75 mg total) by mouth 1 (one) time each day. Active carvediloL (COREG) 6.25 mg tablet Take 1 tablet (6.25 mg total) by mouth. Active cariprazine (Vraylar) 1.5 mg capsule Take 1 capsule (1.5 mg total) by mouth 1 (one) time each day. Active calcitrioL (ROCALTROL) 0.25 mcg capsule Take 1 capsule (0.25 mcg total) by mouth 1 (one) time each day. Active buPROPion XL (WELLBUTRIN XL) 150 mg 24 hr tablet Take 1 tablet (150 mg total) by mouth. Active bumetanide (BUMEX) 2 mg tablet Take 1 tablet (2 mg total) by mouth 1 (one) time each day. Active atorvastatin (LIPITOR) 40 mg tablet Take 1 tablet (40 mg total) by mouth. Active aspirin 81 mg EC tablet Take 1 tablet (81 mg total) by mouth. Active acetaminophen (TYLENOL) 325 mg tablet Take 2 tablets (650 mg total) by mouth. Active Encounters Date Type Department Care Team Description 12/30/2024 1:20 PM EDT Consult Gastroenterology - [address] [phone] Gabriela Fisher PA History of colon polyps (Primary Dx); Gastroesophageal reflux disease, unspecified whether esophagitis present; Iron deficiency anemia, unspecified iron deficiency anemia type 12/10/2024 Telephone Gastroenterology - [address] [facility] [address] [address] [place] [address] Babar Zuleta MD 12/09/2024 Telephone Gastroenterology - [address] [place] [address] Babar Zuleta MD SPECIAL PROCEDURE from Last 3 Months Surgical History Surgery Date Site/Laterality Comments BYPASS GRAFT PROCEDURE: UT AMPUTATION TOE METATARSOPHALANGEAL JOINT; COMMENT: x3 OTHER SURGICAL HISTORY PROCEDURE: ---- OTHER ----; COMMENT: Reduction mammoplasty OTHER SURGICAL HISTORY PROCEDURE: ---- OTHER ----; COMMENT: Abdominoplasty COLONOSCOPY 01/30/2019 - 03/01/2019 tax1, serrated polypx1 (5yr) - [place] ESOPHAGOGASTRODUODENOSCOPY 11/30/2018 - 12/30/2018 unremarkable COLONOSCOPY 11/30/2018 - 12/30/2018 poor prep - was repteated 01/2019 OTHER SURGICAL HISTORY OTHER SURGICAL HISTORY 03/02/2019 - 03/31/2019 non bleeding small bowel avms [place] GI Medical History Medical History Date Comments Asthma DX:Asthma Diastolic CHF (CMS/HCC) DX:Diast olic CHF (HCC) HTN (hypertension) DX:HTN (hyper tension) HLD (hyperlipidemia) DX:HLD (hyp erlipidemia) Diabetes mellitus (CMS/HCC) DX:D iabetes mellitus (HCC) Diabetic neuropathy (CMS/HCC) DX :Diabetic neuropathy (HCC) CKD (chronic kidney disease) , stage IV (CMS/HCC) DX:CKD (chronic kidney disea se), stage IV (HCC); COMMENT: baseline creatinine 2.4 History of CVA [...] (CMS/HCC) DX:T2DM (type 2 diabetes rena litus) ([facility]) Acute kidney injury superimp osed on chronic kidney disease ([facility]) DX:Acute kidney injur y superimposed on chronic kidney disease ([facility]) JOHN (obstructive sleep apnea) DX :JOHN (obstructive sleep apnea) DVT prophylaxis DX:DVT prophylax is Severe anemia DX:Severe anemia COPD (chronic obstructive pu lmonary disease) ([facility]) DX:COPD (chronic obstructive pulmonary disease) ([facility]); COMMENT: not oxygen dependent Family History Medical History Relation Name Comments Diabetes Mother Heart failure Mother of [place] in her 70s Hypertension Mother Relation Name [...] Blood Pressure 124/70 01/11/2023 11:24 AM EDT Si tting L Arm Pulse 80 01/11/2023 11:24 AM EDT Temperature - - Respiratory Rate - - Oxygen Saturation - - Inhaled Oxygen Concentration - - Weight 91.6 kg (202 lb) 12/30/2024 1:09 PM EDT Height 167.6 cm (5' 6 ) 12/30/2024 1:09 PM EDT Body Mass Index 32.6 12/30/2024 1:09 PM EDT Plan of Treatment Upcoming Encounters Date Type Department Care Team (Late st Contact Info) Description 03/03/2025 12:30 PM EDT Appointment [facility] Endoscopy [address] [place] [phone] Corina Muse MD [address] [address] Health Maintenance Due Date Last Done Comments Diabetes: Annual Foot Exam 1970 Diabetes: Annual Retina Eye Exam 1970 DTaP,Tdap,and Td Vaccines (1 - Tdap) 1979 Pneumococcal Vaccine: 50+ Years (1 of 2 - PCV) 1979 Pneumococcal Vaccine: Pediatrics (0 to 5 Years) and At-Risk Patients (6 to 64 Years) (1 of 2 - PCV) 1979 Cervical Cancer Screening: Pap Smear 1981 Zoster Vaccines (1 of 2) 2010 Diabetes: Annual GFR (Glomerular Filtration Rate) 04/22/2020 04/22/2019, 12/13/2018, 11/29/2018, Additional history exists Breast Cancer Screening 06/12/2020 06/12/2018 RSV Immunization Adult Patients (1 - Risk 60-74 years 1-dose series) 2020 COVID-19 Vaccine (3 - Moderna risk series) 05/14/2021 04/16/2021, 03/19/2021 Cholesterol Screening (Lipid Panel) 09/03/2022 Depression Screening 09/03/2022 HIV Screening 09/03/2022 Hepatitis C Screening 09/03/2022 Medicare Annual Wellness Visit 09/03/2022 Social Influencers of Health Screening 09/03/2022 Hypertension/CHF/CAD Annual BMP Blood Test 09/11/2022 04/22/2019, 12/13/2018, 11/29/2018, Additional history exists Diabetes: Annual Urine Albumin-Creatinine Ratio (uACR) 09/14/2022 Diabetes: Blood Sugar Control Test (HGBA1C) 09/14/2022 04/30/2019 Influenza Vaccine (#1) 2024 Colorectal Cancer Screening: Colonoscopy 12/16/2034 12/16/2024 HIB Vaccines Aged Out No longer eligi [...] to complete this topic RSV Immunization Patients Under 20 months Aged Out No longer eligible based on patient's age to complete this topic Varicella Vaccines Aged Out No longer eligible based on patient's age to complete this topic Procedures Procedure Name Priority Date/Time Associated Diagnosis Comments COLONOSCOPY Routine 12/16/2024 2:32 PM EDT from Last 3 Months Results * COLONOSCOPY (12/16/2024 2:32 PM EDT) Anatomical Region Laterality Modality Endoscopy us Historical Provider GI~PROCEDURE ORDERABLES F inal Result from Last 3 Months Insurance MEDICARE Member Subscriber Plan / Payer (Ef fective 2020-Present) Name:Natalie Cutler Relation to Subscriber:Self Name:Natalie Cutler Payer ID:[id number] Group ID:[id number] Type:Not on file Address: [facility] [address] [phone] Advance Directives Documents on File Type Date Recorded Patient Slicing Machine Operator Expl anation Health Care Decision (hx) 01/16/2022 [...] (hx) 07/24/2021 AD OLIVIER DIRECTIVE Care Teams Ship Superintendent Relationship Specialty Start Date End Date Eli Dill PA [address] [place] [address] PCP - General Cardiology 12/09/24
--- OUTSIDE RECORDS SUMMARY | 2025-01-01 15:32 | XMS_ITS | Data Portability ---
Author Organization [employer] [place] [facility] [employer] Address [address] [place] [address] Care Team Providers Care Dissolver Operator Name Role Phone HIM CCA OTHER Assessment [...] Assessment and Plan as documented by the Company Laundry Worker. I provided real-time medical direction via phone [...] Assessment and Plan as documented by the Company Laundry Worker. Patient given the opportunity to ask questions. [...] chest pain or shortness of breath. Per contour path tape mill operator on the scene, Patient is leaning forward but not tripoding. She states that she normally breathes this way. She is not in distress but does appear uncomfortable. There is no increased work of breathing. Exam is not a warming to contour path tape mill operator on the scene. Her vital signs [...] Assessment and Plan as documented by the Company Laundry Worker. Patient given the opportunity to ask questions. As per above, patient with hypokalemia unresponsive to oral supplements. Per contour path tape mill operator on the scene, VSS, no symptoms. K is 2.6. Cr is 1.8. Impression: Hypokalemia - repeated critical values in the setting of CKD without ability to recheck and frequently monitor in this setting. Additionally unable to evaluate for low mag which could be contributing. Discussed with patient and she agrees given the urgency of the situation. Plan: Transported to [place] [facility]. Expect call made. Not available 06/09/2024 10:12:54 Plan of Treatment Reminders Order Date Submit Date Provider Last Modified By Organization Details Last Modified Time Details Appointments None recorded . Lab BMP, serum or plasma 2023 024 [facility], [address] [place] [address], [id number], 4 19:48:59 BMP, serum or plasma 2023 024 [facility], [address] [place] [address], [phone], 4 08:14:39 rapid flu (A+B) 2023 024 [facility], [address] [place] [address], [id number], 4 18:27:02 rapid SARS CoV 2 Ag, QL IA, respirat ory specimen 2023 024 [facility], [address] [place] [address], [id number], 4 18:27:18 respirat ory pathogen s DNA + RNA panel, ANITA+prob e, nasophar ynx 2023 024 [facility] (Centralized Electronic Ordering - All Locations), Patient Can Go To The Location Of Their Choice, [id number] 4 18:05:53 rapid SARS CoV 2 Ag, QL IA, respirat ory specimen [email or web address] [place] [address], [address] [place] [address], [id number], 3 15:56:56 Referral None recorded . Procedures None recorded . Surgeries None recorded . Imaging None recorded . Medication Orders tacho m chloride ER 20 mEq tablet,e xtended release 2023 024 [facility], [address] [place] [address], [id number], 23:08:22 Patient TargetsNo targets recorded. Patient InstructionsNo instructions recorded. Reason for Referral None Reported. Results Created Date Observation Date Name Description Value Unit Range Abnormal Flag Note LastModifiedBy Organization Detail LastModifiedTime 01/13/2001/12/2023 rapid SARS CoV 2 Ag, QL IA, respi rator y speci men rapid SARS CoV 2 Ag, QL IA, respiratory specimen negati ve Not Available [facility] ed [address] [place] [address], [id number], 01/12/2023 15:56:47 01/16/20 24 01/17/2024 COVID -19, FLU A+B AND RSV sars-cov-2, ANITA Not Detect ed not detect ed Not Available [facility] ([facility]) [address] [place], [address], 01/17/2024 18:05:53 01/16/20 24 01/17/2024 COVID -19, FLU A+B AND RSV influenza A, ANITA Detect ed not detect ed abnormal Not Available [facility] ([facility]) [address] [place], [address], 01/17/2024 18:05:53 01/16/20 24 01/17/2024 COVID -19, FLU A+B AND RSV influenza B, ANITA Not Detect ed not detect ed Not Available [facility] ([facility]) [address] [place], [address], 01/17/2024 18:05:53 01/16/20 24 01/17/2024 COVID -19, FLU A+B AND RSV RSV, ANITA Not Detect ed not detect ed Not Available [facility] ([facility]) [address] [place], [address], 01/17/2024 18:05:53 01/16/20 24 01/17/2024 COVID -19, [...] in this assay . Not Available [facility] ([facility]) [address] [facility], [place], [address], 01/17/2024 18:05:53 01/16/20 24 01/16/2024 rapid SARS CoV 2 Ag, QL IA, respi rator y speci men rapid SARS CoV 2 Ag, QL IA, respiratory specimen negati ve Not Available [facility] [address] [place] [address], [place], [address], 01/16/2024 15:11:23 01/16/20 24 01/16/2024 rapid flu (A+B) Flu negati ve Not Available [facility] [address] [facility], [place], [address], 01/16/2024 15:11:17 Result Notes None recorded. Medical [...] Not Available Not Available Not Available [employer] Lite kit active Not Available Not Avail [...] Details Last Updated DateTime 3 80 /min 657882 g 14 /min 96 % 96 % 162.56 cm 97.4 [degF] 150 mm[Hg] 65 mm[Hg] Not Available [facility] - production 3 13:52:48 Date Recorded Body temperature Body weight Respiratory rate Oxygen saturation Oxygen saturation in Arterial blood by Pulse oximetry Heart rate Systolic blood pressure Diastolic blood pressure Provider Name and Address Organization Details Last Updated DateTime 4 101 [degF] 76145.3 2 g 22 /min 93 % 93 % 102 /min 132 mm[Hg] 76 mm[Hg] Not Available [employer] 4 15:07:43 Date Recorded Heart rate Body weight Respiratory rate Oxygen saturation Oxygen saturation in Arterial blood by Pulse oximetry Body temperature Systolic blood pressure Diastolic blood pressure Provider Name and Address Organization Details Last Updated DateTime 4 86 /min 72520.8 08 g 16 /min 97 % 97 % 97.8 [degF] 176 mm[Hg] 80 mm[Hg] Not Available [employer] 4 12:47:36 Date Recorded Oxygen saturation Oxygen saturation in Arterial blood by Pulse oximetry Respiratory rate Body temperature Heart rate Systolic blood pressure Diastolic blood pressure Provider Name and Address Organization Details Last Updated DateTime 4 99 % 99 % 16 /min 98.1 [degF] 88 /min 182 mm[Hg] 90 mm[Hg] Not Available [employer] 4 09:00:34 Date Recorded Body temperature Heart [...] Updated DateTime 3 100.5 [degF] 92 /min 61904.1 76 g 14 /min 100 % 100 % 100.5 [degF] 92 /min 14 /min 100 % 100 % 49408.1 76 g 135 mm[Hg] 80 mm[Hg] 135 mm[Hg] 80 mm[Hg] Not Available [employer] 3 15:55:09 Social History None recorded. Functional [...] 278 Junaid Felix MD Main - [facility] [address] [place] [phone] 12/01/2021 15:12:14 06/02/2022 15:19:20 Nasal congestion 18036064 R09.81 Congestion of nasal sinus 06481288 R09.81 293 Dez Carrillo MD Main - [facility] [address] [place] [address] 0 12/02/2021 12:18:57 07/17/2022 14:20:33 1331 Easton Monahan MD Main - [facility] [address] [place] [address] 0 02/01/2022 16:35:18 06/09/2022 14:47:07 Congestive heart failure 63031634 I50.9 Patient presents with edema attriuted to CHF. She had already been seen in clinic earlier in the day and bumex dose was increased. There was no dyspnea or acute symptoms to merit IV loop diuretic administra tion at home. 2194 Rancho Polo MD Main - [facility] [address] [place], [place] [address] 0 03/18/2022 16:59:05 06/07/2022 12:12:53 Exposure to SARS-CoV-2 093647638 Z20.822 3618 Junaid Felix MD Main - [facility] [address] [place], [place] [phone] 05/30/2022 15:02:11 06/09/2022 12:57:37 Dyspnea on exertion 17888679 R06.09 6744 Beba Rios MD Main - [facility] [address] [place] [phone] 10/05/2022 17:31:55 10/07/2022 10:24:22 Acute viral bronchitis 904467356 J20.8 9412 Junaid Felix MD Main - [facility] [address] [place] [phone] 01/12/2023 15:54:12 01/17/2023 10:30:44 Viral gastroenteritis 601350057 A08.4 74652 Rancho Polo MD Main - [facility] [address] [place] [address] 03/02/2023 13:52:40 03/10/2023 10:46:13 Peripheral edema 307767982 R60.9 [id number] Rosetta Zhang MD Main - [address] [address] 01/16/2024 15:07:33 01/16/2024 22:27:10 Fever 431830686 R50.9 19812 Xiao Guerrero MD Main - [address] [address] 06/07/2024 12:44:50 06/10/2024 22:12:37 Hypokalemia 16725261 E87.6 I provided real -time medical direction via phone for this encounter, and was available for additional phone based assistance as needed. I have reviewed and agree with the Assessment and Plan as documented by the Company Laundry Worker. Patient given the opportunit y to ask questions. 63 yo seen yesterday in ED for hypokalemi a to 2.5, now being seen by [facility] for close follow up. Just started taking K supplments a few hours ago this am. Unclear the dose as these pills were placed in a pill pack (unable to separate/c larify dose per contour path tape mill operator) .Repeat lab 2.6. Will administer 80mEq and advised her to continue taking prescribed supplement al K. will request follow up with [facility] for POC labs on Saturday 06/09. Reviewed warning signs/sx. 33084 Rosetta Zhang MD Main - [address] [phone] 06/09/2024 09:00:29 06/10/2024 22:41:56 Hypokalemia 81294468 E87.6 Health Concerns Section Related Observation LastModified by Organization Detai ls LastModified Time None Recorded Concern Status LastModified by Organization Details LastModified Time None Recorded Advance Directives Directive None Recorded Payers Encounter Date Sequence Insurance Name Policy Number Policy Conde Covered Member ID Conde Member ID Guarantor Name 01/12/2023 1 [facility] - DOS PRIOR TO 2022 - DUAL ELIGIBLE (MEDICARE REPLACEMENT/AD VANTAGE - HMO) Natalie Cutler [id number] Natalie Cutler 03/02/2023 1 [facility] - DOS ON OR AFTER 2022 - DUAL ELIGIBLE - PENITENTIARY OPTIONS AND ONE CARE (MEDICARE REPLACEMENT/AD VANTAGE - HMO) Natalie Cutler [id number] Natalie Cutler 01/16/2024 1 [facility] - DOS ON OR AFTER 2022 - DUAL ELIGIBLE - PENITENTIARY OPTIONS AND ONE CARE (MEDICARE REPLACEMENT/AD VANTAGE - HMO) Natalie Cutler [id number] Natalie Cutler 06/07/2024 1 [facility] - DOS ON OR AFTER 2022 - DUAL ELIGIBLE - PENITENTIARY OPTIONS AND ONE CARE (MEDICARE REPLACEMENT/AD VANTAGE - HMO) Natalie Cutler [id number] Natalie Cutler 06/09/2024 1 [facility] - DOS ON OR AFTER 2022 - DUAL ELIGIBLE - PENITENTIARY OPTIONS AND ONE CARE (MEDICARE REPLACEMENT/AD VANTAGE - HMO) Natalie Cutler [id number] Natalie Bhupendra Cutler Notes Date Note Type [...] to be evaluated. Junaid Felix MD [address] [facility], [place], [address], [employer] 01/12/2023 15:58:30 03/02/2023 text/html CRC Nursing Assessment: [...] .................... .................... .................... .................... .................... .................... . Company Laundry Worker Note From Ramses Aguila: Pt caox3 in chair. Pt reports her left foot started swelling x7 days ago, got worse last night. Pt denies trauma, pain, difficulty breathing, dizziness or headache. [place] warm and dry, +1 pedal edema left [...] . Disposition: Fulfilled Rancho Polo MD [address] [facility], [place], [address], [employer] USABREANNE GONZALEZ 03/10/2023 08:51:17 01/16/2024 text/html CRC Nurse [...] denies any sob Rosetta Zhang MD [address] [facility], [place], [address], [facility] - [facility] 01/16/2024 17:54:07 06/07/2024 text/html CRC Nurse Triage [...] diuretic. Member agreeable to an [facility] visit. Company Laundry Worker Organization Information for [facility] [employer] Business Legal Name[facility] Address: [address] [place] [address], [place] [address], Supervisor Air Conditioning Installer: Damian Taylor MD CLIA No.: [id number] Company Laundry Worker POC Test Results from [facility] (13:27:22) pH: 7.388 pH units pCO2: 38.9 mmHg pO2: 54.6 mmHg Na: 138 mmol/L K: 2.6 mmol/L iCa: 1.10 mmol/L Cl: 100 mmol/L TCO2: 23.3 mEq/L Hct: 33 % Hb: 11.2 g/dL Glu: 505 mg/dL Lac: 4.20 mmol/L Cr: 1.77 mg/dL BUN: 17 mg/dL A .................... .................... .................... .................... .................... .................... .................... . Company Laundry Worker Note From Benigno Monique: Pt sts no [...] assessed, POc bloodwork k 2.6. Lungs clear. [facility] contacted and 80 ml/eq po given. [facility] scheduling Follow up POc bloodwork for Monday or Monday. Pt education on signs indicating the ER. Pt advised to follow up with pcp. .................... .................... .................... .................... .................... .................... .................... . Disposition: Fulfilled Xiao Guerrero MD [address] [facility],[address], [place], [address], [facility] - [facility] 06/07/2024 23:08:29 06/09/2024 text/html CRC Nurse Triage Notes (Anne Malave): Reason For Request: Revisit Chief Complaints: Electrolyte Imbalance PMH: Diabetes, Heart Disease, Hypertension, COPD/Asthma, CHF Other Allergies: baclofen and sulfur Comments: [facility] Remarksneeds follow up for [...] take a diuretic. Member agreeable to an [facility] visit. Company Laundry Worker Organization Information for Nish [employer] Business Legal Name: [facility] Address: [address] [place] [address], [place] [address], Supervisor Air Conditioning Installer: Damian Taylor MD CLIA No.: [id number] Company Laundry Worker POC Test Results from Nish Beyer [employer] [facility] (08:56:03) pH: 7.41 pH units pCO2: 36.3 mmHg pO2: 33.4 mmHg Na: 142 mmol/L K: 2.6 mmol/L iCa: 1.08 mmol/L Cl: 107 mmol/L TCO2: 22.6 mEq/L Hct: 34 % Hb: 11.5 g/dL Glu: 213 mg/dL Lac: 2.5 mmol/L Cr: 1.8 mg/dL BUN: 22 mg/dL A .................... .................... .................... .................... .................... .................... .................... . Company Laundry Worker Note From Nish Beyer: Today? s visit [...] Normal gait. Today? s potassium is 2.6. [facility] contacted and recommended the pt be seen in the ED. Pt agreeable to ambulance transport to [place]. SBAR to [facility]. .................... .................... .................... .................... .................... .................... .................... . Disposition: Fulfilled Rosetta Zhang MD [address] [facility], [place], [address], BREANNE TYSON 06/09/2024 10:13:32 OBGyn Episode No OBEpisode recorded.
== END ==
LOC: HO.CARD 12:56
PROVIDERS: Visit Provider Internal Medicine
DX: I50.9 Heart failure, unspecified (principal)
CPT/HCPCS: 93306

== ENCOUNTER → 2025-01-01 12:59 | Outpatient (BNV) | payer OTHER, SELFPAY | PROVIDERS: Visit Provider Internal Medicine | DX: I34.81 Nonrheumatic mitral (valve) annulus calcification (principal) | CPT/HCPCS: 93306 ==

== ENCOUNTER 2025-02-19 12:54 | Outpatient (AMB) | payer OTHER, SELFPAY ==
[2025-02-19 12:59] VITALS: BP 124/62; PULSE 80; BMI 32.0
--- NOTE | 2025-02-19 12:59 | A.OFFVIS_ITS ---
Vital Signs 02/19/25 12:59 Height 5 ft 6 in Weight 198 lb 6.656 oz BMI 32.0 BP 124/62 Blood Pressure Location Lt brachial Position Sitting Pulse 80 Intake Visit Reasons: f/up echo/ PVC records Intake Note: Follow-up after echo feeling good Electronic Design Engineer Required: No Allergies baclofen Allergy (Severe, Verified 11/21/24 14:36) can't move sulfacetamide Allergy (Severe, Verified 11/21/24 14:36) tongue swelling sulfur Allergy (Severe, Verified 11/21/24 14:36) tongue swelling Medication List - Last Reconciled 02/19/25 by Matias Winkler NP acetaminophen 325 mg PO Q4-6H PRN albuterol sulfate 90 mcg/actuation (Ventolin HFA) 2 puffs PO QID PRN allopurinol 100 mg PO DAILY 30 days aspirin 81 mg PO DAILY atorvastatin 40 mg PO DAILY blood sugar diagnostic (OneTouch Verio test strips) Test Blood Sugar 3 times a day As directed, 90 days blood sugar diagnostic (FreeStyle Lite Strips) USE DIRECTED TO TEST BLOOD SUGAR THREE TIMES DAILY blood-glucose meter (FreeStyle [place] Lite kit) As directed 3x/day blood-glucose meter (OneTouch Verio Flex Meter) Test Blood sugar As directed, 999 days bumetanide 0.5 mg PO DAILY 90 days bupropion HCl XL 150 mg PO QAM calcitriol 0.25 mcg PO DAILY cariprazine (Vraylar) 1.5 mg PO DAILY 30 days carvedilol orally daily; 25mg AM and 6.25mg PM 90 days carvedilol 25 mg PO QAM 90 days clopidogrel 75 mg PO DAILY 90 days dextrose 15 grams PO Q15M PRN diaper,brief,adult,disposable (Fitted Briefs Large) 3 times a day As directed, 30 days diaper,brief,adult,disposable (Comfort Shield Adult Diaper) Large. 3 times a day As directed, 90 days docusate sodium (Colace) 100 mg PO TID PRN 30 days dulaglutide (Trulicity) 4.5 mg (0.5 mL) subcut QWEEK empagliflozin (Jardiance) 10 mg PO DAILY epoetin sally (Procrit) 2,000 units IV 3XW ergocalciferol (vitamin D2) 1,250 mcg PO QWEEK famotidine 40 mg PO DAILY 90 days fluticasone propion-salmeterol 250-50 mcg/dose (Advair Diskus) 1 ea PO BID 30 days gabapentin 100 mg PO BID glucagon 3 mg/actuation (Baqsimi) 3 mg intranasal ONCE PRN 30 days hydralazine 50 mg PO TID 30 days insulin aspart U-100 (Novolog FlexPen U-100 Insulin aspart) 8 units (0.08 mL) subcut DAILY 30 days insulin glargine (Lantus Solostar U-100 Insulin) 40 units (0.4 mL) subcut QAM 30 days insulin lispro (Admelog U-100 Insulin lispro) 1 sliding scale dose subcut USEASDIRECTD iron sucrose (Venofer) 100 mg (5 mL) IV QWEEK 5 doses isosorbide mononitrate ER 30 mg PO DAILY 90 days lancets (Kaeuferportaluch Delica Plus Lancet) Test bood sugar 3 times a day, As directed, 90 days miscellaneous medical supply Disposable Absorbent Pads DX: Urinary incontinence As directed, 2 per night, duration 999 days, 30 day supply montelukast 10 mg PO DAILY pantoprazole 40 mg PO DAILY 30 days pen needle, diabetic As directed 4 times a day, 100 day supply polyethylene glycol 3350 (Miralax) 17 grams PO DAILY 14 days sennosides (Evac-U-Gen (sennosides)) 17.2 mg PO DAILY HPI Comments Details: This is a 64-year-old female patient coming in for a follow-up visit. Patient with medical history for hypertension, hyperlipidemia, diabetes, CKD, CHF, sleep apnea, and obesity. Patient has been seen previously by Cardiology at [facility] as well as at [facility] Cardiology. Patient has known wall motion abnormalities with previous echoes with an EF as low as 30-35%. It seems patient also had a nuclear stress test back in September of 2022 where it showed a large size infarct along the LV apex and inferolateral wall. Patient had refused cardiac catheterization for further evaluation. Patient was referred here in the past for establishing cardiology care and is now status post an echo. Today, patient reports continuing to feel well overall and denies any cardiac symptoms including exertional chest pain, shortness of breath, palpitations, dizziness, orthopnea, PND, leg edema, presyncope, or syncope. Patient uses a walker to get around and therefore mostly living a sedentary lifestyle. Patient states that she is compliant with all her medications. [facility] Medical History Sleep apnea Myocardial infarction CVA (cerebral vascular accident) Type 2 diabetes mellitus with diabetic polyneuropathy Chronic kidney disease, stage 4 (severe) Essential hypertension Hyperlipidemia LDL goal <70 Obesity due to excess calories Chronic, continuous use of opioids Chronic pain syndrome Spinal stenosis, lumbar region with neurogenic claudication Surgical History History of rotator cuff surgery History of abdominoplasty Status post breast reduction Hx of toe surgery Family History Father No problems noted. Mother Diabetes Hypertension Sister No problems noted. Sister No problems noted. Son No problems noted. Social History Household Members: Friend(s) Household Members Other:: roomate Housing: Apartment Alcohol intake: never Patient Tobacco Use Status: Former Tobacco user Tobacco use type: Cigarette Cigarette Packs Per Day: 0.5 e-Cigarette/Vaping Use: Never Used Second Hand Smoke Exposure: No Advance Directives Date on File: 07/07/20 service: No Current occupational status: disabled Current occupational exposures/hazards: No Cognitive needs: No Hearing needs: No Vision needs: No Review of Systems Const Denies chills, Denies fatigue, Denies fever(s), Denies frequent falls, Denies weakness, Denies weight gain and Denies weight loss ENT Denies dizziness Card Denies chest pain, Denies leg edema, Denies lightheadedness, Denies palpitations, Denies dyspnea, Denies dyspnea on exertion, Denies orthopnea and Denies other (loss of consciousness) Resp Denies cough, Denies dyspnea and Denies dyspnea on exertion GI Denies hematochezia and Denies change in stool character Musc Denies abnormal gait, Denies muscle weakness, Denies numbness, Denies radiating pain into limb and Denies tingling Neuro Denies abnormal gait, Denies dizziness, Denies frequent falls, Denies numbness, Denies tingling and Denies weakness Endo Denies fatigue and Denies palpitations Physical Exam Vital Signs: Last Vital Signs Pulse 80 02/19/25 12:59 BP 124/62 02/19/25 12:59 BMI result Body Mass Index 32.0 Const General: cooperative, healthy appearing, comfortable and no acute distress Orientation/consciousness: patient oriented x3 HEENT Head: Yes normal to inspection Neck Neck: Yes normal visual inspection, Yes trachea midline and Yes supple Chest Chest palpation & inspection: normal inspection of the chest Resp Effort & Inspection: normal respiratory effort Auscultation: clear to auscultation bilaterally, no crackles, no rales, no rhonchi and no wheezes Cardio Jugular venous distension: no JVD Palpation: normal PMI Rate: regular rate Rhythm: regular rhythm Heart sounds: S1 normal heart sound present, S2 normal heart sound present, no click, no gallops, no murmurs and no rubs Peripheral pulses: Peripheral pulses 2+ throughout GI Inspection: Yes normal to inspection Palpation (GI): Soft to palpation Auscultation: normal bowel sounds Skin General skin exam: no rashes or lesions noted Neuro General: patient oriented x3 Extrem General: Yes normal to inspection, No no pedal edema and No calf tenderness Psych Appearance: grossly normal Mental Status: mental status grossly normal Speech and movement: Normal speech and movement present Assessment & Plan Assessment & Plan (1) CHF (congestive heart failure): Code(s): I50.9 - Heart failure, unspecified Category: Medical Plan: 01/01/2025-echo study showed mildly reduced LV EF with no quantification. Possible inferior, inferoseptal and inferolateral hypokinesis. Clinically stable and euvolemic. Discussed echo results in detail and recommended cardiac catheterization to further assess the coronary arteries and evaluate the extent of ischemic changes. The procedure along with its indications, risks, and potential benefits was thoroughly discussed with the patient. However, patient continues to want to hold off on this. Patient understands the risks involved. Continue aspirin, Plavix, atorvastatin, Bumex, carvedilol, Jardiance, hydralazine therapy. Discussed in detail the signs and symptoms to watch for with heart failure. Advised low-salt diet, fluid restriction at 1.5-2 L daily, daily weight monitoring, and med compliance. (2) Type 2 diabetes mellitus with diabetic chronic kidney disease: Code(s): E11.22 - Type 2 diabetes mellitus with diabetic chronic kidney disease Category: Medical Qualifiers: Chronic kidney disease stage: stage 4 (severe) Diabetes mellitus chcf insulin use: with chcf use Qualified Code(s): E11.22 - Type 2 diabetes mellitus with diabetic chronic kidney disease; N18.4 - Chronic kidney disease, stage 4 (severe); Z79.4 - MCC (current) use of insulin Plan: Continue aggressive diabetes management with the goal of A1c less than 7%. CKD is being followed by Nephrology. (3) Essential hypertension: Code(s): I10 - Essential (primary) hypertension Category: Medical Plan: Blood pressure today is well-controlled. Continue current regimen. Advised monitoring blood pressures at home and keeping a log of it. Ideally, blood pressure goal less than 130/80. (4) Hyperlipidemia LDL goal <70: Code(s): E78.5 - Hyperlipidemia, unspecified Category: Medical Plan: No recent LDL. Continue statin therapy. We will get a lipid profile. Ideally, LDL goal less than 70. (5) JOHN on CPAP: Code(s): G47.33 - Obstructive sleep apnea (adult) (pediatric) Category: Medical Plan: Continue CPAP therapy. Advised heart healthy diet, regular exercise as tolerated, losing weight, med compliance, and aggressive management of vascular risk factors. Follow-up in 6 months. In the interim, patient will call the office with any concerns or change in symptoms. Advised patient to seek ER care in case of chest pain not resolved with rest. This note was generated using voice recognition software. While every effort has been made to ensure accuracy and proper willow machine tender, there may be occasional errors that could affect the content or meaning of the described symptoms. Orders: Orders Lipid Panel Today E78.5 - Hyperlipidemia, unspecified Coding Level of Care Code Est Pt Level 4 (56641) Complex EM visit Add On G2211 Diagnoses CHF (congestive heart failure) I50.9 Type 2 diabetes mellitus with stage 4 chronic kidney disease, with long-term current use of insulin E11.22; N18.4; Z79.4 Chronic kidney disease stage: stage 4 (severe) Diabetes mellitus intermediate accountant insulin use: with intermediate accountant use Essential hypertension I10 Hyperlipidemia LDL goal <70 E78.5 JOHN on CPAP G47.33 Time Spent (min) 34 Comment Time spent in reviewing the chart, test results, assessment, counseling and documentation.
--- OUTSIDE RECORDS SUMMARY | 2025-02-19 13:30 | XMS_ITS | Encounter Summary ---
Author Organization [facility] Address [address] [place] [address] Care Team Providers Care Application Security Specialist Name Role Phone Gayatri George APRN Primary Care Provider [phone] Neva Velásquez RN Unavailable Albaro Kellogg MD Unavailable [facility], [facility] Unavailable [phone] Ralph Wilcox MD Unavailable Otilia Paulson OD Unavailable [phone] Roselia Abernathy MD Unavailable [phone] Gayatri George APRN Primary Care Provider Gayatri George APRN Unavailable [phone] Encounter Details Date Type Department Care Team (Late st Contact Info) Description 05/03/2019 Scanned Document [facility] Endocrinology [address] [phone] Qi Aponte PA [address] [place] [address] [phone] Social History Tobacco Use Types Packs/Day Years Used Date Smoking Tobacco: Some Days Cigarettes Last attempted to quit: 2014 Smokeless Tobacco: Never Alcohol Use Standard Drinks/Week Comments Yes 0 (1 standard drink = 0.6 oz pur e alcohol) very rare, special occasion Comments No Sex and Gender Information Value Date Recorded Sex Assigned at Not on file Legal Sex Female 11:38 AM EDT Gender Identity Not on file Sexual Orientation Not on file documented as of this encounter Plan of Treatment Not on file documented as of this encounter Visit Diagnoses Not on filedocumented in this encounter Care Teams Application Security Specialist Relationship Specialty Start Date End Date Gayatri George APRN PCP - General Family Medicine 07/17/18 11/17/20 Gayatri George APRN PCP - General Family Medicine 11/25/20 01/20/21 Gayatri George APRN [address] [place] [address] PCP - [employer] Medicare Attributed 03/02/19 06/01/19 Neva Velásquez, RN [address] [facility] 4 [place] [address] [facility] Community Tax Adjuster 11/29/18 08/15/21 Albaro Kellogg MD [address] [place] [address] Physician Endocrinology 08/01/19 11/17/20 [facility] [place] [facility] 02/04/20 Ralph Wilcox MD [address] [place] [address] Gastroenterology 11/25/20 Otilia Paulson OD [address] [place] [address] Consulting Provider Optometry 11/25/20 Roselia Abernathy MD [address] [place] [address] Obstetrics and Gynecology 11/25/20 documented as of this encounter
--- OUTSIDE RECORDS SUMMARY | 2025-02-19 13:30 | XMS_ITS | Encounter Summary ---
Author Organization [facility] Address [address] [place] [address] Care Team Providers Care Tree Girdler Name Role Phone Gayatri George APRN Primary Care Provider [phone] Neva Velásquez RN Unavailable Albaro Kellogg MD Unavailable A[facility], [facility] Unavailable Ralph Wilcox MD Unavailable [phone] Otilia Paulson OD Unavailable [phone] Roselia Abernathy MD Unavailable [phone] Gayatri George APRN Primary Care Provider Encounter Details Date Type Department Care Team (Late st Contact Info) Description 09/18/2019 Scanned Document [address] [place] [phone] Gayatri George APRN [address] [place] [address] Social History Tobacco Use Types Packs/Day Years [...] filedocumented in this encounter Care Teams Tree Girdler Relationship Specialty Start Date End Date Gayatri George APRN PCP - General Family Medicine 07/17/18 11/17/20 Gayatri George APRN PCP - General Family Medicine 11/25/20 01/20/21 Neva Velásquez, JAMAR [address] [address] [facility] Community Cabinetmaker Maintenance 11/29/18 08/15/21 Albaro Kellogg MD [address] [place] [address] Physician Endocrinology 08/01/19 11/17/20 Aging, [facility] 02/04/20 Ralph Wilcox MD [address] [place] [address] Gastroenterology 11/25/20 Otilia Paulson OD [address] [place] [address] Consulting Provider Optometry 11/25/20 Roselia Abernathy MD [address] [place] [address] Obstetrics and Gynecology 11/25/20 documented as of this encounter
--- OUTSIDE RECORDS SUMMARY | 2025-02-19 13:30 | XMS_ITS | Encounter Summary ---
Author Organization [facility] Address [address] [place] [address] Care Team Providers Care Claims Counsel Name Role Phone Gayatri George APRN Primary Care Provider [phone] Neva Velásquez RN Unavailable Albaro Kellogg MD Unavailable Aging, [facility] Unavailable [phone] Ralph Wilcox MD Unavailable Otilia Paulson OD Unavailable [phone] Roselia Abernathy MD Unavailable [phone] Gayatri George APRN Primary Care Provider Gayatri George APRN Unavailable [phone] Encounter Details Date Type Department Care Team (Late st Contact Info) Description 05/01/2019 Scanned Document [facility] Endocrinology [address] [phone] Qi Aponte PA [address] [place] [address] [phone] Social History Tobacco Use Types Packs/Day Years [...] on filedocumented in this encounter Care Teams Claims Counsel Relationship Specialty Start Date End Date Gayatri George APRN PCP - General Family Medicine 07/17/18 11/17/20 Gayatri George APRN PCP - General Family Medicine 11/25/20 01/20/21 Gayatri George APRN [address] [place] [address] PCP - [employer] Medicare Attributed 03/02/19 06/01/19 Neva Velásquez, RN [address] [place] [address] [facility] 4 [place] [address] [facility] Community Printing Film Stripper 11/29/18 08/15/21 Albaro Kellogg MD [address] [place] [address] Physician Endocrinology 08/01/19 11/17/20 [facility] [place] [facility] 02/04/20 Ralph Wilcox MD [address] [place] [address] Gastroenterology 11/25/20 Otilia Paulson OD [address] [place] [address] Consulting Provider Optometry 11/25/20 Roselia Abernathy MD [address] [place] [address] Obstetrics and Gynecology 11/25/20 documented as of this encounter
--- OUTSIDE RECORDS SUMMARY | 2025-02-19 13:30 | XMS_ITS | Encounter Summary ---
Author Organization [facility] Address [address] [place] [address] Care Team Providers Care Earth Science Professor Name Role Phone Gayatri George APRN Primary Care Provider [phone] Neva Velásquez RN Unavailable Albaro Kellogg MD Unavailable Aging, [facility] Unavailable Ralph Wilcox MD Unavailable Otilia Paulson OD Unavailable [phone] Roselia Abernathy MD Unavailable [phone] Gayatri George APRN Primary Care Provider Gayatri George APRN Unavailable [phone] Encounter Details Date Type Department Care Team (Late st Contact Info) Description 05/01/2019 Scanned Document [facility] Endocrinology [address] [phone] Qi Aponte PA [address] [place] [address] [phone] Social History Tobacco Use Types Packs/Day Years [...] on filedocumented in this encounter Care Teams Earth Science Professor Relationship Specialty Start Date End Date Gayatri George APRN PCP - General Family Medicine 07/17/18 11/17/20 Gayatri George APRN PCP - General Family Medicine 11/25/20 01/20/21 Gayatri George APRN [address] [place] [address] PCP - [employer] Medicare Attributed 03/02/19 06/01/19 Neva Velásquez, RN [address] [place] [address] [facility] 4 [place] [address] [facility] Community Political Aide 11/29/18 08/15/21 Albaro Kellogg MD [address] [place] [address] Physician Endocrinology 08/01/19 11/17/20 [facility] [place] [facility] 02/04/20 Ralph Wilcox MD [address] [place] [address] Gastroenterology 11/25/20 Otilia Paulson OD [address] [place] [address] Consulting Provider Optometry 11/25/20 Roselia Abernathy MD [address] [place] [address] Obstetrics and Gynecology 11/25/20 documented as of this encounter
--- OUTSIDE RECORDS SUMMARY | 2025-02-19 13:30 | XMS_ITS | Patient Health Record ---
Author Organization [facility] Address [address] [facility] [address] [place] [address] Care Team Providers Care Customer Liaison Name Role Phone RADHA KACIE Primary Care Provider Unavailab BRANDYN Jones Unavailable [phone] Allergies Allergen (clinical drug ingredient) Drug/Non Drug [...] needed Inhalation qid Active Ergocalciferol 1.25 MG (17162 UT) 1 capsule Orally once a month [...] W/U Status Risk Notes Problem Essential hypertension (45364476) Essential (primary) hypertension (I10) Active confirmed Problem Disorder due to type 2 diabetes mellitus (495302932) Type 2 diabetes mellitus with unspecified complications (E11.8) Active confirmed Problem Recurrent major depression (77034105) Major depressive disorder, recurrent, unspecified (F33.9) Active confirmed Problem Obstructive sleep apnea syndrome (disorder) (08338780) Obstructive sleep apnea (adult) (pediatric) (G47.33) Active confirmed Problem Chronic pain syndrome (873516358) Chronic pain syndrome (G89.4) Active confirmed Problem Heart failure (32373595) Heart failure, unspecified (I50.9) Active confirmed Problem Uncomplicated asthma (disorder) (143111211) Unspecified asthma, uncomplicated (J45.909) Active confirmed Problem Gastro-esophageal reflux disease without esophagitis (852309201) Gastro-esophageal reflux disease without esophagitis (K21.9) Active confirmed Problem Chronic kidney disease (754125353) Chronic kidney disease, unspecified (N18.9) Active confirmed Plan Of Treatment Pending Test Test Name Order Date ANTI-HEPATITIS C 12/07/2020 HEP. B SURF. AG 12/07/2020 SYPHILIS TESTING 12/07/2020 HIV AB-AG 4TH GENERATION 12/07/2020 MM Digital Screening Mammogram 3D 2020 Insurance Providers Payer Name Payer Address Payer Phone Subscriber Number Group Number Insured Name Patient Relationship to Insured Coverage Start Date Coverage End Date [facility] [address] [address] [place] [phone] [id number] VIET BLAKE Self - patient is the [...] Amputation Hospitalization History Reason Date(Month/Year) CHF & [place] 2020
--- OUTSIDE RECORDS SUMMARY | 2025-02-19 13:30 | XMS_ITS | Clinical Summary ---
Author Organization [facility] Address [address] [place] [address] Care Team Providers Care Crank Hand Name Role Phone [facility] Unavailable [phone] Ralph Wilcox MD Unavailable [phone] Otilia Paulson OD Unavailable [phone] Roselia Abernathy MD Unavailable [phone] Allergies Active Allergy Reactions Criticality Noted Date Comments Baclofen Other (See Comments) 02/18/2019 Aphasia Sulfa Antibiotics Swelling Medium 06/12/2017 Medications * This document contains information received from the source organization and may not represent a complete record from that organization. albuterol (PROVENTIL HFA; VENTOLIN HFA) 108 (90 Base) MCG/ACT inhaler Inhale 2 puffs 4 times daily (every 6 hours) as needed for wheezing. Active aspirin enteric coated (ECOTRIN LOW STRENGTH) 81 MG EC tablet Take 81 mg by mouth daily. Active furosemide (LASIX) 40 MG tablet Take 40 mg by mouth daily. Active Blood Glucose Monitoring Suppl KitIndications:Controll ed type 2 diabetes mellitus with diabetic polyneuropathy, with long-term current use of insulin (HCC) USE TO CHECK FSBG 2 X DAILY. 1 kit 019 Active Lancets Thin Misc LancetIndications:Contr olled type 2 diabetes mellitus with diabetic polyneuropathy, with long-term current use of insulin ([facility]) Use to check FSBG 2 X daily. 200 lancet 019 Active lidocaine (XYLOCAINE) 4 % external solutionIndications:Farida betic polyneuropathy associated with type 2 diabetes mellitus ([facility]) Apply topically 4 (four) times a day as needed for mild pain. Do not apply more than 4 times daily. 50 mL 019 Active magnesium oxide 400 (241.3 Mg) MG Tab tabletIndications:Hypom agnesemia Take 1 tablet (400 mg total) by mouth daily. 90 tablet Active Insulin Pen Needle 32G X 4 MM MiscIndications:Type II or unspecified type diabetes mellitus with neurological manifestations, uncontrolled(250.62) ([facility]) Once nightly injection 120 pen needle 11 019 Active ACCU-CHEK ABNER PLUS stripIndications:Type II or unspecified type diabetes mellitus with neurological manifestations, uncontrolled(250.62) ([facility]) 4 times daily. 120 test strip 11 Active Continuous Blood Gluc Portrait Painter (FREESTYLE EMILE 14 DAY READER) DeviceIndications:Type II or unspecified type diabetes mellitus with neurological manifestations, uncontrolled(250.62) ([facility]) Apply 1 Device topically continuous. 1 Device 019 Active glucose blood (ACCU-CHEK ABNER PLUS) test stripIndications:Contro lled type 2 diabetes mellitus with diabetic polyneuropathy, with long-term current use of insulin ([facility]) TEST TWICE DAILY 200 test strip Active polyethylene glycol-electrolytes (NuLYTELY, TRILYTE) 420 g solution MIX AND DRINK UTD 0 019 Active Insulin Syringe-Needle U-100 (INSULIN SYRINGE 1CC/31GX5/16 ) 31G X 5/16 1 ML Misc U WITH EPOGEN Q 14 DAYS 1 019 Active SUPPLY DME MISCIndications:Stage 2 skin ulcer of sacral region ([facility]) Pressure relieving cushion 1 supply 019 Active Continuous Blood Gluc Sensor (FREESTYLE EMILE 14 DAY SENSOR) MiscIndications:Type II or unspecified type diabetes mellitus with neurological manifestations, uncontrolled(250.62) ([facility]) Apply 1 Device topically continuous. Apply new sensor every 14 days 6 each 3 Active amLODIPine (NORVASC) 10 MG tabletIndications:Essen tial hypertension Take 1 tablet (10 mg total) by mouth daily. 90 tablet 3 Active gabapentin (NEURONTIN) 600 MG tabletIndications:Diabe tic polyneuropathy associated with type 2 diabetes mellitus (HCC) Take 1 tablet (600 mg total) by mouth 3 (three) times a day. 270 tablet 2 Active lisinopril (PRINIVIL,ZeSTRIL) 40 MG tabletIndications:Essen tial hypertension Take 1 tablet (40 mg total) by mouth daily. 90 tablet Active hydrochlorothiazide (HYDRODIURIL) 12.5 MG tabletIndications:Essen tial hypertension Take 1 tablet (12.5 mg total) by mouth daily. 90 tablet Active montelukast (SINGULAIR) 10 MG tabletIndications:Moder ate persistent asthma, unspecified whether complicated Take 1 tablet (10 mg total) by mouth nightly. 90 tablet 019 Active PANTOprazole (PROTONIX) 40 MG EC tabletIndications:Gastr oesophageal reflux disease, esophagitis presence not specified Take 1 tablet (40 mg total) by mouth daily. 90 tablet 019 Active traZODone (DESYREL) 50 MG tabletIndications:Insom gayathri, unspecified type Take 1 tablet (50 mg total) by mouth nightly. 90 tablet Active atorvastatin (LIPITOR) 40 MG tabletIndications:Pure hypercholesterolemia Take 1 tablet (40 mg total) by mouth daily. 90 tablet 3 019 Active oxyCODONE-acetaminophen (PERCOCET) 5-325 mg per tabletIndications:Arthr itis Take 1 tablet by mouth 2 (two) times a day as needed for severe pain. Max Daily Amount: 2 tablets 30 tablet Active ferrous Sulfate dried (SLOW IRON) 160 (50 Fe) MG Tab CRIndications:Anemia due to stage 3 chronic kidney disease (HCC) Take 1 tablet (160 mg total) by mouth every morning with breakfast. 90 tablet 1 019 Active calcitRIOL (ROCALTROL) 0.25 MCG capsuleIndications:CKD stage 3 due to type 2 diabetes mellitus (HCC) Take 1 capsule (0.25 mcg total) by mouth daily. 90 capsule 3 019 Active meclizine (ANTIVERT) 12.5 MG tabletIndications:Verti go Take 1 tablet (12.5 mg total) by mouth 3 (three) times a day as needed for dizziness. 30 tablet 019 Active insulin lispro (HumaLOG KWIKPEN) 100 UNIT/ML pen injectionIndications:Un controlled type 2 diabetes mellitus with peripheral neuropathy Inject 0.2 mL (20 Units total) under the skin 3 (three) times a day before meals. 20 pen 3 019 Active epoetin sally (EPOGEN,PROCRIT) 80926 UNIT/ML injectionIndications:An emia, chronic renal failure, stage 4 (severe) ([facility]) Inject 2 mL (20,000 Units total) under the skin every 14 days (2 weeks). 14 mL 1 019 Active SYRINGE-NEEDLE, DISP, 3 ML (B-D 3CC LUER-LUCRETIA SYR 25GX1/2 ) 25G X 1-/2 3 ML MiscIndications:Anemia, chronic renal failure, stage 4 (severe) ([facility]) Please use to inject Procrit Q 14 days. 14 Syringe 1 019 Active PANTOprazole (PROTONIX) 40 MG EC tabletIndications:Gastr oesophageal reflux disease, esophagitis presence not specified TAKE 1 TABLET(40 MG) BY MOUTH EVERY MORNING BEFORE BREAKFAST 90 tablet 019 Active fluticasone-salmeterol (ADVAIR DISKUS) 250-50 mcg/inh diskus inhalerIndications:Mode rate persistent asthma, unspecified whether complicated Inhale 1 puff 2 (two) times a day. 3 Inhaler 3 019 Active triamcinolone (KENALOG) 0.1 % creamIndications:Dermat itis Apply topically 2 (two) times a day as needed for rash. To dry areas on ears. 30 g 019 Active buPROPion (WELLBUTRIN XL) 150 MG 24 hr tabletIndications:Curre nt mild episode of major depressive disorder without prior episode Take 1 tablet (150 mg total) by mouth every morning. Swallow whole; do not crush, chew, or divide. 90 tablet 3 019 Active LANTUS SOLOSTAR 100 UNIT/ML pen injectionIndications:Ty pe II or unspecified type diabetes mellitus with neurological manifestations, uncontrolled(250.62) ([facility]) INJECT SUBCUTANEOUSLY 20 UNITS DAILY 10 pen 3 019 Active dulaglutide (TRULICITY) 0.75 MG/0.5ML subcutaneous injectionIndications:Co ntrolled type 2 diabetes mellitus with diabetic polyneuropathy, with long-term current use of insulin ([facility]) Inject 0.5 mL (0.75 mg total) under the skin once a week. 4 pen 3 019 Active carvedilol (COREG) 6.25 MG tabletIndications:Essen tial hypertension TAKE 2 TABLETS(12.5 MG) BY MOUTH TWICE DAILY WITH MEALS 360 tablet 020 Active DULoxetine (CYMBALTA) 60 MG capsuleIndications:Diab etic polyneuropathy associated with type 2 diabetes mellitus ([facility]) Take 1 capsule (60 mg total) by mouth daily. 90 capsule 1 020 Active Active Problems Problem Noted Date Diagnosed [...] 60 mg daily. She is leaving for [place] next week, will be gone for 1 month. She will follow-up with me when she returns. Assessment & Plan (05/01/2019 3:41 PM EDT): Neurology recommended a trial of Cymbalta. Tapering instructions given for Zoloft. After tapered start Cymbalta 30 mg daily. She is leaving for [place] on 05/21 for 1 month, follow-up prior [...] was seeing one when she lived in [place]. She states that she had an EMG [...] function. She uses the pain medication sparingly. FRUIT OR NUT PICKER reviewed. She is willing to try Tramadol instead of Percocet. Follow up in 1 month. Shortness of breath 08/15/2018 Assessment & Plan (08/15/2018 6:10 PM EST): Shortness of breath specifically after eating. Order placed for a barium swallow to screen for a hiatal hernia. 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 Add Devonteir, follow up in a couple of week. [...] she has an upcoming appointment with the general service officer. Repeat A1c due in January. Assessment [...] & Plan (04/18/2019 7:31 AM EDT): Her jailer ordered repeat blood work, await these results. 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 Assessment & Plan (02/20/2019 3:32 PM EDT): Her jailer ordered repeat labs, anemia noted to be worse. He is increasing her Epogen. She has follow-up with him in April. Assessment & Plan (12/24/2018 1:27 PM EDT): Followed by nephrology, had recent labs. Epogen dosing was increased. She has follow-up at the end of December. Assessment & Plan (09/13/2018 12:49 PM EST): Patient had blood work done that was ordered by her jailer. Noted to be iron deficient, she will start 325 mg of ferrous sulfate daily. Assessment & Plan (08/15/2018 6:09 PM EST): Check iron panel, if this is normal I will start Epogen. Her jailer is in agreement. Vitamin D deficiency 06/26/2017 Abnormal iron saturation 06/26/2017 Anemia 06/26/2017 Assessment & Plan (06/14/2019 1:00 PM EDT): Followed by Dr. Bamu, our nursing staff set up an iron [...] her iron levels. I also spoke with [facility] and she has an appointment with [...] time. She is due to see her green building materials designer in September. Resolved Problems Problem Noted Date Diagnosed Date Resolved Date Stage 2 skin ulcer of sacral region 04/18/2019 06/14/2019 Assessment & Plan (05/01/2019 3:41 PM EDT): Much improved, almost completely healed. Continue with topical zinc daily. Assessment & Plan (04/18/2019 7:30 AM EDT): Prescription for pressure relieving pad given to patient. Also recommend applying [id number] zinc oxide twice daily. Follow-up in 2 weeks for reassessment. Follow-up surgery care 01/13/201802/20 Sexual dysfunction in females 01/11/2018 02/20/2019 Encounters Date Type Department Care Team Description 11/27/20[address] [facility] [address] [id number] Ralph Wilcox MD Results Request from Last 3 Months Family History Medical [...] 2020 Pap Smear (Ages 21-65) 05/02/2021 05/02/2018 COVID-19 Vaccine ( - 2023- season) 2024 Influenza Vaccine 05/02/2025 Colonoscopy 12/10/2028 12/10/2018 HIV Screening Completed 06/13/2017 [...] AM EDT Breast screening THINPREP PAP TEST (NARCOTICS AND VICE DETECTIVE) WITH HPV REFLEX Routine 05/02/2018 12:00 AM [...] factors. LDL-C is now calculated using the Mumtaz-Landin calculation, which is a validated novel method providing better accuracy than the Friedewald equation in the estimation of LDL-C. Mumtaz SS et al. MILAN. 2013;310(91): 2881-9967 (http://education.[employer]/faq/KDE617) Cholesterol/HDL Ratio 2.0 <5.0 (calc) [facility] [...] Performing Organization Information: ?Site ID: [id number] ?Name: [facility] ?Address: [address] [place] [address], [place] [address] ?Director: Shawn Goel MD us Brenda Tony MD LAB BLOOD ORDERABLES Final R esult [facility] NL[address] [place] [address], [place] [address] * (ABNORMAL) POCT Glycosylated Hemoglobin (Hb A1C) (04/30/2019 8:51 AM EDT) Pathologist [facility] Hemoglobin A1C 7.6(A) 4.0 - 6.0 % Lot Number 1 Sack Filler Pass Pass Blood specimen (specimen) 04/30/2019 8:51 AM EDT Albaro Kellogg MD POINT OF CARE TEST ORDERABLES Fi nal Result * (ABNORMAL) Basic Metabolic Panel (04/22/2019 1:11 [...] approximately 13% higher for people identified as -Citizen Of [place]. eGFR Non- 26(L) > OR = 60 [...] Performing Organization Information: ?Site ID: [id number] ?Name: [facility] ?Address: [address] [place] [address], [place] [address] ?Director: Shawn Goel MD Gurjit Baum MD LAB BLOOD ORDERABLES Final Resu lt [facility] NL1 [address] [facility] [address], [place] [address] * OPHTHALMOLOGY TESTING PROCEDURES (04/02/2019) External Provider HX AMB PROCEDURES Final Res ult * HX GASTROENTEROLOGY COLONOSCOPY-SCAN (12/10/2018) Gayatri George HEAD STOCK OPERATOR HX AMB PROCEDURES Final Re sult * MM Breast tomosynthesis screening-Bilateral (06/12/2018 9:04 [...] findings. ?? Roselia Abernathy MD IMG MAMMOGRAPHY ORDERABLE S Final Result * ThinPrep Pap Test (Hitting Coach) with HPV Reflex (05/02/2018 12:00 AM EDT) [...] has been evaluated with computer assisted technology. Footwear Sales Coordinator: JENNY FELICIANO NL1 Comment: [place], [place](ASCP) CT screening location: [facility] [address] [place], [place] ??[address] Comment [facility] NL1 Comment: EXPLANATORY NOTE: [...] Performing Organization Information: ?Site ID: [id number] ?Name: [facility] ?Address: [address] [place] [address], [place] [address] ?Director: Shawn Goel MD us Roselia Abernathy MD LAB AMB PATH/CYTO ORDERAB LES Final Result [facility] NL1 [address] [place] [address], [place] [address] * HIV 1/2 Ag/Ab CMIA Reflex to Confirmation (06/13/2017 9:51 AM EDT) HIV 1/2 Ag/Ab CMIA Negative Negative HOSPITAL LAB Comment: Results show no evidence of infection by HIV 1/2. If clinically indicated, repeat CMIA or test by nucleic acid amplification. Performed at [facility], [place], [place] ??CT License [id number] ??CLIA [id number] Blood specimen (specimen) 06/13/2017 9:51 AM EDT 06/13/2017 1:00 PM EDT us Alison E Kieltyka HEAD STOCK OPERATOR LAB BLOOD ORDERABLES Lisa l Result HOSPITAL LAB from Last 3 Months or Most Recently Relevant to Health Maintenance Insurance [facility] [employer] MGD MEDICARE [facility] Advance Directives * Full Code (Latest Code Status on File) Date Activated Date Inactivated Comments 01/07/2019 10:11 AM * Full Code Date Activated Date Inactivated Comments 12/26/2017 3:41 PM 02/06/2018 1:44 PM Question Answer Comments Decision Thoroughly Discussed with: Patient Care Teams Crank Hand Relationship Specialty Start Date End Date [facility] [place] 02/04/20 Ralph Wilcox MD [address] [place] [address] Gastroenterology 11/25/20 Otilia Paulson OD [address] [place] [address] Consulting Provider Optometry 11/25/20 Roselia Abernathy MD [address] [place] [address] Obstetrics and Gynecology 11/25/20
--- OUTSIDE RECORDS SUMMARY | 2025-02-19 13:30 | XMS_ITS | Encounter Summary ---
Author Organization [facility] Address [address] [place] [address] Care Team Providers Care Laundry Tech Name Role Phone Soila Pineda MSW Unavailable [phone] Gayatri George APRN Primary Care Provider [phone] Neva Velásquez RN Unavailable Albaro Kellogg MD Unavailable Aging, [place] [facility] Unavailable Ralph Wilcox MD Unavailable Otilia Paulson OD Unavailable [phone] Roselia Abernathy MD Unavailable Gayatri George APRN Primary Care Provider [phone] Gayatri George APRN Unavailable [phone] Encounter Details Date Type Department Care Team (Late st Contact Info) Description 09/11/2018 Scanned Document [address] [place] [phone] Provider, External, [address] [place] [address] Social History Tobacco Use Types Packs/Day Years Used Date Smoking Tobacco: Former Cigarettes Q uit: 2015 Smokeless Tobacco: Never Comments:quit smoking x 2yrs ago Alcohol Use Standard Drinks/Week Comments Yes 0 (1 standard drink = 0.6 oz pur e alcohol) socially Comments No Sex and Gender Information Value Date Recorded Sex Assigned at Not on file Legal Sex Female 11:38 AM EDT Gender Identity Not on file Sexual Orientation Not on file documented as of this encounter Plan of Treatment Not on file documented as of this encounter Visit Diagnoses Not on filedocumented in this encounter Care Teams Laundry Tech Relationship Specialty Start Date End Date Gayatri George, AGRICULTURAL EXTENSION AGENT [address] [place] [address] PCP - General Family Medicine 07/17/18 11/17/20 Gayatri George, AGRICULTURAL EXTENSION AGENT [address] [address] PCP - General Family Medicine 11/25/20 01/20/21 Gayatri George, AGRICULTURAL EXTENSION AGENT [address] [place] [address] PCP - [employer] Medicare Attributed 03/02/19 06/01/19 Soila Pineda, DOUGH SCALER AND MIXER [address] [place] [address] [facility] PCM+ Leak Patcher 05/08/18 11/26/18 Neva Velásquez, JAMAR [address] [place] [address] [facility] Community Bus Girl 11/29/18 08/15/21 Albaro Kellogg MD [address] [place], [place] [id number] Physician Endocrinology 08/01/19 11/17/20 [facility], [facility] 02/04/20 Ralph Wilcox MD [address] [place] [address], [place] [address] Gastroenterology 11/25/20 Otilia Paulson OD [address] [place] [address] Consulting Provider Optometry 11/25/20 Roselia Abernathy MD [address] [place] [address] Obstetrics and Gynecology 11/25/20 documented as of this encounter
--- OUTSIDE RECORDS SUMMARY | 2025-02-19 13:30 | XMS_ITS | Encounter Summary ---
Author Organization [facility] Address [address] [place] [address] Care Team Providers Care Profile Saw Setup Operator Name Role Phone Gayatri George APRN Primary Care Provider [phone] Neva Velásquez RN Unavailable Albaro Kellogg MD Unavailable Aging, [facility] Unavailable [phone] Ralph Wilcox MD Unavailable Otilia Paulson OD Unavailable [phone] Roselia Abernathy MD Unavailable [phone] Gayatri George APRN Primary Care Provider Encounter Details Date Type Department Care Team (Late st Contact Info) Description 09/11/2019 Scanned Document [address] [place] [phone] Gayatri George APRN [address] [place] [address] Social History Tobacco Use Types Packs/Day Years [...] on filedocumented in this encounter Care Teams Profile Saw Setup Operator Relationship Specialty Start Date End Date Gayatri George APRN PCP - General Family Medicine 07/17/18 11/17/20 Gayatri George APRN PCP - General Family Medicine 11/25/20 01/20/21 Neva Velásquez, JAMAR [address] [address] [facility] Community Psychiatrist 11/29/18 08/15/21 Albaro Kellogg MD [address] [place] [address] Physician Endocrinology 08/01/19 11/17/20 Aging, [facility] 02/04/20 Ralph Wilcox MD [address] [place] [address] Gastroenterology 11/25/20 Otilia Paulson OD [address] [place] [address] Consulting Provider Optometry 11/25/20 Roselia Abernathy MD [address] [place] [address] Obstetrics and Gynecology 11/25/20 documented as of this encounter
--- OUTSIDE RECORDS SUMMARY | 2025-02-19 13:31 | XMS_ITS | Encounter Summary ---
Author Organization [facility] Address [address] [place] [address] Care Team Providers Care Blue Line Operator Name Role Phone Alison Aguirre APRN Primary Care Provider [phone] Soila Pineda Unavailable [phone] Gayatri George APRN Primary Care Provider Neva Velásquez RN Unavailable Albaro Kellogg MD Unavailable Aging, [place] [facility] Unavailable [phone] Ralph Wilcox MD Unavailable [phone] Otilia Paulson OD Unavailable [phone] Roselia Abernathy MD Unavailable [phone] Gayatri George APRN Primary Care Provider [phone] Gayatri George APRN Unavailable [phone] Encounter Details Date Type Department Care Team (Late st Contact Info) Description 11/09/2017 Scanned Document [facility] & [facility] [place] [facility] - Cardiology [address] [place] [address] Brenda Tony MD [address] [place] [address] Social History Tobacco Use Types Packs/Day Years [...] on filedocumented in this encounter Care Teams Blue Line Operator Relationship Specialty Start Date End Date Alison Aguirre APRN PCP - General Internal Medicine 10/24/17 07/16/18 Gayatri George, INSURANCE AUDITOR [address] [place] [address] PCP - General Family Medicine 07/17/18 11/17/20 Gayatri George, INSURANCE AUDITOR [address] [address] PCP - General Family Medicine 11/25/20 01/20/21 Gayatri George, INSURANCE AUDITOR [address] [place] [address] PCP - [employer] Medicare Attributed 03/02/19 06/01/19 Soila Pineda, PRINTING PLATE MAKER [address] [place] [address] [facility] Vacuum Filter Operator 05/08/18 11/26/18 Neva Velásquez, RN [address] [facility] 4 [place] [address] [facility] Community Home Comfort Advisor 11/29/18 08/15/21 Albaro Kellogg MD [address] [place] [address] Physician Endocrinology 08/01/19 11/17/20 Aging, [facility] 02/04/20 Ralph Wilcox MD [address] [address] Gastroenterology 11/25/20 Otilia Paulson OD [address] [place] [address] Consulting Provider Optometry 11/25/20 Roselia Abernathy MD [address] [place] [address] Obstetrics and Gynecology 11/25/20 documented as of this encounter
--- OUTSIDE RECORDS SUMMARY | 2025-02-19 13:31 | XMS_ITS | Encounter Summary ---
Author Organization [facility] Address [address] [place] [address] Care Team Providers Care Orchid Superintendent Name Role Phone [facility] [place] [facility] Unavailable [phone] Ralph Wilcox MD Unavailable [phone] Otilia Paulson OD Unavailable [phone] Roselia Abernathy MD Unavailable [phone] Encounter Details Date Type Department Care Team (Late st Contact Info) Description 08/21/2024 Telephone [facility] [address] [place] [phone] Garry Chung Social History Tobacco Use Types [...] on filedocumented in this encounter Care Teams Orchid Superintendent Relationship Specialty Start Date End Date [facility], [place] [facility] 02/04/20 Ralph Wilcox MD [address] [address] Gastroenterology 11/25/20 [place] [address] [place] [address] Consulting Provider Optometry 11/25/20 Roselia Abernathy MD [address] [place] [address] Obstetrics and Gynecology 11/25/20 documented as of this encounter
--- OUTSIDE RECORDS SUMMARY | 2025-02-19 13:31 | XMS_ITS | Encounter Summary ---
Author Organization [facility] Address [address] [place] [address] Care Team Providers Care Visual Education Teacher Name Role Phone Alison Aguirre APRN Primary Care Provider [phone] Gurjit Baum MD Primary Care Provider [phone] Alison Aguirre APRN Primary Care Provider +[phone] Soila Pineda Unavailable +[phone] Gayatri George APRN Primary Care Provider [phone] Neva Velásquez RN Unavailable Albaro Kellogg MD Unavailable Aging, [facility] Unavailable [phone] Ralph Wilcox MD Unavailable [phone] Otilia Paulson OD Unavailable [phone] Roselia Abernathy MD Unavailable [phone] Gayatri George APRN Primary Care Provider Gayatri George APRN Unavailable [phone] Encounter Details Date Type Department Care Team (Late st Contact Info) Description 08/07/2017 Scanned Document [address] [phone] Alison Aguirre APRN [address] [place] [address] Social History Tobacco Use Types Packs/Day Years [...] on filedocumented in this encounter Care Teams Visual Education Teacher Relationship Specialty Start Date End Date Alison Aguirre APRN PCP - General Internal Medicine 06/06/17 10/15/17 Gurjit Baum MD [address] [place] [address] PCP - General Internal Medicine 10/16/17 10/23/17 Alison Aguirre APRN PCP - General Internal Medicine 10/24/17 07/16/18 Gayatri George APRN [address] [address] PCP - General Family Medicine 07/17/18 11/17/20 Gayatri George APRN [address] [id number] PCP - General Family Medicine 11/25/20 01/20/21 Gayatri George APRN [address] [place] [address] PCP - United Medicare Attributed 03/02/19 06/01/19 Soila Pineda, LANGUAGE ASSISTANT [address] [place] [address] ICP PCMH+ Business Office Coordinator 05/08/18 11/26/18 Neva Velásquez, RN [address] [place] [address] ICP Community Chin Strap Maker 11/29/18 08/15/21 Albaro Kellogg MD [address] [place] [address] Physician Endocrinology 08/01/19 11/17/20 Aging, [place] [facility] 02/04/20 Ralph Wilcox MD [address] [place] [address] Gastroenterology 11/25/20 Otilia Paulson OD [address] [place] [address] Consulting Provider Optometry 11/25/20 Roselia Abernathy MD [address] [place] [address] Obstetrics and Gynecology 11/25/20 documented as of this encounter
--- OUTSIDE RECORDS SUMMARY | 2025-02-19 13:31 | XMS_ITS | Encounter Summary ---
Author Organization [facility] Address [address] [place] [address] Care Team Providers Care Competitive Shopper Name Role Phone Gurjit Baum MD Primary Care Provider [phone] Alison Aguirre APRN Primary Care Provider [phone] Soila Pineda SUPERVISOR EPOXY FABRICATION Unavailable [phone] Gayatri George APRN Primary Care Provider + [phone] Neva Velásquez RN Unavailable Albaro Kellogg MD Unavailable Aging, [place] For [facility] Unavailable [phone] Ralph Wilcox MD Unavailable [phone] Otilia Paulson OD Unavailable [phone] Roselia Abernathy MD Unavailable [phone] Gayatri George APRN Primary Care Provider + [phone] Gayatri George APRN Unavailable [phone] Encounter Details Date Type Department Care Team (Late st Contact Info) Description 10/19/2017 Scanned Document [facility] [address] [place] [address] Provider, Generic Social History Tobacco Use Types [...] on filedocumented in this encounter Care Teams Competitive Shopper Relationship Specialty Start Date End Date Gurjit Baum MD [address] [place] [address] PCP - General Internal Medicine 10/16/17 10/23/17 Alison Aguirre APRN [address] [place] [address] PCP - General Internal Medicine 10/24/17 07/16/18 Gayatri George APRN [address] [address] PCP - General Family Medicine 07/17/18 11/17/20 Gayatri George APRN [address] [address] PCP - General Family Medicine 11/25/20 01/20/21 Gayatri George APRN 30 [place] [address] PCP - United Medicare Attributed 03/02/19 06/01/19 Soila Pineda MSW [address] 4 [place] [address] ICP PCMH+ Consignee 05/08/18 11/26/18 Neva Velásquez, RN [address] [place] [address] ICP Community Corporate General Manager 11/29/18 08/15/21 Albaro Kellogg MD [address] [place] [address] Physician Endocrinology 08/01/19 11/17/20 Aging, [facility] 02/04/20 Ralph Wilcox MD [address] [place] [address] Gastroenterology 11/25/20 Otilia Paulson OD [address] [place] [address] Consulting Provider Optometry 11/25/20 Roselia Abernathy MD [address] [place] [address] Obstetrics and Gynecology 11/25/20 documented as of this encounter
--- OUTSIDE RECORDS SUMMARY | 2025-02-19 13:31 | XMS_ITS | Encounter Summary ---
Author Organization [facility] Address [address] [place] [address] Care Team Providers Care Billing Associate Name Role Phone Alison Aguirre APRN Primary Care Provider [phone] Gurjit Baum MD Primary Care Provider [phone] Alison Aguirre APRN Primary Care Provider [phone] Soila Pineda Unavailable +[phone] Gayatri George APRN Primary Care Provider Neva Velásquez RN Unavailable Albaro Kellogg MD Unavailable Aging, [place] [facility] Unavailable [phone] Ralph Wilcox MD Unavailable [phone] Otilia Paulson OD Unavailable Roselia Abernathy MD Unavailable [phone] Gayatri George APRN Primary Care Provider [phone] Gayatri George APRN Unavailable [phone] Reason for Visit * Reason Comments Medication Refill Encounter Details Date Type Department Care Team (Late st Contact Info) Description 07/15/[address] [address] Alison Aguirre APRN [address] [place] [address] Hypertension, unspecified type Social History Tobacco Use [...] type documented in this encounter Care Teams Billing Associate Relationship Specialty Start Date End Date Alison Aguirre APRN PCP - General Internal Medicine 06/06/17 10/15/17 Gurjit Baum MD [address] [place] [address] PCP - General Internal Medicine 10/16/17 10/23/17 Alison Aguirre APRN PCP - General Internal Medicine 10/24/17 07/16/18 Gayatri George APRN [address] [phone] PCP - General Family Medicine 07/17/18 11/17/20 Gayatri George APRN [address] [place] [id number] PCP - General Family Medicine 11/25/20 01/20/21 Gayatri eGorge APRN [address] [place] [address] PCP - United Medicare Attributed 03/02/19 06/01/19 Soila Pineda, WIRE INSULATOR [address] [place] [address] ICP PCMH+ Computer Networking Instructor 05/08/18 11/26/18 Neva Velásquez, RN [address] [place] [address] ICP Community Sales Office Manager 11/29/18 08/15/21 Albaro Kellogg MD [address] [place] [address] Physician Endocrinology 08/01/19 11/17/20 [facility], [place] [facility] 02/04/20 Ralph Wilcox MD [address] [address] Gastroenterology 11/25/20 Otilia Paulson OD [address] [place] [address] Consulting Provider Optometry 11/25/20 Roselia Abernathy MD [address] [place] [address] Obstetrics and Gynecology 11/25/20 documented as of this encounter
--- OUTSIDE RECORDS SUMMARY | 2025-02-19 13:31 | XMS_ITS | Encounter Summary ---
Author Organization [facility] Address [address] [place] [address] Care Team Providers Care Buffer Copper Name Role Phone Gayatri George APRN Primary Care Provider [phone] Neva Velásquez RN Unavailable Albaro Kellogg MD Unavailable Aging, [facility] Unavailable Ralph Wilcox MD Unavailable Otilia Paulson OD Unavailable Roselia Abernathy MD Unavailable [phone] Gayatri George STAFF CONSULTANT Primary Care Provider Gayatri George APRN Unavailable [phone] Reason for Visit * Reason Comments Medication Refill Encounter Details Date Type Department Care Team (Late st Contact Info) Description 03/23/[address] [place] [phone] Gayatri George, STAFF CONSULTANT [address] [place] [address] Depression, unspecified depression type (Primary Dx) Social [...] Primary documented in this encounter Care Teams Buffer Copper Relationship Specialty Start Date End Date Gayatri George APRN PCP - General Family Medicine 07/17/18 11/17/20 Gayatri George APRN PCP - General Family Medicine 11/25/20 01/20/21 Gayatri George APRN 30 [place] [address] PCP - United Medicare Attributed 03/02/19 06/01/19 Neva Velásquez, RN [address] [address] [facility] Community Methods Specialist Engineer 11/29/18 08/15/21 Albaro Kellogg MD [address] [place] [address] Physician Endocrinology 08/01/19 11/17/20 Aging, [place] [facility] 02/04/20 Ralph Wilcox MD [address] [place] [address] Gastroenterology 11/25/20 Otilia Paulson OD [address] [place] [address] Consulting Provider Optometry 11/25/20 Roselia Abernathy MD [address] [place] [address] Obstetrics and Gynecology 11/25/20 documented as of this encounter
--- OUTSIDE RECORDS SUMMARY | 2025-02-19 13:31 | XMS_ITS | Encounter Summary ---
Author Organization [facility] Address [address] [place] [address] Care Team Providers Care Global Marketing Specialist Name Role Phone Alison Aguirre APRN Primary Care Provider [phone] Soila Pineda Unavailable [phone] Gayatri George APRN Primary Care Provider Neva Velásquez RN Unavailable Albaro Kellogg MD Unavailable Aging, [place] For [facility] Unavailable [phone] Ralph Wilcox MD Unavailable [phone] Otilia Paulson OD Unavailable [phone] Roselia Abernathy MD Unavailable [phone] Gayatri George APRN Primary Care Provider Gayatri George APRN Unavailable [phone] Encounter Details Date Type Department Care Team (Late st Contact Info) Description 02/27/2018 Scanned Document [facility] [address] [facility] [address] [place] [address] Jorge Quiñones, ROSHAN 201 [facility] [address] [place] [address] Social History Tobacco Use Types Packs/Day Years [...] on filedocumented in this encounter Care Teams Global Marketing Specialist Relationship Specialty Start Date End Date Alison Aguirre APRN PCP - General Internal Medicine 10/24/17 07/16/18 Gayatri George, SCRUBBER OPERATOR [address] [facility] 4 [place] [address] PCP - General Family Medicine 07/17/18 11/17/20 Gayatri George, SCRUBBER OPERATOR [address] [place] [address] PCP - General Family Medicine 11/25/20 01/20/21 Gayatri George, SCRUBBER OPERATOR 30 [place] [address] PCP - United Medicare Attributed 03/02/19 06/01/19 Soila Pineda, WAREHOUSE MATERIAL HANDLER [address] 4 [place] [address] [facility]+ Cylinder Press Operator 05/08/18 11/26/18 Neva Velásquez, RN [address] David [facility] 4 [place] [address] [facility] Community Meat Puller 11/29/18 08/15/21 Albaro Kellogg MD [address] [place] [address] Physician Endocrinology 08/01/19 11/17/20 Aging, [facility] 02/04/20 Ralph Wilcox MD [address] [address] Gastroenterology 11/25/20 [place] [address] [place] [address] Consulting Provider Optometry 11/25/20 Roselia Abernathy MD [address] [place] [address] Obstetrics and Gynecology 11/25/20 documented as of this encounter
--- OUTSIDE RECORDS SUMMARY | 2025-02-19 13:31 | XMS_ITS | Encounter Summary ---
Author Organization [facility] Address [address] [place] [address] Care Team Providers Care Rag Room Supervisor Name Role Phone Gayatri George APRN Primary Care Provider [phone] Neva Velásquez RN Unavailable Albaro Kellogg MD Unavailable Aging, [facility] Unavailable Ralph Wilcox MD Unavailable Otilia Paulson OD Unavailable [phone] Roselia Abernathy MD Unavailable [phone] Gayatri George APRN Primary Care Provider Gayatri George APRN Unavailable [phone] Encounter Details Date Type Department Care Team (Late st Contact Info) Description 01/15/2019 Telephone [facility] [place] [facility] Neurology [address] [address] Any Devine PA 462 [facility] 201 [place], [place] [id number] Social History Tobacco Use Types Packs/Day Years [...] WITH YOU. PT CONTACT INFORMATION IS FOLLOWS [phone] PLEASE CALL YOU DO NOT HAVE AN APT UNTIL 01/31/2019 documented in this encounter Plan of Treatment Not on file documented as of this encounter Visit Diagnoses Not on filedocumented in this encounter Care Teams Rag Room Supervisor Relationship Specialty Start Date End Date Gayatri George APRN PCP - General Family Medicine 07/17/18 11/17/20 Gayatri George APRN PCP - General Family Medicine 11/25/20 01/20/21 Gayatri George APRN [address] [place] [address] PCP - United Medicare Attributed 03/02/19 06/01/19 Neva Velásquez, RN [address] David [facility] 4 [place] [address] [facility] Community Marketing Traffic Manager 11/29/18 08/15/21 Albaro Kellogg MD [address] [place] [address] Physician Endocrinology 08/01/19 11/17/20 Aging, [place] [facility] 02/04/20 Ralph Wilcox MD [address] [place] [address] Gastroenterology 11/25/20 Otilia Paulson OD [address] [place] [address] Consulting Provider Optometry 11/25/20 Roselia Abernathy MD [address] [place] [address] Obstetrics and Gynecology 11/25/20 documented as of this encounter
--- OUTSIDE RECORDS SUMMARY | 2025-02-19 13:31 | XMS_ITS | Encounter Summary ---
Author Organization [facility] Address [address] [place] [address] Care Team Providers Care Sales Development Consultant Name Role Phone Alison Aguirre APRN Primary Care Provider [phone] Soila Pineda Unavailable [phone] Gayatri George APRN Primary Care Provider Neva Velásquez RN Unavailable Albaro Kellogg MD Unavailable Aging, [place] For [facility] Unavailable [phone] Ralph Wilcox MD Unavailable [phone] Otilia Paulson OD Unavailable [phone] Roselia Abernathy MD Unavailable [phone] Gayatri George APRN Primary Care Provider + [phone] Gayatri George APRN Unavailable [phone] Encounter Details Date Type Department Care Team (Late st Contact Info) Description 12/21/2017 Telephone [facility] [address] [place] [address] Juan Miguel Pollard MD Social History Tobacco Use Types Packs/Day Years [...] filedocumented in this encounter Care Teams Sales Development Consultant Relationship Specialty Start Date End Date Alison Aguirre APRN PCP - General Internal Medicine 10/24/17 07/16/18 Gayatri George, JAR CAPPER [address] [address] PCP - General Family Medicine 07/17/18 11/17/20 Gayatri George, JAR CAPPER [address] [address] PCP - General Family Medicine 11/25/20 01/20/21 Gayatri George, JAR CAPPER 30 [place] [address] PCP - [place] Medicare Attributed 03/02/19 06/01/19 Soila Pineda, VP CARDIOVASCULAR [address] [address] [facility]+ Hand Endband Cutter 05/08/18 11/26/18 Neva Velásquez, RN [address] [address] ICP Community Dietitian Research 11/29/18 08/15/21 Albaro Kellogg MD [address] [place] [address] Physician Endocrinology 08/01/19 11/17/20 Aging, [facility] 02/04/20 Ralph Wilcox MD [address] [place] [address] Gastroenterology 11/25/20 Otilia Paulson OD [address] [place] [address] Consulting Provider Optometry 11/25/20 Roselia Abernathy MD [address] [place], [place] [address] Obstetrics and Gynecology 11/25/20 documented as of this encounter
--- OUTSIDE RECORDS SUMMARY | 2025-02-19 13:31 | XMS_ITS | Encounter Summary ---
Author Organization [facility] Address [address] [place] [address] Care Team Providers Care Undercollar Maker Name Role Phone Soila Pineda Unavailable [phone] Gayatri George APRN Primary Care Provider [phone] Neva Velásquez RN Unavailable Albaro Kellogg MD Unavailable Aging, [place] [facility] Unavailable [phone] Ralph Wilcox MD Unavailable [phone] Otilia Paulson OD Unavailable [phone] Roselia Abernathy MD Unavailable [phone] Gayatri George APRN Primary Care Provider [phone] Gayatri George APRN Unavailable [phone] Encounter Details Date Type Department Care Team (Late st Contact Info) Description 08/30/2018 Scanned Document [facility] [place] 85 [facility] [address] [place] [address] Delilah Domingo, DPM 201 [facility] [address] [place] [address] Social History Tobacco Use Types Packs/Day Years [...] on filedocumented in this encounter Care Teams Undercollar Maker Relationship Specialty Start Date End Date Gayatri George, ANA [address] [address] PCP - General Family Medicine 07/17/18 11/17/20 Gayatri George APRN [address] [address] PCP - General Family Medicine 11/25/20 01/20/21 Gayatri George, ANA [address] [place] [address] PCP - United Medicare Attributed 03/02/19 06/01/19 Soila Pineda, BUTCHER FISH [address] [address] ICP PCMH+ Mobility Architect Manager 05/08/18 11/26/18 Neva Velásquez, JAMAR [address] [address] ICP Community Forensic Structural Engineer 11/29/18 08/15/21 Albaro Kellogg MD [address] [place] [address] Physician Endocrinology 08/01/19 11/17/20 [facility], [facility] 02/04/20 Ralph Wilcox MD [address] [place] [address], [place] [address] Gastroenterology 11/25/20 Otilia Paulson OD [address] [place] [address] Consulting Provider Optometry 11/25/20 Roselia Abernathy MD [address] [place] [address] Obstetrics and Gynecology 11/25/20 documented as of this encounter
--- OUTSIDE RECORDS SUMMARY | 2025-02-19 13:31 | XMS_ITS | Encounter Summary ---
Author Organization [facility] Address [address] [place] [address] Care Team Providers Care Portfolio Lead Name Role Phone Gayatri George APRN Primary Care Provider [phone] Neva Velásquez RN Unavailable Albaro Kellogg MD Unavailable Aging, [facility] Unavailable Ralph Wilcox MD Unavailable Otilia Paulson OD Unavailable [phone] Roselia Abernathy MD Unavailable [phone] Gayatri George APRN Primary Care Provider Gayatri George APRN Unavailable [phone] Encounter Details Date Type Department Care Team (Late st Contact Info) Description 03/13/2019 Scanned Document [facility] Endocrinology [address] [phone] Qi Aponte PA [address] [place] [id number] Social History Tobacco Use Types Packs/Day Years [...] on filedocumented in this encounter Care Teams Portfolio Lead Relationship Specialty Start Date End Date Gayatri George APRN PCP - General Family Medicine 07/17/18 11/17/20 Gayatri George APRN PCP - General Family Medicine 11/25/20 01/20/21 Gayatri George APRN 30 [place] [address] PCP - [place] Medicare Attributed 03/02/19 06/01/19 Neva Velásquez, RN [address] [place] [address] David [facility] 4 [place] [address] [facility] Community Assistant Foreman 11/29/18 08/15/21 Albaro Kellogg MD [address] [place] [address] Physician Endocrinology 08/01/19 11/17/20 [facility], [place] [facility] 02/04/20 Ralph Wilcox MD [address] [place] [address] Gastroenterology 11/25/20 Otilia Paulson OD [address] [place] [address] Consulting Provider Optometry 11/25/20 Roselia Abernathy MD [address] [place] [address] Obstetrics and Gynecology 11/25/20 documented as of this encounter
--- OUTSIDE RECORDS SUMMARY | 2025-02-19 13:31 | XMS_ITS | Encounter Summary ---
Author Organization [facility] Address [address] [place] [address] Care Team Providers Care Residential Carpenter Name Role Phone Soila Pineda Unavailable [phone] Gayatri George APRN Primary Care Provider [phone] Neva Velásquez RN Unavailable Albaro Kellogg MD Unavailable Aging, [place] For [facility] Unavailable [phone] Ralph Wilcox MD Unavailable [phone] Otilia Paulson OD Unavailable [phone] Roselia Abernathy MD Unavailable [phone] Gayatri George APRN Primary Care Provider Gayatri George APRN Unavailable [phone] Encounter Details Date Type Department Care Team (Late st Contact Info) Description 10/10/2018 Scanned Document [facility] [address] [place] [address] Pulmonary, Scan Social History Tobacco Use Types [...] on filedocumented in this encounter Care Teams Residential Carpenter Relationship Specialty Start Date End Date Gayatri George, GROUNDWATER PROGRAMS DIRECTOR [address] [place] [address] PCP - General Family Medicine 07/17/18 11/17/20 Gayatri George, GROUNDWATER PROGRAMS DIRECTOR [address] y [address] [address] PCP - General Family Medicine 11/25/20 01/20/21 Gayatri George, GROUNDWATER PROGRAMS DIRECTOR [address] [place] [address] PCP - [place] Medicare Attributed 03/02/19 06/01/19 Solia Pineda, CLINICAL REVIEW SPECIALIST [address] y [address] [address] ICP PCMH+ Single Stroke Preformer 05/08/18 11/26/18 Neva Velásquez, RN [address] y [address] [address] [facility] Community Candy Spreader Helper 11/29/18 08/15/21 Albaro Kellogg MD [address] [place] [address] Physician Endocrinology 08/01/19 11/17/20 Aging, [facility] 02/04/20 Ralph Wilcox MD [address] [address] Gastroenterology 11/25/20 [place] [address] [place] [address] Consulting Provider Optometry 11/25/20 Roselia Abernathy MD 1 [place] [address] Obstetrics and Gynecology 11/25/20 documented as of this encounter
--- OUTSIDE RECORDS SUMMARY | 2025-02-19 13:31 | XMS_ITS | Encounter Summary ---
Author Organization [facility] Address [address] [place] [address] Care Team Providers Care Surveillance Specialist Name Role Phone Alison Aguirre APRN Primary Care Provider Soila Pineda BIODIESEL PROCESS CONTROL TECHNICIAN Unavailable [phone] Gayatri George APRN Primary Care Provider Neva Velásquez RN Unavailable Albaro Kellogg MD Unavailable Aging, [place] For [facility] Unavailable [phone] Ralph Wilcox MD Unavailable [phone] Otilia Paulson OD Unavailable [phone] Roselia Abernathy MD Unavailable [phone] Gayatri George APRN Primary Care Provider Gayatri George APRN Unavailable [phone] Encounter Details Date Type Department Care Team (Late st Contact Info) Description 11/28/2017 Scanned Document [address] [phone] Alison Aguirre APRN [address] [place] [address] Social History Tobacco Use Types Packs/Day Years [...] on filedocumented in this encounter Care Teams Surveillance Specialist Relationship Specialty Start Date End Date Alison Aguirre APRN PCP - General Internal Medicine 10/24/17 07/16/18 Gayatri George, DIESEL ENGINE MECHANIC APPRENTICE [address] [facility] 4 [place] [address] PCP - General Family Medicine 07/17/18 11/17/20 Gayatri George, DIESEL ENGINE MECHANIC APPRENTICE [address] [place] [address] 4 [place] [address] PCP - General Family Medicine 11/25/20 01/20/21 Gayatri George, DIESEL ENGINE MECHANIC APPRENTICE 30 [place] [address] PCP - [place] Medicare Attributed 03/02/19 06/01/19 Soila Pineda, BIODIESEL PROCESS CONTROL TECHNICIAN [address] [place] [address] [facility]+ Framework Developer 05/08/18 11/26/18 Neva Veláqsuez, RN [address] [facility] 4 [place] [address] [facility] Community Locum Tenens Hospitalist 11/29/18 08/15/21 Albaro Kellogg MD [address] [place] [address] Physician Endocrinology 08/01/19 11/17/20 Aging, [facility] 02/04/20 Ralph Wilcox MD [address] [address] Gastroenterology 11/25/20 [place] [address] [place] [address] Consulting Provider Optometry 11/25/20 Roselia Abernathy MD 1 [place] [address] Obstetrics and Gynecology 11/25/20 documented as of this encounter
--- OUTSIDE RECORDS SUMMARY | 2025-02-19 13:31 | XMS_ITS | Encounter Summary ---
Author Organization [facility] Address [address] [place] [address] Care Team Providers Care Marine Electronics Repairer Name Role Phone Gayatri George APRN Primary Care Provider [phone] Neva Velásquez RN Unavailable Albaro Kellogg MD Unavailable Aging, [place] For [facility] Unavailable Ralph Wilcox MD Unavailable Otilia Paulson OD Unavailable [phone] Roselia Abernathy MD Unavailable [phone] Gayatri George APRN Primary Care Provider Reason for Visit * Reason Comments Medication Refill Encounter Details Date Type Department Care Team (Late st Contact Info) Description 08/17/2019 Refill [facility] Endocrinology [address] [phone] Albaro Kellogg MD [address] [place] [address] [id number] Type II or unspecified type diabetes mellitus [...] uncontrolled documented in this encounter Care Teams Marine Electronics Repairer Relationship Specialty Start Date End Date Gayatri George APRN PCP - General Family Medicine 07/17/18 11/17/20 Gayatri George APRN PCP - General Family Medicine 11/25/20 01/20/21 Neva Velásquez, JAMAR [address] [address] [facility] Community Manufacturing Engineer Paint 11/29/18 08/15/21 Albaro Kellogg MD [address] [place] [address] Physician Endocrinology 08/01/19 11/17/20 Aging, [facility] 02/04/20 Ralph Wilcox MD [address] [place] [address] Gastroenterology 11/25/20 Otilia Paulson OD [address] [place] [address] Consulting Provider Optometry 11/25/20 Roselia Abernathy MD [address] [place] [address] Obstetrics and Gynecology 11/25/20 documented as of this encounter
--- OUTSIDE RECORDS SUMMARY | 2025-02-19 13:31 | XMS_ITS | Encounter Summary ---
Author Organization [facility] Address [address] [place] [address] Care Team Providers Care Medical Sonographer Name Role Phone Gayatri George APRN Primary Care Provider [phone] Neva Velásquez RN Unavailable Albaro Kellogg MD Unavailable Aging, [facility] Unavailable [phone] Ralph Wilcox MD Unavailable Otilia Paulson OD Unavailable [phone] Roselia Abernathy MD Unavailable Gayatri George APRN Primary Care Provider [phone] Gayatri George APRN Unavailable [phone] Reason for Visit * Reason Comments Medication Refill Encounter Details Date Type Department Care Team (Late st Contact Info) Description 01/15/[address] [place] [address] [phone] Gayatri George, ANA [address] [place] [address] Gastroesophageal reflux disease, esophagitis presence not specified; [...] complicated documented in this encounter Care Teams Medical Sonographer Relationship Specialty Start Date End Date Gayatri George APRN PCP - General Family Medicine 07/17/18 11/17/20 Gayatri George APRN PCP - General Family Medicine 11/25/20 01/20/21 Gayatri George APRN 30 [place] [address] PCP - [place] Medicare Attributed 03/02/19 06/01/19 Neva Velásquez, JAMAR [address] [address] [facility] Community Scaffold Builder 11/29/18 08/15/21 Albaro Kellogg MD [address] [place] [address] Physician Endocrinology 08/01/19 11/17/20 Aging, [place] For [facility] 02/04/20 Ralph Wilcox MD [address] [place] [address] Gastroenterology 11/25/20 Otilia Paulson OD [address] [place] [address] Consulting Provider Optometry 11/25/20 Roselia Abernathy MD [address] [place] [address] Obstetrics and Gynecology 11/25/20 documented as of this encounter
--- OUTSIDE RECORDS SUMMARY | 2025-02-19 13:31 | XMS_ITS | Encounter Summary ---
Author Organization [facility] Address [address] [place] [address] Care Team Providers Care Proj Engineer Name Role Phone Alison Aguirre APRN Primary Care Provider [phone] Gurjit Baum MD Primary Care Provider [phone] Alison Aguirre APRN Primary Care Provider [phone] Soila Pineda Unavailable [phone] Gayatri George APRN Primary Care Provider Neva Velásquez RN Unavailable Albaro Kellogg MD Unavailable Aging, [facility] [place] [facility] Unavailable [phone] Ralph Wilcox MD Unavailable [phone] Otilia Paulson OD Unavailable [phone] Roselia Abernathy MD Unavailable [phone] Gayatri George APRN Primary Care Provider [phone] Gayatri George APRN Unavailable [phone] Encounter Details Date Type Department Care Team (Late st Contact Info) Description 06/28/2017 Scanned Document [address] [phone] Alison Aguirre APRN [address] [place] [address] Social History Tobacco Use Types Packs/Day Years [...] on filedocumented in this encounter Care Teams Proj Engineer Relationship Specialty Start Date End Date Alison Aguirre APRN PCP - General Internal Medicine 06/06/17 10/15/17 Gurjit Baum MD [address] [place] [address] PCP - General Internal Medicine 10/16/17 10/23/17 Alison Aguirre APRN PCP - General Internal Medicine 10/24/17 07/16/18 Gayatri George APRN [address] [address] PCP - General Family Medicine 07/17/18 11/17/20 Gayatri George APRN [address] [id number] PCP - General Family Medicine 11/25/20 01/20/21 Gayatri George APRN [address] [place] [address] PCP - [place] Medicare Attributed 03/02/19 06/01/19 Soila Pineda, PARTNER CCO [address] [place] [address] [facility]+ Filling Room Operator 05/08/18 11/26/18 Neva Velásquez, RN [address] [place] [address] ICP Community Profile Grinder Technician 11/29/18 08/15/21 Albaro Kellogg MD [address] [place] [address] Physician Endocrinology 08/01/19 11/17/20 Aging, [place] For [facility] [place] [facility] 02/04/20 Ralph Wilcox MD [address] [place] [address] Gastroenterology 11/25/20 Otilia Paulson OD [address] [place] [address] Consulting Provider Optometry 11/25/20 Roselia Abernathy MD [address] [place] [address] Obstetrics and Gynecology 11/25/20 documented as of this encounter
--- OUTSIDE RECORDS SUMMARY | 2025-02-19 13:31 | XMS_ITS | Encounter Summary ---
Author Organization [facility] Address [address] [place] [address] Care Team Providers Care Real Estate Attorney Name Role Phone Alison Aguirre APRN Primary Care Provider [phone] Gurjit Baum MD Primary Care Provider [phone] Alison Aguirre APRN Primary Care Provider [phone] Soila Pineda Unavailable [phone] Gayatri George APRN Primary Care Provider [phone] Neva Velásquez RN Unavailable Albaro Kellogg MD Unavailable Aging, [place] For [facility] Unavailable [phone] Ralph Wilcox MD Unavailable [phone] Otilia Paulson OD Unavailable [phone] Roselia Abernathy MD Unavailable [phone] Gayatri George APRN Primary Care Provider + [phone] Gayatri George APRN Unavailable [phone] Reason for Visit * Reason Comments Medication Refill Encounter Details Date Type Department Care Team (Late st Contact Info) Description 10/04/2017 [facility] [address] [phone] Alison Aguirre APRN [address] [place] [address] Hypertension, unspecified type Social History Tobacco Use [...] type documented in this encounter Care Teams Real Estate Attorney Relationship Specialty Start Date End Date Alison Aguirre APRN PCP - General Internal Medicine 06/06/17 10/15/17 Gurjit Baum MD [address] [place] [address] PCP - General Internal Medicine 10/16/17 10/23/17 Alison Aguirre APRN PCP - General Internal Medicine 10/24/17 07/16/18 Gayatri George APRN [address] [id number] PCP - General Family Medicine 07/17/18 11/17/20 Gayatri George APRN [address] [address] PCP - General Family Medicine 11/25/20 01/20/21 Gayatri George APRN 30 [place] [address] PCP - United Medicare Attributed 03/02/19 06/01/19 Soila Pineda, TRIM STENCIL MAKER [address] [place] [address] ICP PC[facility]+ Night Coordinator 05/08/18 11/26/18 Neva Velásquez, RN [address] [place] [address] ICP Community Security Infrastructure Engineer 11/29/18 08/15/21 Albaro Kellogg MD [address] [place] [address] Physician Endocrinology 08/01/19 11/17/20 Aging, [place] For [facility] 02/04/20 Ralph Wilcox MD [address] [place] [address] Gastroenterology 11/25/20 Otilia Paulson OD [address] [place] [address] Consulting Provider Optometry 11/25/20 Roselia Abernathy MD [address] [place] [address] Obstetrics and Gynecology 11/25/20 documented as of this encounter
--- OUTSIDE RECORDS SUMMARY | 2025-02-19 13:31 | XMS_ITS | Encounter Summary ---
Author Organization [facility] Address [address] [place] [address] Care Team Providers Care Electrical Unit Rebuilder Name Role Phone Gayatri George APRN Primary Care Provider [phone] Neva Velásquez RN Unavailable Albaro Kellogg MD Unavailable Aging, [place] For [facility] Unavailable [phone] Ralph Wilcox MD Unavailable [phone] Otilia Paulson OD Unavailable [phone] Roselia Abernathy MD Unavailable [phone] Gayatri George APRN Primary Care Provider Encounter Details Date Type Department Care Team (Late st Contact Info) Description 08/14/2019 Scanned Document [facility] Gayatri George APRN [address] [place] [address] Social History Tobacco Use Types Packs/Day Years [...] on filedocumented in this encounter Care Teams Electrical Unit Rebuilder Relationship Specialty Start Date End Date Gayatri George APRN PCP - General Family Medicine 07/17/18 11/17/20 Gayatri George APRN PCP - General Family Medicine 11/25/20 01/20/21 Neva Velásquez, RN [address] [facility] 4 [place] [address] [facility] Community Search Engine Optimization Analyst 11/29/18 08/15/21 Albaro Kellogg MD [address] [place] [address] Physician Endocrinology 08/01/19 11/17/20 [facility], [place] For [facility] 02/04/20 Ralph Wilcox MD [address] [address] Gastroenterology 11/25/20 Otilia Paulson OD [address] [place] [address] Consulting Provider Optometry 11/25/20 Roselia Abernathy MD [address] [place] [address] Obstetrics and Gynecology 11/25/20 documented as of this encounter
--- OUTSIDE RECORDS SUMMARY | 2025-02-19 13:31 | XMS_ITS | Encounter Summary ---
Author Organization [facility] Address [address] [place] [address] Care Team Providers Care Hob Grinder Name Role Phone Gurjit Baum MD Primary Care Provider [phone] Alison Aguirre APRN Primary Care Provider [phone] Soila Pineda BINDER ROLLER Unavailable [phone] Gayatri George APRN Primary Care Provider + [phone] Neva Velásquez RN Unavailable Albaro Kellogg MD Unavailable Aging, [place] For [facility] Unavailable [phone] Ralph Wilcox MD Unavailable [phone] Otilia Paulson OD Unavailable [phone] Roselia Abernathy MD Unavailable [phone] Gayatri George APRN Primary Care Provider + [phone] Gayatri George APRN Unavailable [phone] Encounter Details Date Type Department Care Team (Late st Contact Info) Description 10/16/2017 Scanned Document [address] [phone] Gurjit Baum MD [address] [place] [address] Social History Tobacco Use Types Packs/Day Years [...] on filedocumented in this encounter Care Teams Hob Grinder Relationship Specialty Start Date End Date Gurjit Buam MD [address] [place] [address] PCP - General Internal Medicine 10/16/17 10/23/17 Alison Aguirre APRN [address] [place] [address] PCP - General Internal Medicine 10/24/17 07/16/18 Gayatri George APRN [address] [address] PCP - General Family Medicine 07/17/18 11/17/20 Gayatri George, IN FLIGHT REFUELING MANAGER [address] [place] [address] PCP - General Family Medicine 11/25/20 01/20/21 Gayatri George, ANA 30 [place] [address] PCP - [place] Medicare Attributed 03/02/19 06/01/19 Soila Pineda, BINDER ROLLER [address] [place] [address] ICP PCMH+ Package Checker 05/08/18 11/26/18 Neva Velásquez, RN [address] [place] [address] ICP Community Special Machine Operator 11/29/18 08/15/21 Albaro Kellogg MD [address] [place] [address] Physician Endocrinology 08/01/19 11/17/20 Aging, [facility] 02/04/20 Ralph Wilcox MD [address] [place] [address] Gastroenterology 11/25/20 Otilia Paulson OD [address] [place] [address] Consulting Provider Optometry 11/25/20 Roselia Abernathy MD [address] [place] [address] Obstetrics and Gynecology 11/25/20 documented as of this encounter
--- OUTSIDE RECORDS SUMMARY | 2025-02-19 13:31 | XMS_ITS | Encounter Summary ---
Author Organization [facility] Address [address] [place] [address] Care Team Providers Care Stock House Worker Name Role Phone Alison Aguirre APRN Primary Care Provider Soila Pineda Unavailable [phone] Gayatri George APRN Primary Care Provider Neva Velásquez RN Unavailable Albaro Kellogg MD Unavailable Aging, [place] For [facility] Unavailable [phone] Ralph Wilcox MD Unavailable [phone] Otilia Paulson OD Unavailable Roselia Abernathy MD Unavailable Gayatri George APRN Primary Care Provider Gayatri George APRN Unavailable [phone] Encounter Details Date Type Department Care Team (Late st Contact Info) Description 03/13/2018 Infusion [facility] [place] [facility]: Outpatient Infusion Center [address] [place] [address] Gurjit Baum MD [address] [address] Social History Tobacco Use Types Packs/Day Years [...] on filedocumented in this encounter Care Teams Stock House Worker Relationship Specialty Start Date End Date Alison Aguirre APRN PCP - General Internal Medicine 10/24/17 07/16/18 Gayatri George, CAFETERIA COUNTER ATTENDANT [address] [facility] [address] [place] [address] PCP - General Family Medicine 07/17/18 11/17/20 Gayatri George, CAFETERIA COUNTER ATTENDANT [address] [place] [address] PCP - General Family Medicine 11/25/20 01/20/21 Gayatri George, CAFETERIA COUNTER ATTENDANT 30 [place] [address] PCP - [place] Medicare Attributed 03/02/19 06/01/19 Soila Pineda, EVENTS SPECIALIST [address] [place] [address] [facility]+ Air And Water Tester 05/08/18 11/26/18 Neva Velásquez, RN [address] [facility] 4 [place] [address] [facility] Community Certification Officer 11/29/18 08/15/21 Albaro Kellogg MD [address] [place] [address] Physician Endocrinology 08/01/19 11/17/20 Aging, [facility] 02/04/20 Ralph Wilcox MD [address] [address] Gastroenterology 11/25/20 Otilia Paulson OD [address] [place] [address] Consulting Provider Optometry 11/25/20 Roselia Abernathy MD 1 [place] [address] Obstetrics and Gynecology 11/25/20 documented as of this encounter
--- OUTSIDE RECORDS SUMMARY | 2025-02-19 13:31 | XMS_ITS | Encounter Summary ---
Author Organization [facility] Address [address] [place] [address] Care Team Providers Care Court Bailiff Name Role Phone Gayatri George APRN Primary Care Provider [phone] Neva Velásquez RN Unavailable Albaro Kellogg MD Unavailable Aging, [facility] Unavailable Ralph Wilcox MD Unavailable Otilia Paulson OD Unavailable [phone] Roselia Abernathy MD Unavailable Gayatri George CLOUD SERVICES ARCHITECT Primary Care Provider [phone] Gayatri George APRN Unavailable [phone] Reason for Visit * Reason Comments Medication Refill Encounter Details Date Type Department Care Team (Late st Contact Info) Description 03/18/[address] [place] [address] [phone] Gayatri George, CLOUD SERVICES ARCHITECT [address] [place] [address] Moderate persistent asthma, unspecified whether complicated Social [...] complicated documented in this encounter Care Teams Court Bailiff Relationship Specialty Start Date End Date Gayatri George APRN PCP - General Family Medicine 07/17/18 11/17/20 Gayatri George APRN PCP - General Family Medicine 11/25/20 01/20/21 Gayatri George APRN 30 [place] [address] PCP - [place] Medicare Attributed 03/02/19 06/01/19 Neva Velásquez, JAMAR [address] [address] [facility] Community Director Of Government Sales 11/29/18 08/15/21 Albaro Kellogg MD [address] [place] [address] Physician Endocrinology 08/01/19 11/17/20 Aging, [facility] 02/04/20 Ralph Wilcox MD [address] [address] Gastroenterology 11/25/20 Otilia Paulson OD [address] [place] [address] Consulting Provider Optometry 11/25/20 Roselia Abernathy MD [address] [place] [address] Obstetrics and Gynecology 11/25/20 documented as of this encounter
--- OUTSIDE RECORDS SUMMARY | 2025-02-19 13:31 | XMS_ITS | Encounter Summary ---
Author Organization [facility] Address [address] [place] [address] Care Team Providers Care Crop Puller Name Role Phone Gayatri George APRN Primary Care Provider [phone] Neva Velásquez RN Unavailable Albaro Kellogg MD Unavailable Aging, [facility] Unavailable [phone] Ralph Wilcox MD Unavailable [phone] Otilia Paulson OD Unavailable Roselia Abernathy MD Unavailable Gayatri George APRN Primary Care Provider [phone] Gayatri George APRN Unavailable [phone] Encounter Details Date Type Department Care Team (Late st Contact Info) Description 02/14/2019 Scanned Document [facility] [address] [place] [id number] Ralph Wilcox MD [address] [place] [address], [place] [address] Social History Tobacco Use Types Packs/Day Years [...] (REPORT) PATHOLOGY REPORT (02/14/2019 12:00 AM EDT) us Ralph Wilcox MD PATHOLOGY/CYTOLOGY ORDERABLES Final Result documented in this encounter Visit Diagnoses Not on filedocumented in this encounter Care Teams Crop Puller Relationship Specialty Start Date End Date Gayatri George APRN PCP - General Family Medicine 07/17/18 11/17/20 Gayatri George APRN PCP - General Family Medicine 11/25/20 01/20/21 Gayatri George APRN 30 [place] [address] PCP - [place] Medicare Attributed 03/02/19 06/01/19 Neva Velásquez, JAMAR [address] [facility] 4 [place] [address] [facility] Community Computer Recycling Worker 11/29/18 08/15/21 Albaro Kellogg MD [address] [place] [address] Physician Endocrinology 08/01/19 11/17/20 [facility], [facility] 02/04/20 Ralph Wilcox MD [address] [place] [address] Gastroenterology 11/25/20 Otilia Paulson OD [address] [place] [address] Consulting Provider Optometry 11/25/20 Roselia Abernathy MD [address] [place] [address] Obstetrics and Gynecology 11/25/20 documented as of this encounter
--- OUTSIDE RECORDS SUMMARY | 2025-02-19 13:31 | XMS_ITS | Encounter Summary ---
Author Organization [facility] Address [address] [place] [address] Care Team Providers Care Grinder Mill Operator Name Role Phone Alison Aguirre APRN Primary Care Provider [phone] Gurjit Baum MD Primary Care Provider [phone] Alison Aguirre APRN Primary Care Provider +[phone] Soila Pineda Unavailable +[phone] Gayatri Georeg APRN Primary Care Provider Neva Velásquez RN Unavailable Albaro Kellogg MD Unavailable Aging, [facility] Unavailable [phone] Ralph Wilcox MD Unavailable [phone] Otilia Paulson OD Unavailable [phone] Roselia Abernathy MD Unavailable [phone] Gayatri George APRN Primary Care Provider Gayatri George APRN Unavailable [phone] Encounter Details Date Type Department Care Team (Late st Contact Info) Description 07/11/2017 Scanned Document [address] [address] Alison Aguirre APRN [address] [place] [address] Social History Tobacco Use Types Packs/Day Years [...] on filedocumented in this encounter Care Teams Grinder Mill Operator Relationship Specialty Start Date End Date Alison Aguirre APRN PCP - General Internal Medicine 06/06/17 10/15/17 Gurjit Baum MD [address] [place] [address] PCP - General Internal Medicine 10/16/17 10/23/17 Alison Aguirre APRN PCP - General Internal Medicine 10/24/17 07/16/18 Gayatri George APRN [address] [address] PCP - General Family Medicine 07/17/18 11/17/20 Gayatri George APRN [address] [id number] PCP - General Family Medicine 11/25/20 01/20/21 Gayatri George APRN [address] [place] [address] PCP - United Medicare Attributed 03/02/19 06/01/19 Soila Pineda, TELLERS SUPERVISOR [address] [place] [address] ICP PCMH+ Truck Driver Instructor 05/08/18 11/26/18 Neva Velásquez, RN [address] [place] [address] ICP Community Back Hoe Operator 11/29/18 08/15/21 Albaro Kellogg MD [address] [place] [address] Physician Endocrinology 08/01/19 11/17/20 Aging, [place] [facility] 02/04/20 Ralph Wilcox MD [address] [place] [address] Gastroenterology 11/25/20 Otilia Paulson OD [address] [place] [address] Consulting Provider Optometry 11/25/20 Roselia Abernathy MD [address] [place] [address] Obstetrics and Gynecology 11/25/20 documented as of this encounter
--- OUTSIDE RECORDS SUMMARY | 2025-02-19 13:31 | XMS_ITS | Encounter Summary ---
Author Organization [facility] Address [address] [place] [address] Care Team Providers Care Director Cloud Transformation Name Role Phone Alison Aguirre APRN Primary Care Provider [phone] Gurjit Baum MD Primary Care Provider [phone] Alison Aguirre APRN Primary Care Provider +[phone] Soila Pineda Unavailable +[phone] Gayatri George APRN Primary Care Provider Neva Velásquez RN Unavailable Albaro Kellogg MD Unavailable Aging, [facility] Unavailable [phone] Ralph Wilcox MD Unavailable [phone] Otilia Paulson OD Unavailable [phone] Roselia Abernathy MD Unavailable [phone] Gayatri George APRN Primary Care Provider [phone] Gayatri George APRN Unavailable [phone] Encounter Details Date Type Department Care Team (Late st Contact Info) Description 09/12/2017 Scanned Document [address] [address] Alison Aguirre APRN [address] [place] [address] Social History Tobacco Use Types Packs/Day Years [...] filedocumented in this encounter Care Teams Director Cloud Transformation Relationship Specialty Start Date End Date Alison Aguirre APRN PCP - General Internal Medicine 06/06/17 10/15/17 Gurjit Baum MD [address] [place] [address] PCP - General Internal Medicine 10/16/17 10/23/17 Alison Aguirre APRN PCP - General Internal Medicine 10/24/17 07/16/18 Gayatri George APRN [address] [address] PCP - General Family Medicine 07/17/18 11/17/20 Gayatri George APRN [address] [id number] PCP - General Family Medicine 11/25/20 01/20/21 Gayatri George APRN [address] [place] [address] PCP - United Medicare Attributed 03/02/19 06/01/19 Soila Pineda, RESIDENCE HALL DIRECTOR [address] [place] [address] ICP PCMH+ Stone Trimmer 05/08/18 11/26/18 Neva Velásquez, RN [address] [place] [address] ICP Community Ribbon Inker 11/29/18 08/15/21 Albaro Kellogg MD [address] [place] [address] Physician Endocrinology 08/01/19 11/17/20 Aging, [place] [facility] 02/04/20 Ralph Wilcox MD [address] [place] [address] Gastroenterology 11/25/20 Otilia Paulson OD [address] [place] [address] Consulting Provider Optometry 11/25/20 Roselia Abernathy MD [address] [place] [address] Obstetrics and Gynecology 11/25/20 documented as of this encounter
--- OUTSIDE RECORDS SUMMARY | 2025-02-19 13:31 | XMS_ITS | Encounter Summary ---
Author Organization [facility] Address [address] [place] [address] Care Team Providers Care Assistant Professor Of Life Sciences Name Role Phone Alison Aguirre APRN Primary Care Provider [phone] Soila Pineda Unavailable [phone] Gayatri George APRN Primary Care Provider Neva Velásquez RN Unavailable Albaro Kellogg MD Unavailable Aging, [place] [facility] Unavailable [phone] Ralph Wilcox MD Unavailable [phone] Otilia Paulson OD Unavailable [phone] Roselia Abernathy MD Unavailable [phone] Gayatri George APRN Primary Care Provider + [phone] Gayatri George APRN Unavailable [phone] Encounter Details Date Type Department Care Team (Late st Contact Info) Description 02/01/2018 Scanned Document [address] [place] [address] Provider, Generic Social History Tobacco [...] on filedocumented in this encounter Care Teams Assistant Professor Of Life Sciences Relationship Specialty Start Date End Date Alison Aguirre APRN PCP - General Internal Medicine 10/24/17 07/16/18 Gayatri George, CONSULTING NETWORKING ENGINEER [address] [address] PCP - General Family Medicine 07/17/18 11/17/20 Gayatri George, CONSULTING NETWORKING ENGINEER [address] [phone] PCP - General Family Medicine 11/25/20 01/20/21 Gayatri George, CONSULTING NETWORKING ENGINEER 30 [place] [address] PCP - United Medicare Attributed 03/02/19 06/01/19 Soila Pineda, JAVA JSF DEVELOPER [address] [address] [facility] PCM+ Seamstress Fitter 05/08/18 11/26/18 Neva Velásquez, RN [address] [address] [facility] Community Strap Setter 11/29/18 08/15/21 Albaro Kellogg MD [address] [place], [place] [address] Physician Endocrinology 08/01/19 11/17/20 Aging, [facility] 02/04/20 Ralph Wilcox MD [address] [place], [place] [address] Gastroenterology 11/25/20 Otilia Paulson OD [address] [place] [address] Consulting Provider Optometry 11/25/20 Roselia Abernathy MD [address] [place] [address] Obstetrics and Gynecology 11/25/20 documented as of this encounter
--- OUTSIDE RECORDS SUMMARY | 2025-02-19 13:31 | XMS_ITS | Encounter Summary ---
Author Organization [facility] Address [address] [place] [address] Care Team Providers Care Technical Sales Director Name Role Phone Alison Aguirre APRN Primary Care Provider [phone] Soila Pineda Unavailable [phone] Gayatri George APRN Primary Care Provider [phone] Neva Velásquez RN Unavailable Albaro Kellogg MD Unavailable [facility] [place] [facility] Unavailable [phone] Ralph Wilcox MD Unavailable [phone] Otilia Paulson OD Unavailable [phone] Roselia Abernathy MD Unavailable [phone] Gayatri George APRN Primary Care Provider Gayatri George APRN Unavailable [phone] Reason for Visit * Reason Comments Medication Refill Encounter Details Date Type Department Care Team (Late st Contact Info) Description 05/31/2018 Refill [facility] [place] [facility] - Cardiology [address] [place] [address] Brenda Tony MD [address] [place] [address], [place] [address] Medication Refill Social History Tobacco Use Types [...] hypertension documented in this encounter Care Teams Technical Sales Director Relationship Specialty Start Date End Date Alison Aguirre APRN PCP - General Internal Medicine 10/24/17 07/16/18 Gayatri George APRN [address] [place] [id number] PCP - General Family Medicine 07/17/18 11/17/20 Gayatri George APRN [address] [place] [address] PCP - General Family Medicine 11/25/20 01/20/21 Gayatri George APRN [address] [place] [address] PCP - United Medicare Attributed 03/02/19 06/01/19 Soila Pineda, FIRE PROTECTION FABRICATOR [address] [place] [address] ICP PCMH+ Office Technician 05/08/18 11/26/18 Neva Velásquez, RN [address] [place] [address] ICP Community Swat Team Member 11/29/18 08/15/21 Albaro Kellogg MD [address] [place] [address] Physician Endocrinology 08/01/19 11/17/20 [facility] [place] [facility] 02/04/20 Ralph Wilcox MD [address] [place] [address] Gastroenterology 11/25/20 Otilia Paulson OD [address] [place] [address] Consulting Provider Optometry 11/25/20 Roselia Abernathy MD [address] [place] [address] Obstetrics and Gynecology 11/25/20 documented as of this encounter
--- OUTSIDE RECORDS SUMMARY | 2025-02-19 13:31 | XMS_ITS | Encounter Summary ---
Author Organization [facility] Address [address] [place] [address] Care Team Providers Care Boat Outboard Engine Mechanic Name Role Phone Alison Aguirre APRN Primary Care Provider [phone] Gurjit Baum MD Primary Care Provider [phone] Alison Aguirre APRN Primary Care Provider [phone] Soila Pineda Unavailable [phone] Gayatri George APRN Primary Care Provider Neva Velásquez RN Unavailable Albaro Kellogg MD Unavailable Aging, [facility] Unavailable [phone] Ralph Wilcox MD Unavailable [phone] Otilia Paulson OD Unavailable [phone] Roselia Abernathy MD Unavailable [phone] Gayatri George APRN Primary Care Provider [phone] Gayatri George APRN Unavailable [phone] Encounter Details Date Type Department Care Team (Late st Contact Info) Description 08/16/2017 Scanned Document [address] [address] Alison Aguirre APRN [address] [place] [address] Social History Tobacco Use Types Packs/Day Years [...] on filedocumented in this encounter Care Teams Boat Outboard Engine Mechanic Relationship Specialty Start Date End Date Alison Aguirre APRN PCP - General Internal Medicine 06/06/17 10/15/17 Gurjit Baum MD [address] [place] [address] PCP - General Internal Medicine 10/16/17 10/23/17 Alison Aguirre APRN PCP - General Internal Medicine 10/24/17 07/16/18 Gayatri George APRN [address] [address] PCP - General Family Medicine 07/17/18 11/17/20 Gayatri George APRN [address] [id number] PCP - General Family Medicine 11/25/20 01/20/21 Gayatri George APRN [address] [place] [address] PCP - United Medicare Attributed 03/02/19 06/01/19 Soila Pineda, CHANNELER [address] [place] [address] ICP PCMH+ Cook Chili 05/08/18 11/26/18 Neva Velásquez, RN [address] [place] [address] ICP Community Senior Research Project Manager 11/29/18 08/15/21 Albaro Kellogg MD [address] [place] [address] Physician Endocrinology 08/01/19 11/17/20 Aging, [place] [facility] 02/04/20 Ralph Wilcox MD [address] [place] [address] Gastroenterology 11/25/20 Otilia Paulson OD [address] [place] [address] Consulting Provider Optometry 11/25/20 Roselia Abernathy MD [address] [place] [address] Obstetrics and Gynecology 11/25/20 documented as of this encounter
--- OUTSIDE RECORDS SUMMARY | 2025-02-19 13:31 | XMS_ITS | Encounter Summary ---
Author Organization [facility] Address [address] [place] [address] Care Team Providers Care Patient Support Partner Name Role Phone Gayatri George APRN Primary Care Provider [phone] Neva Velásquez RN Unavailable Albaro Kellogg MD Unavailable Aging, [facility] Unavailable Ralph Wilcox MD Unavailable [phone] Otilia Paulson OD Unavailable [phone] Roselia Abernathy MD Unavailable Gayatri George APRN Primary Care Provider [phone] Gayatri George APRN Unavailable [phone] Encounter Details Date Type Department Care Team (Late st Contact Info) Description 12/10/[address] [facility] [address] [place] [id number] Ralph Wilcox MD [address] [place] [address], [place] [address] Social History Tobacco Use Types Packs/Day Years Used Date Smoking Tobacco: Former Cigarettes Q uit: 2014 Smokeless Tobacco: Never Alcohol Use Standard [...] (REPORT) PATHOLOGY REPORT (12/10/2018 12:00 AM EDT) us Ralph Wilcox MD PATHOLOGY/CYTOLOGY ORDERABLES Final Result documented in this encounter Visit Diagnoses Not on filedocumented in this encounter Care Teams Patient Support Partner Relationship Specialty Start Date End Date Gayatri George APRN PCP - General Family Medicine 07/17/18 11/17/20 Gayatri George APRN PCP - General Family Medicine 11/25/20 01/20/21 Gayatri George APRN 30 [place] [address] PCP - United Medicare Attributed 03/02/19 06/01/19 Neva Velásquez, RN [address] [address] [facility] Community Medical Doctor Nuclear Medicine 11/29/18 08/15/21 Albaro Kellogg MD [address] [place] [address] Physician Endocrinology 08/01/19 11/17/20 Aging, [place] [facility] 02/04/20 Ralph Wilcox MD [address] [place] [address] Gastroenterology 11/25/20 Otilia Paulson OD [address] [place] [address] Consulting Provider Optometry 11/25/20 Roselia Abernathy MD [address] [place] [address] Obstetrics and Gynecology 11/25/20 documented as of this encounter
--- OUTSIDE RECORDS SUMMARY | 2025-02-19 13:31 | XMS_ITS | Encounter Summary ---
Author Organization [facility] Address [address] [place] [address] Care Team Providers Care Renal Medicine Physician Name Role Phone Alison Aguirre APRN Primary Care Provider [phone] Gurjit Baum MD Primary Care Provider [phone] Alison Aguirre APRN Primary Care Provider [phone] Soila Pineda Unavailable +[phone] Gayatri George APRN Primary Care Provider Neva Velásquez RN Unavailable Albaro Kellogg MD Unavailable Aging, [facility] Unavailable [phone] Ralph Wilcox MD Unavailable [phone] Otilia Paulson OD Unavailable [phone] Roselia Abernathy MD Unavailable [phone] Gayatri George APRN Primary Care Provider [phone] Gayatri George APRN Unavailable [phone] Encounter Details Date Type Department Care Team (Late st Contact Info) Description 10/10/2017 Telephone [facility] [address] [place] [phone] Juan Miguel Pollard MD Social History Tobacco [...] on filedocumented in this encounter Care Teams Renal Medicine Physician Relationship Specialty Start Date End Date Alison Aguirre APRN PCP - General Internal Medicine 06/06/17 10/15/17 Gurjit Baum MD [address] [place] [address] PCP - General Internal Medicine 10/16/17 10/23/17 Alison Aguirre APRN PCP - General Internal Medicine 10/24/17 07/16/18 Gayatri George APRN [address] [address] PCP - General Family Medicine 07/17/18 11/17/20 Gayatri George APRN [address] [address] PCP - General Family Medicine 11/25/20 01/20/21 Gaaytri George APRN [address] [place] [address] PCP - United Medicare Attributed 03/02/19 06/01/19 Soila Pineda, TALENT ACQUISITION DIRECTOR [address] [place] [address] ICP PCMH+ Boat Fueler 05/08/18 11/26/18 Neva Velásquez, RN [address] [place] [address] ICP Community Powerhouse Oiler 11/29/18 08/15/21 Albaro Kellogg MD [address] [place] [address] Physician Endocrinology 08/01/19 11/17/20 Aging, [facility] 02/04/20 Ralph Wilcox MD [address] [address] Gastroenterology 11/25/20 Otilia Paulson OD [facility] [place] [address] Consulting Provider Optometry 11/25/20 Roselia Abernathy MD [address] [place] [address] Obstetrics and Gynecology 11/25/20 documented as of this encounter
--- OUTSIDE RECORDS SUMMARY | 2025-02-19 13:31 | XMS_ITS | Encounter Summary ---
Author Organization [facility] Address [address] [place] [address] Care Team Providers Care Director Hr Communications Name Role Phone Siola Pineda MSW Unavailable [phone] Gayatri George APRN Primary Care Provider [phone] Neva Velásquez RN Unavailable Albaro Kellogg MD Unavailable Aging, [place] [facility] [place] [facility] Unavailable Ralph Wilcox MD Unavailable Otilia Paulson OD Unavailable [phone] Roselia Abernathy MD Unavailable Gayatri George APRN Primary Care Provider [phone] Gayatri George APRN Unavailable [phone] Encounter Details Date Type Department Care Team (Late st Contact Info) Description 08/13/2018 Scanned Document [address] [place] [phone] Provider, External, [address] [place] [address] Social History Tobacco Use Types Packs/Day Years [...] filedocumented in this encounter Care Teams Director Hr Communications Relationship Specialty Start Date End Date Gayatri George, VISUAL JOURNALIST [address] [place] [address] PCP - General Family Medicine 07/17/18 11/17/20 Gayatri George, VISUAL JOURNALIST [address] [address] PCP - General Family Medicine 11/25/20 01/20/21 Gayatri George, VISUAL JOURNALIST [address] [place] [address] PCP - United Medicare Attributed 03/02/19 06/01/19 Soila Pineda, MANUAL LATHE MACHINIST [address] [place] [address] [facility] PCM+ Rope Rider 05/08/18 11/26/18 Neva Velásquez, JAMAR [address] [place] [address] [facility] Community Blending Line Attendant 11/29/18 08/15/21 Albaro Kellogg MD [address] [place], [place] [address] Physician Endocrinology 08/01/19 11/17/20 [facility] 02/04/20 Ralph Wilcox MD [address] [place] [address], [place] [address] Gastroenterology 11/25/20 Otliia Paulson OD [address] [place] [address] Consulting Provider Optometry 11/25/20 Roselia Abernathy MD [address] [place] [address] Obstetrics and Gynecology 11/25/20 documented as of this encounter
--- OUTSIDE RECORDS SUMMARY | 2025-02-19 13:31 | XMS_ITS | Encounter Summary ---
Author Organization [facility] Address [address] [place] [address] Care Team Providers Care Restrictive Preparation Operator Name Role Phone [facility] [place] [facility] Unavailable [phone] Ralph Wilcox MD Unavailable [phone] Otilia Paulson OD Unavailable [phone] Roselia Abernathy MD Unavailable [phone] Encounter Details Date Type Department Care Team (Late st Contact Info) Description 09/26/2024 Telephone [facility] [address] [place] [id number] Garry Chung Social History Tobacco Use Types [...] Miscellaneous Notes * Telephone Encounter - Garry Chugn - 09/26/2024 9:09 AM EST LVM Colon recall DH OCS documented in this encounter Plan of Treatment Not on file documented as of this encounter Visit Diagnoses Not on filedocumented in this encounter Care Teams Restrictive Preparation Operator Relationship Specialty Start Date End Date [facility] [place] [facility] 02/04/20 Ralph Wilcox MD [address] [address] Gastroenterology 11/25/20 [place] [address] [place] [address] Consulting Provider Optometry 11/25/20 Roselia Abernathy MD [address] [place] [address] Obstetrics and Gynecology 11/25/20 documented as of this encounter
--- OUTSIDE RECORDS SUMMARY | 2025-02-19 13:31 | XMS_ITS | Encounter Summary ---
Author Organization [facility] Address [address] [place] [address] Care Team Providers Care Journeyman Plumber Name Role Phone Alison Aguirre APRN Primary Care Provider [phone] Gurjit Baum MD Primary Care Provider [phone] Alison Aguirre APRN Primary Care Provider +[phone] Soila Pineda Unavailable [phone] Gayatri George APRN Primary Care Provider Neva Velásquez RN Unavailable Albaro Kellogg MD Unavailable A[facility], [facility] Unavailable [phone] Ralph Wilcox MD Unavailable [phone] Otilia Paulson OD Unavailable [phone] Roselia Abernathy MD Unavailable [phone] Gayatri George APRN Primary Care Provider [phone] Gayatri George APRN Unavailable [phone] Encounter Details Date Type Department Care Team (Late st Contact Info) Description 07/21/2017 Scanned Document [address] [phone] Alison Aguirre APRN [address] [place] [address] Social History Tobacco Use Types Packs/Day Years [...] on filedocumented in this encounter Care Teams Journeyman Plumber Relationship Specialty Start Date End Date Alison Aguirre APRN PCP - General Internal Medicine 06/06/17 10/15/17 Gurjit Baum MD [address] [place] [address] PCP - General Internal Medicine 10/16/17 10/23/17 Alison Aguirre APRN PCP - General Internal Medicine 10/24/17 07/16/18 Gayatri George APRN [address] [address] PCP - General Family Medicine 07/17/18 11/17/20 Gayatri George APRN [address] [id number] PCP - General Family Medicine 11/25/20 01/20/21 Gayatri George APRN [address] [place] [address] PCP - United Medicare Attributed 03/02/19 06/01/19 Soila Pineda, SPARMAKER [address] [place] [address] ICP PCMH+ Linux Engineer 05/08/18 11/26/18 Neva Velásquez, RN [address] [place] [address] ICP Community Dish Machine Operator 11/29/18 08/15/21 Albaro Kellogg MD [address] [place] [address] Physician Endocrinology 08/01/19 11/17/20 Aging, [place] [facility] 02/04/20 Ralph Wilcox MD [address] [place] [address] Gastroenterology 11/25/20 Otilia Paulson OD [address] [place] [address] Consulting Provider Optometry 11/25/20 Roselia Abernathy MD [address] [place] [address] Obstetrics and Gynecology 11/25/20 documented as of this encounter
--- OUTSIDE RECORDS SUMMARY | 2025-02-19 13:31 | XMS_ITS | Encounter Summary ---
Author Organization [facility] Address [address] [place] [address] Care Team Providers Care Smt Machine Operator Name Role Phone Soila Pineda Unavailable [phone] Gayatri George APRN Primary Care Provider [phone] Neva Velásquez RN Unavailable Albaro Kellogg MD Unavailable Aging, [place] For [facility] Unavailable +[phone] Ralph Wilcox MD Unavailable [phone] Otilia Paulson OD Unavailable [phone] Roselia Abernathy MD Unavailable [phone] Gayatri George APRN Primary Care Provider [phone] Gayatri George APRN Unavailable [phone] Encounter Details Date Type Department Care Team (Late st Contact Info) Description 09/11/2018 Scanned Document [facility] [address] [place] [address] Provider, Generic Social History Tobacco Use Types [...] on filedocumented in this encounter Care Teams Smt Machine Operator Relationship Specialty Start Date End Date Gayatri George, IMMIGRATION PARALEGAL [address] [place] [address] PCP - General Family Medicine 07/17/18 11/17/20 Gayatri George, IMMIGRATION PARALEGAL [address] [address] PCP - General Family Medicine 11/25/20 01/20/21 Gayatri George, IMMIGRATION PARALEGAL 30 [place] [address] PCP - United Medicare Attributed 03/02/19 06/01/19 Soila Pineda, LEATHER FINISHER [address] [address] ICP PCMH+ Front Desk Administrator 05/08/18 11/26/18 Neva Velásquez, RN [address] [address] [facility] Community Utilization Management Nurse 11/29/18 08/15/21 Albaro Kellogg MD [address] [place] [address] Physician Endocrinology 08/01/19 11/17/20 [facility], [facility] 02/04/20 Ralph Wilcox MD [address] [address] Gastroenterology 11/25/20 [place] [address] [place] [address] Consulting Provider Optometry 11/25/20 Roselia Abernathy MD 1 [place] [address] Obstetrics and Gynecology 11/25/20 documented as of this encounter
--- OUTSIDE RECORDS SUMMARY | 2025-02-19 13:31 | XMS_ITS | Encounter Summary ---
Author Organization [facility] Address [address] [place] [address] Care Team Providers Care Millwright Apprentice Name Role Phone Alison Aguirre APRN Primary Care Provider [phone] Gurjit Baum MD Primary Care Provider [phone] Alison Aguirre APRN Primary Care Provider [phone] Soila Pineda Unavailable [phone] Gayatri George APRN Primary Care Provider Neva Velásquez RN Unavailable Albaro Kellogg MD Unavailable A[facility], [facility] Unavailable [phone] Ralph Wilcox MD Unavailable [phone] Otilia Paulson OD Unavailable [phone] Roselia Abernathy MD Unavailable [phone] Gayatri George APRN Primary Care Provider [phone] Gayatri George APRN Unavailable [phone] Encounter Details Date Type Department Care Team (Late st Contact Info) Description 07/24/2017 Scanned Document [address] [phone] Alison Aguirre APRN [address] [place] [address] Social History Tobacco Use Types Packs/Day Years [...] on filedocumented in this encounter Care Teams Millwright Apprentice Relationship Specialty Start Date End Date Alison Aguirre APRN PCP - General Internal Medicine 06/06/17 10/15/17 Gurjit Baum MD [address] [place] [address] PCP - General Internal Medicine 10/16/17 10/23/17 Alison Aguirre APRN PCP - General Internal Medicine 10/24/17 07/16/18 Gayatri George APRN [address] [address] PCP - General Family Medicine 07/17/18 11/17/20 Gayatri George APRN [address] [id number] PCP - General Family Medicine 11/25/20 01/20/21 Gayatri George APRN [address] [place] [address] PCP - United Medicare Attributed 03/02/19 06/01/19 Soila Pineda, GREEN END DEPARTMENT SUPERVISOR [address] [place] [address] ICP PCMH+ Monkey Keeper 05/08/18 11/26/18 Neva Velásquez, RN [address] [place] [address] ICP Community Blending Coordinator 11/29/18 08/15/21 Albaro Kellogg MD [address] [place] [address] Physician Endocrinology 08/01/19 11/17/20 Aging, [place] [facility] 02/04/20 Ralph Wilcox MD [address] [place] [address] Gastroenterology 11/25/20 Otilia Paulson OD [address] [place] [address] Consulting Provider Optometry 11/25/20 Roselia Abernathy MD [address] [place] [address] Obstetrics and Gynecology 11/25/20 documented as of this encounter
--- OUTSIDE RECORDS SUMMARY | 2025-02-19 13:31 | XMS_ITS | Encounter Summary ---
Author Organization [facility] Address [address] [place] [address] Care Team Providers Care Automatic Steel Tie Adjuster Name Role Phone Gayatri George APRN Primary Care Provider [phone] Neva Velásquez RN Unavailable Albaro Kellogg MD Unavailable Aging, [facility] Unavailable Ralph Wilcox MD Unavailable Otilia Paulson OD Unavailable [phone] Roselia Abernathy MD Unavailable [phone] Gayatri George PICKLE MAKER Primary Care Provider [phone] Gayatri George APRN Unavailable [phone] Reason for Visit * Reason Comments Medication Refill Encounter Details Date Type Department Care Team (Late st Contact Info) Description 01/28/[address] [place] [phone] Gayatri George, PICKLE MAKER [address] [place] [address] Insomnia, unspecified type Social History Tobacco Use [...] type documented in this encounter Care Teams Automatic Steel Tie Adjuster Relationship Specialty Start Date End Date Gayatri George APRN PCP - General Family Medicine 07/17/18 11/17/20 Gayatri George APRN PCP - General Family Medicine 11/25/20 01/20/21 Gayatri George APRN 30 [place] [address] PCP - United Medicare Attributed 03/02/19 06/01/19 Neva Velásquez, RN [address] [facility] 4 [place] [address] [facility] Community Leaflet Distributor 11/29/18 08/15/21 Albaro Kellogg MD [address] [place] [address] Physician Endocrinology 08/01/19 11/17/20 Aging, [place] For [facility] 02/04/20 Ralph Wilcox MD [address] [place] [address] Gastroenterology 11/25/20 [place] [address] [place] [address] Consulting Provider Optometry 11/25/20 Roselia Abernathy MD [address] [place] [address] Obstetrics and Gynecology 11/25/20 documented as of this encounter
--- OUTSIDE RECORDS SUMMARY | 2025-02-19 13:32 | XMS_ITS | Encounter Summary ---
Author Organization [facility] Address [address] [place] [address] Care Team Providers Care Asp Net Programmer Name Role Phone Gayatri George APRN Primary Care Provider + [phone] Neva Velásquez RN Unavailable Albaro Kellogg MD Unavailable Aging, [place] For [facility] Unavailable [phone] Ralph Wilcox MD Unavailable [phone] Otilia Paulson OD Unavailable [phone] Roselia Abernathy MD Unavailable [phone] Gayatri George APRN Primary Care Provider + [phone] Gayatri George APRN Unavailable [phone] Encounter Details Date Type Department Care Team (Late st Contact Info) Description 12/19/2018 Scanned Document [facility] OPTH[facility] SC[facility] Social History Tobacco [...] on filedocumented in this encounter Care Teams Asp Net Programmer Relationship Specialty Start Date End Date Gayatri George APRN PCP - General Family Medicine 07/17/18 11/17/20 Gayatri George APRN PCP - General Family Medicine 11/25/20 01/20/21 Gayatri George APRN 30 [place] [address] PCP - United Medicare Attributed 03/02/19 06/01/19 Neva Velásquez, JAMAR [address] [address] [facility] Community Watch Technician 11/29/18 08/15/21 Albaro Kellogg MD [address] [place] [address] Physician Endocrinology 08/01/19 11/17/20 [facility], [facility] 02/04/20 Ralph Wilcox MD [address] [address] Gastroenterology 11/25/20 Otilia Paulson OD [address] [place] [address] Consulting Provider Optometry 11/25/20 Roselia Abernathy MD 1 [place] [address] Obstetrics and Gynecology 11/25/20 documented as of this encounter
--- OUTSIDE RECORDS SUMMARY | 2025-02-19 13:32 | XMS_ITS | Encounter Summary ---
Author Organization [facility] Address [address] [place] [address] Care Team Providers Care Auto Top Mechanic Name Role Phone [facility], [place] For [facility] Unavailable [phone] Ralph Wilcox MD Unavailable [phone] Otilia Paulson OD Unavailable [phone] Roselia Abernathy MD Unavailable [phone] Encounter Details Date Type Department Care Team (Late st Contact Info) Description 11/05/2024 Telephone [facility] [address] [place] [phone] Garry Chung Social History Tobacco Use Types [...] on filedocumented in this encounter Care Teams Auto Top Mechanic Relationship Specialty Start Date End Date [facility], [facility] 02/04/20 Ralph Wilcox MD [address] [address] Gastroenterology 11/25/20 [place] [address] [place] [address] Consulting Provider Optometry 11/25/20 Roselia Abernathy MD [address] [place] [address] Obstetrics and Gynecology 11/25/20 documented as of this encounter
--- OUTSIDE RECORDS SUMMARY | 2025-02-19 13:32 | XMS_ITS | Encounter Summary ---
Author Organization [facility] Address [address] [place] [address] Care Team Providers Care Cruise Consultant Name Role Phone Alison Aguirre APRN Primary Care Provider [phone] Soila Pineda Unavailable [phone] Gayatri George APRN Primary Care Provider [phone] Neva Velásquez RN Unavailable Albaro Kellogg MD Unavailable Aging, [place] For [facility] Unavailable [phone] Ralph Wilcox MD Unavailable [phone] Otilia Paulson OD Unavailable [phone] Roselia Abernathy MD Unavailable [phone] Gayatri George APRN Primary Care Provider Gayatri George APRN Unavailable [phone] Encounter Details Date Type Department Care Team (Late st Contact Info) Description 11/07/2017 Scanned Document [facility] 80 [facility] [address] [place] [address] Provider, Generic Social History Tobacco [...] on filedocumented in this encounter Care Teams Cruise Consultant Relationship Specialty Start Date End Date Alison Aguirre APRN PCP - General Internal Medicine 10/24/17 07/16/18 Gayatri George, DIRECTOR OF ALUMNI RELATIONS [address] [address] PCP - General Family Medicine 07/17/18 11/17/20 Gayatri George, DIRECTOR OF ALUMNI RELATIONS [address] [phone] PCP - General Family Medicine 11/25/20 01/20/21 Gayatri George, DIRECTOR OF ALUMNI RELATIONS 30 [place] [address] PCP - United Medicare Attributed 03/02/19 06/01/19 Soila Pineda, CARDIAC CARE UNIT NURSE [address] [address] [facility]+ Associate Professor Of Library Science 05/08/18 11/26/18 Neva Velásquez, RN [address] [address] ICP Community Title Checker 11/29/18 08/15/21 Albaro Kellogg MD [address] [place] [address] Physician Endocrinology 08/01/19 11/17/20 Aging, [facility] 02/04/20 Ralph Wilcox MD [address] [place] [address] Gastroenterology 11/25/20 Otilia Paulson OD [address] [place] [address] Consulting Provider Optometry 11/25/20 Roselia Abernathy MD [address] [place], [place] [address] Obstetrics and Gynecology 11/25/20 documented as of this encounter
--- OUTSIDE RECORDS SUMMARY | 2025-02-19 13:32 | XMS_ITS | Encounter Summary ---
Author Organization [facility] Address [address] [place] [address] Care Team Providers Care Certified Orthotic Fitter Name Role Phone Alison Aguirre APRN Primary Care Provider Soila Pineda HEAD UP OPERATOR Unavailable [phone] Gayatri George APRN Primary Care Provider Neva Velásquez RN Unavailable Albaro Kellogg MD Unavailable Aging, [place] For [facility] Unavailable [phone] Ralph Wilcox MD Unavailable [phone] Otilia Paulson OD Unavailable Roselia Abernathy MD Unavailable [phone] Gayatri George APRN Primary Care Provider Gayatri George APRN Unavailable [phone] Encounter Details Date Type Department Care Team (Late st Contact Info) Description 10/31/2017 Scanned Document [address] [phone] Alison Aguirre APRN [address] [place] [address] Social History Tobacco Use Types Packs/Day Years [...] filedocumented in this encounter Care Teams Certified Orthotic Fitter Relationship Specialty Start Date End Date Alison Aguirre APRN PCP - General Internal Medicine 10/24/17 07/16/18 Gayatri George, LINE THERAPIST [address] [facility] 4 [place] [address] PCP - General Family Medicine 07/17/18 11/17/20 Gayatri George, LINE THERAPIST [address] y Ma 4 [place] [address] PCP - General Family Medicine 11/25/20 01/20/21 Gayatri George, LINE THERAPIST 30 [place] [address] PCP - United Medicare Attributed 03/02/19 06/01/19 Soila Pineda, HEAD UP OPERATOR [address] Ma [address] [place] [address] [facility]+ Paper Baler 05/08/18 11/26/18 Neva Velásquze, RN [address] [facility] 4 [place] [address] [facility] Community Student Recruiter 11/29/18 08/15/21 Albaro Kellogg MD [address] [place] [address] Physician Endocrinology 08/01/19 11/17/20 Aging, [facility] 02/04/20 Ralph Wilcox MD [address] [address] Gastroenterology 11/25/20 [place] [address] [place] [address] Consulting Provider Optometry 11/25/20 Roselia Abernathy MD 1 [place] [address] Obstetrics and Gynecology 11/25/20 documented as of this encounter
--- OUTSIDE RECORDS SUMMARY | 2025-02-19 13:32 | XMS_ITS | Encounter Summary ---
Author Organization [facility] Address [address] [place] [address] Care Team Providers Care Fisher [place] Net Name Role Phone Alison Aguirre APRN Primary Care Provider Soila Pineda COUNTER CHECKER Unavailable [phone] Gayatri George APRN Primary Care Provider Neva Velásquez RN Unavailable Albaro Kellogg MD Unavailable Aging, [place] For [facility] Unavailable [phone] Ralph Wilcox MD Unavailable [phone] Otilia Paulson OD Unavailable [phone] Roselia Abernathy MD Unavailable [phone] Gayatri George APRN Primary Care Provider Gayatri George APRN Unavailable [phone] Encounter Details Date Type Department Care Team (Late st Contact Info) Description 06/13/2018 Scanned Document [address] [phone] Alison Aguirre APRN [address] [place] [address] Social History Tobacco Use Types Packs/Day Years [...] on filedocumented in this encounter Care Teams Fisher [place]para Net Relationship Specialty Start Date End Date Alison Aguirre APRN PCP - General Internal Medicine 10/24/17 07/16/18 Gayatri George, DOUBLE BACK OPERATOR [address] [facility] 4 [place] [address] PCP - General Family Medicine 07/17/18 11/17/20 Gayatri George, DOUBLE BACK OPERATOR [address] [place] [address] PCP - General Family Medicine 11/25/20 01/20/21 Gayatri George, DOUBLE BACK OPERATOR 30 [place] [address] PCP - United Medicare Attributed 03/02/19 06/01/19 Soila Pineda, COUNTER CHECKER [address] [place] [address] [facility]+ Camp Counselor 05/08/18 11/26/18 Neva Velásquez, RN [address] [facility] 4 [place] [address] [facility] Community Ballet Dancer 11/29/18 08/15/21 Albaro Kellogg MD [address] [place] [address] Physician Endocrinology 08/01/19 11/17/20 Aging, [facility] 02/04/20 Ralph Wilcox MD [address] [address] Gastroenterology 11/25/20 [place] [address] [place] [address] Consulting Provider Optometry 11/25/20 Roselia Abernathy MD 1 [place] [address] Obstetrics and Gynecology 11/25/20 documented as of this encounter
--- OUTSIDE RECORDS SUMMARY | 2025-02-19 13:32 | XMS_ITS | Continuity of Care Document ---
Author Organization [facility] [address] [facility] [address] [place] [address] Phone [phone] Care Team Providers Care Service Establishment Attendant Name Role Phone Jennifer Block MD Care Team Information Timber Repairer [phone] Problems Active Problems Provider Date Type 2 [...] SIG Qnty Indications Order ing Provider Date Ksbkklfbf90bn Tablets Take One Tablet By Mouth Every Morning ^1R1 90tabs Leann Staton M.D. 11/15/2024 Onetouch VerioStrips Use One Strip To Check Glucose 3 To 4 Times Daily (Bulk) 100units E11.22 Leann Staton M.D. 12/29/2023 Freestyle Jazmine 2/[place]/Flash Glucose Monitoring Grlkhi0Ctqcmq Device use as directed with sensors dx: e11.22 1units E11.Huyen Staton M.D. 11/23/2023 Freestyle Jazmine 2/Sensor/Flash Glucose Monitoring Lsmymt3Qhdmqw [facility] Use 1 Sensor Every 14 Days as Directed (Bulk) 3units E11.22 Leann Staton M.D. 11/23/2023 Lantus Fxddnesm749Irgu/ML Solution Pen-Inject Lazaro Suarez MD Montelukast Yhdnrg61vf Tablets 1 by mouth every day 30tabs Tommie Suarez MD Trulicity4.5mg/0.5ML Solution Pen-Inject inject 4.5mg into skin every week 6ml Tommie Suarez MD Vitamin D (Ergocalciferol)1.25m g (13591 Ut) Capsules Tommie Suarez MD Atorvastatin Qkcnsct04qu Tablets 1 by mouth every day 90tabs Tommie Suarez MD Aspirin Low Xskr08zf Tablets DR 1 by mouth every day Tommie Suarez MD Albuterol Sulfate AQJ281(90Base) mcg/Act Aerosol Tommie Suarez MD Hvrmbilaiz285ik Capsules 1 capsule by twice daily 180caps Tommie Suarez MD Sklcmmyohx1ni Tablets 1 tab by mouth twice a day Tommie Suarez MD Pantoprazole Nycidw73ta Tablets DR 1 by mouth every day 90tabs Tommie Suarez MD Novolog Wrugyec203Qxhv/ML Solution Pen-Inject Lazaro Suarez MD Vital Signs Date Vital Result Comment 02/13/2025 1:54pm BP Systolic 130 mmHg BP Diastolic 66 mmHg Heart Rate 85 /min Height 66 inches 5'6 Weight 202.00 lb BMI (Body Mass Index) 32.6 kg/m2 Results Test Acquired Date Facility Test Result H/L Range N ote Glucose Fingerstick 02/13/2025 Inhouse Glucose Fingerstick 109 Hemoglobin A1c 02/13/2025 Inhouse Hemoglobin A1c 6.9% Glucose Fingerstick 11/15/2024 Inhouse Glucose Fingerstick 203 Hemoglobin A1c 11/15/2024 Inhouse Hemoglobin A1c 8.0% Glucose Fingerstick 08/01/2024 Inhouse Glucose Fingerstick 150 Hemoglobin A1c 08/01/2024 Inhouse Hemoglobin A1c 7.6% Glucose Fingerstick 05/01/2024 Inhouse Glucose Fingerstick 257 Glucose Fingerstick 12/29/2023 Inhouse Glucose Fingerstick 74 Hemoglobin A1c 12/29/2023 Inhouse Hemoglobin A1c 6.7% Glucose Fingerstick 11/23/2023 Inhouse Glucose Fingerstick 190 Procedures Date Code Description Status 02/13/2025 85581 Glucose Monitoring Interpeta tion And Report Completed 11/15/2024 18733 Glucose Monitoring Interpeta tion And Report Completed 08/01/2024 93666 Glucose Monitoring Interpeta tion And Report Completed Medical Devices Description No Information Available Encounters Type Date Location Provider Dx Diagnosis Office Visit 02/13/2025 2:15p Main Office ELENO Robins 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 E11.42 Type 2 diabetes mila itus with diabetic polyneuropathy Z79.4 computer terminal operator (current) use of insulin D63.1 Anemia in chronic ki dney disease Assessments Date Code Description Provider 02/13/2025 E11.22 Type 2 diabetes mellitus with diabetic chronic kidney disease ELENO Robins 02/13/2025 E11.42 Type 2 diabetes mellitus with diabetic polyneuropathy ELENO Robins 02/13/2025 Z79.4 computer terminal operator (current) use of i nsulin ELENO Robins 02/13/2025 D63.1 Anemia in chronic kidney dis ease ELENO Robins Plan of Treatment Future Appointment(s):* 05/16/2025 1:15 pm - ELENO Robins at Main Office 11/15/2024 - ELENO Robins* E11.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
--- OUTSIDE RECORDS SUMMARY | 2025-02-19 13:32 | XMS_ITS | Clinical Summary ---
Author Organization [facility] Address [address] [place] [address] Phone Care Team Providers Care Legal Writing Professor Name Role Phone Eli Dill Primary Care [...] ONE TABLET BY MOUTH EVERY DAY ^1R1 3 Active insulin glargine (LANTUS) 100 unit/mL injection Inject under the skin. Active hydrALAZINE (APRESOLINE) 25 mg tablet Take 1 tablet (25 mg total) by mouth. 2 Active gabapentin (NEURONTIN) 600 mg tablet Take 1 tablet (600 mg total) by mouth. Active gabapentin (NEURONTIN) 100 mg capsule Take 1 capsule (100 mg total) by mouth 2 (two) times a day. Active fluticasone-nicole meterol (ADVAIR DISKUS) 250-50 mcg/dose diskus inhaler Inhale [...] (VOLTAREN) 1 % topical gel Apply topically. A ctive desvenlafaxine 100 mg tablet extended release 24 [...] tablets (650 mg total) by mouth. Active bisacodyL (DULCOLAX) 5 mg EC tablet Take 2 tablets by mouth right before beginning bowel prep. See instructions provided by the office 2 tablet 5 Active polyethylene glycol (Golytely) 236-22.74-6.74 -5.86 gram solution Take 4L by mouth once for one dose. May substitue any PEG. Starting at 6PM the night before your procedure drink 1 8oz glasses at your own pace until you complete half of the gallon. Finish 2nd half of the gallon 5 hours before your procedure. 4000 mL Active Encounters Date Type Department Care Team Description 02/05/2025 Telephone Gastroenterology - [place] [address] [facility] [address] [place] [phone] Brigette Contreras LPN Anticoagulation (Colonoscopy and EGD on 03/03/[address] Muse) 12/30/2024 1:20 PM EDT Consult Gastroenterology - [facility] [address] [facility] [address] [place] [phone] Gabriela Fisher PA History of colon polyps (Primary Dx); Gastroesophageal reflux disease, unspecified whether esophagitis present; Iron deficiency anemia, unspecified iron deficiency anemia type 12/10/2024 Telephone Gastroenterology - [facility] [address] [facility] [address] [place] [phone] Babar Zuleta MD 12/09/2024 Telephone Gastroenterology - [facility] [address] [facility] [address] [place] [phone] Babar Zuleat MD SPECIAL PROCEDURE 12/04/[address] [facility] [address] [place] [address] Eli Dill PA Medical Records from Last 3 Months Surgical History Surgery Date Site/Laterality Comments BYPASS GRAFT PROCEDURE: [place] AMPUTATION TOE METATARSOPHALANGEAL JOINT; COMMENT: x3 OTHER SURGICAL HISTORY PROCEDURE: ---- OTHER ----; COMMENT: Reduction mammoplasty OTHER SURGICAL HISTORY PROCEDURE: ---- OTHER ----; COMMENT: Abdominoplasty COLONOSCOPY 01/30/2019 - 03/01/2019 tax1, serrated polypx1 (5yr) - [facility] ESOPHAGOGASTRODUODENOSCOPY 11/30/2018 - 12/30/2018 unremarkable COLONOSCOPY 11/30/2018 - 12/30/2018 poor prep - was repteated 01/2019 OTHER SURGICAL HISTORY OTHER SURGICAL HISTORY 03/02/2019 - 03/31/2019 non bleeding small bowel avms - [place] [facility] GI Medical History Medical History Date Comments Asthma DX:Asthma Diastolic CHF ([facility] V24, [facility] V28) DX:Diastolic CHF ([facility]) HTN (hypertension) DX:HTN (hyper tension) HLD (hyperlipidemia) DX:HLD (hyp erlipidemia) Diabetes mellitus ([facility] V 24, [facility] V28) DX:Diabetes mellitus ([facility]) Diabetic neuropathy ([facility] V24, [facility] V28) DX:Diabetic neuropathy ([facility]) CKD (chronic kidney disease) , stage IV ([facility] V24, [facility] V28) DX:CKD (chronic kidney dise ase), stage IV ([facility]); COMMENT: baseline creatinine 2.4 History [...] DX:Anemia T2DM (type 2 diabetes mellit us) ([facility] V24, [facility] V28) DX:T2DM (type 2 diabetes me llitus) ([facility]) Acute kidney injury superimp osed on chronic kidney disease ([facility] V24) DX:Acute kidney i njury superimposed on chronic kidney disease ([facility]) JOHN (obstructive sleep apnea) DX :JOHN (obstructive sleep apnea) DVT prophylaxis DX:DVT prophylax is Severe anemia DX:Severe anemia COPD (chronic obstructive pu lmonary disease) ([facility] V24, [facility] V28) DX:COPD (chronic o bstructive pulmonary disease) ([facility]); COMMENT: not oxygen dependent Family History Medical History Relation Name Comments Diabetes Mother Heart failure Mother of ID in her 70s Hypertension Mother Relation Name [...] Contact Info) Description 03/03/2025 12:30 PM EDT Hospital Encounter [facility] Endoscopy [address] [place] [phone] Corina Muse MD [address] [address] Health Maintenance Due Date Last Done Comments [...] Control Test (HGBA1C) 09/14/2022 04/30/2019 Influenza Vaccine (Season Ended) 2025 Colorectal Cancer Screening: Colonoscopy 12/16/2034 12/16/2024 HIB [...] age to complete this topic Meningococcal B Vaccine Aged Out No l onger eligible based on patient's age to complete [...] inal Result from Last 3 Months Insurance [employer] MEDIC[employer] Member Subscriber Plan / Payer (Ef fective 2020-Present) Name:Natalie Cutler Relation to Subscriber:Self Name:Natalie Cutler Payer ID:[id number] Group ID:[id number] Type:Not on file Address: [facility] [facility] [place] [id number] Advance Directives Documents on File Type Date Recorded Patient Barrel Charrer Helper Expl anation Health Care Decision (hx) 01/16/2022 [...] (hx) 07/24/2021 AD OLIVIER DIRECTIVE Care Teams Legal Writing Professor Relationship Specialty Start Date End Date Eli Dill PA [address] [address] PCP - General Cardiology 12/09/24
--- OUTSIDE RECORDS SUMMARY | 2025-02-19 13:32 | XMS_ITS | Encounter Summary ---
Author Organization [facility] Address [address] [place] [address] Care Team Providers Care Community Health Advisor Name Role Phone Alison Aguirre APRN Primary Care Provider Soila Pineda SPEECH PATHOLOGY TEACHER Unavailable [phone] Gayatri George APRN Primary Care Provider Neva Velásquez RN Unavailable Albaro Kellogg MD Unavailable Aging, Mark For [facility] Unavailable [phone] Ralph Wilcox MD Unavailable [phone] Otilia Paulson OD Unavailable [phone] Roselia Abernathy MD Unavailable [phone] Gayatri George APRN Primary Care Provider Gayatri George APRN Unavailable [phone] Encounter Details Date Type Department Care Team (Late st Contact Info) Description 11/01/2017 Scanned Document [address] [phone] Alison Aguirre APRN [address] [place] [id number] Social History Tobacco Use Types Packs/Day Years [...] on filedocumented in this encounter Care Teams Community Health Advisor Relationship Specialty Start Date End Date Alison Aguirre APRN PCP - General Internal Medicine 10/24/17 07/16/18 Gayatri George, FILES SUPERVISOR [address] [facility] [address] [place] [address] PCP - General Family Medicine 07/17/18 11/17/20 Gayatri George, FILES SUPERVISOR [address] [place] [address] PCP - General Family Medicine 11/25/20 01/20/21 Gayatri George, FILES SUPERVISOR [address] [place] [address] PCP - [employer] Attributed 03/02/19 06/01/19 Soila Pineda, SPEECH PATHOLOGY TEACHER [address] [place] [address] [facility] [employer] Dean 05/08/18 11/26/18 Neva Velásquez, RN [address] [facility] [address] [place] [address] [facility] Community Co Founder And Ceo 11/29/18 08/15/21 Albaro Kellogg MD [address] [place] [address] Physician Endocrinology 08/01/19 11/17/20 Aging, [facility] 02/04/20 Ralph Wilcox MD [address] [address] Gastroenterology 11/25/20 [place] [address] [place] [address] Consulting Provider Optometry 11/25/20 Roselia Abernathy MD [address] [place] [address] Obstetrics and Gynecology 11/25/20 documented as of this encounter
--- OUTSIDE RECORDS SUMMARY | 2025-02-19 13:32 | XMS_ITS | Clinical Summary ---
Author Organization [facility] Address [address] [facility] [address] [place] [address] Phone Care Team Providers Care Podiatrist Orthopedic Name Role Phone Tommie Suarez MD Primary [...] 1 Active ergocalciferol (VITAMIN D2) 1.25 MG (18042 UT) capsule @@TAKE 1 CAPSULE BY MOUTH [...] 10,000 UnitsIndications:Anemi a in chronic kidney disease 46845 Units IJ Weekly 11/12/2020 Active ferumoxytol (FERAHEME) injection 510 mgIndications:Other iron deficiency anemia 510 mg IV Once in dialysis 07/05/2021 Active Epoetin Sally-epbx solution 40,000 UnitsIndications:Anemi a in chronic kidney disease,Chronic kidney disease stage 4 (HCC),Hypertensive renal disease 42581 Units IJ Every 7 days 07/15/2021 Active epoetin sally (EPOGEN,PROCRIT) injection 10,000 UnitsIndications:Anemi a due to Renal Failure 95896 Units IV Every 14 days 09/20/2022 Active [...] Comments Breast Cancer Screening 1960 Pneumococcal Vaccine: 50+ Ye ars (1 of 2 - PCV) 1979 Colorectal Cancer Screening: Annual FOBT 2009 Colorectal Cancer Screening: Colonoscopy 2009 Colorectal Cancer Screening: Sigmoidoscopy 2009 Diabetes: Hemoglobin A1C 10/30/2020 Diabetes: Ophthalmology Exam 10/30/2020 Diabetes: Pedal Pulse Checked 10/30/2020 Diabetes: Sensory Foot Exam 10/30/2020 Diabetes: Visual Foot Exam 10/30/2020 Influenza Vaccine (Season Ended) 2025 Hepatitis B Vaccine Aged Out No longe r eligible based on patient's age to complete this topic Insurance [facility] ([id number]) [facility] ([id number]) Care Teams Podiatrist Orthopedic Relationship Specialty Start Date End Date Tommie Suarez MD [address] [facility] [address] [place] [address] PCP - General 10/12/20
--- OUTSIDE RECORDS SUMMARY | 2025-02-19 13:32 | XMS_ITS | Data Portability ---
Author Organization [employer], [place] Address [address] [place] [address] Care Team Providers Care Entry Level Sales Representative Name Role Phone HIM CCA OTHER Assessment Encounter Date Assessment Date Assessment LastModified by Organization Details LastModified Time 03/02/2023 03/02/2023 I have reviewed and agree with the Assessment and Plan as documented by the Product Craftsman. I provided real-time medical direction via phone [...] Assessment and Plan as documented by the Product Craftsman. Patient given the opportunity to ask questions. [...] chest pain or shortness of breath. Per dye range operator on the scene, Patient is leaning forward but not tripoding. She states that she normally breathes this way. She is not in distress but does appear uncomfortable. There is no increased work of breathing. Exam is not a warming to dye range operator on the scene. Her vital signs [...] of any new or worsening serious symptoms [email or web address] Not available 01/16/2024 17:53:57 06/09/2024 06/09/2024 I provided real -time medical direction via phone for this encounter and was available for additional phone-based assistance as needed. I have reviewed and agree with the Assessment and Plan as documented by the Product Craftsman. Patient given the opportunity to ask questions. As per above, patient with hypokalemia unresponsive to oral supplements. Per dye range operator on the scene, VSS, no symptoms. K is 2.6. Cr is 1.8. Impression: Hypokalemia - repeated critical values in the setting of CKD without ability to recheck and frequently monitor in this setting. Additionally unable to evaluate for low mag which could be contributing. Discussed with patient and she agrees given the urgency of the situation. Plan: Transported to [place] ED. Expect call made. Not available 06/09/2024 10:12:54 Plan of Treatment Reminders Order Date Submit Date Provider Last Modified By Organization Details Last Modified Time Details Appointments None recorded . Lab rapid SARS CoV 2 Ag, QL IA, respirat ory specimen 2024 025 [facility], [address] [place] [address], [id number] 5 18:25:57 rapid flu (A+B) 2024 025 [facility], [address] [place] [address], [id number] 5 18:25:57 BMP, serum or plasma 2024 025 [facility], [address] [place] [address], [id number] 5 18:26:12 BMP, serum or plasma 2023 024 [facility], [address] [place] [address], [address] [place] [address] 4 19:48:59 BMP, serum or plasma 2023 024 [facility], [address] [place] [address], [address] [place] [address] 4 08:14:39 rapid flu (A+B) 2023 024 [facility], [address] [place] [address], [address] [place] [address] 4 18:27:02 rapid SARS CoV 2 Ag, QL IA, respirat ory specimen 2023 024 [facility], [address] [place] [address], [id number] 4 18:27:18 respirat ory pathogen s DNA + RNA panel, ANITA+prob e, nasophar ynx 2023 024 [facility] (Centralized Electronic Ordering - All Locations), Patient Can Go To The Location Of Their Choice, [id number] 4 18:05:53 Referral None recorded . Procedures None recorded . Surgeries None recorded . [facility]c [facility]diogra m [facility]24 [facility] [address] [place] [address], [id number] 5 15:10:32 Medication Orders lactated Ringers intraven ous solution [address] [facility], [address] [place] [address], [id number], 5 15:10:32 ondanset gadiel HCl (PF) 4 mg/2 mL injectio n solution 2024 025 [facility], [address] [place] [address], [id number], 5 15:10:32 potassiu m chloride ER 20 mEq tablet,e xtended release 2023 024 [facility], [address] [place] [address], [id number], 23:08:22 Patient TargetsNo targets recorded. Patient InstructionsNo instructions recorded. Reason for Referral None Reported. Results Created Date Observation Date Name Description Value Unit Range Abnormal Flag Note LastModifiedBy Organization Detail LastModifiedTime 01/16/20 24 01/17/2024 COVID -19, FLU A+B AND RSV sars-cov-2, ANITA Not Detect ed not detect ed Not Available [facility] ([facility]) [address] [place], [address], 01/17/2024 18:05:53 01/16/20 24 01/17/2024 COVID -19, FLU A+B AND RSV influenza A, ANITA Detect ed not detect ed abnormal Not Available [facility] ([facility]) [address] [place], [address], 01/17/2024 18:05:53 01/16/20 24 01/17/2024 COVID -19, FLU A+B AND RSV influenza B, ANITA Not Detect ed not detect ed Not Available [facility] ([facility]) [address] [place], [address], 01/17/2024 18:05:53 01/16/20 24 01/17/2024 COVID -19, FLU A+B AND RSV RSV, ANITA Not Detect ed not detect ed Not Available [facility] ([facility]) [address], [place], [address], 01/17/2024 18:05:53 01/16/2001/17/2024 COVID -19, FLU A+B AND RSV test [...] t in this assay . Not Available [facility] ([facility]) [address], [place], [address], 01/17/2024 18:05:53 01/16/20 24 01/16/2024 rapid SARS CoV 2 Ag, QL IA, respi rator y speci men rapid SARS CoV 2 Ag, QL IA, respiratory specimen negati ve Not Available [facility] ed [address] [place] [address], [address] [place] [address] 01/16/2024 15:11:23 01/16/20 24 01/16/2024 rapid flu (A+B) Flu negati ve Not Available [facility] ed [address] [place] [address], [address] [place] [address] 01/16/2024 15:11:17 01/20/20 25 01/19/2025 rapid flu (A+B) Flu negati ve Not Available [facility] ed [address] [place] [address], [address] [place] [address] 01/19/2025 14:46:17 01/20/20 25 01/19/2025 rapid SARS CoV 2 Ag, QL IA, respi rator y speci men rapid SARS CoV 2 Ag, QL IA, respiratory specimen negati ve Not Available [facility] ed [address] [place] [address], [address] [place] [address] 01/19/2025 14:46:14 01/20/20 25 01/19/2025 elect junior diogr am No observ ation record ed. [email or web address] [address], [address] [place] [address] 01/19/2025 18:26:33 Result Notes None recorded. Procedures Surgical History None recorded. Imaging Results Imaging Date Name Status LastModified by Organization Details LastModified Time 01/19/2025 electrocardiogram completed [address], [address] [place] [address] 01/19/2025 18:26:33 Procedure Notes None recorded. Medical Equipment None Reported. Allergies Allergen ID Allergen Name Allergen Category Reaction Reaction Severity Criticality Documentation Date Start Date Code Code System Note Provider Name and Address Organization Details Recorded Time 17545 Substance with sulfonami de structure and antibacte rial mechanism of action (substanc e) medicatio n Not available Not available Not available 01/19/2025 06591 8003 SNOMED Not Available [facility] - production 13:11:58 71234 baclofen medicatio n Not available Not available Not available 01/19/2025 1292 RxNorm Not Available [facility] - production 5 13:11:58 Medications Name Sig Start Date Stop Date [...] Not Available Not Available Not Available FreeStyle Jasper Lite kit active Not Available Not Avail [...] Details Last Updated DateTime 3 80 /min 506648 g 14 /min 96 % 96 % 162.56 cm 97.4 [degF] 150 mm[Hg] 65 mm[Hg] Not Available [facility] - production 3 13:52:48 Date Recorded Body temperature Body weight Respiratory rate Oxygen saturation Oxygen saturation in Arterial blood by Pulse oximetry Heart rate Systolic blood pressure Diastolic blood pressure Provider Name and Address Organization Details Last Updated DateTime 4 101 [degF] 72456.3 2 g 22 /min 93 % 93 % 102 /min 132 mm[Hg] 76 mm[Hg] Not Available 404 Found[facility] - production 4 15:07:43 Date Recorded Heart rate Body weight Respiratory rate Oxygen saturation Oxygen saturation in Arterial blood by Pulse oximetry Body temperature Systolic blood pressure Diastolic blood pressure Provider Name and Address Organization Details Last Updated DateTime 4 86 /min 00222.8 08 g 16 /min 97 % 97 % 97.8 [degF] 176 mm[Hg] 80 mm[Hg] Not Available 404 [facility] - production 4 12:47:36 Date Recorded Oxygen saturation Oxygen saturation in Arterial blood by Pulse oximetry Respiratory rate Body temperature Heart rate Systolic blood pressure Diastolic blood pressure Provider Name and Address Organization Details Last Updated DateTime 4 99 % 99 % 16 /min 98.1 [degF] 88 /min 182 mm[Hg] 90 mm[Hg] Not Available 404 [facility] - production 4 09:00:34 Date Recorded Body temperature Body weight Respiratory rate Body height Heart rate Oxygen saturation Oxygen saturation in Arterial blood by Pulse oximetry Systolic blood pressure Diastolic blood pressure Provider Name and Address Organization Details Last Updated DateTime 5 98.1 [degF] 15304.8 48 g 14 /min 167.64 cm 88 /min 98 % 98 % 130 mm[Hg] 78 mm[Hg] Not Available [facility] - production 5 14:12:56 Social History None recorded. Functional Status None [...] 278 Junaid Felix MD Main - [facility] [address] [place] [address] 12/01/2021 15:12:14 06/02/2022 15:19:20 Nasal congestion 15678686 R09.81 Congestion of nasal sinus 60509338 R09.81 293 Dez Carrillo MD Main - [facility] [address] [place] [phone] 12/02/2021 12:18:57 07/17/2022 14:20:33 1331 Easton Monahan MD Main - [facility] [address] [place] [address] 0 02/01/2022 16:35:18 06/09/2022 14:47:07 Congestive heart failure 65814624 I50.9 Patient presents with edema attriuted to CHF. She had already been seen in clinic earlier in the day and bumex dose was increased. There was no dyspnea or acute symptoms to merit IV loop diuretic administra tion at home. 2194 Rancho Polo MD Main - [facility] [address] [place] [address] 0 03/18/2022 16:59:05 06/07/2022 12:12:53 Exposure to SARS-CoV-2 681075498 Z20.822 3618 Junaid Felix MD Main - [facility] [address] [place] [address] 0 05/30/2022 15:02:11 06/09/2022 12:57:37 Dyspnea on exertion 90603168 R06.09 6744 Beba Rios MD Main - [facility] [address] [place] [address] 0 10/05/2022 17:31:55 10/07/2022 10:24:22 Acute viral bronchitis 525613650 J20.8 9412 Junaid Felix MD Main - [facility] [address] [place] [address] 0 01/12/2023 15:54:12 01/17/2023 10:30:44 Viral gastroenteritis 247563939 A08.4 74584 Rancho Polo MD Main - [facility] [address] [place] [address] 0 03/02/2023 13:52:40 03/10/2023 10:46:13 Peripheral edema 564532480 R60.9 15183 Rosetta Zhang MD Main - [facility] [address] [place] [address] 0 01/16/2024 15:07:33 01/16/2024 22:27:10 Fever 996427021 R50.9 24229 Xiao Guerrero MD Main - [facility] [address] [place] [address] 0 06/07/2024 12:44:50 06/10/2024 22:12:37 Hypokalemia 45074659 E87.6 I provided real -time medical direction via phone for this encounter, and was available for additional phone based assistance as needed. I have reviewed and agree with the Assessment and Plan as documented by the Product Craftsman. Patient given the opportunit y to ask questions. 63 yo seen yesterday in ED for hypokalemi a to 2.5, now being seen by [facility] for close follow up. Just started taking K supplments a few hours ago this am. Unclear the dose as these pills were placed in a pill pack (unable to separate/c larify dose per dye range operator) .Repeat lab 2.6. Will administer 80mEq and advised her to continue taking prescribed supplement al K. will request follow up with [facility] for POC labs on Saturday 06/09. Reviewed warning signs/sx. [address] Rosetta Zhang MD [facility] - [address] [address] 06/09/2024 09:00:29 06/10/2024 22:41:56 Hypokalemia 51982178 E87.6 11263 Rosalva Millard MD [facility] - [address] [address] 01/19/2025 14:12:54 01/20/2025 14:44:36 Nausea and vomiting 75614864 R11.2 R19.7 As noted, we were called to see this patient regarding concerns of nausea and vomiting. Evaluation in the field was performed by my dye range operator colleague, as noted above, I provided real-time direction and supervisio n for this visit. The evaluation revealed 64 yo woman with HTN, DM, CHF who calls for nausea and vomiting for the last day. She has had least 5 episodes in the last day, as well as diarrhea. She has not been able to keep down food, water or her medication s.She denies fevers, chest pain, dyspnea.Sh ale has never had an episode like this before. She did see her PCP last month and had a TTE on 12/31.She takes 40 lantus, 8 novolog (just an hour ago). She did not take her lantus today. COVID, Flu are negative. EKG shows evidence of prior VT without acute ischemic indicators and QTc 472.Cr is 3.1, stable from 2 years ago. She has normal electrolyt es. Impression :Acute nausea, vomiting- borderline DKA Plan:- administer 500cc LR, 4mg IV zofran- recommende d to take 20 lantus tonight and her novolog as scheduled- discussed risks and beenfits of ER visit and patient would prefer to stay home. She has emergency contacts she can call as well as knows when to call EMS- will request repeat visit tomorrow Dispositio n: We discussed the diagnostic uncertaint y of home visits and the risk associated with this. In this case, the patient and I felt this to be an acceptable and reasonable amount of risk given the benefit of avoiding an ED visit. We discussed the need to seek care urgently/e mergently in the setting of any new or worsening serious symptoms, particular ly changes to consciousn ess, chest pain, dyspnea Health Concerns Section Related Observation LastModified by Organization Detai ls LastModified Time None Recorded Concern Status LastModified by Organization Details LastModified Time None Recorded Advance Directives Directive None Recorded Payers Insurance Date Sequence Insurance Name Policy Number Policy Conde Covered Member ID Conde Member ID Guarantor Name 01/20/2025 1 [facility] - DOS PRIOR TO 2022 - DUAL ELIGIBLE (MEDICARE REPLACEMENT/AD VANTAGE - HMO) Natalie Cutler [id number] Natalie Cutler 01/20/2025 1 [facility] - DOS ON OR AFTER 2022 - DUAL ELIGIBLE - CORRECTION OPTIONS AND ONE CARE (MEDICARE REPLACEMENT/AD VANTAGE - HMO) Natalie Cutler [id number] Natalie Cutler Notes Date Note Type Note Provider Name and Address Organization Details Recorded Time 03/02/2023 text/html [facility] Nursing Assessment: Reason For [...] .................... .................... .................... .................... .................... .................... . Product Craftsman Note From Ramses Aguila: Pt caox3 in chair. Pt reports her left foot started swelling x7 days ago, got worse last night. Pt denies trauma, pain, difficulty breathing, dizziness or headache. [place] warm and dry, +1 pedal edema left foot (normal temperature, no blisters). Secondary exam unremarkable. No increased work of breathing, lung sounds clear. orders ot to double her bumex, from 2mg per day to 4mg until Monday. Pt advised to follow up with PCP SAL Red flags and pt education discussed. .................... .................... .................... .................... .................... .................... .................... . Disposition: Fulfilled Rancho Polo MD [address] [facility],[address], [place], [address], [employer] 03/10/2023 08:51:17 01/16/2024 text/html CRC Nurse Triage Notes (Dionna Martinez): Reason For Request: [employer] reporting a cold>cold>jackman sputum>wheezing throughout her lungs [...] denies any sob Rosetta Zhang MD [address] [facility],[address], [place], [address], [employer] 01/16/2024 17:54:07 06/07/2024 text/html CRC Nurse Triage [...] take a diuretic. [facility] Product [facility]sman Organization Information for Benigno Monique Business Legal Name: [facility] Address: [address] [place] [address], [place] [address], Cleaning Attendant: Damian Taylor MD CLIA No.: [id number] Product [employer]sman POC Test Results from Benigno Monique [facility] (13:27:22) pH: 7.388 pH units pCO2: 38.9 mmHg pO2: 54.6 mmHg Na: 138 mmol/L K: 2.6 mmol/L iCa: 1.10 mmol/L Cl: 100 mmol/L TCO2: 23.3 mEq/L Hct: 33 % Hb: 11.2 g/dL Glu: 505 mg/dL Lac: 4.20 mmol/L Cr: 1.77 mg/dL BUN: 17 mg/dL A .................... .................... .................... .................... .................... .................... .................... . Product Craftsman Note From Benigno Monique: Pt sts no [...] assessed, POc bloodwork k 2.6. Lungs clear. C contacted and 80 ml/eq po given. [facility] scheduling Follow up POc bloodwork for Monday or Monday. Pt education on signs indicating the ER. Pt advised to follow up with pcp. .................... .................... .................... .................... .................... .................... .................... . Disposition: Dayami Guerrero MD [address] [facility],[address], [place], [address], [facility] [employer] 06/07/2024 23:08:29 06/09/2024 text/html CRC Nurse Triage Notes (Anne Malave): Reason For Request: Revisit Chief Complaints: Electrolyte Imbalance PMH: Diabetes, Heart Disease, Hypertension, COPD/Asthma, CHF Other Allergies: baclofen and sulfur Comments: [facility] Remarksneeds follow up for POC istat (potassium [...] take a diuretic. Member agreeable to an [facility] visit. Product Craftsman Organization Information for Nish Beyer [employer] Legal Name: [facility] Address: [address] [place] [address], [place] [address], Cleaning Attendant: Damian Taylor MD CLIA No.: [id number] Product Craftsman POC Test Results from Nish Beyer [facility] (08:56:03) pH: 7.41 pH units pCO2: 36.3 mmHg pO2: 33.4 mmHg Na: 142 mmol/L K: 2.6 mmol/L iCa: 1.08 mmol/L Cl: 107 mmol/L TCO2: 22.6 mEq/L Hct: 34 % Hb: 11.5 g/dL Glu: 213 mg/dL Lac: 2.5 mmol/L Cr: 1.8 mg/dL BUN: 22 mg/dL A .................... .................... .................... .................... .................... .................... .................... . Product Craftsman Note From Nish Beyer: Today? s visit [...] Normal gait. Today? s potassium is 2.6. [facility] contacted and recommended the pt be seen in the ED. Pt agreeable to ambulance transport to [facility]. SB[facility] to [facility]. .................... .................... .................... .................... .................... .................... .................... . Disposition: Fulfilled Rosetta Zhang MD [address] [facility],[address], [place], [address], [employer] 06/09/2024 10:13:32 01/19/2025 text/html HPI: reports nausea and vomiting started yesterday, also having loose stools x 5. Not tolerating po intake. afebrile. denies all other symptoms except reports a sore throat. No sick contacts. She is requesting an [facility] visit. .................... .................... .................... .................... .................... .................... .................... . [facility] Nurse Triage Notes (Kathryn Gonzalez): Chief Complaints: Nausea / Vomiting, Diarrhea, Sore Throat PMH: Coronary Artery Disease, Hypertension, COPD/Asthma, Congestive Heart Failure, Chronic Kidney Disease PMH Reviewed at 01/19/2025: Allergies Reviewed at 01/19/2025:11 Comments: CRC RN does not need additional information to process visit -Gilda ROLDAN Product Craftsman Organization Information for Mita Delacruz Business Legal Name: [employer]? Address: [address] [place] [address] Cleaning Attendant: Rd Smith MD CLIA No.: [id number] Product Craftsman POC Test Results from [email or web address] Rapid COVID antigen (14:22:18) COVID: - Attachments uploaded as part of this test result can be found under Documents section. Rapid influenza antigen (14:22:19) Flu: - EKG (14:35:35) EKG test performed. Attachments uploaded as part of this test result can be found under Documents section. iSTAT Chem8+ (14:50:34) Na: 135 mEq/L K: 4.0 mEq/L Cl: 100 mEq/L iCa: 1.21 mmol/L TCO2: 18 mmol/L Glu: 310 mg/dL BUN: 32 mg/dL Crea: 3.1 mg/dL Hct: 36 % Hb: 12.2 g/dL A mmol/L Cartridge Number: [id number] Attachments uploaded as part of this test result can be found under Documents section. .................... .................... .................... .................... .................... .................... .................... . Product Craftsman Note From Mita Delacruz: [facility] makes pt contact. She is found seated in a recliner in her sparsely furnished apartment where she lives alone. She is watching [facility] approach. She appears to be fatigued, but no ashen or boyd color are noted. No stridor or sonorous respirations are heard, no facial droop or one-sided weakness are observed, and she is not bleeding anywhere. Pt endorses n/v/d since yesterday. She has had decreased PO and can't hold anything down if she tries. She has been unable to take her medications. She denies fevers/chills, cp, sob, or cough and no urinary issues are reported. Pt does endorse a sore throat. She does not offer much for conversation, only speaking when asked questions, but she is able to answer all questions appropriately, but w/ a mild delay. She says she has never been sick like this before and her blood sugar has been high today. [facility] obtains vital signs and pt is assessed. Lung sounds are clear and equal to auscultation. Abdomen is soft and nontender w/ no guarding, distension, or pulsating masses noted. No back pain or CVA tenderness and CMS is intact in all four extremities. Pt still has her gall bladder and her appendix. Pt is swabbed for COVID/flu and both are negative. [facility] contacts [facility] and discusses the above. [facility] orders an IV and bmp and an EKG. [facility] obtains a 12-lead EKG that shows a sinus rhythm w/ artifact. No acute ST or T wave abnormalities are noted. A 20ga IV is established in the R forearm and blood is drawn for bmp. IV is flushed and locked w/ a saline lock and secured. [facility] orders 500mls LR and 4mg zofran IV for pt after determining pt does not want to go to the hospital today. [facility] discusses her concerns about DKA w/ the pt. Pt agrees to IV fluids and meds and a revisit tomorrow. [facility] also orders pt to only take 20units of her Lantus tonight. 500mls LR are administered and 4mg zofran is administered through the IV line SIVP. Pt falls asleep during treatment. She appears to tolerate tx well. She cannot tell [facility] if she feels better or not post fluids, but she would like to take a nap. [facility] discusses s/s that require pt to seek emergency care. She gives her verbal understanding and repeats back to [facility] the instructions for taking a reduced dose of Lantus this evening. [facility] is clear. Report completed by CANDE Delacruz [id number]. [facility] Lab Orders: rapid SARS CoV 2 Ag, QL IA, respiratory specimen: Performed rapid flu (A+B): Performed BMP, serum or plasma: Performed [facility] Medication Orders: lactated Ringers intravenous solution: Administered ondansetron HCl (PF) 4 mg/2 mL injection solution: Administered .................... .................... .................... .................... .................... .................... .................... . [facility] Consulted: Rosalva Millard .................... .................... .................... .................... .................... .................... .................... . Disposition: Fulfilled Rosalva Millard MD [address] [facility],[address], [place], [phone], LALITHA - Nuzzel, BREANNE 01/19/2025 19:42:30 OBGyn Episode No OBEpisode recorded.
--- OUTSIDE RECORDS SUMMARY | 2025-02-19 13:32 | XMS_ITS | Encounter Summary ---
Author Organization [facility] Address [address] [place] [address] Care Team Providers Care Principal Secretary Name Role Phone Alison Aguirre APRN Primary Care Provider [phone] Gurjit Baum MD Primary Care Provider [phone] Alison Aguirre APRN Primary Care Provider [phone] Soila Pineda Unavailable [phone] Gayatri George APRN Primary Care Provider Neva Velásquez RN Unavailable Albaro Kellogg MD Unavailable Aging, [facility] Unavailable [phone] Ralph Wilcox MD Unavailable [phone] Otilia Paulson OD Unavailable [phone] Roselia Abernathy MD Unavailable [phone] Gayatri George APRN Primary Care Provider [phone] Gayatri George APRN Unavailable [phone] Encounter Details Date Type Department Care Team (Late st Contact Info) Description 09/18/2017 Scanned Document [address] [address] Provider, Generic Social History Tobacco Use Types [...] on filedocumented in this encounter Care Teams Principal Secretary Relationship Specialty Start Date End Date Alison Aguirre APRN PCP - General Internal Medicine 06/06/17 10/15/17 Gurjit Baum MD [address] [place] [address] PCP - General Internal Medicine 10/16/17 10/23/17 Alison Aguirre APRN PCP - General Internal Medicine 10/24/17 07/16/18 Gayatri George APRN [address] [place] [address] PCP - General Family Medicine 07/17/18 11/17/20 Gayatri George APRN [address] [place] [address] PCP - General Family Medicine 11/25/20 01/20/21 Gayatri George APRN [address] [place] [address] PCP - [place] Medicare Attributed 03/02/19 06/01/19 Soila Pineda, CHIEF OF INTERNAL MEDICINE [address] [place] [address] ICP PCMH+ Transformer Repairer 05/08/18 11/26/18 Neva Velásquez, RN [address] [place] [address] ICP Community Creel Clerk 11/29/18 08/15/21 Albaro Kellogg MD [address] [place] [address] Physician Endocrinology 08/01/19 11/17/20 Aging, [facility] 02/04/20 Ralph Wilcox MD [address] [place] [address] Gastroenterology 11/25/20 Otilia Paulson OD [address] [place] [address] Consulting Provider Optometry 11/25/20 Roselia Abernathy MD [address] [place] [address] Obstetrics and Gynecology 11/25/20 documented as of this encounter
--- OUTSIDE RECORDS SUMMARY | 2025-02-19 13:32 | XMS_ITS | Encounter Summary ---
Author Organization [facility] Address [address] [facility] [address] [place] [address] Phone Care Team Providers Care Diffusion Operator Name Role Phone Tommie Suarez MD Primary Care Provider Encounter Details Date Type Department Care Team (Late st Contact Info) Description 01/27/2021 Orders Only [facility] [address] [place] [id number] Leann Molian RN Social History Tobacco Use Types Packs/Day [...] on filedocumented in this encounter Care Teams Diffusion Operator Relationship Specialty Start Date End Date Tommie Suarez MD 10 [facility] [address] [place] [address] PCP - General 10/12/20 documented as of this encounter
== END 2025-02-19 13:22 | disposition home or self-care (01) ==
LOC: HO.HCS 12:54
PROVIDERS: PCP Internal Medicine
DX: I50.9 Heart failure, unspecified (principal); E11.22 Type 2 diabetes mellitus with diabetic chronic kidney disease; N18.4 Chronic kidney disease, stage 4 (severe); Z79.4 Long term (current) use of insulin; I12.9 Hypertensive chronic kidney disease with stage 1 through stage 4 chronic kidney disease, or unspecified chronic kidney disease; E78.5 Hyperlipidemia, unspecified; G47.33 Obstructive sleep apnea (adult) (pediatric)
CPT/HCPCS: 99214; G2211

== ENCOUNTER → 2025-02-19 12:54 | Outpatient (BNVA) | payer OTHER, SELFPAY | PROVIDERS: PCP Internal Medicine | DX: E11.22 Type 2 diabetes mellitus with diabetic chronic kidney disease (principal); I13.0 Hypertensive heart and chronic kidney disease with heart failure and stage 1 through stage 4 chronic kidney disease, or unspecified chronic kidney disease; I50.9 Heart failure, unspecified; N18.4 Chronic kidney disease, stage 4 (severe); E78.5 Hyperlipidemia, unspecified; G47.33 Obstructive sleep apnea (adult) (pediatric); Z79.4 Long term (current) use of insulin | CPT/HCPCS: 99212 ==

== ENCOUNTER 2025-02-25 10:14 | Outpatient (AMB) | payer OTHER, SELFPAY ==
--- NOTE | 2025-02-25 10:23 | HO.NEPHOV ---
Vital Signs 02/25/25 10:25 Height 5 ft 6 in Weight 200 lb 4 oz BMI 32.3 BP 136/70 Blood Pressure Location Rt brachial Position Sitting Intake Visit Reasons: 3mon follow-up w/labs-Conf Commercial Litigation Attorney Required: No Accompanied by: Self / Same As Patient Allergies baclofen Allergy (Severe, Verified 02/25/25 10:25) can't move sulfacetamide Allergy (Severe, Verified 02/25/25 10:25) tongue swelling sulfur Allergy (Severe, Verified 02/25/25 10:25) tongue swelling HPI Comments Details: Ms. Cutler was seen in the office in follow-up of her chronic kidney disease, hypertension and anemia. She denies any headache, visual disturbance, nausea, vomiting, diarrhea, chest pain, shortness of breath, worsening pedal edema or urinary symptoms. She denies any uremic symptoms. She claims to have her blood sugars better .She denies taking any xfyb-euc-kurwovj medications. She is on lipid-lowering agents. Her blood pressure is better controlled. [facility] Medical History Sleep apnea Myocardial infarction CVA (cerebral vascular accident) Type 2 diabetes mellitus with diabetic polyneuropathy Chronic kidney disease, stage 4 (severe) Essential hypertension Hyperlipidemia LDL goal <70 Obesity due to excess calories Chronic, continuous use of opioids Chronic pain syndrome Spinal stenosis, lumbar region with neurogenic claudication Surgical History History of rotator cuff surgery History of abdominoplasty Status post breast reduction Hx of toe surgery Family History Father No problems noted. Mother Diabetes Hypertension Sister No problems noted. Sister No problems noted. Son No problems noted. Social History Household Members: Friend(s) Household Members Other:: roomate Housing: Apartment Alcohol intake: never Patient Tobacco Use Status: Former Tobacco user Tobacco use type: Cigarette Cigarette Packs Per Day: 0.5 e-Cigarette/Vaping Use: Never Used Second Hand Smoke Exposure: No Advance Directives Date on File: 07/07/20 service: No Current occupational status: disabled Current occupational exposures/hazards: No Cognitive needs: No Hearing needs: No Vision needs: No Review of Systems Const All systems reviewed & are unremarkable except as noted in HPI and below Physical Exam Vital Signs: Last Vital Signs BP 136/70 02/25/25 10:25 BMI result Body Mass Index 32.3 Const General: comfortable and no acute distress Orientation/consciousness: patient oriented x3 HEENT Head: Yes normocephalic Mouth: Normal oral and palatal mucosa present Eyes EOM: EOMs intact bilaterally Neck Neck: Yes supple Resp Auscultation: clear to auscultation bilaterally Cardio Jugular venous distension: no JVD Rate: regular rate GI Palpation (GI): Soft to palpation Auscultation: normal bowel sounds General: Yes no CVA tenderness Back/Spine/Pelvis Back: no CVA tenderness Skin General skin exam: no rashes or lesions noted Neuro General: patient oriented x3 and moves all extremities Extrem General: Yes no pedal edema Office Meds epoetin sally-epbx 10,000 unit/mL injection solution Performing Provider: Lamonte Quiroga MD Performing Location: [facility] [place] [facility] Administered by: Lamonte Quiroga MD on 02/25/25 10:41 Dose Route Admin Location Dispensed Lot Number Expiration Date [facility] Box Tender 20,000 unit subcut LUE 2 mL [id number] 08/02/26 [id number] 0xdata PHARM Assessment & Plan Assessment & Plan (1) Anemia in chronic kidney disease: Code(s): N18.9 - Chronic kidney disease, unspecified; D63.1 - Anemia in chronic kidney disease Category: Medical Qualifiers: Chronic kidney disease stage: stage 4 (severe) Qualified Code(s): N18.4 - Chronic kidney disease, stage 4 (severe); D63.1 - Anemia in chronic kidney disease (2) Essential hypertension: Code(s): I10 - Essential (primary) hypertension Category: Medical (3) Chronic kidney disease, stage 4 (severe): Code(s): N18.4 - Chronic kidney disease, stage 4 (severe) Category: Medical (4) Secondary hyperparathyroidism (of renal origin): Code(s): N25.81 - Secondary hyperparathyroidism of renal origin Category: Medical Plan 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 She had not been tolerating ALEJO-inhibitor but is on hydralazine and Imdur. Her previous renal ultrasound had shown thinning of renal cortex. She had extensive workup done which did not show any other etiology for her CKD. She could continue Bumex every other day. She should cut back sodium in the diet. She had iron deficiency and had received Venofer . She also had been on Procrit. I gave 07864 Units in the office today. She is on Jardiance. She has history of secondary hyperparathyroidism of renal origin. She had been on vitamin-D and calcitriol. All questions answered Orders: Orders AMB Epoetin Injection Practice Supplied Today D63.1 - Anemia in chronic kidney disease, N18.4 - Chronic kidney disease, stage 4 (severe) Parathyroid Hormone Intact 6 Weeks D63.1 - Anemia in chronic kidney disease, I10 - Essential (primary) hypertension, N18.4 - Chronic kidney disease, stage 4 (severe), N25.81 - Secondary hyperparathyroidism of renal origin Vitamin D 25-OH Total 6 Weeks D63.1 - Anemia in chronic kidney disease, I10 - Essential (primary) hypertension, N18.4 - Chronic kidney disease, stage 4 (severe), N25.81 - Secondary hyperparathyroidism of renal origin Electrolytes 6 Weeks D63.1 - Anemia in chronic kidney disease, I10 - Essential (primary) hypertension, N18.4 - Chronic kidney disease, stage 4 (severe), N25.81 - Secondary hyperparathyroidism of renal origin Calcium 6 Weeks D63.1 - Anemia in chronic kidney disease, I10 - Essential (primary) hypertension, N18.4 - Chronic kidney disease, stage 4 (severe), N25.81 - Secondary hyperparathyroidism of renal origin Complete Blood Count Auto Diff 6 Weeks D63.1 - Anemia in chronic kidney disease, I10 - Essential (primary) hypertension, N18.4 - Chronic kidney disease, stage 4 (severe), N25.81 - Secondary hyperparathyroidism of renal origin Blood Urea Nitrogen 6 Weeks D63.1 - Anemia in chronic kidney disease, I10 - Essential (primary) hypertension, N18.4 - Chronic kidney disease, stage 4 (severe), N25.81 - Secondary hyperparathyroidism of renal origin Creatinine 6 Weeks D63.1 - Anemia in chronic kidney disease, I10 - Essential (primary) hypertension, N18.4 - Chronic kidney disease, stage 4 (severe), N25.81 - Secondary hyperparathyroidism of renal origin Coding Level of Care Code Est Pt Level 4 (62734) Diagnoses Anemia in stage 4 chronic kidney disease N18.4; D63.1 Chronic kidney disease stage: stage 4 (severe) Essential hypertension I10 Chronic kidney disease, stage 4 (severe) N18.4 Secondary hyperparathyroidism (of renal origin) N25.81
[2025-02-25 10:25] VITALS: BP 136/70; BMI 32.3
--- OUTSIDE RECORDS SUMMARY | 2025-02-25 10:59 | XMS_ITS | Clinical Summary ---
Author Organization [facility] Address [address] [place] [address] Care Team Providers Care Straw Hat Machine Operator Name Role Phone [facility] Unavailable [phone] Ralph Wilcox MD Unavailable [phone] Otilia Paulson OD Unavailable [phone] Roselia Abernathy MD Unavailable [phone] Allergies Active Allergy Reactions Criticality Noted Date [...] with long-term current use of insulin ([facility]) Use to check FSBG 2 X daily. 200 lancet 019 Active lidocaine (XYLOCAINE) 4 % external solutionIndications:Farida betic polyneuropathy associated with type 2 diabetes mellitus ([facility]) Apply topically 4 (four) times a day [...] diabetes mellitus with neurological manifestations, uncontrolled(250.62) ([facility]) Once nightly injection 120 pen needle 11 019 Active ACCU-CHEK ABNER PLUS stripIndications:Type II or unspecified type diabetes mellitus with neurological manifestations, uncontrolled(250.62) ([facility]) 4 times daily. 120 test strip 11 Active Continuous Blood Gluc Pipe Smoking Machine Offbearer (FREESTYLE EMILE 14 DAY READER) DeviceIndications:Type II or unspecified type diabetes mellitus with neurological manifestations, uncontrolled(250.62) ([facility]) Apply 1 Device topically continuous. 1 Device 019 Active glucose blood (ACCU-CHEK ABNER PLUS) test stripIndications:Contro lled type 2 diabetes mellitus with diabetic polyneuropathy, with long-term current use of insulin ([facility]) TEST TWICE DAILY 200 test strip Active polyethylene glycol-electrolytes (NuLYTELY, TRILYTE) 420 g solution MIX AND DRINK UTD 0 019 Active Insulin Syringe-Needle U-100 (INSULIN SYRINGE 1CC/31GX5/16 ) 31G X 5/16 1 ML Misc U WITH EPOGEN Q 14 DAYS 1 019 Active SUPPLY DME MISCIndications:Stage 2 skin ulcer of sacral region ([facility]) Pressure relieving cushion 1 supply 019 Active Continuous Blood Gluc Sensor (FREESTYLE EMILE 14 DAY SENSOR) MiscIndications:Type II or unspecified type diabetes mellitus with neurological manifestations, uncontrolled(250.62) ([facility]) Apply 1 Device topically continuous. Apply new [...] pen 3 019 Active epoetin sally (EPOGEN,PROCRIT) 47508 UNIT/ML injectionIndications:An emia, chronic renal failure, stage 4 (severe) ([facility]) Inject 2 mL (20,000 Units total) under the skin every 14 days (2 weeks). 14 mL 1 019 Active SYRINGE-NEEDLE, DISP, 3 ML (B-D 3CC LUER-LUCRETIA SYR 25GX1/2 ) 25G X 1-/2 3 ML MiscIndications:Anemia, chronic renal failure, stage 4 (severe) ([facility]) Please use to inject Procrit Q 14 [...] diabetes mellitus with neurological manifestations, uncontrolled(250.62) ([facility]) INJECT SUBCUTANEOUSLY 20 UNITS DAILY 10 pen 3 019 Active dulaglutide (TRULICITY) 0.75 MG/0.5ML subcutaneous injectionIndications:Co ntrolled type 2 diabetes mellitus with diabetic polyneuropathy, with long-term current use of insulin ([facility]) Inject 0.5 mL (0.75 mg total) under the skin once a week. 4 pen 3 019 Active carvedilol (COREG) 6.25 MG tabletIndications:Essen tial hypertension TAKE 2 TABLETS(12.5 MG) BY MOUTH TWICE DAILY WITH MEALS 360 tablet 020 Active DULoxetine (CYMBALTA) 60 MG capsuleIndications:Diab etic polyneuropathy associated with type 2 diabetes mellitus ([facility]) Take 1 capsule (60 mg total) by [...] 60 mg daily. She is leaving for [place] next week, will be gone for 1 month. She will follow-up with me when she returns. Assessment & Plan (05/01/2019 3:41 PM EDT): Neurology recommended a trial of Cymbalta. Tapering instructions given for Zoloft. After tapered start Cymbalta 30 mg daily. She is leaving for [place] on 05/21 for 1 month, follow-up prior [...] was seeing one when she lived in [place]. She states that she had an EMG [...] function. She uses the pain medication sparingly. FILLING LAYER UP reviewed. She is willing to try Tramadol instead of Percocet. Follow up in 1 month. Shortness of breath 08/15/2018 Assessment & Plan (08/15/2018 6:10 PM EST): Shortness of breath specifically after eating. Order placed for a barium swallow to screen for a hiatal hernia. termite treater prescription opiate use 08/15/2018 Moderate persistent asthma [...] she has an upcoming appointment with the sleeve wheel maker. Repeat A1c due in January. Assessment & [...] & Plan (04/18/2019 7:31 AM EDT): Her rework operator ordered repeat blood work, await these results. 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 Assessment & Plan (02/20/2019 3:32 PM EDT): Her rework operator ordered repeat labs, anemia noted to be worse. He is increasing her Epogen. She has follow-up with him in April. Assessment & Plan (12/24/2018 1:27 PM EDT): Followed by nephrology, had recent labs. Epogen dosing was increased. She has follow-up at the end of December. Assessment & Plan (09/13/2018 12:49 PM EST): Patient had blood work done that was ordered by her rework operator. Noted to be iron deficient, she will start 325 mg of ferrous sulfate daily. Assessment & Plan (08/15/2018 6:09 PM EST): Check iron panel, if this is normal I will start Epogen. Her rework operator is in agreement. Vitamin D deficiency 06/26/2017 [...] her iron levels. I also spoke with [facility] and she has an appointment with [...] time. She is due to see her air traffic control equipment repairer in September. Resolved Problems Problem Noted Date Diagnosed Date Resolved Date Stage 2 skin ulcer of sacral region 04/18/2019 06/14/2019 Assessment & Plan (05/01/2019 3:41 PM EDT): Much improved, almost completely healed. Continue with topical zinc daily. Assessment & Plan (04/18/2019 7:30 AM EDT): Prescription for pressure relieving pad given to patient. Also recommend applying mqkx-gpz-qyauulx zinc oxide twice daily. Follow-up in 2 weeks for reassessment. Follow-up surgery care 01/13/201802/20 Sexual dysfunction in females 01/11/2018 02/20/2019 Family History Medical History Relation Name Comments [...] Smear (Ages 21-65) 05/02/2021 05/02/2018 COVID-19 Vaccine (1 - 2023-25 season) 2024 Influenza Vaccine 05/02/2025 Colonoscopy 12/10/2028 [...] AM EDT Breast screening THINPREP PAP TEST (BELT MEASURER) WITH HPV REFLEX Routine 05/02/2018 12:00 AM [...] of LDL-C. Mumtaz SS et al. MILAN. 2013;310(49): 8825-3161 (http://education.The Original SoupMan/faq/RDI206) Cholesterol/HDL Ratio 2.0 <5.0 (calc) [facility] Non HDL Chol. (LDL+VLDL) 42 <130 mg/dL (calc) [facility] Comment: For patients with diabetes plus 1 major ASCVD risk factor, treating to a non-HDL-C goal of <100 mg/dL (LDL-C of <70 mg/dL) is considered a therapeutic option. Blood specimen (specimen) 07/09/2019 10:45 AM EDT 07/09/2019 10:45 AM EDT Narrative [facility] - 07/10/2019 12:49 AM EDT FASTING:YES FASTING: YES Resulting Agency Comment Performing Organization Information: ?Site ID: [id number] ?Name: [employer] ?Address: [address] [place] [address], [place] [address] ?Director: Shawn Goel MD Brenda Tony MD LAB BLOOD ORDERABLES Final R esult [facility] [address] [place] [address], [place] [address] * (ABNORMAL) POCT Glycosylated Hemoglobin (Hb A1C) (04/30/2019 8:51 AM EDT) Hemoglobin A1C 7.6(A) 4.0 - 6.0 % Lot Number 1 Hostess Pass Pass Blood specimen (specimen) 04/30/2019 8:51 [...] approximately 13% higher for people identified as -Ghanaian. eGFR Non- 26(L) > OR = 60 [...] Performing Organization Information: ?Site ID: [id number] ?Name: [employer] ?Address: [address] [place] [address], [place] [address] ?Director: Shawn Goel MD Gurjit Baum MD LAB BLOOD ORDERABLES Final Resu lt [facility] [address], [place] [address] * OPHTHALMOLOGY TESTING PROCEDURES (04/02/2019) External Provider HX AMB PROCEDURES Final Res ult * HX GASTROENTEROLOGY COLONOSCOPY-SCAN (12/10/2018) Gayatri George RECYCLABLE MATERIALS SORTER HX AMB PROCEDURES Final Re sult * [...] S Final Result * ThinPrep Pap Test (Drafter Commercial) with HPV Reflex (05/02/2018 12:00 AM EDT) [...] has been evaluated with computer assisted technology. Money Market Clerk: [facility] Comment: [place], [place](ASCP) CT screening location: [address] ??[id number] Comment [facility] Comment: EXPLANATORY NOTE: The Pap [...] Performing Organization Information: ?Site ID: [id number] ?Name: [employer] ?Address: [address] [place] [address], [place] [address] ?Director: Shawn Goel MD us Roselia Abernathy MD LAB AMB PATH/CYTO ORDERAB LES Final Result Performing Organization Address City/[facility]/ZIP Co de Phone Number [facility] [address] [place] [address] * HIV 1/2 Ag/Ab CMIA Reflex to Confirmation (06/13/2017 9:51 AM EDT) Pathologist [facility] HIV 1/2 Ag/Ab CMIA Negative Negative HOSPITAL LAB Comment: Results show no evidence of infection by HIV 1/2. If clinically indicated, repeat CMIA or test by nucleic acid amplification. Performed at [facility], [place], [place] ??CT License [id number] ??CLIA [id number] Blood specimen (specimen) 06/13/2017 9:51 AM EDT 06/13/2017 1:00 PM EDT us Alison Aguirre RECYCLABLE MATERIALS SORTER LAB BLOOD ORDERABLES Lisa l Result HOSPITAL LAB from Last 3 Months or Most Recently Relevant to Health Maintenance Insurance [facility] [employer] MGD MEDICARE [facility] Advance Directives * Full Code (Latest Code Status on File) Date Activated Date Inactivated Comments 01/07/2019 10:11 AM * Full Code Date Activated Date Inactivated Comments 12/26/2017 3:41 PM 02/06/2018 1:44 PM Question Answer Comments Decision Thoroughly Discussed with: Patient Care Teams Straw Hat Machine Operator Relationship Specialty Start Date End Date Aging, [place] [facility] 02/04/20 Ralph Wilcox MD [address] [place] [address] Gastroenterology 11/25/20 Otilia Paulson OD [address] [place] [address] Consulting Provider Optometry 11/25/20 Roselia Abernathy MD [address] [place] [address] Obstetrics and Gynecology 11/25/20
== END 2025-02-25 10:53 | disposition home or self-care (01) ==
LOC: HO.HKAS 10:15
PROVIDERS: PCP Family Medicine; Visit Provider Internal Medicine Nephrology
DX: I12.9 Hypertensive chronic kidney disease with stage 1 through stage 4 chronic kidney disease, or unspecified chronic kidney disease (principal); N18.4 Chronic kidney disease, stage 4 (severe); D63.1 Anemia in chronic kidney disease; N25.81 Secondary hyperparathyroidism of renal origin
CPT/HCPCS: 99214

== ENCOUNTER → 2025-02-25 10:14 | Outpatient (BNVA) | payer OTHER, SELFPAY | PROVIDERS: PCP Family Medicine; Visit Provider Internal Medicine Nephrology | DX: I12.9 Hypertensive chronic kidney disease with stage 1 through stage 4 chronic kidney disease, or unspecified chronic kidney disease (principal); N18.4 Chronic kidney disease, stage 4 (severe); N25.81 Secondary hyperparathyroidism of renal origin; D63.1 Anemia in chronic kidney disease | CPT/HCPCS: 96372; 99212; Q5106 ==

== ENCOUNTER → 2025-04-11 23:59 | Outpatient (BNV) | payer OTHER, SELFPAY | PROVIDERS: PCP Family Medicine; Visit Provider Family Medicine | DX: J96.01 Acute respiratory failure with hypoxia (principal); R78.81 Bacteremia | CPT/HCPCS: G0179 ==

== ENCOUNTER 2025-04-17 13:39 | Outpatient (AMB) | payer OTHER, SELFPAY ==
--- NOTE | 2025-04-17 14:07 | HO.NEPHOV ---
Vital Signs 04/17/25 14:14 Height 5 ft 6 in Weight 189 lb 2 oz BMI 30.5 BP 140/80 H Blood Pressure Location Rt brachial Position Sitting Intake Visit Reasons: 6wk Procrit follow-up w/labs-Conf Residence Manager Required: No Accompanied by: Self / Same As Patient Allergies baclofen Allergy (Severe, Verified 04/17/25 14:14) can't move sulfacetamide Allergy (Severe, Verified 04/17/25 14:14) tongue swelling sulfur Allergy (Severe, Verified 04/17/25 14:14) tongue swelling HPI Comments Details: Ms. Cutler was seen in the office in follow-up of her chronic kidney disease, hypertension and anemia. She had R 1 toe amputated. Her wound has not been healing. She denies any headache, visual disturbance, nausea, vomiting, diarrhea, chest pain, shortness of breath, worsening pedal edema or urinary symptoms. She denies any uremic symptoms. She claims to have her blood sugars better .She denies taking any jddj-uxz-iwjxuxl medications. She is on lipid-lowering agents. Her blood pressure is better controlled. [facility] Medical History (Updated 02/25/25 @ 10:36 by Lamonte Quiroga MD) Anemia in chronic kidney disease Sleep apnea Myocardial infarction CVA (cerebral vascular accident) Type 2 diabetes mellitus with diabetic polyneuropathy Chronic kidney disease, stage 4 (severe) Essential hypertension Hyperlipidemia LDL goal <70 Obesity due to excess calories Chronic, continuous use of opioids Chronic pain syndrome Spinal stenosis, lumbar region with neurogenic claudication Surgical History History of rotator cuff surgery History of abdominoplasty Status post breast reduction Hx of toe surgery Family History Father No problems noted. Mother Diabetes Hypertension Sister No problems noted. Sister No problems noted. Son No problems noted. Social History Household Members: Friend(s) Household Members Other:: roomate Housing: Apartment Alcohol intake: never Patient Tobacco Use Status: Former Tobacco user Tobacco use type: Cigarette Cigarette Packs Per Day: 0.5 e-Cigarette/Vaping Use: Never Used Second Hand Smoke Exposure: No Advance Directives Date on File: 07/07/20 service: No Current occupational status: disabled Current occupational exposures/hazards: No Cognitive needs: No Hearing needs: No Vision needs: No Review of Systems Const All systems reviewed & are unremarkable except as noted in HPI and below Physical Exam Vital Signs: Last Vital Signs BP 140/80 H 04/17/25 14:14 BMI result Body Mass Index 30.5 Const General: comfortable and no acute distress Orientation/consciousness: patient oriented x3 HEENT Head: Yes normocephalic Mouth: Normal oral and palatal mucosa present Eyes EOM: EOMs intact bilaterally Neck Neck: Yes supple Resp Auscultation: clear to auscultation bilaterally Cardio Jugular venous distension: no JVD Rate: regular rate GI Palpation (GI): Soft to palpation Auscultation: normal bowel sounds General: Yes no CVA tenderness Back/Spine/Pelvis Back: no CVA tenderness Skin General skin exam: no rashes or lesions noted Neuro General: patient oriented x3 and moves all extremities Office Meds epoetin sally-epbx 10,000 unit/mL injection solution Performing Provider: Lamonte Quiroga MD Performing Location: [facility] Administered by: Lamonte Quiroga MD on 04/17/25 14:33 Dose Route Admin Location Dispensed Lot Number Expiration Date [facility] [employer] 20,000 unit subcut LUE 2 mL [id number] 11/02/26 6304-8847-50 [employer] Total Dispensed Waste 2 mL 0 % Assessment & Plan Assessment & Plan (1) Essential hypertension: Code(s): I10 - Essential (primary) hypertension Category: Medical (2) Secondary hyperparathyroidism (of renal origin): Code(s): N25.81 - Secondary hyperparathyroidism of renal origin Category: Medical (3) Type 2 diabetes mellitus with diabetic chronic kidney disease: Code(s): E11.22 - Type 2 diabetes mellitus with diabetic chronic kidney disease Category: Medical Qualifiers: Chronic kidney disease stage: stage 4 (severe) Diabetes mellitus terminal clerk insulin use: with terminal clerk use Qualified Code(s): E11.22 - Type 2 diabetes mellitus with diabetic chronic kidney disease; N18.4 - Chronic kidney disease, stage 4 (severe); 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 She had BRANDON on CKD due to tubular injury. She had not been tolerating ALEJO-inhibitor but is on hydralazine and Imdur. Her previous renal ultrasound had shown thinning of renal cortex. She had extensive workup done which did not show any other etiology for her CKD. She could continue Bumex every other day. She should cut back sodium in the diet. She had iron deficiency and had received Venofer . She also had been on Procrit. I gave 24254 Units in the office today. She is on Jardiance. She has history of secondary hyperparathyroidism of renal origin. She had been on vitamin-D and calcitriol. All questions answered Orders: Orders Blood Urea Nitrogen 2 Weeks D63.1 - Anemia in chronic kidney disease, E11.22 - Type 2 diabetes mellitus with diabetic chronic kidney disease, I10 - Essential (primary) hypertension, N17.9 - Acute kidney failure, unspecified, N18.4 - Chronic kidney disease, stage 4 (severe), N25.81 - Secondary hyperparathyroidism of renal origin, Z79.4 - alf (current) use of insulin AMB Epoetin Injection Practice Supplied Today D63.1 - Anemia in chronic kidney disease, N18.4 - Chronic kidney disease, stage 4 (severe) Complete Blood Count Auto Diff 2 Weeks D63.1 - Anemia in chronic kidney disease, E11.22 - Type 2 diabetes mellitus with diabetic chronic kidney disease, I10 - Essential (primary) hypertension, N17.9 - Acute kidney failure, unspecified, N18.4 - Chronic kidney disease, stage 4 (severe), N25.81 - Secondary hyperparathyroidism of renal origin, 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 Creatinine 2 Weeks D63.1 - Anemia in chronic kidney disease, E11.22 - Type 2 diabetes mellitus with diabetic chronic kidney disease, I10 - Essential (primary) hypertension, N17.9 - Acute kidney failure, unspecified, N18.4 - Chronic kidney disease, stage 4 (severe), N25.81 - Secondary hyperparathyroidism of renal origin, 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 Electrolytes 2 Weeks D63.1 - Anemia in chronic kidney disease, E11.22 - Type 2 diabetes mellitus with diabetic chronic kidney disease, I10 - Essential (primary) hypertension, N17.9 - Acute kidney failure, unspecified, N18.4 - Chronic kidney disease, stage 4 (severe), N25.81 - Secondary hyperparathyroidism of renal origin, 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
[2025-04-17 14:14] VITALS: BP 140/80; BMI 30.5
--- OUTSIDE RECORDS SUMMARY | 2025-04-17 14:19 | XMS_ITS ---
Continuity of Care Document (CCD) Created on: April 17, 2025 Natalie Cutler External Reference #: [id number] : [id number] Sex: Female Author Organization [facility] [address] [place] [address] Phone [phone] Care Team Providers Care Relief Salesperson Name Role Phone Jennifer Block MD Care Team Information Line Locator [phone] Problems Active Problems Provider Date Type 2 diabetes mellitus ELENO Robins Onse t: 11/23/2023 Chronic kidney disease stage 4 Tonia Robins Onset: 11/23/2023 CVA - cerebrovascular accide nt due to cerebral artery occlusion ELENO Robins Onset: 11/23/2023 Myocardial infarction ELENO Robins Onset: 11/23/2023 Obstructive sleep apnea syndrome ELENO Robins Onset: 11/23/2023 Social History Type Date Description Comments Sex Female Sex Unknown ETOH Use Denies alcohol use Tobacco Use Start: Unknown End: Unknown Patient is a former smoker Allergies and adverse reactions Active Allergies Criticality Reaction Severity Comments Date Sulfamethoxazole Unable to assess criticality 11/23/2023 Baclofen Unable to assess criticality 11/23/2023 Medications Active Medications SIG Qnty Indications Order ing Provider Date Kkirsdexs68kt Tablets Take One Tablet By Mouth Every Morning ^1R1 90tabs Leann Staton M.D. 11/15/2024 Onetouch VerioStrips Use One Strip To Check Glucose 3 To 4 Times Daily (Bulk) 100units E11.22 Leann Staton M.D. 12/29/2023 Freestyle Jazmine 2/[place]/Flash Glucose Monitoring Pbhgkp6Zvyptg Device use as directed with sensors dx: e11.22 1units E11.22 Leann Staton M.D. 11/23/2023 Freestyle Jazmine 2/Sensor/Flash Glucose Monitoring Tzgzee6Vsbhzh [facility] Use 1 Sensor Every 14 Days as Directed (Bulk) 3units E11.22 Leann Staton M.D. 11/23/2023 Lantus ArroyoYpzaxuzq571Qvbt/ML Solution Pen-Inject Lazaro Suarez MD Montelukast Svmnuj18bx Tablets 1 by mouth every day 30tabs Tommie Suarez MD Trulicity4.5mg/0.5ML Solution Pen-Inject inject 4.5mg into skin every week 6ml Tommie Suarez MD Vitamin D (Ergocalciferol)1.25m g (47217 Ut) Capsules Tommie Suarez MD Atorvastatin Puljber72uw Tablets 1 by mouth every day 90tabs Tommie Suarez MD Aspirin Low Uuxd85wg Tablets DR 1 by mouth every day Tommie Suarez MD Albuterol Sulfate FWM948(90Base) mcg/Act Aerosol Tommie Suarez MD Uhqdjqucvm662wg Capsules 1 capsule by twice daily 180caps Tommie Suarez MD Fyxyefpnqx8be Tablets 1 tab by mouth twice a day Tommie Suarez MD Pantoprazole Ridllo93mo Tablets DR 1 by mouth every day 90tabs Tommie Suarez MD Novolog Kpnwjfc057Msqp/ML Solution Pen-Inject Lazaro Suarez MD Vital Signs [...] 190 Procedures Date Code Description Status 02/13/2025 95543 Glucose Monitoring Interpeta tion And Report Completed 11/15/2024 85376 Glucose Monitoring Interpeta tion And Report Completed 08/01/2024 53787 Glucose Monitoring Interpeta tion And Report Completed Medical Devices Description No Information Available Encounters Type Date Location Provider Dx Diagnosis Office Visit 02/13/2025 2:15p Main Office ELENO Robins 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 E11.42 Type 2 diabetes mila itus with diabetic polyneuropathy 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 D63.1 Anemia in chronic ki dney disease Assessments Date Code Description Provider 02/13/2025 E11.22 Type 2 diabetes mellitus with diabetic chronic kidney disease ELENO Robins 02/13/2025 E11.42 Type 2 diabetes mellitus with diabetic polyneuropathy ELENO Robins 02/13/2025 Z79.4 alf (current) use of i nsulin ELENO Robins 02/13/2025 D63.1 Anemia in chronic kidney dis ease ELENO Robins Plan of Treatment Future Appointment(s):* 05/16/2025 1:15 pm - Marilin Freeman CNP at Main Office 11/15/2024 - ELENO Robins* E11.22 Type 2 diabetes mellitus with diabetic chronic kidney disease * E11.42 Type 2 diabetes mellitus with diabetic polyneuropathy * 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
--- OUTSIDE RECORDS SUMMARY | 2025-04-17 14:19 | XMS_ITS | Clinical Summary ---
Author Organization [facility] Address [address] [facility] [address] [place] [address] Phone Care Team Providers Care Station Worker Name Role Phone Tommie Suarez MD Primary [...] 1 Active ergocalciferol (VITAMIN D2) 1.25 MG (94890 UT) capsule @@TAKE 1 CAPSULE BY MOUTH [...] 10,000 UnitsIndications:Anemi a in chronic kidney disease 13286 Units IJ Weekly 11/12/2020 Active ferumoxytol (FERAHEME) injection 510 mgIndications:Other iron deficiency anemia 510 mg IV Once in dialysis 07/05/2021 Active Epoetin Sally-epbx solution 40,000 UnitsIndications:Anemi a in chronic kidney disease,Chronic kidney disease stage 4 (HCC),Hypertensive renal disease 37757 Units IJ Every 7 days 07/15/2021 Active epoetin sally (EPOGEN,PROCRIT) injection 10,000 UnitsIndications:Anemi a due to Renal Failure 30703 Units IV Every 14 days 09/20/2022 Active [...] 06/01/2022 1:55 PM EDT Plan of Treatment Upcoming Encounters Date Type Department Care Team (Late st Contact Info) Description 05/21/2025 2:00 PM EDT Office Visit [facility] [address] [place] [address] Anthony Jay MD [address] [address] Health Maintenance Due Date Last Done Comments Breast Cancer Screening 1960 Pneumococcal Vaccine: 50+ Ye ars (1 of 2 - PCV) 1979 Colorectal Cancer Screening: Annual FOBT 2009 Colorectal Cancer Screening: Colonoscopy 2009 Colorectal Cancer Screening: Sigmoidoscopy 2009 Diabetes: Hemoglobin A1C 10/30/2020 04/30/2019 Diabetes: Ophthalmology Exam 10/30/2020 Diabetes: Pedal Pulse Checked 10/30/2020 Diabetes: Sensory Foot Exam 10/30/2020 Diabetes: Visual Foot Exam 10/30/2020 Influenza Vaccine (#1) 2025 Hepatitis B Vaccine Aged Out No longe r eligible based on patient's age to complete this topic Insurance ([id number]) [facility] ([id number]) Care Teams Station Worker Relationship Specialty Start Date End Date Tommie Suarez MD [address] [address] PCP - General 10/12/20
--- OUTSIDE RECORDS SUMMARY | 2025-04-17 14:19 | XMS_ITS | Patient Health Record ---
Author Organization [facility] Address [address] [facility] [address] [place] [address] Care Team Providers Care Adjunct Faculty Mathematics Department Name Role Phone Eli Dill Primary Care Provider Unavailab Salvatore Isaac Unavailable [phone] Kamala Liz Unavailable [phone] Allergies Allergen (clinical drug ingredient) Drug/Non Drug Allergy documented on EMR Reaction Allergy Type Onset Date Status baclofen Baclofen Unknown Drug Allergy Active Substance with sulfonamide structure and antibacterial mechanism of action (substance) Sulfa Antibiotics Unknown Drug Allergy Active Reason For Referral No Information Medications Medication SIG (Take, Route, Frequency, Duration) Notes Start Date End Date Status Iron Sucrose 20 MG/ML as directed Intravenous 09/01 Active Aspirin 81 MG 1 tablet Orally Once a day; Duration: 30 day(s) 09/17/2024 Active Montelukast Sodium 10 MG 1 tablet Orally Once a day; Duration: 30 day(s) 09/17/2024 Active Albuterol Sulfate 108 (90 Base) MCG/ACT 1 puff as needed Inhalation every 4 hrs 09/17/2024 Active Lantus 100 UNIT/ML as directed Subcutaneous 2023 Active Baqsimi One Pack 3 MG/DOSE as directed Nasally Active Pantoprazole Sodium 40 MG 1 tablet 1/2 t o 1 hour before morning meal Orally Once a day; Duration: 30 day(s) 09/17/2024 Active Atorvastatin Calcium 40 MG 1 tablet Oral ly Once a day; Duration: 30 day(s) 09/17/2024 Active NovoLOG FlexPen 100 UNIT/ML as directed Subcutaneous 09/17/2024 Act josie Carvedilol 25 MG 1 tablet with food O rally Twice a day; Duration: 30 day(s) 09/17/2024 Active Procrit 2000 UNIT/ML as directed Injection 024 Active buPROPion HCl ER (SR) 150 MG 1 tablet in the morning Orally Once a day; Duration: 30 day(s) 09/17/2024 Active Plavix 75 MG 1 tablet Orally Once a day; Duration: 30 day(s) 09/17/2024 Active Famotidine 40 MG 1 tablet Orally Once a day; Duration: 30 day(s) 09/17/2024 Active Vraylar 1.5 MG 1 capsule Orally Onc e a day; Duration: 30 day(s) 09/17/2024 Active Carvedilol 6.25 MG 1 tablet with food O rally Twice a day; Duration: 30 day(s) 09/17/2024 Active Trulicity 4.5 MG/0.5ML as directed Subcutaneous Active hydrALAZINE HCl 50 MG 1 tablet with food Orally Twice a day; Duration: 30 day(s) 09/17/2024 Active Gabapentin 100 MG 1 capsule at bedtime Orally Once a day; Duration: 30 day(s) 09/17/2024 Active Advair Diskus 250-50 MCG/ACT 1 puff Inhalation Twice a day 09/17/2024 Active Problems Problem Type SNOMED Code ICD Code Onset Dates Problem Status W/U Status Risk Notes Problem Foot ulcer due to type 2 diabetes mellitus (5929930238783) Type 2 diabetes mellitus with foot ulcer (E11.621) Active confirmed Problem Osteomyelitis of vertebra (479547614) Osteomyelitis of vertebra, lumbar region (M46.26) Active confirmed Problem 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) Active confirmed Problem 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 without evidence of necrosis (L97.516) Active confirmed Problem Peripheral vascular disease (283438261) Peripheral vascular disease (I73.9) Active confirmed Problem Neuropathy (812097571) Neuropathy (G62.9) Active confirmed Problem Chronic kidney disease (446925093) Chronic kidney disease (N18.9) Active confirmed Problem Asthma (409855577) Asthma (J45.909) Active conf irmed Problem Spinal stenosis (21750259) Spinal stenosis (M48.00) Active confirmed Problem Anemia (442150313) Anemia (D64.9) Active confir med Problem CVA - Cerebrovascular accident (622275546) CVA (cerebral vascular accident) (I63.9) Active confirmed Problem Osteoarthritis (205852603) Osteoarthritis (M19.90) Active confirmed Problem Type 2 diabetes mellitus (83894861) Type 2 diabetes mellitus (E11.9) Active confirmed Problem Myocardial infarction (84338834) Myocardial infarction (I21.9) Active confirmed Vital Signs Heart Rate 84 /min 03/04/2025 Temperature 98.8 degrees Fahrenheit 03/04/2025 Respiratory Rate 18 /min 03/04/2025 Height-cm 167.64 cm 03/04/2025 Oximetry 96 % 03/04/2025 Blood pressure diastolic 68 mm Hg 03/04/2025 Weight-kg 86.64 kg 03/04/2025 Height 66 in 03/04/2025 Blood pressure systolic 128 mm Hg 03/04/2025 Weight 191 lbs 03/04/2025 BMI 30.82 kg/m2 03/04/2025 Encounters Encounter Location Date Provider Diagnosis [address] [address] 09/19/2024 Sherylrolly Greenwoodsabina Type 2 diabetes mellitus with foot ulcer E11.621 ; 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 without evidence of necrosis L97.516 ; Osteomyelitis M86.9 ; Peripheral vascular disease I73.9 ; Neuropathy G62.9 and Anemia D64.9 [place] [address] [address] 09/26/2024 Kamala Liz Type 2 diabetes mellitus with foot ulcer E11.621 ; 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 without evidence of necrosis L97.516 ; Osteomyelitis M86.9 ; Peripheral vascular disease I73.9 ; Neuropathy G62.9 and Anemia D64.9 [place] [address] [address] 10/03/2024 Kamala Liz Type 2 diabetes mellitus with foot ulcer E11.621 ; 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 without evidence of necrosis L97.516 ; Osteomyelitis M86.9 ; Peripheral vascular disease I73.9 ; Neuropathy G62.9 and Anemia D64.9 [place] [address] [address] 03/04/2025 Anzmaritzaa Clar[place] Enlarged and hypertrophic nails Q84.5 ; Onycholysis L60.1 ; Peripheral vascular disease I73.9 ; Neuropathy G62.9 and Anemia D64.9 [facility] [address] [address] 03/07/2025 Anzhela Savonina [facility] [address] [address] 09/17/2024 Anzhela Savonina [facility] [address] [address] 02/26/2025 Anzhela Timoonina [facility] [address] [place] [address] 03/11/2025 Anzmaritzaa Claricea Assessments Encounter Date Diagnosis (ICD Code) Assessment Notes Treatment Notes Treatment Clinical Notes Section Notes 09/19/2024 Type 2 diabetes mellitus with foot ulcer (ICD-10 - E11.621) On exam, vital signs stable, afebrile, non-ill appearing. I removed the dressing and examined the wound located on the left 4th toe. Wound is covered with a moist callus with central deeper wound noted, no surrounding erythema, no purulence or signs of acute infection. I discussed the indication for debridement and she was agreeable to procedure. I removed the callused tissue and noted exposed loose bony fragment within the wound bed, slough and granulated tissue noted. Wound was cleaned with saline and Aquacel ag was applied to the wound bed, zinc to periwound secured with dsd. Natalie presents today for initial visit for treatment of left 4th toe diabetic ulcer is setting of DM2, osteomyelitis and PAD. She currently has no signs of acute infection. She will continue with Augmentin for the full course. She will be seeing her pcp for a follow up next week and vascular on 10/07. Begin dressing witwh Aquacel ag to the wound to be changed every other day. Discussed importance of tight glucose control, she is followed by endocrinology, will be seeing them in November. I discussed the importance of pressure relief, minimize ambulation. Monitor the wound closely for worsening infection. Will consider prolonging the antibiotics at the next visit. She will return in 1 week for a follow up visit. I spent 55 minutes of direct and indirect care of this patient reviewing records, gathering H&P, evaluation, formulating plan, education and documentation. I Salvatore BRAY, examined, evaluated and treated the patient. Dr. Holland Winters was available for any question or concerns that I may have had. 09/19/2024 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 without evidence of necrosis (ICD-10 - L97.516) 09/26/2024 Type 2 diabetes mellitus with foot ulcer (ICD-10 - E11.621) Vital signs are reviewed and are stable. She is afebrile. The toe ulcer is examined with the dressings removed. There is no localized redness or swelling of the fourth toe. Partial amputations of the first and second ray are seen. A small and stable escahr is seen atop the affected dorsal area. It is not tender, nor expressing. There is no periwound maceration. The DP pulse is palable. There is no edema about the right foot and ankle. It looks healed and is gently probed. Debridement is not attempted. Natalie is a 63 year old female with diabetes and history of toe amputations on the left foot with left fourth dorsal toe ulcer appearing healed. However, given high risk of worsening and reopening based on history, we have asked that she return in one week to ensure closure is complete. She will avoid provokative footwear and use skin prep daily. Adapted sneaker insert is working well. Good foot hygiene was also encouraged. She will try to keep her blood sugars down. She will see her vascular team in October as scheduled. With any swelling, redness or fever, she will call sooner or seek urgent care. IKamala PA-C, examined, evaluated and treated the patient under the supervision of Tl Winters MD, who is present in the office and guiding the management plan. I confirm that the care as initially planned and subsequently discussed with Dr. Winters is as described and documented. 10/03/2024 Type 2 diabetes mellitus with foot ulcer (ICD-10 - E11.621) Vital signs are reviewed and are stable. She remains afebrile. The fourth toe ulcer is examined with the dressings removed. There is no localized redness or swelling of the fourth toe. Partial amputations of the first and second ray are once again seen. The small and stable eschar atop the fourth toe is unchanged. It remains nontender and non-expressing. The DP pulse is faintly palpable. Healing is achieved satisfactorily about the fourth toe following completion of recent antibiotics. Natalie is a 63 year old female with diabetes and history of toe amputations on the left foot with left fourth dorsal toe ulcer which is now healed. Ongoing induration and scar is expected to continue with wound resolution. She will continue with modified footwear. She is scheduled to see [facility] vascular on October 07 and podiatry later today. She agrees to discuss nail care on her right foot with her podiatry team. She is discharged from wound care and can follow up as needed. Prompt return for any drainage or redness of healed fourth toe area in particular is encouraged. I, Kamala Liz PA-C, examined, evaluated and treated the patient under the supervision of Tl Winters MD, who is present in the office and guiding the management plan. I confirm that the care as initially planned and subsequently discussed with Dr. Winters is as described and documented. 03/04/2025 Enlarged and hypertrophic nails (ICD-10 - Q84.5) 10/03/2024 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 without evidence of necrosis (ICD-10 - L97.516) 09/19/2024 Osteomyelitis (ICD-10 - M86.9) 03/04/2025 Onycholysis (ICD-10 - L60.1) 09/26/2024 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 without evidence of necrosis (ICD-10 - L97.516) 09/19/2024 Peripheral vascular disease (ICD-10 - I73.9) 10/03/2024 Osteomyelitis (ICD-10 - M86.9) 09/26/2024 Osteomyelitis (ICD-10 - M86.9) 03/04/2025 Peripheral vascular disease (ICD-10 - I73.9) 03/04/2025 Neuropathy (ICD-10 - G62.9) 10/03/2024 Peripheral vascular disease (ICD-10 - I73.9) 09/19/2024 Neuropathy (ICD-10 - G62.9) 09/26/2024 Peripheral vascular disease (ICD-10 - I73.9) 09/26/2024 Neuropathy (ICD-10 - G62.9) 09/19/2024 Anemia (ICD-10 - D64.9) 10/03/2024 Neuropathy (ICD-10 - G62.9) 03/04/2025 Anemia (ICD-10 - D64.9) 10/03/2024 Anemia (ICD-10 - D64.9) 09/26/2024 Anemia (ICD-10 - D64.9) 03/04/2025 Other On exam, vital signs stable, afebrile, non-ill appearing. I examined the right hallux noting a hypertrophic nail seperating from the nail bed. There is moist malodorous tissue under the nailbed. There is no purulence, no surrounding erythema, no warmth, no swelling. There is no indication for debridement. I cleaned the area with saline and obtained a wound culture. There are no acute signs of infection today, therefore will defer antibiotics unless wound cultures indicate. I advised to DC the Neosporin and recommend applying Betadine daily to the nailbed. I recommended that she makes an appointment with podiatry for nailcare. She is agreeable to plan. She does not need any further follow up as this is a podiatry issue. I spent 30 minutes of direct and indirect care of this patient reviewing records, gathering H&P, evaluation, formulating plan, education and documentation. I Salvatore CINTRON-Lana, examined, evaluated and treated the patient. Dr. Holland Winters was available for any question or concerns that I may have had. Plan Of Treatment No Information Insurance Providers Payer Name Payer Address Payer Phone Subscriber Number Group Number Insured Name Patient Relationship to Insured Coverage Start Date Coverage End Date [facility] [address] [address] [place], [place] [id number] Natalie Cutler Self - patient is the insured 0 Medical (General) History Medical History History ICD Code Chronic kidney disease N18.9 Bowel incontinence R15.9 Osteoarthritis M19.90 CVA (cerebral vascular accident) I63.9 Myocardial infarction I21.9 Pressure ulcer of coccygeal region L89.1 59 Asthma J45.909 Anemia D64.9 Depression F32.A Type 2 diabetes mellitus E11.9 Neuropathy G62.9 Spinal stenosis M48.00 Osteomyelitis of vertebra, lumbar region M46.26 Surgical History Surgery Date(Month/Year) breast reduction toe amputation X3
--- OUTSIDE RECORDS SUMMARY | 2025-04-17 14:19 | XMS_ITS | Data Portability ---
Author Organization [place] [facility] Address [address] [place] [address] Care Team Providers Care Elementary Art Teacher Name Role Phone KACIE GARCIA Primary Care Provider Assessment Encounter Date Assessment Date Assessment LastModified [...] None Plan/Discussion: Plans to transport herself to [facility]. Proper Personal Protective Equipment (PPE), including gloves, eye protection and masks were donned and doffed appropriately and all equipment cleaned using approved technique with germicidal disposable wipes prior to and after care of this patient according to [facility] protocols. Time On Scene with Patient: 03:00:09 [email or web address] Not available 12/22/2021 03:07:34 01/06/2022 01/06/2022 Overview/History :61 YO F new to provider but known to She is being seen today for left [...] trauma Neuro: No focal deficits, A&O x4, CN s II-XII grossly normal, equal strength BL, [...] for possible airway management -Pt going to [facility], expect called to ED and patient handed off to [facility] Pt and roomate is on agreement [...] pertinent in my medical decision making today. [email or web address] Not available 01/06/2022 14:03:17 Plan of Treatment [...] Recorded Time Breast reduction completed Amy tobias, PRINCIPAL TECHNICAL SPECIALIST [address], [place], [address], [place] [facility] 12/10/2021 16:07:36 amputation of toe completed Amy No via, PRINCIPAL TECHNICAL SPECIALIST [address], [place], [address], [place] [facility] 12/10/2021 16:07:46 abdominoplasty completed Amy Yoder , PRINCIPAL TECHNICAL SPECIALIST [address], [place], [address], [place] [facility] 12/10/2021 16:07:55 Imaging Results None recorded. Procedure Notes None recorded. Medical Equipment None Reported. Allergies Allergen ID Allergen Name Allergen Category Reaction Reaction Severity Criticality Documentation Date Start Date Code Code System Note Provider Name and Address Organization Details Recorded Time 441856 baclofen medicatio n Not available Not available Not available 12/10/2021 1292 RxNorm Amy Yoder, PRINCIPAL TECHNICAL SPECIALIST [address] [place], [address], [place] [facility] 15:58:42 [id number] Substance with sulfonami de structure and antibacte rial mechanism of action (substanc e) medicatio n Not available Not available Not available 01/06/2022 33864 8003 SNOMED ELENO Urena [address] [facility] [place], [address], [place] [facility] 13:01:26 Medications [...] Not Available Not Available Not Available FreeStyle Pike Lite kit active Not Available Not Available [...] Body temperature Respiratory rate Heart rate Systolic And Diastolic Provider Name and Address Organization Details Last Updated DateTime 2 99 % 99 % 98.2 [degF] 18 /min 82 /min 136/84 mm[Hg] Not Available [facility] 16:02:29 Date Recorded Heart rate Respiratory rate Oxygen saturation Oxygen saturation in Arterial blood by Pulse oximetry Body temperature Systolic And Diastolic Provider Name and Address Organization Details Last Updated DateTime 2 90 /min 16 /min 97 % 97 % 99.8 [degF] 162/66 mm[Hg] Not Available [facility] 13:04:31 Social History Question Answer Notes LastModified by Organizat ion Details LastModified Time Tobacco Smoking Status Former Smoker Amy Yoder NP [address], [place], [address], [place] [facility] 12/10/2021 16:07:13 Do You Have An Advance Directive? No Information not available 12/10/2021 Excessive Alcohol Or Drug Use No Information not available 12/10/2021 Does This Patient Have A PCP? Yes Information not available 12/10/2021 How Many Years Have You Smoked Tobacco? 16 Information not available 12/10/2021 Sex: Unknown Functional Status Question Answer Note LastModified by Organizat ion Details LastModified Time Do you use any illicit or recreational drugs? No Information not available 12/10/2021 Do you or have you ever used any other forms of tobacco or nicotine? No Information not available 12/10/2021 What is your level of alcohol consumption? None Information not available 12/10/2021 Mental Status None recorded. Family History Relationship Description Onset Age of this Age Resolved Age Notes LastModified by Organization Details LastModified Time Mother Heart disease [email or web address] Not available 2021 13:00:52 Maternal Aunt Malignant neoplastic disease [email or web address] Not available 2021 13:01:08 Medical History Condition Response Diabetes Y Coronary Artery Disease Y CHF Y High Cholesterol Y Stroke Y Hypertension Y Depression Y Asthma Y Gynecological HistoryNo gynecological history recorded. Obstetrics History GPAL:G 0 P 0 0 0 0 Past Encounters Encounter ID Performer Location Encounter Start Date Encounter Closed Date Diagnosis/Indication Diagnosis SNOMED-CT Code Diagnosis ICD10 Code Diagnosis Note [id number] Amy Yoder NP [facility] [address] [place] [address] 12/10/2021 15:57:24 01/10/2022 18:29:44 [id number] ELENO Rosario [facility] [address] [place] [address] 01/06/2022 12:06:10 01/07/2022 11:10:14 Abscess of skin and/or subcutaneous tissue 13772858 L02.91 dental abscess w/ some suspected airway involvemen t. also pt getting to point where she cannot eat. waranting escaltion at this time. see above Health Concerns Section Related Observation LastModified by Organization Detai ls LastModified Time None Recorded Concern Status LastModified by Organization Details LastModified Time None Recorded Advance Directives Directive N: Payers Insurance Date Sequence Insurance Name Policy Number Policy Conde Covered Member ID Conde Member ID Guarantor Name 01/10/2022 2 [place] [facility] Natalie Cutler [id number] Natalie Cutler 01/10/2022 1 *SELF PAY* Natalie Cutler [id number] Natalie Cutler 01/10/[address] [facility] - DOS PRIOR TO 2022 - DUAL ELIGIBLE (MEDICARE REPLACEMENT/AD VANTAGE - HMO) Natalie Cutler [id number] Natalie Cutler 01/10/[address] [facility] - DOS PRIOR TO 2022 - DUAL ELIGIBLE (MEDICARE REPLACEMENT/AD VANTAGE - HMO) Natalie Cutler [id number] Natalie Cutler 01/10/2022 1 [place] B-[place]: [facility] Natalie Cutler [id number] Natalie Cutler 01/10/[address] [facility] - DOS PRIOR TO 2022 - MEDICARE [place]ANTAGE [place] (MEDICARE REPLACEMENT/AD VANTAGE - PPO) Natalie Cutler [id number] Natalie Cutler 01/10/[address] [facility] - DOS PRIOR TO 2022 - DUAL ELIGIBLE (MEDICARE REPLACEMENT/AD VANTAGE - HMO) Natalie Cutler [id number] Natalie Cutler Notes Date Note Type Note [...] f/u with an ENT. Amy Yoder NP [facility] [address], [place], [address], [place] [facility] 01/08/2022 17:51:27 01/06/2022 text/html 61 YO F new to provider [facility] [...] is warm. ELENO Jarrell [address], [place], [address], [place] [facility] 01/06/2022 14:04:29 OBGyn Episode No OBEpisode recorded.
--- OUTSIDE RECORDS SUMMARY | 2025-04-17 14:19 | XMS_ITS | Clinical Summary ---
Author Organization [facility] Address [address] [place] [address] Care Team Providers Care Leather Etcher Name Role Phone [facility] Unavailable [phone] Ralph Wilcox MD Unavailable [phone] Otilia Paulson OD Unavailable [phone] Roselia Abernathy MD Unavailable [phone] Allergies Active Allergy Reactions Criticality Noted Date [...] polyneuropathy, with long-term current use of insulin ([facility]) Use to check FSBG 2 X daily. 200 lancet 019 Active lidocaine (XYLOCAINE) 4 % external solutionIndications:Farida betic polyneuropathy associated with type 2 diabetes mellitus ([facility]) Apply topically 4 (four) times a day as needed for mild pain. Do not apply more than 4 times daily. 50 mL 019 Active magnesium oxide 400 (241.3 Mg) MG Tab tabletIndications:Hypom agnesemia Take 1 tablet (400 mg total) by mouth daily. 90 tablet Active Insulin Pen Needle 32G X 4 MM MiscIndications:Type II or unspecified type diabetes mellitus with neurological manifestations, uncontrolled(250.62) ([facility]) Once nightly injection 120 pen needle 11 019 Active ACCU-CHEK ABNER PLUS stripIndications:Type II or unspecified type diabetes mellitus with neurological manifestations, uncontrolled(250.62) ([facility]) 4 times daily. 120 test strip 11 Active Continuous Blood Gluc Shrimp Peeling Machine Operator (FREESTYLE EMILE 14 DAY READER) DeviceIndications:Type II or unspecified type diabetes mellitus with neurological manifestations, uncontrolled(250.62) ([facility]) Apply 1 Device topically continuous. 1 Device 019 Active glucose blood (ACCU-CHEK ABNER PLUS) test stripIndications:Contro lled type 2 diabetes mellitus with diabetic polyneuropathy, with long-term current use of insulin ([facility]) TEST TWICE DAILY 200 test strip Active polyethylene glycol-electrolytes (NuLYTELY, TRILYTE) 420 g solution MIX AND DRINK UTD 0 019 Active Insulin Syringe-Needle U-100 (INSULIN SYRINGE 1CC/31GX5/16 ) 31G X 5/16 1 ML Misc U WITH EPOGEN Q 14 DAYS 1 019 Active SUPPLY DME MISCIndications:Stage 2 skin ulcer of sacral region ([facility]) Pressure relieving cushion 1 supply 019 Active Continuous Blood Gluc Sensor (FREESTYLE EMILE 14 DAY SENSOR) MiscIndications:Type II or unspecified type diabetes mellitus with neurological manifestations, uncontrolled(250.62) ([facility]) Apply 1 Device topically continuous. Apply new [...] pen 3 019 Active epoetin sally (EPOGEN,PROCRIT) 87133 UNIT/ML injectionIndications:An emia, chronic renal failure, stage 4 (severe) ([facility]) Inject 2 mL (20,000 Units total) under the skin every 14 days (2 weeks). 14 mL 1 019 Active SYRINGE-NEEDLE, DISP, 3 ML (B-D 3CC LUER-LUCRETIA SYR 25GX1/2 ) 25G X 1-/2 3 ML MiscIndications:Anemia, chronic renal failure, stage 4 (severe) ([facility]) Please use to inject Procrit Q 14 [...] type diabetes mellitus with neurological manifestations, uncontrolled(250.62) ([facility]) INJECT SUBCUTANEOUSLY 20 UNITS DAILY 10 pen 3 019 Active dulaglutide (TRULICITY) 0.75 MG/0.5ML subcutaneous injectionIndications:Co ntrolled type 2 diabetes mellitus with diabetic polyneuropathy, with long-term current use of insulin ([facility]) Inject 0.5 mL (0.75 mg total) under the skin once a week. 4 pen 3 019 Active carvedilol (COREG) 6.25 MG tabletIndications:Essen tial hypertension TAKE 2 TABLETS(12.5 MG) BY MOUTH TWICE DAILY WITH MEALS 360 tablet 020 Active DULoxetine (CYMBALTA) 60 MG capsuleIndications:Diab etic polyneuropathy associated with type 2 diabetes mellitus ([facility]) Take 1 capsule (60 mg total) by [...] 60 mg daily. She is leaving for [place] next week, will be gone for 1 month. She will follow-up with me when she returns. Assessment & Plan (05/01/2019 3:41 PM EDT): Neurology recommended a trial of Cymbalta. Tapering instructions given for Zoloft. After tapered start Cymbalta 30 mg daily. She is leaving for [place] on 05/21 for 1 month, follow-up prior [...] was seeing one when she lived in [place]. She states that she had an EMG [...] function. She uses the pain medication sparingly. STEAMING CABINET TENDER reviewed. She is willing to try Tramadol instead of Percocet. Follow up in 1 month. Shortness of breath 08/15/2018 Assessment & Plan (08/15/2018 6:10 PM EST): Shortness of breath specifically after eating. Order placed for a barium swallow to screen for a hiatal hernia. retirement prescription opiate use 08/15/2018 Moderate persistent asthma [...] she has an upcoming appointment with the operations intelligence. Repeat A1c due in January. Assessment & [...] & Plan (04/18/2019 7:31 AM EDT): Her systems coordinator ordered repeat blood work, await these results. 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 Assessment & Plan (02/20/2019 3:32 PM EDT): Her systems coordinator ordered repeat labs, anemia noted to be worse. He is increasing her Epogen. She has follow-up with him in April. Assessment & Plan (12/24/2018 1:27 PM EDT): Followed by nephrology, had recent labs. Epogen dosing was increased. She has follow-up at the end of December. Assessment & Plan (09/13/2018 12:49 PM EST): Patient had blood work done that was ordered by her systems coordinator. Noted to be iron deficient, she will start 325 mg of ferrous sulfate daily. Assessment & Plan (08/15/2018 6:09 PM EST): Check iron panel, if this is normal I will start Epogen. Her systems coordinator is in agreement. Vitamin D deficiency 06/26/2017 [...] her iron levels. I also spoke with [facility] and she has an appointment with [...] time. She is due to see her importer or exporter in September. Resolved Problems Problem Noted Date Diagnosed Date Resolved Date Stage 2 skin ulcer of sacral region 04/18/2019 06/14/2019 Assessment & Plan (05/01/2019 3:41 PM EDT): Much improved, almost completely healed. Continue with topical zinc daily. Assessment & Plan (04/18/2019 7:30 AM EDT): Prescription for pressure relieving pad given to patient. Also recommend applying [id number] zinc oxide twice daily. Follow-up in 2 [...] 78 08/02/2019 2:47 PM EDT Temperature 36.8 C (98.3 F) 07/19/2019 11:01 AM EDT Respiratory Rate 18 07/19/2019 11:01 AM EDT [...] 21-65) 05/02/2021 05/02/2018 COVID-19 Vaccine ( - 2023-25 season) 2024 Influenza Vaccine 05/02/2025 [...] AM EDT Breast screening THINPREP PAP TEST (FURNITURE REMOVALIST) WITH HPV REFLEX Routine 05/02/2018 12:00 AM [...] Desirable range <100 mg/dL for primary prevention; <70 mg/dL for patients with CHD or diabetic patients with > or = 2 CHD risk factors. LDL-C is now calculated using the Deya calculation, which is a validated novel method providing better accuracy than the Friedewald equation in the estimation of LDL-C. Mumtaz SS et al. MILAN. 2013;310(72): 4005-7207 (http://education.iVillage/faq/TTZ214) Cholesterol/HDL Ratio 2.0 <5.0 (calc) [facility] Non HDL Chol. (LDL+VLDL) 42 <130 mg/dL (calc) [facility] Comment: For patients with diabetes plus 1 major ASCVD risk factor, treating to a non-HDL-C goal of <100 mg/dL (LDL-C of <70 mg/dL) is considered a therapeutic option. Blood specimen (specimen) 07/09/2019 10:45 AM EDT 07/09/2019 10:45 AM EDT Narrative [facility] - 07/10/2019 12:49 AM EDT FASTING:YES FASTING: YES Resulting Agency Comment Performing Organization Information: Site ID: [id number] Name: [facility] Address: [address] [place] [id number] Director: Shawn Goel MD Brenda Tony MD LAB BLOOD ORDERABLES Final R esult [facility] [address] [place] [address] [phone] * (ABNORMAL) POCT Glycosylated Hemoglobin (Hb A1C) (04/30/2019 8:51 AM EDT) Hemoglobin A1C 7.6(A) 4.0 - 6.0 % Lot Number 1 Search Developer Pass Pass Blood specimen (specimen) 04/30/2019 8:51 AM EDT Albaro Kellogg MD POINT OF CARE TEST ORDERABLES Fi nal Result * (ABNORMAL) Basic Metabolic Panel (04/22/2019 1:11 PM EDT) Glucose 331(H) 65 - 99 mg/dL [facility] Comment: Fasting reference interval For someone without known [...] approximately 13% higher for people identified as -Solomon Islander. eGFR Non- 26(L) > OR = 60 [...] Narrative Resulting Agency Comment Performing Organization Information: Site ID: [id number] Name: [facility] Address: [address] [place] [phone] Director: Shawn Goel MD us Gurjit Baum MD LAB BLOOD ORDERABLES Final Resu lt [facility] [address] [place] [address] * OPHTHALMOLOGY TESTING PROCEDURES (04/02/2019) us External Provider HX AMB PROCEDURES Final Res ult * HX GASTROENTEROLOGY COLONOSCOPY-SCAN (12/10/2018) Gayatri George PCA HX AMB PROCEDURES Final Re sult * MM Breast tomosynthesis screening-Bilateral (06/12/2018 9:04 AM EDT) Anatomical Region Laterality Modality Breast Bilateral Mammography 06/12/2018 9:16 AM EDT Impressions 06/12/2018 9:18 AM EDT No mammographic evidence of malignancy. In the absence of clinical findings, next routine screening mammogram would be recommended in one year. BI-RADS 2: BENIGN. nd Narrative 06/12/2018 9:18 AM EDT MM MAMMO SCREENING W/ TOMOSYNTHESIS BILATERAL: 06/12/2018 8:43 AM MAMMOGRAPHY WITH STANDARD DIGITAL VIEWS AND TOMOSYNTHESIS. TECHNIQUE: Digital views were obtained. Digital breast tomosynthesis was also performed. Computer aided detection performed. CLINICAL HISTORY: Screening. Breast screening COMPARISON: None. This is a new baseline exam. FINDINGS: There are scattered areas of fibroglandular density. No suspicious mass, suspicious architectural distortion, or suspicious calcium. Benign findings. Roselia Abernathy MD IMG MAMMOGRAPHY ORDERABLE S Final Result * ThinPrep Pap Test (Button Maker And Installer) with HPV Reflex (05/02/2018 12:00 AM EDT) [...] has been evaluated with computer assisted technology. Blood Bank Laboratory Professional: [facility] Comment: [place], [place](ASCP) CT screening location: [place] [address] Comment [facility] Comment: EXPLANATORY NOTE: [...] Narrative Resulting Agency Comment Performing Organization Information: Site ID: [id number] Name: [facility] Address: [address] [place] [address], [place] [address] Director: Shawn Goel MD us Roselia Abernathy MD LAB AMB PATH/CYTO ORDERAB LES Final Result Performing Organization Address City/[facility]/ZIP Co de Phone Number [facility] [address] [place] [address], [place] [address] * HIV 1/2 Ag/Ab CMIA Reflex to Confirmation (06/13/2017 9:51 AM EDT) [facility] HIV 1/2 Ag/Ab CMIA Negative Negative HOSPITAL LAB Comment: Results show no evidence of infection by HIV 1/2. If clinically indicated, repeat CMIA or test by nucleic acid amplification. Performed at [facility], [place], [place] License [address]385 [place] [id number] Blood specimen (specimen) 06/13/2017 9:51 AM EDT 06/13/2017 1:00 PM EDT us Alison Aguirre APRN LAB BLOOD ORDERABLES Lisa l Result HOSPITAL LAB from Last 3 Months or Most Recently Relevant to Health Maintenance Insurance [facility] [employer] MGD MEDICARE [facility] Advance Directives * Full Code (Latest Code Status on File) Date Activated Date Inactivated Comments 01/07/2019 10:11 AM * Full Code Date Activated Date Inactivated Comments 12/26/2017 3:41 PM 02/06/2018 1:44 PM Question Answer Comments Decision Thoroughly Discussed with: Patient Care Teams Leather Etcher Relationship Specialty Start Date End Date Aging, [facility] 02/04/20 Ralph Wilcox MD [address] [address] Gastroenterology 11/25/20 [place] [address] [place] [address] Consulting Provider Optometry 11/25/20 Roselia Abernathy MD [address] [place] [address] Obstetrics and Gynecology 11/25/20
--- OUTSIDE RECORDS SUMMARY | 2025-04-17 14:19 | XMS_ITS | Patient Health Record ---
Author Organization [facility] Address [address] [facility] [address] [place] [address] Care Team Providers Care Printer Apprentice Name Role Phone RADHA KACIE Primary Care Provider Unavailab BRANDYN Jones Unavailable [phone] Allergies Allergen (clinical drug ingredient) Drug/Non Drug [...] needed Inhalation qid Active Ergocalciferol 1.25 MG (69935 UT) 1 capsule Orally once a month [...] W/U Status Risk Notes Problem Essential hypertension (91880253) Essential (primary) hypertension (I10) Active confirmed Problem Disorder due to type 2 diabetes mellitus (815004798) Type 2 diabetes mellitus with unspecified complications (E11.8) Active confirmed Problem Recurrent major depression (44274895) Major depressive disorder, recurrent, unspecified (F33.9) Active confirmed Problem Obstructive sleep apnea syndrome (disorder) (62363893) Obstructive sleep apnea (adult) (pediatric) (G47.33) Active confirmed Problem Chronic pain syndrome (216579387) Chronic pain syndrome (G89.4) Active confirmed Problem Heart failure (28659745) Heart failure, unspecified (I50.9) Active confirmed Problem Uncomplicated asthma (disorder) (218708135) Unspecified asthma, uncomplicated (J45.909) Active confirmed Problem Gastro-esophageal reflux disease without esophagitis (967815090) Gastro-esophageal reflux disease without esophagitis (K21.9) Active confirmed Problem Chronic kidney disease (235426999) Chronic kidney disease, unspecified (N18.9) Active confirmed Plan Of Treatment Pending Test Test Name Order Date ANTI-HEPATITIS C 12/07/2020 HEP. B SURF. AG 12/07/2020 SYPHILIS TESTING 12/07/2020 HIV AB-AG 4TH GENERATION 12/07/2020 MM Digital Screening Mammogram 3D 2020 Insurance Providers Payer Name Payer Address Payer Phone Subscriber Number Group Number Insured Name Patient Relationship to Insured Coverage Start Date Coverage End Date [facility] [address] [address] [place] [address] [id number] VIET BLAKE Self - patient is the [...] Amputation Hospitalization History Reason Date(Month/Year) CHF & [place] 2020
--- OUTSIDE RECORDS SUMMARY | 2025-04-17 14:20 | XMS_ITS ---
Author Name [facility] Unknown History of Medication Use Medication Directions Dispensed Refills Start Date End Date Stat us DULoxetine (CYMBALTA) 60 MG capsule Take 1 capsule (60 mg total) by mouth daily. 10/17/2019 active fluticasone-salmetero l (ADVAIR DISKUS) 250-50 mcg/inh diskus inhaler Inhale 1 puff 2 (two) times a day. 07/12/2019 active meclizine (ANTIVERT) 12.5 MG tablet Take 1 tablet (12.5 mg total) by mouth 3 (three) times a day as needed for dizziness. 05/17/2019 active amLODIPine (NORVASC) 10 MG tablet Take 1 tablet (10 mg total) by mouth daily. 05/01/2019 active lisinopril (PRINIVIL,ZeSTRIL) 40 MG tablet Take 1 tablet (40 mg total) by mouth daily. 05/01/2019 active montelukast (SINGULAIR) 10 MG tablet Take 1 tablet (10 mg total) by mouth nightly. 05/01/2019 active oxyCODONE-acetaminoph en (PERCOCET) 5-325 mg per tablet Take 1 tablet by mouth 2 (two) times a day as needed for severe pain. Max Daily Amount: 2 tablets 05/01/2019 active Continuous Blood Gluc Sensor (FREESTYLE EMILE 14 DAY SENSOR) Mis Apply 1 Device topically continuous. Apply new sensor every 14 days 03/26/2019 active magnesium oxide 400 (241.3 Mg) MG Tab tablet Take 1 tablet (400 mg total) by mouth daily. 02/15/2019 active albuterol (PROVENTIL HFA; VENTOLIN HFA) 108 (90 Base) MCG/ACT inhaler Inhale 2 puffs 4 times daily (every 6 hours) as needed for wheezing. active aspirin enteric coated (ECOTRIN LOW STRENGTH) 81 MG EC tablet Take 81 mg by mouth daily. active furosemide (LASIX) 40 MG tablet Take 40 mg by mouth daily. active Allergies Allergen Reaction Severity Comment Documented Date Source Statu s BACLOFEN OTHER (SEE COMMENTS) Aphasia 02/18/2019 [facility] active SULFA ANTIBIOTICS SWELLING 06/12/2017 [facility] ac tive Problems Problem Status Onset Date Problem Type Date of Resoluti on Source Acute pain of right shoulder active 2018-07-19 ProblemAct [facility] Pure hypercholesterolemia active 2018-08-15 ProblemAct [facility] CKD stage 3 due to type 2 diabetes mellitus active 2018-09-10 ProblemAct [facility] Shortness of breath active 2018-08-15 ProblemAct [facility] Gastroesophageal reflux disease active 2018-09-13 ProblemAct [facility] Trigger ring finger of right hand active 2018-07-19 ProblemAct [facility] Arthritis active 2018-08-15 ProblemAct [facility] Moderate persistent asthma active 2018-07-19 ProblemAct [facility] Osteomyelitis of toe of left foot active 2017-12-26 ProblemAct [facility] Essential hypertension active 2017-06-13 ProblemAct [facility] Fecal incontinence active 2017-10-25 ProblemAct [facility] Anemia due to chronic kidney disease active 2017-07-18 ProblemAct [facility] Depression active 2018-12-24 ProblemAct [facility] snf prescription opiat e use active 2018-08-15 ProblemAct [facility] 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 active 2017-11-10 ProblemAct [facility] Anemia active 2017-06-26 ProblemAct [facility] Rigidity (muscles) active 2019-01-07 ProblemAct [facility] Speech disturbance active 2019-01-07 ProblemAct [facility] Diabetic polyneuropathy associated with type 2 diabetes mellitus active 2018-11-23 ProblemAct [facility] Vitamin D deficiency active 2017-06-26 ProblemAct [facility] Weakness active 2018-12-24 ProblemAct [facility] Abnormal iron saturation active 2017-06-26 ProblemAct [facility] Uncontrolled type 2 diabetes mellitus with peripheral neuropathy active 2017-11-10 ProblemAct [facility] Encounters Encounter Type Encounter Reason Primary Diagnosis Location Date Ambulatory [facility] 01/10/2022 Care Team Organization Name Specialty Phone Email Start Date End Da te VM Discovery 01/10/2022 05/20/2024 VM Discovery 01/10/2022 01/10/2022 [facility] ERWIN MUJICA Primary Care 10/02/20172017 [facility] Care 10/02/2017 10/19/2017
--- OUTSIDE RECORDS SUMMARY | 2025-04-17 14:20 | XMS_ITS | Clinical Summary ---
Author Organization [address] [facility] Address [address] [place] [address] Phone Care Team Providers Care Channel Account Manager Name Role Phone Eli Dill Primary Care [...] Encounters Date Type Department Care Team Description 03/03/2025 11:27 AM EDT - 03/03/2025 11:59 PM EDT Hospital Encounter [facility] [address] [place] [address] Corina Muse MD Swanson, Mona, CRNA Freeman, Indiana Chapman MD History of colon polyps; Gastroesophageal reflux disease, unspecified whether esophagitis present Discharge Disposition: Home or Self Care 03/03/2025 Telephone Gastroenterology - [address] [facility] [address] [facility] [address] [place] [address] Corina Muse MD 02/05/2025 Telephone Gastroenterology - [place] [address] [facility] [address] [facility] [address] [place] [address] Brigette Contreras LPN Anticoagulation (Colonoscopy and EGD on 03/03/[address] Muse) from Last 3 Months Surgical History Surgery Date Site/Laterality Comments BYPASS GRAFT PROCEDURE: PA AMPUTATION TOE METATARSOPHALANGEAL JOINT; COMMENT: x3 OTHER [...] 03/31/2019 non bleeding small bowel [facility] [place] [facility] Medical History Medical History Date Comments Asthma DX:Asthma Diastolic CHF (CMS/HCC V24, CMS/HCC V28) DX:Diastolic CHF (HCC) HTN (hypertension) DX:HTN (hyper tension) HLD (hyperlipidemia) DX:HLD (hyp erlipidemia) Diabetes mellitus (CMS/HCC V 24, [facility] V28) DX:Diabetes mellitus ([facility]) Diabetic neuropathy ([facility] V24, [facility] V28) DX:Diabetic neuropathy ([facility]) CKD (chronic kidney disease) , stage IV ([facility] V24, [facility] V28) DX:CKD (chronic kidney dise ase), stage IV ([facility]); COMMENT: baseline [...] DX:Anemia T2DM (type 2 diabetes mellit us) ([facility] V24, [facility] V28) DX:T2DM (type 2 diabetes me llitus) ([facility]) Acute kidney injury superimp osed on chronic kidney disease ([facility] V24) DX:Acute kidney i njury superimposed on chronic kidney disease ([facility]) JOHN (obstructive sleep apnea) DX :JOHN (obstructive sleep apnea) DVT prophylaxis DX:DVT prophylax is Severe anemia DX:Severe anemia COPD (chronic obstructive pu lmonary disease) ([facility] V24, [facility] V28) DX:COPD (chronic o bstructive pulmonary disease) ([facility]); COMMENT: not oxygen dependent Family History Medical History Relation Name Comments Diabetes Mother Heart failure Mother of [place] in her 70s Hypertension Mother Relation Name [...] 12/30/2024 1:09 PM EDT Plan of Treatment Health Maintenance Due Date Last Done Comments Diabetes: Annual Foot Exam 1970 Diabetes: Annual Retina Eye Exam 1970 DTaP,Tdap,and Td Vaccines (1 - Tdap) 1979 Pneumococcal Vaccine: 50+ Years (1 of 2 - PCV) 1979 Zoster Vaccines (1 of 2) 1979 Cervical Cancer Screening: Pap Smear 1981 Diabetes: Annual GFR (Glomerular Filtration Rate) 04/22/2020 [...] Test (HGBA1C) 09/14/2022 04/30/2019 Influenza Vaccine (#1) 2025 Colorectal Cancer Screening: Colonoscopy 12/16/2034 12/16/2024 [...] 2:32 PM EDT from Last 3 Months or Most Recently Relevant to Health Maintenance Results * COLONOSCOPY (12/16/2024 2:32 PM EDT) Anatomical Region Laterality Modality Endoscopy us Historical Provider GI~PROCEDURE ORDERABLES F inal Result from Last 3 Months or Most Recently Relevant to Health Maintenance Insurance MEDICARE Member Subscriber Plan / Payer (Ef fective 2020-Present) Name:Natalie Cutler Relation to Subscriber:Self Name:Natalie Cutler Payer ID:[id number] Group ID:[id number] Type:Not on file Address: [place] [address] [address] [phone] Advance Directives Documents on File Type Date Recorded Patient Assistant Produce Manager Expl anation Health Care Decision (hx) 01/16/2022 [...] (hx) 07/24/2021 AD OLIVIER DIRECTIVE Care Teams Channel Account Manager Relationship Specialty [place] [address] [place] [phone] PCP - General Cardiology 12/09/24
== END 2025-04-17 14:43 | disposition home or self-care (01) ==
LOC: HO.HKAS 13:40
PROVIDERS: PCP Family Medicine; Visit Provider Internal Medicine Nephrology
DX: I12.9 Hypertensive chronic kidney disease with stage 1 through stage 4 chronic kidney disease, or unspecified chronic kidney disease (principal); N25.81 Secondary hyperparathyroidism of renal origin; E11.22 Type 2 diabetes mellitus with diabetic chronic kidney disease; N18.4 Chronic kidney disease, stage 4 (severe); Z79.4 Long term (current) use of insulin; D63.1 Anemia in chronic kidney disease; N17.9 Acute kidney failure, unspecified
CPT/HCPCS: 99214

== ENCOUNTER → 2025-04-17 13:39 | Outpatient (BNVA) | payer OTHER, SELFPAY | PROVIDERS: PCP Family Medicine; Visit Provider Internal Medicine Nephrology | DX: E11.22 Type 2 diabetes mellitus with diabetic chronic kidney disease (principal); I12.9 Hypertensive chronic kidney disease with stage 1 through stage 4 chronic kidney disease, or unspecified chronic kidney disease; N18.4 Chronic kidney disease, stage 4 (severe); N25.81 Secondary hyperparathyroidism of renal origin; D63.1 Anemia in chronic kidney disease; Z79.4 Long term (current) use of insulin; N17.9 Acute kidney failure, unspecified | CPT/HCPCS: 96372; 99212; Q5106 ==

== ENCOUNTER 2025-05-01 15:18 | Outpatient (AMB) | payer OTHER, SELFPAY ==
--- OUTSIDE RECORDS SUMMARY | 2025-05-01 15:23 | XMS_ITS | Patient Health Record ---
Author Organization [facility] Address [address] [place] [address] Care Team Providers Care Supervisor Sewing Room Name Role Phone RADHAKACIE Primary Care Provider Unavailab BRANDYN Jones Unavailable [phone] Allergies Allergen (clinical drug ingredient) Drug/Non Drug [...] needed Inhalation qid Active Ergocalciferol 1.25 MG (88056 UT) 1 capsule Orally once a month [...] W/U Status Risk Notes Problem Essential hypertension (50048526) Essential (primary) hypertension (I10) Active confirmed Problem Disorder due to type 2 diabetes mellitus (600688350) Type 2 diabetes mellitus with unspecified complications (E11.8) Active confirmed Problem Recurrent major depression (26507510) Major depressive disorder, recurrent, unspecified (F33.9) Active confirmed Problem Obstructive sleep apnea syndrome (disorder) (58882390) Obstructive sleep apnea (adult) (pediatric) (G47.33) Active confirmed Problem Chronic pain syndrome (219561207) Chronic pain syndrome (G89.4) Active confirmed Problem Heart failure (38839904) Heart failure, unspecified (I50.9) Active confirmed Problem Uncomplicated asthma (disorder) (334198498) Unspecified asthma, uncomplicated (J45.909) Active confirmed Problem Gastro-esophageal reflux disease without esophagitis (183875920) Gastro-esophageal reflux disease without esophagitis (K21.9) Active confirmed Problem Chronic kidney disease (812937006) Chronic kidney disease, unspecified (N18.9) Active confirmed Plan Of Treatment Pending Test Test Name Order Date ANTI-HEPATITIS C 12/07/2020 HEP. B SURF. AG 12/07/2020 SYPHILIS TESTING 12/07/2020 HIV AB-AG 4TH GENERATION 12/07/2020 MM Digital Screening Mammogram 3D 2020 Insurance Providers Payer Name Payer Address Payer Phone Subscriber Number Group Number Insured Name Patient Relationship to Insured Coverage Start Date Coverage End Date [facility] [address] [address] [place] [phone] [id number] VIET BLAKE Self - patient is the [...] Amputation Hospitalization History Reason Date(Month/Year) CHF & [place] 2020
--- OUTSIDE RECORDS SUMMARY | 2025-05-01 15:23 | XMS_ITS | Clinical Summary ---
Author Organization [facility] Address [address] [place] [address] Care Team Providers Care Operations Officer Trust Department Name Role Phone [facility] Unavailable [phone] Ralph Wilcox MD Unavailable [phone] Otilia Paulson OD Unavailable [phone] Roselia Abernathy MD Unavailable [phone] Allergies Active Allergy Reactions Criticality Noted Date [...] polyneuropathy, with long-term current use of insulin ([facility]) Use to check FSBG 2 X daily. 200 lancet 019 Active lidocaine (XYLOCAINE) 4 % external solutionIndications:Farida betic polyneuropathy associated with type 2 diabetes mellitus ([facility]) Apply topically 4 (four) times a day as needed for mild pain. Do not apply more than 4 times daily. 50 mL 019 Active magnesium oxide 400 (241.3 Mg) MG Tab tabletIndications:Hypom agnesemia Take 1 tablet (400 mg total) by mouth daily. 90 tablet Active Insulin Pen Needle 32G X 4 MM MiscIndications:Type II or unspecified type diabetes mellitus with neurological manifestations, uncontrolled(250.62) ([facility]) Once nightly injection 120 pen needle 11 019 Active ACCU-CHEK ABNER PLUS stripIndications:Type II or unspecified type diabetes mellitus with neurological manifestations, uncontrolled(250.62) ([facility]) 4 times daily. 120 test strip 11 Active Continuous Blood Gluc Apprentice (FREESTYLE EMILE 14 DAY READER) DeviceIndications:Type II or unspecified type diabetes mellitus with neurological manifestations, uncontrolled(250.62) ([facility]) Apply 1 Device topically continuous. 1 Device 019 Active glucose blood (ACCU-CHEK ABNER PLUS) test stripIndications:Contro lled type 2 diabetes mellitus with diabetic polyneuropathy, with long-term current use of insulin ([facility]) TEST TWICE DAILY 200 test strip Active polyethylene glycol-electrolytes (NuLYTELY, TRILYTE) 420 g solution MIX AND DRINK UTD 0 019 Active Insulin Syringe-Needle U-100 (INSULIN SYRINGE 1CC/31GX5/16 ) 31G X 5/16 1 ML Misc U WITH EPOGEN Q 14 DAYS 1 019 Active SUPPLY DME MISCIndications:Stage 2 skin ulcer of sacral region ([facility]) Pressure relieving cushion 1 supply 019 Active Continuous Blood Gluc Sensor (FREESTYLE EMILE 14 DAY SENSOR) MiscIndications:Type II or unspecified type diabetes mellitus with neurological manifestations, uncontrolled(250.62) ([facility]) Apply 1 Device topically continuous. Apply new [...] pen 3 019 Active epoetin sally (EPOGEN,PROCRIT) 59470 UNIT/ML injectionIndications:An emia, chronic renal failure, stage 4 (severe) ([facility]) Inject 2 mL (20,000 Units total) under the skin every 14 days (2 weeks). 14 mL 1 019 Active SYRINGE-NEEDLE, DISP, 3 ML (B-D 3CC LUER-LUCRETIA SYR 25GX1/2 ) 25G X 1-/2 3 ML MiscIndications:Anemia, chronic renal failure, stage 4 (severe) ([facility]) Please use to inject Procrit Q 14 [...] type diabetes mellitus with neurological manifestations, uncontrolled(250.62) ([facility]) INJECT SUBCUTANEOUSLY 20 UNITS DAILY 10 pen 3 019 Active dulaglutide (TRULICITY) 0.75 MG/0.5ML subcutaneous injectionIndications:Co ntrolled type 2 diabetes mellitus with diabetic polyneuropathy, with long-term current use of insulin ([facility]) Inject 0.5 mL (0.75 mg total) under the skin once a week. 4 pen 3 019 Active carvedilol (COREG) 6.25 MG tabletIndications:Essen tial hypertension TAKE 2 TABLETS(12.5 MG) BY MOUTH TWICE DAILY WITH MEALS 360 tablet 020 Active DULoxetine (CYMBALTA) 60 MG capsuleIndications:Diab etic polyneuropathy associated with type 2 diabetes mellitus ([facility]) Take 1 capsule (60 mg total) by [...] 60 mg daily. She is leaving for [place] next week, will be gone for 1 month. She will follow-up with me when she returns. Assessment & Plan (05/01/2019 3:41 PM EDT): Neurology recommended a trial of Cymbalta. Tapering instructions given for Zoloft. After tapered start Cymbalta 30 mg daily. She is leaving for [place] on 05/21 for 1 month, follow-up prior [...] was seeing one when she lived in [place]. She states that she had an EMG [...] function. She uses the pain medication sparingly. CRM BUSINESS ANALYST reviewed. She is willing to try Tramadol instead of Percocet. Follow up in 1 month. Shortness of breath 08/15/2018 Assessment & Plan (08/15/2018 6:10 PM EST): Shortness of breath specifically after eating. Order placed for a barium swallow to screen for a hiatal hernia. detention prescription opiate use 08/15/2018 Moderate persistent asthma [...] she has an upcoming appointment with the death claim clerk. Repeat A1c due in January. Assessment & [...] & Plan (04/18/2019 7:31 AM EDT): Her sap architect ordered repeat blood work, await these results. 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 Assessment & Plan (02/20/2019 3:32 PM EDT): Her sap architect ordered repeat labs, anemia noted to be worse. He is increasing her Epogen. She has follow-up with him in April. Assessment & Plan (12/24/2018 1:27 PM EDT): Followed by nephrology, had recent labs. Epogen dosing was increased. She has follow-up at the end of December. Assessment & Plan (09/13/2018 12:49 PM EST): Patient had blood work done that was ordered by her sap architect. Noted to be iron deficient, she will start 325 mg of ferrous sulfate daily. Assessment & Plan (08/15/2018 6:09 PM EST): Check iron panel, if this is normal I will start Epogen. Her sap architect is in agreement. Vitamin D deficiency 06/26/2017 [...] her iron levels. I also spoke with [facility] and she has an appointment with [...] time. 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 Resolved Problems Problem Noted Date Diagnosed Date Resolved Date Stage 2 skin ulcer of sacral region 04/18/2019 06/14/2019 Assessment & Plan (05/01/2019 3:41 PM EDT): Much improved, almost completely healed. Continue with topical zinc daily. Assessment & Plan (04/18/2019 7:30 AM EDT): Prescription for pressure relieving pad given to patient. Also recommend applying [id number] zinc oxide twice daily. Follow-up in 2 [...] AM EDT Breast screening THINPREP PAP TEST (SENIOR COBOL DEVELOPER) WITH HPV REFLEX Routine 05/02/2018 12:00 AM [...] of LDL-C. Mumtaz SS et al. MILAN. 2013;310(82): 5479-4136 (http://education.Vision Critical/faq/EPL613) Cholesterol/HDL Ratio 2.0 <5.0 (calc) [facility] Non HDL Chol. (LDL+VLDL) 42 <130 mg/dL (calc) [facility] Comment: For patients with diabetes plus 1 major ASCVD risk factor, treating to a non-HDL-C goal of <100 mg/dL (LDL-C of <70 mg/dL) is considered a therapeutic option. Blood specimen (specimen) 07/09/2019 10:45 AM EDT 07/09/2019 10:45 AM EDT Narrative [facility] - 07/10/2019 12:49 AM EDT FASTING:YES FASTING: YES Resulting Agency Comment Performing Organization Information: Site ID: [id number] Name: [facility] Address: [address] [place] [phone] Director: Shawn Goel MD Brenda Tony MD LAB BLOOD ORDERABLES Final R esult [facility] [address] [place] [address] [id number] * (ABNORMAL) POCT Glycosylated Hemoglobin (Hb A1C) (04/30/2019 8:51 AM EDT) Hemoglobin A1C 7.6(A) 4.0 - 6.0 % Lot Number 1 7Th Grade Social Studies Teacher Pass Pass Blood specimen (specimen) 04/30/2019 8:51 [...] approximately 13% higher for people identified as -Belarusian. eGFR Non- 26(L) > OR = 60 [...] Performing Organization Information: Site ID: [id number] Name: [facility] Address: [address] [place] [phone] Director: Shawn Goel MD us Gurjit Baum MD LAB BLOOD ORDERABLES Final Resu lt [facility] [address] [place] [address] * OPHTHALMOLOGY TESTING PROCEDURES (04/02/2019) us External Provider HX AMB PROCEDURES Final Res ult * HX GASTROENTEROLOGY COLONOSCOPY-SCAN (12/10/2018) Gayatri George CUFF MATCHER HX AMB PROCEDURES Final Re sult * [...] S Final Result * ThinPrep Pap Test (Mumps Developer) with HPV Reflex (05/02/2018 12:00 AM EDT) [...] has been evaluated with computer assisted technology. Towel Hemmer: [facility] Comment: [place], CT(ASCP) CT screening location: [place] [address] Comment [facility] Comment: EXPLANATORY NOTE: [...] Performing Organization Information: Site ID: [id number] Name: [facility] Address: [address] [place] [address], [place] [address] Director: Shawn Goel MD us Roselia Abernathy MD LAB AMB PATH/CYTO ORDERAB LES Final Result Performing Organization Address City/[facility]/ZIP Co de Phone Number [facility] [address] [place] [address], [place] [address] * HIV 1/2 Ag/Ab CMIA Reflex to Confirmation (06/13/2017 9:51 AM EDT) [facility] HIV 1/2 Ag/Ab CMIA Negative Negative HOSPITAL LAB Comment: Results show no evidence of infection by HIV 1/2. If clinically indicated, repeat CMIA or test by nucleic acid amplification. Performed at [facility], [place], [place] License 0385 [place] [id number] Blood specimen (specimen) 06/13/2017 9:51 AM EDT 06/13/2017 1:00 PM EDT us Alison Aguirre APRN LAB BLOOD ORDERABLES Lisa l Result HOSPITAL LAB from Last 3 Months or Most Recently Relevant to Health Maintenance Insurance [facility] [employer] MGD MEDICARE [facility] Advance Directives * Full Code (Latest Code Status on File) Date Activated Date Inactivated Comments 01/07/2019 10:11 AM * Full Code Date Activated Date Inactivated Comments 12/26/2017 3:41 PM 02/06/2018 1:44 PM Question Answer Comments Decision Thoroughly Discussed with: Patient Care Teams Operations Officer Trust Department Relationship Specialty Start Date End Date Aging, [facility] 02/04/20 Ralph Wilcox MD [address] [address] Gastroenterology 11/25/20 [place] [address] [place] [address] Consulting Provider Optometry 11/25/20 Roselia Abernathy MD 1 [place] [address] Obstetrics and Gynecology 11/25/20
--- OUTSIDE RECORDS SUMMARY | 2025-05-01 15:25 | XMS_ITS | Patient Health Record ---
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 Problem 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 without evidence of necrosis (L97.516) Active confirmed Problem Peripheral vascular disease (978589599) Peripheral vascular disease (I73.9) Active confirmed Problem Neuropathy (567554326) Neuropathy (G62.9) Active confirmed Problem Chronic kidney disease (570012085) Chronic kidney disease (N18.9) Active confirmed Problem Asthma (806852718) Asthma (J45.909) Active conf irmed Problem Spinal stenosis (32047149) Spinal stenosis (M48.00) Active confirmed Problem Anemia (978959463) Anemia (D64.9) Active confir med Problem CVA - Cerebrovascular accident (702695766) CVA (cerebral vascular accident) (I63.9) Active confirmed Problem Osteoarthritis (277322257) Osteoarthritis (M19.90) Active confirmed Problem Type 2 diabetes mellitus (61496126) Type 2 diabetes mellitus (E11.9) Active confirmed Problem Myocardial infarction (95747946) Myocardial infarction (I21.9) Active confirmed Vital Signs [...] 03/04/2025 Encounters Encounter Location Date Provider Diagnosis [address] [address] 09/19/2024 Sherylrolly [place] Type 2 diabetes mellitus with foot ulcer E11.621 ; 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 without evidence of necrosis L97.516 ; Osteomyelitis M86.9 ; Peripheral vascular disease I73.9 ; Neuropathy G62.9 and Anemia D64.9 [place] [address] [address] 09/26/2024 Kamala Liz Type 2 diabetes mellitus with foot ulcer E11.621 ; 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 without evidence of necrosis L97.516 ; Osteomyelitis M86.9 ; Peripheral vascular disease I73.9 ; Neuropathy G62.9 and Anemia D64.9 [place] [address] [address] 10/03/2024 Kamala Liz Type 2 diabetes mellitus with foot ulcer E11.621 ; 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 without evidence of necrosis L97.516 ; Osteomyelitis M86.9 ; Peripheral vascular disease I73.9 ; Neuropathy G62.9 and Anemia D64.9 [place] [address] [address] 03/04/2025 Anzmaritzaa Claricea Enlarged and hypertrophic nails Q84.5 ; Onycholysis L60.1 ; Peripheral vascular disease I73.9 ; Neuropathy G62.9 and Anemia D64.9 [facility] [address] [address] 03/07/2025 Anzhela Savonina [facility] [address] [address] 09/17/2024 Anzhela Savonina [facility] [address] [address] 02/26/2025 Anzhela Timoonina [facility] [address] [place] [address] 03/11/2025 Anzmaritzaa Claricea Assessments Encounter Date Diagnosis [...] modified footwear. She is scheduled to see [facility] vascular on October 07 and podiatry [...] Insured Coverage Start Date Coverage End Date [facility] [address] [place] [address] [id number] Natalie Cutler Self - patient is the [...]
--- OUTSIDE RECORDS SUMMARY | 2025-05-01 15:26 | XMS_ITS | Clinical Summary ---
Author Organization [address] [facility] Address [address] [place] [address] Phone Care Team Providers Care Service Operations Manager Name Role Phone Eli Dill Primary Care Provider [phone] Allergies Active Allergy Reactions Criticality Noted Date [...] - 03/03/2025 11:59 PM EDT Hospital Encounter [facility]oscopy [address] [place] [address] Corina Muse MD Swanson, Mona, CRNA Freeman, Indiana Chapman MD History of colon polyps; Gastroesophageal reflux disease, unspecified whether esophagitis present Discharge Disposition: Home or Self Care 03/03/2025 Telephone Gastroenterology - [address] [facility] [address] [facility] [address] [place] [address] Corina Muse MD 02/05/2025 Telephone Gastroenterology - [place] [facility] [address] [facility] [address] [place] [address] Brigette Contreras LPN Anticoagulation (Colonoscopy [...] 03/31/2019 non bleeding small bowel [facility] [place] [facility] Medical History Medical History Date Comments Asthma DX:Asthma Diastolic CHF (CMS/HCC V24, CMS/HCC V28) DX:Diastolic CHF (HCC) HTN (hypertension) DX:HTN (hyper tension) HLD (hyperlipidemia) DX:HLD (hyp erlipidemia) Diabetes mellitus (CMS/HCC V 24, [facility] V28) DX:Diabetes mellitus ([facility]) Diabetic neuropathy ([facility] V24, [facility] V28) DX:Diabetic neuropathy ([facility]) CKD (chronic kidney disease) , stage IV ([facility] V24, [facility] V28) DX:CKD (chronic kidney dise ase), stage IV ([facility]); COMMENT: baseline creatinine 2.4 History of CVA [...] DX:Anemia T2DM (type 2 diabetes mellit us) ([facility] V24, [facility] V28) DX:T2DM (type 2 diabetes me llitus) ([facility]) Acute kidney injury superimp osed on chronic kidney disease ([facility] V24) DX:Acute kidney i njury superimposed on chronic kidney disease ([facility]) JOHN (obstructive sleep apnea) DX :JOHN (obstructive sleep apnea) DVT prophylaxis DX:DVT prophylax is Severe anemia DX:Severe anemia COPD (chronic obstructive pu lmonary disease) ([facility] V24, [facility] V28) DX:COPD (chronic o bstructive pulmonary disease) ([facility]); COMMENT: not oxygen dependent Family History Medical History Relation Name Comments Diabetes Mother Heart failure Mother of [place] in her 70s Hypertension Mother Relation Name [...] 04/16/2021, 03/19/2021 Cholesterol Screening (Lipid Panel) 09/03/2022 HIV Screening 09/03/2022 Hepatitis C Screening 09/03/2022 Medicare Annual Wellness Visit 09/03/2022 Social Influencers of Health Screening 09/03/2022 Hypertension/CHF/CAD Annual BMP Blood Test 09/11/2022 04/22/2019, 12/13/2018, 11/29/2018, Additional history exists Diabetes: Annual Urine Albumin-Creatinine Ratio (uACR) 09/14/2022 Diabetes: Blood Sugar Control Test (HGBA1C) 09/14/2022 04/30/2019 Depression Screening 10/02/2024 Influenza Vaccine (#1) 2025 Colorectal Cancer Screening: [...] ID:[id number] Group ID:[id number] Type:Not on file Address: [place] [address] [place] [address] Advance Directives Documents on File Type Date Recorded 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
--- OUTSIDE RECORDS SUMMARY | 2025-05-01 15:26 | XMS_ITS | Clinical Summary ---
Author Organization [facility] Address [address] [facility] [address] [place] [address] Phone Care Team Providers Care Tax Appraiser Name Role Phone Tommie Suarez MD Primary [...] 1 Active ergocalciferol (VITAMIN D2) 1.25 MG (58279 UT) capsule @@TAKE 1 CAPSULE BY MOUTH [...] 10,000 UnitsIndications:Anemi a in chronic kidney disease 14156 Units IJ Weekly 11/12/2020 Active ferumoxytol (FERAHEME) injection 510 mgIndications:Other iron deficiency anemia 510 mg IV Once in dialysis 07/05/2021 Active Epoetin Sally-epbx solution 40,000 UnitsIndications:Anemi a in chronic kidney disease,Chronic kidney disease stage 4 (HCC),Hypertensive renal disease 78287 Units IJ Every 7 days 07/15/2021 Active epoetin sally (EPOGEN,PROCRIT) injection 10,000 UnitsIndications:Anemi a due to Renal Failure 88314 Units IV Every 14 days 09/20/2022 Active [...] Office Visit [facility] [address] [place] [address] Anthony Jay MD [address] [address] Health Maintenance Due Date Last [...] patient's age to complete this topic Insurance [facility] ([id number]) [facility] ([id number]) Care Teams Tax Appraiser Relationship Specialty Start Date End Date Tommie Suarez MD [address] [place] [id number] PCP - General 10/12/20
--- OUTSIDE RECORDS SUMMARY | 2025-05-01 15:26 | XMS_ITS ---
Continuity of Care Document (CCD) Created on: May 01, 2025 Natalie Cutler External Reference #: [id number] : [id number] Sex: Female Author Organization [facility] [address] [place] [address] Phone [phone] Care Team Providers Care Manager Of Corporate Communications Name Role Phone Jennifer Block MD Care Team Information Folder Hand [phone] Problems Active Problems Provider Date Type 2 [...] SIG Qnty Indications Order ing Provider Date Jbgdkqsak09qf Tablets Take One Tablet By Mouth Every Morning ^1R1 90tabs Leann Staton M.D. 11/15/2024 Onetouch VerioStrips Use One Strip To Check Glucose 3 To 4 Times Daily (Bulk) 100units E11.22 Leann Staton M.D. 12/29/2023 Freestyle Jazmine 2/[place]/Flash Glucose Monitoring Zbtsxa0Xuwbil Device use as directed with sensors dx: e11.22 1units E11.22 Leann Staton M.D. 11/23/2023 Freestyle Jazmine 2/Sensor/Flash Glucose Monitoring Rnexpm4Ghqmdw [facility] Use 1 Sensor Every 14 Days as Directed (Bulk) 3units E11.22 Leann Staton M.D. 11/23/2023 Lantus ArroyoQngxqyta397Uovf/ML Solution Pen-Inject Lazaro Suarez MD Montelukast Tjnnlx96bl Tablets 1 by mouth every day 30tabs Tommie Suarez MD Trulicity4.5mg/0.5ML Solution Pen-Inject inject 4.5mg into skin every week 6ml Tommie Suarez MD Vitamin D (Ergocalciferol)1.25m g (61094 Ut) Capsules Tommie Suarez MD Atorvastatin Dphnyxa33gp Tablets 1 by mouth every day 90tabs Tommie Suarez MD Aspirin Low Uqoi25we Tablets DR 1 by mouth every day Tommie Suarez MD Albuterol Sulfate EWV761(90Base) mcg/Act Aerosol Tommie Suarez MD Qxbxvevxou523yu Capsules 1 capsule by twice daily 180caps Tommie Suarez MD Foiiikmjto8ci Tablets 1 tab by mouth twice a day Tommie Suraez MD Pantoprazole Nncrod74ms Tablets DR 1 by mouth every day 90tabs Tommie Suarez MD Novolog Ixeopsc607Exlj/ML Solution Pen-Inject Lazaro Suarez MD Vital Signs [...] 190 Procedures Date Code Description Status 02/13/2025 84826 Glucose Monitoring Interpeta tion And Report Completed 11/15/2024 55239 Glucose Monitoring Interpeta tion And Report Completed 08/01/2024 23391 Glucose Monitoring Interpeta tion And Report Completed Medical Devices Description No Information Available Encounters Type Date Location Provider Dx Diagnosis Office Visit 02/13/2025 2:15p Main Office EL[facility] Robins 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 E11.42 Type 2 diabetes mila itus with diabetic polyneuropathy Z79.4 manager long term care (current) use of insulin D63.1 Anemia in chronic ki dney disease Assessments Date Code Description Provider 02/13/2025 E11.22 Type 2 diabetes mellitus with diabetic chronic kidney disease ELENO Robins 02/13/2025 E11.42 Type 2 diabetes mellitus with diabetic polyneuropathy ELENO Robins 02/13/2025 Z79.4 assisted (current) use of i nsulin ELENO Robins 02/13/2025 D63.1 Anemia in chronic kidney dis ease ELENO Robins Plan of Treatment Future Appointment(s):* 05/16/2025 1:15 pm - Marilin Freeman CNP at Main Office 11/15/2024 - [facility] Robins* E11.22 Type 2 diabetes mellitus with diabetic chronic kidney disease * E11.42 Type 2 diabetes mellitus with diabetic polyneuropathy * Z79.4 manager long term care (current) use of insulin * D63.1 Anemia in chronic kidney disease * Functional Status Description No Information Available Mental Status Description No Information Available Referrals Description No Information Available
--- NOTE | 2025-05-01 15:41 | HO.NEPHOV ---
Vital Signs 05/01/25 15:42 Height 5 ft 6 in Weight 190 lb BMI 30.7 BP 130/70 Blood Pressure Location Lt brachial Position Sitting Intake Visit Reasons: 2wk follow up-Conf Electric Vehicle Electrician Required: No Accompanied by: Self / Same As Patient Allergies baclofen Allergy (Severe, Verified 05/01/25 15:41) can't move sulfacetamide Allergy (Severe, Verified 05/01/25 15:41) tongue swelling sulfur Allergy (Severe, Verified 05/01/25 15:41) tongue swelling HPI Comments Details: Ms. Cutler was seen in the office in follow-up of her chronic kidney disease, hypertension and anemia. She had R 1 toe amputated. Her wound has not been healing. She denies any headache, visual disturbance, nausea, vomiting, diarrhea, chest pain, shortness of breath, worsening pedal edema or urinary symptoms. She denies any uremic symptoms. She claims to have her blood sugars better .She denies taking any qnch-lod-myorywm medications. She is on lipid-lowering agents. Her blood pressure is better controlled. [facility] Medical History (Updated 02/25/25 @ 10:36 by Lamonte Quiroga MD) Anemia in chronic kidney disease Sleep apnea Myocardial infarction CVA (cerebral vascular accident) Type 2 diabetes mellitus with diabetic polyneuropathy Chronic kidney disease, stage 4 (severe) Essential hypertension Hyperlipidemia LDL goal <70 Obesity due to excess calories Chronic, continuous use of opioids Chronic pain syndrome Spinal stenosis, lumbar region with neurogenic claudication Surgical History History of rotator cuff surgery History of abdominoplasty Status post breast reduction Hx of toe surgery Family History Father No problems noted. Mother Diabetes Hypertension Sister No problems noted. Sister No problems noted. Son No problems noted. Social History Household Members: Friend(s) Household Members Other:: roomate Housing: Apartment Alcohol intake: never Patient Tobacco Use Status: Former Tobacco user Tobacco use type: Cigarette Cigarette Packs Per Day: 0.5 e-Cigarette/Vaping Use: Never Used Second Hand Smoke Exposure: No Advance Directives Date on File: 07/07/20 service: No Current occupational status: disabled Current occupational exposures/hazards: No Cognitive needs: No Hearing needs: No Vision needs: No Review of Systems Const All systems reviewed & are unremarkable except as noted in HPI and below Physical Exam Vital Signs: Last Vital Signs BP 130/70 05/01/25 15:42 BMI result Body Mass Index 30.7 Const General: comfortable and no acute distress Orientation/consciousness: patient oriented x3 HEENT Head: Yes normocephalic Mouth: Normal oral and palatal mucosa present Eyes EOM: EOMs intact bilaterally Neck Neck: Yes supple Resp Auscultation: clear to auscultation bilaterally Cardio Jugular venous distension: no JVD Rate: regular rate Heart sounds: Murmur heart sound present GI Palpation (GI): Soft to palpation Auscultation: normal bowel sounds General: Yes no CVA tenderness Back/Spine/Pelvis Back: no CVA tenderness Skin General skin exam: no rashes or lesions noted Neuro General: patient oriented x3 and moves all extremities Assessment & Plan Assessment & Plan (1) Essential hypertension: Code(s): I10 - Essential (primary) hypertension Category: Medical (2) Secondary hyperparathyroidism (of renal origin): Code(s): N25.81 - Secondary hyperparathyroidism of renal origin Category: Medical (3) Type 2 diabetes mellitus with diabetic chronic kidney disease: Code(s): E11.22 - Type 2 diabetes mellitus with diabetic chronic kidney disease Category: Medical Qualifiers: Diabetes mellitus halfway insulin use: with manager long term care use Chronic kidney disease stage: stage 4 (severe) Qualified Code(s): E11.22 - Type 2 diabetes mellitus with diabetic chronic kidney disease; N18.4 - Chronic kidney disease, stage 4 (severe); Z79.4 - truck terminal manager (current) use of insulin (4) Chronic kidney disease, stage 4 (severe): Code(s): N18.4 - Chronic kidney disease, stage 4 (severe) Category: Medical Plan 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 She had BRANDON on CKD due to tubular injury. She had not been tolerating ALEJO-inhibitor but is on hydralazine and Imdur. Her previous renal ultrasound had shown thinning of renal cortex. She had extensive workup done which did not show any other etiology for her CKD. She could continue Bumex every other day. She should cut back sodium in the diet. She had iron deficiency and had received Venofer . She also had been on Procrit. I D/Fish her KCl. She is on Jardiance which I plan to increase to 25 mg with time. She has history of secondary hyperparathyroidism of renal origin. She had been on vitamin-D and calcitriol. All questions answered Orders: Orders Complete Blood Count Auto Diff 4 Weeks N18.4 - Chronic kidney disease, stage 4 (severe) Blood Urea Nitrogen 4 Weeks N18.4 - Chronic kidney disease, stage 4 (severe) Creatinine 4 Weeks N18.4 - Chronic kidney disease, stage 4 (severe) Electrolytes 4 Weeks N18.4 - Chronic kidney disease, stage 4 (severe) Coding Level of Care Code Est Pt Level 4 (46277) Diagnoses Essential hypertension I10 Secondary hyperparathyroidism (of renal origin) N25.81 Type 2 diabetes mellitus with stage 4 chronic kidney disease, with long-term current use of insulin E11.22; N18.4; Z79.4 Diabetes mellitus manager long term care insulin use: with manager long term care use Chronic kidney disease stage: stage 4 (severe) Chronic kidney disease, stage 4 (severe) N18.4
[2025-05-01 15:42] VITALS: BP 130/70; BMI 30.7
== END 2025-05-01 16:05 | disposition home or self-care (01) ==
LOC: HO.HKAS 15:18
PROVIDERS: PCP Family Medicine; Visit Provider Internal Medicine Nephrology
DX: I12.9 Hypertensive chronic kidney disease with stage 1 through stage 4 chronic kidney disease, or unspecified chronic kidney disease (principal); N25.81 Secondary hyperparathyroidism of renal origin; E11.22 Type 2 diabetes mellitus with diabetic chronic kidney disease; N18.4 Chronic kidney disease, stage 4 (severe); Z79.4 Long term (current) use of insulin
CPT/HCPCS: 99214

== ENCOUNTER → 2025-05-01 15:18 | Outpatient (BNVA) | payer OTHER, SELFPAY | PROVIDERS: PCP Family Medicine; Visit Provider Internal Medicine Nephrology | DX: E11.42 Type 2 diabetes mellitus with diabetic polyneuropathy (principal); E11.22 Type 2 diabetes mellitus with diabetic chronic kidney disease; I12.9 Hypertensive chronic kidney disease with stage 1 through stage 4 chronic kidney disease, or unspecified chronic kidney disease; N18.4 Chronic kidney disease, stage 4 (severe); D63.1 Anemia in chronic kidney disease; Z79.4 Long term (current) use of insulin | CPT/HCPCS: 99212 ==

== ENCOUNTER 2025-06-19 14:23 | Outpatient (AMB) | payer OTHER, SELFPAY ==
--- NOTE | 2025-06-19 14:37 | HO.NEPHOV_ITS ---
Vital Signs 06/19/25 14:41 Height 5 ft 6 in Weight 199 lb 6 oz BMI 32.2 BP 140/80 H Blood Pressure Location Rt brachial Position Sitting Intake Visit Reasons: 1mnth-Conf Battery Charger Required: No Accompanied by: Self / Same As Patient Allergies baclofen Allergy (Severe, Verified 06/19/25 14:40) can't move sulfacetamide Allergy (Severe, Verified 06/19/25 14:40) tongue swelling sulfur Allergy (Severe, Verified 06/19/25 14:40) tongue swelling HPI Comments Details: Ms. Cutler was seen in the office in follow-up of her chronic kidney disease, hypertension and anemia. She had R 1 toe amputated. Her wound has not been healing. She denies any headache, visual disturbance, nausea, vomiting, diarrhea, chest pain, shortness of breath, worsening pedal edema or urinary symptoms. She denies any uremic symptoms. She claims to have her blood sugars better .She denies taking any mxsg-les-yxfipvq medications. She is on lipid- lowering agents. Her blood pressure is better controlled [facility] Medical History (Updated 02/25/25 @ 10:36 by Lamonte Quiroga MD) Anemia in chronic kidney disease Sleep apnea Myocardial infarction CVA (cerebral vascular accident) Type 2 diabetes mellitus with diabetic polyneuropathy Chronic kidney disease, stage 4 (severe) Essential hypertension Hyperlipidemia LDL goal <70 Obesity due to excess calories Chronic, continuous use of opioids Chronic pain syndrome Spinal stenosis, lumbar region with neurogenic claudication Surgical History History of rotator cuff surgery History of abdominoplasty Status post breast reduction Hx of toe surgery Family History Father No problems noted. Mother Diabetes Hypertension Sister No problems noted. Sister No problems noted. Son No problems noted. Social History Household Members: Friend(s) Household Members Other:: roomate Housing: Apartment Alcohol intake: never Patient Tobacco Use Status: Former Tobacco user Tobacco use type: Cigarette Cigarette Packs Per Day: 0.5 e-Cigarette/Vaping Use: Never Used Second Hand Smoke Exposure: No Advance Directives Date on File: 07/07/20 service: No Current occupational status: disabled Current occupational exposures/hazards: No Cognitive needs: No Hearing needs: No Vision needs: No Review of Systems Const All systems reviewed & are unremarkable except as noted in HPI and below Physical Exam Vital Signs: Last Vital Signs BP 140/80 H 06/19/25 14:41 BMI result Body Mass Index 32.2 Const General: comfortable and no acute distress Orientation/consciousness: patient oriented x3 HEENT Head: Yes normocephalic Mouth: Normal oral and palatal mucosa present Eyes EOM: EOMs intact bilaterally Neck Neck: Yes supple Resp Auscultation: clear to auscultation bilaterally Cardio Jugular venous distension: no JVD Rate: regular rate GI Palpation (GI): Soft to palpation Auscultation: normal bowel sounds General: Yes no CVA tenderness Back/Spine/Pelvis Back: no CVA tenderness Skin General skin exam: no rashes or lesions noted Neuro General: patient oriented x3 and moves all extremities Extrem General: Yes no pedal edema Office Meds epoetin sally-epbx 10,000 unit/mL injection solution Performing Provider: Lamonte Quiroga MD Performing Location: [facility] Administered by: Lamonte Quiroga MD on 06/19/25 14:54 Dose Route Admin Location Dispensed Lot Number Expiration Date [facility] Grade Foreman 20,000 unit subcut LUE 2 mL [id number] 11/02/26 8845-7402-91 [employer] Total Dispensed Waste 2 mL 0 % Assessment & Plan Assessment & Plan (1) Essential hypertension: Code(s): I10 - Essential (primary) hypertension Category: Medical (2) Chronic kidney disease, stage 4 (severe): Code(s): N18.4 - Chronic kidney disease, stage 4 (severe) Category: Medical (3) Anemia in chronic kidney disease: Code(s): N18.9 - Chronic kidney disease, unspecified; D63.1 - Anemia in chronic kidney disease Category: Medical Qualifiers: Chronic kidney disease stage: stage 4 (severe) Qualified Code(s): N18.4 - Chronic kidney disease, stage 4 (severe); D63.1 - Anemia in chronic kidney disease Plan 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 She had BRANDON on CKD due to tubular injury which has resolved. She had not been tolerating ALEJO-inhibitor but is on hydralazine and Imdur. Her previous renal ultrasound had shown thinning of renal cortex. She had extensive workup done which did not show any other etiology for her CKD. She could continue Bumex every other day. She should cut back sodium in the diet. She had iron deficiency and had received Venofer . She also had been on Procrit which I gave 06325 U today in the office. She is on Jardiance which I plan to increase to 25 mg with time. She has history of secondary hyperparathyroidism of renal origin. She had been on vitamin-D and calcitriol. F/U labs ordered. All questions answered Orders: Orders AMB Epoetin Injection Practice Supplied Today D63.1 - Anemia in chronic kidney disease, N18.4 - Chronic kidney disease, stage 4 (severe) Ferritin 2 Months D63.1 - Anemia in chronic kidney disease, I10 - Essential (primary) hypertension, N18.4 - Chronic kidney disease, stage 4 (severe) Complete Blood Count Auto Diff 2 Months D63.1 - Anemia in chronic kidney disease, I10 - Essential (primary) hypertension, N18.4 - Chronic kidney disease, stage 4 (severe) Creatinine 2 Months D63.1 - Anemia in chronic kidney disease, I10 - Essential (primary) hypertension, N18.4 - Chronic kidney disease, stage 4 (severe) Blood Urea Nitrogen 2 Months D63.1 - Anemia in chronic kidney disease, I10 - Essential (primary) hypertension, N18.4 - Chronic kidney disease, stage 4 (severe) Electrolytes 2 Months D63.1 - Anemia in chronic kidney disease, I10 - Essential (primary) hypertension, N18.4 - Chronic kidney disease, stage 4 (severe) Calcium 2 Months D63.1 - Anemia in chronic kidney disease, I10 - Essential (primary) hypertension, N18.4 - Chronic kidney disease, stage 4 (severe) Phosphorus 2 Months D63.1 - Anemia in chronic kidney disease, I10 - Essential (primary) hypertension, N18.4 - Chronic kidney disease, stage 4 (severe) Vitamin D 25-OH Total 2 Months D63.1 - Anemia in chronic kidney disease, I10 - Essential (primary) hypertension, N18.4 - Chronic kidney disease, stage 4 (severe) Parathyroid Hormone Intact 2 Months D63.1 - Anemia in chronic kidney disease, I10 - Essential (primary) hypertension, N18.4 - Chronic kidney disease, stage 4 (severe) IRON PROFILE 2 Months D63.1 - Anemia in chronic kidney disease, I10 - Essential (primary) hypertension, N18.4 - Chronic kidney disease, stage 4 (severe) Coding Level of Care Code Est Pt Level 4 (52981) Diagnoses Essential hypertension I10 Chronic kidney disease, stage 4 (severe) N18.4 Anemia in stage 4 chronic kidney disease N18.4; D63.1 Chronic kidney disease stage: stage 4 (severe)
[2025-06-19 14:41] VITALS: BP 140/80; BMI 32.2
--- OUTSIDE RECORDS SUMMARY | 2025-06-19 16:11 | XMS_ITS | Encounter Summary ---
Author Organization [facility] Address [address] [place] [address] Care Team Providers Care Color Mixer Name Role Phone Gayatri George APRN Primary Care Provider [phone] Neva Velásquez RN Unavailable Albaro Kellogg MD Unavailable [facility] Unavailable [phone] Ralph Wilcox MD Unavailable Otilia Paulson OD Unavailable Roselia Abernathy MD Unavailable [phone] Gayatri George APRN Primary Care Provider Encounter Details Date Type Department Care Team (Late st Contact Info) Description 09/11/2019 Scanned Document [address] [place] [id number] Gayatri George APRN [address] [place] [address] Social History Tobacco Use Types Packs/Day Years [...] on filedocumented in this encounter Care Teams Color Mixer Relationship Specialty Start Date End Date Gayatri George APRN PCP - General Family Medicine 07/17/18 11/17/20 Gayatri George APRN PCP - General Family Medicine 11/25/20 01/20/21 Neva Velásquez, JAMAR [address] David [address] [address] [facility] Community Ophthalmic Photographer 11/29/18 08/15/21 Albaro Kellogg MD [address] [place] [id number] Physician Endocrinology 08/01/19 11/17/20 [facility], [facility] 02/04/20 Ralph Wilcox MD [address] [place] [id number] Gastroenterology 11/25/20 Otilia Paulson OD [address] [place] [phone] Consulting Provider Optometry 11/25/20 Roselia Abernathy MD [address] [place] [id number] Obstetrics and Gynecology 11/25/20 documented as of this encounter
--- OUTSIDE RECORDS SUMMARY | 2025-06-19 16:11 | XMS_ITS | Clinical Summary ---
Author Organization [facility] Address [address] [place] [address] Care Team Providers Care Electron Beam Machine Welder Setter Name Role Phone [facility] Unavailable [phone] Ralph Wilcox MD Unavailable [phone] Otilia Paulson OD Unavailable [phone] Roselia Abernathy MD Unavailable [phone] Allergies Active Allergy Reactions Criticality Noted Date [...] long-term current use of insulin ([facility]) Use to check FSBG 2 X daily. 200 lancet 019 Active lidocaine (XYLOCAINE) 4 % external solutionIndications:Farida betic polyneuropathy associated with type 2 diabetes mellitus ([facility]) Apply topically 4 (four) times a [...] mellitus with neurological manifestations, uncontrolled(250.62) ([facility]) Once nightly injection 120 pen needle 11 019 Active ACCU-CHEK ABNER PLUS stripIndications:Type II or unspecified type diabetes mellitus with neurological manifestations, uncontrolled(250.62) ([facility]) 4 times daily. 120 test strip 11 Active Continuous Blood Gluc Back Line Cook (FREESTYLE EMILE 14 DAY READER) DeviceIndications:Type II or unspecified type diabetes mellitus with neurological manifestations, uncontrolled(250.62) ([facility]) Apply 1 Device topically continuous. 1 Device 019 Active glucose blood (ACCU-CHEK ABNER PLUS) test stripIndications:Contro lled type 2 diabetes mellitus with diabetic polyneuropathy, with long-term current use of insulin ([facility]) TEST TWICE DAILY 200 test strip Active polyethylene glycol-electrolytes (NuLYTELY, TRILYTE) 420 g solution MIX AND DRINK UTD 0 019 Active Insulin Syringe-Needle U-100 (INSULIN SYRINGE 1CC/31GX5/16 ) 31G X 5/16 1 ML Misc U WITH EPOGEN Q 14 DAYS 1 019 Active SUPPLY DME MISCIndications:Stage 2 skin ulcer of sacral region ([facility]) Pressure relieving cushion 1 supply 019 Active Continuous Blood Gluc Sensor (FREESTYLE EMILE 14 DAY SENSOR) MiscIndications:Type II or unspecified type diabetes mellitus with neurological manifestations, uncontrolled(250.62) ([facility]) Apply 1 Device topically continuous. Apply [...] pen 3 019 Active epoetin sally (EPOGEN,PROCRIT) 62087 UNIT/ML injectionIndications:An emia, chronic renal failure, stage 4 (severe) ([facility]) Inject 2 mL (20,000 Units total) under the skin every 14 days (2 weeks). 14 mL 1 019 Active SYRINGE-NEEDLE, DISP, 3 ML (B-D 3CC LUER-LUCRETIA SYR 25GX1/2 ) 25G X 1-/2 3 ML MiscIndications:Anemia, chronic renal failure, stage 4 (severe) ([facility]) Please use to inject Procrit Q [...] mellitus with neurological manifestations, uncontrolled(250.62) ([facility]) INJECT SUBCUTANEOUSLY 20 UNITS DAILY 10 pen 3 019 Active dulaglutide (TRULICITY) 0.75 MG/0.5ML subcutaneous injectionIndications:Co ntrolled type 2 diabetes mellitus with diabetic polyneuropathy, with long-term current use of insulin ([facility]) Inject 0.5 mL (0.75 mg total) under the skin once a week. 4 pen 3 019 Active carvedilol (COREG) 6.25 MG tabletIndications:Essen tial hypertension TAKE 2 TABLETS(12.5 MG) BY MOUTH TWICE DAILY WITH MEALS 360 tablet 020 Active DULoxetine (CYMBALTA) 60 MG capsuleIndications:Diab etic polyneuropathy associated with type 2 diabetes mellitus ([facility]) Take 1 capsule (60 mg total) [...] 60 mg daily. She is leaving for [place] next week, will be gone for 1 month. She will follow-up with me when she returns. Assessment & Plan (05/01/2019 3:41 PM EDT): Neurology recommended a trial of Cymbalta. Tapering instructions given for Zoloft. After tapered start Cymbalta 30 mg daily. She is leaving for [place] on 05/21 for 1 month, follow-up prior [...] was seeing one when she lived in [place]. She states that she had an EMG [...] function. She uses the pain medication sparingly. CONSTRUCTION REP reviewed. She is willing to try Tramadol [...] she has an upcoming appointment with the lithopress operator. Repeat A1c due in January. Assessment & [...] & Plan (04/18/2019 7:31 AM EDT): Her automobile inspector ordered repeat blood work, await these results. 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 Assessment & Plan (02/20/2019 3:32 PM EDT): Her automobile inspector ordered repeat labs, anemia noted to be worse. He is increasing her Epogen. She has follow-up with him in April. Assessment & Plan (12/24/2018 1:27 PM EDT): Followed by nephrology, had recent labs. Epogen dosing was increased. She has follow-up at the end of December. Assessment & Plan (09/13/2018 12:49 PM EST): Patient had blood work done that was ordered by her automobile inspector. Noted to be iron deficient, she will start 325 mg of ferrous sulfate daily. Assessment & Plan (08/15/2018 6:09 PM EST): Check iron panel, if this is normal I will start Epogen. Her automobile inspector is in agreement. Vitamin D deficiency 06/26/2017 [...] her iron levels. I also spoke with [facility] and she has an appointment with [...] time. She is due to see her senior telecommunications engineer in September. Resolved Problems Problem Noted Date Diagnosed Date Resolved Date Stage 2 skin ulcer of sacral region 04/18/2019 06/14/2019 Assessment & Plan (05/01/2019 3:41 PM EDT): Much improved, almost completely healed. Continue with topical zinc daily. Assessment & Plan (04/18/2019 7:30 AM EDT): Prescription for pressure relieving pad given to patient. Also recommend applying ttil-zks-eclpyin zinc oxide twice daily. Follow-up in 2 weeks for reassessment. Follow-up surgery care 01/13/201802/20 Sexual dysfunction in females 01/11/2018 02/20/2019 Encounters Date Type Department Care Team Description 06/18/2025 Telephone [facility] [address] [place] [address] Jigna Valladares from Last 3 Months Family History Medical [...] Smear (Ages 21-65) 05/02/2021 05/02/2018 Influenza Vaccine 05/02/2025 COVID-19 Vaccine ( season) 2025 Colonoscopy 12/10/2028 12/10/2018 HIV Screening Completed 06/13/2017 [...] AM EDT Breast screening THINPREP PAP TEST (CLINICAL INFORMATICS SPECIALIST) WITH HPV REFLEX Routine 05/02/2018 12:00 AM [...] equation in the estimation of LDL-C. Mumtaz REBOLLEDO et al. MILAN. 2013;310(19): 3199-3772 (http://education.[employer]/faq/QGW412) Cholesterol/HDL Ratio 2.0 <5.0 (calc) [facility] Non HDL Chol. (LDL+VLDL) 42 [...] Performing Organization Information: Site ID: [id number] Name: [facility] Address: [address] [place] [address], [place] [address] Director: Shawn Goel MD Brenda Tony MD LAB BLOOD ORDERABLES Final R esult [facility] [address] [place] [address], [place] [address] * (ABNORMAL) POCT Glycosylated Hemoglobin (Hb A1C) (04/30/2019 8:51 AM EDT) Hemoglobin A1C 7.6(A) 4.0 - 6.0 % Lot Number 1 Small Business Sales Representative Pass Pass Blood specimen (specimen) 04/30/2019 8:51 [...] approximately 13% higher for people identified as -Guamanian. eGFR Non- 26(L) > OR = 60 [...] Performing Organization Information: Site ID: [id number] Name: [facility] Address: [address] [place] [address], [place] [address] Director: Shawn Goel MD Gurjit Baum MD LAB BLOOD ORDERABLES Final Resu lt [facility] [address] [place] [address], [place] [address] * OPHTHALMOLOGY TESTING PROCEDURES (04/02/2019) External Provider HX AMB PROCEDURES Final Res ult * HX GASTROENTEROLOGY COLONOSCOPY-SCAN (12/10/2018) Gayatri George ADVERTISING COPY WRITER HX AMB PROCEDURES Final Re sult * [...] S Final Result * ThinPrep Pap Test (Portable Sawmill Operator) with HPV Reflex (05/02/2018 12:00 AM EDT) [...] has been evaluated with computer assisted technology. Equipment Specialist: [facility] Comment: [place], [place](ASCP) CT screening location: [address] [address] Comment [facility] Comment: EXPLANATORY NOTE: The Pap [...] Performing Organization Information: Site ID: [id number] Name: [employer] [facility] Address: [address] [place] [address], [place] [address] Director: Shawn Goel MD us Roselia Abernathy MD LAB AMB PATH/CYTO ORDERAB LES Final Result Performing Organization Address City/[facility]/ZIP Co de Phone Number [facility] [address], [facility] [place] [address] * HIV 1/2 Ag/Ab CMIA Reflex to Confirmation (06/13/2017 9:51 AM EDT) [facility] HIV 1/2 Ag/Ab CMIA Negative Negative HOSPITAL LAB Comment: Results show no evidence of infection by HIV 1/2. If clinically indicated, repeat CMIA or test by nucleic acid amplification. Performed at [facility], [place], [place] License 0385 CLIA [id number] Blood specimen (specimen) 06/13/2017 9:51 AM EDT 06/13/2017 1:00 PM EDT us Alison Aguirre APRN LAB BLOOD ORDERABLES Lisa l Result HOSPITAL LAB from Last 3 Months or Most Recently Relevant to Health Maintenance Insurance [facility] [employer] MGD MEDICARE [facility] Advance Directives * Full Code (Latest Code Status on File) Date Activated Date Inactivated Comments 01/07/2019 10:11 AM * Full Code Date Activated Date Inactivated Comments 12/26/2017 3:41 PM 02/06/2018 1:44 PM Question Answer Comments Decision Thoroughly Discussed with: Patient Care Teams Electron Beam Machine Welder Setter Relationship Specialty Start Date End Date Aging, [facility] 02/04/20 Ralph Wilcox MD [address] [address] Gastroenterology 11/25/20 Otilia Paulson OD [address] [place] [address] Consulting Provider Optometry 11/25/20 Roselia Abernathy MD [address] [place] [address] Obstetrics and Gynecology 11/25/20
--- OUTSIDE RECORDS SUMMARY | 2025-06-19 16:11 | XMS_ITS | Encounter Summary ---
Author Organization [facility] Address [address] [place] [address] Care Team Providers Care Gm/Svp Global Publisher Business Name Role Phone [facility], [place] [facility] Unavailable [phone] Ralph Wilcox MD Unavailable [phone] Otilia Paulson OD Unavailable Roselia Abernathy MD Unavailable [phone] Encounter Details Date Type Department Care Team (Late st Contact Info) Description 06/18/[address] [place] [phone] Jigna Valladares PR Social History Tobacco Use Types Packs/Day Years [...] encounter Miscellaneous Notes * Telephone Encounter - Jigna Valladares - 06/18/2025 11:16 AM EDT This is from Dr. Wilcox at [facility] to let you know you are due for follow-up care. Please call us at . Reply Stop to opt out. documented in this encounter Plan of Treatment Not on file documented as of this encounter Visit Diagnoses Not on filedocumented in this encounter Care Teams Gm/Svp Global Publisher Business Relationship Specialty Start Date End Date [facility], [facility] 02/04/20 Ralph Wilcox MD [address] [place] [address] Gastroenterology 11/25/20 Otilia Paulson OD [address] [place] [address] Consulting Provider Optometry 11/25/20 Roselia Abernathy MD [address] [place] [address] Obstetrics and Gynecology 11/25/20 documented as of this encounter
--- OUTSIDE RECORDS SUMMARY | 2025-06-19 16:11 | XMS_ITS | Encounter Summary ---
Author Organization [facility] Address [address] [place] [address] Care Team Providers Care Filter Press Tender Head Name Role Phone Gayatri George APRN Primary Care Provider [phone] Neva Velásquez RN Unavailable Albaro Kellogg MD Unavailable Aging, [facility] Unavailable Ralph Wilcox MD Unavailable [phone] Otilia Paulson OD Unavailable [phone] Roselia Abernathy MD Unavailable [phone] Gayatri George APRN Primary Care Provider Gayatri George APRN Unavailable [phone] Encounter Details Date Type Department Care Team (Late st Contact Info) Description 05/03/2019 Scanned Document [facility] Endocrinology [address] [phone] Qi Aponte PA [address] [place] [address] [phone] Social History Tobacco Use Types Packs/Day Years [...] on filedocumented in this encounter Care Teams Filter Press Tender Head Relationship Specialty Start Date End Date Gayatri George APRN PCP - General Family Medicine 07/17/18 11/17/20 Gayatri George APRN PCP - General Family Medicine 11/25/20 01/20/21 Gayatri George APRN [address] [place] [address] PCP - [employer] Medicare Attributed 03/02/19 06/01/19 Neva Velásquez, RN [address] [place] Juan [facility] 4 [place] [address] [facility] Community Filter Assembler 11/29/18 08/15/21 Albaro Kellogg MD [address] [place] [address] Physician Endocrinology 08/01/19 11/17/20 [facility], [place] [facility] 02/04/20 Ralph Wilcox MD [address] [place] [address] Gastroenterology 11/25/20 Otilia Paulson OD [address] [place] [address] Consulting Provider Optometry 11/25/20 Roselia Abernathy MD [address] [place] [address] Obstetrics and Gynecology 11/25/20 documented as of this encounter
--- OUTSIDE RECORDS SUMMARY | 2025-06-19 16:11 | XMS_ITS | Encounter Summary ---
Author Organization [facility] Address [address] [place] [address] Care Team Providers Care Sausage Stuffer Name Role Phone Gayatri George APRN Primary Care Provider [phone] Neva Velásquez RN Unavailable Albaro Kellogg MD Unavailable A[facility], [facility] Unavailable Ralph Wilcox MD Unavailable [phone] Otilia Paulson OD Unavailable [phone] Roselia Abernathy MD Unavailable [phone] Gayatri George APRN Primary Care Provider Gayatri George APRN Unavailable [phone] Encounter Details Date Type Department Care Team (Late st Contact Info) Description 05/01/2019 Scanned Document [facility] Endocrinology [address] [phone] Qi Aponte PA [address] [place] [address] [phone] Social History Tobacco Use Types Packs/Day Years [...] on filedocumented in this encounter Care Teams Sausage Stuffer Relationship Specialty Start Date End Date Gayatri George APRN PCP - General Family Medicine 07/17/18 11/17/20 Gayatri George APRN PCP - General Family Medicine 11/25/20 01/20/21 Gayatri George APRN [address] [place] [address] PCP - United Medicare Attributed 03/02/19 06/01/19 Neva Velásquez, RN [address] [place] Juan David [facility] 4 [place] [address] [facility] Community Pneumatic Tester 11/29/18 08/15/21 Albaro Kellogg MD [address] [place] [address] Physician Endocrinology 08/01/19 11/17/20 [facility], [place] [facility] [place] [facility] 02/04/20 Ralph Wilcox MD [address] [place] [address] Gastroenterology 11/25/20 Otilia Paulson OD [address] [place] [address] Consulting Provider Optometry 11/25/20 Roselia Abernathy MD [address] [place] [address] Obstetrics and Gynecology 11/25/20 documented as of this encounter
--- OUTSIDE RECORDS SUMMARY | 2025-06-19 16:11 | XMS_ITS | Encounter Summary ---
Author Organization [facility] Address [address] [place] [address] Care Team Providers Care Parts Room Associate Name Role Phone Gayatri George APRN Primary Care Provider [phone] Neva Velásquez RN Unavailable Albaro Kellogg MD Unavailable Aging, [facility] Unavailable [phone] Ralph Wilcox MD Unavailable [phone] Otilia Paulson OD Unavailable [phone] Roselia Abernathy MD Unavailable [phone] Gayatri George APRN Primary Care Provider Gayatri George APRN Unavailable [phone] Encounter Details Date Type Department Care Team (Late st Contact Info) Description 05/01/2019 Scanned Document [facility] Endocrinology [address] [phone] Qi Aponte PA [address] [place] [address] [phone] Social History Tobacco Use Types Packs/Day Years [...] on filedocumented in this encounter Care Teams Parts Room Associate Relationship Specialty Start Date End Date Gayatri George APRN PCP - General Family Medicine 07/17/18 11/17/20 Gayatri George APRN PCP - General Family Medicine 11/25/20 01/20/21 Gayatri George APRN [address] [place] [address] PCP - United Medicare Attributed 03/02/19 06/01/19 Neva Velásquez, RN [address] [place] Juan [facility] 4 [place] [address] [facility] Community Shovel Logger 11/29/18 08/15/21 Albaro Kellogg MD [address] [place] [address] Physician Endocrinology 08/01/19 11/17/20 [facility], [place] For [facility] 02/04/20 Ralph Wilcox MD [address] [place] [address] Gastroenterology 11/25/20 Otilia Paulson OD [address] [place] [address] Consulting Provider Optometry 11/25/20 Roselia Abernathy MD [address] [place] [address] Obstetrics and Gynecology 11/25/20 documented as of this encounter
--- OUTSIDE RECORDS SUMMARY | 2025-06-19 16:12 | XMS_ITS | Encounter Summary ---
Author Organization [facility] Address [address] [place] [address] Care Team Providers Care Side Show Entertainer Name Role Phone Gayarti George APRN Primary Care Provider [phone] Neva Velásquez RN Unavailable Albaro Kellogg MD Unavailable Aging, [facility] Unavailable Ralph Wilcox MD Unavailable Otilia Paulson OD Unavailable [phone] Roselia Abernathy MD Unavailable Gayatri George SILK SCREEN PROCESSOR Primary Care Provider [phone] Gayatri George APRN Unavailable [phone] Reason for Visit * Reason Comments Medication Refill Encounter Details Date Type Department Care Team (Late st Contact Info) Description 01/28/[address] [place] [address] [phone] Gayatri George, SILK SCREEN PROCESSOR [address] [place] [address] Insomnia, unspecified type Social History Tobacco Use [...] type documented in this encounter Care Teams Side Show Entertainer Relationship Specialty Start Date End Date Gayatri George APRN PCP - General Family Medicine 07/17/18 11/17/20 Gayatri George APRN PCP - General Family Medicine 11/25/20 01/20/21 Gayatri George APRN [address] [place] [address] PCP - United Medicare Attributed 03/02/19 06/01/19 Neva Velásquez, RN [address] [facility] 4 [place] [address] [facility] Community Button Breaker 11/29/18 08/15/21 Albaro Kellogg MD [address] [place] [address] Physician Endocrinology 08/01/19 11/17/20 Aging, [place] For [facility] 02/04/20 Ralph Wilcox MD [address] [place] [address] Gastroenterology 11/25/20 [place] [address] [place] [address] Consulting Provider Optometry 11/25/20 Roselia Abernathy MD [address] [place] [address] Obstetrics and Gynecology 11/25/20 documented as of this encounter
--- OUTSIDE RECORDS SUMMARY | 2025-06-19 16:12 | XMS_ITS | Encounter Summary ---
Author Organization [facility] Address [address] [place] [address] Care Team Providers Care Performance Improvement Manager Name Role Phone Gayatri George APRN Primary Care Provider [phone] Neva Velásquez RN Unavailable Albaro Kellogg MD Unavailable Aging, [place] For [facility] Unavailable Ralph Wilcox MD Unavailable Otilia Paulson OD Unavailable [phone] Roselia Abernathy MD Unavailable [phone] Gayatri George APRN Primary Care Provider Reason for Visit * Reason Comments Medication Refill Encounter Details Date Type Department Care Team (Late st Contact Info) Description 08/17/2019 Refill [facility] Endocrinology [address] [phone] Albaro Kellogg MD [address] [place] [address] [phone] Type II or unspecified type diabetes mellitus [...] uncontrolled documented in this encounter Care Teams Performance Improvement Manager Relationship Specialty Start Date End Date Gayatri George APRN PCP - General Family Medicine 07/17/18 11/17/20 Gayatri George APRN PCP - General Family Medicine 11/25/20 01/20/21 Neva Velásquez, JAMAR [address] [address] [facility] Community Carton Marker Machine 11/29/18 08/15/21 Albaro Kellogg MD [address] [place] [address] Physician Endocrinology 08/01/19 11/17/20 Aging, [facility] 02/04/20 Ralph Wilcox MD [address] [place] [address] Gastroenterology 11/25/20 Otilia Paulson OD [address] [place] [address] Consulting Provider Optometry 11/25/20 Roselia Abernathy MD [address] [place] [address] Obstetrics and Gynecology 11/25/20 documented as of this encounter
--- OUTSIDE RECORDS SUMMARY | 2025-06-19 16:12 | XMS_ITS | Encounter Summary ---
Author Organization [facility] Address [address] [place] [address] Care Team Providers Care Dental Scheduler Name Role Phone Alison Aguirre APRN Primary Care Provider [phone] Gurjit Baum MD Primary Care Provider [phone] Alison Aguirre APRN Primary Care Provider [phone] Soila Pineda Unavailable [phone] Gayatri George APRN Primary Care Provider Neva Velásquez RN Unavailable Albaro Kellogg MD Unavailable Aging, [facility] Unavailable [phone] Ralph Wilcox MD Unavailable [phone] Otilia Paulson OD Unavailable Roselia Abernathy MD Unavailable [phone] Gayatri George APRN Primary Care Provider [phone] Gayatri George APRN Unavailable [phone] Encounter Details Date Type Department Care Team (Late st Contact Info) Description 09/12/2017 Scanned Document [address] [phone] Alison Aguirre APRN [address] [place] [address] Social History Tobacco Use Types Packs/Day Years [...] on filedocumented in this encounter Care Teams Dental Scheduler Relationship Specialty Start Date End Date Alison Aguirre APRN PCP - General Internal Medicine 06/06/17 10/15/17 Gurjit Baum MD [address] [place] [address] PCP - General Internal Medicine 10/16/17 10/23/17 Alison Aguirre APRN PCP - General Internal Medicine 10/24/17 07/16/18 Gayatri George APRN [address] [place] [address] [address] PCP - General Family Medicine 07/17/18 11/17/20 Gayatri George APRN [address] [place] [address] [phone] PCP - General Family Medicine 11/25/20 01/20/21 Gayatri George APRN [address] [place] [address] PCP - [place] Medicare Attributed 03/02/19 06/01/19 Soila Pineda, REGISTRATION SPECIALIST [address] [place] [address] [facility] Garment Sewer Hand 05/08/18 11/26/18 Neva Velásquez, RN [address] [place] [address] [facility] Community Customer Support Technician 11/29/18 08/15/21 Albaro Kellogg MD [address] [place] [address] Physician Endocrinology 08/01/19 11/17/20 Aging, [place] For [facility] 02/04/20 Ralph Wilcox MD [address] [place] [address] Gastroenterology 11/25/20 Otilia Paulson OD [address] [place] [address] Consulting Provider Optometry 11/25/20 Roselia Abernathy MD [address] [place] [address] Obstetrics and Gynecology 11/25/20 documented as of this encounter
--- OUTSIDE RECORDS SUMMARY | 2025-06-19 16:12 | XMS_ITS | Encounter Summary ---
Author Organization [facility] Address [address] [place] [address] Care Team Providers Care Faucets Assembler Name Role Phone Alison Aguirre APRN Primary Care Provider [phone] Gurjit Baum MD Primary Care Provider [phone] Alison Aguirre APRN Primary Care Provider [phone] Soila Pineda Unavailable [phone] Gayatri George APRN Primary Care Provider Neva Velásquez RN Unavailable Albaro Kellogg MD Unavailable Aging, [place] [facility] Unavailable +[phone] Ralph Wilcox MD Unavailable [phone] Otilia Paulson OD Unavailable [phone] Roselia Abernathy MD Unavailable [phone] Gayatri George APRN Primary Care Provider [phone] Gayatri George APRN Unavailable [phone] Reason for Visit * Reason Comments Medication Refill Encounter Details Date Type Department Care Team (Late st Contact Info) Description 07/15/[address] [address] Alison Aguirre APRN [address] [place] [address] Hypertension, unspecified type Social History Tobacco Use [...] type documented in this encounter Care Teams Faucets Assembler Relationship Specialty Start Date End Date Alison Aguirre APRN PCP - General Internal Medicine 06/06/17 10/15/17 Gurjit Baum MD [address] [place] [address] PCP - General Internal Medicine 10/16/17 10/23/17 Alison Aguirre APRN PCP - General Internal Medicine 10/24/17 07/16/18 Gayatri George APRN [address] [id number] PCP - General Family Medicine 07/17/18 11/17/20 Gayatri George APRN [address] [place] [id number] PCP - General Family Medicine 11/25/20 01/20/21 Gayatri George APRN [address] [place] [address] PCP - United Medicare Attributed 03/02/19 06/01/19 Soila Pineda, NETWORK SUPPORT ANALYST [address] [place] [address] ICP PCMH+ Tools Administrator 05/08/18 11/26/18 Neva Velásquez, RN [address] [place] [address] ICP Community Agriculture Extension Specialist 11/29/18 08/15/21 Albaro Kellogg MD [address] [place] [address] Physician Endocrinology 08/01/19 11/17/20 [facility], [place] [facility] 02/04/20 Ralph Wilcox MD [address] [address] Gastroenterology 11/25/20 Otilia Paulson OD [address] [place] [address] Consulting Provider Optometry 11/25/20 Roselia Abernathy MD [address] [place] [address] Obstetrics and Gynecology 11/25/20 documented as of this encounter
--- OUTSIDE RECORDS SUMMARY | 2025-06-19 16:12 | XMS_ITS | Encounter Summary ---
Author Organization [facility] Address [address] [place] [address] Care Team Providers Care Merchandising Coordinator Name Role Phone Gayatri George APRN Primary Care Provider [phone] Neva Velásquez RN Unavailable Albaro Kellogg MD Unavailable Aging, [facility] Unavailable Ralph Wilcox MD Unavailable Otilia Paulson OD Unavailable Roselia Abernathy MD Unavailable Gayatri George APRN Primary Care Provider Encounter Details Date Type Department Care Team (Late st Contact Info) Description 09/18/2019 Scanned Document [address] [place] [id number] Gayatri George APRN [address] [place] [address] Social History Tobacco Use Types Packs/Day Years [...] filedocumented in this encounter Care Teams Merchandising Coordinator Relationship Specialty Start Date End Date Gayatri George APRN PCP - General Family Medicine 07/17/18 11/17/20 Gayatri George APRN PCP - General Family Medicine 11/25/20 01/20/21 Neva Velásquez, JAMAR [address] [address] [facility] Community Knot Saw Operator 11/29/18 08/15/21 Albaro Kellogg MD [address] [place] [address] Physician Endocrinology 08/01/19 11/17/20 Aging, [facility] 02/04/20 Ralph Wilcox MD [address] [place] [address] Gastroenterology 11/25/20 Otilia Paulson OD [address] [place] [address] Consulting Provider Optometry 11/25/20 Roselia Abernathy MD [address] [place] [address] Obstetrics and Gynecology 11/25/20 documented as of this encounter
--- OUTSIDE RECORDS SUMMARY | 2025-06-19 16:12 | XMS_ITS | Encounter Summary ---
Author Organization [facility] Address [address] [place] [address] Care Team Providers Care Manager Of Learning Name Role Phone Alison Aguirre APRN Primary Care Provider Soila Pineda Unavailable [phone] Gayatri George APRN Primary Care Provider Neva Velásquez RN Unavailable Albaro Kellogg MD Unavailable Aging, [place] [facility] Unavailable [phone] Ralph Wilcox MD Unavailable [phone] Otilia Paulson OD Unavailable [phone] Roselia Abernathy MD Unavailable [phone] Gayatri George APRN Primary Care Provider Gayatri George APRN Unavailable [phone] Encounter Details Date Type Department Care Team (Late st Contact Info) Description 02/27/2018 Scanned Document [facility] Podiatric Surgery [place] 85 [facility] [address] [place] [address] Jorge Quiñones DPM 201 [facility] [address] [place] [address] Social History Tobacco Use Types Packs/Day Years [...] on filedocumented in this encounter Care Teams Manager Of Learning Relationship Specialty Start Date End Date Alison Aguirre APRN PCP - General Internal Medicine 10/24/17 07/16/18 Gayatri George, CUSTOMER SALES DISTRIBUTOR [address] [facility] 4 [place] [address] PCP - General Family Medicine 07/17/18 11/17/20 Gayatri George, CUSTOMER SALES DISTRIBUTOR [address] 4 [place] [address] PCP - General Family Medicine 11/25/20 01/20/21 Gayatri George, CUSTOMER SALES DISTRIBUTOR 30 [place] [address] PCP - United Medicare Attributed 03/02/19 06/01/19 Soila Pineda, PHARMACY SALESPERSON [address] 4 [place] [address] [facility]+ Disaster Recovery Consultant 05/08/18 11/26/18 Neva Velásquez, RN [address] [facility] 4 [place] [address] [facility] Community Farmworker Vegetable 11/29/18 08/15/21 Albaro Kellogg MD [address] [place] [address] Physician Endocrinology 08/01/19 11/17/20 Aging, [facility] 02/04/20 Ralph Wilcox MD [address] [address] Gastroenterology 11/25/20 [place] [address] [place] [address] Consulting Provider Optometry 11/25/20 Roselia Abernathy MD [address] [place] [address] Obstetrics and Gynecology 11/25/20 documented as of this encounter
--- OUTSIDE RECORDS SUMMARY | 2025-06-19 16:12 | XMS_ITS | Encounter Summary ---
Author Organization [facility] Address [address] [place] [address] Care Team Providers Care Business Analyst Project Manager Name Role Phone Soila Pineda MSW Unavailable [phone] Gayatri George APRN Primary Care Provider [phone] Neva Velásquez RN Unavailable Albaro Kellogg MD Unavailable Aging, [place] [facility] Unavailable [phone] Ralph Wilcox MD Unavailable [phone] Otilia Paulson OD Unavailable [phone] Roselia Abernathy MD Unavailable Gayatri George APRN Primary Care Provider [phone] Gayatri George APRN Unavailable [phone] Encounter Details Date Type Department Care Team (Late st Contact Info) Description 09/11/2018 Scanned Document [address] [place] [phone] Provider, External, [address] [place] [address] Social History Tobacco Use Types Packs/Day Years [...] filedocumented in this encounter Care Teams Business Analyst Project Manager Relationship Specialty Start Date End Date Gayatri George, PSYCHIC READER [address] [place] [address] PCP - General Family Medicine 07/17/18 11/17/20 Gayatri George, PSYCHIC READER [address] [address] PCP - General Family Medicine 11/25/20 01/20/21 Gayatri George, PSYCHIC READER 30 [place] [address] PCP - United Medicare Attributed 03/02/19 06/01/19 Soila Pineda, FBI INVESTIGATOR [address] 4 [place] [address] [facility] PCM+ Tint Layer 05/08/18 11/26/18 Neva Velásquez, JAMAR [address] 4 [place] [address] [facility] Community Corrections Identification Technician 11/29/18 08/15/21 Albaro Kellogg MD [address] [place], [place] [address] Physician Endocrinology 08/01/19 11/17/20 [facility], [facility] 02/04/20 Ralph Wilcox MD [address] [place] [address], [place] [address] Gastroenterology 11/25/20 Otilia Paulson OD [address] [place] [address] Consulting Provider Optometry 11/25/20 Roselia Abernathy MD [address] [place] [address] Obstetrics and Gynecology 11/25/20 documented as of this encounter
--- OUTSIDE RECORDS SUMMARY | 2025-06-19 16:12 | XMS_ITS | Encounter Summary ---
Author Organization [facility] Address [address] [place] [address] Care Team Providers Care Cotton Classer Aide Name Role Phone Alison Aguirre APRN Primary Care Provider [phone] Gurjit Baum MD Primary Care Provider [phone] Alison Aguirre APRN Primary Care Provider [phone] Soila Pineda Unavailable [phone] Gayatri George APRN Primary Care Provider Neva Velásquez RN Unavailable Albaro Kellogg MD Unavailable Aging, [place] [facility] Unavailable [phone] Ralph Wilcox MD Unavailable [phone] Otilia Paulson OD Unavailable [phone] Roselia Abernathy MD Unavailable [phone] Gayatri George APRN Primary Care Provider [phone] Gayatri George APRN Unavailable [phone] Reason for Visit * Reason Comments Medication Refill Encounter Details Date Type Department Care Team (Late st Contact Info) Description 10/04/2017 [facility] [address] [phone] Alison Aguirre APRN [address] [place] [address] Hypertension, unspecified type Social History Tobacco Use [...] type documented in this encounter Care Teams Cotton Classer Aide Relationship Specialty Start Date End Date Alison Aguirre APRN PCP - General Internal Medicine 06/06/17 10/15/17 Gurjit Baum MD [address] [place] [address] PCP - General Internal Medicine 10/16/17 10/23/17 Alison Aguirre APRN PCP - General Internal Medicine 10/24/17 07/16/18 Gayatri George APRN [address] [id number] PCP - General Family Medicine 07/17/18 11/17/20 Gayatri George APRN [address] [address] PCP - General Family Medicine 11/25/20 01/20/21 Gayatri George APRN 30 [place] [address] PCP - United Medicare Attributed 03/02/19 06/01/19 Soila Pineda, SEWER SYSTEM SUPERVISOR [address] [place] [address] ICP PCMH+ Wallpaperer Helper 05/08/18 11/26/18 Neva Velásquez, RN [address] [place] [address] ICP Community Steam Trap Worker 11/29/18 08/15/21 Albaro Kellogg MD [address] [place] [address] Physician Endocrinology 08/01/19 11/17/20 Aging, [place] [facility] 02/04/20 Ralph Wilcox MD [address] [place] [address] Gastroenterology 11/25/20 Otilia Paulson OD [address] [place] [address] Consulting Provider Optometry 11/25/20 Roselia Abernathy MD [address] [place] [address] Obstetrics and Gynecology 11/25/20 documented as of this encounter
--- OUTSIDE RECORDS SUMMARY | 2025-06-19 16:12 | XMS_ITS | Encounter Summary ---
Author Organization [facility] Address [address] [place] [address] Care Team Providers Care Swine Nutritionist Name Role Phone [facility], [place] [facility] Unavailable [phone] Ralph Wilcox MD Unavailable [phone] Otilia Paulson OD Unavailable [phone] Roselia Abernathy MD Unavailable [phone] Encounter Details Date Type Department Care Team (Late st Contact Info) Description 09/26/[address] [facility] [address] [place] [phone] Garry Chung Social History Tobacco Use Types [...] on filedocumented in this encounter Care Teams Swine Nutritionist Relationship Specialty Start Date End Date [facility], [place] [facility] 02/04/20 Ralph Wilcox MD [address] [address] Gastroenterology 11/25/20 [place] [address] [place] [address] Consulting Provider Optometry 11/25/20 Roselia Abernathy MD [address] [place] [address] Obstetrics and Gynecology 11/25/20 documented as of this encounter
--- OUTSIDE RECORDS SUMMARY | 2025-06-19 16:12 | XMS_ITS | Encounter Summary ---
Author Organization [facility] Address [address] [place] [address] Care Team Providers Care Senior Sql Dba Name Role Phone Alison Aguirre APRN Primary Care Provider [phone] Gurjit Baum MD Primary Care Provider [phone] Alison Aguirre APRN Primary Care Provider [phone] Soila Pineda Unavailable [phone] Gayatri George APRN Primary Care Provider Neva Velásquez RN Unavailable Albaro Kellogg MD Unavailable Aging, [facility] Unavailable [phone] Ralph Wilcox MD Unavailable [phone] Otilia Paulson OD Unavailable [phone] Roselia Abernathy MD Unavailable [phone] Gayatri George APRN Primary Care Provider [phone] Gayatri George APRN Unavailable [phone] Encounter Details Date Type Department Care Team (Late st Contact Info) Description 08/16/2017 Scanned Document [address] [address] Alison Aguirre APRN [address] [place] [address] Social History Tobacco Use Types Packs/Day Years [...] filedocumented in this encounter Care Teams Senior Sql Dba Relationship Specialty Start Date End Date Alison Aguirre APRN PCP - General Internal Medicine 06/06/17 10/15/17 Gurjit Baum MD [address] [place] [address] PCP - General Internal Medicine 10/16/17 10/23/17 Alison Aguirre APRN PCP - General Internal Medicine 10/24/17 07/16/18 Gayatri George APRN [address] [address] PCP - General Family Medicine 07/17/18 11/17/20 Gayatri George APRN [address] [id number] PCP - General Family Medicine 11/25/20 01/20/21 Gayatri George APRN [address] [place] [address] PCP - United Medicare Attributed 03/02/19 06/01/19 Soila Pineda, PRIZE COORDINATOR [address] [place] [address] ICP PCMH+ Key Account Manager 05/08/18 11/26/18 Neva Velásquez, RN [address] 4 [place] [address] ICP Community Filtering Machine Tender Helper 11/29/18 08/15/21 Albaro Kellogg MD [address] [place] [address] Physician Endocrinology 08/01/19 11/17/20 Aging, [place] [facility] 02/04/20 Ralph Wilcox MD [address] [place] [address] Gastroenterology 11/25/20 Otilia Paulson OD [address] [place] [address] Consulting Provider Optometry 11/25/20 Roselia Abernathy MD [address] [place] [address] Obstetrics and Gynecology 11/25/20 documented as of this encounter
--- OUTSIDE RECORDS SUMMARY | 2025-06-19 16:12 | XMS_ITS | Encounter Summary ---
Author Organization [facility] Address [address] [place] [address] Care Team Providers Care Locksmith Helper Name Role Phone Alison Aguirre APRN Primary Care Provider [phone] Gurjit Baum MD Primary Care Provider [phone] Alison Aguirre APRN Primary Care Provider [phone] Soila Pineda Unavailable [phone] Gayatri George APRN Primary Care Provider Neva Velásquez RN Unavailable Albaro Kellogg MD Unavailable Aging, [facility] Unavailable +[phone] Ralph Wilcox MD Unavailable [phone] Otilia Paulson OD Unavailable [phone] Roselia Abernathy MD Unavailable [phone] Gayatri George APRN Primary Care Provider [phone] Gayatri George APRN Unavailable [phone] Encounter Details Date Type Department Care Team (Late st Contact Info) Description 07/11/2017 Scanned Document [address] [address] Alison Aguirre APRN [address] [place] [address] Social History Tobacco Use Types Packs/Day Years [...] on filedocumented in this encounter Care Teams Locksmith Helper Relationship Specialty Start Date End Date Alison Aguirre APRN PCP - General Internal Medicine 06/06/17 10/15/17 Gurjit Baum MD [address] [place] [address] PCP - General Internal Medicine 10/16/17 10/23/17 Alison Aguirre APRN PCP - General Internal Medicine 10/24/17 07/16/18 Gayatri George APRN [address] [address] PCP - General Family Medicine 07/17/18 11/17/20 Gayatri George APRN [address] [id number] PCP - General Family Medicine 11/25/20 01/20/21 Gayatri George APRN [address] [place] [address] PCP - United Medicare Attributed 03/02/19 06/01/19 Soila Pineda, BAKER BISCUIT [address] [place] [address] ICP PCMH+ Munitions Worker 05/08/18 11/26/18 Neva Velásquez, RN [address] [place] [address] ICP Community Back Hoe Operator 11/29/18 08/15/21 Albaro Kellogg MD [address] [place] [address] Physician Endocrinology 08/01/19 11/17/20 Aging, [place] [facility] 02/04/20 Ralph Wilcox MD [address] [place] [address] Gastroenterology 11/25/20 Otilia Paulson OD [address] [place] [address] Consulting Provider Optometry 11/25/20 Roselia Abernathy MD [address] [place] [address] Obstetrics and Gynecology 11/25/20 documented as of this encounter
--- OUTSIDE RECORDS SUMMARY | 2025-06-19 16:12 | XMS_ITS | Encounter Summary ---
Author Organization [facility] Address [address] [place] [address] Care Team Providers Care Director Of Field Service Name Role Phone Alison Aguirre APRN Primary Care Provider [phone] Soila Pineda Unavailable [phone] Gayatri George APRN Primary Care Provider Neva Velásquez RN Unavailable Albaro Kellogg MD Unavailable Aging, [place] [facility] Unavailable [phone] Ralph Wilcox MD Unavailable [phone] Otilia Paulson OD Unavailable [phone] Roselia Abernathy MD Unavailable [phone] Gayatri George APRN Primary Care Provider + [phone] Gayatri George APRN Unavailable [phone] Encounter Details Date Type Department Care Team (Late st Contact Info) Description 11/09/2017 Scanned Document [facility] Heart & Vascular [place] [facility] - Cardiology [address] [place] [address] Brenda Tony MD [address] [place] [address] Social History Tobacco Use Types Packs/Day Years [...] filedocumented in this encounter Care Teams Director Of Field Service Relationship Specialty Start Date End Date Alison Aguirre APRN PCP - General Internal Medicine 10/24/17 07/16/18 Gayatri George, SUBSORTER [address] [place] [address] PCP - General Family Medicine 07/17/18 11/17/20 Gayatri George, SUBSORTER [address] [address] PCP - General Family Medicine 11/25/20 01/20/21 Gayatri George, SUBSORTER [address] [place] [address] PCP - United Medicare Attributed 03/02/19 06/01/19 Soila Pineda, HOT SHOT [address] 4 [place] [address] [facility]+ Medical Record Transcriber 05/08/18 11/26/18 Neva Velásquez, RN [address] [facility] 4 [place] [address] [facility] Community First Assist 11/29/18 08/15/21 Albaro Kellogg MD [address] [place] [address] Physician Endocrinology 08/01/19 11/17/20 Aging, [facility] 02/04/20 Ralph Wilcox MD [address] [address] Gastroenterology 11/25/20 Otilia Paulson OD [address] [place] [address] Consulting Provider Optometry 11/25/20 Roselia Abernathy MD [address] [place] [address] Obstetrics and Gynecology 11/25/20 documented as of this encounter
--- OUTSIDE RECORDS SUMMARY | 2025-06-19 16:12 | XMS_ITS | Encounter Summary ---
Author Organization [facility] Address [address] [place] [address] Care Team Providers Care Explosives Truck Driver Name Role Phone Alison Aguirre APRN Primary Care Provider Soila Pineda Unavailable [phone] Gayatri George APRN Primary Care Provider Neva Velásquez RN Unavailable Albaro Kellogg MD Unavailable Aging, [place] [facility] Unavailable [phone] Ralph Wilcox MD Unavailable [phone] Otilia Paulson OD Unavailable [phone] Roselia Abernathy MD Unavailable [phone] Gayatri George APRN Primary Care Provider Gayatri George APRN Unavailable [phone] Encounter Details Date Type Department Care Team (Late st Contact Info) Description 03/13/2018 Infusion [facility] Cancer [place] at [facility]: Outpatient Infusion Center [address] [place] [address] Gurjit Baum MD [address] [address] Social History Tobacco Use Types Packs/Day Years [...] on filedocumented in this encounter Care Teams Explosives Truck Driver Relationship Specialty Start Date End Date Alison Aguirre APRN PCP - General Internal Medicine 10/24/17 07/16/18 Gayatri George, ARTIST BLACKSMITH [address] [facility] [address] [place] [address] PCP - General Family Medicine 07/17/18 11/17/20 Gayatri George, ARTIST BLACKSMITH [address] [place] [address] PCP - General Family Medicine 11/25/20 01/20/21 Gayatri George, ARTIST BLACKSMITH [address] [place] [address] PCP - United Medicare Attributed 03/02/19 06/01/19 Soila Pineda, BUTTON MAKER [address] [place] [address] [facility]+ Negotiations Director 05/08/18 11/26/18 Neva Velásquez, RN [address] [facility] 4 [place] [address] [facility] Community Program Manager Slp 11/29/18 08/15/21 Albaro Kellogg MD [address] [place] [address] Physician Endocrinology 08/01/19 11/17/20 Aging, [facility] 02/04/20 Ralph Wilcox MD [address] [address] Gastroenterology 11/25/20 Otilia Paulson OD [address] [place] [address] Consulting Provider Optometry 11/25/20 Roselia Abernathy MD 1 [place] [address] Obstetrics and Gynecology 11/25/20 documented as of this encounter
--- OUTSIDE RECORDS SUMMARY | 2025-06-19 16:12 | XMS_ITS | Encounter Summary ---
Author Organization [facility] Address [address] [place] [address] Care Team Providers Care Enterprise Architect Name Role Phone Alison Aguirre APRN Primary Care Provider Soila Pineda Unavailable [phone] Gayatri George APRN Primary Care Provider [phone] Neva Velásquez RN Unavailable Albaro Kellogg MD Unavailable [facility], [place] [facility] Unavailable [phone] Ralph Wilcox MD Unavailable [phone] Otilia Paulson OD Unavailable [phone] Roselia Abernathy MD Unavailable [phone] Gayatri George APRN Primary Care Provider Gayatri George APRN Unavailable [phone] Reason for Visit * Reason Comments Medication Refill Encounter Details Date Type Department Care Team (Late st Contact Info) Description 05/31/2018 Refill [facility] [place] [facility] - Cardiology [address] [place] [address] Brenda Tony MD [address] [place] [address], [place] [address] Medication Refill Social History Tobacco Use Types [...] hypertension documented in this encounter Care Teams Enterprise Architect Relationship Specialty Start Date End Date Alison Aguirre APRN PCP - General Internal Medicine 10/24/17 07/16/18 Gayatri George APRN [address] [place] [id number] PCP - General Family Medicine 07/17/18 11/17/20 Gayatri George APRN [address] [place] [address] PCP - General Family Medicine 11/25/20 01/20/21 Gayatri George APRN [address] [place] [address] PCP - United Medicare Attributed 03/02/19 06/01/19 Soila Pineda, STENOTYPE MACHINE OPERATOR [address] [place] [address] ICP PCMH+ Float Nurse 05/08/18 11/26/18 Neva Velásquez, RN [address] [place] [address] ICP Community Pump Servicer Supervisor 11/29/18 08/15/21 Albaro Kellogg MD [address] [place] [address] Physician Endocrinology 08/01/19 11/17/20 [facility], [place] [facility] 02/04/20 Ralph Wilcox MD [address] [place] [address] Gastroenterology 11/25/20 Otilia Paulson OD [address] [place] [address] Consulting Provider Optometry 11/25/20 Roselia Abernathy MD [address] [place] [address] Obstetrics and Gynecology 11/25/20 documented as of this encounter
--- OUTSIDE RECORDS SUMMARY | 2025-06-19 16:12 | XMS_ITS | Encounter Summary ---
Author Organization [facility] Address [address] [place] [address] Care Team Providers Care Applications Sales Representative Name Role Phone Gayatri George APRN Primary Care Provider [phone] Neva Velásquez RN Unavailable Albaro Kellogg MD Unavailable A[facility], [facility] Unavailable Ralph Wilcox MD Unavailable Otilia Paulson OD Unavailable [phone] Roselia Abernathy MD Unavailable Gayatri George APRN Primary Care Provider [phone] Gayatri George APRN Unavailable [phone] Encounter Details Date Type Department Care Team (Late st Contact Info) Description 02/14/2019 Scanned Document [facility] [address] [place] [id number] Ralph Wilcox MD [address] [place] [address], [place] [address] Social History Tobacco Use Types Packs/Day Years [...] on filedocumented in this encounter Care Teams Applications Sales Representative Relationship Specialty Start Date End Date Gayatri George APRN PCP - General Family Medicine 07/17/18 11/17/20 Gayatri George APRN PCP - General Family Medicine 11/25/20 01/20/21 Gayatri George APRN 30 [place] [address] PCP - United Medicare Attributed 03/02/19 06/01/19 Neva Velásquez, JAMAR [address] [facility] 4 [place] [address] [facility] Community Bow Maker Production 11/29/18 08/15/21 Albaro Kellogg MD [address] [place] [address] Physician Endocrinology 08/01/19 11/17/20 [facility], [facility] 02/04/20 Ralph Wilcox MD [address] [place] [address] Gastroenterology 11/25/20 Otilia Paulson OD [address] [place] [address] Consulting Provider Optometry 11/25/20 Roselia Abernathy MD [address] [place] [address] Obstetrics and Gynecology 11/25/20 documented as of this encounter
--- OUTSIDE RECORDS SUMMARY | 2025-06-19 16:12 | XMS_ITS | Encounter Summary ---
Author Organization [facility] Address [address] [place] [address] Care Team Providers Care Foster Care Social Worker Name Role Phone Alison Aguirre APRN Primary Care Provider [phone] Soila Pineda Unavailable [phone] Gayatri George APRN Primary Care Provider [phone] Neva Velásquez RN Unavailable Albaro Kellogg MD Unavailable Aging, [place] [facility] Unavailable [phone] Ralph Wilcox MD Unavailable [phone] Otilia Paulson OD Unavailable [phone] Roselia Abernathy MD Unavailable [phone] Gayatri George APRN Primary Care Provider Gayatri George APRN Unavailable [phone] Encounter Details Date Type Department Care Team (Late st Contact Info) Description 02/01/2018 Scanned Document [address] [place] [address] Provider, Generic Social History Tobacco [...] on filedocumented in this encounter Care Teams Foster Care Social Worker Relationship Specialty Start Date End Date Alison Aguirre APRN PCP - General Internal Medicine 10/24/17 07/16/18 Gayatri George, PATIENT ACCOUNT REPRESENTATIVE [address] y [address] [address] PCP - General Family Medicine 07/17/18 11/17/20 Gayatri George, PATIENT ACCOUNT REPRESENTATIVE [address] y [address] [id number] PCP - General Family Medicine 11/25/20 01/20/21 Gayatri George, PATIENT ACCOUNT REPRESENTATIVE 30 [place] [address] PCP - United Medicare Attributed 03/02/19 06/01/19 Soila Pineda, BEAN SNAPPER [address] y [address] [address] [facility] PCM+ Conveyor Tender Concrete Mixing Plant 05/08/18 11/26/18 Neva Velásquez, RN [address] y [address] [address] [facility] Community Ticketing Agent 11/29/18 08/15/21 Albaro Kellogg MD [address] [place], [place] [address] Physician Endocrinology 08/01/19 11/17/20 Aging, [facility] 02/04/20 Ralph Wilcox MD [address] [place], [place] [address] Gastroenterology 11/25/20 Otilia Paulson OD [address] [place] [address] Consulting Provider Optometry 11/25/20 Roselia Abernathy MD [address] [place] [address] Obstetrics and Gynecology 11/25/20 documented as of this encounter
--- OUTSIDE RECORDS SUMMARY | 2025-06-19 16:12 | XMS_ITS | Encounter Summary ---
Author Organization [facility] Address [address] [place] [address] Care Team Providers Care Electrical Engineering Designer Name Role Phone Alison Aguirre APRN Primary Care Provider [phone] Gurjit Baum MD Primary Care Provider [phone] Alison Aguirre APRN Primary Care Provider [phone] Soila Pineda Unavailable +[phone] Gayatri George APRN Primary Care Provider Neva Velásquez RN Unavailable Albaro Kellogg MD Unavailable Aging, [facility] Unavailable [phone] Ralph Wilcox MD Unavailable [phone] Otilia Paulson OD Unavailable [phone] Roselia Abernathy MD Unavailable [phone] Gayatri George APRN Primary Care Provider [phone] Gayatri George APRN Unavailable [phone] Encounter Details Date Type Department Care Team (Late st Contact Info) Description 07/24/2017 Scanned Document [address] [address] Alison Aguirre APRN 28 [place] [address] Social History Tobacco Use Types Packs/Day Years [...] filedocumented in this encounter Care Teams Electrical Engineering Designer Relationship Specialty Start Date End Date Alison Aguirre APRN PCP - General Internal Medicine 06/06/17 10/15/17 Gurjit Baum MD [address] [place] [address] PCP - General Internal Medicine 10/16/17 10/23/17 Alison Aguirre APRN PCP - General Internal Medicine 10/24/17 07/16/18 Gayatri George APRN [address] [address] PCP - General Family Medicine 07/17/18 11/17/20 Gayatri George APRN [address] [id number] PCP - General Family Medicine 11/25/20 01/20/21 Gayatri George APRN [address] [place] [address] PCP - United Medicare Attributed 03/02/19 06/01/19 Soila Pineda, TIP BANDING MACHINE OPERATOR [address] [place] [address] ICP PCMH+ Agency Development Manager 05/08/18 11/26/18 Neva Velásquez, RN [address] [place] [address] ICP Community Hardware Engineer 11/29/18 08/15/21 Albaro Kellogg MD [address] [place] [address] Physician Endocrinology 08/01/19 11/17/20 Aging, [place] [facility] 02/04/20 Ralph Wilcox MD [address] [place] [address] Gastroenterology 11/25/20 Otilia Paulson OD [address] [place] [address] Consulting Provider Optometry 11/25/20 Roselia Abernathy MD [address] [place] [address] Obstetrics and Gynecology 11/25/20 documented as of this encounter
--- OUTSIDE RECORDS SUMMARY | 2025-06-19 16:12 | XMS_ITS | Encounter Summary ---
Author Organization [facility] Address [address] [place] [address] Care Team Providers Care Financial Services Specialist Name Role Phone Alison Aguirre APRN Primary Care Provider Soila Pineda SENIOR COMPUTER SPECIALIST Unavailable [phone] Gayatri George APRN Primary Care Provider Neva Velásquez RN Unavailable Albaro Kellogg MD Unavailable Aging, [place] [facility] Unavailable [phone] Ralph Wilcox MD Unavailable [phone] Otilia Paulson OD Unavailable [phone] Roselia Abernathy MD Unavailable [phone] Gayatri George APRN Primary Care Provider Gayatri George APRN Unavailable [phone] Encounter Details Date Type Department Care Team (Late st Contact Info) Description 11/28/2017 Scanned Document [address] [phone] Alison Aguirre APRN 28 [place] [address] Social History Tobacco Use Types Packs/Day Years [...] on filedocumented in this encounter Care Teams Financial Services Specialist Relationship Specialty Start Date End Date Alison Aguirre APRN PCP - General Internal Medicine 10/24/17 07/16/18 Gayatri George, MAINTENANCE MECHANIC SUPERVISOR [address] [facility] 4 [place] [address] PCP - General Family Medicine 07/17/18 11/17/20 Gayatri George, MAINTENANCE MECHANIC SUPERVISOR [address] [place] [address] PCP - General Family Medicine 11/25/20 01/20/21 Gayatri George, MAINTENANCE MECHANIC SUPERVISOR 30 [place] [address] PCP - United Medicare Attributed 03/02/19 06/01/19 Soila Pineda, SENIOR COMPUTER SPECIALIST [address] [place] [address] [facility]+ Swat Team Member 05/08/18 11/26/18 Neva Velásquez, RN [address] [facility] 4 [place] [address] [facility] Community Glass Bead Maker 11/29/18 08/15/21 Albaro Kellogg MD [address] [place] [address] Physician Endocrinology 08/01/19 11/17/20 Aging, [facility] 02/04/20 Ralph Wilcox MD [address] [address] Gastroenterology 11/25/20 [place] [address] [place] [address] Consulting Provider Optometry 11/25/20 Roselia Abernathy MD 1 [place] [address] Obstetrics and Gynecology 11/25/20 documented as of this encounter
--- OUTSIDE RECORDS SUMMARY | 2025-06-19 16:12 | XMS_ITS | Encounter Summary ---
Author Organization [facility] Address [address] [place] [address] Care Team Providers Care Private Equity Associate Name Role Phone Alison Aguirre APRN Primary Care Provider [phone] Gurjit Baum MD Primary Care Provider [phone] Alison Aguirre APRN Primary Care Provider [phone] Soila Pineda Unavailable [phone] Gayatri George APRN Primary Care Provider Neva Velásquez RN Unavailable Albaro Kellogg MD Unavailable Aging, [facility] Unavailable [phone] Ralph Wilcox MD Unavailable [phone] Otilia Paulson OD Unavailable [phone] Roselia Abernathy MD Unavailable [phone] Gayatri George APRN Primary Care Provider [phone] Gayatri George APRN Unavailable [phone] Encounter Details Date Type Department Care Team (Late st Contact Info) Description 08/07/2017 Scanned Document [address] [address] Alison Aguirre APRN 28 [place] [address] Social History Tobacco Use Types Packs/Day Years [...] on filedocumented in this encounter Care Teams Private Equity Associate Relationship Specialty Start Date End Date Alison Aguirre APRN PCP - General Internal Medicine 06/06/17 10/15/17 Gurjit Baum MD [address] [place] [address] PCP - General Internal Medicine 10/16/17 10/23/17 Alison Aguirre APRN PCP - General Internal Medicine 10/24/17 07/16/18 Gayatri George APRN [address] [address] PCP - General Family Medicine 07/17/18 11/17/20 Gayatri George APRN [address] [id number] PCP - General Family Medicine 11/25/20 01/20/21 Gayatri George APRN [address] [place] [address] PCP - United Medicare Attributed 03/02/19 06/01/19 Soila Pineda, LEATHER ETCHER [address] [place] [address] ICP PCMH+ Plastic Products Sales Representative 05/08/18 11/26/18 Neva Velásquez, RN [address] 4 [place] [address] ICP Community Rotary Dryer Operator 11/29/18 08/15/21 Albaro Kellogg MD [address] [place] [address] Physician Endocrinology 08/01/19 11/17/20 Aging, [place] [facility] 02/04/20 Ralph Wilcox MD [address] [place] [address] Gastroenterology 11/25/20 Otilia Paulson OD [address] [place] [address] Consulting Provider Optometry 11/25/20 Roselia Abernathy MD [address] [place] [address] Obstetrics and Gynecology 11/25/20 documented as of this encounter
--- OUTSIDE RECORDS SUMMARY | 2025-06-19 16:12 | XMS_ITS | Encounter Summary ---
Author Organization [facility] Address [address] [place] [address] Care Team Providers Care Associate Software Engineer Name Role Phone Alison Aguirre APRN Primary Care Provider [phone] Soila Pineda Unavailable [phone] Gayatri George APRN Primary Care Provider Neva Velásquez RN Unavailable Albaro Kellogg MD Unavailable Aging, [place] [facility] Unavailable [phone] Ralph Wilcox MD Unavailable [phone] Otilia Paulson OD Unavailable [phone] Roselia Abernathy MD Unavailable [phone] Gayatri George APRN Primary Care Provider + [phone] Gayatri George APRN Unavailable [phone] Encounter Details Date Type Department Care Team (Late st Contact Info) Description 12/21/2017 Telephone [facility] [address] [place] [address] Juan Miguel Pollard MD Social History Tobacco [...] on filedocumented in this encounter Care Teams Associate Software Engineer Relationship Specialty Start Date End Date Alison Aguirre APRN PCP - General Internal Medicine 10/24/17 07/16/18 Gayatri George, BUILD ENGINEER [address] [address] PCP - General Family Medicine 07/17/18 11/17/20 Gayatri George, BUILD ENGINEER [address] [address] PCP - General Family Medicine 11/25/20 01/20/21 Gayatri George, BUILD ENGINEER 30 [place] [address] PCP - United Medicare Attributed 03/02/19 06/01/19 Soila Pineda, COMMERCIAL OCEAN CLAMMER [address] [address] [facility]+ Furniture Upholstery Mechanic 05/08/18 11/26/18 Neva Velásquez, RN [address] [address] ICP Community Timing Inspector 11/29/18 08/15/21 Albaro Kellogg MD [address] [place] [address] Physician Endocrinology 08/01/19 11/17/20 Aging, [facility] 02/04/20 Ralph Wilcox MD [address] [place] [address] Gastroenterology 11/25/20 Otilia Paulson OD [address] [place] [address] Consulting Provider Optometry 11/25/20 Roselia Abernathy MD [address] [place], [place] [address] Obstetrics and Gynecology 11/25/20 documented as of this encounter
--- OUTSIDE RECORDS SUMMARY | 2025-06-19 16:12 | XMS_ITS | Encounter Summary ---
Author Organization [facility] Address [address] [place] [address] Care Team Providers Care First Assistant Name Role Phone Alison Aguirre APRN Primary Care Provider [phone] Gurjit Baum MD Primary Care Provider [phone] Alison Aguirre APRN Primary Care Provider [phone] Soila Pineda Unavailable [phone] Gayatri George APRN Primary Care Provider Neva Velásquez RN Unavailable Albaro Kellogg MD Unavailable Aging, [facility] Unavailable [phone] Ralph Wilcox MD Unavailable [phone] Otilia Paulson OD Unavailable [phone] Roselia Abernathy MD Unavailable [phone] Gayatri George APRN Primary Care Provider [phone] Gayatri George APRN Unavailable [phone] Encounter Details Date Type Department Care Team (Late st Contact Info) Description 06/28/2017 Scanned Document [address] [address] Alison Aguirre APRN [address] [place] [address] Social History Tobacco Use Types Packs/Day Years [...] on filedocumented in this encounter Care Teams First Assistant Relationship Specialty Start Date End Date Alison Aguirre APRN PCP - General Internal Medicine 06/06/17 10/15/17 Gurjit Baum MD [address] [place] [address] PCP - General Internal Medicine 10/16/17 10/23/17 Alison Aguirre APRN PCP - General Internal Medicine 10/24/17 07/16/18 Gayatri George APRN [address] [address] PCP - General Family Medicine 07/17/18 11/17/20 Gayatri George APRN [address] [id number] PCP - General Family Medicine 11/25/20 01/20/21 Gayatri George APRN [address] [place] [address] PCP - United Medicare Attributed 03/02/19 06/01/19 Soila Pineda, SAS DEVELOPER ANALYST [address] [place] [address] ICP PCMH+ Reach Truck Operator 05/08/18 11/26/18 Neva Velásquez, RN [address] [place] [address] ICP Community Final Tester 11/29/18 08/15/21 Albaro Kellogg MD [address] [place] [address] Physician Endocrinology 08/01/19 11/17/20 Aging, [place] [facility] 02/04/20 Ralph Wilcox MD [address] [place] [address] Gastroenterology 11/25/20 Otilia Paulson OD [address] [place] [address] Consulting Provider Optometry 11/25/20 Roselia Abernathy MD [address] [place] [address] Obstetrics and Gynecology 11/25/20 documented as of this encounter
--- OUTSIDE RECORDS SUMMARY | 2025-06-19 16:12 | XMS_ITS | Encounter Summary ---
Author Organization [facility] Address [address] [place] [address] Care Team Providers Care Threat Monitoring Analyst Name Role Phone Gayatri George APRN Primary Care Provider [phone] Neva Velásquez RN Unavailable Albaro Kellogg MD Unavailable Aging, [facility] Unavailable Ralph Wilcox MD Unavailable Otilia Paulson OD Unavailable [phone] Roselia Abernathy MD Unavailable Gayatri George COAGULANT DIPPER Primary Care Provider [phone] Gayatri George APRN Unavailable [phone] Reason for Visit * Reason Comments Medication Refill Encounter Details Date Type Department Care Team (Late st Contact Info) Description 03/18/[address] [place] [phone] Gayatri George, COAGULANT DIPPER [address] [place] [address] Moderate persistent asthma, unspecified whether complicated Social [...] complicated documented in this encounter Care Teams Threat Monitoring Analyst Relationship Specialty Start Date End Date Gayatri George APRN PCP - General Family Medicine 07/17/18 11/17/20 Gayatri George APRN PCP - General Family Medicine 11/25/20 01/20/21 Gayatri George APRN 30 [place] [address] PCP - [place] Medicare Attributed 03/02/19 06/01/19 Neva Velásquez, JAMAR [address] [address] [facility] Community Coil Former 11/29/18 08/15/21 Albaro Kellogg MD [address] [place] [address] Physician Endocrinology 08/01/19 11/17/20 Aging, [facility] 02/04/20 Ralph Wilcox MD [address] [address] Gastroenterology 11/25/20 Otilia Paulson OD [address] [place] [address] Consulting Provider Optometry 11/25/20 Roselia Abernathy MD [address] [place] [address] Obstetrics and Gynecology 11/25/20 documented as of this encounter
--- OUTSIDE RECORDS SUMMARY | 2025-06-19 16:12 | XMS_ITS | Encounter Summary ---
Author Organization [facility] Address [address] [place] [address] Care Team Providers Care Digital Asset Manager Name Role Phone Alison Aguirre APRN Primary Care Provider [phone] Gurjit Baum MD Primary Care Provider [phone] Alison Aguirre APRN Primary Care Provider [phone] Soila Pindea Unavailable [phone] Gayatri George APRN Primary Care Provider Neva Velásquez RN Unavailable Albaro Kellogg MD Unavailable Aging, [facility] Unavailable +[phone] Ralph Wilcox MD Unavailable [phone] Otilia Paulson OD Unavailable [phone] Roselia Abernathy MD Unavailable [phone] Gayatri George APRN Primary Care Provider [phone] Gayatri George APRN Unavailable [phone] Encounter Details Date Type Department Care Team (Late st Contact Info) Description 10/10/2017 Telephone [facility] [address] [place] [phone] Juan Miguel Pollard MD Social History Tobacco [...] on filedocumented in this encounter Care Teams Digital Asset Manager Relationship Specialty Start Date End Date Alison Aguirre APRN PCP - General Internal Medicine 06/06/17 10/15/17 Gurjit Baum MD [address] [place] [address] PCP - General Internal Medicine 10/16/17 10/23/17 Alison Aguirre APRN PCP - General Internal Medicine 10/24/17 07/16/18 Gayatri George APRN [address] [address] PCP - General Family Medicine 07/17/18 11/17/20 Gayatri George APRN [address] [address] PCP - General Family Medicine 11/25/20 01/20/21 Gayatri George APRN [address] [place] [address] PCP - United Medicare Attributed 03/02/19 06/01/19 Soila Pineda, POULTRY OFFAL ICER [address] [place] [address] ICP PCMH+ Senior Caregiver 05/08/18 11/26/18 Neva Velásquez, RN [address] [place] [address] ICP Community Medical Safety Director 11/29/18 08/15/21 Albaro Kellogg MD [address] [place] [address] Physician Endocrinology 08/01/19 11/17/20 Aging, [facility] 02/04/20 Ralph Wilcox MD [address] [address] Gastroenterology 11/25/20 Otilia Paulson OD [facility] [place] [address] Consulting Provider Optometry 11/25/20 Roselia Abernathy MD [address] [place] [address] Obstetrics and Gynecology 11/25/20 documented as of this encounter
--- OUTSIDE RECORDS SUMMARY | 2025-06-19 16:12 | XMS_ITS | Encounter Summary ---
Author Organization [facility] Address [address] [place] [address] Care Team Providers Care Port Drier Name Role Phone Gayatri George APRN Primary Care Provider [phone] Neva Velásquez RN Unavailable Albaro Kellogg MD Unavailable Aging, [facility] Unavailable [phone] Ralph Wilcox MD Unavailable Otilia Paulson OD Unavailable [phone] Roselia Abernathy MD Unavailable [phone] Gayatri George APRN Primary Care Provider Gayatri George APRN Unavailable [phone] Encounter Details Date Type Department Care Team (Late st Contact Info) Description 03/13/2019 Scanned Document [facility] Endocrinology [address] [phone] Qi Aponte PA [address] [place] [address] [phone] Social History Tobacco Use Types Packs/Day Years [...] on filedocumented in this encounter Care Teams Port Drier Relationship Specialty Start Date End Date Gayatri George APRN PCP - General Family Medicine 07/17/18 11/17/20 Gayatri George APRN PCP - General Family Medicine 11/25/20 01/20/21 Gayatri George APRN [address] [place] [address] PCP - [place] Medicare Attributed 03/02/19 06/01/19 Neva Velásquez, RN [address] [facility] 4 [place] [address] [facility] Community Stone Sandblaster 11/29/18 08/15/21 Albaro Kellogg MD [address] [place] [address] Physician Endocrinology 08/01/19 11/17/20 [facility], [place] [facility] 02/04/20 Ralph Wilcox MD [address] [place] [address] Gastroenterology 11/25/20 Otilia Paulson OD [address] [place] [address] Consulting Provider Optometry 11/25/20 Roselia Abernathy MD [address] [place] [address] Obstetrics and Gynecology 11/25/20 documented as of this encounter
--- OUTSIDE RECORDS SUMMARY | 2025-06-19 16:12 | XMS_ITS | Encounter Summary ---
Author Organization [facility] Address [address] [place] [address] Care Team Providers Care Consumer Services Consultant Name Role Phone Gayatri George APRN Primary Care Provider [phone] Neva Velásquez RN Unavailable Albaro Kellogg MD Unavailable Aging, [facility] Unavailable Ralph Wilcox MD Unavailable Otilia Paulson OD Unavailable [phone] Roselia Abernathy MD Unavailable Gayatri George APRN Primary Care Provider [phone] Gayatri George APRN Unavailable [phone] Encounter Details Date Type Department Care Team (Late st Contact Info) Description 12/10/2018 Scanned Document [facility] [address] [place] [phone] Ralph Wilcox MD [address] [place] [address], [place] [address] Social History Tobacco Use Types Packs/Day Years [...] on filedocumented in this encounter Care Teams Consumer Services Consultant Relationship Specialty Start Date End Date Gayatri George APRN PCP - General Family Medicine 07/17/18 11/17/20 Gayatri George APRN PCP - General Family Medicine 11/25/20 01/20/21 Gayatri George APRN 30 [place] [address] PCP - [place] Medicare Attributed 03/02/19 06/01/19 Neva Velásquez, RN [address] [address] [facility] Community Material Checker 11/29/18 08/15/21 Albaro Kellogg MD [address] [place] [address] Physician Endocrinology 08/01/19 11/17/20 Aging, [place] [facility] 02/04/20 Ralph Wilcox MD [address] [place] [address] Gastroenterology 11/25/20 Otilia Paulson OD [address] [place] [address] Consulting Provider Optometry 11/25/20 Roselia Abernathy MD [address] [place] [address] Obstetrics and Gynecology 11/25/20 documented as of this encounter
--- OUTSIDE RECORDS SUMMARY | 2025-06-19 16:12 | XMS_ITS | Encounter Summary ---
Author Organization [facility] Address [address] [place] [address] Care Team Providers Care Balance Screwhead Polisher Name Role Phone Alison Aguirre APRN Primary Care Provider [phone] Gurjit Baum MD Primary Care Provider [phone] Alison Aguirre APRN Primary Care Provider [phone] Soila Pineda Unavailable [phone] Gayatri George APRN Primary Care Provider Neva Velásquez RN Unavailable Albaro Kellogg MD Unavailable Aging, [facility] Unavailable [phone] Ralph Wilcox MD Unavailable [phone] Otilia Paulson OD Unavailable [phone] Roselia Abernathy MD Unavailable [phone] Gayatri George APRN Primary Care Provider [phone] Gayatri George APRN Unavailable [phone] Encounter Details Date Type Department Care Team (Late st Contact Info) Description 09/18/2017 Scanned Document [address] [address] Provider, Generic Social History Tobacco Use Types [...] on filedocumented in this encounter Care Teams Balance Screwhead Polisher Relationship Specialty Start Date End Date Alison Aguirre APRN PCP - General Internal Medicine 06/06/17 10/15/17 Gurjit Baum MD [address] [place] [address] PCP - General Internal Medicine 10/16/17 10/23/17 Alison Aguirre APRN PCP - General Internal Medicine 10/24/17 07/16/18 Gayatri George APRN [address] [place] [address] PCP - General Family Medicine 07/17/18 11/17/20 Gayatri George APRN [address] [place] [address] PCP - General Family Medicine 11/25/20 01/20/21 Gayatri George APRN [address] [place] [address] PCP - [place] Medicare Attributed 03/02/19 06/01/19 Soila Pineda, FUNCTIONAL ARCHITECT [address] [place] [address] [facility] PC[facility]+ Stereotype Finisher 05/08/18 11/26/18 Neva Velásquez, RN [address] [place] [address] [facility] Community Bareback Rider 11/29/18 08/15/21 Albaro Kellogg MD [address] [place] [address] Physician Endocrinology 08/01/19 11/17/20 Aging, [facility] 02/04/20 Ralph Wilcox MD [address] [place] [address] Gastroenterology 11/25/20 Otilia Paulson OD [address] [place] [address] Consulting Provider Optometry 11/25/20 Roselia Abernathy MD 1 [place] [address] Obstetrics and Gynecology 11/25/20 documented as of this encounter
--- OUTSIDE RECORDS SUMMARY | 2025-06-19 16:12 | XMS_ITS | Encounter Summary ---
Author Organization [facility] Address [address] [place] [address] Care Team Providers Care Strap Stitcher Name Role Phone Soila Pineda Unavailable [phone] Gayatri George APRN Primary Care Provider [phone] Neva Velásquez RN Unavailable Albaro Kellogg MD Unavailable Aging, [place] For [facility] Unavailable [phone] Ralph Wilcox MD Unavailable [phone] Otilia Paulson OD Unavailable [phone] Roselia Abernathy MD Unavailable [phone] Gayatri George APRN Primary Care Provider [phone] Gayatri George APRN Unavailable [phone] Encounter Details Date Type Department Care Team (Late st Contact Info) Description 10/10/2018 Scanned Document [facility] [address] [place] [address] Pulmonary, Scan Social History Tobacco Use Types [...] on filedocumented in this encounter Care Teams Strap Stitcher Relationship Specialty Start Date End Date Gayatri George, DYE REEL OPERATOR [address] [place] [address] PCP - General Family Medicine 07/17/18 11/17/20 Gayatri George, DYE REEL OPERATOR [address] [address] PCP - General Family Medicine 11/25/20 01/20/21 Gayatri George, DYE REEL OPERATOR 30 [place] [address] PCP - [place] Medicare Attributed 03/02/19 06/01/19 Soila Pineda, LEGAL ARCHIVIST [address] [address] ICP PCMH+ Healthcare Science Specialist 05/08/18 11/26/18 Neva Velásquez, RN [address] [address] [facility] Community Warp Hanger 11/29/18 08/15/21 Albaro Kellogg MD [address] [place] [address] Physician Endocrinology 08/01/19 11/17/20 Aging, [facility] 02/04/20 Ralph Wilcox MD [address] [address] Gastroenterology 11/25/20 [place] [address] [place] [address] Consulting Provider Optometry 11/25/20 Roselia Abernathy MD 1 [place] [address] Obstetrics and Gynecology 11/25/20 documented as of this encounter
--- OUTSIDE RECORDS SUMMARY | 2025-06-19 16:12 | XMS_ITS | Encounter Summary ---
Author Organization [facility] Address [address] [place] [address] Care Team Providers Care Installation Tech Name Role Phone Alison Aguirre APRN Primary Care Provider Soila Pineda ANIMAL HEALTH TECHNICIAN Unavailable [phone] Gayatri George APRN Primary Care Provider Neva Velásquez RN Unavailable Albaro Kellogg MD Unavailable Aging, [place] For [facility] Unavailable [phone] Ralph Wilcox MD Unavailable [phone] Otilia Paulson OD Unavailable [phone] Roselia Abernathy MD Unavailable Gayatri George APRN Primary Care Provider Gayatri George APRN Unavailable [phone] Encounter Details Date Type Department Care Team (Late st Contact Info) Description 06/13/2018 Scanned Document [address] [phone] Alison Aguirre APRN [address] [place] [address] Social History Tobacco Use Types Packs/Day Years [...] on filedocumented in this encounter Care Teams Installation Tech Relationship Specialty Start Date End Date Alison Aguirre APRN PCP - General Internal Medicine 10/24/17 07/16/18 Gayatri George, OPERATING THEATRE TECHNICIAN [address] [facility] 4 [place] [address] PCP - General Family Medicine 07/17/18 11/17/20 Gayatri George, OPERATING THEATRE TECHNICIAN [address] [place] [address] PCP - General Family Medicine 11/25/20 01/20/21 Gayatri George, OPERATING THEATRE TECHNICIAN 30 [place] [address] PCP - [place] Medicare Attributed 03/02/19 06/01/19 Soila Pineda, ANIMAL HEALTH TECHNICIAN [address] [place] [address] [facility]+ Stay Cutter 05/08/18 11/26/18 Neva Velásquez, RN [address] [facility] 4 [place] [address] [facility] Community Alliance Consultant 11/29/18 08/15/21 Albaro Kellogg MD [address] [place] [address] Physician Endocrinology 08/01/19 11/17/20 Aging, [facility] 02/04/20 Ralph Wilcox MD [address] [address] Gastroenterology 11/25/20 [place] [address] [place] [address] Consulting Provider Optometry 11/25/20 Roselia Abernathy MD 1 [place] [address] Obstetrics and Gynecology 11/25/20 documented as of this encounter
--- OUTSIDE RECORDS SUMMARY | 2025-06-19 16:12 | XMS_ITS | Encounter Summary ---
Author Organization [facility] Address [address] [place] [address] Care Team Providers Care Catering Server Name Role Phone Gayatri George APRN Primary Care Provider [phone] eNva Velásquez RN Unavailable Albaro Kellogg MD Unavailable Aging, [place] For [facility] Unavailable Ralph Wilcox MD Unavailable [phone] Otilia Paulson OD Unavailable [phone] Roselia Abernathy MD Unavailable [phone] Gayatri George APRN Primary Care Provider Encounter Details Date Type Department Care Team (Late st Contact Info) Description 08/14/2019 Scanned Document [facility] INTERNAL MED SCAN Gayatri George APRN [address] [place] [address] Social History Tobacco Use Types Packs/Day Years [...] on filedocumented in this encounter Care Teams Catering Server Relationship Specialty Start Date End Date Gayatri George APRN PCP - General Family Medicine 07/17/18 11/17/20 Gayatri George APRN PCP - General Family Medicine 11/25/20 01/20/21 Neva Velásquez, RN [address] [facility] 4 [place] [address] [facility] Community Appellate Conferee 11/29/18 08/15/21 Albaro Kellogg MD [address] [place] [address] Physician Endocrinology 08/01/19 11/17/20 [facility], [place] [facility] 02/04/20 Ralph Wilcox MD [address] [address] Gastroenterology 11/25/20 Otilia Paulson OD [address] [place] [address] Consulting Provider Optometry 11/25/20 Roselia Abernatyh MD [address] [place] [address] Obstetrics and Gynecology 11/25/20 documented as of this encounter
--- OUTSIDE RECORDS SUMMARY | 2025-06-19 16:12 | XMS_ITS | Encounter Summary ---
Author Organization [facility] Address [address] [place] [address] Care Team Providers Care Manager Farm Name Role Phone Gayatri George APRN Primary Care Provider [phone] Neva Velásquez RN Unavailable Albaro Kellogg MD Unavailable Aging, [facility] Unavailable Ralph Wilcox MD Unavailable [phone] Otilia Paulson OD Unavailable [phone] Roselia Abernathy MD Unavailable Gayatri George APRN Primary Care Provider [phone] Gayatri George APRN Unavailable [phone] Reason for Visit * Reason Comments Medication Refill Encounter Details Date Type Department Care Team (Late st Contact Info) Description 01/15/[address] [place] [phone] Gayatri George, ANA [address] [place] [address] Gastroesophageal reflux disease, esophagitis presence not specified; [...] complicated documented in this encounter Care Teams Manager Farm Relationship Specialty Start Date End Date Gayatri George APRN PCP - General Family Medicine 07/17/18 11/17/20 Gayatri George APRN PCP - General Family Medicine 11/25/20 01/20/21 Gayatri George APRN [address] [place] [address] PCP - [place] Medicare Attributed 03/02/19 06/01/19 Neva Velásquez, JAMAR [address] [address] [facility] Community Cribbing Setter 11/29/18 08/15/21 Albaro Kellogg MD [address] [place] [address] Physician Endocrinology 08/01/19 11/17/20 Aging, [place] [facility] 02/04/20 Ralph Wilcox MD [address] [place] [address] Gastroenterology 11/25/20 Otilia Paulson OD [address] [place] [address] Consulting Provider Optometry 11/25/20 Roselia Abernathy MD [address] [place] [address] Obstetrics and Gynecology 11/25/20 documented as of this encounter
--- OUTSIDE RECORDS SUMMARY | 2025-06-19 16:12 | XMS_ITS | Encounter Summary ---
Author Organization [facility] Address [address] [place] [address] Care Team Providers Care Manager Mechanical Maintenance Name Role Phone Gurjit Baum MD Primary Care Provider [phone] Alison Aguirre APRN Primary Care Provider [phone] Soila Pineda WEB UI SOFTWARE ENGINEER Unavailable [phone] Gayatri George APRN Primary Care Provider + [phone] Neva Velásquez RN Unavailable Albaro Kellogg MD Unavailable Aging, [place] For [facility] Unavailable [phone] Ralph Wilcox MD Unavailable [phone] Otilia Paulson OD Unavailable Roselia Abernathy MD Unavailable [phone] Gayatri George APRN Primary Care Provider + [phone] Gayatri George APRN Unavailable [phone] Encounter Details Date Type Department Care Team (Late st Contact Info) Description 10/16/2017 Scanned Document [address] [address] Gurjit Baum MD [address] [place] [address] Social History Tobacco Use Types Packs/Day Years [...] filedocumented in this encounter Care Teams Manager Mechanical Maintenance Relationship Specialty Start Date End Date Gurjit Baum MD [address] [place] [address] PCP - General Internal Medicine 10/16/17 10/23/17 Alison Aguirre APRN [address] [place] [address] PCP - General Internal Medicine 10/24/17 07/16/18 Gayatri George APRN [address] [address] PCP - General Family Medicine 07/17/18 11/17/20 Gayatri George, DATA CLERK [address] [place] [address] PCP - General Family Medicine 11/25/20 01/20/21 Gayatri George, ANA 30 [place] [address] PCP - [place] Medicare Attributed 03/02/19 06/01/19 Soila Pineda, WEB UI SOFTWARE ENGINEER [address] 4 [place] [address] ICP PCMH+ Mentally Impaired Teacher 05/08/18 11/26/18 Neva Velásquez, RN [address] [place] [address] ICP Community Button Tufter 11/29/18 08/15/21 Albaro Kellogg MD [address] [place] [address] Physician Endocrinology 08/01/19 11/17/20 Aging, [facility] 02/04/20 Ralph Wilcox MD [address] [place] [address] Gastroenterology 11/25/20 Otilia Paulson OD [address] [place] [address] Consulting Provider Optometry 11/25/20 Roselia Abernathy MD [address] [place] [address] Obstetrics and Gynecology 11/25/20 documented as of this encounter
--- OUTSIDE RECORDS SUMMARY | 2025-06-19 16:12 | XMS_ITS | Encounter Summary ---
Author Organization [facility] Address [address] [place] [address] Care Team Providers Care Metal Welder Name Role Phone Soila Pineda Unavailable [phone] Gayatri George APRN Primary Care Provider [phone] Neva Velásquez RN Unavailable Albaro Kellogg MD Unavailable Aging, [place] For [facility] Unavailable [phone] Ralph Wilcox MD Unavailable [phone] Otilia Paulson OD Unavailable [phone] Roselia Abernathy MD Unavailable [phone] Gayatri George APRN Primary Care Provider [phone] Gayatri George APRN Unavailable [phone] Encounter Details Date Type Department Care Team (Late st Contact Info) Description 08/30/2018 Scanned Document [facility] Podiatric Surgery [place] 85 [facility] [address] [place] [address] Delilah Domingo, DPM [address] [facility] [address] [place] [address] Social History Tobacco Use Types Packs/Day Years [...] on filedocumented in this encounter Care Teams Metal Welder Relationship Specialty Start Date End Date Gayatri George, ANA [address] [address] PCP - General Family Medicine 07/17/18 11/17/20 Gayatri George APRN [address] [address] PCP - General Family Medicine 11/25/20 01/20/21 Gayatri George, ANA 30 [place] [address] PCP - [place] Medicare Attributed 03/02/19 06/01/19 Soila Pineda, FUNDS DEVELOPMENT DIRECTOR [address] [address] ICP PCMH+ Aircraft Load Controller 05/08/18 11/26/18 Neva Velásquez, JAMAR [address] [address] ICP Community Manager Credit Collections 11/29/18 08/15/21 Albaro Kellogg MD [address] [place] [address] Physician Endocrinology 08/01/19 11/17/20 [facility], [facility] 02/04/20 Ralph Wilcox MD [address] [place] [address], [place] [address] Gastroenterology 11/25/20 Otilia Paulson OD [address] [place] [address] Consulting Provider Optometry 11/25/20 Roselia Abernathy MD [address] [place] [address] Obstetrics and Gynecology 11/25/20 documented as of this encounter
--- OUTSIDE RECORDS SUMMARY | 2025-06-19 16:12 | XMS_ITS | Encounter Summary ---
Author Organization [facility] Address [address] [place] [address] Care Team Providers Care Insurance Follow Up Representative Name Role Phone Gayatri George APRN Primary Care Provider Neva Velásquez RN Unavailable Albaro Kellogg MD Unavailable Aging, [place] For [facility] Unavailable [phone] Ralph Wilcox MD Unavailable [phone] Otilia Paulson OD Unavailable [phone] Roselia Abernathy MD Unavailable [phone] Gayatri George APRN Primary Care Provider + [phone] Gayatri George APRN Unavailable [phone] Encounter Details Date Type Department Care Team (Late st Contact Info) Description 12/19/2018 Scanned Document [facility] OPTHALMOLOGY SCAN Social History Tobacco Use [...] filedocumented in this encounter Care Teams Insurance Follow Up Representative Relationship Specialty Start Date End Date Gayatri George APRN PCP - General Family Medicine 07/17/18 11/17/20 Gayatri George APRN PCP - General Family Medicine 11/25/20 01/20/21 Gayarti George APRN 30 [place] [address] PCP - [place] Medicare Attributed 03/02/19 06/01/19 Neva Velásquze, JAMAR [address] [address] [facility] Community Cpo 11/29/18 08/15/21 Albaro Kellogg MD [address] [place] [address] Physician Endocrinology 08/01/19 11/17/20 [facility], [facility] 02/04/20 Ralph Wilcox MD [address] [address] Gastroenterology 11/25/20 Otilia Paulson OD [address] [place] [address] Consulting Provider Optometry 11/25/20 Roselia Abernathy MD 1 [place] [address] Obstetrics and Gynecology 11/25/20 documented as of this encounter
--- OUTSIDE RECORDS SUMMARY | 2025-06-19 16:12 | XMS_ITS | Encounter Summary ---
Author Organization [facility] Address [address] [place] [address] Care Team Providers Care It Solutions Architect Name Role Phone [facility], [place] [facility] Unavailable [phone] Ralph Wilcox MD Unavailable [phone] Otilia Paulson OD Unavailable [phone] Roselia Abernathy MD Unavailable [phone] Encounter Details Date Type Department Care Team (Late st Contact Info) Description 08/21/2024 Telephone [facility] [address] [place] [id number] Garry Chung Social History Tobacco Use Types [...] on filedocumented in this encounter Care Teams It Solutions Architect Relationship Specialty Start Date End Date [facility], [place] [facility] 02/04/20 Ralph Wilcox MD [address] [address] Gastroenterology 11/25/20 [place] [address] [place] [address] Consulting Provider Optometry 11/25/20 Roselia Abernathy MD [address] [place] [address] Obstetrics and Gynecology 11/25/20 documented as of this encounter
--- OUTSIDE RECORDS SUMMARY | 2025-06-19 16:12 | XMS_ITS | Encounter Summary ---
Author Organization [facility] Address [address] [place] [address] Care Team Providers Care Char Filter Tank Tender Name Role Phone Gurjit Baum MD Primary Care Provider [phone] Alison Aguirre APRN Primary Care Provider [phone] Soila Pineda LAMINATING MACHINE OPERATOR Unavailable [phone] Gayatri George APRN Primary Care Provider + [phone] Neva Velásquez RN Unavailable Albaro Kellogg MD Unavailable Aging, [place] For [facility] Unavailable [phone] Ralph Wilcox MD Unavailable [phone] Otilia Paulson OD Unavailable [phone] Roselia Abernathy MD Unavailable [phone] Gayatri George APRN Primary Care Provider + [phone] Gayatri George APRN Unavailable [phone] Encounter Details Date Type Department Care Team (Late st Contact Info) Description 10/19/2017 Scanned Document [facility] [address] [place] [address] Provider, Generic Social History Tobacco Use Types [...] on filedocumented in this encounter Care Teams Char Filter Tank Tender Relationship Specialty Start Date End Date Gurjit Baum MD [address] [place] [address] PCP - General Internal Medicine 10/16/17 10/23/17 Alison Aguirre APRN [address] [place] [address] PCP - General Internal Medicine 10/24/17 07/16/18 Gayatri George APRN [address] [address] PCP - General Family Medicine 07/17/18 11/17/20 Gayatri George APRN [address] [address] PCP - General Family Medicine 11/25/20 01/20/21 Gayatri George APRN 30 [place] [address] PCP - United Medicare Attributed 03/02/19 06/01/19 Soila Pineda MSW [address] [place] [address] ICP PCMH+ Bottom Turning Lathe Turner 05/08/18 11/26/18 Neva Velásquez, RN [address] [place] [address] ICP Community Lathe Set Up Operator 11/29/18 08/15/21 Albaro Kellogg MD [address] [place] [address] Physician Endocrinology 08/01/19 11/17/20 Aging, [facility] 02/04/20 Ralph Wilcox MD [address] [place] [address] Gastroenterology 11/25/20 Otilia Paulson OD [address] [place] [address] Consulting Provider Optometry 11/25/20 Roselia Abernathy MD [address] [place] [address] Obstetrics and Gynecology 11/25/20 documented as of this encounter
--- OUTSIDE RECORDS SUMMARY | 2025-06-19 16:12 | XMS_ITS | Encounter Summary ---
Author Organization [facility] Address [address] [place] [address] Care Team Providers Care Patient Insurance Clerk Name Role Phone Gayatri George APRN Primary Care Provider [phone] Neva Velásquez RN Unavailable Albaro Kellogg MD Unavailable Aging, [facility] Unavailable Ralph Wilcox MD Unavailable Otilia Paulson OD Unavailable [phone] Roselia Abernathy MD Unavailable [phone] Gayatri George APRN Primary Care Provider [phone] Gayatri George APRN Unavailable [phone] Encounter Details Date Type Department Care Team (Late st Contact Info) Description 01/15/2019 Telephone [facility] Medical [facility] Neurology [address] [id number] Any Dev[place] [address] [facility] [address] [place], [place] [address] Social History Tobacco Use Types Packs/Day Years [...] WITH YOU. PT CONTACT INFORMATION IS FOLLOWS [phone] PLEASE CALL YOU DO NOT HAVE AN APT UNTIL 01/31/2019 documented in this encounter Plan of Treatment Not on file documented as of this encounter Visit Diagnoses Not on filedocumented in this encounter Care Teams Patient Insurance Clerk Relationship Specialty Start Date End Date Gayatri George APRN PCP - General Family Medicine 07/17/18 11/17/20 Gayatri George APRN PCP - General Family Medicine 11/25/20 01/20/21 Gayatri George APRN [address] [place] [address] PCP - United Medicare Attributed 03/02/19 06/01/19 Neva Velásquez, RN [address] [facility] 4 [place] [address] [facility] Community Professor Of Rhetoric 11/29/18 08/15/21 Albaro Kellogg MD [address] [place] [address] Physician Endocrinology 08/01/19 11/17/20 Aging, [place] [facility] 02/04/20 Ralph [place] MD [address] [place] [address] Gastroenterology 11/25/20 Otilia Paulson OD [address] [place] [address] Consulting Provider Optometry 11/25/20 Roselia Abernathy MD [address] [place] [address] Obstetrics and Gynecology 11/25/20 documented as of this encounter
--- OUTSIDE RECORDS SUMMARY | 2025-06-19 16:12 | XMS_ITS | Encounter Summary ---
Author Organization [facility] Address [address] [place] [address] Care Team Providers Care Community Support Worker Name Role Phone Gayatri George APRN Primary Care Provider [phone] Neva Velásquez RN Unavailable Albaro Kellogg MD Unavailable Aging, [facility] Unavailable [phone] Ralph Wilcox MD Unavailable Otilia Paulson OD Unavailable [phone] Roselia Abernathy MD Unavailable [phone] Gayatri George MANAGER AGRICULTURAL Primary Care Provider [phone] Gayatri George APRN Unavailable [phone] Reason for Visit * Reason Comments Medication Refill Encounter Details Date Type Department Care Team (Late st Contact Info) Description 03/23/[address] [place] [phone] Gayatri George, MANAGER AGRICULTURAL [address] [place] [address] Depression, unspecified depression type (Primary Dx) Social [...] Primary documented in this encounter Care Teams Community Support Worker Relationship Specialty Start Date End Date Gayatri George APRN PCP - General Family Medicine 07/17/18 11/17/20 Gayatri George APRN PCP - General Family Medicine 11/25/20 01/20/21 Gayatri George APRN [address] [place] [address] PCP - United Medicare Attributed 03/02/19 06/01/19 Neva Velásquez, RN [address] [address] [facility] Community Security System Engineer 11/29/18 08/15/21 Albaro Kellogg MD [address] [place] [address] Physician Endocrinology 08/01/19 11/17/20 Aging, [place] [facility] 02/04/20 Ralph Wilcox MD [address] [place] [address] Gastroenterology 11/25/20 Otilia Paulson OD [address] [place] [address] Consulting Provider Optometry 11/25/20 Roselia Abernathy MD [address] [place] [address] Obstetrics and Gynecology 11/25/20 documented as of this encounter
--- OUTSIDE RECORDS SUMMARY | 2025-06-19 16:12 | XMS_ITS | Encounter Summary ---
Author Organization [facility] Address [address] [place] [address] Care Team Providers Care Whale Fisherman Name Role Phone Alison Aguirre APRN Primary Care Provider [phone] Gurjit Baum MD Primary Care Provider [phone] Alison Aguirre APRN Primary Care Provider [phone] Soila Pineda Unavailable [phone] Gayatri George APRN Primary Care Provider Neva Velásquez RN Unavailable Albaro Kellogg MD Unavailable Aging, [facility] Unavailable [phone] Ralph Wilcox MD Unavailable [phone] Otilia Paulson OD Unavailable [phone] Roselia Abernathy MD Unavailable [phone] Gayatri George APRN Primary Care Provider [phone] Gayatri George APRN Unavailable [phone] Encounter Details Date Type Department Care Team (Late st Contact Info) Description 07/21/2017 Scanned Document [address] [address] Alison Aguirre APRN [address] [place] [address] Social History Tobacco Use Types Packs/Day Years [...] on filedocumented in this encounter Care Teams Whale Fisherman Relationship Specialty Start Date End Date Alison Aguirre APRN PCP - General Internal Medicine 06/06/17 10/15/17 Gurjit Baum MD [address] [place] [address] PCP - General Internal Medicine 10/16/17 10/23/17 Alison Aguirre APRN PCP - General Internal Medicine 10/24/17 07/16/18 Gayatri George APRN [address] [address] PCP - General Family Medicine 07/17/18 11/17/20 Gayatri George APRN [address] [phone] PCP - General Family Medicine 11/25/20 01/20/21 Gayatri George APRN [address] [place] [address] PCP - United Medicare Attributed 03/02/19 06/01/19 Soila Pineda, MECHANIC RECOVERY [address] [place] [address] ICP PCMH+ License Examiner 05/08/18 11/26/18 Neva Velásquez, RN [address] [place] [address] ICP Community R D Internship 11/29/18 08/15/21 Albaro Kellogg MD [address] [place] [address] Physician Endocrinology 08/01/19 11/17/20 Aging, [place] [facility] 02/04/20 Ralph [place] MD [address] [place] [address] Gastroenterology 11/25/20 Otilia Paulson OD [address] [place] [address] Consulting Provider Optometry 11/25/20 Roselia Abernathy MD [address] [place] [address] Obstetrics and Gynecology 11/25/20 documented as of this encounter
--- OUTSIDE RECORDS SUMMARY | 2025-06-19 16:12 | XMS_ITS | Encounter Summary ---
Author Organization [facility] Address [address] [place] [address] Care Team Providers Care Milk Delivery Driver Name Role Phone Soila Pineda Unavailable [phone] Gayatri George APRN Primary Care Provider [phone] Neva Velásquez RN Unavailable Albaro Kellogg MD Unavailable Aging, [place] [facility] Unavailable [phone] Ralph Wilcox MD Unavailable [phone] Otilia Paulson OD Unavailable [phone] Roselia Aberntahy MD Unavailable [phone] Gayatri George APRN Primary Care Provider [phone] Gayatri George APRN Unavailable [phone] Encounter Details Date Type Department Care Team (Late st Contact Info) Description 09/11/2018 Scanned Document [facility] [address] [place] [address] Provider, Generic Social History Tobacco Use Types [...] on filedocumented in this encounter Care Teams Milk Delivery Driver Relationship Specialty Start Date End Date Gayatri George, CORPORATE COMPLIANCE MANAGER [address] [place] [address] PCP - General Family Medicine 07/17/18 11/17/20 Gayatri George, CORPORATE COMPLIANCE MANAGER [address] [address] PCP - General Family Medicine 11/25/20 01/20/21 Gaaytri George, CORPORATE COMPLIANCE MANAGER [address] [place] [address] PCP - United Medicare Attributed 03/02/19 06/01/19 Soila Pineda, ASSEMBLIES AND INSTALLATIONS INSPECTOR [address] [address] ICP PCMH+ Space Operations Officer 05/08/18 11/26/18 Neva Velásquez, RN [address] [address] [facility] Community Cutting Machine Offbearer 11/29/18 08/15/21 Albaro Kellogg MD [address] [place] [address] Physician Endocrinology 08/01/19 11/17/20 Aging, [facility] 02/04/20 Ralph Wilcox MD [address] [address] Gastroenterology 11/25/20 [place] [address] [place] [address] Consulting Provider Optometry 11/25/20 Roselia Abernathy MD 1 [place] [address] Obstetrics and Gynecology 11/25/20 documented as of this encounter
--- OUTSIDE RECORDS SUMMARY | 2025-06-19 16:12 | XMS_ITS | Encounter Summary ---
Author Organization [facility] Address [address] [place] [address] Care Team Providers Care Oscillograph Technician Name Role Phone Soila Pineda MSW Unavailable Gayatri George APRN Primary Care Provider [phone] Neva Velásquez RN Unavailable Albaro Kellogg MD Unavailable Aging, [place] [facility] Unavailable Ralph Wilcox MD Unavailable Otilia Paulson OD Unavailable [phone] Roselia Abernathy MD Unavailable Gayatri George APRN Primary Care Provider [phone] Gayatri George APRN Unavailable [phone] Encounter Details Date Type Department Care Team (Late st Contact Info) Description 08/13/2018 Scanned Document [address] [place] [phone] Provider, External, [address] [place] [address] Social History Tobacco Use Types Packs/Day Years [...] on filedocumented in this encounter Care Teams Oscillograph Technician Relationship Specialty Start Date End Date Gayatri George, HYDROGEN CELL TENDER [address] [place] [address] PCP - General Family Medicine 07/17/18 11/17/20 Gayatri George, HYDROGEN CELL TENDER [address] [address] PCP - General Family Medicine 11/25/20 01/20/21 Gayatri George, HYDROGEN CELL TENDER [address] [place] [address] PCP - United Medicare Attributed 03/02/19 06/01/19 Soila Pineda, CASINO WORKER [address] [place] [address] [facility] PCM+ Tobacco Sprayer 05/08/18 11/26/18 Neva Velásquez, JAMAR [address] [place] [address] [facility] Community Supervisor Line Department 11/29/18 08/15/21 Albaro Kellogg MD [address] [place], [place] [address] Physician Endocrinology 08/01/19 11/17/20 [facility] 02/04/20 Ralph Wilcox MD [address] [place] [address], [place] [address] Gastroenterology 11/25/20 Otilia Paulson OD [address] [place] [address] Consulting Provider Optometry 11/25/20 Roselia Abernathy MD [address] [place] [address] Obstetrics and Gynecology 11/25/20 documented as of this encounter
--- OUTSIDE RECORDS SUMMARY | 2025-06-19 16:13 | XMS_ITS | Clinical Summary ---
Author Organization [facility] Address [address] [place] [address] Phone Care Team Providers Care Cotton Grader Name Role Phone Eli Dill Primary Care [...] 5 hours before your procedure. 4000 mL 5 Active Surgical History Surgery Date Site/Laterality Comments BYPASS GRAFT PROCEDURE: HI AMPUTATION TOE METATARSOPHALANGEAL JOINT; COMMENT: x3 OTHER [...] 03/31/2019 non bleeding small bowel avms - [place] [facility] GI Medical History Medical History Date Comments Asthma DX:Asthma Diastolic CHF ([facility]/HCC V24, [facility] V28) DX:Diastolic CHF (HCC) HTN (hypertension) DX:HTN (hyper tension) HLD (hyperlipidemia) DX:HLD (hyp erlipidemia) Diabetes mellitus ([facility] V 24, [facility] V28) DX:Diabetes mellitus (HCC) Diabetic neuropathy (CMS/HCC V24, CMS/[facility] V28) DX:Diabetic neuropathy (HCC) CKD (chronic kidney disease) , stage IV (CMS/HCC V24, CMS/HCC V28) DX:CKD (chronic kidney dise ase), stage IV (HCC); COMMENT: baseline creatinine 2.4 [...] DX:Anemia T2DM (type 2 diabetes mellit us) (CMS/HCC V24, [facility] [place] DX:T2DM (type 2 diabetes me llitus) ([facility]) Acute kidney injury superimp osed on chronic kidney disease ([facility] [place]) DX:Acute kidney i njury superimposed on chronic kidney disease ([facility]) JONH (obstructive sleep apnea) DX :JOHN (obstructive sleep apnea) DVT prophylaxis DX:DVT prophylax is Severe anemia DX:Severe anemia COPD (chronic obstructive pu lmonary disease) ([facility] [place]24, [facility] [place]) DX:COPD (chronic o bstructive pulmonary disease) ([facility]); COMMENT: not oxygen dependent Family History Medical History Relation Name Comments Diabetes Mother Heart failure Mother of [place] in her 70s Hypertension Mother Relation Name [...] Region Laterality Modality Endoscopy us Historical Provider MD GI~PROCEDURE ORDERABLES F inal Result from Last 3 Months or Most Recently Relevant to Health Maintenance Insurance [facility] MEDICARE Member Subscriber Plan / Payer (Ef fective 2020-Present) Name:Natalie Cutler Relation to Subscriber:Self Name:Natalie Cutler Payer ID:[id number] Group ID:[id number] Type:Not on file Address: [address] [address] Advance Directives Documents on File Type Date Recorded Patient Planning Technician Expl anation Health Care Decision (hx) 01/16/2022 [...] (hx) 07/24/2021 AD OLIVIER DIRECTIVE Care Teams Cotton Grader Relationship Specialty Start Date End Date Eli Dill PA PCP - General Cardiology 12/09/24
--- OUTSIDE RECORDS SUMMARY | 2025-06-19 16:13 | XMS_ITS | Encounter Summary ---
Author Organization [facility] Address [address] [place] [address] Phone Care Team Providers Care Transit Mixer Driver Name Role Phone Tommie Suarez MD Primary Care Provider Encounter Details Date Type Department Care Team (Late st Contact Info) Description 01/27/2021 Orders Only [facility] [address] [place] [address] Leann Molina RN Social History Tobacco Use [...] on filedocumented in this encounter Care Teams Transit Mixer Driver Relationship Specialty Start Date End Date Tommie Suarez MD [address] [place] [address] [place] [address] PCP - General 10/12/20 documented as of this encounter
--- OUTSIDE RECORDS SUMMARY | 2025-06-19 16:13 | XMS_ITS | Encounter Summary ---
Author Organization [facility] Address [address] [place] [address] Care Team Providers Care Millinery Blocker Name Role Phone Alison Aguirre APRN Primary Care Provider Soila Pineda FINANCIAL AID DIRECTOR Unavailable [phone] Gayatri George APRN Primary Care Provider Neva Velásquez RN Unavailable Albaro Kellogg MD Unavailable Aging, [place] For [facility] Unavailable [phone] Ralph Wilcox MD Unavailable [phone] Otilia Paulson OD Unavailable [phone] Roselia Abernathy MD Unavailable Gayatri George APRN Primary Care Provider Gayatri George APRN Unavailable [phone] Encounter Details Date Type Department Care Team (Late st Contact Info) Description 10/31/2017 Scanned Document [address] [phone] Alison Aguirre APRN [address] [place] [address] Social History Tobacco Use Types Packs/Day Years [...] on filedocumented in this encounter Care Teams Millinery Blocker Relationship Specialty Start Date End Date Alison Aguirre APRN PCP - General Internal Medicine 10/24/17 07/16/18 Gayatri George, EMISSIONS TESTING TECHNICIAN [address] [facility] 4 [place] [address] PCP - General Family Medicine 07/17/18 11/17/20 Gayatri George, EMISSIONS TESTING TECHNICIAN [address] [place] [address] PCP - General Family Medicine 11/25/20 01/20/21 Gayatri George, EMISSIONS TESTING TECHNICIAN [address] [place] [address] PCP - United Medicare Attributed 03/02/19 06/01/19 Soila Pineda, FINANCIAL AID DIRECTOR [address] [place] [address] [facility]+ Gate Guard 05/08/18 11/26/18 Neva Velásquez, RN [address] [facility] 4 [place] [address] [facility] Community Statistical Clerk 11/29/18 08/15/21 Albaro Kellogg MD [address] [place] [address] Physician Endocrinology 08/01/19 11/17/20 Aging, [facility] 02/04/20 Ralph Wilcox MD [address] [address] Gastroenterology 11/25/20 [place] [address] [place] [address] Consulting Provider Optometry 11/25/20 Roselia Abernathy MD 1 [place] [address] Obstetrics and Gynecology 11/25/20 documented as of this encounter
--- OUTSIDE RECORDS SUMMARY | 2025-06-19 16:13 | XMS_ITS | Continuity of Care Document ---
Author Organization [facility] [employer] [address] [facility] [address] [place] [address] Phone [phone] Care Team Providers Care Ux Design Lead Name Role Phone Jennifer Block MD Care Team Information Sensor Operator [phone] Problems Active Problems Provider Date Type 2 [...] SIG Qnty Indications Order ing Provider Date Fmuggfugv66tr Tablets Take One Tablet By Mouth Every Morning ^1R1 90tabs Leann Staton M.D. 11/15/2024 Onetouch VerioStrips Use One Strip To Check Glucose 3 To 4 Times Daily (Bulk) 300units E11.22 Marilin Freeman CNP 12/29/2023 Freestyle Jazmine 2/Channing/Flash Glucose Monitoring Tyadgn4Rtmhqv Device use as directed with sensors dx: e11.22 1units E11.22 Leann Staton M.D. 11/23/2023 Freestyle Jazmine 2/Sensor/Flash Glucose Monitoring [facility]ckx9Dqzlpp [facility] Use 1 Sensor Every 14 Days as Directed (Bulk) 3units E11.22 Leann Staton M.D. 11/23/2023 Lantus Auijfikh110Vscq/ML Solution Pen-Inject Lazaro Suarez MD Montelukast Dahvka89dq Tablets 1 by mouth every day 30tabs Tommie Suarez MD Trulicity4.5mg/0.5ML Solution Pen-Inject inject 4.5mg into skin every week 6ml Tommie Suarez MD Vitamin D (Ergocalciferol)1.25m g (93430 Ut) Capsules Tommie Suarez MD Atorvastatin Iwozofl91jf Tablets 1 by mouth every day 90tabs Tommie Suarez MD Aspirin Low Gtot27vz Tablets DR 1 by mouth every day Tommie Suarez MD Albuterol Sulfate AGF842(90Base) mcg/Act Aerosol Tommie Suarez MD Zsrshqqljf947wf Capsules 1 capsule by twice daily 180caps Tommie Suarez MD Pdiykoobjs3wp Tablets 1 tab by mouth twice a day Tommie Suarez MD Pantoprazole Wqlobg50gw Tablets DR 1 by mouth every day 90tabs Tommie Suarez MD Novolog Hiceuln153Krfl/ML Solution Pen-Inject Lazaro Suarez MD Vital Signs [...] 190 Procedures Date Code Description Status 02/13/2025 62545 Glucose Monitoring Interpeta tion And Report Completed 11/15/2024 89173 Glucose Monitoring Interpeta tion And Report Completed 08/01/2024 87638 Glucose Monitoring Interpeta tion And Report Completed Medical Devices Description No Information Available Encounters Type Date Location Provider Dx Diagnosis Office Visit 02/13/2025 2:15p Main Office [facility] 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 E11.42 Type 2 diabetes mila itus with diabetic polyneuropathy Z79.4 retirement (current) use of insulin D63.1 Anemia in chronic ki dney disease Assessments Date Code Description Provider 02/13/2025 E11.22 Type 2 diabetes mellitus with diabetic chronic kidney disease ELENO Robins 02/13/2025 E11.42 Type 2 diabetes mellitus with diabetic polyneuropathy EL[facility] Robins 02/13/2025 Z79.4 retirement (current) use of i nsulin ELENO Robins 02/13/2025 D63.1 Anemia in chronic kidney dis ease [facility] Robins Plan of Treatment Future Appointment(s):* 06/27/2025 2:15 pm - Marilin Freeman CNP at Main Office 11/15/2024 - [facility]* E11.22 Type 2 diabetes mellitus with diabetic chronic kidney disease * E11.42 Type 2 diabetes mellitus with diabetic polyneuropathy * Z79.4 long term care phlebotomist (current) use of insulin * D63.1 Anemia in chronic kidney disease * Functional Status Description No Information Available Mental Status Description No Information Available Referrals Description No Information Available
--- OUTSIDE RECORDS SUMMARY | 2025-06-19 16:13 | XMS_ITS | Encounter Summary ---
Author Organization [facility] Address [address] [place] [address] Care Team Providers Care Installer Apprentice Name Role Phone [facility], [place] [facility] Unavailable [phone] Ralph Wilcox MD Unavailable [phone] Otilia Paulson OD Unavailable [phone] Roselia Abernathy MD Unavailable [phone] Encounter Details Date Type Department Care Team (Late st Contact Info) Description 11/05/2024 Telephone [facility] [address] [place] [id number] Garry Chung Social History Tobacco Use Types [...] on filedocumented in this encounter Care Teams Installer Apprentice Relationship Specialty Start Date End Date [facility] 02/04/20 Ralph Wilcox MD [address] [address] Gastroenterology 11/25/20 [place] [address] [place] [address] Consulting Provider Optometry 11/25/20 Roselia Abernathy MD [address] [place] [address] Obstetrics and Gynecology 11/25/20 documented as of this encounter
--- OUTSIDE RECORDS SUMMARY | 2025-06-19 16:13 | XMS_ITS | Encounter Summary ---
Author Organization [facility] Address [address] [place] [address] Care Team Providers Care Filter Press Supervisor Name Role Phone Alison Aguirre APRN Primary Care Provider Soila Pineda Unavailable [phone] Gayatri Geogre APRN Primary Care Provider [phone] Neva Velásquez RN Unavailable Albaro Kellogg MD Unavailable Aging, [place] [facility] Unavailable [phone] Ralph Wilcox MD Unavailable [phone] Otilia Paulson OD Unavailable Roselia Abernathy MD Unavailable [phone] Gayatri George APRN Primary Care Provider [phone] Gayatri George APRN Unavailable [phone] Encounter Details Date Type Department Care Team (Late st Contact Info) Description 11/07/2017 Scanned Document [facility] [address] [facility] [address] [place] [address] Provider, Generic Social History Tobacco [...] in this encounter Care Teams Filter Press Supervisor Relationship Specialty Start Date End Date Alison Aguirre APRN PCP - General Internal Medicine 10/24/17 07/16/18 Gayatri George, BUSINESS IMPROVEMENT MANAGER [address] [address] PCP - General Family Medicine 07/17/18 11/17/20 Gayatri George, BUSINESS IMPROVEMENT MANAGER [address] [id number] PCP - General Family Medicine 11/25/20 01/20/21 Gayatri George, BUSINESS IMPROVEMENT MANAGER [address] [place] [address] PCP - [employer] Attributed 03/02/19 06/01/19 Soila Pineda, MARKER SHIPMENTS [address] [address] [facility]+ Cap Maker 05/08/18 11/26/18 Neva Veláqsuez, RN [address] [address] [facility] Business Continuity Strategy Director 11/29/18 08/15/21 Albaro Kellogg MD [address] [place] [address] Physician Endocrinology 08/01/19 11/17/20 Aging, [facility] 02/04/20 Ralph Wilcox MD [address] [place] [address] Gastroenterology 11/25/20 Otilia Paulson OD [address] [place] [address] Consulting Provider Optometry 11/25/20 Roselia Abernathy MD [address] [place], [place] [phone] Obstetrics and Gynecology 11/25/20 documented as of this encounter
--- OUTSIDE RECORDS SUMMARY | 2025-06-19 16:13 | XMS_ITS | Clinical Summary ---
Author Organization [facility] Address [address] [facility] [address] [place] [address] Phone Care Team Providers Care Lacquerer Name Role Phone Tommie Suarez MD Primary [...] mouth 2 (two) times a day Active fluticasone-nicole meterol (ADVAIR DISKUS) 250-50 MCG/DOSE diskus inhaler Active insulin aspart (NovoLOG) 100 UNIT/ML injection Active insulin glargine (LANTUS) 100 UNIT/ML injection Active montelukast (SINGULAIR) 10 MG tablet Take 1 tablet by mouth 1 (one) time each day Active ergocalciferol (VITAMIN D2) 1.25 MG (56974 UT) capsule @@TAKE 1 CAPSULE BY MOUTH ONCE A MONTH 1 capsule 01/22/20 21 Active calcitriol (ROCALTROL) 0.25 MCG capsule 04/09/20 21 Active Trulicity 4.5 MG/0.5ML solution pen-injector 06/21/20 21 Active ammonium lactate (AMLACTIN) 12 % cream 06/21/20 Active FREESTYLE LITE test strip 08/17/20 Active pantoprazole (PROTONIX) 20 MG EC tablet Take 1 tablet by mouth 1 (one) time each day 09/30/20 21 Active clopidogrel (PLAVIX) 75 MG tablet Take 75 mg by mouth 1 (one) time each day 12/08/19 23 Active gabapentin (NEURONTIN) 100 MG capsule Take 1 capsule by mouth in the morning and 1 capsule in the evening. 11/29/19 23 Active isosorbide mononitrate (IMDUR) 30 MG 24 hr tablet Take 1 tablet by mouth 1 (one) time each day 11/29/19 23 Active hydrALAZINE 50 MG tablet Take 1 tablet by mouth in the morning and 1 tablet in the evening and 1 tablet before bedtime. 11/29/19 23 Active bumetanide (BUMEX) 2 MG tablet Take 1 tablet (2 mg total) by mouth 1 (one) time each day 60 tablet 3 10/30/19 24 Active potassium chloride (MICRO-K) 10 MEQ CR capsule 12/26/19 24 Active oxyCODONE (OXY-IR) 5 MG immediate release capsule Take 5 mg by mouth every 6 (six) hours if needed for moderate pain Active acetaminophen (TYLENOL) 325 MG tablet Take 325 mg by mouth every 6 (six) hours if needed for mild pain Active Cariprazine HCl 1.5 MG capsule Take by mouth Active Empagliflozin (Jardiance) 10 MG tablet Take 10 mg by mouth 1 (one) time each day in the morning Active polyethylene glycol (GLYCOLAX) 17 g packet Take 17 g by mouth 1 (one) time each day Active desvenlafaxine (PRISTIQ) 100 MG 24 hr tablet Take 1 tablet by mouth 1 (one) time each day 025 Discontinued venlafaxine 225 MG 24 hr tablet Take 1 tablet by mouth 1 (one) time each day 025 Discontinued cyclobenzaprine (FLEXERIL) 10 MG tablet Take 1 tablet by mouth if needed 12/18/19 21 025 Discontinued famotidine (PEPCID) 40 MG tablet Take 1 tablet by mouth 1 (one) time each day 02/05/20 21 025 Discontinued docusate sodium (COLACE) 100 MG capsule Take 100 mg by mouth 1 (one) time each day 025 Discontinued lurasidone (LATUDA) 20 MG tablet Take 20 mg by mouth 1 (one) time each day with breakfast 025 Discontinued traZODone (DESYREL) 100 MG tablet Take 250 mg by mouth every night 06/28/20 21 025 Discontinued Diclofenac Sodium 1 % gel 06/21/20 21 025 Discontinued Vraylar 1.5 MG capsule 06/28/20 21 025 Discontinued(Fo rmulary change) acetaminophen (TYLENOL) 325 MG tablet 06/21/20 21 025 Discontinued(Fo rmulary change) lactulose (CHRONULAC) 10 GM/15ML solution 08/11/20 025 Discontinued Hospital, Clinic, or Other Facility Administered Medication Ordered Dose Route Frequency Start Date End Date Status Epoetin Sally-epbx solution 10,000 UnitsIndications:Anemi a in chronic kidney disease 20066 Units IJ Weekly 11/12/2020 Active ferumoxytol (FERAHEME) injection 510 mgIndications:Other iron deficiency anemia 510 mg IV Once in dialysis 07/05/2021 Active Epoetin Sally-epbx solution 40,000 UnitsIndications:Anemi a in chronic kidney disease,Chronic kidney disease stage 4 (HCC),Hypertensive renal disease 49461 Units IJ Every 7 days 07/15/2021 Active epoetin sally (EPOGEN,PROCRIT) injection 10,000 UnitsIndications:Anemi a due to Renal Failure 14204 Units IV Every 14 days 09/20/2022 Active [...] Speech disturbance 01/07/2019 Depressive disorder 12/24/2018 12/23/19 21 Overview (12/22/2020): Last Assessment & Plan: Mood [...] the sparingly. Triggering of digit 07/19/2018 12/23/19 Overview (12/22/2020): Last Assessment & Plan: Referred [...] Procedure Name Priority Date/Time Associated Diagnosis Comments RENAL FUNCTION PANEL (EXTERNAL LAB ENTRY) Routine 04/30/2025 RENAL FUNCTION PANEL (EXTERNAL LAB ENTRY) Routine 04/28/2025 EXT RESULT ENTRY Routine 03/20/2025 from Last 3 Months Results * Renal Function Panel (External Lab) (04/30/2025) Only the most recent of2 resultswithin the time period is included. BUN 20 mg/dL eGFR 17 BUN/Creatinine Ratio 7 Creatinine 2.92 mg/dL Blood 04/30/2025 us Historical Provider MD LAB BLOOD ORDERABLES Lisa l Result * (ABNORMAL) EXT RESULT ENTRY (03/20/2025) Hemoglobin 11.3(A) 12.0 - 16.0 Hematocrit 36.3 36.0 - 46.0 Platelets 348 150 - 399 10*3/UL Sodium 137 137 - 147 Potassium 5.1 3.4 - 5.5 Carbon Dioxide 18 mmol/L BUN 50(A) 4 - 21 mg/dL Creatinine 2.89(A) 0.50 - 1.10 mg/dL eGFR Non-Afr [place] 18 03/20/2025 Historical Provider MD LAB BLOOD ORDERABLES Lisa l Result from Last 3 Months Insurance [facility] ([id number]) [facility] ([id number]) Care Teams Lacquerer Relationship Specialty Start Date End Date Tommie Suarez MD [address] [address] PCP - General 10/12/20
--- OUTSIDE RECORDS SUMMARY | 2025-06-19 16:13 | XMS_ITS ---
Author Organization [facility] Care Team Providers Care Manufacturers Agent Name Role Phone Cinthya Eden Unavailable Unavailable Jessika Middleton Unavailable Unavailable Maritza Comer Unavailable Unavailable Azalia Reilly Unavailable Unavailable Allergies and adverse reactions Code CodeSystem Substance Reaction Severity StartDate Concern Status 77905 RXNORM sulfADIAZINE Unknown 01/24/2024 active 1292 RXNORM Baclofen Unknown 01/24/2024 active Care Team Name Role Address Phone Organization Dates Maritza Comer PCP [address] [address], [place], [address], [place] (Office): : [facility] 01/26/2024 - 03/07/2024 Cinthya Eden [address] [place], [address], [place] (Office): : [facility] 01/26/2024 - 03/07/2024 Jessika Middleton [address] [place] [address], [place], [address], [place] (Office): [facility] 01/26/2024 - 03/07/2024 Azalia Reilly [address] [place] [address] , [place], [address], [place] (Office): [facility] 01/26/2024 - 03/07/2024 Mental Status Section Date Assessment Total Score Description 03/07/2024 BIMS 12 moderate cognit josie impairment CAM 0 No delirium ind icated PHQ-9 00 01/29/2024 BIMS 15 cognitively int act CAM 0 No delirium ind icated PHQ-9 09 mild depression Problems Problem # Description Date of onset Resolved Date Code CodeSystem Concern Status 1 CHRONIC KIDNEY DISEASE, STAGE 4 (SEVERE) [address] active 2 DISCITIS, UNSPECIFIED, LUMBAR REGION [address] active 3 EMPHYSEMA, UNSPECIFIED [address] active 4 ESSENTIAL (PRIMARY) HYPERTENSION [address] active 5 GASTRO-ESOPHAGEAL REFLUX DISEASE WITHOUT ESOPHAGITIS [address] active 6 HYPERLIPIDEMIA, UNSPECIFIED [address] active 7 INFLUENZA DUE TO IDENTIFIED NOVEL INFLUENZA A VIRUS WITH OTHER RESPIRATORY MANIFESTATIONS [address] active 8 METHICILLIN RESISTANT STAPHYLOCOCCUS AUREUS INFECTION THE CAUSE OF DISEASES CLASSIFIED ELSEWHERE [address] active 9 OBSTRUCTIVE SLEEP APNEA (ADULT) (PEDIATRIC) [address] active 10 OSTEOMYELITIS OF VERTEBRA, LUMBAR REGION [address] active 11 OTHER LACK OF COORDINATION [address] active 12 OTHER SPECIFIED ABNORMAL FINDINGS OF BLOOD CHEMISTRY [address] active 13 TYPE 2 DIABETES MELLITUS WITH OTHER DIABETIC KIDNEY COMPLICATION [address] active 14 UNSPECIFIED FALL, INITIAL ENCOUNTER [address] active Reason for Referral No Reasons for Referral Entered Social History Social History Observation Description Start Date End Date Code Code System Current Smoking Status Tobacco smoking consumption unknown 213590160 SNOMED CT Sex Assigned At Female 1960 [address]0920-5 [facility] Gender Identity Sexual Orientation Vital Signs Code Code System Vitals Name Values and Units Timing Information 01427-1 [facility] Pain Level Value=0.0 03/07/2024 2339-0 [facility] Blood Sugar Beaab=473.0 Units=mg/dL 03/07/2024 8310-5 [facility] Body Temperature Value=97.8 Units= F 03/05/2024 9279-1 [facility] Respiratory Rate Value=18.0 Units=/m in 03/05/2024 8867-4 [facility] Heart rate Value=73.0 Units=/min 01/2024 88855-2 [facility] O2 % dC Oximetry Value=97.0 Units= % 03/05/2024 8462-4 [facility] Blood Pressure-Diastolic Value=71 Un its=mmHg 03/01/2024 8480-6 [facility] Blood Pressure-Systolic Dxdix=620 Un its=mmHg 03/01/2024 65324-5 [facility] Weight Wxnhr=599.0 Units=Lbs 8302-2 [facility] Height Value=65.0 Units=Inches 01/27/2024
--- OUTSIDE RECORDS SUMMARY | 2025-06-19 16:13 | XMS_ITS | Encounter Summary ---
Author Organization [facility] Address [address] [place] [address] Care Team Providers Care Feeder Worker Power Unit Operator Name Role Phone Alison Aguirre APRN Primary Care Provider Soila Pineda PARTNERSHIP DEVELOPMENT MANAGER Unavailable [phone] Gayatri George APRN Primary Care Provider Neva Velásquez RN Unavailable Albaro Kellogg MD Unavailable Aging, [place] For [facility] Unavailable [phone] Ralph Wilcox MD Unavailable [phone] Otilia Paulson OD Unavailable [phone] Roselia Abernathy MD Unavailable Gayatri George APRN Primary Care Provider Gayatri George APRN Unavailable [phone] Encounter Details Date Type Department Care Team (Late st Contact Info) Description 11/01/2017 Scanned Document [address] [phone] Alison Aguirre APRN [address] [place] [address] Social History Tobacco Use Types Packs/Day Years [...] on filedocumented in this encounter Care Teams Feeder Worker Power Unit Operator Relationship Specialty Start Date End Date Alison Aguirre APRN PCP - General Internal Medicine 10/24/17 07/16/18 Gayatri George, CHIEF GUARD [address] [facility] [address] [place] [address] PCP - General Family Medicine 07/17/18 11/17/20 Gayatri George, CHIEF GUARD [address] [place] [address] [place] [address] PCP - General Family Medicine 11/25/20 01/20/21 Gayatri George, CHIEF GUARD [address] [place] [address] PCP - [employer] Attributed 03/02/19 06/01/19 Soila Pineda, PARTNERSHIP DEVELOPMENT MANAGER [address] [place] [address] [facility]+ Bicycle Technician 05/08/18 11/26/18 Neva Velásquez, RN [address] [facility] [address] [place] [address] [facility]np 11/29/18 08/15/21 Albaro Kellogg MD [address] [place] [address] Physician Endocrinology 08/01/19 11/17/20 Aging, [facility] 02/04/20 Ralph Wilcox MD [address] [address] Gastroenterology 11/25/20 [place] [address] [place] [address] Consulting Provider Optometry 11/25/20 Roselia Abernathy MD 1 [place] [address] Obstetrics and Gynecology 11/25/20 documented as of this encounter
== END 2025-06-19 15:11 | disposition home or self-care (01) ==
PROVIDERS: PCP Internal Medicine; Visit Provider Internal Medicine Nephrology
DX: I12.9 Hypertensive chronic kidney disease with stage 1 through stage 4 chronic kidney disease, or unspecified chronic kidney disease (principal); N18.4 Chronic kidney disease, stage 4 (severe); D63.1 Anemia in chronic kidney disease
CPT/HCPCS: 99214

== ENCOUNTER → 2025-06-19 14:23 | Outpatient (BNVA) | payer OTHER, SELFPAY | PROVIDERS: PCP Family Medicine; Visit Provider Internal Medicine Nephrology | DX: I12.9 Hypertensive chronic kidney disease with stage 1 through stage 4 chronic kidney disease, or unspecified chronic kidney disease (principal); N18.4 Chronic kidney disease, stage 4 (severe); D63.1 Anemia in chronic kidney disease | CPT/HCPCS: 96372; 99212; Q5106 ==

== ENCOUNTER 2025-08-15 11:07 | Outpatient (REF) | payer OTHER, SELFPAY ==
[2025-08-15 11:33] LABS: MANUAL DIFF FLAG NO
[2025-08-15 12:41] LABS: Hematocrit 32.0 % (37.0-47.0); Hemoglobin 10.4 g/dl (12.0-16.0); Imm Gran Abs Auto 0.02 X10*3/uL (0.00-0.03); Imm Gran Pct Auto 0.3 % (0.0-0.4); Lymphocytes Absolute Auto 1.3 X10*3/uL (1.2-4.9); Mean Corpuscular HGB Conc 32.5 g/dl (31.0-35.0); Mean Corpuscular Hemoglobin 28.1 pg (27.0-33.0); Mean Corpuscular Volume 86.5 fL (80.0-98.0); NRBC Abs Auto 0.000 X10*3/uL (0.0-0.012); NRBC Pct Auto 0.0 /100WBC (0.0-0.2); Platelet Count 377 X10*3/uL (160-400); Red Blood Count 3.70 X10*6/uL (4.20-5.50); White Blood Count 6.7 X10*3/uL (4.8-10.8)
[2025-08-15 13:43] LABS: Parathyroid Hormone Intact 453.6 pg/mL (8.7-77.1)
[2025-08-15 14:15] LABS: Anion Gap 13 (12-20); Blood Urea Nitrogen 18 mg/dL (9-16); Calcium 8.8 mg/dL (8.4-10.2); Carbon Dioxide 25 mmol/L (22-29); Chloride 106 mmol/L (96-108); Estimated Glomerular Filt Rate 20; Iron 54 mcg/dL (30-160); Percent Iron Saturation 37 % (15-50); Potassium 3.0 mmol/L (3.3-5.1); Sodium 141 mmol/L (135-145); Total Iron Binding Capacity 146 mcg/dL (228-428); Unsaturated Iron Binding 92 ug/dL
[2025-08-15 14:38] LABS: Ferritin 146 ng/mL (10-250)
== END 2025-08-15 11:08 | disposition home or self-care (01) ==
LOC: HO.LAB 11:07
PROVIDERS: Internal Medicine Nephrology
DX: I12.9 Hypertensive chronic kidney disease with stage 1 through stage 4 chronic kidney disease, or unspecified chronic kidney disease (principal); N18.4 Chronic kidney disease, stage 4 (severe); D63.1 Anemia in chronic kidney disease; N25.81 Secondary hyperparathyroidism of renal origin
CPT/HCPCS: 36415; 80051; 82306; 82310; 82565; 82728; 83540; 83970; 84100; 84520; 85025

== ENCOUNTER 2025-08-19 13:22 | Outpatient (AMB) | payer OTHER, SELFPAY ==
--- OUTSIDE RECORDS SUMMARY | 2025-08-14 23:59 | XMS_ITS | Continuity of Care Document ---
Author Organization [facility] Address [address] [place] [id number] Care Team Providers Care [employer] Professor Name Role Phone Jennifer Block MD Primary Care Physician [place] [facility] [place]): [place] 08/14/25 [facility] [address] [place] [id number] Encounter Type: Triage Allergies, Adverse Reactions, Alerts Substance Criticality Severity Reaction Reaction Severity Status sulfADIAZINE Active baclofen Active Immunizations Given and Recorded Vaccine Date Status Refusal Reason SARS-CoV-2 (COVID-19) mRNA-1273 vaccine 04/16/21 R ecorded SARS-CoV-2 (COVID-19) mRNA-1273 vaccine 03/19/21 R ecorded Medications acetaminophen 325 mg oral tablet 325 mg, 1, tablet, By Mouth, Every 4 hours, PRN, # 12 tablet, Refills 0, Maintenance, as needed forfever, 12/03/22 4:14:00 PM EST, Partial fill upon patient request if the prescription is for a schedule II opioid drug. Start Date: 12/03/22 Status: Ordered Medication Dispense Status: Completed Quantity: 12.0 Unit: tablet Total Allowed Fills: 1 Fills Dispensed: 0 acetic acid 3% solution acetic acid 3% solution, See Instructions, # 1 each, Refills 0, Tot. Refills 0, Maintenance, use towash right foot daily with each dressing change., 07/30/25 7:36:00 AM EDT, Supply, 167, cm, 07/21/25 13:22:00 EDT, Height, 89.4, kg, 05/28/25 15:00:00 EDT, Dry Weight Start Date: 07/30/25 Status: Ordered Medication Dispense Status: Completed Quantity: 1.0 Unit: each Total Allowed Fills: 1 Fills Dispensed: 0 Aspirin Low Dose 81 mg oral delayed release tablet 1 tablet = 81 mg, By Mouth, Daily, # 30 tablet, 0 Refills, Maintenance, 12/03/22 4:16:00 PM EST, EC Tablet, Partial fill upon patient request if the prescription is for a schedule II opioid drug. Start Date: 12/03/22 Status: Ordered Medication Dispense Status: Completed Quantity: 30.0 Unit: tablet Total Allowed Fills: 1 Fills Dispensed: 0 atorvastatin 40 mg oral tablet 0 Refills, Maintenance, 12/03/22 4:14:00 PM EST, Partial fill upon patient request if the prescription is for a schedule II opioid drug. Start Date: 12/03/22 Status: Ordered Medication Dispense Status: Completed Total Allowed Fills: 1 Fills Dispensed: 0 bumetanide 0.5 mg oral tablet See Instructions, Take 4 tabs by mouth once daily for 3 days, then take 2 tabs by mouth daily., # 30 capsule, Refills 0, Tot. Refills 0, Maintenance, 06/11/24 1:20:00 PM EDT, Instructions Replace Required Details, Route to Pharmacy Electronically, [facility] #[id number], Partial fill upon patient request if the prescription is for a schedule II opioid drug., 168, cm, 06/11/24 11:22:00 EDT, Height, 94.5, kg, 06/09/24 12:52:00 EDT, Dry Weight Start Date: 06/11/24 Status: Ordered Medication Dispense Status: Completed Quantity: 30.0 Unit: capsule Total Allowed Fills: 1 Fills Dispensed: 0 buPROPion 150 mg/24 hours (XL) oral tablet, extended release 1 tablet = 150 mg, By Mouth, Every 24 hours, # 30 tablet, 0 Refills, Maintenance, 06/09/24 3:32:00 PMEDT, ER Tablet, Partial fill upon patient request if the prescription is for a schedule II opioid drug. Start Date: 06/09/24 Status: Ordered Medication Dispense Status: Completed Quantity: 30.0 Unit: tablet Total Allowed Fills: 1 Fills Dispensed: 0 calcitriol 0.25 mcg oral capsule 1 capsule = 0.25 mcg, By Mouth, Daily, # 30 capsule, 0 Refills, Maintenance, 12/03/22 4:16:00 PM EST,Capsule, Partial fill upon patient request if the prescription is for a schedule II opioid drug. Start Date: 12/03/22 Status: Ordered Medication Dispense Status: Completed Quantity: 30.0 Unit: capsule Total Allowed Fills: 1 Fills Dispensed: 0 carvedilol 6.25 mg oral tablet 6.25 mg, 1, tablet, By Mouth, 2 times a day, # 180 tablet, Refills 0, Maintenance, 12/03/22 4:15:00 PM EST, Partial fill upon patient request if the prescription is for a schedule II opioid drug. Start Date: 12/03/22 Status: Ordered Medication Dispense Status: Completed Quantity: 180.0 Unit: tablet Total Allowed Fills: 1 Fills Dispensed: 0 Dakins Quarter Strength 0.125% topical solution See Instructions, Apply to wound bed, follow wound care instructions, # 473 mL, 0 Refills, Maintenance, 07/29/25 8:26:00 AM EDT, [facility] #[id number], Partial fill upon patient request if the prescription is for a schedule II opioid drug., Apply to wound bed, follow wound care instructions, 167, cm, 07/21/25 13:22:00 EDT, Height, 89.4, kg, 05/28/25 15:00:00 EDT, Dry Weight Start Date: 07/29/25 Status: Ordered Medication Dispense Status: Completed Quantity: 473.0 Unit: mL Total Allowed Fills: 1 Fills Dispensed: 0 ergocalciferol 92742 iu oral capsule 50,000 International_Units, 1, capsule, By Mouth, Every week, # 30 capsule, Refills 0, Maintenance,12/03/22 4:15:00 PM EST, Partial fill upon patient request if the prescription is for a schedule II opioid drug. Start Date: 12/03/22 Status: Ordered Medication Dispense Status: Completed Quantity: 30.0 Unit: capsule Total Allowed Fills: 1 Fills Dispensed: 0 fluticasone-salmeterol 250 mcg-50 mcg inhalation powder 1, puffs, Inhalation, 2 times a day, # 180 each, Refills 0, Maintenance, 12/03/22 4:15:00 PM EST, Powder Start Date: 12/03/22 Status: Ordered Medication Dispense Status: Completed Quantity: 180.0 Unit: each Total Allowed Fills: 1 Fills Dispensed: 0 gabapentin 100 mg oral capsule 100 mg, By Mouth, 2 times a day, # 120 capsule, Refills 0, Maintenance, 12/03/22 4:15:00 PM EST, Partial fill upon patient request if the prescription is for a schedule II opioid drug. Start Date: 12/03/22 Status: Ordered Medication Dispense Status: Completed Quantity: 120.0 Unit: capsule Total Allowed Fills: 1 Fills Dispensed: 0 hydrALAZINE 25 mg oral tablet 75 mg, By Mouth, Every 8 hours, # 60 tablet, Refills 0, Maintenance, 12/03/22 4:15:00 PM EST, Partialfill upon patient request if the prescription is for a schedule II opioid drug. Start Date: 12/03/22 Status: Ordered Medication Dispense Status: Completed Quantity: 60.0 Unit: tablet Total Allowed Fills: 1 Fills Dispensed: 0 insulin lispro 100 units/mL injectable solution 2-10 units, Subcutaneous Injection, 3 times a day before meals, 0 Refills, Maintenance, 01/26/24 12:59:00 PM EDT, Injection, Partial fill upon patient request if the prescription is for a schedule II opioid drug. Start Date: 01/26/24 Status: Ordered Medication Dispense Status: Completed Total Allowed Fills: 1 Fills Dispensed: 0 isosorbide mononitrate 30 mg oral tablet, extended release 2 tablet = 60 mg, By Mouth, Daily in AM, # 30 tablet, 0 Refills, Maintenance, 12/03/22 4:15:00 PM EST, ER Tablet, Partial fill upon patient request if the prescription is for a schedule II opioid drug. Start Date: 12/03/22 Status: Ordered Medication Dispense Status: Completed Quantity: 30.0 Unit: tablet Total Allowed Fills: 1 Fills Dispensed: 0 Jardiance 10 mg oral tablet 1 tablet = 10 mg, By Mouth, Daily in AM, # 30 tablet, 0 Refills, Maintenance, 03/12/25 11:43:00 AM EDT, Tablet, Partial fill upon patient request if the prescription is for a schedule II opioid drug. Start Date: 03/12/25 Status: Ordered Medication Dispense Status: Completed Quantity: 30.0 Unit: tablet Total Allowed Fills: 1 Fills Dispensed: 0 Lantus Inj See Instructions, 40 units Subcutaneous Injection Daily, 0 Refills, Maintenance, 01/26/24 12:59:00 PM EDT, Injection, Partial fill upon patient request if the prescription is for a schedule II opioid drug. Start Date: 01/26/24 Status: Ordered Medication Dispense Status: Completed Total Allowed Fills: 1 Fills Dispensed: 0 MiraLax Powder 1 pack/packet = 17 Gm, By Mouth, Daily, PRN Constipation, 0 Refills, Maintenance, 01/26/24 1:00:00 PM EDT, Powder, Partial fill upon patient request if the prescription is for a schedule II opioid drug. Start Date: 01/26/24 Status: Ordered Medication Dispense Status: Completed Total Allowed Fills: 1 Fills Dispensed: 0 montelukast 10 mg oral tablet 10 mg, 1, tablet, By Mouth, Daily, Refills 0, Maintenance, 12/03/22 4:15:00 PM EST, Partial fill uponpatient request if the prescription is for a schedule II opioid drug. Start Date: 12/03/22 Status: Ordered Medication Dispense Status: Completed Total Allowed Fills: 1 Fills Dispensed: 0 NovoLIN N FlexPen See Instructions, Subcutaneous Infusion 2 times a day, 0 Refills, Maintenance, 05/28/25 2:20:00 PM EDT, Partial fill upon patient request if the prescription is for a schedule II opioid drug. Start Date: 05/28/25 Status: Ordered Medication Dispense Status: Completed Total Allowed Fills: 1 Fills Dispensed: 0 pantoprazole 20 mg oral delayed release tablet 1 tablet = 20 mg, By Mouth, Daily, # 30 tablet, 0 Refills, Maintenance, 12/03/22 4:15:00 PM EST, CR Tablet Start Date: 12/03/22 Status: Ordered Medication Dispense Status: Completed Quantity: 30.0 Unit: tablet Total Allowed Fills: 1 Fills Dispensed: 0 Plavix 75 mg oral tablet 75 mg, 1, tablet, By Mouth, Daily, # 30 tablet, Refills 0, Tot. Refills 0, Maintenance, 12/07/22 11:29:00 AM EST, Route to Pharmacy Electronically, [facility] #[id number], Partial fill upon patient request if the prescription is for a schedule II opioid drug., 167, cm, 12/07/22 8:10:00 EST, Height, 93.7, kg, 12/03/22 15:21:00 EST, Dry Weight Start Date: 12/07/22 Status: Ordered Medication Dispense Status: Completed Quantity: 30.0 Unit: tablet Total Allowed Fills: 1 Fills Dispensed: 0 Potassium Chloride (Eqv-K-Tab) 10 mEq oral tablet, extended release 1 tablet = 10 mEq, By Mouth, 2 times a day, # 10 tablet, 0 Refills, Maintenance, 06/11/24 1:21:00 PMEDT, ER Tablet, [facility] #[id number], Partial fill upon patient request if the prescription is for a schedule II opioid drug., 168, cm, 06/11/24 11:22:00 EDT, Height, 94.5, kg, 06/09/24 12:52:00 EDT, Dry Weight Start Date: 06/11/24 Stop Date: 06/16/24 Status: Ordered Medication Dispense Status: Completed Quantity: 10.0 Unit: tablet Total Allowed Fills: 1 Fills Dispensed: 0 Trulicity Pen 4.5 mg/0.5 mL subcutaneous solution = 0.5 mL, Subcutaneous Injection, Every week, rotate injection sites, # 2 mL, 0 Refills, Maintenance, 06/09/24 3:31:00 PM EDT, Solution, Partial fill upon patient request if the prescription is for a schedule II opioid drug. Start Date: 06/09/24 Status: Ordered Medication Dispense Status: Completed Quantity: 2.0 Unit: mL Total Allowed Fills: 1 Fills Dispensed: 0 Ventolin HFA 108 mcg/inh inhalation aerosol with adapter 1 puffs, Inhalation, 4 times a day, PRN for wheezing, # 18 Gm, 0 Refills, Maintenance, 12/03/22 4:15:00 PM EST, Aerosol, Partial fill upon patient request if the prescription is for a schedule II opioid drug. Start Date: 12/03/22 Status: Ordered Medication Dispense Status: Completed Quantity: 18.0 Unit: g Total Allowed Fills: 1 Fills Dispensed: 0 Vraylar 1.5 mg oral capsule 1 capsule = 1.5 mg, By Mouth, Daily, 0 Refills, Maintenance, 06/09/24 3:33:00 PM EDT, Partial fill upon patient request if the prescription is for a schedule II opioid drug. Start Date: 06/09/24 Status: Ordered Medication Dispense Status: Completed Total Allowed Fills: 1 Fills Dispensed: 0 Problem List Condition Confirmation Course Effective Dates Status H ealth Status Informant CHF exacerbation Confirmed Active Amputation of right great toe Confirmed Active CKD (chronic kidney disease) Confirmed Active Diabetes Confirmed Active Chronic GERD Confirmed Active Hyperlipidemia Confirmed Active Hypertension Confirmed Active BRANDON (acute kidney injury) Confirmed Active Obese class I Confirmed Active PVD (peripheral vascular disease) Confirmed Active Elevated troponin Confirmed Active Social History Social History Type Response Smoking Status Former smoker, quit more than 30 days ago entered on: 04/23/20 Sex Sex Representation Female (finding) Implantable Device List Procedure Provider Procedure Date Device Type Site Debridement Procedure Dhaval Jesus MD 05/28/25 Unknow n Leg Lower Device Identifier Serial Number Lot or Batch Number Manufacturing Date Expiration Date Distinct Identification Code MRI Safety Implantable Status Assigning Authority Unknown [id number] Unknown 07/30/26 Unknown Unknown Active Unknown Patient Care team information Care Team Personnel Name: Jennifer lBock MD Position: [facility] Physician - Primary Care Member Role: PCP Address: [address] [place] [id number] Telecom: Name: Mariel Logan LPN Position: [facility] RN Member Role: Primary Care Nurse Name: Amanda Yeh RN Position: S RN Member Role: Primary Care Nurse Name: Rachel Mauricio RN Position: [facility] RN Member Role: Primary Care Nurse Name: Oralia Velazquez RN Position: [facility] RN Member Role: Primary Care Nurse Care Team Related Persons Name: JOSE RAMON CABRERA Name: AARON HILTON Insurance Providers Guarantor name: MARISSA Health Plan Information #: 1 Payer: [facility] Payer Identifier: MARISSA Member Number: [id number] Group Number: [id number] Subscriber Identifier: NA Relationship to Subscriber: self Coverage Type: Medicare Managed Care (Includes Medicare Advantage Plans) Coverage Verification Date: NA Telecom: NA Address:
--- NOTE | 2025-08-19 13:25 | A.OFFVIS_ITS ---
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 Accompanied by: Self / Same As Patient Allergies baclofen Allergy (Severe, Verified 08/19/25 13:30) can't move sulfacetamide Allergy (Severe, Verified 08/19/25 13:30) tongue swelling sulfur Allergy (Severe, Verified 08/19/25 13:30) tongue swelling Medication List - Last Reconciled 08/19/25 by Matias Winkler NP acetaminophen 325 mg PO Q4-6H PRN albuterol sulfate 90 mcg/actuation (Ventolin HFA) 2 puffs PO QID PRN allopurinol 100 mg PO DAILY 30 days aspirin 81 mg PO DAILY atorvastatin 40 mg PO DAILY blood sugar diagnostic (OneTouch Verio test strips) Test Blood Sugar 3 times a day As directed, 90 days blood sugar diagnostic (FreeStyle Lite Strips) USE DIRECTED TO TEST BLOOD SUGAR THREE TIMES DAILY blood-glucose meter (FreeStyle [place] Lite kit) As directed 3x/day blood-glucose meter (OneTouch Verio Flex Meter) Test Blood sugar As directed, 999 days bumetanide 0.5 mg PO DAILY 90 days bupropion HCl XL 150 mg PO QAM calcitriol 0.25 mcg PO DAILY cariprazine (Vraylar) 1.5 mg PO DAILY 30 days carvedilol orally daily; 25mg AM and 6.25mg PM 90 days carvedilol 25 mg PO QAM 90 days clopidogrel 75 mg PO DAILY 90 days dextrose 15 grams PO Q15M PRN diaper,brief,adult,disposable (Fitted Briefs Large) 3 times a day As directed, 30 days diaper,brief,adult,disposable (Comfort Shield Adult Diaper) Large. 3 times a day As directed, 90 days docusate sodium (Colace) 100 mg PO TID PRN 30 days dulaglutide (Trulicity) 4.5 mg (0.5 mL) subcut QWEEK empagliflozin (Jardiance) 10 mg PO DAILY epoetin sally (Procrit) 2,000 units IV 3XW ergocalciferol (vitamin D2) 1,250 mcg PO QWEEK famotidine 40 mg PO DAILY 90 days fluticasone propion-salmeterol 250-50 mcg/dose (Advair Diskus) 1 ea PO BID 30 days gabapentin 100 mg PO BID glucagon 3 mg/actuation (Baqsimi) 3 mg intranasal ONCE PRN 30 days hydralazine 50 mg PO TID 30 days insulin glargine (Lantus Solostar U-100 Insulin) 40 units (0.4 mL) subcut QAM 30 days iron sucrose (Venofer) 100 mg (5 mL) IV QWEEK 5 doses isosorbide mononitrate ER 30 mg PO DAILY 90 days lancets (Eagle-i Musicuch Delica Plus Lancet) Test bood sugar 3 times a day, As directed, 90 days miscellaneous medical supply Disposable Absorbent Pads DX: Urinary incontinence As directed, 2 per night, duration 999 days, 30 day supply montelukast 10 mg PO DAILY pantoprazole 40 mg PO DAILY 30 days pen needle, diabetic As directed 4 times a day, 100 day supply polyethylene glycol 3350 (Miralax) 17 grams PO DAILY 14 days potassium chloride ER 10 mEq PO DAILY 30 days sennosides (Evac-U-Gen (sennosides)) 17.2 mg PO DAILY HPI Comments Details: This is a 64-year-old female patient coming in for a follow-up visit. Patient with history of hypertension, hyperlipidemia, diabetes, CKD, CHF, sleep apnea, and obesity. Patient [facility] with [facility] as well as [facility]. Patient had an echo and a stress test that was abnormal indicating wall motion abnormalities and ischemia for which patient was suggested a cardiac catheterization however, patient had refused cardiac catheterization for further evaluation and is continuing to refuse the same. Patient does note that she recently underwent a right great toe amputation but otherwise is reporting feeling well overall without any cardiac symptoms of exertional chest pain, shortness of breath palpitations, dizziness, orthopnea, PND, leg edema, presyncope or syncope. Patient is reporting compliance with all her medications. [facility] Medical History Anemia in chronic kidney disease Sleep apnea Myocardial infarction CVA (cerebral vascular accident) Type 2 diabetes mellitus with diabetic polyneuropathy Chronic kidney disease, stage 4 (severe) Essential hypertension Hyperlipidemia LDL goal <70 Obesity due to excess calories Chronic, continuous use of opioids Chronic pain syndrome Spinal stenosis, lumbar region with neurogenic claudication Surgical History History of rotator cuff surgery History of abdominoplasty Status post breast reduction Hx of toe surgery Family History Father No problems noted. Mother Diabetes Hypertension Sister No problems noted. Sister No problems noted. Son No problems noted. Social History Household Members: Friend(s) Household Members Other:: roomate Housing: Apartment Alcohol intake: never Patient Tobacco Use Status: Former Tobacco user Tobacco use type: Cigarette Cigarette Packs Per Day: 0.5 e-Cigarette/Vaping Use: Never Used Second Hand Smoke Exposure: No Advance Directives Date on File: 07/07/20 service: No Current occupational status: disabled Current occupational exposures/hazards: No Cognitive needs: No Hearing needs: No Vision needs: No Review of Systems Const Denies daytime sleepiness, Denies difficulty sleeping, Denies snoring, Denies stops breathing during sleep and Denies weakness Card Denies chest pain, Denies rapid heart rate, Denies irregular heart rhythm, Denies claudication, Denies leg edema, Denies lightheadedness, Denies palpitations, Denies dyspnea, Denies dyspnea on exertion, Denies orthopnea, Denies paroxysmal nocturnal dyspnea and Denies slow heart rate Resp Denies cough, Denies dyspnea, Denies dyspnea on exertion and Denies snoring GI Reports no additional complaints, Denies hematochezia, Denies change in stool character and Denies dyspepsia Musc Denies abnormal gait, Denies muscle weakness and Denies numbness Neuro Denies abnormal gait, Denies numbness and Denies weakness Endo Denies palpitations Physical Exam Vital Signs: Last Vital Signs Pulse 67 08/19/25 13:26 BP 132/68 08/19/25 13:26 BMI result Body Mass Index 32.0 Const General: cooperative, healthy appearing, comfortable and no acute distress Orientation/consciousness: patient oriented x3 HEENT Head: Yes normal to inspection Neck Neck: Yes normal visual inspection, Yes trachea midline and Yes supple Chest Chest palpation & inspection: normal inspection of the chest Resp Effort & Inspection: normal respiratory effort Auscultation: clear to auscultation bilaterally, no crackles, no rales, no rhonchi and no wheezes Cardio Jugular venous distension: no JVD Palpation: normal PMI Rate: regular rate Rhythm: regular rhythm Heart sounds: S1 normal heart sound present, S2 normal heart sound present, no click, no gallops, no murmurs and no rubs Peripheral pulses: Peripheral pulses 2+ throughout GI Inspection: Yes normal to inspection Palpation (GI): Soft to palpation Auscultation: normal bowel sounds Skin General skin exam: no rashes or lesions noted Neuro General: patient oriented x3 Extrem General: Yes normal to inspection, No no pedal edema and No calf tenderness Psych Appearance: grossly normal Mental Status: mental status grossly normal Speech and movement: Normal speech and movement present Assessment & Plan Assessment & Plan (1) CHF (congestive heart failure): Code(s): I50.9 - Heart failure, unspecified Category: Medical Plan: 01/01/2025-echo study showed mildly reduced LV EF with no quantification. Possible inferior, inferoseptal and inferolateral hypokinesis. Clinically stable and euvolemic. Discussed cardiac catheterization again this visit to further assess the coronary artery disease however patient continues to refuse this. Patient states that she would like to be medically managed and would like to not undergo any invasive interventional therapies. Continue aspirin, Plavix, atorvastatin, Bumex, carvedilol, Jardiance, hydralazine therapy. Patient's recent labs with Nephrology showed hypokalemia of 3.0 and has been started on increased dose of potassium supplement. We have requested patient to repeat this in the next 2 days. Patient verbalizes understanding. Discussed in detail the signs and symptoms to watch for with heart failure. Advised low-salt diet, fluid restriction at 1.5-2 L daily, daily weight monitoring, and med compliance. 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 CKD is being followed by Nephrology. (3) Essential hypertension: Code(s): I10 - Essential (primary) hypertension Category: Medical Plan: Blood pressure today is well-controlled. Continue current regimen with a blood pressure goal less than 130/80. Advised monitoring blood pressures at home. (4) Hyperlipidemia LDL goal <70: Code(s): E78.5 - Hyperlipidemia, unspecified Category: Medical Plan: Continue statin therapy. Previously we requested patient to complete lipid profile however this is not completed. Patient states that she will get this done with her next lab work. Ideally, LDL goal less than 70. (5) JOHN on CPAP: Code(s): G47.33 - Obstructive sleep apnea (adult) (pediatric) Category: Medical Plan: Continue CPAP therapy. Advised heart healthy diet, regular exercise as tolerated, losing weight, med compliance, and aggressive management of vascular risk factors. Follow-up in 6 months. In the interim, patient will call the office with any concerns or change in symptoms. Advised patient to seek ER care in case of chest pain not resolved with rest. This note was generated using voice recognition software. While every effort has been made to ensure accuracy and proper cooker cleaner, there may be occasional errors that could affect the content or meaning of the described symptoms. Orders: Orders Potassium Today E87.6 - Hypokalemia Coding Level of Care Code Est Pt Level 4 (55163) Complex EM visit Add On G2211 Diagnoses CHF (congestive heart failure) I50.9 Type 2 diabetes mellitus with stage 4 chronic kidney disease, with long-term current use of insulin E11.22; N18.4; Z79.4 Chronic kidney disease stage: stage 4 (severe) Diabetes mellitus half-way insulin use: with half-way use Essential hypertension I10 Hyperlipidemia LDL goal <70 E78.5 JOHN on CPAP G47.33 Time Spent (min) 33 Comment Time spent in reviewing the chart, test results, assessment, counseling and documentation.
[2025-08-19 13:26] VITALS: BP 132/68; PULSE 67; BMI 32.0
--- OUTSIDE RECORDS SUMMARY | 2025-08-20 06:16 | XMS_ITS | Data Portability ---
Author Organization [place] [facility] Address [address] [place] [id number] Care Team Providers Care Director Motion Picture Name Role Phone KACIE GARCIA Primary Care Provider [phone] Assessment Encounter Date Assessment Date Assessment LastModified [...] None Plan/Discussion: Plans to transport herself to [facility]. Proper Personal Protective Equipment (PPE), including gloves, eye protection and masks were donned and doffed appropriately and all equipment cleaned using approved technique with germicidal disposable wipes prior to and after care of this patient [facility]. Time On Scene with [...] for possible airway management -Pt going to [facility], expect called to ED and patient handed off to [facility] Pt and roomate is on agreement [...] Recorded Time Breast reduction completed Amy tobias, [employer] [address], [place], [address], [place] [facility] 12/10/2021 16:07:36 amputation of toe completed Amy No via, [employer] [address], [place], [address], [place] [facility] 12/10/2021 16:07:46 abdominoplasty completed Amy Yoder , [employer] [address], [place], [address], [place] [facility] 12/10/2021 16:07:55 Imaging Results None recorded. Procedure Notes None recorded. Medical Equipment None Reported. Allergies Allergen ID Allergen Name Allergen Category Reaction Reaction Severity Criticality Documentation Date Start Date Code Code System Note Provider Name and Address Organization Details Recorded Time [id number] baclofen medicatio n Not available Not available Not available 12/10/2021 1292 RxNorm Amy Yoder, [employer] [address], [address], [place] [facility] 15:58:42 [id number] Substance with sulfonami de structure and antibacte rial mechanism of action (substanc e) medicatio n Not available Not available Not available 01/06/2022 21882 8003 SNOMED ELENO Urena [address] [facility], [address], [place] [facility] 13:01:26 [...] Not Available Not Available Not Available FreeStyle [place] Lite kit active Not Available Not Available [...] Smoker Amy Yoder NP [address], [place], [address], [place] [facility] 12/10/2021 16:07:13 Do You [...] available 2021 13:01:08 Medical History Condition Response Coronary Artery Disease Y Depression Y Diabetes Y CHF Y Stroke Y Asthma Y High Cholesterol Y Hypertension Y Gynecological HistoryNo gynecological history recorded. Obstetrics History GPAL:G 0 P 0 0 0 0 Past Encounters Encounter ID Performer Location Encounter Start Date Encounter Closed Date Diagnosis/Indication Diagnosis SNOMED-CT Code Diagnosis ICD10 Code Diagnosis IMO Codes Diagnosis Note [id number] Amy Yoder NP [facility] [address] [place] [address] 12/10/2021 15:57:24 01/10/2022 18:29:44 [id number] ELENO Rosario [facility] [address] [place] [address] 01/06/2022 12:06:10 01/07/2022 11:10:14 Abscess of skin and/or subcutaneous tissue 65634861 L02.91 dental abscess w/ some suspected airway [...] Member ID Guarantor Name 01/10/2022 2 [place] [facility] Natalie Cutler [id number] Natalie Cutler 01/10/2022 1 *SELF PAY* Natalie Cutler [id number] Natalie Cutler 01/10/2022 1 [facility] - DOS PRIOR TO 2022 - DUAL ELIGIBLE (MEDICARE REPLACEMENT/AD VANTAGE - HMO) Natalie Cutler [id number] Natalie Cutler 01/10/2022 1 [facility] - DOS PRIOR TO 2022 - DUAL ELIGIBLE (MEDICARE REPLACEMENT/AD VANTAGE - HMO) Natalie Cutler [id number] Natalie Cutler 01/10/2022 1 [place]: [facility] Natalie Cutler [id number] Natalie Cutler 01/10/2022 1 [facility] - DOS PRIOR TO 2022 - MEDICARE [place]VANTAGE [place] (MEDIC[place] REPLACEMENT/AD VANTAGE - PPO) Natalie Cutler [id number] Natalie Cutler 01/10/2022 1 [facility] - DOS PRIOR TO 2022 - DUAL ELIGIBLE (MEDICARE REPLACEMENT/AD VANTAGE - HMO) Natalie Cutler [id number] Natalie Cutler Notes Date Note Type Note [...] the patient to f/u with an ENT. MARLENI Padron, [place], [address], [place] [facility] 01/08/2022 17:51:27 01/06/2022 text/html 61 YO F [facility] to provider [facility] [...] is warm. ELENO Jarrell [address], [place], [address], [place] [facility] 01/06/2022 14:04:29 OBGyn Episode No OBEpisode recorded.
--- OUTSIDE RECORDS SUMMARY | 2025-08-20 06:17 | XMS_ITS | Data Portability ---
Author Organization [employer], [facility] Address [address] [place] [address] Care Team Providers Care [employer] Lot Attendant Name Role Phone HIM CCA OTHER Assessment Encounter Date Assessment Date Assessment LastModified by Organization Details LastModified Time 03/02/2023 03/02/2023 I have reviewed and agree with the Assessment and Plan as documented by the Nurse Clinical. I provided real-time medical direction via phone [...] Assessment and Plan as documented by the Nurse Clinical. Patient given the opportunity to ask questions. [...] chest pain or shortness of breath. Per rail car repairer on the scene, Patient is leaning forward but not tripoding. She states that she normally breathes this way. She is not in distress but does appear uncomfortable. There is no increased work of breathing. Exam is not a warming to rail car repairer on the scene. Her vital signs are [...] Assessment and Plan as documented by the Nurse Clinical. Patient given the opportunity to ask questions. As per above, patient with hypokalemia unresponsive to oral supplements. Per rail car repairer on the scene, VSS, no symptoms. K is 2.6. Cr is 1.8. Impression: Hypokalemia - repeated critical values in the setting of CKD without ability to recheck and frequently monitor in this setting. Additionally unable to evaluate for low mag which could be contributing. Discussed with patient and she agrees given the urgency of the situation. Plan: Transported to [place] ED. Expect call made. Not available 06/09/2024 10:12:54 Plan of Treatment Reminders Order Date Submit Date Provider Last Modified By Organization Details Last Modified Time Details Appointments None recorded . Lab rapid SARS CoV 2 Ag, QL IA, respirat ory specimen 2024 025 [facility], [address] [place] [address], [id number] 5 18:25:57 rapid flu (A+B) 2024 025 [facility], [address] [place] [address], [id number] 5 18:25:57 BMP, serum or plasma 2024 025 [facility], [address] [place] [address], [id number] 5 18:26:12 BMP, serum or plasma 2023 024 [facility], [address] [place] [address], [address] [place] [address] 4 19:48:59 BMP, serum or plasma 2023 024 [facility], [address] [place] [address], [id number] 4 08:14:39 rapid flu (A+B) 2023 024 [facility], [address] [place] [address], [id number] 4 18:27:02 rapid SARS CoV 2 Ag, QL IA, respirat ory specimen 2023 024 [facility], [address] [place] [address], [id number] 4 18:27:18 respirat ory pathogen s DNA + RNA panel, ANITA+prob e, nasophar ynx 2023 024 [facility] (Centralized Electronic Ordering - All Locations), Patient Can Go To The Location Of Their Choice, [id number] 4 18:05:53 Referral None recorded . Procedures None recorded . Surgeries None recorded . Imaging electroc ardiogra m 2024 025 [facility], [address] [place] [address], [id number] 5 05:01:08 Medication Orders lactated Ringers intraven ous solution [address] [facility], [address] [place] [address], [id number], 5 15:10:32 ondanset gadiel HCl (PF) 4 mg/2 mL injectio n solution 2024 025 [facility], [address] [place] [address], [id number], 5 15:10:32 potassiu m chloride ER 20 mEq tablet,e xtended release [address] [facility], [address] [place] [address], [address], 23:08:22 Patient TargetsNo targets recorded. Patient InstructionsNo instructions recorded. Reason for Referral None Reported. Results Created Date Observation Date Name Description Value Unit Range Abnormal Flag Note LastModifiedBy Organization Detail LastModifiedTime 01/16/20 24 01/17/2024 COVID -19, FLU A+B AND RSV sars-cov-2, ANITA Not Detect ed not detect ed Not Available [facility] ([facility]) [address] [place], [address], 01/17/2024 18:05:53 01/16/20 24 01/17/2024 COVID -19, FLU A+B AND RSV influenza A, ANITA Detect ed not detect ed abnormal Not Available [facility] ([facility]) [address] [place], [address], 01/17/2024 18:05:53 01/16/20 24 01/17/2024 COVID -19, FLU A+B AND RSV influenza B, ANITA Not Detect ed not detect ed Not Available [facility] ([facility]) [address] [place], [address], 01/17/2024 18:05:53 01/16/20 24 01/17/2024 COVID -19, FLU A+B AND RSV RSV, ANITA Not Detect ed not detect ed Not Available [facility] ([facility]) [address] [facility], [place], [address], 01/17/2024 18:05:53 01/16/2001/17/2024 COVID -19, FLU A+B [...] in this assay . Not Available [facility] ([facility]) [address] [facility], [place], [address], 01/17/2024 18:05:53 01/16/20 24 01/16/2024 rapid SARS CoV 2 Ag, QL IA, respi rator y speci men rapid SARS CoV 2 Ag, QL IA, respiratory specimen negati ve Not Available [facility] ed [address] [place] [address], [address] [place] [address] 01/16/2024 15:11:23 01/16/20 24 01/16/2024 rapid flu (A+B) Flu negati ve Not Available [facility] ed [address] [place] [address], [address] [place] [address] 01/16/2024 15:11:17 01/20/20 25 01/19/2025 rapid flu (A+B) Flu negati ve Not Available [facility] ed [address] [place] [address], [address] [place] [address] 01/19/2025 14:46:17 01/20/20 25 01/19/2025 rapid SARS CoV 2 Ag, QL IA, respi rator y speci men rapid SARS CoV 2 Ag, QL IA, respiratory specimen negati ve Not Available [facility] ed [address] [place] [address], [address] [place] [address] 01/19/2025 14:46:14 01/20/20 25 01/19/2025 elect junior diogr am No observ ation record ed. [email or web address] [facility] [address] [place] [address], [address] [place] [address] 01/19/2025 18:26:33 Result Notes None recorded. Medical Equipment None Reported. Allergies Allergen ID Allergen Name Allergen Category Reaction Reaction Severity Criticality Documentation Date Start Date Code Code System Note Provider Name and Address Organization Details Recorded Time 65807 Substance with sulfonami de structure and antibacte rial mechanism of action (substanc e) medicatio n Not available Not available Not available 01/19/2025 90491 8003 SNOMED Not Available [facility] - production 13:11:58 73341 baclofen medicatio n Not available Not available Not available 01/19/2025 1292 RxNorm Not Available [facility] 13:11:58 Medications Name Sig Start Date Stop [...] Not Available Not Available Not Available [employer] Boyd Lite kit active Not Available Not Avail [...] Not Available Not Available Vitals Date Recorded Body temperature Body weight Respiratory rate Oxygen saturation Oxygen saturation in Arterial blood by Pulse oximetry Heart rate Systolic And Diastolic Provider Name and Address Organization Details Last Updated DateTime 4 101 [degF] 78368.3 2 g 22 /min 93 % 93 % 102 /min 132/76 mm[Hg] Not Available [employer] [employer] 4 15:07:43 Date Recorded Body temperature Body weight Respiratory rate Body height Heart rate Oxygen saturation Oxygen saturation in Arterial blood by Pulse oximetry Systolic And Diastolic Provider Name and Address Organization Details Last Updated DateTime 5 98.1 [degF] 32844.8 48 g 14 /min 167.64 cm 88 /min 98 % 98 % 130/78 mm[Hg] Not Available [employer] [employer] 5 14:12:56 Date Recorded Heart rate Body weight Respiratory rate Oxygen saturation Oxygen saturation in Arterial blood by Pulse oximetry Body height Body temperature Systolic And Diastolic Provider Name and Address Organization Details Last Updated DateTime 3 80 /min 013588 g 14 /min 96 % 96 % 162.56 cm 97.4 [degF] 150/65 mm[Hg] Not Available [employer] - [employer] 3 13:52:48 Date Recorded Heart rate Body weight Respiratory rate Oxygen saturation Oxygen saturation in Arterial blood by Pulse oximetry Body temperature Systolic And Diastolic Provider Name and Address Organization Details Last Updated DateTime 4 86 /min 77801.8 08 g 16 /min 97 % 97 % 97.8 [degF] 176/80 mm[Hg] Not Available [employer] - [employer] 4 12:47:36 Date Recorded Oxygen saturation Oxygen saturation in Arterial blood by Pulse oximetry Respiratory rate Body temperature Heart rate Systolic And Diastolic Provider Name and Address Organization Details Last Updated DateTime 4 99 % 99 % 16 /min 98.1 [degF] 88 /min 182/90 mm[Hg] Not Available [employer] 4 09:00:34 Social History None recorded. Functional Status None recorded. Mental Status None recorded. Family History Nothing Reported. Medical History No medical history recorded. Gynecological HistoryNo gynecological history recorded. Obstetrics History GPAL:G 0 P 0 0 0 0 Past Encounters Encounter ID Performer Location Encounter Start Date Encounter Closed Date Diagnosis/Indication Diagnosis SNOMED-CT Code Diagnosis ICD10 Code Diagnosis IMO Codes Diagnosis Note [id number] Junaid Felix MD Main - [address] [address] 12/01/2021 15:12:14 06/02/2022 15:19:20 Nasal congestion 23281940 R09.81 Congestion of nasal sinus 80315503 R09.81 [id number] Dez Carrillo MD Main - [facility] [address] [place] [id number] 12/02/2021 12:18:57 07/17/2022 14:20:33 [id number] Easton [facility]ahan [facility] [address] [place] [id number] 02/01/2022 16:35:18 06/09/2022 14:47:07 Congestive heart failure 27244285 I50.9 Patient presents with edema attriuted to CHF. She had already been seen in clinic earlier in the day and bumex dose was increased. There was no dyspnea or acute symptoms to merit IV loop diuretic administra tion at home. [id number] Rancho Polo MD Main - [facility] [address] [place] [id number] 03/18/2022 16:59:05 06/07/2022 12:12:53 Exposure to SARS-CoV-2 637970763 Z20.822 [id number] Junaid Felix MD Main - [facility] [address] [place] [id number] 05/30/2022 15:02:11 06/09/2022 12:57:37 Dyspnea on exertion 62151802 R06.09 [id number] Beba Rios MD Main - [facility] [address] [place] [phone] 10/05/2022 17:31:55 10/07/2022 10:24:22 Acute viral bronchitis 298908600 J20.8 [id number] Junaid Felix MD Main - [facility] [address] [place] [phone] 01/12/2023 15:54:12 01/17/2023 10:30:44 Viral gastroenteritis [id number] A08.4 [id number] Rancho Polo MD Main - [facility] [address] [place] [phone] 03/02/2023 13:52:40 03/10/2023 10:46:13 Peripheral edema 862639597 R60.9 [id number] Rosetta Zhang MD Main - [facility] [address] [place] [phone] 01/16/2024 15:07:33 01/16/2024 22:27:10 Fever [id number] R50.9 [id number] Xiao Guerrero MD Main - [facility] [address] [place] [phone] 06/07/2024 12:44:50 06/10/2024 22:12:37 Hypokalemia 23720477 E87.6 I provided real -time medical direction via phone for this encounter, and was available for additional phone based assistance as needed. I have reviewed and agree with the Assessment and Plan as documented by the Nurse Clinical. Patient given the opportunit y to ask questions. 63 yo seen yesterday in ED for hypokalemi a to 2.5, now being seen by [facility] for close follow up. Just started taking K supplments a few hours ago this am. Unclear the dose as these pills were placed in a pill pack (unable to separate/c larify dose per rail car repairer) .Repeat lab 2.6. Will administer 80mEq and advised her to continue taking prescribed supplement al K. will request follow up with [facility] for POC labs on Saturday 06/09. Reviewed warning signs/sx. [id number] Rosetta Zhang MD Main - [address] [phone] 06/09/2024 09:00:29 06/10/2024 22:41:56 Hypokalemia [id number] E87.6 [id number] Rosalva Millard MD [facility] - [address] [phone] 01/19/2025 14:12:54 01/20/2025 14:44:36 Nausea and vomiting 56281846 R11.2 R19.7 [id number] As noted, we were called to see this patient regarding concerns of nausea and vomiting. Evaluation in the field was performed by my rail car repairer colleague, as noted above, I provided real-time [...] are negative. EKG shows evidence of prior SD without acute ischemic indicators and QTc 472.Cr [...] Conde Member ID Guarantor Name 01/20/2025 1 [facility] - DOS PRIOR TO 2022 - DUAL ELIGIBLE (MEDICARE REPLACEMENT/AD VANTAGE - HMO) Natalie Cutler [id number] Natalie Cutler 01/20/2025 1 [facility] - DOS ON OR AFTER 2022 - DUAL ELIGIBLE - SNF OPTIONS AND ONE CARE (MEDICARE REPLACEMENT/AD VANTAGE - HMO) Natalie Cutler [id number] Natalie Cutler Notes Date Note Type Note [...] .................... .................... .................... .................... .................... .................... . Nurse Clinical Note From Ramses Aguila: Pt caox3 in chair. Pt reports her left foot started swelling x7 days ago, got worse last night. Pt denies trauma, pain, difficulty breathing, dizziness or headache. [place] warm and dry, +1 pedal edema left [...] .................... . Disposition: Fulfilled Rancho Polo MD [address] [place] [address],[address], [place], [address], [employer] [facility] 03/10/2023 08:51:17 01/16/2024 text/html CRC Nurse Triage [...] denies any sob Rosetta Zhang MD [address] [facility],[address], [place], [address], [facility] 01/16/2024 17:54:07 06/07/2024 text/html CRC Nurse Triage Notes (Oliviaale Anne): Reason For Request: pt's VNA reporting lab [...] take a diuretic. Member agreeable to an [facility] visit. Nurse Clinical Organization Information for Benigno Monique Business Legal Name: [facility] Address: [address] [place] [address], [place] [address], Manager Of Global: Damian Taylor MD CLIA No.: [id number] Nurse Clinical POC Test Results from Benigno Monique [facility] (13:27:22) pH: 7.388 pH units pCO2: 38.9 mmHg pO2: 54.6 mmHg Na: 138 mmol/L K: 2.6 mmol/L iCa: 1.10 mmol/L Cl: 100 mmol/L TCO2: 23.3 mEq/L Hct: 33 % Hb: 11.2 g/dL Glu: 505 mg/dL Lac: 4.20 mmol/L Cr: 1.77 mg/dL BUN: 17 mg/dL A .................... .................... .................... .................... .................... .................... .................... . Nurse Clinical Note From Benigno Monique: Pt sts no complaints today. Sts feels fine. Sent to recheck POc bloodwork. Pt started K this morning prescribed by her pcp. Pt denies dizziness , weakness, cp, sob , headache, NVD. Pt says she had Dr bowser Monday and they called her and said K was low and had gout. Baseline vitals assessed, POc bloodwork k 2.6. Lungs clear. [facility] contacted and 80 ml/eq po given. [facility] scheduling Follow up POc bloodwork for Monday or Monday. Pt education on signs indicating the ER. Pt advised to follow up with pcp. .................... .................... .................... .................... .................... .................... .................... . Disposition: Fulfilled Xiao Guerrero MD [address] [facility],[address], [place], [phone], [employer] [facility] 06/07/2024 23:08:29 06/09/2024 text/html CRC Nurse Triage Notes (Anne Malave): Reason For Request: Revisit Chief Complaints: Electrolyte Imbalance PMH: Diabetes, Heart Disease, Hypertension, COPD/Asthma, CHF Other Allergies: baclofen and sulfur Comments: [facility] Remarksneeds follow up for POC istat [...] diuretic. Member agreeable to an [facility] visit. Nurse Clinical Organization Information for Kayleen Nish Kemp [employer] Legal Name: [facility] Address: [address] [place] [address], [place] [address], Manager Of Global: Damian Taylor MD CLIA No.: [id number] Nurse Clinical POC Test Results from Flyfransisca Nish Kemp [employer] (08:56:03) pH: 7.41 pH units pCO2: 36.3 mmHg pO2: 33.4 mmHg Na: 142 mmol/L K: 2.6 mmol/L iCa: 1.08 mmol/L Cl: 107 mmol/L TCO2: 22.6 mEq/L Hct: 34 % Hb: 11.5 g/dL Glu: 213 mg/dL Lac: 2.5 mmol/L Cr: 1.8 mg/dL BUN: 22 mg/dL A .................... .................... .................... .................... .................... .................... .................... . Nurse Clinical Note From Nish Beyer: Today s visit is a f/u to recheck potassium levels. Pt s K was 2.5 on Monday, she was treated with oral potassium and given a prescription for oral potassium which she has been taking as directed. Pt denies any complaints including CP, SOB, palpitations, KRAMER, dizziness, f/n/v/d. Pt is alert, NAD. VSS. Afebrile. Non focal neuro exam. Normal gait. Today s potassium is 2.6. [facility] contacted and recommended the pt be seen in the ED. Pt agreeable to ambulance transport to [facility]. [facility] to [facility]. .................... .................... .................... .................... .................... .................... .................... . Disposition: Fulfilled Rosetta Zhang MD [address] [facility],[address], [place], [address], [employer] [facility] 06/09/2024 10:13:32 01/19/2025 text/html HPI: reports nausea and vomiting started yesterday, also having loose stools x 5. Not tolerating po intake. afebrile. denies all other symptoms except reports a sore throat. No sick contacts. She is requesting an [facility] visit. .................... .................... .................... .................... .................... .................... .................... . CRC Nurse Triage Notes (Kathryn Gonzalez): Chief Complaints: Nausea / Vomiting, Diarrhea, Sore Throat PMH: Coronary Artery Disease, Hypertension, COPD/Asthma, Congestive Heart Failure, Chronic Kidney Disease PMH Reviewed at 01/19/2025 - 13:11 Allergies Reviewed at 01/19/2025 - 13:11 Comments: CRC RN does not need additional information to process visit -Gilda RN Nurse Clinical Organization Information for Mita Delacruz Business Legal Name: [facility] Address: [address] [place] [address], Manager Of Global: Rd Smith MD IA No.: [id number] Nurse Clinical POC Test Results from Mita Delacruz Rapid COVID antigen (14:22:18) COVID: - Attachments [...] Hb: 12.2 g/dL A mmol/L Cartridge Number: [id number] Attachments uploaded as part of this test result can be found under Documents section. .................... .................... .................... .................... .................... .................... .................... . Nurse Clinical Note From Mita Delacruz: [facility] makes pt contact. She is found seated in a recliner in her sparsely furnished apartment where she lives alone. She is watching [facility] approach. She appears to be fatigued, but [...] her blood sugar has been high today. [facility] obtains vital signs and pt is assessed. Lung sounds are clear and equal to auscultation. Abdomen is soft and nontender w/ no guarding, distension, or pulsating masses noted. No back pain or CVA tenderness and CMS is intact in all four extremities. Pt still has her gall bladder and her appendix. Pt is swabbed for COVID/flu and both are negative. [facility] contacts [facility] and discusses the above. [facility] orders an IV and bmp and an EKG. [facility] obtains a 12-lead EKG that shows a sinus rhythm w/ artifact. No acute ST or T wave abnormalities are noted. A 20ga IV is established in the R forearm and blood is drawn for bmp. IV is flushed and locked w/ a saline lock and secured. [facility] orders 500mls LR and 4mg zofran IV for pt after determining pt does not want to go to the hospital today. [facility] discusses her concerns about DKA w/ the pt. Pt agrees to IV fluids and meds and a revisit tomorrow. [facility] also orders pt to only take 20units of her Lantus tonight. 500mls LR are administered and 4mg zofran is administered through the IV line SIVP. Pt falls asleep during treatment. She appears to tolerate tx well. She cannot tell [facility] if she feels better or not post fluids, but she would like to take a nap. [facility] discusses s/s that require pt to seek emergency care. She gives her verbal understanding and repeats back to [facility] the instructions for taking a reduced dose of Lantus this evening. [facility] is clear. Report completed by CANDE Delacruz [id number]. [facility] Lab Orders: rapid SARS CoV 2 Ag, QL IA, respiratory specimen: Performed rapid flu (A+B): Performed BMP, serum or plasma: Performed [facility] Medication Orders: lactated Ringers intravenous solution: Administered ondansetron HCl (PF) 4 mg/2 mL injection solution: Administered .................... .................... .................... .................... .................... .................... .................... . [facility] Consulted: Rosalva Millard .................... .................... .................... .................... .................... .................... .................... . Disposition: Dayami Millard MD [address] [facility],[address], [place], [address], [employer] 01/19/2025 19:42:30 OBGyn Episode No OBEpisode recorded.
== END 2025-08-19 13:54 | disposition home or self-care (01) ==
LOC: HO.HCS 13:23
PROVIDERS: PCP Internal Medicine
DX: I50.9 Heart failure, unspecified (principal); E11.22 Type 2 diabetes mellitus with diabetic chronic kidney disease; N18.4 Chronic kidney disease, stage 4 (severe); Z79.4 Long term (current) use of insulin; I12.9 Hypertensive chronic kidney disease with stage 1 through stage 4 chronic kidney disease, or unspecified chronic kidney disease; E78.5 Hyperlipidemia, unspecified; G47.33 Obstructive sleep apnea (adult) (pediatric)
CPT/HCPCS: 99214; G2211

== ENCOUNTER → 2025-08-19 13:22 | Outpatient (BNVA) | payer OTHER, SELFPAY | PROVIDERS: PCP Internal Medicine | DX: E11.22 Type 2 diabetes mellitus with diabetic chronic kidney disease (principal); I50.9 Heart failure, unspecified; G47.33 Obstructive sleep apnea (adult) (pediatric); E78.5 Hyperlipidemia, unspecified; Z79.4 Long term (current) use of insulin; Z99.89 Dependence on other enabling machines and devices | CPT/HCPCS: 99212 ==